=== PATIENT | female | born 1990 | race Caucasian/White ===

== ENCOUNTER 2021-06-30 11:00 | Inpatient (IN) | payer MEDICAID, SELFPAY ==
[2021-06-30 11:03] VITALS: BP 137/80; PULSE 107; RESP 17; TEMP 36.6; O2SAT 99; BMI 17.0
--- NOTE | 2021-06-30 11:25 | EX.ED.SAOD ---
HPI History of Present Illness Chief Complaint: Substance Abuse Narrative Narrative: Patient presenting for detox. She states she is already spoken with social work outpatient and she is also talked to 180 about getting residential housing after she detoxes. Patient states that she uses Suboxone, fentanyl, cocaine, Xanax. Her last use was about 3 days ago. Her major symptoms are fatigue. She is not vomiting. She does not admit to any cramping. She states he has no significant medical problems other than drug use. She denies EtOH abuse. [facility] Medical History (Updated 06/30/21 @ 11:39 by Suni King) Anxiety Asthma Depression Home Medications bupropion HCl [Wellbutrin SR] 150 mg PO DAILY 06/30/21 [History Last Taken Unknown] hydroxyzine HCl 50 mg PO QHS 06/30/21 [History Last Taken Unknown] mirtazapine [Remeron] 15 mg PO DAILY 06/30/21 [History Last Taken Unknown] quetiapine [Seroquel] 100 mg PO QHS 06/30/21 [History Last Taken Unknown] ropinirole [Requip] 0.5 mg PO QHS 06/30/21 [History Last Taken Unknown] Allergy/AdvReac Type Severity Reaction Status Date / Time No Known Allergies Allergy Verified 06/30/21 11:01 Surgical History (Updated 06/30/21 @ 11:39 by Suni King) [place] teeth extracted Social History Smoking Status: Current every day smoker tobacco type: cigarettes ROS ROS ED Constitutional Constitutional ED: Denies chills or fever(s) Eyes Eyes: Denies blurry vision or diplopia ENT ENT ED: Denies rhinorrhea or sore throat Cardiovascular Cardiovascular: Denies chest pain or palpitations Respiratory/Chest Respiratory/Chest: Denies cough, dyspnea or sputum Gastrointestinal Gastrointestinal: Denies abdominal pain, nausea or vomiting Genitourinary Genitourinary ED: Denies dysuria or urinary frequency Musculoskeletal Musculoskeletal: Denies arthralgias or myalgias Integumentary Denies abscess or rash Neurologic Neurologic: Denies headache(s), paresthesias or weakness EXAM Physical Exam Const Vital Signs: 06/30/21 11:03 Temperature 97.8 F Temperature Source Temporal Pulse Rate 107 H Respiratory Rate 17 Blood Pressure 137/80 H Blood Pressure Mean 99 Pulse Ox 99 Oxygen Delivery Method Room Air General Appearance ED: Negative for pallor HEENT Reports normocephalic, head/scalp atraumatic and moist mucous membranes Eyes PERRL and EOMs intact bilaterally Neck no lymphadenopathy and supple Chest Wall inspection of chest normal and palpation of chest normal Resp normal respiratory effort and clear to auscultation bilaterally Auscultation: Negative for rales, rhonchi or wheezes Cardio regular rate and regular rhythm GI normal to inspection, nondistended, normoactive bowel sounds and non-distended Auscultation: normoactive bowel sounds Palpation: soft Narrative: Deferred Extremity normal to inspection General Extremety ED: Yes edema and tenderness General Extremity: edema Neuro oriented x3 and CN's II-XII intact bilaterally Sensorium / Orientation: alert Motor Exam: strength 5/5 throughout Psych mental status grossly normal Attitude: No agitated Skin no rashes or lesions noted and no wounds General Skin Exam: Negative for jaundice or pallor MDM MDM MDM Narrative Medical decision making narrative: 31-year-old female presenting for detox from Suboxone, fentanyl, Xanax, cocaine. She states she last used 3 days ago. She is not have any significant symptoms currently. She is already been able to set up outpatient care following hospitalization. She is spoken to 180. Patient's blood work today is normal. EtOH negative. Drug screen positive for cocaine but negative for visit as a pains, and fentanyl. EtOH negative. Serum test is negative. protective services case worker did come and speak with her in the emergency room. She was discussed with the hospitalist for admission. Impression: 1 opioid detox 2. Benzodiazepine detox Lab Data Attestation: I reviewed the patient's lab results. Labs: Laboratory Results - last 24 hr 06/30/21 06/30/21 06/30/21 11:42 11:42 11:42 WBC 4.4 RBC 4.72 Hgb 14.0 Hct 41.3 MCV 87.5 MCH 29.7 MCHC 33.9 RDW Std Deviation 41.4 RDW Coeff of Jose 13.0 Plt Count 307 MPV 9.4 Immature Gran % (Auto) 0.200 Neut % (Auto) 64.4 Lymph % (Auto) 27.8 Ford % (Auto) 6.2 Eos % (Auto) 0.9 Baso % (Auto) 0.5 Absolute Neuts (auto) 2.8 Absolute Lymphs (auto) 1.22 Nucleated RBC % 0 Sodium Potassium Chloride Carbon Dioxide Anion Gap BUN Creatinine Estim Creat Clear Calc Est GFR (MDRD) Af Amer Est GFR (MDRD) Non-Af BUN/Creatinine Ratio Glucose Calcium Total Bilirubin AST ALT Alkaline Phosphatase Total Protein Albumin Globulin Albumin/Globulin Ratio Serum , Qual NEGATIVE Urine Opiates Screen Urine Methadone Screen Ur Barbiturates Screen Ur Phencyclidine Scrn Ur Amphetamines Screen U Methamphetamin-MDMA U Benzodiazepines Scrn Urine Cocaine Screen U Cannabinoids Screen Ur Drug Screen Comment Ethyl Alcohol 3.0 06/30/21 06/30/21 11:42 11:54 WBC RBC Hgb Hct MCV MCH MCHC RDW Std Deviation RDW Coeff of Jose Plt Count MPV Immature Gran % (Auto) Neut % (Auto) Lymph % (Auto) Ford % (Auto) Eos % (Auto) Baso % (Auto) Absolute Neuts (auto) Absolute Lymphs (auto) Nucleated RBC % Sodium 141 Potassium 4.0 Chloride 111 H Carbon Dioxide 25.0 Anion Gap 5 BUN 9 Creatinine 0.72 Estim Creat Clear Calc 96.15 Est GFR (MDRD) Af Amer 121 Est GFR (MDRD) Non-Af 100 BUN/Creatinine Ratio 12.5 Glucose 99 Calcium 9.2 Total Bilirubin 0.50 AST 6 L ALT 15 Alkaline Phosphatase 85 Total Protein 8.3 H Albumin 3.8 Globulin 4.5 H Albumin/Globulin Ratio 0.8 L Serum , Qual Urine Opiates Screen NEGATIVE Urine Methadone Screen NEGATIVE Ur Barbiturates Screen NEGATIVE Ur Phencyclidine Scrn NEGATIVE Ur Amphetamines Screen NEGATIVE U Methamphetamin-MDMA NEGATIVE U Benzodiazepines Scrn NEGATIVE Urine Cocaine Screen POSITIVE H U Cannabinoids Screen NEGATIVE Ur Drug Screen Comment Ethyl Alcohol Discharge Plan Triage Chief Complaint: Substance Abuse ED Provider: Shaw Moore Dx/Rx/DC Orders Prescriptions: No Action bupropion HCl [Wellbutrin SR] 150 mg Tablet Sustained-Release 12 Hr 150 mg PO DAILY RF: 0 hydroxyzine HCl 50 mg Tablet 50 mg PO QHS RF: 0 quetiapine [Seroquel] 100 mg Tablet 100 mg PO QHS RF: 0 ropinirole [Requip] 0.5 mg Tablet 0.5 mg PO QHS RF: 0 mirtazapine [Remeron] 15 mg Tablet 15 mg PO DAILY RF: 0
[2021-06-30 11:58] LABS: Absolute Lymphocyte Count 1.22 X10^3/uL (0.83-4.51); Absolute Neutrophil Count 2.8 X10^3/uL (2.0-7.7); Basophil# 0.02 X10^3/uL; Basophil% 0.5 % (0-1); Eosinophil# 0.04 X10^3/uL; Eosinophils% 0.9 % (0-5); Hematocrit 41.3 % (37-47); Lymphocyte # 1.22 X10^3/ul (0.83-4.51); Lymphocyte % 27.8 % (19-41); Mean Corp Hgb Conc 33.9 g/dL (32-36); Mean Corpuscular Hgb 29.7 pg (27.0-32.0); Mean Corpuscular Volume 87.5 fL (81-99); Mean Platelet Vol. 9.4 fl (6.2-12.0); Monocyte# 0.27 X10^3/uL; Monocyte% 6.2 % (0-10); NRBC Flagged by Analyzer 0 % (0-5); Neutrophil # 2.83 X10^3/uL (2.7-7.7); Neutrophil % 64.4 % (47-70); Platelet Count 307 K/mm3 (150-450); RBC Distribution Width SD 41.4 fl (35.1-43.9); Red Blood Count 4.72 M/mm3 (4.2-5.4); White Blood Count 4.4 K/mm3 (4.4-11.0)
[2021-06-30 12:10] LABS: ALB/GLOB Ratio 0.8 RATIO (0.9-2.4); AST(SGOT) 6 U/L (15-37); Alanine Aminotransfer ALT/SGPT 15 U/L (13-56); Albumin, Serum 3.8 g/dL (3.2-5.0); Alkaline Phosphatase 85 U/L (45-117); Anion Gap 5 (5-15); BUN 9 mg/dL (7-18); BUN/Creat Ratio 12.5 RATIO (10-20); Calcium,Total 9.2 mg/dL (8.5-10.1); Chloride 111 mmol/L (98-107); Creatinine, Serum 0.72 mg/dL (0.55-1.02); EST Glomerular Filtration Rate 100 mL/min (>60); Est Glom Filt Rate - Afr Amer 121 mL/min (>60); Estimated Creatinine Clearance 96.15 ml/min; Globulin 4.5 g/dL (2.2-4.2); Glucose 99 mg/dL (74-106); Protein, Total 8.3 g/dL (6.4-8.2); Sodium Level 141 mmol/L (136-145)
[2021-06-30 12:26] LABS: Internal QC Validated? YES +Cl - CLEAR BKGD; Pregnancy, Serum, hCG Quali. NEGATIVE Negative
[2021-06-30 12:30] LABS: Amphetamine Urine VISTA NEGATIVE (<1000 ng/mL); Barbiturate Urine VISTA NEGATIVE (< 200 ng/mL); Benzodiazepine Urine VISTA NEGATIVE (< 200 ng/mL); Cocaine Urine VISTA POSITIVE (< 300 ng/mL); Ecstacy Urine VISTA NEGATIVE (< 500 ng/mL); Methadone Urine VISTA NEGATIVE (< 300 ng/mL); PCP Urine VISTA NEGATIVE (< 25 ng/mL); THC Urine VISTA NEGATIVE (< 50 ng/mL); Vista UDS pH Range 6
--- NOTE | 2021-06-30 12:42 | HP.PCM.HOS_ITS ---
[facility] - General General Date of Admission: 06/30/21 HPI Narrative HECTOR ARREGUIN, is a 31 F with a PMH as outlined who presents for acute opioid detox. She had reached out to [facility] for residential treatment. She uses suboxone, fentanyl, cocaine and xanax, with her last use about 3 days prior to admission. She complained of weakness and anxiety but denied any tremors, dizziness, nausea, vomiting or chest pain. REview of systems was otherwise negative. Patient admitted to using cocaine and benzodiazepines as well and states that the last time she used cocaine or Xanax was about 3 days prior to admission. She denied any alcohol use but did admit to smoking. Urine tox was positive for cocaine but negative for benzodiazepines and opiates Vitals on admission were blood pressure 113/68 with pulse rate of 87, respiratory rate of 18 and temperature of 97.8 Fahrenheit. She was saturating at 100% on room air. CBC and BMP were unremarkable. She has been admitted to manage for acute opioid withdrawal as well as benzodiazepine withdrawal [facility] Medical History (Updated 06/30/21 @ 16:[address] Noris Thompson MD) Anxiety Asthma Depression Irregular heart beat PTSD (post-traumatic stress disorder) Smoker Substance abuse Home Medications bupropion HCl [Wellbutrin SR] 150 mg PO DAILY 06/30/21 [History Last Taken Unknown] hydroxyzine HCl 50 mg PO QHS 06/30/21 [History Last Taken Unknown] mirtazapine [Remeron] 15 mg PO DAILY 06/30/21 [History Last Taken Unknown] quetiapine [Seroquel] 100 mg PO QHS 06/30/21 [History Last Taken Unknown] ropinirole [Requip] 0.5 mg PO QHS 06/30/21 [History Last Taken Unknown] Allergy/AdvReac Type Severity Reaction Status Date / Time No Known Allergies Allergy Verified 06/30/21 11:01 Surgical History (Updated 06/30/21 @ 13:50 by Bev Joshua) History of removal of cyst [place] teeth extracted Social History Smoking Status: Current every day smoker tobacco type: cigarettes ROS Constitutional Constitutional: Denies fatigue, fever(s), malaise or weakness ENT HEENT: Denies dysphagia or headache(s) Cardiovascular Cardiovascular: Denies chest pain, dyspnea on exertion, lightheadedness, orthopnea, palpitations or rapid heart rate Respiratory/Chest Respiratory/Chest: Denies cough, dyspnea, shortness of breath at rest, shortness of breath with exertion or wheezing Gastrointestinal Gastrointestinal: Reports constipation; Denies abdominal pain, nausea or vomiting Genitourinary Genitourinary: Denies burning urination or dysuria Musculoskeletal Musculoskeletal: Denies arthralgias, joint pain, joint stiffness or joint swelling Neurologic Neurologic: Denies confusion, dizziness, focal weakness, headache(s), numbness, seizures or syncope Psychiatric Psychiatric: Denies anxiety Allergic/Immunologic Allergic/Immunologic: Denies asthma Vital Signs Vital Signs Vital Signs: 06/30/21 11:03 Temperature 97.8 F Temperature Source Temporal Pulse Rate 107 H Respiratory Rate 17 Blood Pressure 137/80 H Blood Pressure Mean 99 Pulse Ox 99 Oxygen Delivery Method Room Air Weight Weight: 118 lb 9.739 oz Body Mass Index (BMI) 17.0 Physical Exam Const alert and oriented x3 General Appearance: cooperative HEENT normocephalic, head/scalp atraumatic, hearing grossly normal bilaterally and moist oral mucous membranes Eyes PERRL, EOMs intact bilaterally and conjunctivae normal Neck no lymphadenopathy, supple and no JVD Resp normal respiratory effort, no retractions, no use of accessory muscles and clear to auscultation bilaterally Cardio regular rate, regular rhythm, S1 normal heart sound, S2 normal heart sound and no murmurs GI normal to inspection, nondistended, normoactive bowel sounds, soft to palpation, non-tender and non-distended Extremity normal to inspection, full ROM and no clubbing, cyanosis or edema Peripheral Pulses: Yes pulses 2+ throughout Skin no rashes or lesions noted Neuro oriented x3 and CN's II-XII intact bilaterally Sensorium / Orientation: awake and alert Psych Mood & Affect: anxious Results Lab / Micro Data Result Diagrams: 06/30/21 11:42 06/30/21 11:42 Labs: Laboratory Results - last 24 hr 06/30/21 11:42: WBC 4.4, RBC 4.72, Hgb 14.0, Hct 41.3, MCV 87.5, MCH 29.7, MCHC 33.9, RDW Std Deviation 41.4, RDW Coeff of Jose 13.0, Plt Count 307, MPV 9.4, Immature Gran % (Auto) 0.200, Neut % (Auto) 64.4, Lymph % (Auto) 27.8, [place] % (Auto) 6.2, Eos % (Auto) 0.9, Baso % (Auto) 0.5, Absolute Neuts (auto) 2.8, Absolute Lymphs (auto) 1.22, Nucleated RBC % 0 06/30/21 11:42: Ethyl Alcohol 3.0 06/30/21 11:42: Serum , Qual NEGATIVE 06/30/21 11:42: Sodium 141, Potassium 4.0, Chloride 111 H, Carbon Dioxide 25.0, Anion Gap 5, BUN 9, Creatinine 0.72, Estim Creat Clear Calc 96.15, Est GFR (MDRD) Af Amer 121, Est GFR (MDRD) Non-Af 100, BUN/Creatinine Ratio 12.5, Glucose 99, Calcium 9.2, Total Bilirubin 0.50, AST 6 L, ALT 15, Alkaline Phosphatase 85, Total Protein 8.3 H, Albumin 3.8, Globulin 4.5 H, [place] min/Globulin Ratio 0.8 L 06/30/21 11:54: Urine Opiates Screen NEGATIVE, Urine Methadone Screen NEGATIVE, Ur Barbiturates Screen NEGATIVE, Ur Phencyclidine Scrn NEGATIVE, Ur Amphetamines Screen NEGATIVE, U Methamphetamin-MDMA NEGATIVE, U Benzodiazepines Scrn NEGATIVE , Urine Cocaine Screen POSITIVE H, U Cannabinoids Screen NEGATIVE, Ur Drug Sc reen Comment Assessment & Plan Assessment/Plan (1) Acute opioid withdrawal: (2) Benzodiazepine abuse: PLAN: #Acute opioid withdrawal * Patient very anxious. Urine tox negative for opiates. * Started on opiate withdrawal protocol with buprenorphine. Monitor COWS score. * Adjunctive meds for symptomatic relief. * #Polysubstance abuse * In addition to opiates, patient also uses benzodiazepines and cocaine. Her last use of benzodiazepines was about 3 days ago. * Since patient is at risk of withdrawal, will start on benzodiazepine withdrawal protocol with Ativan. * Adjunctive meds for symptomatic relief. * #Depression: On mirtazapine and bupropion #PTSD: On Seroquel bupropion as well as mirtazapine DVT prophylaxis: Low risk. Encourage ambulation. Charges/Coding Visit Charges Inpatient E&M: 21649 Init Hosp L3
[2021-06-30 12:46] VITALS: BP 111/72; PULSE 87; RESP 14; TEMP 36.4; O2SAT 100
--- NOTE | 2021-06-30 12:52 | CM.ED ---
Social Work Consult: Substance Abuse Referral source: Dr. Moore Met with patient in room. Introduced self and social worker school role. Patient agreeable to speak with this social worker school. Patient reports to abuse/use multiple substances including cocaine, Suboxone (from the streets), and others. Patient here seeking medical management of withdrawal symptoms. Patient reports to have been speaking with a social worker school at [facility]. Patient reports to have also been talking with a Sarah at [facility] for residential after completed with program at [facility]. Sarah's contact number is [phone]. Per patient, Sarah is holding a bed. Patient verbally agreeing to [facility] contract. Patient request for this social worker school to contact patient mother, Jeanne about patient being admitted to the [facility] program. Active support provided. [facility] updated on patient admission to [facility] and intent to follow up with [facility] for residential. Idalia provided with contact number for Sarah. Shira Rincon MSW, JOSE-S
[2021-06-30 13:38] VITALS: BMI 16.5
[2021-06-30 13:43] VITALS: BP 113/68; PULSE 87; RESP 18; TEMP 36.6; O2SAT 100
[2021-06-30] MEDS: LORazepam 1 MG Tablet PO ×3 (14:25→22:54)
[2021-06-30] MEDS: Methocarbamol 750 MG Tablet 1500 MG PO ×2 (14:26→23:30)
[2021-06-30] MEDS: Buprenorphine HCl 2 MG TAB.SUBL SL ×2 (14:26→22:53)
[2021-06-30] MEDS: cloNIDine HCl 0.1 MG Tablet PO (14:26)
[2021-06-30 18:22] VITALS: BP 109/64; PULSE 95; RESP 18; TEMP 36.7; O2SAT 98
[2021-06-30 22:40] VITALS: BP 114/68; PULSE 105; RESP 18; TEMP 36.8; O2SAT 98
[2021-06-30] MEDS: hydrOXYzine PAM 25 MG Capsule 50 MG PO (22:57)
[2021-06-30] MEDS: Pramipexole Di-HCl 0.25 MG Tablet PO (22:57)
[2021-06-30] MEDS: QUEtiapine 100 MG Tablet PO (22:58)
[2021-07-01 02:45] VITALS: BP 105/63; PULSE 95; RESP 16; TEMP 36.5; O2SAT 100
[2021-07-01] MEDS: LORazepam 1 MG Tablet PO ×6 (02:48→22:28)
[2021-07-01] MEDS: Buprenorphine HCl 2 MG TAB.SUBL SL ×3 (06:47→22:26)
[2021-07-01 06:58] VITALS: BP 104/79; PULSE 118; RESP 16; TEMP 37; O2SAT 100
--- NOTE | 2021-07-01 08:02 | PN.HOSP_ITS ---
Subjective Subjective Patient seen and examined. She has no active complaints and feels well. She had an uneventful night and review of systems is otherwise negative. Objective Data Objective Data Vital Signs: Vital Signs Temp Pulse Resp BP Pulse Ox 98.6 F 118 H 16 104/79 100 07/01/21 06:58 07/01/21 06:58 07/01/21 06:58 07/01/21 06:58 07/01/21 06:58 Oxygen Delivery Method Room Air Weight: 114 lb 15.996 oz Body Mass Index (BMI) 16.5 Intake & Output: Intake and Output for Last 24 Hours 06/29/21 06/30/21 07/01/21 23:59 23:59 23:59 Intake Total 360 / 560 200 / 200 Balance 360 / 560 200 / 200 Medical Nutrition Assessment Dietitian: Malnutrition Criteria Met Start: 06/30/21 15:44 Freq: Status: Active Protocol: Document 06/30/21 15:44 AG (Rec: 06/30/21 15:44 AG [id number]) Nutrition Malnutrition Evidence of Malnutrition Exists Yes Malnutrition (severe): Acute Illness/Injury Evidenced By Suboptimal Energy Intake ( Severe),Weight Loss (Severe), Physical Changes (Severe) Clinical Problem Acute Disease or Injury Related Malnutrition Etiology severe, acute malnutrition r/t inadequate energy intake d/t nausea, substance abuse Signs/Symptoms as evidenced by unintentional wt loss of 20#/15% x 1 month, estimated PO intake meeting < 50% of estimated energy needs, severe muscle wasting/fat loss in acromion, orbital, and clavicle areas per physical exam Status Active Problem Recommendation Dietitian Recommendations/Changes Continue regular diet; will add 4oz ensure enlive w/meals and medpass per pt request. Will adjust supplements as appropriate. Lab / Micro Data Result Diagrams: 06/30/21 11:42 06/30/21 11:42 Labs: Laboratory Results - last 24 hr 06/30/21 11:42: WBC 4.4, RBC 4.72, Hgb 14.0, Hct 41.3, MCV 87.5, MCH 29.7, MCHC 33.9, RDW Std Deviation 41.4, RDW Coeff of Jose 13.0, Plt Count 307, MPV 9.4, Immature Gran % (Auto) 0.200, Neut % (Auto) 64.4, Lymph % (Auto) 27.8, Mccreary % (Auto) 6.2, Eos % (Auto) 0.9, Baso % (Auto) 0.5, Absolute Neuts (auto) 2.8, Absolute Lymphs (auto) 1.22, Nucleated RBC % 0 06/30/21 11:42: Ethyl Alcohol 3.0 06/30/21 11:42: Serum , Qual NEGATIVE 06/30/21 11:42: Sodium 141, Potassium 4.0, Chloride 111 H, Carbon Dioxide 25.0, Anion Gap 5, BUN 9, Creatinine 0.72, Estim Creat Clear Calc 96.15, Est GFR (MDRD) Af Amer 121, Est GFR (MDRD) Non-Af 100, BUN/Creatinine Ratio 12.5, Glucose 99, Calcium 9.2, Total Bilirubin 0.50, AST 6 L, ALT 15, Alkaline Phosphatase 85, Total Protein 8.3 H, Albumin 3.8, Globulin 4.5 H, Albumin/Globulin Ratio 0.8 L 06/30/21 11:54: Urine Opiates Screen NEGATIVE, Urine Methadone Screen NEGATIVE, Ur Barbiturates Screen NEGATIVE, Ur Phencyclidine Scrn NEGATIVE, Ur Amphetamines Screen NEGATIVE, U Methamphetamin-MDMA NEGATIVE, U Benzodiazepines Scrn NEGATIVE, Urine Cocaine Screen POSITIVE H, U Cannabinoids Screen NEGATIVE, Ur Drug Screen Comment Physical Exam Const alert and oriented x3 General Appearance: cooperative Exam Limitations: no limitations HEENT normocephalic, head/scalp atraumatic, hearing grossly normal bilaterally and moist oral mucous membranes Head and Scalp: normocephalic Eyes PERRL, EOMs intact bilaterally and conjunctivae normal Neck no lymphadenopathy, supple and no JVD Resp normal respiratory effort, no retractions, no use of accessory muscles and clear to auscultation bilaterally Cardio regular rate, regular rhythm, S1 normal heart sound, S2 normal heart sound and no murmurs GI normal to inspection, nondistended, normoactive bowel sounds, soft to palpation, non-tender and non-distended Extremity normal to inspection, full ROM and no clubbing, cyanosis or edema Peripheral Pulses: Yes pulses 2+ throughout Skin no rashes or lesions noted Neuro oriented x3 and CN's II-XII intact bilaterally Sensorium / Orientation: awake and alert Psych affect normal Assessment & Plan Assessment/Plan (1) Acute opioid withdrawal: (2) Benzodiazepine abuse: PLAN: #Acute opioid withdrawal * On opiate withdrawal protocol with buprenorphine. Monitor COWS score. * Adjunctive meds for symptomatic relief. * #Polysubstance abuse * In addition to opiates, patient also uses benzodiazepines and cocaine. Her las t use of benzodiazepines was about 3 days ago. * Since patient is at risk of withdrawal, on benzodiazepine withdrawal protocol with Ativan. * Adjunctive meds for symptomatic relief. * #Depression: On mirtazapine and bupropion #PTSD: On Seroquel bupropion as well as mirtazapine #Severe malnutrition * Has a BMI of only 16.5. * Nutrition on board: recommendation is to add 4oz Ensure Enlive with meals and medpass per patient request. * DVT prophylaxis: Low risk. Encourage ambulation. Charges/Coding Visit Charges Inpatient E&M: 32604 Subs Hosp L2
[2021-07-01] MEDS: Folic Acid 1 MG Tablet PO (09:33)
[2021-07-01] MEDS: Thiamine Hydrochloride 100 MG Tablet PO (09:33)
[2021-07-01] MEDS: hydrOXYzine PAM 25 MG Capsule 50 MG PO ×2 (09:35→22:26)
[2021-07-01] MEDS: Gabapentin 300 MG Capsule PO ×2 (09:39→18:11)
[2021-07-01] MEDS: buPROPion (XL) 150 MG TABLET.XL PO (09:40)
[2021-07-01 11:00] VITALS: BP 115/64; PULSE 98; RESP 18; TEMP 37; O2SAT 100
[2021-07-01 14:32] VITALS: BP 116/76; PULSE 100; RESP 18; TEMP 36.8; O2SAT 100
[2021-07-01 17:00] VITALS: RESP 18
--- NOTE | 2021-07-01 18:53 | ADDICTION ---
Addendum entered by Idalia Soliz 07/01/21 18:55: [facility] will transport oncedischarged. Original Note: This administrative underwriter met with PT to conduct ASAM, MSE, DUDIT assessments and to plan for d/c. PT A+Ox4 and participated actively. All assessments completed and placed in PT's chart. PT plans to f/u with individual counselor at [facility] for follow-up counseling services. PT did not indicate a need for transportation post d/c from [facility].
--- NOTE | 2021-07-01 19:19 | CM.ED ---
BUBBA received voice mail from Sarah Brewer at [facility] requesting call back. Call back number is [phone]. BUBBA called Sarah Brewer at [facility]. Asrah said that patient's mother said that patient is in detox currently. Sarah said that she completed the preadmission screen for patient and patient has been accepted at [facility]. Sarah stated that she can coordinate pick up and delivery driver for patient at discharge however, they do not do weekend admission. Sarah's call back number is listed above. Marilia MALCOLM
[2021-07-01 22:07] VITALS: BP 115/65; PULSE 109; RESP 18; TEMP 36.6; O2SAT 99
[2021-07-01] MEDS: cloNIDine HCl 0.1 MG Tablet PO (22:27)
[2021-07-01] MEDS: Methocarbamol 750 MG Tablet 1500 MG PO (22:27)
[2021-07-01] MEDS: QUEtiapine 100 MG Tablet PO (22:27)
[2021-07-01] MEDS: Pramipexole Di-HCl 0.25 MG Tablet PO (22:27)
[2021-07-01] MEDS: Mirtazapine 15 MG Tablet PO (22:28)
[2021-07-02 02:03] VITALS: BP 107/62; PULSE 104; RESP 18; TEMP 36.7; O2SAT 98
[2021-07-02] MEDS: LORazepam 1 MG Tablet PO ×6 (02:04→21:51)
[2021-07-02] MEDS: Gabapentin 300 MG Capsule PO (03:38)
[2021-07-02] MEDS: hydrOXYzine PAM 25 MG Capsule 50 MG PO ×2 (05:46→22:02)
[2021-07-02] MEDS: Buprenorphine HCl 2 MG TAB.SUBL SL ×2 (05:46→14:54)
[2021-07-02] MEDS: Methocarbamol 750 MG Tablet 1500 MG PO (05:47)
[2021-07-02 05:51] VITALS: BP 122/60; PULSE 111; RESP 16; TEMP 36.5; O2SAT 97
[2021-07-02 08:20] LABS: Thyroid Stim Hormone (TSH) 0.67 uIU/mL (0.358-3.74)
[2021-07-02] MEDS: Thiamine Hydrochloride 100 MG Tablet PO (08:23)
[2021-07-02] MEDS: Folic Acid 1 MG Tablet PO (08:23)
[2021-07-02 08:28] VITALS: BP 116/68; PULSE 100; RESP 16; TEMP 36.4; O2SAT 98
[2021-07-02] MEDS: buPROPion (XL) 150 MG TABLET.XL PO (10:55)
--- NOTE | 2021-07-02 11:23 | PN.HOSP_ITS ---
Subjective Subjective Patient seen and examined. She had no active complaints today. Patient did seem a bit drowsy today night speech was mildly slurred. I think this is because of the medication she has been receiving. Review of systems otherwise negative. Objective Data Objective Data Vital Signs: Vital Signs Temp Pulse Resp BP Pulse Ox 97.6 F L 100 16 116/68 98 07/02/21 08:28 07/02/21 08:28 07/02/21 08:28 07/02/21 08:28 07/02/21 08:28 Oxygen Delivery Method Room Air Weight: 114 lb 15.996 oz Body Mass Index (BMI) 16.5 Intake & Output: Intake and Output for Last 24 Hours 06/30/21 07/01/21 07/02/21 23:59 23:59 23:59 Intake Total 360 / 560 1950 / 2450 500 / 500 Balance 360 / 560 1950 / 2450 500 / 500 Medical Nutrition Assessment Dietitian: Malnutrition Criteria Met Start: 06/30/21 15:44 Freq: Status: Active Protocol: Document 06/30/21 15:44 AG (Rec: 06/30/21 15:44 [id number]) Nutrition Malnutrition Evidence of Malnutrition Exists Yes Malnutrition (severe): Acute Illness/Injury Evidenced By Suboptimal Energy Intake ( Severe),Weight Loss (Severe), Physical Changes (Severe) Clinical Problem Acute Disease or Injury Related Malnutrition Etiology severe, acute malnutrition r/t inadequate energy intake d/t nausea, substance abuse Signs/Symptoms as evidenced by unintentional wt loss of 20#/15% x 1 month, estimated PO intake meeting < 50% of estimated energy needs, severe muscle wasting/fat loss in acromion, orbital, and clavicle areas per physical exam Status Active Problem Recommendation Dietitian Recommendations/Changes Continue regular diet; will add 4oz ensure enlive w/meals and medpass per pt request. Will adjust supplements as appropriate. Lab / Micro Data Result Diagrams: 06/30/21 11:42 06/30/21 11:42 Labs: Laboratory Results - last 24 hr 07/02/21 07:50: TSH 0.67 Physical Exam Const alert and oriented x3 General Appearance: cooperative Orientation / Consciousness: lethargic Exam Limitations: no limitations HEENT normocephalic, head/scalp atraumatic, hearing grossly normal bilaterally and moist oral mucous membranes Head and Scalp: normocephalic Eyes PERRL, EOMs intact bilaterally and conjunctivae normal Neck no lymphadenopathy, supple and no JVD Resp normal respiratory effort, no retractions, no use of accessory muscles and clear to auscultation bilaterally Cardio regular rate, regular rhythm, S1 normal heart sound, S2 normal heart sound and no murmurs GI normal to inspection, nondistended, normoactive bowel sounds, soft to palpation, non-tender and non-distended Extremity normal to inspection, full ROM and no clubbing, cyanosis or edema Peripheral Pulses: Yes pulses 2+ throughout Skin no rashes or lesions noted Neuro oriented x3 and CN's II-XII intact bilaterally Sensorium / Orientation: awake and alert Psych Psych Narrative: flat affect, lethargic Assessment & Plan Assessment/Plan (1) Acute opioid withdrawal: (2) Benzodiazepine abuse: PLAN: #Acute opioid withdrawal * On opiate withdrawal protocol with buprenorphine. Monitor COWS score. * Adjunctive meds for symptomatic relief. * #Polysubstance abuse * In addition to opiates, patient also uses benzodiazepines and cocaine. * On benzodiazepine withdrawal protocol with Ativan. * Adjunctive meds for symptomatic relief. * #Depression: On mirtazapine and bupropion #PTSD: On Seroquel bupropion as well as mirtazapine #Severe malnutrition * Has a BMI of only 16.5. * Nutrition on board: recommendation is to add 4oz Ensure Enlive with meals and medpass per patient request. * DVT prophylaxis: Low risk. Encourage ambulation. Disposition: * Wants to go to an inpatient facility for further rehab. * Case management on board. * Patient accepted at [facility] for admission once medically stable. Charges/Coding Visit Charges Inpatient E&M: 55868 Subs Hosp L2
[2021-07-02 16:00] VITALS: BP 112/64; PULSE 88; RESP 18; TEMP 36.8; O2SAT 98
[2021-07-02 16:22] VITALS: PULSE 90
[2021-07-02] MEDS: Mirtazapine 15 MG Tablet PO (21:51)
[2021-07-02] MEDS: QUEtiapine 100 MG Tablet PO (21:51)
[2021-07-02] MEDS: Pramipexole Di-HCl 0.25 MG Tablet PO (21:52)
[2021-07-02 22:00] VITALS: BP 109/60; PULSE 97; RESP 16; TEMP 36.7; O2SAT 99
[2021-07-03] MEDS: Buprenorphine HCl 2 MG TAB.SUBL SL (02:50)
[2021-07-03 02:57] VITALS: BP 100/49; PULSE 100; RESP 18; TEMP 36.7; O2SAT 98
[2021-07-03] MEDS: LORazepam 1 MG Tablet PO ×2 (05:27→10:57)
[2021-07-03] MEDS: Methocarbamol 750 MG Tablet 1500 MG PO ×2 (05:32→21:15)
[2021-07-03] MEDS: Dicyclomine 10 MG Capsule 20 MG PO (05:32)
[2021-07-03] MEDS: Loperamide 2 MG Capsule PO ×2 (05:32→21:15)
[2021-07-03 10:00] VITALS: BP 100/68; PULSE 58; RESP 14; TEMP 36.6; O2SAT 100
[2021-07-03] MEDS: buPROPion (XL) 150 MG TABLET.XL PO (10:57)
[2021-07-03] MEDS: Folic Acid 1 MG Tablet PO (10:57)
[2021-07-03] MEDS: Thiamine Hydrochloride 100 MG Tablet PO (10:58)
--- NOTE | 2021-07-03 15:41 | PCM.PN.HOSP ---
Subjective Subjective Groggy today. Seen by addiction medicine who did not feel the patient was ready for discharge today. Objective Data Objective Data Vital Signs: Vital Signs Temp Pulse Resp BP Pulse Ox 36.6 C 58 L 14 100/68 100 07/03/21 10:00 07/03/21 10:00 07/03/21 10:00 07/03/21 10:00 07/03/21 10:00 Oxygen Delivery Method Room Air Weight: 52.163 kg Body Mass Index (BMI) 16.5 Intake & Output: Intake and Output for Last 24 Hours 07/01/21 07/02/21 07/03/21 23:59 23:59 23:59 Intake Total 19490 2650 / 2650 Balance 19490 2650 / 2650 Medical Nutrition Assessment Dietitian: Malnutrition Criteria Met Start: 06/30/21 15:44 Freq: Status: Active Protocol: Document 06/30/21 15:44 AG (Rec: 06/30/21 15:44 AG [id number]) Nutrition Malnutrition Evidence of Malnutrition Exists Yes Malnutrition (severe): Acute Illness/Injury Evidenced By Suboptimal Energy Intake ( Severe),Weight Loss (Severe), Physical Changes (Severe) Clinical Problem Acute Disease or Injury Related Malnutrition Etiology severe, acute malnutrition r/t inadequate energy intake d/t nausea, substance abuse Signs/Symptoms as evidenced by unintentional wt loss of 20#/15% x 1 month, estimated PO intake meeting < 50% of estimated energy needs, severe muscle wasting/fat loss in acromion, orbital, and clavicle areas per physical exam Status Active Problem Recommendation Dietitian Recommendations/Changes Continue regular diet; will add 4oz ensure enlive w/meals and medpass per pt request. Will adjust supplements as appropriate. Lab / Micro Data Result Diagrams: 06/30/21 11:42 06/30/21 11:42 Physical Exam Const Constitutional Narrative: Groggy. Afebrile. HEENT Head and Scalp: normocephalic Assessment & Plan Assessment/Plan (1) Acute opioid withdrawal: (2) Benzodiazepine abuse: PLAN: 1. Acute opiate withdrawal Patient is very somnolent and difficult to arouse today. Will discontinue the buprenorphine taper 2. Acute benzodiazepine withdrawal As above, will discontinue the Ativan. Plan is for the patient to go to residential treatment on the Charges/Coding Visit Charges Inpatient E&M: 74975 Subs Hosp L1
[2021-07-03 18:01] VITALS: BP 114/70; PULSE 97; RESP 14; TEMP 36.9; O2SAT 100
[2021-07-03 21:07] VITALS: BP 108/78; PULSE 106; RESP 18; TEMP 36.4; O2SAT 100
[2021-07-03] MEDS: QUEtiapine 100 MG Tablet PO (21:15)
[2021-07-03] MEDS: Mirtazapine 15 MG Tablet PO (21:15)
[2021-07-03] MEDS: hydrOXYzine PAM 25 MG Capsule 50 MG PO (21:15)
[2021-07-03] MEDS: Pramipexole Di-HCl 0.25 MG Tablet PO (21:15)
[2021-07-04 03:10] VITALS: BP 96/61; PULSE 101; RESP 18; TEMP 36.8; O2SAT 98
[2021-07-04 07:34] VITALS: BP 113/84; PULSE 105; RESP 16; TEMP 37; O2SAT 100
[2021-07-04] MEDS: Thiamine Hydrochloride 100 MG Tablet PO (07:41)
[2021-07-04] MEDS: Folic Acid 1 MG Tablet PO (07:42)
[2021-07-04] MEDS: buPROPion (XL) 150 MG TABLET.XL PO (07:42)
[2021-07-04] MEDS: Loperamide 2 MG Capsule PO (07:48)
[2021-07-04] MEDS: Methocarbamol 750 MG Tablet 1500 MG PO (07:48)
[2021-07-04] MEDS: Gabapentin 300 MG Capsule PO (07:48)
[2021-07-04] MEDS: Dicyclomine 10 MG Capsule 20 MG PO (07:48)
--- NOTE | 2021-07-04 08:39 | PCM.DC ---
Discharge Instructions Diet Discharge Diet: No restrictions Activity Discharge Activity: Return to Normal Activity Follow Up Care Test Results: Test results from this visit will be discussed in further detail at your follow-up appointment, if applicable. Discharge Plan Admission Admit Date/Time: 06/30/21 12:51 Primary Reason for Your Visit: opiate and benzodiazepine withdrawal. Attending Provider: Frederic García Discharge Orders/Prescriptions Prescriptions: New loperamide 2 mg Capsule 2 mg PO Q4H PRN PRN (Reason: LOOSE STOOLS) Qty: 0 RF: 0 Continued bupropion HCl [Wellbutrin SR] 150 mg Tablet Sustained-Release 12 Hr 150 mg PO DAILY RF: 0 hydroxyzine HCl 50 mg Tablet 50 mg PO QHS RF: 0 quetiapine [Seroquel] 100 mg Tablet 100 mg PO QHS RF: 0 ropinirole 0.5 mg Tablet 0.5 mg PO QHS RF: 0 mirtazapine [Remeron] 15 mg Tablet 15 mg PO DAILY RF: 0 Referrals / Follow Up: JOHN SYED [Other] Disposition Disposition (needs filled in before D/C Order can be placed): Home, Self Care
--- NOTE | 2021-07-04 08:41 | PCM.DC.SUM ---
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 Patient uses Suboxone, fentanyl, cocaine and alprazolam. Patient was started on buprenorphine as well as lorazepam taper. Patient was seen by addiction medicine on the and the plan is for patient to go to [facility] but that was simply changed over to a facility in [facility], near where she lives. I saw the patient on the and patient was very somnolent but would open her eyes. Initial plan was for patient to be discharged on the but given her condition, that decision was changed. But because of her somnolence, her lorazepam and buprenorphine were discontinued. Patient is more alert today but is complaining of diarrhea. Explained to her that that is likely related with the opiate withdrawal and she can take loperamide which she did actually take earlier this morning. Patient expressed being very anxious about being discharged today and stating that she was never told any of this. There is a note from addiction medicine on the that they did talk to her at that time. With plan at that time was for her to go to [facility]. Patient will be discharged today to go to facility out by [place] in stable condition. Physical Exam Const alert and no apparent distress Constitutional Narrative: appears older than stated age. Psych Mood & Affect: anxious Medical Records Data Medical Nutrition Assessment Dietitian: Malnutrition Criteria Met Start: 06/30/21 15:44 Freq: Status: Active Protocol: Document 06/30/21 15:44 AG (Rec: 06/30/21 15:44 AG [id number]) Nutrition Malnutrition Evidence of Malnutrition Exists Yes Malnutrition (severe): Acute Illness/Injury Evidenced By Suboptimal Energy Intake ( Severe),Weight Loss (Severe), Physical Changes (Severe) Clinical Problem Acute Disease or Injury Related Malnutrition Etiology severe, acute malnutrition r/t inadequate energy intake d/t nausea, substance abuse Signs/Symptoms as evidenced by unintentional wt loss of 20#/15% x 1 month, estimated PO intake meeting < 50% of estimated energy needs, severe muscle wasting/fat loss in acromion, orbital, and clavicle areas per physical exam Status Active Problem Recommendation Dietitian Recommendations/Changes Continue regular diet; will add 4oz ensure enlive w/meals and medpass per pt request. Will adjust supplements as appropriate. Weight / BMI Weight Weight: 52.163 kg Body Mass Index (BMI) 16.5 ABG / Lab / Microbiology Data Result Diagrams: 06/30/21 11:42 06/30/21 11:42 D/C Instructions Discharge Diet: No restrictions Meaningful Use Info Meaningful Use Diagnoses (Choose all that apply): None applicable Discharge Plan Admission Admit Date/Time: 06/30/21 12:51 Primary Reason for Your Visit: opiate and benzodiazepine withdrawal. Attending Provider: Frederic García Discharge Orders/Prescriptions Prescriptions: New loperamide 2 mg Capsule 2 mg PO Q4H PRN PRN (Reason: LOOSE STOOLS) Qty: 0 RF: 0 Continued bupropion HCl [Wellbutrin SR] 150 mg Tablet Sustained-Release 12 Hr 150 mg PO DAILY RF: 0 hydroxyzine HCl 50 mg Tablet 50 mg PO QHS RF: 0 quetiapine [Seroquel] 100 mg Tablet 100 mg PO QHS RF: 0 ropinirole 0.5 mg Tablet 0.5 mg PO QHS RF: 0 mirtazapine [Remeron] 15 mg Tablet 15 mg PO DAILY RF: 0 Referrals / Follow Up: JOHN SYED [Other] Disposition Disposition (needs filled in before D/C Order can be placed): Home, Self Care Charges/Coding Visit Charges Inpatient E&M: 83548 Disch Hosp
--- NOTE | 2021-07-04 09:52 | CASEMGMT ---
Social Work Note BUBBA updated that pt is stating she doesn't know where she is being discharged today. BUBBA placed a call to [facility] with [facility] who states pt is going to [facility] and transportation is arranged for 10:00am. BUBBA updated RN. Yuli Duarte [employer], WILDLIFE REHABILITATOR
== END 2021-07-04 10:49 | DRG 773 ==
LOC: ED 11:56 → MS3 12:56
PROVIDERS: Admitting Provider Student in an Organized Health Care Education/Training Program; Emergency Provider Student in an Organized Health Care Education/Training Program
DX: F11.23 Opioid dependence with withdrawal (principal); E43 Unspecified severe protein-calorie malnutrition; F13.10 Sedative, hypnotic or anxiolytic abuse, uncomplicated; F17.210 Nicotine dependence, cigarettes, uncomplicated; F41.9 Anxiety disorder, unspecified; F14.90 Cocaine use, unspecified, uncomplicated; R19.7 Diarrhea, unspecified; F32.A Depression, unspecified; F43.10 Post-traumatic stress disorder, unspecified; Z68.1 Body mass index [BMI] 19.9 or less, adult
CPT/HCPCS: 80053; 80307; 82077; 84443; 84703; 85025; 97802; 99283; 99406

== ENCOUNTER → 2022-08-09 | Outpatient (CLI) | payer MEDICAID, SELFPAY ==
[2022-08-09 16:43] LABS: Absolute Lymphocyte Count 1.27 X10^3/uL (0.83-4.51); Basophil# 0.03 X10^3/uL; Basophil% 0.5 % (0-1); Eosinophil# 0.05 X10^3/uL; Eosinophils% 0.8 % (0-5); Hematocrit 40.9 % (37-47); Hemoglobin 13.7 g/dL (12.0-15.0); Lymphocyte # 1.27 X10^3/ul (0.83-4.51); Lymphocyte % 19.1 % (19-41); Mean Corp Hgb Conc 33.5 g/dL (32-36); Mean Corpuscular Hgb 30.7 pg (27.0-32.0); Mean Corpuscular Volume 91.7 fL (81-99); Mean Platelet Vol. 9.4 fl (6.2-12.0); Monocyte# 0.31 X10^3/uL; Monocyte% 4.7 % (0-10); NRBC Flagged by Analyzer 0 % (0-5); Neutrophil # 4.98 X10^3/uL (2.7-7.7); Neutrophil % 74.7 % (47-70); Platelet Count 255 K/mm3 (150-450); RBC Distribution Width CV 12.6 % (11.6-14.6); RBC Distribution Width SD 41.6 fl (35.1-43.9); Red Blood Count 4.46 M/mm3 (4.2-5.4); White Blood Count 6.7 K/mm3 (4.4-11.0)
[2022-08-09 17:05] LABS: Hemoglobin A1c 4.5 % (3.8-5.6)
[2022-08-09 17:28] LABS: ALB/GLOB Ratio 1.2 RATIO (0.9-2.4); AST(SGOT) 9 U/L (15-37); Alanine Aminotransfer ALT/SGPT 17 U/L (13-56); Albumin, Serum 4.4 g/dL (3.2-5.0); Alkaline Phosphatase 45 U/L (45-117); Anion Gap 7 (5-15); BUN 10 mg/dL (7-18); BUN/Creat Ratio 11.6 RATIO (10-20); Calcium,Total 9.3 mg/dL (8.5-10.1); Chloride 107 mmol/L (98-107); Cholesterol 164 mg/dL (200); Creatinine, Serum 0.86 mg/dL (0.55-1.02); EST Glomerular Filtration Rate 81 mL/min (>60); Est Glom Filt Rate - Afr Amer 98 mL/min (>60); Globulin 3.6 g/dL (2.2-4.2); Glucose 95 mg/dL (74-106); High Density Lipoprotein 62 mg/dL; Potassium 3.6 mmol/L (3.5-5.1); Sodium Level 141 mmol/L (136-145); Thyroid Stim Hormone (TSH) 1.22 uIU/mL (0.358-3.74); Triglycerides 136 mg/dL; Very Low Density Lipoprotein 27 mg/dL (5-40)
[2022-08-09 17:39] LABS: HIV - WCH Non-Reactive (Nonreactive)
[2022-08-11 08:10] LABS: HEPATITIS B SURFACE AG Negative (Negative); Hep C Antibodies Non Reactive (Non Reactive); Hepatitis A IgM Antibody Negative (Negative); Hepatitis B Core AB IgM Negative (Negative)
== END | disposition home or self-care (01) ==
LOC: BIMLAB 15:56
PROVIDERS: PCP Internal Medicine; Referring Provider Internal Medicine; Visit Provider Internal Medicine
DX: F41.9 Anxiety disorder, unspecified (principal); F19.11 Other psychoactive substance abuse, in remission; F32.A Depression, unspecified; Z79.899 Other long term (current) drug therapy
CPT/HCPCS: 36415; 80053; 80061; 80074; 83036; 84443; 85025; 86703

== ENCOUNTER → 2023-02-26 | Outpatient (CLI) | payer MEDICAID, SELFPAY | END | disposition home or self-care (01) | LOC: BIMLAB 14:20 | PROVIDERS: PCP Internal Medicine; Visit Provider Internal Medicine | DX: R68.83 Chills (without fever) (principal) | CPT/HCPCS: 87635; 87804 ==

== ENCOUNTER → 2023-09-27 | Outpatient (CLI) | payer MEDICAID, SELFPAY ==
[2023-09-27 11:23] LABS: Absolute Lymphocyte Count 2.06 X10^3/uL (0.83-4.51); Absolute Neutrophil Count 3.6 X10^3/uL (2.0-7.7); Basophil# 0.03 X10^3/uL; Basophil% 0.5 % (0-1); Eosinophil# 0.13 X10^3/uL; Eosinophils% 2.1 % (0-5); Hematocrit 42.2 % (37-47); Hemoglobin 13.9 g/dL (12.0-15.0); Lymphocyte # 2.06 X10^3/ul (0.83-4.51); Mean Corp Hgb Conc 32.9 g/dL (32-36); Mean Corpuscular Hgb 30.5 pg (27.0-32.0); Mean Corpuscular Volume 92.5 fL (81-99); Mean Platelet Vol. 9.9 fl (6.2-12.0); Monocyte# 0.46 X10^3/uL; Monocyte% 7.4 % (0-10); NRBC Flagged by Analyzer 0 % (0-5); Neutrophil # 3.56 X10^3/uL (2.7-7.7); Neutrophil % 56.8 % (47-70); Platelet Count 262 K/mm3 (150-450); RBC Distribution Width CV 12.4 % (11.6-14.6); RBC Distribution Width SD 42.5 fl (35.1-43.9); Red Blood Count 4.56 M/mm3 (4.2-5.4); White Blood Count 6.3 K/mm3 (4.4-11.0)
[2023-09-27 12:21] LABS: ALB/GLOB Ratio 1.1 RATIO (0.9-2.4); AST(SGOT) 22 U/L (15-37); Alanine Aminotransfer ALT/SGPT 25 U/L (13-56); Alkaline Phosphatase 43 U/L (45-117); Anion Gap 5 (5-15); BUN 10 mg/dL (7-18); BUN/Creat Ratio 11.8 RATIO (10-20); Calcium,Total 9.1 mg/dL (8.5-10.1); Chloride 107 mmol/L (98-107); Cholesterol 132 mg/dL (200); Creatinine, Serum 0.85 mg/dL (0.55-1.02); EST Glomerular Filtration Rate 82 mL/min (>60); Est Glom Filt Rate - Afr Amer 99 mL/min (>60); Globulin 3.5 g/dL (2.2-4.2); Glucose 91 mg/dL (74-106); High Density Lipoprotein 50 mg/dL; Potassium 4.1 mmol/L (3.5-5.1); Protein, Total 7.5 g/dL (6.4-8.2); Sodium Level 139 mmol/L (136-145); Thyroid Stim Hormone (TSH) 1.83 uIU/mL (0.358-3.74); Triglycerides 125 mg/dL; Very Low Density Lipoprotein 25 mg/dL (5-40)
[2023-09-27 12:28] LABS: Hemoglobin A1c 4.4 % (3.8-5.6)
== END | disposition home or self-care (01) ==
LOC: BIMLAB 09:24
PROVIDERS: PCP Internal Medicine; Visit Provider Internal Medicine
DX: F41.9 Anxiety disorder, unspecified (principal); F32.A Depression, unspecified; Z79.899 Other long term (current) drug therapy
CPT/HCPCS: 36415; 80053; 80061; 83036; 84443; 85025

== ENCOUNTER 2024-12-07 19:27 | Inpatient (IN) | payer MEDICAID, SELFPAY ==
[2024-12-07 19:27] VITALS: BP 151/104; PULSE 106; RESP 16; TEMP 36.8; O2SAT 100; BMI 21.4
--- NOTE | 2024-12-07 19:32 | ED.RN ---
pt removed syringe with clear liquid substance in it from her purse. she said can you please get rid of this for me. i don't want it. its fentanyl this rn placed syringe in sharps container upon pts request.
[2024-12-07 20:04] LABS: Hematocrit 34.9 % (37-47); Hemoglobin 12.0 g/dL (12.0-15.0); Immature Granulocytes Count 0.010 X10^3/uL (0.0-0.0); Mean Corp Hgb Conc 34.4 g/dL (32-36); Mean Corpuscular Volume 87.5 fL (81-99); Mean Platelet Vol. 9.4 fl (6.2-12.0); NRBC Flagged by Analyzer 0 % (0-5); POSITIVE MORPHOLOGY YES; Platelet Count 216 K/mm3 (150-450); RBC Distribution Width CV 13.1 % (11.6-14.6); RBC Distribution Width SD 41.5 fl (35.1-43.9); Red Blood Count 3.99 M/mm3 (4.2-5.4); White Blood Count 4.5 K/mm3 (4.4-11.0)
[2024-12-07 20:07] LABS: Differential Indicated SCAN CRITERIA MET
[2024-12-07 20:54] LABS: Alcohol, Blood (Medical)-Serum < 10.1 mg/dL (<=10.0); Anion Gap 12 (5-15); BUN 12 mg/dL (4-19); BUN/Creat Ratio 17.0 RATIO (10-20); Calcium,Total 9.1 mg/dL (7.6-11.0); Carbon Dioxide 23.1 mmol/L (21.0-32.0); Chloride 104 mmol/L (98-108); Estimated Creatinine Clearance 117.70 ml/min (50-250); Glucose 112 mg/dL (70-99); Potassium 3.9 mmol/L (3.3-5.1)
[2024-12-07 21:13] LABS: Internal QC Validated? YES +Cl - CLEAR BKGD; Pregnancy, Serum, hCG Quali. NEGATIVE Negative; Record Kit Lot#, Serum Preg. 962302
[2024-12-07 21:27] VITALS: BP 112/60; PULSE 88; RESP 20; TEMP 36.6; O2SAT 100
--- OUTSIDE RECORDS SUMMARY | 2024-12-07 21:43 | XMS RPT_ITS | CCD ---
Author Organization [facility] Care Team Providers Care Debeader Name Role Phone Pcp, None Primary Care Provider UnavailRoxie Hurley Primary Care Provider Roxie Howell PA-C Primary Care Provider Dr. Odin Abraham Primary Care Provider Dr. Odin Abraham Attending Provider [phone] Dr. Odin Abraham Referring Provider [phone] Unavailable Primary Care Provider Unavailabl e Unavailable Primary Care Provider Unavailabl e Leigh Odin Primary Care Unavailable Odin Abraham Attending Unavailable Odin Abraham Referring Unavailable Odin Abraham Attending Unavailable Odin Abraham Referring Unavailable Leigh Odin Primary Care Unavailable Leigh Odin Primary Care Unavailable Leigh Odin Attending Unavailable Odin Abraham MD Primary Care Provider ROXIE HOWELL Primary Care Unavailable NICOLE TRINIDAD Attending Unavailable ROXIE HOWELL Primary Care Unavailable NIR NAVARRO Attending Unavailable ODIN ABRAHAM Primary Care Unavailable CATIE FLORES Attending Unavailable Medications Current Medications Medication Drug Class(es) Dates Sig (Normalized) Sig (Original) [id number] 200 actuat albuterol 0.09 mg/actuat metered dose inhaler (3 sources) beta2-Adrenergic Agonist Start: 07-04-2017 take 2 puff(s) by inhalation every six hours as needed for wheezing albuterol 108 (90 Base) MCG/ACT inhaler Indications: Mild intermittent asthma without complication Inhale 2 puffs into the lungs every 6 hours as needed for Wheezing and/or Shortness of breath. 1 Inhaler 4 07/04/2017 Active Start: 07-04-2017 take 2 puff(s) by in halation every six hours as needed for wheezing albuterol 108 (90 Base) MCG/ACT inhaler Indications: Mild intermittent asthma without complication Inhale 2 puffs into the lungs every 6 hours as needed for Wheezing and/or Shortness of breath. 1 Inhaler 4 07/04/2017 Active aluminum chloride 200 mg/ml topical solution (4 sources) Start: 05-28-2022 Aluminum Chlor oliver (Drysol) 20 % solution Active 1 APPLIC TOPICAL TWICE A WEEK 37.5 May 28, 2022 1:00am Start: 08-24-2020 aluminum chlor oliver (DRYSOL) 20 % external solution Indications: Excessive sweating Use daily at night 35 mL 5 08/24/2020 Active Start: 07-04-2017 aluminum chlor oliver (DRYSOL) 20 % external solution Indications: Excessive sweating Use daily at night 35 mL 5 07/04/2017 Active amoxicillin 875 mg / clavulanate 125 mg oral tablet (1 source) Penicillin-class Antibacterial Start: 05-05-2023 End: 05-10-2023 take 1 tablet by mouth twice daily amoxicillin-clavulanate potassium (AUGMENTIN) 875-125 mg per tablet Take 1 tablet by mouth two times a day for 5 days. 10 tablet 0 05/05/2023 05/10/2023 Active Comment on above: Take 1 tablet by blanquita two times a day for 5 days. 12 hr buPROPion hydrochloride 150 mg extended release oral tablet (12 sources) Aminoketone Start: 06-30-2021 End: 05-28-2022 take 1 tablet by mouth once daily Bupropion Hcl (Wellbutrin Sr) 150 mg tablet sustained-release 12 hr Active 150 MG PO DAILY May 28, 2022 9:54am buPROPion (WELLB UTRIN) 100 mg tablet Take 100 mg by mouth. Active take 1 tablet by mouth twice peter ly buPROPion (WELLBUTRIN XL) 150 MG 24 hr tablet Take 150 mg by mouth two times daily. 0 Active Comment on above: Take 100 mg by mouth . cephalexin 500 mg oral capsule (1 source) Cephalosporin Antibacterial Start: 10-27-19 End: 11-03-19 take 1 capsule by mouth four times daily cephALEXin (KEFLEX) 500 mg capsule Indications: Redness of skin Take 1 capsule by mouth four times daily for 7 days. 28 capsule 10/26/2024 11/02/2024 Active DULoxetine 30 mg delayed release oral capsule (1 source) Serotonin and Norepinephrine Reuptake Inhibitor take 1 capsule by mouth once daily in the morning DULoxetine (CYMBALTA) 30 MG capsule Take 30 mg by mouth daily. Take 1 capsule by mouth once daily in the morning. 0 Active fluticasone propionate 0.05 mg/actuat metered dose nasal spray (3 sources) Corticosteroid Start: 04-14-20 take 2 spray(s) by mouth once daily fluticasone (FLONASE) 50 mcg/actuation nasal spray Indications: Sore throat Use 2 Sprays in each nostril once daily. Rinse mouth after use. 1 Each 04/14/2024 Active Start: 09-12-2020 Fluticasone pr opionate (FLONASE) 50 MCG/ACT nasal spray Indications: Subacute frontal sinusitis 2 sprays by Each Nare route daily. 16 g 1 09/12/2020 Active levonorgestrel 0.823596 mg/hr intrauterine system (9 sources) Progestin, Progestin-containing Intrauterine Device Start: 01-08-2023 End: 01-06-2031 levonorgestrel (MIRENA) 21 mcg/24 hours (8 yrs) 52 mg IUD Indications: Encounter for IUD insertion 1 Each by INTRAUTERINE route as directed. 1 Each 01/08/2023 01/06/2031 Active Comment on above: 1 Each by INTRAUTERI NE route as directed. 12 hr loratadine 5 mg / pseudoephedrine sulfate 120 mg extended release oral tablet (1 source) alpha-Adrenergic Agonist Start: 09-12-2020 take 5-120 mg by mouth once loratadine-pseudoephe drine (CLARITIN-D 12-HOUR) 5-120 MG per tablet Indications: Subacute frontal sinusitis Take 1 tablet by mouth two times a day. 60 tablet 0 09/12/2020 Active 1 ml medroxyPROGESTERone acetate 150 mg/ml injection (3 sources) Progestin Start: 08-29-2020 medroxyPROGESTERone (DEPO-PROVERA) 150 MG/ML injection Indications: Encounter for Depo-Provera contraception , Encounter for initial prescription of contraceptives Inject 1 mL into the muscle every 3 months. 1 mL 0 08/29/2020 Active Start: 07-04-2017 medroxyPROGEST ERone (DEPO-PROVERA) 150 MG/ML injection Indications: Encounter for female control Inject 1 mL into the muscle every 3 months. 1 mL 0 07/04/2017 Active methylPREDNISolone (1 source) Corticosteroid Start: 01-11-2021 methylPREDNISolone (MEDROL DOSEPAK) 4 MG tablet Indications: Subacute frontal sinusitis follow package directions 21 tablet 0 01/11/2021 Active Metoprolol-hydroCHLOROt hiazide (METOPROLOL-HCTZ ER PO) (1 source) take 1 tablet by mouth once daily Metoprolol-hydroCHLORO thiazide (METOPROLOL-HCTZ ER PO) Take 25 mg by mouth. Take 1 tablet by mouth daily 0 Active mirtazapine 15 mg oral tablet (13 sources) Start: 06-30-2021 End: 05-28-2022 take 1 tablet by mouth once daily Mirtazapine (Remeron) 15 mg tablet Active 15 MG PO DAILY May 28, 2022 9:54am Start: 01-11-2021 take 1 tablet by blanquita th once daily mirtazapine (REMERON) 45 MG tablet Indications: Prolonged posttraumatic stress disorder , Anxiety and depression Take 1 tablet by mouth nightly. 30 tablet 1 01/11/2021 Active take 1 tablet by blanquita th once daily mirtazapine (REMERON) 30 MG tablet Take 30 mg by mouth nightly. 0 Active Comment on above: Take 15 mg by mouth. naltrexone 380 mg injection (10 sources) Opioid Antagonist Start: 05-28-2022 naltrexone ER (VIVITROL) 380 mg injection Inject intramuscularly. 05/28/2022 Active Start: 05-28-2022 inject 380 mg by int ramuscular injection every month Naltrexone Microspheres (Vivitrol) 380 mg suspension,extended rel recon Active 380 MG IM EVERY MONTH May 28, 2022 1:00am Comment on above: Inject intramuscular ly. predniSONE 20 mg oral tablet (2 sources) Start: 4 End: 4 take 2 tablets by mouth once daily predniSONE (DELTASONE) 20 mg tablet Indications: Sore throat Take 2 tablets by mouth once daily for 5 days. 10 tablet 04/14/2024 04/19/2024 Active Start: 10-07-2023 End: 10-12-2023 take 2 tablets by mouth once daily predniSONE (DELTASONE) 20 mg tablet Indications: Sore throat Take 2 tablets by mouth once daily for 5 days. 10 tablet 0 10/07/2023 10/12/2023 Active QUEtiapine 100 mg oral tablet (13 sources) Atypical Antipsychotic Start: 06-30-2021 End: 05-28-2022 take 1 tablet by mouth at bedtime Quetiapine (Seroquel) 100 mg tablet Active 100 MG PO AT BEDTIME May 28, 2022 9:54am Start: 01-11-2021 take 150 mg by mouth once daily in the evening QUEtiapine Fumarate 150 MG TB24 Indications: Prolonged posttraumatic stress disorder , Anxiety and depression Take 150 mg by mouth every evening. 30 each 1 01/11/2021 Active Comment on above: Take 100 mg by mouth . sertraline 25 mg oral tablet (1 source) Serotonin Reuptake Inhibitor Start: 07-04-19 18 take 1 tablet by mouth once daily sertraline (ZOLOFT) 25 MG tablet Indications: Anxiety and depression Take 1 tablet by mouth daily. 30 tablet 0 07/04/2017 Active 24 hr venlafaxine 37.5 mg extended release oral capsule (1 source) Serotonin and Norepinephrine Reuptake Inhibitor Start: 01-12-20 21 take 1 capsule by mouth once daily venlafaxine (EFFEXOR-XR) 37.5 MG 24 hr capsule Indications: Prolonged posttraumatic stress disorder , Anxiety and depression Take 1 capsule by mouth daily. 30 capsule 1 01/11/2021 Active Completed/Discontinued Medications Medication Drug Class(es) Dates Sig (Normalized) Sig (Original) Desogestrel / Ethinyl Estradiol (2 sources) Progestin, Estrogen Start: 09-28-2022 End: 01-08-2023 take 1 tablet by mouth once daily, then take 0.15 tablet by mouth once Desogestrel-Ethinyl Estradiol (APRI) 0.15-0.03 mg per tablet Take 1 tablet by mouth once daily for 28 days. 28 tablet 3 09/28/2022 01/08/2023 Discontinued Start: 09-28-2022 take 1 tablet by blanquita once daily, then take 0.15 tablet by mouth once Desogestrel-Ethinyl Estradiol (APRI) 0.15-0.03 mg per tablet Take 1 tablet by mouth once daily for 28 days. 28 tablet 3 09/28/2022 Active Comment on above: Take 1 tablet by blanquita once daily for 28 days. hydrOXYzine hydrochloride 50 mg oral tablet (4 sources) Antihistamine Start: 06-30-19 End: 05-28-19 take 50 mg by mouth at bedtime Hydroxyzine Hcl Discontinued 50 MG PO AT BEDTIME June 30, 2021 1:00am May 28, 2022 9:25am Start: 01-11-2021 take 1 tablet by blanquita twice daily as needed for pain hydrOXYzine (ATARAX) 50 MG tablet Indications: Prolonged posttraumatic stress disorder , Anxiety and depression Take 1 tablet by mouth 2 times daily as needed for Anxiety (or sinus pain). 60 tablet 1 01/11/2021 Active Start: 07-04-2017 take 1 capsule by mo [facility] three times daily as needed for anxiety hydrOXYzine (VISTARIL) 25 MG capsule Indications: Anxiety and depression Take 1 capsule by mouth 3 times daily as needed for Anxiety. 30 capsule 0 07/04/2017 Active loperamide hydrochloride 2 mg oral capsule (1 source) Opioid Agonist Start: 07-04-2021 End: 05-28-2022 take 2 mg by mouth every four hours as needed Loperamide Discontinued 2 MG PO EVERY 4 HOURS NEEDED 0 July 04, 2021 1:00am May 28, 2022 9:54am rOPINIRole 0.5 mg oral tablet (3 sources) Nonergot Dopamine Agonist Start: 06-30-2021 End: 05-28-2022 take 0.5 mg by mouth at bedtime Ropinirole Discontinued 0.5 MG PO AT BEDTIME June 30, 2021 1:00am May 28, 2022 9:25am Start: 01-11-2021 take 1 tablet by blanquita once daily rOPINIRole (REQUIP) 0.5 MG tablet Indications: Restless leg syndrome Take 1 tablet by mouth nightly. 30 tablet 5 01/11/2021 Active take 1 tablet by blanquita three times daily at bedtime ROPINIRole (REQUIP) 0.25 MG tablet Take 0.25 mg by mouth 3 times daily. Take 2 tablets by mouth at bedtime. 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] 05-28-2022 Chronic Contraceptive and procreative management (6 sources) Contraception status; Translations: [Encounter for initial prescription of contraceptives, unspecified] Onset: 07-04-2017 07-04-2017 Episodic Headache; including migraine (1 source) Headache Onset: 04-18-2024 Episodic Immunizations and screening for infectious disease (2 sources) Patient encounter status; Translations: [Encounter for screening for infections with a predominantly sexual mode of transmission] Episodic Mood disorders (1 source) Depressive disorder; Translations: [Depression] 05-24-2022 Chronic Mood disorders (1 source) Mood disorders; Translations: [Depression, unspecified] Onset: 09-05-2023 Other inflammatory condition of skin (1 source) Erythema; Translations: [Erythematous condition, unspecified] 10-26-2024 Episodic Other inflammatory condition of skin (1 source) Erythematous condition, unspecified; Translations: [Redness of skin] Onset: 10-26-2024 Episodic Other lower respiratory disease (1 source) Cough Onset: 04-18-2024 Episodic Other screening for suspected conditions (not mental disorders or infectious disease) (1 source) Encounter for screening for malignant neoplasm of cervix; Translations: [Screening for malignant neoplasms of cervix] 05-28-2022 Episodic Other skin disorders (1 source) Generalized hyperhidrosis; Translations: [Generalized hyperhidrosis] 05-28-2022 Episodic Other upper respiratory disease (1 source) Seasonal allergy; Translations: [Other seasonal allergic rhinitis] 05-28-2022 Chronic Other upper respiratory disease (1 source) Deviated nasal septum; Translations: [Deviated nasal septum] 05-28-2022 Episodic Other upper respiratory disease (1 source) Nasal congestion Onset: 04-18-2024 Episodic Other upper respiratory infections (1 source) Bacterial sinusitis; Translations: [Chronic sinusitis, unspecified] 05-05-2023 Chronic Other upper respiratory infections (7 sources) Acute upper respiratory infection; Translations: [Acute upper respiratory infection, unspecified] Onset: 08-12-2023 05-05-2023 Episodic Residual codes; unclassified (1 source) High risk heterosexual behavior; Translations: [High risk heterosexual behavior] Episodic Substance-related disorders (5 sources) Benzodiazepine misuse; Translations: [Sedative, hypnotic or anxiolytic abuse, uncomplicated] 07-12-2021 Chronic Substance-related disorders (1 source) Opioid withdrawal; Translations: [Opioid use, unspecified with withdrawal] 07-12-2021 Episodic Viral infection (1 source) Viral disease; Translations: [Viral infection, unspecified] 03-26-2023 Episodic Past or Other Problems Problem Classification Problem Date Documented Date Episodic/Chronic Other aftercare (2 sources) Other shelter (current) drug therapy; Translations: [Long-term (current) use of other medications] Onset: 09-05-2023 05-28-2022 Episodic Other aftercare (9 sources) Long-term current use of antipsychotic medication; Translations: [Other joint terminal attack controller (current) drug therapy] Onset: 09-28-2022 09-28-2022 Episodic Other skin disorders (3 sources) Excessive sweating; Translations: [Generalized hyperhidrosis] Onset: 07-04-2017 07-04-2017 Episodic Results Test Name Value Interpretation Reference Range Facility [facility] 10-26-2024 OV Office Visit ([facility]WSTR ) CHRISTA ARREGUIN ([id number]) 1990 F Date Time Provider Department 10/26/24 6:45 PM CATIE FLORES [facility] During your visit today, we recorded the following information about you: Temperature Pulse Respiration Blood pressure 97.6 degrees 101/minute 18/minute 132/82 Weight 70.6 kg Catie Flores APRN.DIE CAST ENGINEER 10/26/2024 7:31 PM Signed Subjective The history is provided by the patient. No english as a second language instructor was used. HPI Christa Arreguin is a 34 year old female who presents today for CC of left forearm swelling and redness. Patient admits to being an IV drug user and thinks she has an infection. She has redness and swelling in lower forearm, tender to touch. She denies any fever or purulent drainage. She has not used any medication or treatment. BP 132/82 Pulse 101 Temp 36.4 ?C (97.6 ?F) (Tympanic) Resp 18 Wt 70.6 kg (155 lb 10.3 oz) LMP 12/23/2022 SpO2 99% BMI 23.15 kg/m? Social History Tobacco Use Smoking status: Never Passive exposure: Never Smokeless tobacco: Never Tobacco comments: Pt vapes Vaping Use Vaping status: current everyday user Substances: Nicotine Substance Use Topics Alcohol use: Not Currently Comment: sober 15 mos Drug use: Not Currently Types: Heroin Comment: pt has been in recovery for 15 mos PAST MEDICAL HISTORY Diagnosis Date Alcohol dependence (HCC) has been sober for 15 mos Anxiety and depression Drug dependency (HCC) has been clean for 15 mos I have confirmed and edited as necessary, the [facility] Review of Systems Constitutional: Negative for chills and fever. Musculoskeletal: Negative for joint pain and myalgias. Skin: Negative for itching and rash. Redness and tenderness of skin, left forearm All other systems reviewed and are negative. Objective Physical Exam Vitals and nursing note reviewed. Pulmonary: Effort: Pulmonary effort is normal. Skin: General: Skin is warm and dry. Findings: Erythema present. Comments: Tender to touch Neurological: Mental Status: She is alert and oriented to person, place, and time. Psychiatric: Mood and Affect: Affect normal. History and Record Review External record(s) reviewed: prior labs/imaging, prior outpatient record and prior inpatient record. Findings from review of inpatient records: none available Findings from review of prior labs/imaging: Previous Renal Function Panel Reviewed No results within last 365 days. ASSESSMENT/PLAN: 1. Redness of skin - ICD9: 695.9, ICD10: L53.9 Appears to be an infection Keflex as ordered Monitor for worsening symptoms, when to see a higher level of care discussed. - CEPHALEXIN 500 MG CAPSULE Diagnosis and treatment plan were discussed and questions were answered to the patient's satisfaction. Pt acknowledged understanding of concepts and follow up plan. Specific signs and symptoms that would indicate the need for higher level of care were discussed in detail warranting prompt ER evaluation. Catie Flores APRN.Catie Ramirez APRN.CNP 10/26/2024 7:31 PM Signed -Clean with soap and water -Tylenol or Ibuprofen for discomfort -Observe for worsening - redness, warmth, foul odor, drainage or increase in discomfort or fever - to ER if occurs Allergies As of Date: 10/26/2024 (No Known Allergies) Date Reviewed: 10/26/2024 Reviewed by: Catie Flores APRN.CNP - Fully Assessed Reason for Visit: lleft arm pain and swelling [Other] Cmt: X 2 days Primary Visit Diagnosis:Redness of skin [L53.9] Order(s):cephALEXin (KEFLEX) 500 mg capsuleTake 1 capsule by mouth four times daily for 7 days.Disp: 28 capsuleRfl: 0 Prescriptions as of 10/26/2024 - cephALEXin (KEFLEX) 500 mg capsule Take 1 capsule by mouth four times daily for 7 days. - fluticasone (FLONASE) 50 mcg/actuation nasal spray Use 2 Sprays in each nostril once daily. Rinse mouth after use. - levonorgestrel (MIRENA) 21 mcg/24 hours (8 yrs) 52 mg IUD 1 Each by INTRAUTERINE route as directed. - buPROPion (WELLBUTRIN) 100 mg tablet Take 100 mg by mouth. - mirtazapine (REMERON) 15 mg tablet Take 15 mg by mouth. - naltrexone ER (VIVITROL) 380 mg injection Inject intramuscularly. - QUEtiapine (SEROQUEL) 100 mg tablet Take 100 mg by mouth. 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 Encounter Status:Closed by CATIE FLORES (more content not included)... Normal [facility]OVon 04-14-2024 CNOV Office Visit ([facility]WSTR ) KALLIENEVAEHCHRISTA ([id number]) 1990 F Date Time Provider Department 04/14/24 5:00 PM TUCKER DEVLIN [facility] During your visit today, we recorded the following information about you: Temperature Pulse Respiration Blood pressure 98.1 degrees 96/minute 18/minute 129/84 Weight 83.8 kg Tucker Devlin APRN.DIE CAST ENGINEER 04/14/2024 5:21 PM Signed Subjective HPI HPI Christa Arreguin is a 34 year old female who presents today for CC of st, fatigue, ear muffled. This started 4 days ago. Has tried otc medication for relief. Symptoms are worsened by nothing. Risk factors smoker. Denies possibility of being . .Patient presents with: Sore Throat: Fatigue, bilateral ear pressure and muffled hearing x4 days, strep exposure PAST MEDICAL HISTORY Diagnosis Date Alcohol dependence (HCC) has been sober for 15 mos Anxiety and depression Drug dependency (HCC) has been clean for 15 mos PAST SURGICAL HISTORY Procedure Laterality Date PAST SURGICAL HISTORY OF extraction of wisdom teeth PAST SURGICAL HISTORY OF Right removal of cyst on right wrist ALLERGIES Patient has no known allergies. MEDICATIONS levonorgestrel (MIRENA) 21 mcg/24 hours (8 yrs) 52 mg IUD 1 Each by INTRAUTERINE route as directed. buPROPion (WELLBUTRIN) 100 mg tablet Take 100 mg by mouth. mirtazapine (REMERON) 15 mg tablet Take 15 mg by mouth. QUEtiapine (SEROQUEL) 100 mg tablet Take 100 mg by mouth. naltrexone ER (VIVITROL) 380 mg injection Inject intramuscularly. (Patient not taking: Reported on 08/07/2023) FAMILY HISTORY Problem Relation Age of Onset No Known Problems Mother Heart Attack Father x2 had stent placement Hypertension Father No Known Problems Brother No Known Problems Brother Social History Tobacco Use Smoking status: Never Passive exposure: Never Smokeless tobacco: Never Tobacco comments: Pt vapes Vaping Use Vaping status: current everyday user Substances: Nicotine Substance Use Topics Alcohol use: Not Currently Comment: sober 15 mos Drug use: Not Currently Types: Heroin Comment: pt has been in recovery for 15 mos Review of Systems Constitutional: Positive for malaise/fatigue. Negative for fever. HENT: Positive for congestion, ear pain and sore throat. Negative for ear discharge and nosebleeds. Respiratory: Negative for cough, shortness of breath and wheezing. Musculoskeletal: Negative for neck pain. Skin: Negative for itching and rash. Objective Blood pressure 129/84, pulse 96, temperature 36.7 ?C (98.1 ?F), resp. rate 18, weight 83.8 kg (184 lb 11.9 oz), last menstrual period 12/23/2022, SpO2 100%. Physical Exam Constitutional: General: She is not in acute distress. Appearance: She is not toxic-appearing or diaphoretic. HENT: Head: Normocephalic and atraumatic. Right Ear: Hearing, tympanic membrane, ear canal and external ear normal. A PE tube is present. Left Ear: Hearing, tympanic membrane, ear canal and external ear normal. Nose: Nose normal. Mouth/Throat: Pharynx: Uvula midline. No pharyngeal swelling, oropharyngeal exudate, posterior oropharyngeal erythema or uvula swelling. Eyes: General: Lids are normal. No scleral icterus. Right eye: No discharge. Left eye: No discharge. Conjunctiva/sclera: Conjunctivae normal. Pupils: Pupils are equal, round, and reactive to light. Neck: Trachea: Trachea normal. Cardiovascular: Rate and Rhythm: Normal rate and regular rhythm. Heart sounds: Normal heart sounds. Pulmonary: Effort: Pulmonary effort is normal. Breath sounds: Normal breath sounds. Musculoskeletal: Cervical back: Normal range of motion and neck supple. Lymphadenopathy: Cervical: No cervical adenopathy. Right cervical: No superficial cervical adenopathy. Left cervical: No superficial cervical adenopathy. Skin: Findings: No rash. Neurological: Mental Status: She is alert and oriented to person, place, and time. ASSESSMENT/PLAN: 1. Sore throat - ICD9: 462, ICD10: J02.9 - suspect viral - Group A strep molecular testing negative - Discussed supportive care treatment with fluids, rest and analgesia. - Contagious dz precautions discussed- including considered contagious until on antibiotics for 24 hours - STREP A MOLECULAR (POC) - PREDNISONE 20 MG TABLET - FLUTICASONE PROPIONATE 50 MCG/ACTUATION NASAL SPRAY,SUSPENSION Tucker Devlin APRN.DIE CAST ENGINEER Allergies As of Date: 04/14/2024 (No Known Allergies) Date Reviewed: 04/14/2024 Reviewed by: Aylin Escalante MA - Fully Assessed Reason for Visit: Sore Throat [200] Cmt: Fatigue, bilateral ear pressure and muffled hearing x4 days, strep exposure Primary Visit Diagnosis:Sore throat [J02.9] Order(s):STREP A MOLECULAR (POC) [8536760] Order #: [id number]. #:[id number] predniSONE (DELTASONE) 20 mg tabletTake 2 tablets by mouth once da (more content not included)... Normal [facility] STREP A MOLECULAR (POC)on Procedural Control Valid [facility] Strep A (POCT) Negative Negative [facility] Internal Medicine Office Vis iton 03-16-2024 Internal Medicine Office Visit [facility] [address] [place] [address] [place] [address] OFFICE VISIT Date of Service: 03/17/24 MR#: [id number] Acct: [id number] Name: CHRISTA ARREGUIN Rep #: [id number] : 1990 Provider: Dr. Odin salinas MD Age/Sex: 34/F Location: [facility] Status: Signed Intake Vital Signs 09/05/23 15:05 03/17/24 13:36 Height 5 ft 10 in 5 ft 10 in Weight: 185 lb BMI 26.5 BP 122/80 H Blood Pressure Location Lt brachial Position Sitting Respiration 16 Pulse 96 Pulse Source Monitor Temp 98.7 F Temp Source Temporal Pulse Oximetry (%) 96 Oxygen Delivery Method room air Intake Visit Reasons: 6 M FU Chief Complaint: 6 M FU Healthcare Sales Representative Required: No Is patient in pain?: No Allergies No Known Allergies Allergy (Verified 03/17/24 13:31) Medications ???Medication ???Instructions ???Recorded ???Confirmed ???Type levonorgestrel 21 mcg/24 hr (up to 1 device intrauterine ONCE 02/26/23 03/17/24 History 8 years) 52 mg intrauterine device (Mirena) fexofenadine 180 mg tablet 180 mg PO DAILY PRN 09/05/23 03/17/24 History (Carol Allergy) fluticasone propionate 50 1 spray intranasal DAILY PRN 09/05/23 03/17/24 History mcg/actuation nasal spray,suspension (Flonase Allergy Relief) mirtazapine 15 mg tablet (Remeron) 15 mg PO DAILY #90 tabs 11/18/23 03/17/24 Rx quetiapine 100 mg tablet (Seroquel) 100 mg PO QHS #90 tabs 11/18/23 03/17/24 Rx aluminum chloride 20 % topical 1 applic topical 2XW #60 mL 03/17/24 03/17/24 Rx solution (Drysol Dab-O-Matic) bupropion HCl 200 mg tablet,12 hr 200 mg PO BID #60 ea 03/17/24 03/17/24 Rx sustained-release Nurse's Note: Needs refill on drysol, states she would like wellbutrin upped, isn't feeling as effective. States she may want to wean off remeron. Declines flu vaccine. 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 She is up to date on her routine blood work and screening. She doesn't want her flu shot. She continues to vape daily and uses about 1 cartridge per month. She states she is getting closer to wanting to quit, but isn't there yet. She does need refills. She reports she just recently monitoring her diet and eating healthy. She hasn't been going to the gym recently although she has a membership. The patient has a history of drug abuse. She reports that she did 90 days in a treatment program, transitional housing and is now at the sober living facilities. She is doing well and has been sober since June of 2021. The patient reports she has good support including family and friends. She reports she is still very involved in the program. The patient has had problems with depression and anxiety since she was around [age]. The patient reports she still feels like she has a loss of interest and motivation to do things. She states she feels like she is able to get herself out of any depression episodes, but does continue to struggle with anxiety. In the past, she was on clonidine. She also thinks she did lexapro and prozac, but states that was a long time ago and doesn't recall why it was stopped. While she feels that her medications do help, she doesn't know if she needs adjustments. She is also wondering if she may be able to get off the remeron altogether. The patient continues to do well with the drysol for her sweating. Patient has an IUD in place and follows with OBGYN. ROS Const Constitutional: Positive for weight change (6 pound weight gain); No body ache, chills, excessive sweating, fatigue, fever(s), frequent falls, headache(s), snoring, weakness, sleep problems or change in appetite Eyes Eyes: No blurry vision, change in vision, eye pain or Light sensitivity ENT ENT: No abnormal hearing, ear or mastoid pain, tinnitus, nasal conges (more content not included)... Normal [facility] STREP A MOLECULAR (POC)on Procedural Control Valid [facility] Strep A (POCT) Negative Negative [facility] CBC W/Diff, Automatedon 09-17 Absolute Lymph 2.06 X10 3/uL Normal 0.83-4.51 [facility] Comment on above: Performed By: #### L 501.9985, L500.4050, L500.4100, L100.0100, L501.9520 #### [facility] [address] [place], [address] Absolute Neut 3.6 X10 3/uL Normal 2.0-7.7 [facility] Comment on above: Performed By: #### L 501.9985, L500.4050, L500.4100, L100.0100, L501.9520 #### [facility] [address] [place], [address] Basophils/100 WBC (Bld) 0.5 % Normal 0-1 [facility] Comment on above: Performed By: #### L 501.9985, L500.4050, L500.4100, L100.0100, L501.9520 #### [facility] [address] [place], [address] Eosinophils/100 WBC (Bld) 2.1 % Normal 0-5 [facility] Comment on above: Performed By: #### L 501.9985, L500.4050, L500.4100, L100.0100, L501.9520 #### [facility] [address] [place], [address] Erythrocyte distribution width (RBC) [Ratio] 12.4 % Normal 11.6-14.6 [facility] Comment on above: Performed By: #### L 501.9985, L500.4050, L500.4100, L100.0100, L501.9520 #### [facility] [address] [place], [address] Hematocrit (Bld) [Volume fraction] 42.2 % Normal 37-47 [facility] Comment on above: Performed By: #### L 501.9985, L500.4050, L500.4100, L100.0100, L501.9520 #### [facility] [address] [place], [address] Hemoglobin (Bld) [Mass/Vol] 13.9 g/dL Normal 12.0-15.0 [facility] Comment on above: Performed By: #### L 501.9985, L500.4050, L500.4100, L100.0100, L501.9520 #### [facility] [address] [place], [address] IG% 0.200 Normal 0.0-0.9 [facility] Comment on above: Result Comment: IG% - Immature Granulocytes (promyelocytes, myelocytes and metamyelocytes) > 1% indicates that a LEFT SHIFT is Present. Performed By: #### L 501.9985, L500.4050, L500.4100, L100.0100, L501.9520 #### [facility] [address] [place], [address] Lymphocytes/100 WBC (Bld) 33.0 % Normal 19-41 [facility] Comment on above: Performed By: #### L 501.9985, L500.4050, L500.4100, L100.0100, L501.9520 #### [facility] [address] [place], [address] MCH (RBC) [Entitic mass] 30.5 pg Normal 27.0-32.0 [facility] Comment on above: Performed By: #### L 501.9985, L500.4050, L500.4100, L100.0100, L501.9520 #### [facility] [address] [place], [address] MCHC (RBC) [Mass/Vol] 32.9 g/dL Normal 32-36 [facility] Comment on above: Performed By: #### L 501.9985, L500.4050, L500.4100, L100.0100, L501.9520 #### [facility] [address] [place], [address] MCV (RBC) [Entitic vol] 92.5 fL Normal 81-99 [facility] Comment on above: Performed By: #### L 501.9985, L500.4050, L500.4100, L100.0100, L501.9520 #### [facility] [address] [place], [address] Monocytes/100 WBC (Bld) 7.4 % Normal 0-10 [facility] Comment on above: Performed By: #### L 501.9985, L500.4050, L500.4100, L100.0100, L501.9520 #### [facility] [address] [place], [address] Neutrophils/100 WBC (Bld) 56.8 % Normal 47-70 [facility] Comment on above: Performed By: #### L 501.9985, L500.4050, L500.4100, L100.0100, L501.9520 #### [facility] [address] [place], [address] Nucleated RBC (Bld) [#/Vol] 0 10*3/uL Normal 0-5 [facility] Comment on above: Performed By: #### L 501.9985, L500.4050, L500.4100, L100.0100, L501.9520 #### [facility] [address] [place], [address] Platelet mean volume (Bld) [Entitic vol] 9.9 fL Normal 6.2-12.0 [facility] Comment on above: Performed By: #### L 501.9985, L500.4050, L500.4100, L100.0100, L501.9520 #### [facility] [address] [place], [address] Platelets (Bld) [#/Vol] 262 10*3/uL Normal 150-450 [facility] Comment on above: Performed By: #### L 501.9985, L500.4050, L500.4100, L100.0100, L501.9520 #### [facility] [address] [place], [address] RBC (Bld) [#/Vol] 4.56 10*6/uL Normal 4.2-5.4 [facility] Comment on above: Performed By: #### L 501.9985, L500.4050, L500.4100, L100.0100, L501.9520 #### [facility] [address] [place], [address] RDW SD 42.5 fl Normal 35.1-43.9 [facility] Comment on above: Performed By: #### L 501.9985, L500.4050, L500.4100, L100.0100, L501.9520 #### [facility] [address] [place], [address] WBC (Bld) [#/Vol] 6.3 10*3/uL Normal 4.4-11.0 [facility] Comment on above: Performed By: #### L 501.9985, L500.4050, L500.4100, L100.0100, L501.9520 #### [facility] [address] [place], [address] Comprehensive Metabolic Prof [facility] 09-27-2023 Albumin [Mass/Vol] 4.0 g/dL Normal 3.2-5.0 [facility] Comment on above: Performed By: #### L 501.9985, L500.4050, L500.4100, L100.0100, L501.9520 #### [facility] [address] [place], [address] Albumin/Globulin [Mass ratio] 1.1 {ratio} Normal 0.9-2.4 [facility] Comment on above: Performed By: #### L 501.9985, L500.4050, L500.4100, L100.0100, L501.9520 #### [facility] [address] [place], [address] ALK P 43 U/L Low 45-117 [facility] Comment on above: Performed By: #### L 501.9985, L500.4050, L500.4100, L100.0100, L501.9520 #### [facility] [address] [place], [address] ALT [Catalytic activity/Vol] 25 U/L Normal 13-56 [facility] Comment on above: Performed By: #### L 501.9985, L500.4050, L500.4100, L100.0100, L501.9520 #### [facility] [address] [place], [address] AST [Catalytic activity/Vol] 22 U/L Normal 15-37 [facility] Comment on above: Performed By: #### L 501.9985, L500.4050, L500.4100, L100.0100, L501.9520 #### [facility] [address] [place], [address] Bilirubin [Mass/Vol] 0.70 mg/dL Normal 0.20-1.00 [facility] Comment on above: Result Comment: For patients on eltrombopag therapy, use of Dimension Fannin TBIL is not recommended. Performed By: #### L 501.9985, L500.4050, L500.4100, L100.0100, L501.9520 #### [facility] [address] [place], [address] BUN/CRE 11.8 RATIO Normal 10-20 [facility] Comment on above: Performed By: #### L 501.9985, L500.4050, L500.4100, L100.0100, L501.9520 #### [facility] [address] [place], [address] CA,Total 9.1 mg/dL Normal 8.5-10.1 [facility] Comment on above: Performed By: #### L 501.9985, L500.4050, L500.4100, L100.0100, L501.9520 #### [facility] [address] [place], [address] Chloride [Moles/Vol] 107 mmol/L Normal 98-107 [facility] Comment on above: Performed By: #### L 501.9985, L500.4050, L500.4100, L100.0100, L501.9520 #### [facility] [address] [place], [address] CO2 [Moles/Vol] 27.0 mmol/L Normal 21.0-32.0 [facility] Comment on above: Performed By: #### L 501.9985, L500.4050, L500.4100, L100.0100, L501.9520 #### [facility] [address] [place], [address] Creatinine [Mass/Vol] 0.85 mg/dL Normal 0.55-1.02 [facility] Comment on above: Result Comment: The validity of the calculated GFR GFRAA in patients over 70 years has not been determined. Clinical correlation is essential. Performed By: #### L 501.9985, L500.4050, L500.4100, L100.0100, L501.9520 #### [facility] [address] [place], [address] EST GFR - AA 99 mL/min Normal >60 [facility] Comment on above: Result Comment: Afri can Bermudian GFR Calc Performed By: #### L 501.9985, L500.4050, L500.4100, L100.0100, L501.9520 #### [facility] [address] [place], [address] GAP 5 Normal 5-15 [facility] Comment on above: Performed By: #### L 501.9985, L500.4050, L500.4100, L100.0100, L501.9520 #### [facility] [address] [place], [address] GFR/1.73 sq M.predicted among non-blacks MDRD (S/P/Bld) [Vol rate/Area] 82 mL/min/{1.73_m2} Normal >60 [facility] Comment on above: Result Comment: Non- GFR Calc Performed By: #### L 501.9985, L500.4050, L500.4100, L100.0100, L501.9520 #### [facility] [address] [place], [address] Globulin (S) [Mass/Vol] 3.5 g/dL Normal 2.2-4.2 [facility] Comment on above: Performed By: #### L 501.9985, L500.4050, L500.4100, L100.0100, L501.9520 #### [facility] [address] [place], [address] Glucose [Mass/Vol] 91 mg/dL Normal 74-106 [facility] Comment on above: Performed By: #### L 501.9985, L500.4050, L500.4100, L100.0100, L501.9520 #### [facility] [address] [place], [address] Potassium [Moles/Vol] 4.1 mmol/L Normal 3.5-5.1 [facility] Comment on above: Performed By: #### L 501.9985, L500.4050, L500.4100, L100.0100, L501.9520 #### [facility] [address] [place], [address] Sodium [Moles/Vol] 139 mmol/L Normal 136-145 [facility] Comment on above: Performed By: #### L 501.9985, L500.4050, L500.4100, L100.0100, L501.9520 #### [facility] [address] [place], [address] T PROT 7.5 g/dL Normal 6.4-8.2 [facility] Comment on above: Performed By: #### L 501.9985, L500.4050, L500.4100, L100.0100, L501.9520 #### [facility] [address] [place], [address] Urea nitrogen [Mass/Vol] 10 mg/dL Normal 7-18 [facility] Comment on above: Performed By: #### L 501.9985, L500.4050, L500.4100, L100.0100, L501.9520 #### [facility] [address] [place], [address] Hemoglobin A1con 09-27-2023 HbA1c (Bld) [Mass fraction] 4.4 % Normal 3.8-5.6 [facility] Comment on above: Result Comment: Norm al < 5.7 % Prediabetic 5.7 - 6.4 % Diabetic >or= 6.5 % Please note range changes. Performed By: #### L 501.9985, L500.4050, L500.4100, L100.0100, L501.9520 #### [facility] [address] [place], [address] Lipid Profileon 09-27-2023 Cholesterol [Mass/Vol] 132 mg/dL Normal 200 [facility] Comment on above: Result Comment: <200 mg/dL Desirable 200-240 mg/dL Borderline >240 mg/dL High Risk Performed By: #### L 501.9985, L500.4050, L500.4100, L100.0100, L501.9520 #### [facility] [address] [place], [address] Cholesterol in HDL [Mass/Vol] 50 mg/dL Normal [facility] Comment on above: Result Comment: The drugs N-Acetylcysteine and Metamizole may falsely depress this assay. Reference Range HDL <40 mg/dL Low HDL Cholesterol HDL >or= 60 mg/dL High HDL Cholesterol Performed By: #### L 501.9985, L500.4050, L500.4100, L100.0100, L501.9520 #### [facility] [address] [place], [address] Cholesterol in LDL [Mass/Vol] 57 mg/dL Normal 0-130 [facility] Comment on above: Performed By: #### L 501.9985, L500.4050, L500.4100, L100.0100, L501.9520 #### [facility] [address] [place], [address] Cholesterol in VLDL [Mass/Vol] 25 mg/dL Normal 5-40 [facility] Comment on above: Performed By: #### L 501.9985, L500.4050, L500.4100, L100.0100, L501.9520 #### [facility] [address] [place], [address] Triglyceride [Mass/Vol] 125 mg/dL Normal [facility] Comment on above: Result Comment: The drugs N-Acetylcysteine and Metamizole may falsely depress this assay. Serum Triglycerides Reference Interval Normal <150 mg/dL Borderline high 150 - 199 mg/dL High 200 - 499 mg/dL Very High > or = 500 mg/dL Performed By: #### L 501.9985, L500.4050, L500.4100, L100.0100, L501.9520 #### [facility] [address] [place], [address] Thyroid Stim Hormone (TSH)on 09-27-2023 TSH 1.83 uIU/mL Normal 0.358-3.74 [facility] Comment on above: Performed By: #### L 501.9985, L500.4050, L500.4100, L100.0100, L501.9520 #### [facility] [address] [place], [place], [address] Internal Medicine Office Vis iton 09-04-2023 Internal Medicine Office Visit [facility] [address] [place], [place] [address] OFFICE VISIT Date of Service: 09/05/23 MR#: [id number] Acct: [id number] Name: CHRISTA ARREGUIN Rep #: [id number] : 1990 Provider: Dr. Odin salinas MD Age/Sex: 33/F Location: [facility] Status: Signed Intake Vital Signs 02/26/23 13:27 09/05/23 15:05 Height 5 ft 10 in 5 ft 10 in Weight: 172 lb 179 lb BMI 24.7 25.7 BP 114/88 H 112/70 Blood Pressure Location Lt brachial Lt brachial Position Sitting Sitting Respiration 16 14 Pulse 98 108 H Pulse Source Monitor Monitor Temp 98.9 F 98.3 F Temp Source Temporal Temporal Pulse Oximetry (%) 97 99 Oxygen Delivery Method room air room air Intake Visit Reasons: 6 M FU Chief Complaint: 6 M FU Healthcare Sales Representative Required: No Is patient in pain?: No Allergies No Known Allergies Allergy (Verified 09/05/23 15:01) Medications levonorgestrel 21 mcg/24 hours (8 yrs) 52 mg intrauterine device (Mirena) 1 device intrauterine ONCE 02/26/23 [History Confirmed 09/05/23] aluminum chloride 20 % topical solution (Drysol Dab-O-Matic) 1 applic topical 2XW #60 mL 07/29/23 [Rx Confirmed 09/05/23] bupropion HCl 150 mg tablet,12 hr sustained-release (Wellbutrin SR) 150 mg PO BID #180 ea 08/21/23 [Rx Confirmed 09/05/23] mirtazapine 15 mg tablet (Remeron) 15 mg PO DAILY #90 tabs 08/21/23 [Rx Confirmed 09/05/23] quetiapine 100 mg tablet (Seroquel) 100 mg PO QHS #90 tabs 08/21/23 [Rx Confirmed 09/05/23] fexofenadine 180 mg tablet (Carol Allergy) 180 mg PO DAILY PRN 09/05/23 [History] fluticasone propionate 50 mcg/actuation nasal spray,suspension (Flonase Allergy Relief) 1 spray intranasal DAILY PRN 09/05/23 [History] Nurse's Note: Has been having heartburn, states she hasn't tried anything but tums PFSH Medical History Anxiety Asthma Back problem Depression HPV in female Irregular heart beat PTSD (post-traumatic stress disorder) Smoker Substance abuse Surgical History History of removal of cyst Taylor teeth extracted Family History Father Myocardial infarction 70s Hypertension Social History (Updated 09/05/23 @ 15:[address] Odin Abraham MD) household members: other details: sober living current occupational status: employed current occupation: [employer] Smoking Status: Current every day smoker tobacco type: e-cigarettes Electronic Cigarette Use: not used alcohol intake: former details: 2021 substance use type: former substance user Date of last use: 06/28/2021, heroin and opiates do you feel safe at home: Yes HPI HPI Chief Complaint: 6 M FU Details: CHRISTA ARREGUIN, is a 33 F who presents to the office today for a follow up. She is due for some routine blood work and is up to date on her screening. She doesn't want her COVID vaccines. She believes she is up to date on her tetanus booster. She is no longer smoking cigarettes, but has been vaping. She reports she does vape daily and uses about 1 cartridge per month. She does not need refills. She reports she isn't eating as healthy lately, but is trying to stay active at work. She does have a membership with [employer] and plans on getting started there. The patient has a history of drug abuse and was hospitalized last June for withdrawal symptoms. She had been using suboxone, fentanyl, cocaine and xanax. She was treated for her withdrawal symptoms and [facility]. She reports that she did 90 days in the program, transitional housing and is now at the sober living facilities. She is doing well and has been sober since June of 2021. The patient reports she has good support including family and friends. She reports she is still very involved in the program. She completed the vivitrol back in February. She has been doing well without it The patient has had problems with depression and anxiety since she was around [age]. The patient has been on her medications for years. At her last office visit, her wellbutrin was changed to twice daily. She does think that has helped. She denies any thoughts of suicide. Patient has an IUD in place and follows with OBGYN. ROS Const Constitutional: Positive for weight change (weight gain); No body ache, chills, excessive sweating, fatigue, fever(s), frequent falls, headache(s), snoring, weakness, sleep problems or change in appetite Eyes Eyes: No blurry vision, change in vision, eye pain or Light sensitivity ENT ENT: No abnormal hearing, ear or mastoid pain, tinnitus, nasal congestion, headache(s), neck pain or sore throat (resolved) Resp Respiratory: Positive for shortness of breath; No cough, snoring or wheezing Cardio (more content not included)... Normal [facility] STREP A MOLECULAR (POC)on Procedural Control Valid [facility] Strep A (POCT) Negative Negative [facility] COVID NAAT, UPPER RESPIRATOR Y, ROUTINEon 03-27-2023 SARS-CoV-2 (COVID-19) RNA KATELYNN+probe Ql (Resp) Not detected See comment [facility] ROUTINE FLU A/B + RSVon FLUAV RNA KATELYNN+probe Ql (Unsp spec) Not detected Not Detected [facility] FLUBV RNA KATELYNN+probe Ql (Unsp spec) Not detected Not Detected [facility] RSV A RNA KATELYNN+probe Ql (Unsp spec) Not detected Not Detected [facility] HCG QUAL UR B/Oon 01-08-2023 status Negative neg - pos [facility] Quality Check Yes [facility] Absolute lymphocyte countOrd ered By: Dr. Abraham on 08-09-2022 Lymphocytes Auto (Unsp spec) [#/Vol] 1.27 10*3/uL 0.83-4.51 [facility] Basophil percentageOrdered B y: Dr. Abraham on 08-09-2022 Basophils/100 WBC (Bld) 0.5 % 0-1 [facility] Bilirubin [Mass/Vol] 0.70 mg/dL 0.20-1.00 [facility] Comment on above: For patients on eltr ombopag therapy, use of Dimension Fannin TBIL is not recommended. Chloride [Moles/Vol] 107 mmol/L 98-107 [facility] Cholesterol [Mass/Vol] 164 mg/dL <200 [facility] Comment on above: <200 mg/dL Desirable 200-240 mg/dL Borderline >240 mg/dL High Risk Eosinophils/100 WBC (Bld) 0.8 % 0-5 [facility] Glucose [Mass/Vol] 95 mg/dL 74-106 [facility] Neutrophils (Bld) [#/Vol] 5.0 10*3/uL 2.0-7.7 [facility] Neutrophils/100 WBC (Bld) 74.7 % 47-70 [facility] Potassium [Moles/Vol] 3.6 mmol/L 3.5-5.1 [facility] Protein [Mass/Vol] 8.0 g/dL 6.4-8.2 [facility] Sodium [Moles/Vol] 141 mmol/L 136-145 [facility] Triglyceride [Mass/Vol] 136 mg/dL <199 [facility] Comment on above: The drugs N-Acetylcy steine and Metamizole may falsely depress this assay.Serum Triglycerides Reference Interval Normal <150 mg/dL Borderline high 150 - 199 mg/dL High 200 - 499 mg/dL Very High > or = 500 mg/dL WBC (Bld) [#/Vol] 6.7 10*3/uL 4.4-11.0 [facility] Blood erythrocytes count (nu mber/volume)Ordered By: Dr. Abraham on 08-09-2022 RBC (Bld) [#/Vol] 4.46 10*6/uL 4.2-5.4 [facility] Blood hemoglobin measurement (mass/volume)Ordered By: Dr. Abraham on 08-09-2022 Hemoglobin (Bld) [Mass/Vol] 13.7 g/dL 12.0-15.0 [facility] Blood lymphocytes/100 leukoc ytesOrdered By: Dr. Abraham on 08-09-2022 Lymphocytes/100 WBC (Bld) 19.1 % 19-41 [facility] Blood monocytes/100 leukocyt esOrdered By: Dr. Abraham on 08-09-2022 Monocytes/100 WBC (Bld) 4.7 % 0-10 [facility] Blood platelet mean volumeOr dered By: Dr. Abraham on 08-09-2022 Platelet mean volume (Bld) [Entitic vol] 9.4 fL 6.2-12.0 [facility] Determination of erythrocyte mean corpuscular volume (MCV)Ordered By: Dr. Abraham on 08-09-2022 MCV (RBC) [Entitic vol] 91.7 fL 81-99 [facility] HIV 1 and HIV-2 antibody ass ay with HIV-1 p24 antigen detectionOrdered By: Dr. Abraham on 08-09-2022 HIV 1+2 Ab+HIV1 p24 Ag IA Ql Non-Reactive Nonreactive [facility] Hematocrit Auto (Bld) [Volum e fraction]Ordered By: Dr. Abraham on 08-09-2022 Hematocrit (Bld) [Volume fraction] 40.9 % 37-47 [facility] Laboratory - Chemistry and C hemistry - challengeOrdered By: Dr. Abraham on 08-09-2022 ALP [Catalytic activity/Vol] 45 U/L 45-117 [facility] ALT [Catalytic activity/Vol] 17 U/L 13-56 [facility] CO2 [Moles/Vol] 27.0 mmol/L 21.0-32.0 [facility] Globulin (S) [Mass/Vol] 3.6 g/dL 2.2-4.2 [facility] Urea nitrogen/Creatinine [Mass ratio] 11.6 mg/mg 10-20 [facility] Laboratory - Hematology and Cell countsOrdered By: Dr. Abraham on 08-09-2022 Erythrocyte distribution width (RBC) [Entitic vol] 41.6 fL 35.1-43.9 [facility] Erythrocyte distribution width (RBC) [Ratio] 12.6 % 11.6-14.6 [facility] Immature granulocytes/100 WBC (Bld) 0.200 % 0.0-0.9 [facility] Comment on above: IG% - Immature Granu locytes (promyelocytes, myelocytes and metamyelocytes) > 1% indicates that a LEFT SHIFT is Present. MCH (RBC) [Entitic mass] 30.7 pg 27.0-32.0 [facility] Nucleated RBC/100 WBC (Bld) [Ratio] 0 % 0-5 [facility] MCHC Auto (RBC) [Mass/Vol]Or dered By: Dr. Abraham on 08-09-2022 MCHC (RBC) [Mass/Vol] 33.5 g/dL 32-36 [facility] No Panel InformationOrdered By: Dr. Abraham on 08-09-2022 Estimated GFR (MDRD) Amer 98 mL/min >60 [facility] Comment on above: GFR Calc Estimated GFR (MDRD) Non-Af Amer 81 mL/min >60 [facility] Comment on above: Non- GFR Calc Hepatitis A IgM Antibody Negative Negative [facility] Hepatitis B Core IgM Antibody Negative Negative [facility] Hepatitis C Antibody (EIA) Non-Reactive Non Reactive [facility] Hepatitis C Antibody Comment Comment . [facility] Comment on above: Not infected with HC V unless early or acute infection issuspected (which may be delayed in an immunocompromisedindividual), or other evidence exists to indicate HCVinfection.Performed at: - [facility] [id number] [place], [place] [id number] Director: Steve Salas PhD, Phone: [phone] Thyroid Stimulating Hormone (TSH) 1.22 uIU/mL 0.358-3.74 [facility] Platelets bldOrdered By: Dr. Abraham on 08-09-2022 Platelets (Bld) [#/Vol] 255 10*3/uL 150-450 [facility] Serum or plasma albumin bebeto urement (mass/volume)Ordered By: Dr. Abraham on 08-09-2022 Albumin [Mass/Vol] 4.4 g/dL 3.2-5.0 [facility] Serum or plasma albumin/glob ulin mass ratioOrdered By: Dr. Abraham on 08-09-2022 Albumin/Globulin [Mass ratio] 1.2 {ratio} 0.9-2.4 [facility] Serum or plasma calcium bebeto urement (mass/volume)Ordered By: Dr. Abraham on 08-09-2022 Calcium [Mass/Vol] 9.3 mg/dL 8.5-10.1 [facility] Serum or plasma cholesterol in HDL measurement (mass/volume)Ordered By: Dr. Abraham on 08-09-2022 Cholesterol in HDL [Mass/Vol] 62 mg/dL >40 [facility] Comment on above: The drugs N-Acetylcy steine and Metamizole may falsely depress this assay. Reference Range HDL <40 mg/dL Low HDL Cholesterol HDL >or= 60 mg/dL High HDL Cholesterol Serum or plasma cholesterol in VLDL measurement (mass/volume)Ordered By: Dr. Abraham on 08-09-2022 Cholesterol in VLDL [Mass/Vol] 27 mg/dL 5-40 [facility] Serum or plasma creatinine m easurement (mass/volume)Ordered By: Dr. Abraham on 08-09-2022 Creatinine [Mass/Vol] 0.86 mg/dL 0.55-1.02 [facility] Comment on above: The validity of the calculated GFR & GFRAA in patients over 70 years has not been determined. Clinical correlation is essential. Serum or plasma hepatitis B virus surface antigen detection by immunoassayOrdered By: Dr. Abraham on 08-09-2022 HBV surface Ag IA Ql Negative Negative [facility] Serum or plasma low density lipoprotein (LDL) cholesterol measurement (mass/volume)Ordered By: Dr. Abraham on 08-09-2022 Cholesterol in LDL [Mass/Vol] 75 mg/dL 0-130 [facility] Serum or plasma urea nitroge n measurement (mass/volume)Ordered By: Dr. Abraham on 08-09-2022 Urea nitrogen [Mass/Vol] 10 mg/dL 7-18 [facility] Thin prep Papanicolaou smear with manual screeningOrdered By: Dr. Abraham on 08-09-2022 Thin prep Papanicolaou smear with manual screening 9 U/L 15-37 [facility] Thin prep Papanicolaou smear with manual screening 7 5-15 [facility] Whole blood hemoglobin A1c/t otal hemoglobin ratio (mass fraction)Ordered By: Dr. Abraham on 08-09-2022 HbA1c (Bld) [Mass fraction] 4.5 % 3.8-5.6 [facility] Comment on above: Normal < 5.7 % Predi abetic 5.7 - 6.4 % Diabetic >or= 6.5 % Please note range changes. 2019 Novel Coronavirus (CoVI D-19), NAAon 02-29-2020 SARS-CoV-2, KATELYNN Not Detected Normal Not Detected [facility] Comment on above: Result Comment: This nucleic acid amplification test was developed and its performance characteristics determined by [employer]. Nucleic acid amplification tests include PCR and TMA. This test has not been FDA cleared or approved. This test has been authorized by FDA under an Emergency Use Authorization (EUA). This test is only authorized for the duration of time the declaration that circumstances exist justifying the authorization of the emergency use of in vitro diagnostic tests for detection of SARS-CoV-2 virus and/or diagnosis of COVID-19 infection under section 564(b)(1) of the Act, 21 U.S.C. 360bbb-3(b) (1), unless the authorization is terminated or revoked sooner. When diagnostic testing is negative, the possibility of a false negative result should be considered in the context of a patient's recent exposures and the presence of clinical signs and symptoms consistent with COVID-19. An individual without symptoms of COVID-19 and who is not shedding SARS-CoV-2 virus would expect to have a negative (not detected) result in this assay. Performed at: [facility] [address]] [address] [facility] [place] [id number] Acetylene Torch Burner: Hermilo Campos MD, Phone: [phone] Performed By: #### C BC #### [address] [address] CXTHNon 02-18-2020 CXTHN Patient: NEVAEH ARREGUIN [id number] Location: [facility] Aount: [id number] : 1990 Age: 30 Sex F Lab NumbEr [id number] Requested by: PHUONG CROWDER Admitdate: 02/18/20 Source: THR Collected: 02/18/20 18:49 Site: Received : 02/18/20 19:17 Culture, Throat-Strep FINAL 02/20/20 10:32 02/20/[address] GR A: NEGATIVE FOR GROUP A BETA-HEMOLYTIC STREPTOCOCCUS Normal [facility] Comment on above: Performed By: #### C BC #### [address] [address] EMERGENCY DEPARTMENTon 11-24 EMERGENCY DEPARTMENT [address] [id number] HEALTH INFORMATION MANAGEMENT EMERGENCY DEPARTMENT : Signed Patient: NEVAEH ARREGUIN Acct:[id number] MRU N: [id number] : 1990 Sex: F Loc: ED ADM Date: Room/Bed: DISC Date: 11/18/19 History of Present Illness - General Chief complaint: Withdraw Stated complaint: WITHDRAWAL Symptom onset: TODAY HPI: PATIENT STATES SHE USED [facility] THIS MORNING THEN WENT AND GOT A VIVITROL SHOT AND IS NOW EXPERIENCING WITHDRAWAL. No vag bleed/discharge. Denies any travelling history/sick contacts/recent use of antibiotics. No cough/congestion/feve r/chills/rash. No blood in stool/vomit us or urine. NO LOC/Dizziness/Syncope . No headache/neck pain/dyspnea/chest pain or abdominal pain. No speech or vision problems. No numbness/tingling or paresthesia. No unilateral weakness in face or extremities Time Seen by Provider: 11/18/19 14:23 Mode of Transport: Ambulatory - Related Data Home Medications Medication Instructions Recorded Confirmed Medroxyprogesterone Acetate 08/27/18 08/27/18 Naltrexone Microspheres [Vivitrol] 08/27/18 Allergies Allergy/AdvReac Type Severity Reaction Status Date / Time No Known Allergies Allergy Verified 08/27/18 19:50 Review of System - Constitutional Constitutional: Present: Well developed, Well nourished, Non-toxic. Absent: chills, diaphoresis, fever, malaise, weakness, Lethargic - Nose,Throat,Mouth Nose (ROS): Present: no symptoms reported. Absent: pain Throat: Present: no symptoms reported. Absent: pain, swelling, discharge Mouth: Present: no symptoms reported. Absent: pain, swelling - Respiratory Respiratory: Present: no symptoms reported. Absent: cough, short of breath, stridor, wheezing - CV Cardiology: Present: see HPI, palpitations. Absent: chest pain, edema - GI Gastrointestinal/Abdo atif: Present: no symptoms reported. Absent: abdominal pain, diarrhea, nausea, vomiting - Genitourinary Symptoms: Present: no symptoms reported. Absent: dysuria - Neuro Neurological: Present: emotional problems. Absent: headache, numbness, paresthesia, pre-existing deficit, seizure, tingling, weakness, saddle anesthesia - Muskuloskeletal Musculoskeletal: Present: no symptoms reported. Absent: back pain, joint pain, joint swelling, neck pain - Integumentary Skin: Absent: lesions, rash - Allergic/Immunologic Immunological/Allergi c: Present: no symptoms reported - Hematologic Hematologic/Lymphatic : Absent: easy bleeding, easy bruising, swollen glands - Endocrine Endocrine: Present: no symptoms reported - Psychiatric Psychiatric: Present: Normal Affect, Normal Mood. Absent: Depressed, Homicidal Thoughts, Suicidal Plan, Suicidal Thoughts - All Others/Exceptions All Other Systems: Reviewed and Negative Except Where Noted in Documentation ED PMH/Social HX/Family HX - Respiratory Hx Respiratory Disorders: Yes PMH--Respiratory: Asthma - Cardiovascular Hx Cardiac Disorders: No - Neurological Hx Neurological Disorder: No - Endocrine Hx Endocrine Disorders: No - Gastrointestinal Hx Gastrointestinal Disorders: No - Genitourinary Hx Genitourinary Disorders: No - Musculoskeletal Hx Musculoskeletal Disorders: No - Reproductive ?: No - Psychological Hx Psychosocial Problems: Yes PMH--Psychological Treatments: Anxiety, Depression, Panic Disorder - HEENT Hx Ear, Nose Throat Disorders: No - Cancer Hx Cancer: No - Social History Able to Read: Yes Able to Write: Yes Smoking Status: Never Smoked Hx Chewing Tobacco Use: No Alcohol Use: Never Any recreational drug use reported?: Yes ([facility]) Feels Threatened In Home Environment: No Feels Threatened In a Relationship: No Hx Physical Abuse: No Hx Emotional Abuse: No Hx Suspected Abuse: No - [place]/Gender ID What is your current Gender Identity? Choose all that Apply: Female - [place]-Suicide Severity Rating Scale 1) Wish to be :: No 2) Suicidal Thoughts:: No 3) Suicidal Thoughts with Method:: No 4) Suicidal Intent (WITHOUT Specific Plan):: No 5) Suicidal Intent (WITH Specific Plan):: No 6) Suicidal Behavior Question (A): LIFETIME: No 6) Suicidal Behavior Question (B): PAST 3 MONTHS: No Patient Safety Strategies Initiated?: No General Exam - General Limitations: Complains of: no limitations Constitutional: Present: Well developed, Well nourished, well hydrated, Non-toxic. Absent: chills, diaphoresis, fever, malaise, weakness, Lethargic - Head Head exam: Present: atraumatic, normocephalic, normal inspection - Eye Eye exam: Present: normal apperance, normal accomodation, EOMI Pupils: Present: PERRL - ENT ENT exam: Present: normal orophraynx, mucous membranes moist, TMs clear w/ good light reflex, normal external ear exam, No Nasal Discharge, Posterior Pharynx Non-erethemetous - Expanded ENT Exam Ear exam: Present: normal external inspection Mouth exam: Present: normal external inspection Teeth exam: Present: normal inspection Throat exam: normal inspection - Neck Neck exam: Present: full ROM, Supple. Absent: tenderness, meningismus, Posterior Lymphadenopathy, Anterior Lymphadenopathy - Respiratory Respiratory exam: Present: lungs clear and equal bilaterally. Absent: respiratory distress, wheeze s, rales, rhonchi, accessory muscle use - Cardiovascular Cardiovascular Exam: Present: normal rhythm, tachycardia, normal heart sounds. Absent: murmur, rubs, gallop, clicks - GI/Abdominal GI/Abdominal exam: Present: soft, non tender, normal bowel sounds. Absent: guarding, rebound, rigid, mass, bruit - Extremities Exam Extremities exam: Present: normal inspection, neurovascularly intact, full ROM, normal muscle strength, normal/equal pulses, pedal edema. Absent: calf tenderness, tenderness - Back Exam Back exam: Present: normal inspection, full ROM. Absent: tenderness, vertebral tenderness - Neurological Exam Neurological exam: Present: alert, oriented X3, CN II-XII intact, normal gait, other (Speech and grasp are intact. No unilateral weakness in face or extremities noted). Absent: motor sensory deficit - Expanded Neurological Exam Patient oriented to: Present: person, place, time Speech: Present: fluid speech - Psychiatric Psychiatric exam: Present: normal affect, normal mood. Absent: homicidal ideation, suicidal ideation - Skin Skin Color: Present: Normal, [place] Skin exam: Present: warm, dry - Expanded Skin Exam Type of lesion: Absent: rash - Vital Signs Vital Signs 11/18/19 11/18/19 11/18/19 14:20 15:07 16:00 Temperature 97.3 F Pulse Rate [ 119 H 121 H 108 H Pulse Ox] Respiratory 20 17 17 Rate Blood Pressure 128/87 121/86 114/75 [Left Arm Sitting] O2 Sat by Pulse 100 98 100 Oximetry(%) 11/18/19 11/18/19 11/18/19 17:00 18:08 19:02 Temperature Pulse Rate [ 117 H 111 H 114 H Pulse Ox] Respiratory 20 20 20 Rate Blood Pressure 120/71 123/67 123/67 [Left Arm Sitting] O2 Sat by Pulse 98 100 100 Oximetry(%) 11/18/19 11/18/19 20:28 22:05 Temperature Pulse Rate [ 103 H 98 Pulse Ox] Respiratory 20 16 Rate Blood Pressure 124/65 117/30 L [Left Arm Sitting] O2 Sat by Pulse 97 97 Oximetry(%) [facility]icion Making - Lab Data Result diagrams: 11/18/19 14:40 11/18/19 14:40 Lab Results 11/18/19 11/18/19 11/18/19 Range/Units 14:40 14:40 14:40 WBC 6.1 (3.6-10.8) K/uL RBC 3.63 L (3.83-5.19) M/uL Hgb 11.3 (11.1-13.7) g/dL Hct 32.8 L (33.4-46.0) % MCV 90.2 (81.0-99.0) fL MCH 31.1 H (27.0-31.0) pg MCHC 34.5 (33.0-37.0) g/dL RDW 14.3 (11.5-14.5) % Plt Count 217 (148-402) K/uL MPV 7.6 (7.4-10.4) fL Neut % (Auto) 69.3 H (43.0-65.0) % Lymph % (Auto) 21.8 (17.0-45.5) % [place] % (Auto) 7.3 (5.5-11.7) % Eos % (Auto) 1.3 (0.9-2.9) % Baso % (Auto) 0.3 (0.2-1.0) % Absolute Neuts (auto) 4.2 (2.2-4.8) K/uL Absolute Lymphs (auto) 1.3 (1.3-2.9) K/uL Absolute Monos (auto) 0.4 (0.3-0.8) K/uL Absolute Eos (auto) 0.1 (0.0-0.2) K/uL Absolute Basos (auto) 0 (0.0-0.1) K/uL Nucleated RBC % 0 % Nucleated RBCs # 0 K/uL Sodium 142 (132-145) mmol/L Potassium 3.9 (3.3-5.1) mmol/L Chloride 106 (94-110) mmol/L Total Carbon Dioxide 30 (21-34) mmol/L Anion Gap 9.9 (8.0-16.0) mmol/L BUN 8.9 (3.2-26.9) mg/dL Creatinine 0.62 (0.51-0.95) mg/dL Est GFR (MDRD) Af Amer > 60 (>60) Est GFR (MDRD) Non-Af > 60 (>60) BUN/Creatinine Ratio 14 (6-20) Glucose 90 (65-100) mg/dL Specific [place] (1.015-1.025) Calcium 8.6 (8.2-10.0) mg/dL Phosphorus (2.5-4.9) mg/dL Magnesium 1.7 (1.3-2.3) mg/dL Total Bilirubin 0.69 (0.00-0.99) mg/dL AST 24 (3-39) U/L ALT 32 (13-66) U/L Alkaline Phosphatase 44 L (54-112) U/L Troponin I, Quant < 0.017 (0.000-0.056) ng/mL Total Protein 6.8 (6.1-8.2) g/dL Albumin 3.3 L (3.4-5.0) g/dL Globulin 3.5 (1.5-4.5) g/dL Albumin/Globulin Ratio 0.9 L (1.1-2.5) Beta HCG, Quant < 1 mIU/mL Urine Color (Yellow) Urine Appearance (Clear) Urine pH Ur Specific Mclean (1.015-1.025) Urine Protein (Negative) Urine Ketones (Negative) Urine Blood (Negative) Urine Nitrite (Negative) Urine Bilirubin (Negative) Urine Urobilinogen (Normal-1.0) mg/dL Ur Leukocyte Esterase (Negative) Urine Crystals (Auto) Urine RBC (0 - 2) /hpf Urine WBC (0 - 6) /hpf Ur Epithelial Cells (0 - 6) /lpf Urine Glucose (Negative) Salicylates < 2.8 (2.8-20.0) mg/dL Opiates Screen ng/mL Acetaminophen < 2.0 L (10.0-30.0) ug/mL Ur Barbiturates Screen ng/mL Phencyclidine Screen ng/mL Amphetamines Screen ng/mL Benzodiazepines Screen ng/mL Cocaine Screen ng/mL Marijuana (THC) Screen ng/mL Ur Drug Screen Comment Ethyl Alcohol < 3.0 (0.0-0.0) mg/dL 11/18/19 11/18/19 11/18/19 Range/Units 14:40 15:08 15:08 WBC (3.6-10.8) K/uL RBC (3.83-5.19) M/uL Hgb (11.1-13.7) g/dL Hct (33.4-46.0) % MCV (81.0-99.0) fL MCH (27.0-31.0) pg MCHC (33.0-37.0) g/dL RDW (11.5-14.5) % Plt Count (148-402) K/uL MPV (7.4-10.4) fL Neut % (Auto) (43.0-65.0) % Lymph % (Auto) (17.0-45.5) % [place] % (Auto) (5.5-11.7) % Eos % (Auto) (0.9-2.9) % Baso % (Auto) (0.2-1.0) % Absolute Neuts (auto) (2.2-4.8) K/uL Absolute Lymphs (auto) (1.3-2.9) K/uL Absolute Monos (auto) (0.3-0.8) K/uL Absolute Eos (auto) (0.0-0.2) K/uL Absolute Basos (auto) (0.0-0.1) K/uL Nucleated RBC % % Nucleated RBCs # K/uL Sodium (132-145) mmol/L Potassium (3.3-5.1) mmol/L Chloride (94-110) mmol/L Total Carbon Dioxide (21-34) mmol/L Anion Gap (8.0-16.0) mmol/L BUN (3.2-26.9) mg/dL Creatinine (0.51-0.95) mg/dL Est GFR (MDRD) Af Amer (>60) Est GFR (MDRD) Non-Af (>60) BUN/Creatinine Ratio (6-20) Glucose (65-100) mg/dL Specific Mclean 1.010 L (1.015-1.025) Calcium (8.2-10.0) mg/dL Phosphorus 3.4 (2.5-4.9) mg/dL Magnesium (1.3-2.3) mg/dL Total Bilirubin (0.00-0.99) mg/dL AST (3-39) U/L ALT (13-66) U/L Alkaline Phosphatase (54-112) U/L Troponin I, Quant (0.000-0.056) ng/mL Total Protein (6.1-8.2) g/dL Albumin (3.4-5.0) g/dL Globulin (1.5-4.5) g/dL Albumin/Globulin Ratio (1.1-2.5) Beta HCG, Quant mIU/mL Urine Color P. yellow (Yellow) Urine Appearance Clear (Clear) Urine pH 8 8.0 Ur Specific Mclean 1.010 L (1.015-1.025) Urine Protein Negative (Negative) Urine Ketones Negative (Negative) Urine Blood Negative (Negative) Urine Nitrite Negative (Negative) Urine Bilirubin Negative (Negative) Urine Urobilinogen Normal (Normal-1.0) mg/dL Ur Leukocyte Esterase Trace A (Negative) Urine Crystals (Auto) Urine RBC (0 - 2) /hpf Urine WBC (0 - 6) /hpf Ur Epithelial Cells (0 - 6) /lpf Urine Glucose Normal (Negative) Salicylates (2.8-20.0) mg/dL Opiates Screen Negative ng/mL Acetaminophen (10.0-30.0) ug/mL Ur Barbiturates Screen Negative ng/mL Phencyclidine Screen Negative ng/mL Amphetamines Screen Negative ng/mL Benzodiazepines Screen Negative ng/mL Cocaine Screen Negative ng/mL Marijuana (THC) Screen Negative ng/mL Ur Drug Screen Comment - Ethyl Alcohol (0.0-0.0) mg/dL 11/18/19 Range/Units 15:08 WBC (3.6-10.8) K/uL RBC (3.83-5.19) M/uL Hgb (11.1-13.7) g/dL Hct (33.4-46.0) % MCV (81.0-99.0) fL MCH (27.0-31.0) pg MCHC (33.0-37.0) g/dL RDW (11.5-14.5) % Plt Count (148-402) K/uL MPV (7.4-10.4) fL Neut % (Auto) (43.0-65.0) % Lymph % (Auto) (17.0-45.5) % [place] % (Auto) (5.5-11.7) % Eos % (Auto) (0.9-2.9) % Baso % (Auto) (0.2-1.0) % Absolute Neuts (auto) (2.2-4.8) K/uL Absolute Lymphs (auto) (1.3-2.9) K/uL Absolute Monos (auto) (0.3-0.8) K/uL Absolute Eos (auto) (0.0-0.2) K/uL Absolute Basos (auto) (0.0-0.1) K/uL Nucleated RBC % % Nucleated RBCs # K/uL Sodium (132-145) mmol/L Potassium (3.3-5.1) mmol/L Chloride (94-110) mmol/L Total Carbon Dioxide (21-34) mmol/L Anion Gap (8.0-16.0) mmol/L BUN (3.2-26.9) mg/dL Creatinine (0.51-0.95) mg/dL Est GFR (MDRD) Af Amer (>60) Est GFR (MDRD) Non-Af (>60) BUN/Creatinine Ratio (6-20) Glucose (65-100) mg/dL Specific Mclean (1.015-1.025) Calcium (8.2-10.0) mg/dL Phosphorus (2.5-4.9) mg/dL Magnesium (1.3-2.3) mg/dL Total Bilirubin (0.00-0.99) mg/dL AST (3-39) U/L ALT (13-66) U/L Alkaline Phosphatase (54-112) U/L Troponin I, Quant (0.000-0.056) ng/mL Total Protein (6.1-8.2) g/dL Albumin (3.4-5.0) g/dL Globulin (1.5-4.5) g/dL Albumin/Globulin Ratio (1.1-2.5) Beta HCG, Quant mIU/mL Urine Color (Yellow) Urine Appearance (Clear) Urine pH Ur Specific Mclean (1.015-1.025) Urine Protein (Negative) Urine Ketones (Negative) Urine Blood (Negative) Urine Nitrite (Negative) Urine Bilirubin (Negative) Urine Urobilinogen (Normal-1.0) mg/dL Ur Leukocyte Esterase (Negative) Urine Crystals (Auto) Rare amorphous Urine RBC None seen (0 - 2) /hpf Urine WBC 0-2 (0 - 6) /hpf Ur Epithelial Cells 0-2 (0 - 6) /lpf Urine Glucose (Negative) Salicylates (2.8-20.0) mg/dL Opiates Screen ng/mL Acetaminophen (10.0-30.0) ug/mL Ur Barbiturates Screen ng/mL Phencyclidine Screen ng/mL Amphetamines Screen ng/mL Benzodiazepines Screen ng/mL Cocaine Screen ng/mL Marijuana (THC) Screen ng/mL Ur Drug Screen Comment Ethyl Alcohol (0.0-0.0) mg/dL Orders: Medications Discontinued Medications Sodium Chloride (Sodium Chloride 0.9 % 1000 Ml) 1,000 mls @ 999 mls/hr IV .Q1H1M ONE Stop: 11/18/19 15:39 Last Infusion: 11/18/19 16:19 Dose: 0 mls/hr Documented by: [email or web address] Sodium Chloride (Sodium Chloride 0.9 % 1000 Ml) 1,000 mls @ 999 mls/hr IV .Q1H1M ONE Stop: 11/18/19 17:06 Last Infusion: 11/18/19 16:58 Dose: 0 mls/hr Documented by: [email or web address] Lorazepam (Ativan 2 Mg/Ml Injection) 1 mg IVP STAT STA Stop: 11/18/19 15:09 Last Admin: 11/18/19 15:18 Dose: 1 mg Documented by: [email or web address] Lorazepam (Ativan 2 Mg/Ml Injection) 1 mg IVP STAT STA Stop: 11/18/19 16:20 Last Admin: 11/18/19 16:35 Dose: 1 mg Documented by: [email or web address] - Radiology Data Radiology Report: Radiology report reviewed,see report for findings IMPRESSIONS Electrocardiogram 11/18/19 14:38 [facility] ED Test Date: 2019-11-18 Test Time: 17:12:16 Pat Name: NEVAEH ARREGUIN Department: Room: Gender: F [employer]: DWAINE : 1990 Requested By: BRIDGETT JOE Order Number: [id number] Reading MD: BRIDGETT JOE Measurements Intervals [place] Rate: 110 P: 72 TN: 133 QRS: 81 QRSD: 80 T: -1 QT: 343 QTc: 465 Interpretive Statements Sinus tachycardia Probable left atrial enlargement Borderline T abnormalities, inferior leads No previous ECG available for comparison Electronically Signed On 11-18-2019 19:07:58 EDT by BRIDGETT JOE Chest X-Ray 11/18/19 16:17 IMPRESSION: No acute process. Electrocardiogram 11/18/19 17:09 [facility] ED Test Date: 2019-11-18 Test Time: 14:27:48 Pat Name: NEVAEH ARREGUIN Department: Room: Gender: F [employer]: DWAINE : 1990 Requested By: BRIDGETT JOE Order Number: [id number] Jeanne MD: Measurements Intervals [place] Rate: 105 P: 71 TN: 137 QRS: 78 QRSD: 88 T: 1 QT: 347 QTc: 459 Interpretive Statements Sinus tachycardia Probable left atrial enlargement No previous ECG available for comparison - Medical Decision Making Patient was tachycardic upon arrival to the emergency room. She denied any suicidal or homicidal ideation EKG showed sinus tachycardia, normal TN, QTc was 452 Consulted poison control who recommended monitoring the QTc interval for prolongation and to check electrolytes and treat the patient supportively with IV fluids and IV Ativan as needed Patient was given couple of liters of normal sent IV fluids and couple of liters of Ativan 1 mg IV in the emergency room Repeat EKG showed sinus tachycardia, QTc interval was prolonged to 465. Patient's electrolytes are grossly unremarkable Again patient denies any suicidal or homicidal ideations. But she needs to be admitted and monitored for her sinus tachycardia and QTc interval. We do not have admission beds available at [facility] hence patient be transferred to [facility] for admission, supportive treatment and for cardiology consult Patient accepted at [facility]. Please see transfer record for further details Patient speech and grasp are intact. No acute neurovascular deficits noted. Patient states understanding of transfer to [facility] and agrees with management and plan - Differential Diagnosis Differential Diagnosis: Drug withdrawal/medication side effect/anxiety/arrhyt hmia/panic disorder/electrolyte abnormalities Critical Care Time - Critical Care Time Critical Care Provided: Yes CC time not at bedside: Discussion with consults, Obtaining information from family/friends/EMS, Review nursing notes and old records, Determining code status, Reviewing diagnostic tests Total Critical Care Time: 45 Critical Care Note: (Management of tachycardia, IV fluids management, discussion with poison control, discussion with hand binder stripper, arranging transfer of patient to tertiary care facility) 45 minutes total critical care time ED Discharge Summary - Discharge Data Clinical Impression: Abnormal EKG, Drug side effects, Tachycardia Condition: Fair Disposition: 02 XFER SHT-TRM HOSP Referrals: GEORGI GILLETTE [Primary Care Provider] - Home Medications: Ambulatory Orders Medication Instructions Recorded Medroxyprogesterone Acetate 08/27/18 Naltrexone Microspheres [Vivitrol] 08/27/18 Home medications and allergies reviewed: Yes Time Seen by Provider: 11/18/19 14:23 - Consultation Nurses Notes Reviewed and Agreed With?: Yes - Dictation Amendments/Documentat ion: [employer] Document Only Electronically Generated By: BRIDGETT JOE MD Generated Date/Time: 11/18/19 1557 Electronically Signed By: BRIDGETT JEO MD Signed Date/Time 11/25/19 1827 Co Signed Electronically By: Co Signed Date/Time: CC: GEORGI GILLETTE Normal [facility] .GFRon 11-21-2019 GFR Non- >60 Normal [facility] ([place]) Comment on above: Result Comment: GFR Population mean for , Non- Americans Ages 20-29 = 116 mL/min/1.73 sq.m. Ages 30-39 = 107 mL/min/1.73 sq.m. Ages 40-49 = 99 mL/min/1.73 sq.m. Ages 50-59 = 93 mL/min/1.73 sq.m. Ages 60-69 = 85 mL/min/1.73 sq.m. Ages 70+ = 75 mL/min/1.73 sq.m. Chronic Kidney Disease: Less than 60 mL/min/1.73 square meters End Stage Renal Disease: Less than 15 mL/min/1.73 square meters Performed By: #### T KHAI #### [place] [address] GFR >60 Normal [facility] ([place]) Comment on above: Result Comment: GFR Population mean for , Non- Americans Ages 20-29 = 116 mL/min/1.73 sq.m. Ages 30-39 = 107 mL/min/1.73 sq.m. Ages 40-49 = 99 mL/min/1.73 sq.m. Ages 50-59 = 93 mL/min/1.73 sq.m. Ages 60-69 = 85 mL/min/1.73 sq.m. Ages 70+ = 75 mL/min/1.73 sq.m. Chronic Kidney Disease: Less than 60 mL/min/1.73 square meters End Stage Renal Disease: Less than 15 mL/min/1.73 square meters Performed By: #### T KHAI #### [address] [address] [facility] 11-21-2019 Creatinine [Mass/Vol] 0.68 mg/dL Normal 0.50-1.20 [facility] ([place]) Comment on above: Performed By: #### T KHAI #### [address] [address] Urea nitrogen/Creatinine [Mass ratio] 13.2 ratio Normal 10.0-22.0 [facility] ([place]) Comment on above: Performed By: #### T KHAI #### [address] [address] Calcium [Mass/Vol] 9.3 mg/dL Normal 8.4-10.1 [facility] ([place]) Comment on above: Performed By: #### T KHAI #### [address] [address] Chloride [Moles/Vol] 114 mmol/L High 98-110 [facility] ([place]) Comment on above: Performed By: #### T ORTIZI #### [address] [address] CO2 [Moles/Vol] 23 mmol/L Normal 22-32 [facility] ([place]) Comment on above: Performed By: #### T ORTIZI #### [address] [address] Electrolyte Balance 8.0 mEq/L Normal 4.0-15.0 [facility] ([place]) Comment on above: Performed By: #### T KHAI #### [address] [address] Glucose [Mass/Vol] 95 mg/dL Normal 70-110 [facility] ([place]) Comment on above: Performed By: #### T ROPI #### [place] [id number] Potassium [Moles/Vol] 3.2 mmol/L Low 3.5-5.0 [facility] ([place]) Comment on above: Performed By: #### T ROPI #### [place] [id number] Sodium [Moles/Vol] 145 mmol/L Normal 136-145 [facility] ([place]) Comment on above: Performed By: #### T ORTIZI #### [place] [id number] Urea nitrogen [Mass/Vol] 9.0 mg/dL Normal 8.0-22.0 [facility] ([place]) Comment on above: Performed By: #### T ORTIZI #### [place] [address] .Auto Diffon 11-20-2019 Ammonia (P) [Mass/Vol] 0.40 10 3/mcL Normal 0.09-1.40 [facility] ([place]) Comment on above: Performed By: #### T ROPI #### [address] [address] Basophils (Bld) [#/Vol] 0.00 10 3/mcL Normal 0.00-0.27 [facility] ([place]) Comment on above: Performed By: #### T ROPI #### [address] [address] Basophils/100 WBC (Bld) 0.2 % Normal 0.0-2.5 [facility] ([place]) Comment on above: Performed By: #### T ROPI #### [address] [address] Eosinophils (Bld) [#/Vol] 0.00 10 3/mcL Normal 0.00-0.65 [facility] ([place]) Comment on above: Performed By: #### T ROPI #### [address] [address] Eosinophils/100 WBC (Bld) 0.4 % Normal 0.0-6.0 [facility] ([place]) Comment on above: Performed By: #### T ROPI #### [address] [address] Lymphocytes (Bld) [#/Vol] 1.20 10 3/mcL Normal 0.90-4.32 [facility] ([place]) Comment on above: Performed By: #### T ROPI #### [address] [address] Lymphocytes/100 WBC (Bld) 21.0 % Normal 20.0-40.0 [facility] ([place]) Comment on above: Performed By: #### T ROPI #### [address] [address] Monocytes/100 WBC (Bld) 6.7 % Normal 2.0-13.0 [facility] ([place]) Comment on above: Performed By: #### T ROPI #### [address] [address] Neutrophils/100 WBC (Bld) 71.7 % Normal 50.0-75.0 [facility] ([place]) Comment on above: Performed By: #### T ROPI #### [address] [address] .GFRon 11-20-2019 GFR >60 Normal [facility] ([place]) Comment on above: Result Comment: GFR Population mean for , Non- Americans Ages 20-29 = 116 mL/min/1.73 sq.m. Ages 30-39 = 107 mL/min/1.73 sq.m. Ages 40-49 = 99 mL/min/1.73 sq.m. Ages 50-59 = 93 mL/min/1.73 sq.m. Ages 60-69 = 85 mL/min/1.73 sq.m. Ages 70+ = 75 mL/min/1.73 sq.m. Chronic Kidney Disease: Less than 60 mL/min/1.73 square meters End Stage Renal Disease: Less than 15 mL/min/1.73 square meters Performed By: #### T ORTIZI #### [place] [id number] GFR Non- >60 Normal [facility] ([place]) Comment on above: Result Comment: GFR Population mean for , Non- Americans Ages 20-29 = 116 mL/min/1.73 sq.m. Ages 30-39 = 107 mL/min/1.73 sq.m. Ages 40-49 = 99 mL/min/1.73 sq.m. Ages 50-59 = 93 mL/min/1.73 sq.m. Ages 60-69 = 85 mL/min/1.73 sq.m. Ages 70+ = 75 mL/min/1.73 sq.m. Chronic Kidney Disease: Less than 60 mL/min/1.73 square meters End Stage Renal Disease: Less than 15 mL/min/1.73 square meters Performed By: #### T KHAI #### [place] [address] .NEUABSon 11-20-2019 Neutrophils (Bld) [#/Vol] 3.90 10 3/mcL Normal 2.25-8.10 [facility] ([place]) Comment on above: Performed By: #### T KHAI #### [place] [id number] CBCon 11-20-2019 Erythrocyte distribution width (RBC) [Ratio] 13.7 % Normal 11.5-15.5 [facility] ([place]) Comment on above: Performed By: #### T ORTIZI #### [place] [id number] Hematocrit (Bld) [Volume fraction] 34.4 % Normal 34.0-46.0 [facility] ([place]) Comment on above: Performed By: #### T ORTIZI #### [place] [id number] Hemoglobin (Bld) [Mass/Vol] 12.1 G/dL Normal 12.0-16.0 [facility] ([place]) Comment on above: Performed By: #### T KHAI #### [place] [id number] MCH (RBC) [Entitic mass] 31.1 pg Normal 27.0-33.0 [facility] ([place]) Comment on above: Performed By: #### T KHAI #### [address] [address] MCHC (RBC) [Mass/Vol] 35.1 G/dL Normal 32.0-36.0 [facility] ([place]) Comment on above: Performed By: #### T KHAI #### [place] [id number] MCV (RBC) [Entitic vol] 88.5 fL Normal 80.0-99.0 [facility] ([place]) Comment on above: Performed By: #### T KHAI #### [place] [id number] Platelet mean volume (Bld) [Entitic vol] 7.3 fL Normal 6.6-10.5 [facility] ([place]) Comment on above: Performed By: #### Ilda RIDLEY #### [place] [id number] Platelets (Bld) [#/Vol] 252 10 3/mcL Normal 150-450 [facility] ([place]) Comment on above: Performed By: #### T KHAI #### [place] [id number] RBC (Bld) [#/Vol] 3.89 10 6/mcL Low 4.10-5.30 [facility] ([place]) Comment on above: Performed By: #### Ilda RIDLEY #### [place] [id number] WBC (Bld) [#/Vol] 5.50 10 3/mcL Normal 4.50-10.80 [facility] ([place]) Comment on above: Performed By: #### T KHAI #### [address] [address] CMPon 11-20-2019 Albumin/Globulin [Mass ratio] 1.1 {ratio} Normal 0.9-1.6 [facility] ([place]) Comment on above: Performed By: #### T ROPI #### [address] [address] ALP [Catalytic activity/Vol] 42 U/L Normal 38-126 [facility] ([place]) Comment on above: Performed By: #### T ROPI #### [address] [address] ALT [Catalytic activity/Vol] 23 U/L Normal 10-49 [facility] ([place]) Comment on above: Performed By: #### T ROPI #### [address] [address] Bili Total 1.0 mg/dL Normal 0.2-1.2 [facility] ([place]) Comment on above: Result Comment: Use of this assay is not recommended for patients undergoing treatment with eltrombopag due to the potential for falsely elevated results. Performed By: #### T ORTIZI #### [place] [id number] Creatinine [Mass/Vol] 0.58 mg/dL Normal 0.50-1.20 [facility] ([place]) Comment on above: Performed By: #### T ROPI #### [address] [address] Globulin (S) [Mass/Vol] 3.2 G/dL Normal 1.5-3.8 [facility] ([place]) Comment on above: Performed By: #### T ROPI #### [address] [address] Protein [Mass/Vol] 6.6 G/dL Normal 6.0-8.5 [facility] ([place]) Comment on above: Performed By: #### T ROPI #### [address] [address] Urea nitrogen/Creatinine [Mass ratio] 15.5 ratio Normal 10.0-22.0 [facility] ([place]) Comment on above: Performed By: #### T ROPI #### [address] [address] Albumin [Mass/Vol] 3.4 G/dL Normal 3.2-4.8 [facility] ([place]) Comment on above: Performed By: #### T ROPI #### [address] [address] AST [Catalytic activity/Vol] 15 U/L Normal 8-34 [facility] ([place]) Comment on above: Performed By: #### T ROPI #### [address] [address] Calcium [Mass/Vol] 8.8 mg/dL Normal 8.4-10.1 [facility] ([place]) Comment on above: Performed By: #### T ROPI #### [address] [address] Chloride [Moles/Vol] 113 mmol/L High 98-110 [facility] ([place]) Comment on above: Performed By: #### T ROPI #### [address] [address] CO2 [Moles/Vol] 20 mmol/L Low 22-32 [facility] ([place]) Comment on above: Performed By: #### T ROPI #### [address] [address] Electrolyte Balance 8.0 mEq/L Normal 4.0-15.0 [facility] ([place]) Comment on above: Performed By: #### T ROPI #### [address] [address] Glucose [Mass/Vol] 89 mg/dL Normal 70-110 [facility] ([place]) Comment on above: Performed By: #### T ROPI #### [address] [address] Potassium [Moles/Vol] 3.6 mmol/L Normal 3.5-5.0 [facility] ([place]) Comment on above: Performed By: #### T ROPI #### [address] [address] Sodium [Moles/Vol] 141 mmol/L Normal 136-145 [facility] ([place]) Comment on above: Performed By: #### T ROPI #### [address] [address] Urea nitrogen [Mass/Vol] 9.0 mg/dL Normal 8.0-22.0 [facility] ([place]) Comment on above: Performed By: #### T ORTIZI #### [place] [id number] DRUGUon 11-20-2019 Drug Screen Urine Negative Normal [facility] ([place]) Comment on above: Performed By: #### T ORTIZI #### [place] [address] Drug Screen Urine Interp Urine shows no evidence of drugs routinely screened. [facility] ([place]) Comment on above: Performed By: #### T ORTIZI #### [place] [id number] U pH Drug Scrn 7.0 Normal 5.0-8.0 [facility] ([place]) Comment on above: Performed By: #### T ORTIZI #### [place] [address] U Specific Mclean Drg Scrn 1.012 Normal 1.005-1.030 [facility] ([place]) Comment on above: Performed By: #### T KHAI #### [place] [address] Urine Drugs screened: See Below Normal [facility] ([place]) Comment on above: Result Comment: This drug screen is a presumptive screening only. No confirmation will be performed unless requested. Drugs screened include: Threshold Amphetamines/Methamphetamines 1,000 ng/mL Barbiturates 200 ng/mL Benzodiazepine metabolites 200 ng/mL Cannabinoids (THC metabolites) 50 ng/mL Benzoylecognine (Cocaine metab) 300 ng/mL Opiates 300 ng/mL Phencyclidine (PCP) 25 ng/mL Methadone 300 ng/mL Propoxyphene 300 ng/mL Testing has been performed FOR MEDICAL PURPOSES ONLY. Performed By: #### T KHAI #### [address] [address] MGon 11-20-2019 Magnesium [Mass/Vol] 2.0 mg/dL Normal 1.6-2.4 [facility] ([place]) Comment on above: Performed By: #### T ORTIZI #### [place] [address] .Auto Diffon 11-19-2019 Ammonia (P) [Mass/Vol] 0.20 10 3/mcL Normal 0.09-1.40 [facility] ([place]) Comment on above: Performed By: #### C BC, ADIFF, ANEU, DRUGS #### [address] [address] Basophils (Bld) [#/Vol] 0.00 10 3/mcL Normal 0.00-0.27 [facility] ([place]) Comment on above: Performed By: #### C BC, ADIFF, ANEU, DRUGS #### [address] [address] Basophils/100 WBC (Bld) 0.1 % Normal 0.0-2.5 [facility] ([place]) Comment on above: Performed By: #### C BC, ADIFF, ANEU, DRUGS #### [address] [address] Eosinophils (Bld) [#/Vol] 0.00 10 3/mcL Normal 0.00-0.65 [facility] ([place]) Comment on above: Performed By: #### C BC, ADIFF, ANEU, DRUGS #### [address] [address] Eosinophils/100 WBC (Bld) 0.1 % Normal 0.0-6.0 [facility] ([place]) Comment on above: Performed By: #### C BC, ADIFF, ANEU, DRUGS #### [address] [address] Lymphocytes (Bld) [#/Vol] 0.80 10 3/mcL Low 0.90-4.32 [facility] ([place]) Comment on above: Performed By: #### C BC, ADIFF, ANEU, DRUGS #### [address] [address] Lymphocytes/100 WBC (Bld) 16.0 % Low 20.0-40.0 [facility] ([place]) Comment on above: Performed By: #### C BC, ADIFF, ANEU, DRUGS #### [address] [address] Monocytes/100 WBC (Bld) 4.5 % Normal 2.0-13.0 [facility] ([place]) Comment on above: Performed By: #### C BCMARICRUZ, ANEU, DRUGS #### [address] [address] Neutrophils/100 WBC (Bld) 79.3 % High 50.0-75.0 [facility] ([place]) Comment on above: Performed By: #### C BCMARICRUZ, ANEU, DRUGS #### [address] [address] .GFRon 11-19-2019 GFR >60 Normal [facility] ([place]) Comment on above: Result Comment: GFR Population mean for , Non- Americans Ages 20-29 = 116 mL/min/1.73 sq.m. Ages 30-39 = 107 mL/min/1.73 sq.m. Ages 40-49 = 99 mL/min/1.73 sq.m. Ages 50-59 = 93 mL/min/1.73 sq.m. Ages 60-69 = 85 mL/min/1.73 sq.m. Ages 70+ = 75 mL/min/1.73 sq.m. Chronic Kidney Disease: Less than 60 mL/min/1.73 square meters End Stage Renal Disease: Less than 15 mL/min/1.73 square meters Performed By: #### T KHAI #### [address] [address] GFR Non- >60 Normal [facility] ([place]) Comment on above: Result Comment: GFR Population mean for , Non- Americans Ages 20-29 = 116 mL/min/1.73 sq.m. Ages 30-39 = 107 mL/min/1.73 sq.m. Ages 40-49 = 99 mL/min/1.73 sq.m. Ages 50-59 = 93 mL/min/1.73 sq.m. Ages 60-69 = 85 mL/min/1.73 sq.m. Ages 70+ = 75 mL/min/1.73 sq.m. Chronic Kidney Disease: Less than 60 mL/min/1.73 square meters End Stage Renal Disease: Less than 15 mL/min/1.73 square meters Performed By: #### T ROPI #### [address] [address] .NEUABSon 11-19-2019 Neutrophils (Bld) [#/Vol] 4.20 10 3/mcL Normal 2.25-8.10 [facility] ([place]) Comment on above: Performed By: #### C BC, ADIFF, ANEU, DRUGS #### [address] [address] BMPon 11-19-2019 Creatinine [Mass/Vol] 0.55 mg/dL Normal 0.50-1.20 [facility] ([place]) Comment on above: Performed By: #### B MP, TSH, GFR #### [place] [address] Urea nitrogen/Creatinine [Mass ratio] 14.5 ratio Normal 10.0-22.0 [facility] ([place]) Comment on above: Performed By: #### B MP, TSH, GFR #### [place] [id number] Calcium [Mass/Vol] 8.7 mg/dL Normal 8.4-10.1 [facility] ([place]) Comment on above: Performed By: #### B MP, TSH, GFR #### [place] [id number] Chloride [Moles/Vol] 112 mmol/L High 98-110 [facility] ([place]) Comment on above: Performed By: #### B MP, TSH, GFR #### [place] [id number] CO2 [Moles/Vol] 22 mmol/L Normal 22-32 [facility] ([place]) Comment on above: Performed By: #### B MP, TSH, GFR #### [place] [id number] Electrolyte Balance 8.0 mEq/L Normal 4.0-15.0 [facility] ([place]) Comment on above: Performed By: #### B MP, TSH, GFR #### [place] [id number] Glucose [Mass/Vol] 94 mg/dL Normal 70-110 [facility] ([place]) Comment on above: Performed By: #### B MP, TSH, GFR #### [address] [address] Potassium [Moles/Vol] 3.4 mmol/L Low 3.5-5.0 [facility] ([place]) Comment on above: Performed By: #### B MP, TSH, GFR #### [address] [address] Sodium [Moles/Vol] 142 mmol/L Normal 136-145 [facility] ([place]) Comment on above: Performed By: #### B MP, TSH, GFR #### [address] [address] Urea nitrogen [Mass/Vol] 8.0 mg/dL Normal 8.0-22.0 [facility] ([place]) Comment on above: Performed By: #### B MP, TSH, GFR #### [address] [address] CBCon 11-19-2019 Erythrocyte distribution width (RBC) [Ratio] 14.0 % Normal 11.5-15.5 [facility] ([place]) Comment on above: Performed By: #### C MARICRUZ SUAREZ ANEU, DRUGS #### [address] [address] Hematocrit (Bld) [Volume fraction] 34.9 % Normal 34.0-46.0 [facility] ([place]) Comment on above: Performed By: #### C BC, MARICRUZ ANEU, DRUGS #### [address] [address] Hemoglobin (Bld) [Mass/Vol] 12.1 G/dL Normal 12.0-16.0 [facility] ([place]) Comment on above: Performed By: #### C BC, MARICRUZ ANEU, DRUGS #### [address] [address] MCH (RBC) [Entitic mass] 31.1 pg Normal 27.0-33.0 [facility] ([place]) Comment on above: Performed By: #### C BC, ADIFF, ANEU, DRUGS #### [address] [address] MCHC (RBC) [Mass/Vol] 34.6 G/dL Normal 32.0-36.0 [facility] ([place]) Comment on above: Performed By: #### C BC, ADIFF, ANEU, DRUGS #### [place] [id number] MCV (RBC) [Entitic vol] 89.7 fL Normal 80.0-99.0 [facility] ([place]) Comment on above: Performed By: #### C BC, ADIFF, ANEU, DRUGS #### [address] [address] Platelet mean volume (Bld) [Entitic vol] 7.2 fL Normal 6.6-10.5 [facility] ([place]) Comment on above: Performed By: #### C BC, ADIFF, ANEU, DRUGS #### [place] [id number] Platelets (Bld) [#/Vol] 249 10 3/mcL Normal 150-450 [facility] ([place]) Comment on above: Performed By: #### C BC, ADIFF, ANEU, DRUGS #### [address] [address] RBC (Bld) [#/Vol] 3.89 10 6/mcL Low 4.10-5.30 [facility] ([place]) Comment on above: Performed By: #### C BC, ADIFF, ANEU, DRUGS #### [place] [id number] WBC (Bld) [#/Vol] 5.30 10 3/mcL Normal 4.50-10.80 [facility] ([place]) Comment on above: Performed By: #### C BC, ADIFF, ANEU, DRUGS #### [place] [address] DIMERon 11-19-2019 Fibrin D-dimer FEU IA (Bld) [Mass/Vol] 208 ng/mL D-DU Normal 0-230 [facility] ([place]) Comment on above: Result Comment: Resu lts reported in D-DU ng/ml. Negative for D-dimer. DVT/PE is highly unlikely. Note: False negative results may be seen in patients on anticoagulant therapy. The result of the D-Dimer test should be evaluated in the context of all the clinical and laboratory data available. In those instances where the laboratory result does not agree with the clinical evaluation, additional tests should be performed accordingly. Performed By: #### D STEPHANIE #### [place] [address] DRUGSon 11-19-2019 Acetaminophen [Mass/Vol] <2.0 Low 10.0-30.0 [facility] ([place]) Comment on above: Performed By: #### C BC, ADIFF, ANEU, DRUGS #### [place] [address] Drug Screen (s) Negative Normal Negative [facility] ([place]) Comment on above: Performed By: #### C BC, ADIFF, ANEU, DRUGS #### [place] [address] Drug Screen Interp Serum shows no evidence of drugs routinely screened [facility] ([place]) Comment on above: Performed By: #### C BC, ADIFF, ANEU, DRUGS #### [place] [address] Ethanol Level <10.0 Normal [facility] ([place]) Comment on above: Performed By: #### C BC, ADIFF, ANEU, DRUGS #### [place] [address] Salicylate Lvl (ds) <2.0 Low 10.0-25.0 [facility] ([place]) Comment on above: Performed By: #### C BC, ADIFF, ANEU, DRUGS #### [place] [address] Serum Drugs screened: See Below Normal [facility] ([place]) Comment on above: Result Comment: This drug screen is a presumptive screening only. No confirmation will be performed unless requested. Drugs included in the ER serum drug screen are: Threshold Ethanol 10.0 mg/dL Salicylate 2.0 mg/dl Acetaminophen 2.0 mcg/mL Tricyclic Antidepressants 300 ng/mL Testing has been performed FOR MEDICAL PURPOSES ONLY. Performed By: #### C BC, ADSHAJI, ANEU, DRUGS #### [address] [address] TCA (s) Negative Normal [facility] ([place]) Comment on above: Performed By: #### C BC, ADIFF, ANEU, DRUGS #### [address] [address] FT4on 11-19-2019 Free T4 [Mass/Vol] 1.03 ng/dL Normal 0.60-1.70 [facility] ([place]) Comment on above: Performed By: #### T ORTIZI #### [address] [address] TROPIon 11-19-2019 Troponin I.cardiac [Mass/Vol] ng/mL Normal 0.000-0.040 [facility] ([place]) Comment on above: Result Comment: Trop onin I reference ranges (01/25/14): 0.00-0.040 ng/mL Negative and non-diagnostic. >0.040 ng/mL Consistent with cardiac damage, increased clinical risk and possibility of myocardial infarction. Serial measurements, a rise & fall in test results, clinical history, appropriate symptoms and/or ECG changes may help assess possibility of NE. *Other non-acute coronary syndrome conditions such as CHF, myocarditis, pulmonary emboli, sepsis and cardiac surgery could result in myocardial damage and increased troponin levels. Performed By: #### T ROPI #### [address] [address] Troponin I.cardiac [Mass/Vol] ng/mL Normal 0.000-0.040 [facility] ([place]) Comment on above: Result Comment: Trop onin I reference ranges (01/25/14): 0.00-0.040 ng/mL Negative and non-diagnostic. >0.040 ng/mL Consistent with cardiac damage, increased clinical risk and possibility of myocardial infarction. Serial measurements, a rise & fall in test results, clinical history, appropriate symptoms and/or ECG changes may help assess possibility of NE. *Other non-acute coronary syndrome conditions such as CHF, myocarditis, pulmonary emboli, sepsis and cardiac surgery could result in myocardial damage and increased troponin levels. Performed By: #### T ROPI #### [address] [address] Troponin I.cardiac [Mass/Vol] ng/mL Normal 0.000-0.040 [facility] ([place]) Comment on above: Result Comment: Trop onin I reference ranges (01/25/14): 0.00-0.040 ng/mL Negative and non-diagnostic. >0.040 ng/mL Consistent with cardiac damage, increased clinical risk and possibility of myocardial infarction. Serial measurements, a rise & fall in test results, clinical history, appropriate symptoms and/or ECG changes may help assess possibility of NE. *Other non-acute coronary syndrome conditions such as CHF, myocarditis, pulmonary emboli, sepsis and cardiac surgery could result in myocardial damage and increased troponin levels. Performed By: #### T KHAI #### [address] [address] TSHon 11-19-2019 TSH Qn 0.150 mcIU/mL Low 0.360-3.740 [facility] ([place]) Comment on above: Performed By: #### T KHAI #### [address] [address] XR CHEST 1 VIEWon 11-19-2019 XR CHEST 1 VIEW ORIGINAL History: shortness of breath Technique: Portable AP chest radiograph Comparison: None available Findings/Impression: No focal lung consolidation. No pneumothorax or pleural effusion. Cardiomediastinal silhouette is normal. Interpreted By: Saad Schofield Preliminary Report By: Saad Schofield Electronically Signed By: Saad Schofield Dictated Date: 11/19/2019 3:24:34 PM Prelim Date: 11/19/2019 3:24:34 PM Sign Date: 11/19/2019 3:25:16 PM Ordering Provider:Jonnathan Johnson [facility] ([place]) Acetm Level W/ doseon 2019 Acetaminophen [Mass/Vol] <2.0 Low 10.0-30.0 [facility] Comment on above: Performed By: #### A CETM #### [facility] [address] [place] [address] CBC w/Auto Differentialon Anemia BILLING REPRESENTATIVE Normal [facility] Comment on above: Performed By: #### C BC #### [facility] [employer] [facility] [address] [place] [address] Anisocytosis Ql (Bld) BILLING REPRESENTATIVE Normal [facility] Comment on above: Performed By: #### C BC #### [facility] [address] [place] [address] Basophils Abs. # 0.0 K/uL Normal 0.0-0.1 [facility] Comment on above: Performed By: #### C BC #### [facility] [address] [place] [address] Basophils/100 WBC (Bld) 0.3 % Normal 0.2-1.0 [facility] Comment on above: Performed By: #### C BC #### [facility] [address] [place] [address] Basophils/100 WBC (Bld) BILLING REPRESENTATIVE Normal [facility] Comment on above: Performed By: #### C BC #### [facility] [employer] [facility] [address] [place] [address] Bosophillia # BILLING REPRESENTATIVE Normal [facility] Comment on above: Performed By: #### C BC #### [facility] [employer] [facility] [address] [place] [address] Eosinophils (Bld) [#/Vol] BILLING REPRESENTATIVE Normal [facility] Comment on above: Performed By: #### C BC #### [facility] [employer] [facility] [address] [facility] [place] [address] Eosinophils (Bld) [#/Vol] 0.1 10*3/uL Normal 0.0-0.2 [facility] Comment on above: Performed By: #### C BC #### [facility] [address] [facility] [place] [address] Eosinophils/100 WBC (Bld) BILLING REPRESENTATIVE Normal [facility] Comment on above: Performed By: #### C BC #### [facility] [address] [facility] [place] [address] Eosinophils/100 WBC (Bld) 1.3 % Normal 0.9-2.9 [facility] Comment on above: Performed By: #### C BC #### [facility] [address] [facility] [place] [address] Erythocytosis BILLING REPRESENTATIVE Normal [facility] Comment on above: Performed By: #### C BC #### [facility] [address] [place] [address] Erythrocyte distribution width (RBC) [Ratio] 14.3 % Normal 11.5-14.5 [facility] Comment on above: Performed By: #### C BC #### [facility] [address] [place] [address] Hematocrit (Bld) [Volume fraction] 32.8 % Low 33.4-46.0 [facility] Comment on above: Performed By: #### C BC #### [facility] [address] [place] [address] Hemoglobin (Bld) [Mass/Vol] 11.3 g/dL Normal 11.1-13.7 [facility] Comment on above: Performed By: #### C BC #### [facility] [address] [facility] [place] [address] Hypochromia BILLING REPRESENTATIVE Normal [facility] Comment on above: Performed By: #### C BC #### [facility] [address] [facility] [place] [address] Large Platelets BILLING REPRESENTATIVE Normal [facility] Comment on above: Performed By: #### C BC #### [facility] [address] [place] [address] Leukocytosis BILLING REPRESENTATIVE Normal [facility] Comment on above: Performed By: #### C BC #### [facility] [address] [place] [address] Leukopenia BILLING REPRESENTATIVE Normal [facility] Comment on above: Performed By: #### C BC #### [facility] [address] [place] [address] Lymphocytes (Bld) [#/Vol] 1.3 10*3/uL Normal 1.3-2.9 [facility] Comment on above: Performed By: #### C BC #### [facility] [address] [place] [address] Lymphocytes (Bld) [#/Vol] BILLING REPRESENTATIVE Normal [facility] Comment on above: Performed By: #### C BC #### [facility] [address] [place] [address] Lymphocytes/100 WBC (Bld) 21.8 % Normal 17.0-45.5 [facility] Comment on above: Performed By: #### C BC #### [facility] [address] [place] [address] Lymphocytes/100 WBC (Bld) BILLING REPRESENTATIVE Normal [facility] Comment on above: Performed By: #### C BC #### [facility] [address] [place] [address] Lymphocytosis # BILLING REPRESENTATIVE Normal [facility] Comment on above: Performed By: #### C BC #### [facility] [address] [place] [address] Lymphocytosis % BILLING REPRESENTATIVE Normal [facility] Comment on above: Performed By: #### C BC #### [facility] [address] [place] [address] Macrocytosis BILLING REPRESENTATIVE Normal [facility] Comment on above: Performed By: #### C BC #### [facility] [address] [place] [address] MCH (RBC) [Entitic mass] 31.1 pg High 27.0-31.0 [facility] Comment on above: Performed By: #### C BC #### [facility] [address] [place] [address] MCHC (RBC) [Mass/Vol] 34.5 g/dL Normal 33.0-37.0 [facility] Comment on above: Performed By: #### C BC #### [facility] [address] [place] [address] MCV (RBC) [Entitic vol] 90.2 fL Normal 81.0-99.0 [facility] Comment on above: Performed By: #### C BC #### [facility] [address] [place] [address] Microcytosis BILLING REPRESENTATIVE Normal [facility] Comment on above: Performed By: #### C BC #### [facility] [address] [place] [address] Monocytes (Bld) [#/Vol] 0.4 10*3/uL Normal 0.3-0.8 [facility] Comment on above: Performed By: #### C BC #### [facility] [address] [place] [address] Monocytes/100 WBC (Bld) 7.3 % Normal 5.5-11.7 [facility] Comment on above: Performed By: #### C BC #### [facility] [address] [place] [address] Monocytosis % BILLING REPRESENTATIVE Normal [facility] Comment on above: Performed By: #### C BC #### [facility] [address] [place] [address] Neutropenia # BILLING REPRESENTATIVE Normal [facility] Comment on above: Performed By: #### C BC #### [facility] [address] [place] [address] Neutropenia % BILLING REPRESENTATIVE Normal [facility] Comment on above: Performed By: #### C BC #### [facility] [address] [place] [address] Neutrophils (Bld) [#/Vol] BILLING REPRESENTATIVE Normal [facility] Comment on above: Performed By: #### C BC #### [facility] [address] [place] [address] Neutrophils Abs. # 4.2 K/uL Normal 2.2-4.8 [facility] Comment on above: Performed By: #### C BC #### [facility] [address] [place] [address] Neutrophils/100 WBC (Bld) 69.3 % High 43.0-65.0 [facility] Comment on above: Performed By: #### C BC #### [facility] [address] [place] [address] Neutrophils/100 WBC (Bld) BILLING REPRESENTATIVE Normal [facility] Comment on above: Performed By: #### C BC #### [facility] [address] [place] [address] Nucleated RBC (Bld) [#/Vol] 0.0 10*3/uL Normal [facility] Comment on above: Performed By: #### C BC #### [facility] [address] [facility] [place] [address] Nucleated RBC/100 WBC (Bld) [Ratio] 0.0 % Normal [facility] Comment on above: Performed By: #### C BC #### [facility] [employer] [facility] [address] [place] [address] Pancytopenia BILLING REPRESENTATIVE Normal [facility] Comment on above: Performed By: #### C BC #### [facility] [address] [place] [address] Platelet mean volume (Bld) [Entitic vol] 7.6 fL Normal 7.4-10.4 [facility] Comment on above: Performed By: #### C BC #### [facility] [address] [place] [address] Platelets (Bld) [#/Vol] 217 10*3/uL Normal 148-402 [facility] Comment on above: Performed By: #### C BC #### [facility] [address] [place] [address] Poikilocytosis BILLING REPRESENTATIVE Normal [facility] Comment on above: Performed By: #### C BC #### [facility] [employer] [facility] [address] [place] [address] RBC (Bld) [#/Vol] 3.63 10*6/uL Low 3.83-5.19 [facility] Comment on above: Performed By: #### C BC #### [facility] [employer] [facility] [address] [place] [address] Small Platelets BILLING REPRESENTATIVE Normal [facility] Comment on above: Performed By: #### C BC #### [facility] [employer] [facility] [address] [place] [address] Thrombocytopenia BILLING REPRESENTATIVE Normal [facility] Comment on above: Performed By: #### C BC #### [facility] [address] [place] [address] Thrombocytopenia. BILLING REPRESENTATIVE Normal [facility] Comment on above: Performed By: #### C BC #### [facility] [address] [place] [address] Thrombocytosis BILLING REPRESENTATIVE Normal [facility] Comment on above: Performed By: #### C BC #### [facility] [address] [place] [address] WBC (Bld) [#/Vol] 6.1 10*3/uL Normal 3.6-10.8 [facility] Comment on above: Performed By: #### C BC #### [facility] [address] [place] [address] CHEST APon 11-18-2019 CHEST AP EXAMINATION: ONE XRAY VIEW OF THE CHEST 11/18/2019 4:31 pm COMPARISON: None. HISTORY: ORDERING SYSTEM PROVIDED HISTORY: palpitations FINDINGS: The lungs are without acute focal process. There is no effusion or pneumothorax. The cardiomediastinal silhouette is without acute process. The osseous structures are without acute process. IMPRESSION: No acute process. Normal [facility] Comprehensive Metabolic Pane roseanne 11-18-2019 Albumin [Mass/Vol] 3.3 g/dL Low 3.4-5.0 [facility] Comment on above: Performed By: #### C MP #### [facility] [address] [place] [address] Albumin/Globulin [Mass ratio] 0.9 {ratio} Low 1.1-2.5 [facility] Comment on above: Performed By: #### C MP #### [facility] [address] [place] [address] ALP [Catalytic activity/Vol] 44 U/L Low 54-112 [facility] Comment on above: Performed By: #### C MP #### [facility] [address] [place] [address] ALT [Catalytic activity/Vol] 32 U/L Normal 13-66 [facility] Comment on above: Performed By: #### C MP #### [facility] [address] [place] [address] Anion gap [Moles/Vol] 9.9 mmol/L Normal 8.0-16.0 [facility] Comment on above: Performed By: #### C MP #### [facility] [address] [place] [address] AST [Catalytic activity/Vol] 24 U/L Normal 3-39 [facility] Comment on above: Performed By: #### C MP #### [facility] [address] [place] [address] Bilirubin Ql (U) 0.69 mg/dL Normal 0.00-0.99 [facility] Comment on above: Performed By: #### C MP #### [facility] [address] [place] [address] Calcium [Mass/Vol] 8.6 mg/dL Normal 8.2-10.0 [facility] Comment on above: Performed By: #### C MP #### [facility] [address] [place] [address] Chloride [Moles/Vol] 106 mmol/L Normal 94-110 [facility] Comment on above: Performed By: #### C MP #### [facility] [address] [place] [address] CO2 [Moles/Vol] 30 mmol/L Normal 21-34 [facility] Comment on above: Performed By: #### C MP #### [facility] [address] [place] [address] Creatinine [Mass/Vol] 0.62 mg/dL Normal 0.51-0.95 [facility] Comment on above: Performed By: #### C MP #### [facility] [address] [place] [address] GFR/1.73 sq M predicted among blacks MDRD (S/P/Bld) [Vol rate/Area] mL/min/{1.73_m2} Normal >60 [facility] Comment on above: Result Comment: Able Bodied [place] be[place] Kidney Disease less than 60 mL/min/1.73 m2 Kidney Failure less than 15 mL/min/1.73 m2 Average estimated GFR by age: 20-29 years 116 mL/min/1.73 m2 Performed By: #### C MP #### [facility] [address] [place] [address] GFR/1.73 sq M predicted among non-blacks MDRD (S/P/Bld) [Vol rate/Area] mL/min/{1.73_m2} Normal >60 [facility] Comment on above: Performed By: #### C MP #### [facility] [address] [place] [address] Globulin (S) [Mass/Vol] 3.5 g/dL Normal 1.5-4.5 [facility] Comment on above: Performed By: #### C MP #### [facility] [facility] [address] [place] [address] Glucose [Mass/Vol] 90 mg/dL Normal 65-100 [facility] Comment on above: Performed By: #### C MP #### [facility] [facility] [address] [place] [address] Potassium [Moles/Vol] 3.9 mmol/L Normal 3.3-5.1 [facility] Comment on above: Performed By: #### C MP #### [facility] [address] [place] [address] Protein [Mass/Vol] 6.8 g/dL Normal 6.1-8.2 [facility] Comment on above: Performed By: #### C MP #### [facility] [address] [place] [address] Sodium [Moles/Vol] 142 mmol/L Normal 132-145 [facility] Comment on above: Performed By: #### C MP #### [facility] [address] [place] [address] Urea nitrogen [Mass/Vol] 8.9 mg/dL Normal 3.2-26.9 [facility] Comment on above: Performed By: #### C MP #### [facility] [address] [place] [address] Urea nitrogen/Creatinine [Mass ratio] 14 mg/mg Normal 6-20 [facility] Comment on above: Performed By: #### C MP #### [facility] [address] [place] [address] Ethanol (Medical)on 11-18-19 20 Ethanol [Mass/Vol] mg/dL Normal 0.0-0.0 [facility] Comment on above: Performed By: #### A LC #### [facility] [address] [place] [address] HCG Quanton 11-18-2019 HCG Quant <1 Normal [facility] Comment on above: Result Comment: Expe cted values for Quantitative HCG Assay: Years Range Male 19-83 0-2 mIU/mL Non- female 22-87 0-6 mIU/mL Maxium level of 5,000 to 200,000 mIU/mL is reached at 10-12wks. Levels decline slowly to 1,000-50,000 during 3rd trimester.wks. Please note reference range change Effective: 06-04-03 Performed By: #### H CGQ #### [facility] [address] [place] [address] Magnesiumon 11-18-2019 Magnesium [Mass/Vol] 1.7 mg/dL Normal 1.3-2.3 [facility] Comment on above: Performed By: #### C BC #### [facility] [address] [place] [address] Phosphoruson 11-18-2019 Phosphate [Mass/Vol] 3.4 mg/dL Normal 2.5-4.9 [facility] Comment on above: Performed By: #### C BC #### [facility] [address] [place] [address] Salic Level W/ doseon 2019 Salicylate <2.8 Normal 2.8-20.0 [facility] Comment on above: Performed By: #### S ALIC #### [facility] [address] [place] [address] Troponin ion 11-18-2019 Troponin I.cardiac [Mass/Vol] ng/mL Normal 0.000-0.056 [facility] Comment on above: Result Comment: myocardial injury. Clinical correlation required. >0.056 Troponin I interpretation: Troponin I present. Diagnostic possibilities include, but are not limited to, unstable angina, micro myocardial injury, early myocardial injury, cardiomyopathy or myocardial infarct. Clinical correlation required. NOTE-Troponin I testing performed on a Siemens Dimension analyzer which has a coefficient varient of <10 percent at the 99th percentile as recommended by 2014 AHA NSTE-ACS guidelines and the third universal definition of NE. The 2012 Third [place] Definition of NE defines a positive troponin as an elevation of the troponin I value above the 99th percentile of normal. Troponin I is the preferred biomarker overall and the only biomarker assessed for Chest Pain Accreditation purposes. Troponin I testing should be measured at presentation, and 3-6 hours after symptom onset in all patients presenting with ACS symptoms to identify a rising and/or falling pattern. NOTE-Dietary supplements containing high biotin levels may cause significant interference with affected lab tests, including cardiovascular diagnostic tests and hormone tests that use biotin technology. Incorrect test results may be generated if there is biotin in the patients specimen. Performed By: #### L TROP #### [facility] [address] [place] [address] UA w/reflex cultureon 2019 Appearance (U) CLEAR Normal Clear [facility] Comment on above: Performed By: #### C BC #### [facility] [address] [place] [address] Bilirubin Ql (U) Negative Normal Negative [facility] Comment on above: Performed By: #### C BC #### [facility] [address] [place] [address] Blood Negative Normal Negative [facility] Comment on above: Performed By: #### C BC #### [facility] [address] [place] [address] Color (U) P. YELLOW Normal Yellow [facility] Comment on above: Performed By: #### C BC #### [facility] [address] [place] [address] Glucose [Mass/Vol] NORMAL Normal Negative [facility] Comment on above: Performed By: #### C BC #### [facility] [employer] [facility] [place] [address] [place] [address] Ketones Ql (U) Negative Normal Negative [facility] Comment on above: Performed By: #### C BC #### [facility] [address] [place] [address] Leukocytes Esterase TRACE Abnormal Negative [facility] Comment on above: Performed By: #### C BC #### [facility] [address] [place] [address] Nitrite Ql (U) Negative Normal Negative [facility] Comment on above: Performed By: #### C BC #### [facility] [address] [place] [address] pH (U) 8 [pH] Normal [facility] Comment on above: Performed By: #### C BC #### [facility] [address] [place] [address] Protein [Mass/Vol] Negative Normal Negative [facility] Comment on above: Performed By: #### C BC #### [facility] [address] [place] [address] Specific gravity (U) [Rel density] 1.010 Low 1.015-1.025 [facility] Comment on above: Performed By: #### C BC #### [facility] [address] [place] [address] Order Comment: Drug Screen Comment No Performed By: #### D RUGR #### [facility] [address] [place] [address] Urobilinogen Qn (U) NORMAL Normal Normal-1.0 [facility] Comment on above: Performed By: #### C BC #### [facility] [address] [place] [address] Urine Drug Screeningon 11-17 Amphetamines Ql (U) Negative Normal [facility] Comment on above: Order Comment: Drug Screen Comment No Result Comment: cuto ff 1000 ng/mL Performed By: #### D RUGR #### [facility] [place] [address] [place] [address] Barbiturates Negative Normal [facility] Comment on above: Order Comment: Drug Screen Comment No Result Comment: cuto ff 200 ng/mL Performed By: #### D RUGR #### [facility] [place] [address] [place] [address] Benzodiazepines Ql (U) Negative Normal [facility] Comment on above: Order Comment: Drug Screen Comment No Result Comment: cuto ff 200 ng/mL Performed By: #### D RUGR #### [facility] [address] [place] [address] Cocaine Ql (U) Negative [facility] Comment on above: Order Comment: Drug Screen Comment No Result Comment: cuto ff 300 ng/mL Performed By: #### D RUGR #### [facility] [address] [place] [address] Opiates Ql (U) Negative [facility] Comment on above: Order Comment: Drug Screen Comment No Result Comment: cuto ff 300 ng/mL Performed By: #### D RUGR #### [facility] [address] [place] [address] pH (Bld) 8.0 Normal 5.0-8.0 [facility] Comment on above: Order Comment: Drug Screen Comment No Performed By: #### D RUGR #### [facility] [address] [place] [address] Phencyclidine Ql (U) Negative Normal [facility] Comment on above: Order Comment: Drug Screen Comment No Result Comment: cuto ff 25 ng/mL Performed By: #### D RUGR #### [facility] [address] [place] [address] [facility] Comment on above: Order Comment: Drug Screen Comment No Result Comment: cuto ff 50 ng/mL Performed By: #### D RUGR #### [facility] [address] [place] [address] - - Normal [facility] Comment on above: Order Comment: Drug Screen Comment No Result Comment: . Drug Screen Comment: This assay provides a preliminary unconfirmed analytical test result that may be suitable for the clinical management of patients in certain situations. Some soid-kii-ystuail medications, as well as adulterants, may cause inaccurate results. Screen only testing does not meet the [facility] Forensic Urine Drug Testing Program requirements as a forensic urine drug test for workplace testing. . Performed By: #### D RUGR #### [facility] [address] [place] [address] Urine Microscopicon 11-18-19 20 Bacteria LM.HPF (Urine sed) [#/Area] BILLING REPRESENTATIVE Normal 0 - 1+ [facility] Comment on above: Performed By: #### C BC #### [facility] [address] [place] [address] Casts LM.LPF (Urine sed) [#/Area] BILLING REPRESENTATIVE Normal [facility] Comment on above: Performed By: #### C BC #### [facility] [address] [place] [address] Crystals LM Nom (Urine sed) BILLING REPRESENTATIVE Normal [facility] Comment on above: Performed By: #### C BC #### [facility] [place] [address] [place] [address] Crystals LM Nom (Urine sed) Rare Amorphous Normal [facility] Comment on above: Performed By: #### C BC #### [facility] [address] [place] [address] Epithelial cells LM.HPF (Urine sed) [#/Area] 0-2 Normal 0 - 6 [facility] Comment on above: Performed By: #### C BC #### [facility] [place] [address] [place] [address] Mucus Ql (Urine sed) BILLING REPRESENTATIVE Normal [facility] Comment on above: Performed By: #### C BC #### [facility] [place] [address] [place] [address] RBC (U) [#/Vol] None Seen Normal 0 - 2 [facility] Comment on above: Performed By: #### C BC #### [facility] [place] [address] [place] [address] Trichomonas BILLING REPRESENTATIVE Normal [facility] Comment on above: Performed By: #### C BC #### [facility] [place] [address] [place] [address] WBC (Bld) [#/Vol] 0-2 Normal 0 - 6 [facility] Comment on above: Performed By: #### C BC #### [facility] [place] [address] [place] [address] Yeast LM Ql (Urine sed) BILLING REPRESENTATIVE Normal [facility] Comment on above: Performed By: #### C BC #### [facility] [place] [address] [place] [address] Other BILLING REPRESENTATIVE Normal [facility] Comment on above: Performed By: #### C BC #### [facility] [place] [address] [place] [address] CBC w/Auto Differentialon Anemia BILLING REPRESENTATIVE [facility] Comment on above: Performed By: #### C BC #### [facility] [place] [address] [place] [address] Anisocytosis Ql (Bld) BILLING REPRESENTATIVE Normal [facility] Comment on above: Performed By: #### C BC #### [facility] [place] [address] [facility] [address] Basophils Abs. # 0.0 K/uL Normal 0.0-0.1 [facility] Comment on above: Performed By: #### C BC #### [facility] [place] [address] [facility] [place] [address] Basophils/100 WBC (Bld) 0.5 % Normal 0.2-1.0 [facility] Comment on above: Performed By: #### C BC #### [facility] [address] [facility] [place] [address] Basophils/100 WBC (Bld) BILLING REPRESENTATIVE Normal [facility] Comment on above: Performed By: #### C BC #### [facility] [place] [address] [facility] [place] [address] Bosophillia # BILLING REPRESENTATIVE [facility] Comment on above: Performed By: #### C BC #### [facility] [place] [address] [facility] [place] [address] Eosinophils (Bld) [#/Vol] BILLING REPRESENTATIVE Normal [facility] Comment on above: Performed By: #### C BC #### [facility] [place] [address] [facility] [place] [address] Eosinophils (Bld) [#/Vol] 0.0 10*3/uL Normal 0.0-0.2 [facility] Comment on above: Performed By: #### C BC #### [facility] [place] [address] [facility] [place] [address] Eosinophils/100 WBC (Bld) BILLING REPRESENTATIVE Normal [facility] Comment on above: Performed By: #### C BC #### [facility] [place] [address] [facility] [place] [address] Eosinophils/100 WBC (Bld) 0.3 % Low 0.9-2.9 [facility] Comment on above: Performed By: #### C BC #### [facility] [place] [address] [place] [address] Erythocytosis BILLING REPRESENTATIVE Normal [facility] Comment on above: Performed By: #### C BC #### [facility] [place] [address] [facility] [place] [address] Erythrocyte distribution width (RBC) [Ratio] 14.7 % High 11.5-14.5 [facility] Comment on above: Performed By: #### C BC #### [facility] [place] [address] [facility] [place] [address] Hematocrit (Bld) [Volume fraction] 37.5 % Normal 33.4-46.0 [facility] Comment on above: Performed By: #### C BC #### [facility] [place] [address] [facility] [place] [address] Hemoglobin (Bld) [Mass/Vol] 12.9 g/dL Normal 11.1-13.7 [facility] Comment on above: Performed By: #### C BC #### [facility] [place] [address] [facility] [place] [address] Hypochromia BILLING REPRESENTATIVE Normal [facility] Comment on above: Performed By: #### C BC #### [facility] [place] [address] [place] [address] Large Platelets BILLING REPRESENTATIVE Normal [facility] Comment on above: Performed By: #### C BC #### [facility] [place] [address] [place] [address] Leukocytosis BILLING REPRESENTATIVE Normal [facility] Comment on above: Performed By: #### C BC #### [facility] [place] [address] [place] [address] Leukopenia BILLING REPRESENTATIVE Normal [facility] Comment on above: Performed By: #### C BC #### [facility] [place] [address] [place] [address] Lymphocytes (Bld) [#/Vol] 1.4 10*3/uL Normal 1.3-2.9 [facility] Comment on above: Performed By: #### C BC #### [facility] [place] [address] [place] [address] Lymphocytes (Bld) [#/Vol] BILLING REPRESENTATIVE Normal [facility] Comment on above: Performed By: #### C BC #### [facility] [place] [address] [place] [address] Lymphocytes/100 WBC (Bld) BILLING REPRESENTATIVE Normal [facility] Comment on above: Performed By: #### C BC #### [facility] [place] [address] [place] [address] Lymphocytes/100 WBC (Bld) 27.6 % Normal 17.0-45.5 [facility] Comment on above: Performed By: #### C BC #### [facility] [place] [address] [place] [address] Lymphocytosis # BILLING REPRESENTATIVE Normal [facility] Comment on above: Performed By: #### C BC #### [facility] [place] [address] [place] [address] Lymphocytosis % BILLING REPRESENTATIVE Normal [facility] Comment on above: Performed By: #### C BC #### [facility] [place] [address] [place] [address] Macrocytosis BILLING REPRESENTATIVE Normal [facility] Comment on above: Performed By: #### C BC #### [facility] [address] [place] [address] MCH (RBC) [Entitic mass] 30.8 pg Normal 27.0-31.0 [facility] Comment on above: Performed By: #### C BC #### [facility] [address] [place] [address] MCHC (RBC) [Mass/Vol] 34.3 g/dL Normal 33.0-37.0 [facility] Comment on above: Performed By: #### C BC #### [facility] [address] [place] [address] MCV (RBC) [Entitic vol] 89.8 fL Normal 81.0-99.0 [facility] Comment on above: Performed By: #### C BC #### [facility] [address] [place] [address] Microcytosis BILLING REPRESENTATIVE Normal [facility] Comment on above: Performed By: #### C BC #### [facility] [address] [place] [address] Monocytes (Bld) [#/Vol] 0.4 10*3/uL Normal 0.3-0.8 [facility] Comment on above: Performed By: #### C BC #### [facility] [address] [place] [address] Monocytes/100 WBC (Bld) 7.4 % Normal 5.5-11.7 [facility] Comment on above: Performed By: #### C BC #### [facility] [address] [place] [address] Monocytosis % BILLING REPRESENTATIVE Normal [facility] Comment on above: Performed By: #### C BC #### [facility] [address] [place] [address] Neutropenia # BILLING REPRESENTATIVE Normal [facility] Comment on above: Performed By: #### C BC #### [facility] [place] [address] [place] [address] Neutropenia % BILLING REPRESENTATIVE Normal [facility] Comment on above: Performed By: #### C BC #### [facility] [place] [address] [place] [address] Neutrophils (Bld) [#/Vol] BILLING REPRESENTATIVE Normal [facility] Comment on above: Performed By: #### C BC #### [facility] [place] [address] [place] [address] Neutrophils Abs. # 3.3 K/uL Normal 2.2-4.8 [facility] Comment on above: Performed By: #### C BC #### [facility] [place] [address] [place] [address] Neutrophils/100 WBC (Bld) BILLING REPRESENTATIVE Normal [facility] Comment on above: Performed By: #### C BC #### [facility] [place] [address] [place] [address] Neutrophils/100 WBC (Bld) 64.2 % Normal 43.0-65.0 [facility] Comment on above: Performed By: #### C BC #### [facility] [place] [address] [place] [address] Nucleated RBC (Bld) [#/Vol] 0.0 10*3/uL Normal [facility] Comment on above: Performed By: #### C BC #### [facility] [place] [address] [place] [address] Nucleated RBC/100 WBC (Bld) [Ratio] 0.0 % Normal [facility] Comment on above: Performed By: #### C BC #### [facility] [place] [address] [place] [address] Pancytopenia BILLING REPRESENTATIVE Normal [facility] Comment on above: Performed By: #### C BC #### [facility] [place] [address] [place] [address] Platelet mean volume (Bld) [Entitic vol] 7.6 fL Normal 7.4-10.4 [facility] Comment on above: Performed By: #### C BC #### [facility] [place] [address] [place] [address] Platelets (Bld) [#/Vol] 230 10*3/uL Normal 148-402 [facility] Comment on above: Performed By: #### C BC #### [facility] [place] [address] [place] [address] Poikilocytosis BILLING REPRESENTATIVE Normal [facility] Comment on above: Performed By: #### C BC #### [facility] [place] [address] [place] [address] RBC (Bld) [#/Vol] 4.18 10*6/uL Normal 3.83-5.19 [facility] Comment on above: Performed By: #### C BC #### [facility] [place] [address] [place] [address] Small Platelets BILLING REPRESENTATIVE Normal [facility] Comment on above: Performed By: #### C BC #### [facility] [place] [address] [place] [address] Thrombocytopenia BILLING REPRESENTATIVE Normal [facility] Comment on above: Performed By: #### C BC #### [facility] [place] [address] [place] [address] Thrombocytopenia. BILLING REPRESENTATIVE Normal [facility] Comment on above: Performed By: #### C BC #### [facility] [place] [address] [facility] [place] [address] Thrombocytosis BILLING REPRESENTATIVE Normal [facility] Comment on above: Performed By: #### C BC #### [facility] [place] [address] [facility] [place] [address] WBC (Bld) [#/Vol] 5.1 10*3/uL Normal 3.6-10.8 [facility] Comment on above: Performed By: #### C BC #### [facility] [place] [address] [facility] [place] [address] Comprehensive Metabolic Pane roseanne 11-09-2019 Albumin [Mass/Vol] 4.1 g/dL Normal 3.4-5.0 [facility] Comment on above: Performed By: #### C MP #### [facility] [place] [address] [place] [address] Albumin/Globulin [Mass ratio] 1.1 {ratio} Normal 1.1-2.5 [facility] Comment on above: Performed By: #### C MP #### [facility] [place] [address] [place] [address] ALP [Catalytic activity/Vol] 52 U/L Low 54-112 [facility] Comment on above: Performed By: #### C MP #### [facility] [place] [address] [facility] [place] [address] ALT [Catalytic activity/Vol] 17 U/L Normal 13-66 [facility] Comment on above: Performed By: #### C MP #### [facility] [place] [address] [facility] [place] [address] Anion gap [Moles/Vol] 11.8 mmol/L Normal 8.0-16.0 [facility] Comment on above: Performed By: #### C MP #### [facility] [address] [place] [address] AST [Catalytic activity/Vol] 15 U/L Normal 3-39 [facility] Comment on above: Performed By: #### C MP #### [facility] [address] [place] [address] Bilirubin Ql (U) 0.83 mg/dL Normal 0.00-0.99 [facility] Comment on above: Performed By: #### C MP #### [facility] [address] [place] [address] Calcium [Mass/Vol] 8.7 mg/dL Normal 8.2-10.0 [facility] Comment on above: Performed By: #### C MP #### [facility] [address] [place] [address] Chloride [Moles/Vol] 107 mmol/L Normal 94-110 [facility] Comment on above: Performed By: #### C MP #### [facility] [address] [place] [address] CO2 [Moles/Vol] 28 mmol/L Normal 21-34 [facility] Comment on above: Performed By: #### C MP #### [facility] [address] [place] [address] Creatinine [Mass/Vol] 0.80 mg/dL Normal 0.51-0.95 [facility] Comment on above: Performed By: #### C MP #### [facility] [address] [place] [address] GFR/1.73 sq M predicted among blacks MDRD (S/P/Bld) [Vol rate/Area] mL/min/{1.73_m2} Normal >60 [facility] Comment on above: Result Comment: Able Bodied [place] be[place] Kidney Disease less than 60 mL/min/1.73 m2 Kidney Failure less than 15 mL/min/1.73 m2 Average estimated GFR by age: 20-29 years 116 mL/min/1.73 m2 Performed By: #### C MP #### [facility] [address] [place] [address] GFR/1.73 sq M predicted among non-blacks MDRD (S/P/Bld) [Vol rate/Area] mL/min/{1.73_m2} Normal >60 [facility] Comment on above: Performed By: #### C MP #### [facility] [address] [place] [address] Globulin (S) [Mass/Vol] 3.6 g/dL Normal 1.5-4.5 [facility] Comment on above: Performed By: #### C MP #### [facility] [address] [place] [address] Glucose [Mass/Vol] 91 mg/dL Normal 65-100 [facility] Comment on above: Performed By: #### C MP #### [facility] [address] [place] [address] Potassium [Moles/Vol] 3.8 mmol/L Normal 3.3-5.1 [facility] Comment on above: Performed By: #### C MP #### [facility] [address] [place] [address] Protein [Mass/Vol] 7.7 g/dL Normal 6.1-8.2 [facility] Comment on above: Performed By: #### C MP #### [facility] [address] [place] [address] Sodium [Moles/Vol] 143 mmol/L Normal 132-145 [facility] Comment on above: Performed By: #### C MP #### [facility] [address] [place], [place] [id number] Urea nitrogen [Mass/Vol] 11.8 mg/dL Normal 3.2-26.9 [facility] Comment on above: Performed By: #### C MP #### [facility] [address] [place], [place] [address] Urea nitrogen/Creatinine [Mass ratio] 15 mg/mg Normal 6-20 [facility] Comment on above: Performed By: #### C MP #### [facility] [address] [place], [place] [id number] LCHGCon 10-05-2019 L[facility] Chlamy trachomatis, KATELYNN = Negative Neiss gonorrhoeae, KATELYNN = Negative Performed at: =[address] [id number] Acetylene Torch Burner: Luz Marina Sherman MD, Phone: [phone] Source Chlamy/GC Amp = urine Normal [facility] Comment on above: Performed By: #### M IC2 #### [facility] [address] [place], [place] [id number] CBCon 09-14-2019 Erythrocyte distribution width (RBC) [Ratio] 12.8 % 11.5 - 14.5 % [facility] Hematocrit (Bld) [Volume fraction] 41.8 % 33.6 - 46.8 % [facility] Hemoglobin (Bld) [Mass/Vol] 13.7 g/dL 11.7 - 15.8 g/dL [facility] MCH (RBC) [Entitic mass] 29.7 pg 27.5 - 32.3 pg [facility] MCHC (RBC) [Mass/Vol] 32.8 g/dL 30.7 - 35.5 g/dl [facility] MCV (RBC) [Entitic vol] 90.7 fL 80.2 - 99 fL [facility] Platelets (Bld) [#/Vol] 245.0 10*3/uL [facility] RBC (Bld) [#/Vol] 4.61 10*6/uL [facility] WBC LM Ql (Sput) 5.2 [facility] Comprehensive metabolic pane l aka Metaboon 09-14-2019 Albumin [Mass/Vol] 4.5 g/dL 3.5 - 5 g/dL [facility] Alk Phos 40 U/L 24 - 126 U/L [facility] ALT [Catalytic activity/Vol] 15 U/L 9 - 52 U/L [facility] AST [Catalytic activity/Vol] 17 U/L 3 - 47 U/L [facility] Bilirubin [Mass/Vol] 0.6 mg/dL 0.2 - 1 .6 mg/dL [facility] Calcium [Mass/Vol] 10.0 mg/dL 8.4 - 10. 4 mg/dL [facility] Chloride [Moles/Vol] 107 mmol/L 96 - 10 9 mmol/L [facility] CO2 [Moles/Vol] 22 mmol/L 22 - 30 mmol/L [facility] Comprehensive metabolic 2000 panel 0.86 mg/dL 0.52 - 1.04 mg/dL [facility] Glucose [Mass/Vol] 121 mg/dL High 65 - 100 mg/dL [facility] Interpretation and review of laboratory results Abnormal [facility] Potassium [Moles/Vol] 3.8 mmol/L 3.6 - 5.1 mmol/L [facility] Protein [Mass/Vol] 7.8 g/dL 6.3 - 8.2 g/dL [facility] Sodium [Moles/Vol] 142 mmol/L 135 - 147 mmol/L [facility] Urea nitrogen [Mass/Vol] 11 mg/dL 8 - 20 mg/dL [facility] GLOMERULAR FILTRATION RATEon 09-14-2019 GFR/1.73 sq M.predicted MDRD (S/P/Bld) [Vol rate/Area] mL/min/{1.73_m2} [facility] Comment on above: To estimate the GFR for Americans, multiply the result provided by 1.21. Population mean GFR = 116 ml/min/1.73 sq.m. for ages 18-29 yrs. The MDRD is validated in individuals 18-70 years of age. It is less accurate in patients with extremes of muscle mass, restriction of dietary protein, ingestion of creatine, extra-renal metabolism of creatinine, or treatment with medications that affect renal tubular creatinine secretion. GFR Categories in Chronic Kidney Disease (CKD) Category: GFR(mL/min/1.73m^2) Interpretation: G1* 90 or greater Normal or high G2* 60-89 Mild decrease G3a 45-59 Mild to moderate decrease G3b 30-44 Moderate to severe decrease G4 15-29 Severe decrease G5 14 or less Kidney failure *G1&G2: In the absence of evidence of kidney damage, neither GFR category G1 nor G2 fulfill the criteria for CKD Kidney Int Suppl.2013;3:1-150 HEPATITIS VIRAL PANELon 08-19 HAV IgM Qn (S) Nonreactive Nonreactive [facility] HCV Ab Qn (S) Nonreactive Nonreactive [facility] Hep B Core-M AB Nonreactive Nonreactive [facility] Hep B Surf AG Nonreactive Nonreactive [facility] HIV-1 and HIV-2 antibodieson 09-14-2019 HIV 1+2 Ab Ql (S) Nonreactive Nonreactive [facility] Comment on above: Nonreactive No detectable HIV-1p24 Antigen or HIV-1/HIV2 antibodies Syphilis Treponema Antibodyo n 09-14-2019 Syphilis Treponema Antibody Nonreactive Nonreactive [facility] Vital Signs Date Time Vital Sign Value Performing Clinician Facility 10-26-2024 18:48-0400 Body mass index (BMI) [Ratio] 23.15 kg/m2 Catie Flores APRN.CNP Work Phone: [facility] 10-26-2024 18:48-0400 Body temperature 97.59 [degF] Catie Flores APRN.CNP Work Phone: [facility] 10-26-2024 18:48-0400 Body weight 70.6 kg Catie Flores APRN.CNP Work Phone: [facility] 10-26-2024 18:48-0400 Diastolic blood pressure 82 mm[Hg] Catie Flores APRN.CNP Work Phone: [facility] 10-26-2024 18:48-0400 Heart rate 101 /min Catie Sandra RECORDS MANAGEMENT COORDINATOR.DIE CAST ENGINEER Work Phone: [facility] 10-26-2024 18:48-0400 Respiratory rate 18 /min Catie Sandra RECORDS MANAGEMENT COORDINATOR.DIE CAST ENGINEER Work Phone: [facility] 10-26-2024 18:48-0400 SaO2% (BldA) [Mass fraction] 99 % Catie Sandra RECORDS MANAGEMENT COORDINATOR.DIE CAST ENGINEER Work Phone: [facility] 10-26-2024 18:48-0400 Systolic blood pressure 132 mm[Hg] Catie Sandra RECORDS MANAGEMENT COORDINATOR.DIE CAST ENGINEER Work Phone: [facility] 04-14-2024 17:00-0500 Body mass index (BMI) [Ratio] 27.48 kg/m2 Tucker Claus RECORDS MANAGEMENT COORDINATOR.DIE CAST ENGINEER Work Phone: [facility] 04-14-2024 17:00-0500 Body temperature 98.1 [degF] Tucker Claus RECORDS MANAGEMENT COORDINATOR.DIE CAST ENGINEER Work Phone: [facility] 04-14-2024 17:00-0500 Body weight 83.8 kg Tucker Devlin RECORDS MANAGEMENT COORDINATOR.DIE CAST ENGINEER Work Phone: [facility] 04-14-2024 17:00-0500 Diastolic blood pressure 84 mm[Hg] Tucker Claus RECORDS MANAGEMENT COORDINATOR.DIE CAST ENGINEER Work Phone: [facility] 04-14-2024 17:00-0500 Heart rate 96 /min Tucker Claus RECORDS MANAGEMENT COORDINATOR.DIE CAST ENGINEER Work Phone: [facility] 04-14-2024 17:00-0500 Respiratory rate 18 /min Tucker Claus RECORDS MANAGEMENT COORDINATOR.DIE CAST ENGINEER Work Phone: [facility] 04-14-2024 17:00-0500 SaO2% (BldA) [Mass fraction] 100 % Tucker Claus RECORDS MANAGEMENT COORDINATOR.DIE CAST ENGINEER Work Phone: [facility] 04-14-2024 17:00-0500 Systolic blood pressure 129 mm[Hg] Tucker Claus RECORDS MANAGEMENT COORDINATOR.DIE CAST ENGINEER Work Phone: [facility] 10-07-2023 16:31-0400 Body mass index (BMI) [Ratio] 26.79 kg/m2 Tucker Claus RECORDS MANAGEMENT COORDINATOR.DIE CAST ENGINEER Work Phone: [facility] 10-07-2023 16:31-0400 Body temperature 99 [degF] Tucker Claus RECORDS MANAGEMENT COORDINATOR.DIE CAST ENGINEER Work Phone: [facility] 10-07-2023 16:31-0400 Body weight 81.7 kg Tuckerazul Devlin RECORDS MANAGEMENT COORDINATOR.DIE CAST ENGINEER Work Phone: [facility] 10-07-2023 16:31-0400 Diastolic blood pressure 80 mm[Hg] Tucker Claus RECORDS MANAGEMENT COORDINATOR.DIE CAST ENGINEER Work Phone: [facility] 10-07-2023 16:31-0400 Heart rate 98 /min Tucker Devlin RECORDS MANAGEMENT COORDINATOR.DIE CAST ENGINEER Work Phone: [facility] 10-07-2023 16:31-0400 Respiratory rate 18 /min Tuckerazul Devlin RECORDS MANAGEMENT COORDINATOR.DIE CAST ENGINEER Work Phone: [facility] 10-07-2023 16:31-0400 SaO2% (BldA) [Mass fraction] 99 % Tucker Claus RECORDS MANAGEMENT COORDINATOR.DIE CAST ENGINEER Work Phone: [facility] 10-07-2023 16:31-0400 Systolic blood pressure 122 mm[Hg] Tucker Claus RECORDS MANAGEMENT COORDINATOR.DIE CAST ENGINEER Work Phone: [facility] 08-07-2023 17:29-0400 Body temperature 98.2 [degF] Vicki Praisler-Wood RECORDS MANAGEMENT COORDINATOR.DIE CAST ENGINEER Work Phone: [facility] 08-07-2023 17:29-0400 Body weight 82.8 kg Vicki Praisler-Wood RECORDS MANAGEMENT COORDINATOR.DIE CAST ENGINEER Work Phone: [facility] 08-07-2023 17:29-0400 Diastolic blood pressure 82 mm[Hg] Vicki Praisler-Wood RECORDS MANAGEMENT COORDINATOR.DIE CAST ENGINEER Work Phone: [facility] 08-07-2023 17:29-0400 Heart rate 105 /min Vicki Praisler-Wood RECORDS MANAGEMENT COORDINATOR.DIE CAST ENGINEER Work Phone: [facility] 08-07-2023 17:29-0400 Respiratory rate 20 /min Vicki Praisler-Wood RECORDS MANAGEMENT COORDINATOR.DIE CAST ENGINEER Work Phone: [facility] 08-07-2023 17:29-0400 SaO2% (BldA) [Mass fraction] 98 % Vicki Praisler-Wood RECORDS MANAGEMENT COORDINATOR.DIE CAST ENGINEER Work Phone: [facility] 08-07-2023 17:29-0400 Systolic blood pressure 134 mm[Hg] Vicki Praisler-Wood RECORDS MANAGEMENT COORDINATOR.DIE CAST ENGINEER Work Phone: [facility] 05-05-2023 15:21-0500 Body temperature 99.19 [degF] Krislyn Aberegg PA Work Phone: [facility] 05-05-2023 15:21-0500 Body weight 78.47 kg Krislyn Aberegg PA Work Phone: [facility] 05-05-2023 15:21-0500 Diastolic blood pressure 81 mm[Hg] Krislyn Aberegg PA Work Phone: [facility] 05-05-2023 15:21-0500 Heart rate 107 /min Krislyn Aberegg PA Work Phone: [facility] 05-05-2023 15:21-0500 Respiratory rate 20 /min Krislyn Aberegg PA Work Phone: [facility] 05-05-2023 15:21-0500 SaO2% (BldA) [Mass fraction] 100 % Krislyn Aberegg PA Work Phone: [facility] 05-05-2023 15:21-0500 Systolic blood pressure 134 mm[Hg] Krislyn Aberegg PA Work Phone: [facility] 03-26-2023 17:45-0500 Body temperature 98.8 [degF] Barrie Martinez RECORDS MANAGEMENT COORDINATOR.DIE CAST ENGINEER Work Phone: [facility] 03-26-2023 17:45-0500 Body weight 77.47 kg [facility] RECORDS MANAGEMENT COORDINATOR.DIE CAST ENGINEER Work Phone: [facility] 03-26-2023 17:45-0500 Diastolic blood pressure 84 mm[Hg] Barrie Pendlebury RECORDS MANAGEMENT COORDINATOR.DIE CAST ENGINEER Work Phone: [facility] 03-26-2023 17:45-0500 Heart rate 108 /min Barrie Pendlebury RECORDS MANAGEMENT COORDINATOR.DIE CAST ENGINEER Work Phone: [facility] 03-26-2023 17:45-0500 Respiratory rate 18 /min [facility] RECORDS MANAGEMENT COORDINATOR.DIE CAST ENGINEER Work Phone: [facility] 03-26-2023 17:45-0500 SaO2% (BldA) [Mass fraction] 96 % Barrieramos [facility] RECORDS MANAGEMENT COORDINATOR.DIE CAST ENGINEER Work Phone: [facility] 03-26-2023 17:45-0500 Systolic blood pressure 138 mm[Hg] [facility]rie [facility] RECORDS MANAGEMENT COORDINATOR.DIE CAST ENGINEER Work Phone: [facility] 01-08-2023 10:26-0400 Body weight 76.57 kg Chrissie De Jesus MD Work Phone: [facility] 01-08-2023 10:26-0400 Diastolic blood pressure 76 mm[Hg] Chrissie De Jesus MD Work Phone: [facility] 01-08-2023 10:26-0400 Systolic blood pressure 120 mm[Hg] Chrissie De Jesus MD Work Phone: [facility] 12-31-2022 13:52-0400 Body weight 78.2 kg Terri Savanna RECORDS MANAGEMENT COORDINATOR.DIE CAST ENGINEER Work Phone: [facility] 12-31-2022 13:52-0400 Diastolic blood pressure 76 mm[Hg] Terri Savanna RECORDS MANAGEMENT COORDINATOR.DIE CAST ENGINEER Work Phone: [facility] 12-31-2022 13:52-0400 Systolic blood pressure 136 mm[Hg] Terri Kasie RECORDS MANAGEMENT COORDINATOR.DIE CAST ENGINEER Work Phone: [facility] 05-28-2022 08:35-0500 Body mass index (BMI) [Ratio] 25.2 kg/m2 Dr. Odin Abraham Work Phone: [facility] 05-28-2022 08:35-0500 Body temperature 98 [degF] Dr. Odin Abraham Work Phone: [facility] 05-28-2022 08:35-0500 Body weight 79.[address] Odin Abraham Work Phone: [facility] 05-28-2022 08:35-0500 Diastolic blood pressure 76 mm[Hg] Dr. Odin Abraham Work Phone: [facility] 05-28-2022 08:35-0500 Heart rate 76 /min Dr. Odin Abraham Work Phone: [facility] 05-28-2022 08:35-0500 Respiratory rate 18 /min Dr. Odin Abraham Work Phone: [facility] 05-28-2022 08:35-0500 SaO2% (BldA) [Mass fraction] 96 % Dr. Odin Abraham Work Phone: [facility] 05-28-2022 08:35-0500 Systolic blood pressure 122 mm[Hg] Dr. Odin Abraham Work Phone: [facility] Encounters Encounter Date Encounter Type Care Provider Facility Start: 10-26-2024 End: 10-26-2024 Patient encounter procedure Catie Flores RUBEN.DIE CAST ENGINEER Work Phone: [facility] Comment on above: Redness of skin (E[place] reese Dx) Start: 10-26-2024 End: 10-26-2024 ambulatory ODIN ABRAHAM Facility:[facility] Start: 04-18-2024 End: 04-18-2024 ambulatory [facility] Start: 04-14-2024 End: 04-14-2024 ambulatory ODIN ABRAHAM Facility:[facility] Start: 04-14-2024 End: 04-14-2024 Patient encounter procedure Tucker Devlin APRN.DIE CAST ENGINEER Work Phone: [facility] Comment on above: Sore throat (Primary Dx) Start: 03-17-2024 End: 03-17-2024 ambulatory [place]in [place] Facility:[facility] Start: 10-07-2023 End: 10-07-2023 Patient encounter procedure Tucker Devlin APRN.DIE CAST ENGINEER Work Phone: [facility] Comment on above: Sore throat (Primary Dx) Start: 09-27-2023 End: 09-27-2023 ambulatory [place]in [place] Facility:[facility] Start: 09-05-2023 End: 09-05-2023 ambulatory Odin [place] Facility:[facility] Start: 08-12-2023 End: 08-12-2023 ambulatory [facility] Start: 08-07-2023 End: 08-07-2023 Patient encounter procedure Vicki Michael APRN.DIE CAST ENGINEER Work Phone: [facility] Comment on above: Sore throat (Primary Dx) Start: 05-05-2023 End: 05-05-2023 Patient encounter procedure Antonette MATUTE Work Phone: [facility] Comment on above: URI, acute (Primary Dx); Bacterial sinusitis Start: 03-27-2023 Telephone encounter Delmis solis PA-C Work Phone: [facility] Comment on above: Results Start: 03-26-2023 End: 03-26-2023 Office outpatient visit 15 minutes Barrie Martinez APRN.DIE CAST ENGINEER Work Phone: [facility] Comment on above: Viral illness (Prima ry Dx) Start: 01-08-2023 End: 01-08-2023 Patient encounter procedure Chrissie De Jesus MD Work Phone: OB/Gynecology Comment on above: Encounter for IUD in sertion (Primary Dx); Screen for STD (sexually transmitted disease) Start: 12-31-2022 End: 12-31-2022 Patient encounter procedure Terri Ferro APRN.DIE CAST ENGINEER Work Phone: OB/Gynecology Comment on above: Encounter for survei llance of contraceptive pills (Primary Dx); Encounter for IUD insertion Start: 08-09-2022 End: 08-09-[address] Odin Abraham Work Phone: [facility] Work Phone: Start: 08-09-2022 End: 08-09-[address] Odin Abraham Work Phone: [facility] Start: 05-28-2022 End: 05-28-[address] Odin Abraham Work Phone: [facility] Start: 01-16-2021 End: 01-16-2021 Patient encounter status Cheyenne Bautista APRN DIE CAST ENGINEER Work Phone: [facility] Start: 01-16-2021 End: 01-16-2021 Subsequent hospital visit by physician Cheyenne Bautista APRN DIE CAST ENGINEER Work Phone: [facility] Comment on above: Encounter for gyneco logical examination without abnormal finding; Screen for STD (sexually transmitted disease); High risk heterosexual behavior Start: 01-04-2020 End: 01-04-2020 Subsequent hospital visit by physician Virginia Vidal Work Phone: [facility] Start: 09-14-2019 End: 09-14-2019 Subsequent hospital visit by physician Estuardo Anna Work Phone: [facility] Comment on above: Arrived Procedures Date Procedure Procedure Detail Performing Clinician Start: 04-14-2024 STREP A MOLECULAR (POC) Delmis Sparks PA-C Work Phone: Start: 10-07-2023 STREP A MOLECULAR (POC) Tucker Devlin APRN.DIE CAST ENGINEER Work Phone: Start: 08-07-2023 STREP A MOLECULAR (POC) [facility] Provider Start: 03-26-2023 COVID & INFLUENZA A/ B & RSV NAAT, ROUTINE Barrie Martinez APRN.DIE CAST ENGINEER Work Phone: Start: 03-26-2023 Iadna respiratry pro be & rev trnscr 3-5 targets Barrie Martinez RECORDS MANAGEMENT COORDINATOR.DIE CAST ENGINEER Work Phone: Start: 03-26-2023 Sars-cov-2 detection by dna/rna Barrie Martinez RECORDS MANAGEMENT COORDINATOR.DIE CAST ENGINEER Work Phone: Start: 01-08-2023 Urine test visual color cmprsn davids Chrissie De Jesus MD Work Phone: Start: 01-16-2021 Adult depression scr eening assessment Cheyennemaritza Bautista RECORDS MANAGEMENT COORDINATOR DIE CAST ENGINEER Work Phone: Start: 01-04-2020 Adult depression scr eening assessment Virginia Vidal Start: 01-04-2020 Microscopic observat ion [Identifier] in Cervix by Cyto stain Virginia Vidal Start: 09-14-2019 Acute hepatitis panel S bert Anna Work Phone: Start: 09-14-2019 Antibody treponema pallidum Estuardo Wilfrido Work Phone: Start: 09-14-2019 Blood count complete automated Estuardo Wilfrido Work Phone: Start: 09-14-2019 Chlamydia trachomatis+Neisseria gonorrhoeae rRNA [Presence] in Cervix by Probe Estuardo Anna Work Phone: Start: 09-14-2019 Comprehensive metabo lic panel Estuardorajendra Anna Work Phone: Start: 09-14-2019 GLOMERULAR FILTRATION RATE Estuardorajendra Anna Work Phone: Start: 09-14-2019 Iaad ia hiv-1 ag w/h iv-1 & hiv-2 antbdy single Estuardorajendra Anna Work Phone: Plan of Treatment Date Care Activity Detail Author Start: 09-29-2027 HPV TESTING HPV TESTING [facility] Start: 09-29-2027 PAP TESTING PAP TESTING [facility] Start: 09-29-2027 Screening for malign ant neoplasm of cervix [facility] Start: 01-18-2025 Influenza vaccination Influenz a Vaccine (Season Ended) [facility] Start: 01-03-2025 Screening for malign ant neoplasm of cervix PAP SMEAR [facility] Start: 01-19-2024 Covid-19 Vaccine () Covid-19 Vaccine () [facility] Start: 01-19-2024 Influenza vaccination C [facility] Start: 09-29-2023 Screening for malign ant neoplasm of cervix Cervical Cancer Screening [facility] Start: 05-20-2023 Behavioral Health Screening Behavioral Health Screening [facility] Start: 05-20-2023 [facility] Start: 01-18-2023 Covid-19 Vaccine () Covid-19 Vaccine () [facility] Start: 01-18-2023 Influenza vaccination C [facility] Start: 01-03-2023 Human papilloma viru s screening PAP SMEAR [facility] Start: 05-28-2022 Patient referral [facility] Work Phone: Start: 05-20-2022 DEPRESSION ASSESSMENT DEPRESSION ASS ESSMENT [facility] Start: 01-29-2022 End: 01-29-2022 Patient encounter procedure 01/29/2022 Office Visit Obstetrics and Gynecology Cheyenne Bautista APRN [facility] [place], [place] [id number] [facility] Start: 01-17-2022 ANNUAL WELLNESS VISIT [facility] Start: 01-16-2022 Depression screening using PHQ-9 (Patient Health Questionnaire 9) score DEPRESSION SCREENING [facility] Start: 04-19-2021 End: 04-19-2021 Patient encounter procedure 04/19/2021 Office Visit Family Medicine Roxie Howell PA-C [address] [place] [address] [facility] [address] [facility] Start: 02-08-2021 End: 02-08-2021 Telemedicine consultation with patient 02/08/2021 Telemedicine Behavioral Health Richie Monk PA [address] [place] [address] [facility] Start: 01-30-2021 End: 01-30-2021 Clinical Support 01/30/2021 Clinical Support Obstetrics and Gynecology Cheyenne Bautista APRN DIE CAST ENGINEER [address] [place] [address] [facility] Start: 01-18-2021 Influenza vaccinatio n given INFLUENZA VACCINE (#1) [facility] Start: 01-09-2021 End: 01-09-2021 Office Visit 01/09/2021 Office Visit Obstetrics and Gynecology Virginia Vidal APRN DIE CAST ENGINEER [address] [place] [address] [phone] [facility] Start: 01-03-2021 Adult depression screening assessment DEPRESSION SCREENING [facility] Start: 11-25-2020 ANNUAL WELLNESS VISIT ANNUAL WELLNES S VISIT [facility] Start: 01-26-2020 End: 01-26-2020 Office Visit 01/26/2020 Office Visit Family Medicine Roxie Howell PA-C [address] [place] [address] [phone] [facility] [address] [facility] Start: 01-19-2020 Influenza vaccinatio n given INFLUENZA VACCINE (#1) [facility] Start: 01-18-2019 Influenza vaccinatio n given INFLUENZA VACCINE (#1) [facility] Start: 2011 Human papilloma viru s screening PAP SMEAR [facility] Start: 2011 Tetanus, diphtheria and acellular pertussis vaccination TDAP/TD ADULT [facility] Start: 2009 Hepatitis B Vaccine (1 of 3 - 19+ 3-dose series) Hepatitis B Vaccine (1 of 3 - 19+ 3-dose series) [facility] Start: 2009 Urine microalbumin profile [facility] Start: 02-16-2008 ANNUAL WELLNESS VISIT ANNUAL WELLNES S VISIT [facility] Start: 02-16-2008 Depression Screening Depression Scre ening [facility] Start: 02-16-2008 HEPATITIS C SCREENING HEPATITIS C [facility] Start: 02-16-2008 Hepatitis C screening Hepatitis C [facility] Start: 02-16-2008 HIV SCREENING HIV SCREENING [facility] Start: 02-16-2008 HIV screening HIV Screening [facility] Start: 2002 Adult depression screening assessment DEPRESSION SCREENING [facility] Start: 2001 Diphtheria + pertuss is + tetanus vaccine (product) DTAP/TDAP/TD VACCINE (1 - Tdap) [facility] Start: 1990 COVID-19 VACCINE (#1) COVID-19 VACCI NE (#1) [facility] Start: 1990 HEPATITIS B (1 of 3 - 3-dose series) HEPATITIS B (1 of 3 - 3-dose series) [facility] Start: 1990 Hepatitis B Vaccine (1 of 3 - 3-dose series) Hepatitis B Vaccine (1 of 3 - 3-dose series) [facility] Chlamydia trachomatis+Neisseria gonorrhoeae DNA [Presence] in Unspecified specimen by KATELYNN with probe detection GONORRHEA/CHLAMYDIA NAAT Lab Routine Screen for STD (sexually transmitted disease) 01/08/2023 10:58 AM T [facility] Work Phone: Chlamydia trachomatis+Neisseria gonorrhoeae rRNA [Presence] in Cervix by Probe GC & CHLAMYDIA AMPLIFIED PROBE Microbiology Routine 09/14/2019 10:44 AM EDT [facility] End: 01-17-2021 Chlamydia trachomatis+Neisseria gonorrhoeae rRNA [Presence] in Cervix by Probe [facility] Comment on above: 1 Occurrences starti ng 01/17/2021 until 01/17/2021 COVID & INFLUENZA A/ B & RSV NAAT, ROUTINE COVID & INFLUENZA A/B & RSV NAAT, ROUTINE Microbiology Routine URI, acute 05/05/2023 3:31 PM EST [facility] Work Phone: End: 01-17-2021 Human papilloma virus DNA [Presence] in Unspecified specimen by Probe with amplification [facility] Work Phone: Comment on above: 1 Occurrences starti ng 01/17/2021 until 01/17/2021 Insertion intrauteri ne device iud INSERT INTRAUTERINE DEVICE Procedures Routine Encounter for IUD insertion Ordered: 12/31/2022 [facility] Work Phone: Comment on above: Ordered: 12/31/2022 Insertion intrauteri ne device iud INSERT INTRAUTERINE DEVICE Procedures Routine Encounter for IUD insertion Ordered: 01/08/2023 [facility] Work Phone: Comment on above: Ordered: 01/08/2023 End: 01-17-2021 Microscopic observation [Identifier] in Cervix by Cyto stain [facility] Comment on above: 1 Occurrences starti ng 01/17/2021 until 01/17/2021 Patient referral [facility] Work Phone: Tobacco use cessatio n education [facility] End: 01-17-2021 Trichomonas Amplified Probe [facility] Comment on above: 1 Occurrences starti ng 01/17/2021 until 01/17/2021 TRICHOMONAS VAGINALI S NAAT TRICHOMONAS VAGINALIS NAAT Lab Routine Screen for STD (sexually transmitted disease) 01/08/2023 10:58 AM EDT [facility] Work Phone: [facility] Payers Date Payer Category Payer Self-pay [id number] 2023 Unknown [id number] 2022 Medicaid [id number] 1990 Unknown [id number] 1990 Unknown [id number] Medicaid [facility] xxxxxxxxxxxx Effective for all dates [phone] [address] [place] [address] Medicaid xxxxxxxxxxxx [id number] Medicaid [id number] Unknown [id number] Unknown [id number] Unknown [id number] Social History Date Type Detail Facility Start: 07-04-2017 End: 09-28-2022 Tobacco smoking status NHIS Never smoker [facility] Work Phone: Start: 07-04-2017 Alcohol intake Current drinke r of alcohol (finding) [facility] Start: 1990 Sex Assigned At Not on file G [facility] Start: 01-04-2020 End: 11-18-2019 Tobacco smoking status NHIS Current every day smoker [facility] End: 11-18-2019 History of tobacco use [facility] Start: 01-04-2020 End: 09-28-2022 Tobacco use and exposure Never used [facility] Start: 01-04-2020 End: 10-26-2024 Alcohol intake Ex-drinker (finding) [facility] Exposure to SARS-CoV -2 (event) Not sure [facility] Start: 01-11-2021 History SDOH Social Connections Membership 2 [facility] Start: 01-11-2021 History SDOH Financial 5 [facility] Start: 01-11-2021 History SDOH Food Worry 1 [facility] Start: 06-18-2022 Tobacco smoking stat us AZIS Unknown if ever smoked [facility] Start: 1990 Sex Assigned At Female W [facility] Start: 09-28-2022 End: 12-31-2022 History of Social function [facility] Start: 09-28-2022 End: 12-31-2022 Tobacco use panel [facility] National Score (1-100), lower number is lower risk 50 [facility] Start: 09-28-2022 Education 13 [facility] Start: 09-28-2022 Tobacco Comment Pt vapes [facility] Start: 09-28-2022 Alcohol Comment sober 15 mos [facility] Start: 05-05-2023 Gender identity Identifies as female gender (finding) [facility] NEGATED: Highlighted rowStart: BARRETTF History of tobacco use Passive smoker [facility] Work Phone: Clinical Notes 12-31-2022 to 10-26-2024 Patient InstructionsCatie Flores APRN.CNP - 10/26/2024 7:11 PM EDTTucker Devlin APRN.CNP - 04/14/2024 5:05 PM ESTTucker Devlin APRN.CNP - 10/07/2023 4:40 PM EDTPatient Instructions Note Date & Type Note Facility 10-26-2024 Instructions Catie Flores APRN.CNP - 10/26/2024 7:31 PM EDT -Clean with soap and water -Tylenol or Ibuprofen for discomfort -Observe for worsening - redness, warmth, foul odor, drainage or increase in discomfort or fever - to ER if occurs documented in this encounter [facility] 10-26-2024 Note HNO ID: [id number] Author: CATIE FLORES APRN.CNP Service: ? Author Type: Nurse Practitioner Type: Progress Notes Filed: 10/26/2024 19:31 Note Text: Subjective The history is provided by the patient. No english as a second language instructor was used. MARY LOU Arreguin is a 34 year old female who presents today for CC of left forearm swelling and redness. Patient admits to being an IV drug user and thinks she has an infection. She has redness and swelling in lower forearm, tender to touch. She denies any fever or purulent drainage. She has not used any medication or treatment. BP 132/82 Pulse 101 Temp 36.4 ?C (97.6 ?F) (Tympanic) Resp 18 Wt 70.6 kg (155 lb 10.3 oz) LMP 12/23/2022 SpO2 99% BMI 23.15 kg/m? Social History Tobacco Use Smoking status: Never Passive exposure: Never Smokeless tobacco: Never Tobacco comments: Pt vapes Vaping Use Vaping status: current everyday user Substances: Nicotine Substance Use Topics Alcohol use: Not Currently Comment: sober 15 mos Drug use: Not Currently Types: Heroin Comment: pt has been in recovery for 15 mos PAST MEDICAL HISTORY Diagnosis Date Alcohol dependence (HCC) has been sober for 15 mos Anxiety and depression Drug dependency (HCC) has been clean for 15 mos I have confirmed and edited as necessary, the [facility] Review of Systems Constitutional: Negative for chills and fever. Musculoskeletal: Negative for joint pain and myalgias. Skin: Negative for itching and rash. Redness and tenderness of skin, left forearm All other systems reviewed and are negative. Objective Physical Exam Vitals and nursing note reviewed. Pulmonary: Effort: Pulmonary effort is normal. Skin: General: Skin is warm and dry. Findings: Erythema present. Comments: Tender to touch Neurological: Mental Status: She is alert and oriented to person, place, and time. Psychiatric: Mood and Affect: Affect normal. History and Record Review External record(s) reviewed: prior labs/imaging, prior outpatient record and prior inpatient record. Findings from review of inpatient records: none available Findings from review of prior labs/imaging: Previous Renal Function Panel Reviewed No results within last 365 days. ASSESSMENT/PLAN: 1. Redness of skin - ICD9: 695.9, ICD10: L53.9 Appears to be an infection Keflex as ordered Monitor for worsening symptoms, when to see a higher level of care discussed. - CEPHALEXIN 500 MG CAPSULE Diagnosis and treatment plan were discussed and questions were answered to the patient's satisfaction. Pt acknowledged understanding of concepts and follow up plan. Specific signs and symptoms that would indicate the need for higher level of care were discussed in detail warranting prompt ER evaluation. Catie Flores APRN.[facility] 10-26-2024 History of Presen t illness Narrative Images from the original note were not included. Subjective The history is provided by the patient. No english as a second language instructor was used. HPI Christa Arreguin is a 34 year old female who presents today for CC of left forearm swelling and redness. Patient admits to being an IV drug user and thinks she has an infection. She has redness and swelling in lower forearm, tender to touch. She denies any fever or purulent drainage. She has not used any medication or treatment. BP 132/82 Pulse 101 Temp 36.4 C (97.6 F) (Tympanic) Resp 18 Wt 70.6 kg (155 lb 10.3 oz) LMP 12/23/2022 SpO2 99% BMI 23.15 kg/m Social History Tobacco Use Smoking status: Never Passive exposure: Never Smokeless tobacco: Never Tobacco comments: Pt vapes Vaping Use Vaping status: current everyday user Substances: Nicotine Substance Use Topics Alcohol use: Not Currently Comment: sober 15 mos Drug use: Not Currently Types: Heroin Comment: pt has been in recovery for 15 mos PAST MEDICAL HISTORY Diagnosis Date Alcohol dependence (HCC) has been sober for 15 mos Anxiety and depression Drug dependency (HCC) has been clean for 15 mos I have confirmed and edited as necessary, the [facility] Review of Systems Constitutional: Negative for chills and fever. Musculoskeletal: Negative for joint pain and myalgias. Skin: Negative for itching and rash. Redness and tenderness of skin, left forearm All other systems reviewed and are negative. Objective Physical Exam Vitals and nursing note reviewed. Pulmonary: Effort: Pulmonary effort is normal. Skin: General: Skin is warm and dry. Findings: Erythema present. Comments: Tender to touch Neurological: Mental Status: She is alert and oriented to person, place, and time. Psychiatric: Mood and Affect: Affect normal. History and Record Review External record(s) reviewed: prior labs/imaging, prior outpatient record and prior inpatient record. Findings from review of inpatient records: none available Findings from review of prior labs/imaging: Previous Renal Function Panel Reviewed No results within last 365 days. ASSESSMENT/PLAN: 1. Redness of skin - ICD9: 695.9, ICD10: L53.9 Appears to be an infection Keflex as ordered Monitor for worsening symptoms, when to see a higher level of care discussed. - CEPHALEXIN 500 MG CAPSULE Diagnosis and treatment plan were discussed and questions were answered to the patient's satisfaction. Pt acknowledged understanding of concepts and follow up plan. Specific signs and symptoms that would indicate the need for higher level of care were discussed in detail warranting prompt ER evaluation. Catie Flores APRN.LON documented in this encounter [facility] 04-14-2024 Note HNO ID: [id number] Author: TUCKER DEVLIN APRN.DIE CAST ENGINEER Service: ? Author Type: Nurse Practitioner Type: Progress Notes Filed: 04/14/2024 17:21 Note Text: Subjective HPI HPI Christa Arreguin is a 34 year old female who presents today for CC of st, fatigue, ear muffled. This started 4 days ago. Has tried otc medication for relief. Symptoms are worsened by nothing. Risk factors smoker. Denies possibility of being . .Patient presents with: Sore Throat: Fatigue, bilateral ear pressure and muffled hearing x4 days, strep exposure PAST MEDICAL HISTORY Diagnosis Date Alcohol dependence (HCC) has been sober for 15 mos Anxiety and depression Drug dependency (HCC) has been clean for 15 mos PAST SURGICAL HISTORY Procedure Laterality Date PAST SURGICAL HISTORY OF extraction of wisdom teeth PAST SURGICAL HISTORY OF Right removal of cyst on right wrist ALLERGIES Patient has no known allergies. MEDICATIONS levonorgestrel (MIRENA) 21 mcg/24 hours (8 yrs) 52 mg IUD 1 Each by INTRAUTERINE route as directed. buPROPion (WELLBUTRIN) 100 mg tablet Take 100 mg by mouth. mirtazapine (REMERON) 15 mg tablet Take 15 mg by mouth. QUEtiapine (SEROQUEL) 100 mg tablet Take 100 mg by mouth. naltrexone ER (VIVITROL) 380 mg injection Inject intramuscularly. (Patient not taking: Reported on 08/07/2023) FAMILY HISTORY Problem Relation Age of Onset No Known Problems Mother Heart Attack Father x2 had stent placement Hypertension Father No Known Problems Brother No Known Problems Brother Social History Tobacco Use Smoking status: Never Passive exposure: Never Smokeless tobacco: Never Tobacco comments: Pt vapes Vaping Use Vaping status: current everyday user Substances: Nicotine Substance Use Topics Alcohol use: Not Currently Comment: sober 15 mos Drug use: Not Currently Types: Heroin Comment: pt has been in recovery for 15 mos Review of Systems Constitutional: Positive for malaise/fatigue. Negative for fever. HENT: Positive for congestion, ear pain and sore throat. Negative for ear discharge and nosebleeds. Respiratory: Negative for cough, shortness of breath and wheezing. Musculoskeletal: Negative for neck pain. Skin: Negative for itching and rash. Objective Blood pressure 129/84, pulse 96, temperature 36.7 ?C (98.1 ?F), resp. rate 18, weight 83.8 kg (184 lb 11.9 oz), last menstrual period 12/23/2022, SpO2 100%. Physical Exam Constitutional: General: She is not in acute distress. Appearance: She is not toxic-appearing or diaphoretic. HENT: Head: Normocephalic and atraumatic. Right Ear: Hearing, tympanic membrane, ear canal and external ear normal. A PE tube is present. Left Ear: Hearing, tympanic membrane, ear canal and external ear normal. Nose: Nose normal. Mouth/Throat: Pharynx: Uvula midline. No pharyngeal swelling, oropharyngeal exudate, posterior oropharyngeal erythema or uvula swelling. Eyes: General: Lids are normal. No scleral icterus. Right eye: No discharge. Left eye: No discharge. Conjunctiva/sclera: Conjunctivae normal. Pupils: Pupils are equal, round, and reactive to light. Neck: Trachea: Trachea normal. Cardiovascular: Rate and Rhythm: Normal rate and regular rhythm. Heart sounds: Normal heart sounds. Pulmonary: Effort: Pulmonary effort is normal. Breath sounds: Normal breath sounds. Musculoskeletal: Cervical back: Normal range of motion and neck supple. Lymphadenopathy: Cervical: No cervical adenopathy. Right cervical: No superficial cervical adenopathy. Left cervical: No superficial cervical adenopathy. Skin: Findings: No rash. Neurological: Mental Status: She is alert and oriented to person, place, and time. ASSESSMENT/PLAN: 1. Sore throat - ICD9: 462, ICD10: J02.9 - suspect viral - Group A strep molecular testing negative - Discussed supportive care treatment with fluids, rest and analgesia. - Contagious dz precautions discussed- including considered contagious until on antibiotics for 24 hours - STREP A MOLECULAR (POC) - PREDNISONE 20 MG TABLET - FLUTICASONE PROPIONATE 50 MCG/ACTUATION NASAL SPRAY,SUSPENSION Tucker Devlin APRN.[facility] 04-14-2024 History of Presen t illness Narrative Subjective HPI HPI Christa Arreguin is a 34 year old female who presents today for CC of st, fatigue, ear muffled. This started 4 days ago. Has tried otc medication for relief. Symptoms are worsened by nothing. Risk factors smoker. Denies possibility of being . .Patient presents with: Sore Throat: Fatigue, bilateral ear pressure and muffled hearing x4 days, strep exposure PAST MEDICAL HISTORY Diagnosis Date Alcohol dependence (HCC) has been sober for 15 mos Anxiety and depression Drug dependency (HCC) has been clean for 15 mos PAST SURGICAL HISTORY Procedure Laterality Date PAST SURGICAL HISTORY OF extraction of wisdom teeth PAST SURGICAL HISTORY OF Right removal of cyst on right wrist ALLERGIES Patient has no known allergies. MEDICATIONS levonorgestrel (MIRENA) 21 mcg/24 hours (8 yrs) 52 mg IUD 1 Each by INTRAUTERINE route as directed. buPROPion (WELLBUTRIN) 100 mg tablet Take 100 mg by mouth. mirtazapine (REMERON) 15 mg tablet Take 15 mg by mouth. QUEtiapine (SEROQUEL) 100 mg tablet Take 100 mg by mouth. naltrexone ER (VIVITROL) 380 mg injection Inject intramuscularly. (Patient not taking: Reported on 08/07/2023) FAMILY HISTORY Problem Relation Age of Onset No Known Problems Mother Heart Attack Father x2 had stent placement Hypertension Father No Known Problems Brother No Known Problems Brother Social History Tobacco Use Smoking status: Never Passive exposure: Never Smokeless tobacco: Never Tobacco comments: Pt vapes Vaping Use Vaping status: current everyday user Substances: Nicotine Substance Use Topics Alcohol use: Not Currently Comment: sober 15 mos Drug use: Not Currently Types: Heroin Comment: pt has been in recovery for 15 mos Review of Systems Constitutional: Positive for malaise/fatigue. Negative for fever. HENT: Positive for congestion, ear pain and sore throat. Negative for ear discharge and nosebleeds. Respiratory: Negative for cough, shortness of breath and wheezing. Musculoskeletal: Negative for neck pain. Skin: Negative for itching and rash. Objective Blood pressure 129/84, pulse 96, temperature 36.7 C (98.1 F), resp. rate 18, weight 83.8 kg (184 lb 11.9 oz), last menstrual period 12/23/2022, SpO2 100%. Physical Exam Constitutional: General: She is not in acute distress. Appearance: She is not toxic-appearing or diaphoretic. HENT: Head: Normocephalic and atraumatic. Right Ear: Hearing, tympanic membrane, ear canal and external ear normal. A PE tube is present. Left Ear: Hearing, tympanic membrane, ear canal and external ear normal. Nose: Nose normal. Mouth/Throat: Pharynx: Uvula midline. No pharyngeal swelling, oropharyngeal exudate, posterior oropharyngeal erythema or uvula swelling. Eyes: General: Lids are normal. No scleral icterus. Right eye: No discharge. Left eye: No discharge. Conjunctiva/sclera: Conjunctivae normal. Pupils: Pupils are equal, round, and reactive to light. Neck: Trachea: Trachea normal. Cardiovascular: Rate and Rhythm: Normal rate and regular rhythm. Heart sounds: Normal heart sounds. Pulmonary: Effort: Pulmonary effort is normal. Breath sounds: Normal breath sounds. Musculoskeletal: Cervical back: Normal range of motion and neck supple. Lymphadenopathy: Cervical: No cervical adenopathy. Right cervical: No superficial cervical adenopathy. Left cervical: No superficial cervical adenopathy. Skin: Findings: No rash. Neurological: Mental Status: She is alert and oriented to person, place, and time. ASSESSMENT/PLAN: 1. Sore throat - ICD9: 462, ICD10: J02.9 - suspect viral - Group A strep molecular testing negative - Discussed supportive care treatment with fluids, rest and analgesia. - Contagious dz precautions discussed- including considered contagious until on antibiotics for 24 hours - STREP A MOLECULAR (POC) - PREDNISONE 20 MG TABLET - FLUTICASONE PROPIONATE 50 MCG/ACTUATION NASAL SPRAY,SUSPENSION Tucker Devlin APRN.DIE CAST ENGINEER documented in this encounter [facility] 10-07-2023 History of Presen t illness Narrative Subjective HPI HPI Christa Arreguin is a 33 year old female who presents today for CC of cough, st, fatigue. This started 4-5 days ago. Has tried otc medication for relief. Symptoms are worsened by nothing. Risk factors sick exposures at work. Denies possibility of being . smoker. .Patient presents with: Sore Throat: ST, drainage and fatigue x 4-5 days PAST MEDICAL HISTORY Diagnosis Date Alcohol dependence (HCC) has been sober for 15 mos Anxiety and depression Drug dependency (HCC) has been clean for 15 mos PAST SURGICAL HISTORY Procedure Laterality Date PAST SURGICAL HISTORY OF extraction of wisdom teeth PAST SURGICAL HISTORY OF Right removal of cyst on right wrist ALLERGIES Patient has no known allergies. MEDICATIONS levonorgestrel (MIRENA) 21 mcg/24 hours (8 yrs) 52 mg IUD 1 Each by INTRAUTERINE route as directed. buPROPion (WELLBUTRIN) 100 mg tablet Take 100 mg by mouth. mirtazapine (REMERON) 15 mg tablet Take 15 mg by mouth. QUEtiapine (SEROQUEL) 100 mg tablet Take 100 mg by mouth. naltrexone ER (VIVITROL) 380 mg injection Inject intramuscularly. (Patient not taking: Reported on 08/07/2023) FAMILY HISTORY Problem Relation Age of Onset No Known Problems Mother Heart Attack Father x2 had stent placement Hypertension Father No Known Problems Brother No Known Problems Brother Social History Tobacco Use Smoking status: Never Passive exposure: Never Smokeless tobacco: Never Tobacco comments: Pt vapes Vaping Use Vaping Use: current everyday user Substances: Nicotine Substance Use Topics Alcohol use: Not Currently Comment: sober 15 mos Drug use: Not Currently Types: Heroin Comment: pt has been in recovery for 15 mos Review of Systems Constitutional: Positive for malaise/fatigue. Negative for fever. HENT: Positive for congestion and sore throat. Negative for ear pain and nosebleeds. Respiratory: Positive for cough. Negative for shortness of breath and wheezing. Musculoskeletal: Negative for neck pain. Skin: Negative for itching and rash. Objective Blood pressure 122/80, pulse 98, temperature 37.2 C (99 F), temperature source Tympanic, resp. rate 18, weight 81.7 kg (180 lb 1.9 oz), last menstrual period 12/23/2022, SpO2 99%. Physical Exam Constitutional: General: She is not in acute distress. Appearance: She is not toxic-appearing or diaphoretic. HENT: Head: Normocephalic and atraumatic. Right Ear: Hearing, tympanic membrane, ear canal and external ear normal. Left Ear: Hearing, tympanic membrane, ear canal and external ear normal. Nose: Nose normal. Mouth/Throat: Pharynx: Uvula midline. No pharyngeal swelling, oropharyngeal exudate, posterior oropharyngeal erythema or uvula swelling. Eyes: General: Lids are normal. No scleral icterus. Right eye: No discharge. Left eye: No discharge. Conjunctiva/sclera: Conjunctivae normal. Pupils: Pupils are equal, round, and reactive to light. Neck: Trachea: Trachea normal. Cardiovascular: Rate and Rhythm: Normal rate and regular rhythm. Heart sounds: Normal heart sounds. Pulmonary: Effort: Pulmonary effort is normal. Breath sounds: Normal breath sounds. Musculoskeletal: Cervical back: Normal range of motion and neck supple. Lymphadenopathy: Cervical: Cervical adenopathy present. Right cervical: Superficial cervical adenopathy present. Left cervical: Superficial cervical adenopathy present. Skin: Findings: No rash. Neurological: Mental Status: She is alert and oriented to person, place, and time. ASSESSMENT/PLAN: 1. Sore throat - ICD9: 462, ICD10: J02.9 - suspect viral - Group A strep molecular testing negative - Discussed supportive care treatment with fluids, rest and analgesia. - The patient should follow up in 3-5 days if symptoms persist or worsen - STREP A MOLECULAR (POC) - PREDNISONE 20 MG TABLET Tucker Devlin APRN.CNP documented in this encounter [facility] 08-07-2023 Instructions Vicki Michael APRN.CNP - 08/07/2023 5:49 PM EDT ASSESSMENT/PLAN: 1. Sore throat - ICD9: 462, ICD10: J02.9 - suspect viral - Group A strep molecular testing negative - Discussed supportive care treatment with fluids, rest and analgesia. - Follow-up with your PCP in 3-5 days if symptoms have not improved or sooner if symptoms worsen - Discussed red flags and need for immediate medical evaluation if any occur. - Discussed supportive care treatment with fluids, rest and analgesia. - Discussed expected course of illness Vicki Michael APRN.CNP SORE THROAT INSTRUCTIONS SORE THROAT OVERVIEW - Sore throat is a common problem during childhood, and is usually the result of a bacterial or viral infection. Although sore throat usually resolves without complications, it sometimes requires treatment with an antibiotic. There are some less common causes of sore throat that are serious or even life-threatening. This topic will discuss the most common causes and treatments of sore throat in children, as well as the warning signs of more serious conditions. SORE THROAT CAUSES - The most likely cause of a child's sore throat depends upon the child's age, the season, and the geographic area. While viruses are the most common cause of sore throat, bacteria are another common cause. Bacteria and viruses are spread from one person to another through hand contact. Hands get contaminated when the sick individual touches their nose or mouth and then touches another person directly (hadm-[id number] contact) or indirectly (cyzz-uk-avdhlo, such as doorknob, telephone, toys). It is difficult to determine the cause of sore throat based upon symptoms alone; an examination and laboratory test are recommended in most cases Viruses - There are many viruses that can cause pain and swelling of the throat. The most common include viruses that cause sore throat as part of an upper respiratory infection, such as the common cold. Other viruses that cause sore throat include influenza, adenovirus, and Rickey-Blount virus (the cause of mononucleosis). Symptoms - Symptoms that may occur with a viral infection can include a runny nose and congestion, irritation or redness of the eyes, cough, hoarseness, soreness in the roof of the mouth, a skin rash, or diarrhea. In addition, children with viral infections may have a fever and may feel miserable. A high fever does not necessarily mean that the child has a bacterial infection. Group A streptococcus - Group A streptococcus (GAS) is the name of the bacterium that causes strep throat. Although other bacteria can cause a sore throat, GAS is the most common bacterial cause; up to 30 percent of children with a sore throat will have GAS. Strep throat usually occurs during the winter and early spring, and is most common in school-age children and their younger siblings. Symptoms - Symptoms of strep throat in children older than 3 years often develop suddenly and include fever (temperature ?100.4 F or 38 C), headache, abdominal pain, nausea, and vomiting. Other symptoms can include swollen glands in the neck, white patches of pus in the back or sides of the throat, small red spots on the roof of the mouth, and swelling of the uvula. A cough and cold are not commonly seen in children with strep throat. Strep throat is uncommon in children younger than age 2 to 3 years. However, GAS infection can occur in younger children, and may cause a runny nose and congestion that is prolonged, low-grade fever (?101 F or 38.3 C), and tender glands in the neck. Infants younger than 1 year may be fussy and have a decreased appetite and low-grade fever. SORE THROAT TREATMENT - The treatment of sore throat depends upon the cause; strep throat is treated with an antibiotic while viral pharyngitis is treated with rest, pain relievers, and other measures to reduce symptoms. Strep throat - Strep throat is usually treated with an antibiotic, such as penicillin, or an antibiotic similar to penicillin (eg, amoxicillin). Children who are allergic to penicillin will be given an alternate antibiotic. The antibiotic is usually given in pill or liquid form two or three times per day. A one-time injection is also available, and may be recommended if a child is unwilling to take an oral medication. After completing 24 hours of antibiotics, the child is no longer contagious and may return to school. Symptoms usually improve within 1 to 2 days. However, it is important for the child to finish the entire course of treatment (usually 10 days). If a child does not begin to improve or worsens within 3 days, the child should be reevaluated. Throat pain can be treated with a non-prescription pain medication, if needed. (See 'Pain medications' below.) In addition, parents should monitor their child for dehydration, which can develop if the child is not willing to drink or eat due to a sore throat. (See 'Monitor for dehydration' below.) Viral throat pain - Sore throat caused by viral infections usually last 4 to 5 days. During this time, treatments to reduce pain may be helpful but will not help to eliminate the virus. Antibiotics do not improve throat pain caused by a virus and are not recommended. A child with a viral infection is usually allowed to return to school when there has been no fever for 24 hours and the child feels well enough to pay attention. Pain medications - Throat pain can be treated with a mild pain reliever such as acetaminophen (Tylenol ) or a non-steroidal anti-inflammatory agent such as ibuprofen (Motrin ). These medications should be dosed according to weight, not age. Aspirin is not recommended for children <18 years due to the risk of a potentially serious condition known as Ignacio syndrome. Monitor for dehydration - Some children with a sore throat are reluctant to drink or eat due to pain. Drinking less fluid can lead to dehydration. To reduce the risk of dehydration, parents can offer warm or cold liquids. (See 'Other interventions' below.) Signs and symptoms of mild dehydration include a slightly dry mouth, increased thirst, and decreased urine output (one wet diaper or void in six hours). Signs of moderate or severe dehydration include decreased urine output (less than one wet diaper or void in six hours), lack of tears when crying, dry mouth, and sunken eyes. A child who is moderately or severely dehydrated should be evaluated by a healthcare provider as soon as possible to determine if treatment is needed. Oral rinses- Salt-water gargles are an old stand-by for relief of throat pain. It is not clear if this treatment is effective, but it is unlikely to be harmful. Most recipes suggest 1/4 to 1/2 teaspoon of salt per cup (8 ounces) of warm water. The water should be gargled and then spit out (not swallowed). Children younger than six to eight years are not able to gargle properly. An oral rinse composed of equal parts of diphenhydramine (Benadryl liquid) and Maalox (magnesium hydroxide, aluminum hydroxide, and simethicone) may be helpful for pain caused by a sore mouth or ulcers in the mouth. Children older than six to eight years may swish and spit (not swallow) the mixture. Sprays - Sprays containing topical anesthetics are available to treat sore throat. However, such sprays are no more effective than sucking on hard candy. In addition, a common anesthetic ingredient, benzocaine, can cause allergic reactions. We do not recommend throat sprays for children. Lozenges - A variety of medicated throat lozenges are available to relieve dryness or pain. However, it is not clear that lozenges work any better than hard candy. We do not recommend throat lozenges for children, especially children younger than 3 to 4 years, who can choke. Sucking on hard candy may provide some relief for children older than 3 to 4 years, who are not at risk for choking. Other interventions - Other interventions include sipping warm beverages (eg, honey or lemon tea, chicken soup), cold beverages, or eating cold or frozen desserts (eg, ice cream, popsicles). These treatments are safe for children. Honey should not be given to children younger than 12 months due to the potential risk of botulism poisoning. Alternative therapies - Health food stores, vitamin outlets, and Internet Web sites offer alternative treatments for relief of sore throat pain. We do not recommend these treatments due to the risks of contamination with pesticides/herbicides, inaccurate labeling and dosing information, and a lack of studies showing that these treatments are safe and effective. SORE THROAT PREVENTION - Hand washing is an essential and highly effective way to prevent the spread of infection. Hands should be wet with water and plain soap, and rubbed together for 15 to 30 seconds. Special attention should be paid to the fingernails, between the fingers, and the wrists. Hands should be rinsed thoroughly, and dried with a single use towel. Alcohol-based hand rubs are a good alternative for disinfecting hands if a sink is not available. Hand rubs should be spread over the entire surface of hands, fingers, and wrists until dry, and may be used several times. These rubs can be used repeatedly without skin irritation or loss of effectiveness. Hand rubs are available as a liquid or wipe in small, portable sizes that are easy to carry in a pocket or handbag. When a sink is available, visibly soiled hands should be washed with soap and water. Hands should be washed after coughing, blowing the nose or sneezing. While it is not always possible to limit contact with a person who is sick, avoiding touching the eyes, nose, or mouth after direct contact can help to prevent the spread of infection. In addition, tissues should be used to cover the mouth when sneezing or coughing. These used tissues should be disposed of promptly. Sneezing/coughing into the sleeve of one's clothing (at the inner elbow) is another means of containing sprays of saliva and secretions and has the advantage of not contaminating the hands. WHEN TO SEEK HELP - Parents of a child with throat pain and one or more of the following should contact their healthcare provider immediately: Difficulty swallowing or breathing Excessive drooling in an infant or young child Temperature ?101 F or 38.3 C Swelling of the neck Child is unable or unwilling to drink or eat Voice sounds muffled Child has a stiff neck or difficulty opening the mouth WHERE TO GET MORE INFORMATION - Your child's healthcare provider is the best source of information for questions and concerns related to your child's medical problem. This article will be updated as needed every four months on our web site ([email or web address]). Information below was obtained from Up to date Last literature review version 19.2: September 2010 This topic last updated: January 04, 2010 documented in this encounter [facility] 08-07-2023 History of Presen t illness Narrative Subjective Sore Throat Pertinent negatives include no congestion, coughing, ear pain or vomiting. Christa Arreguin is a 33 year old female who presents with sore throat. Her daughter was diagnosed with strep today. She has not had a fever or any associated URI symptoms. Review of Systems Constitutional: Negative for chills and fever. HENT: Positive for sore throat. Negative for congestion and ear pain. Respiratory: Negative for cough. Cardiovascular: Negative. Gastrointestinal: Negative for nausea and vomiting. Neurological: Negative for tingling. BP 134/82 Pulse 105 Temp 36.8 C (98.2 F) Resp 20 Wt 82.8 kg (182 lb 8.7 oz) LMP 12/23/2022 SpO2 98% BMI 27.15 kg/m PAST MEDICAL HISTORY Diagnosis Date Alcohol dependence (HCC) has been sober for 15 mos Anxiety and depression Drug dependency (HCC) has been clean for 15 mos PAST SURGICAL HISTORY Procedure Laterality Date PAST SURGICAL HISTORY OF extraction of wisdom teeth PAST SURGICAL HISTORY OF Right removal of cyst on right wrist ALLERGIES Patient has no known allergies. MEDICATIONS levonorgestrel (MIRENA) 21 mcg/24 hours (8 yrs) 52 mg IUD 1 Each by INTRAUTERINE route as directed. buPROPion (WELLBUTRIN) 100 mg tablet Take 100 mg by mouth. mirtazapine (REMERON) 15 mg tablet Take 15 mg by mouth. QUEtiapine (SEROQUEL) 100 mg tablet Take 100 mg by mouth. naltrexone ER (VIVITROL) 380 mg injection Inject intramuscularly. (Patient not taking: Reported on 08/07/2023) FAMILY HISTORY Problem Relation Age of Onset No Known Problems Mother Heart Attack Father x2 had stent placement Hypertension Father No Known Problems Brother No Known Problems Brother Social History Tobacco Use Smoking status: Never Passive exposure: Never Smokeless tobacco: Never Tobacco comments: Pt vapes Vaping Use Vaping Use: current everyday user Substances: Nicotine Substance Use Topics Alcohol use: Not Currently Comment: sober 15 mos Drug use: Not Currently Types: Heroin Comment: pt has been in recovery for 15 mos Objective Physical Exam Vitals and nursing note reviewed. Constitutional: General: She is not in acute distress. Appearance: Normal appearance. She is not ill-appearing. HENT: Right Ear: Tympanic membrane, ear canal and external ear normal. Left Ear: Tympanic membrane, ear canal and external ear normal. Nose: Nose normal. Mouth/Throat: Mouth: Mucous membranes are moist. Pharynx: Uvula midline. Posterior oropharyngeal erythema present. No oropharyngeal exudate. Cardiovascular: Rate and Rhythm: Normal rate and regular rhythm. Heart sounds: Normal heart sounds. Pulmonary: Effort: Pulmonary effort is normal. No respiratory distress. Breath sounds: Normal breath sounds. No wheezing or rales. Musculoskeletal: Cervical back: Neck supple. Lymphadenopathy: Cervical: Cervical adenopathy present. Skin: General: Skin is warm and dry. Findings: No erythema or rash. Neurological: Mental Status: She is alert. ASSESSMENT/PLAN: 1. Sore throat - ICD9: 462, ICD10: J02.9 - suspect viral - Group A strep molecular testing negative - Discussed supportive care treatment with fluids, rest and analgesia. - Follow-up with your PCP in 3-5 days if symptoms have not improved or sooner if symptoms worsen - Discussed red flags and need for immediate medical evaluation if any occur. - Discussed supportive care treatment with fluids, rest and analgesia. - Discussed expected course of illness Vicki Michael APRN.DIE CAST ENGINEER documented in this encounter [facility] 05-05-2023 History of Presen t illness Narrative This note was created using [employer]. Subjective Christa Arreguin is a 33 year old female. HPI 83-year-old female presents for congestion, fatigue, body aches, cough. Patient states she started getting nasal congestion a little over a week ago. States that she has facial pain and pressure behind her eyes. She has been fatigued and has bodyaches, mainly in her upper body. No sore throat. States she has had low-grade fevers at home. She has a dry cough. No history of asthma or COPD. She states that multiple people at her work have tested positive for COVID, RSV. He has been taking Sudafed, Tylenol, Motrin. No other complaint. PAST MEDICAL HISTORY Diagnosis Date Alcohol dependence (HCC) has been sober for 15 mos Anxiety and depression Drug dependency (HCC) has been clean for 15 mos PAST SURGICAL HISTORY Procedure Laterality Date PAST SURGICAL HISTORY OF extraction of wisdom teeth PAST SURGICAL HISTORY OF Right removal of cyst on right wrist ALLERGIES Patient has no known allergies. MEDICATIONS levonorgestrel (MIRENA) 21 mcg/24 hours (8 yrs) 52 mg IUD 1 Each by INTRAUTERINE route as directed. buPROPion (WELLBUTRIN) 100 mg tablet Take 100 mg by mouth. mirtazapine (REMERON) 15 mg tablet Take 15 mg by mouth. naltrexone ER (VIVITROL) 380 mg injection Inject intramuscularly. QUEtiapine (SEROQUEL) 100 mg tablet Take 100 mg by mouth. amoxicillin-clavulanate potassium (AUGMENTIN) 875-125 mg per tablet Take 1 tablet by mouth two times a day for 5 days. FAMILY HISTORY Problem Relation Age of Onset No Known Problems Mother Heart Attack Father x2 had stent placement Hypertension Father No Known Problems Brother No Known Problems Brother Social History Tobacco Use Smoking status: Never Passive exposure: Never Smokeless tobacco: Never Tobacco comments: Pt vapes Vaping Use Vaping Use: current everyday user Substances: Nicotine Substance Use Topics Alcohol use: Not Currently Comment: sober 15 mos Drug use: Not Currently Types: Heroin Comment: pt has been in recovery for 15 mos Review of Systems Constitutional: Positive for chills. Negative for fever. HENT: Positive for congestion, sinus pressure and sinus pain. Negative for ear pain and sore throat. Respiratory: Positive for cough. Negative for shortness of breath. Cardiovascular: Negative for chest pain. Gastrointestinal: Negative for diarrhea and vomiting. Musculoskeletal: Positive for myalgias. Objective BP 134/81 Pulse 107 Temp 37.3 C (99.2 F) Resp 20 Wt 78.5 kg (173 lb) LMP 12/23/2022 SpO2 100% BMI 25.73 kg/m Physical Exam Vitals and nursing note reviewed. Constitutional: General: She is not in acute distress. Appearance: Normal appearance. She is not toxic-appearing. HENT: Right Ear: Tympanic membrane and ear canal normal. Left Ear: Tympanic membrane and ear canal normal. Nose: Mucosal edema and congestion present. Right Sinus: Frontal sinus tenderness present. Left Sinus: Frontal sinus tenderness present. Mouth/Throat: Mouth: Mucous membranes are moist. Pharynx: No oropharyngeal exudate or posterior oropharyngeal erythema. Eyes: Conjunctiva/sclera: Conjunctivae normal. Cardiovascular: Rate and Rhythm: Normal rate and regular rhythm. Pulmonary: Effort: Pulmonary effort is normal. Breath sounds: Normal breath sounds. Neurological: Mental Status: She is alert. Assessment and Plan ASSESSMENT/PLAN: 1. URI, acute - ICD9: 465.9, ICD10: J06.9 (primary diagnosis) - Discussed viral etiology and rationale for treatment. - Symptomatic treatment with prn analgesia - Supportive care with fluids and rest - COVID & INFLUENZA A/B & RSV NAAT, ROUTINE -Out of window for Tamiflu and antiviral 2. Bacterial sinusitis - ICD9: 473.9, 041.9, ICD10: J32.9, B96.89 - Will begin treatment with Augmentin 875 mg PO BID for 5 days - Supportive care with plenty of fluids, rest, and analgesia prn. Diagnosis and treatment plan were discussed and questions were answered to the patient's satisfaction. Pt acknowledged understanding of concepts and follow up plan. Specific signs and symptoms that would indicate the need for higher level of care were discussed in detail warranting prompt ER evaluation. JUJU Jaeger documented in this encounter [facility] 03-27-2023 Miscellaneous Notes Patient notified.Laura Floyd LPN Please let patient know that their COVID-19, influenza, and RSV testing is negative. documented in this encounter [facility] 03-26-2023 Instructions Barrie Martinez APRN.DIE CAST ENGINEER - 03/26/2023 6:00 PM EST How to Manage Common Symptoms Associated with COVID for Adults Fever- Fever is a temperature over 100.4 F and can occur when the body is fighting an infection. To help treat a fever: Drink plenty of fluids and stay well hydrated. Eat small amounts of easy to digest food. Rest. Your body needs rest to recover, but getting up and moving around the house frequently is a good idea. You should try to continue doing your normal daily activities (bathing, toileting, grooming, cooking), though you will probably feel tired, and need to rest often. Avoid any heavy activity or exercise, as this will increase your body temperature. Dress in light clothing and stay covered in a light sheet. Keep the room temperature cool. Take a slightly warm (not cold or cool) bath, or apply damp washcloths to the forehead and wrists. Cough- Cough is a common symptom associated with COVID and can be bothersome. To help treat a cough: Stay well hydrated. Try warm water or tea with lemon and/or honey to help soothe the cough. Use a humidifier to add moisture to the air. Try a product with menthol, like a cough drop or a rub for your chest such as Vicks, which can help reduce cough. Try cough drops. Avoid smoking and other strong odors or perfumes. Try breathing exercises to keep your lungs open and clear. Take a big deep breath through your nose and hold for 5 seconds before slowly releasing. Repeat frequently, while you are awake. Congestion- Runny nose or nasal congestion can occur with COVID. Treatment can help relieve symptoms: Try OTC nasal saline spray, or nasal saline rinse to relieve mucus congestion. Nasal strips can help keep nasal passages open, to increase airflow. Elevating your head with an extra pillow in bed can help reduce congestion. Using a humidifier can increase moisture in the air, and make breathing easier. Sore Throat- Another common symptom with COVID, can be managed at home by: Stay well hydrated. Gargle with salt water - mix teaspoon salt with 1 cup of warm water and gargle. This helps to loosen mucus in the back of the throat and may reduce discomfort. Try ice chips, popsicles or lozenges to soothe the throat. Nausea/Vomiting/Diarrhea- These are common symptoms, and staying hydrated is most important. If you are nauseous or vomiting, start with small sips of water every 10-15 minutes and increase as tolerated. You can try sucking an ice cube too. If tolerating, you can try pedialyte or Gatorade, or flat sprite or jewel-daija. Start slowly and increase as you are able to. Instead of meals, try smaller, more frequent snacks. Try eating bland foods like crackers, toast, rice, and applesauce. Avoid spicy, greasy or fried foods and dairy containing foods. Even if you aren't feeling hungry due to lack of smell or taste, it is important to try to take in some food when you are able. After drinking and eating, rest in an upright position for up to two hours as needed to help decrease nauseous feelings. Try closing your eyes, avoid moving and watching TV. Avoid strong odors that can make you feel more nauseated. When to seek emergency medical attention Look for emergency warning signs for COVID-19. If having any of these symptoms, seek emergency medical care immediately: Trouble breathing Persistent pain or pressure in the chest New confusion Inability to wake or stay awake Bluish lips or face *This list is not all possible symptoms. Please call your medical provider for any other symptoms that are severe or concerning to you. documented in this encounter [facility] 03-26-2023 History of Presen t illness Narrative Subjective HPI Nontoxic-appearing female presents urgent care chief complaint sore throat fever body aches chills cough loss of taste. Duration of symptoms 5 days. Associated symptoms listed above. No OTC medication use today. Daughter sick similar signs and symptoms. Most prominent symptom today is fatigue. Denies any significant pain. Denies any high fevers productive cough chest pain shortness of breath pleuritic pain hemoptysis nausea vomiting abdominal pain or change in bowel or bladder habit. Past medical history prescription medication use allergies reviewed. .Patient presents with: Sore Throat: ST, fever and bodyaches x 5 days PAST MEDICAL HISTORY Diagnosis Date Alcohol dependence (HCC) has been sober for 15 mos Anxiety and depression Drug dependency (HCC) has been clean for 15 mos PAST SURGICAL HISTORY Procedure Laterality Date PAST SURGICAL HISTORY OF extraction of wisdom teeth PAST SURGICAL HISTORY OF Right removal of cyst on right wrist ALLERGIES Patient has no known allergies. MEDICATIONS levonorgestrel (MIRENA) 21 mcg/24 hours (8 yrs) 52 mg IUD 1 Each by INTRAUTERINE route as directed. buPROPion (WELLBUTRIN) 100 mg tablet Take 100 mg by mouth. mirtazapine (REMERON) 15 mg tablet Take 15 mg by mouth. naltrexone ER (VIVITROL) 380 mg injection Inject intramuscularly. QUEtiapine (SEROQUEL) 100 mg tablet Take 100 mg by mouth. FAMILY HISTORY Problem Relation Age of Onset No Known Problems Mother Heart Attack Father x2 had stent placement Hypertension Father No Known Problems Brother No Known Problems Brother Social History Tobacco Use Smoking status: Never Passive exposure: Never Smokeless tobacco: Never Tobacco comments: Pt vapes Vaping Use Vaping Use: current everyday user Substances: Nicotine Substance Use Topics Alcohol use: Not Currently Comment: sober 15 mos Drug use: Not Currently Types: Heroin Comment: pt has been in recovery for 15 mos BP 138/84 Pulse 108 Temp 37.1 C (98.8 F) (Tympanic) Resp 18 Wt 77.5 kg (170 lb 12.8 oz) LMP 12/23/2022 SpO2 96% BMI 25.41 kg/m Hr 90 Review of Systems Constitutional: Positive for chills and malaise/fatigue. Negative for fever. HENT: Positive for congestion and sore throat. Negative for ear discharge, ear pain and sinus pain. Eyes: Negative for blurred vision, pain, discharge and redness. Respiratory: Positive for cough. Negative for hemoptysis, sputum production, shortness of breath, wheezing and stridor. Cardiovascular: Negative for chest pain. Gastrointestinal: Negative for abdominal pain, diarrhea, nausea and vomiting. Musculoskeletal: Positive for myalgias. Skin: Negative for itching and rash. Neurological: Positive for headaches. Negative for dizziness. Objective Physical Exam Constitutional: General: She is not in acute distress. Appearance: She is not diaphoretic. HENT: Head: Normocephalic. Jaw: No trismus, tenderness, swelling or pain on movement. Nose: Congestion present. Mouth/Throat: Mouth: Mucous membranes are moist. Pharynx: Oropharynx is clear. Uvula midline. No pharyngeal swelling, oropharyngeal exudate, posterior oropharyngeal erythema or uvula swelling. Eyes: Conjunctiva/sclera: Conjunctivae normal. Pupils: Pupils are equal, round, and reactive to light. Cardiovascular: Rate and Rhythm: Normal rate and regular rhythm. Heart sounds: Normal heart sounds. Pulmonary: Effort: Pulmonary effort is normal. No tachypnea, accessory muscle usage or respiratory distress. Breath sounds: Normal breath sounds. No stridor. No wheezing, rhonchi or rales. Abdominal: General: There is no distension. Palpations: Abdomen is soft. Tenderness: There is no abdominal tenderness. There is no guarding or rebound. Musculoskeletal: Cervical back: Normal range of motion and neck supple. No edema, erythema, rigidity or tenderness. No pain with movement. Normal range of motion. Lymphadenopathy: Cervical: No cervical adenopathy. Skin: General: Skin is warm and dry. Neurological: Mental Status: She is alert and oriented to person, place, and time. ASSESSMENT/PLAN: 1. Viral illness - ICD9: 079.99, ICD10: B34.9 - Discussed viral etiology and rationale for treatment. - Symptomatic treatment with prn analgesia - Supportive care with fluids and rest - COVID & INFLUENZA A/B & RSV NAAT, ROUTINE Patient nontoxic-appearing. No evidence of bacterial infection on exam. If negative for COVID-19 symptoms are still persistent next 48 hours follow-up with PCP. Patient was educated on supportive therapies. Patient was instructed to immediately proceed to emergency room for any new, worsening, or symptoms lasting longer than anticipated. The patient's clinical presentation is otherwise unremarkable at this time. Based on exam and clinical finding, the patient is stable for discharge. Plan of care was discussed with patient. Patient verbalizes understanding and agrees to plan of care. This note was generated using [employer] software. It may contain errors in wording, punctuation, or spelling. Barrie Martinez APRN.LON documented in this encounter [facility] 01-08-2023 History of Presen t illness Narrative N/a Canopy Inspector offered: Patient declines. Christa presents today for IUD insertion for contraception. Patient's last menstrual period was 12/23/2022. GC/chlamydia: Collected today test: negative Side effects including irregular bleeding were discussed with the patient. The patient understands that it should be removed in 8 years or sooner if the patient desires a . IUD source: office provided IUD lot #: [id number] Exp date: 03/2025 UNIVERSAL PROTOCOL / SAFETY CHECKLIST Procedure to be Performed: Mirena IUD Insertion Sign In: A Moment of CARE was completed. Personnel directly involved with the procedure wore the appropriate PPE (Personal Protective Equipment). Patient/Surrogate Stated/Verified: PATIENT VERIFIED(optional for EMERGENT procedures): Patient name, Date of , Relevant allergies, and The intended procedure Time Out Communication: Intended patient and procedure match the source documents. Consent documented and matches the intended procedure. Implant(s) inserted: Correct implant(s) confirmed including size and side. and Expiration date(s) reviewed. Sign Out: SIGN OUT (optional for EMERGENT procedures): All specimen containers correctly labeled. All instruments, equipment, possible retained foreign bodies accounted for. Post-procedure follow-up management communicated and Plan of Care Visit completed when applicable. The cervix was prepped with betadine. The uterus sounded to 7 cm and the uterus is slightly Retroverted.. Using sterile technique, the Mirena IUD was inserted after the cervix was dilated and the string was cut to 4-5cm from the external os of the cervix. Patient tolerated procedure well. PLAN: Patient was advised to observe for signs and symptoms of infection including but not limited to fever, malodorous vaginal discharge and/or pain. The patient was told to check the string monthly for accurate placement. Bleeding expectations were reviewed. Follow up for next annual exam or sooner as needed. Chrissie De Jesus MD documented in this encounter [facility] 01-08-2023 Instructions Jackie Mahmood MA - 01/08/2023 10:19 AM EDT POST IUD INSTRUCTIONS You may have irregular bleeding during the first 3 months of use. You may have mild-severe cramping for the next 48 hours. You may use over the counter medication (Motrin, Tylenol) as needed. Your IUD must be removed or replaced based on the following table: IUD Type Removed or replaced within: Sandra 3 years Kyleena 5 years Mirena 8 years Paragard 10 years Call my office for signs/symptoms of infection such as severe cramping, fever, or unusual bleeding. Check for string placement as instructed by your doctor. If you have any additional questions, please contact the office. documented in this encounter [facility] 12-31-2022 History of Presen t illness Narrative Christa Arreguin is a 32 year old female who presents for OPC follow up HPI: Patient states that she has been doing well on the pill. The only thing that she has noticed is may be the week before menses that she is a little more short tempered and easy to anger. Denies any breakthrough bleeding or spotting menses is going on placebo week. She is interested in doing a long-term option and has questions regarding Nexplanon or an IUD. OB History T1 L1 SAB0 IAB0 Ectopic0 Multiple0 Live Births0 Price Changer History LMP: 12/23/2022, Having periods Age at Menarche: Age at First : Age at Menopause: Price Changer History Comments: Sexual Activity: Yes; Male Contraception: Pill PAST MEDICAL HISTORY Diagnosis Date Alcohol dependence (HCC) has been sober for 15 mos Anxiety and depression Drug dependency (HCC) has been clean for 15 mos PAST SURGICAL HISTORY Procedure Laterality Date PAST SURGICAL HISTORY OF extraction of wisdom teeth PAST SURGICAL HISTORY OF Right removal of cyst on right wrist FAMILY HISTORY Problem Relation Age of Onset No Known Problems Mother Heart Attack Father x2 had stent placement Hypertension Father No Known Problems Brother No Known Problems Brother Social History Tobacco Use Smoking status: Never Passive exposure: Never Smokeless tobacco: Never Tobacco comments: Pt vapes Vaping Use Vaping Use: current everyday user Substances: Nicotine Substance Use Topics Alcohol use: Not Currently Comment: sober 15 mos Drug use: Not Currently Types: Heroin Comment: pt has been in recovery for 15 mos Current Outpatient Medications Medication Sig buPROPion (WELLBUTRIN) 100 mg tablet Take 100 mg by mouth. mirtazapine (REMERON) 15 mg tablet Take 15 mg by mouth. naltrexone ER (VIVITROL) 380 mg injection Inject intramuscularly. QUEtiapine (SEROQUEL) 100 mg tablet Take 100 mg by mouth. Desogestrel-Ethinyl Estradiol (APRI) 0.15-0.03 mg per tablet Take 1 tablet by mouth once daily for 28 days. No current facility-administered medications for this visit. Allergies As of Date: 12/31/2022 (No Known Allergies) Fully Assessed 12/31/2022 REVIEW OF SYSTEMS Expanded ROS: N/A Allergies and current medication updated:Yes EXAM: BP 136/76 Wt 172 lb 6.4 oz (78.2kg) LMP 12/23/2022 GENERAL: pleasant, female in no apparent distress HEENT: Normocephalic, atraumatic, mucus membranes moist, and no lesions CHEST: Normal inspiratory effort NEURO: alert and oriented x3,exam grossly non-focal ASSESSMENT/PLAN: 1. Encounter for surveillance of contraceptive pills - ICD9: V25.41, ICD10: Z30.41 (primary diagnosis) 2. Encounter for IUD insertion - ICD9: V25.11, ICD10: Z30.430 Mirena ordered - INSERT INTRAUTERINE DEVICE Terri Ferro APRN.CNP Medical Decision Making: Problems: Low: Acute, uncomplicated illness or injury Risk: Low: Low risk from testing/treatment Moderate: Drug management Medical Decision Making Level: 3 - Low documented in this encounter [facility] Evaluation note Diagnosis Encounter for gynecological examination without abnormal finding Routine gynecological examination Screen for STD (sexually transmitted disease) Screening examination for venereal disease High risk heterosexual behavior Problems related to high-risk sexual behavior [facility] Diagnosis Onset Date Resolution Status Intravenous drug abuse in remission acute Smoker 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 noneactive Establishing care with new doctor, encounter for noneactive Screening for cervical cancer noneactive Anxiety and depression nonea ctive Excessive sweating noneactiv e Deviated septum noneactive [facility] Work Phone: Evaluation note* Diagnosis Encounter for surveillance of contraceptive pills- Primary Surveillance of previously prescribed contraceptive pill Encounter for IUD insertion Encounter for insertion of intrauterine contraceptive device documented in this encounter [facility] note* Diagnosis Encounter for IUD insertion- Primary Encounter for insertion of intrauterine contraceptive device Screen for STD (sexually transmitted disease) Screening examination for venereal disease documented in this encounter [facility] note* Diagnosis Viral illness- Primary Unspecified viral infection, in conditions classified elsewhere and of unspecified site documented in this encounter [facility] note* Diagnosis URI, acute- Primary Acute upper respiratory infections of unspecified site Bacterial sinusitis Unspecified sinusitis (chronic) documented in this encounter [facility] note* Diagnosis Sore throat- Primary Acute pharyngitis documented in this encounter [facility] note* Diagnosis Sore throat- Primary Acute pharyngitis documented in this encounter [facility] note* Diagnosis Sore throat- Primary Acute pharyngitis documented in this encounter [facility] note* Diagnosis Redness of skin- Primary Unspecified erythematous condition documented in this encounter [facility] for referral (narrative)* Outpatient Procedure (Routine) - Pending Review Specialty Diagnoses / Procedures Referred By Alex torrez Referred To Contact [facility] Diagnoses Encounter for IUD insertion Procedures INSERT INTRAUTERINE DEVICE LEVONORGESTREL IU 52MG 5 YR INSERT INTRAUTERINE DEVICE Terri Ferro APRN.CNP [address] [place] [address] [facility] [address] [place] [address] Referral ID Status Reason Start Date Expiration Date Visits Requested Visits Authorized [id number] Pending Review Auto-Generat ed Referral 12/31/2022 12/31/2023 [facility] Outpatient Procedure (Routine) - Pending Review Specialty Diagnoses / Procedures Referred By Alex torrez Referred To Contact [facility] Diagnoses Encounter for IUD insertion Procedures INSERT INTRAUTERINE DEVICE LEVONORGESTREL IU 52MG 5 YR INSERT INTRAUTERINE DEVICE Chrissie De Jesus MD [address] [place] [address] [facility] [address] [place] [address] Referral ID Status Reason Start Date Expiration Date Visits Requested Visits Authorized [id number] Pending Review Auto-Generat ed Referral 01/08/2023 01/08/2024 1 1 [facility] Advance Directives No Advanced Directives Records FoundDocuments on File Type Date Recorded 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 Given 01/08/2023 10:50 AM EDT 1 Each Health Concerns Infection Onset Date Last Indicated Resolved Time COVID-19 Rule-Out 03/26/2023 03/26/2023 03/27/2023 8:01 AM EST Additional Source Comments INFORMATION SOURCE (unrecogn ized section and content) DATE CREATED AUTHOR 12/10/2019 [facility] ([place]) DATE CREATED AUTHOR AUTHOR'S ORGANIZ ATION 03/10/2020 [facility] DATE CREATED AUTHOR AUTHOR'S ORGANIZ ATION 03/19/2024 [facility] DATE CREATED AUTHOR AUTHOR'S ORGANIZ ATION 04/19/2024 [email or web address] DATE CREATED AUTHOR AUTHOR'S ORGANIZ ATION 10/27/2024 [facility] Care Teams (unrecognized sec tion and content) Debeader Relationship Specialty Start Date End Date Kanski, Roxie, PA-C [address] [place] [address] PCP - General Family Medicine 11/25/19 Team Status: Active Member Role Status Dates Dr. Odin Abraham MD Primary Care Provider Active Team Status: Inactive Member Role Status Dates Dr. Odin Abraham MD Primary Care Pro vider, Attending Provider, Referring Provider Active Debeader Relationship Specialty Start Date End Date Odin Abraham MD [address] [place], [place] [id number] PCP - General Internal Medicine 04/14/24 Debeader Relationship Specialty Start Date End Date Odin Abraham MD [address] [place] [id number] PCP - General Internal Medicine 04/14/24 Goals (unrecognized section and content) Goals may be documented in a n alternate section Source Comments (unrecognize d section and content) In the event this informatio n is protected by the Federal Confidentiality of Alcohol and Drug Abuse Patient Records regulations: The Federal rules restrict any use of the information to criminally investigate or prosecute any alcohol or drug abuse patient.[facility] Health AdministrationIn the event this information is protected by the Federal Confidentiality of Alcohol and Drug Abuse Patient Records regulations: The Federal rules restrict any use of the information to criminally investigate or prosecute any alcohol or drug abuse patient.[facility] Health AdministrationIn the event this information is protected by the Federal Confidentiality of Alcohol and Drug Abuse Patient Records regulations: The Federal rules restrict any use of the information to criminally investigate or prosecute any alcohol or drug abuse patient.[facility] AdministrationIn the event this information is protected by the Federal Confidentiality of Alcohol and Drug Abuse Patient Records regulations: The Federal rules restrict any use of the information to criminally investigate or prosecute any alcohol or drug abuse patient.[facility] AdministrationIn the event this information is protected by the Federal Confidentiality of Alcohol and Drug Abuse Patient Records regulations: The Federal rules restrict any use of the information to criminally investigate or prosecute any alcohol or drug abuse patient.[facility] AdministrationIn the event this information is protected by the Federal Confidentiality of Alcohol and Drug Abuse Patient Records regulations: The Federal rules restrict any use of the information to criminally investigate or prosecute any alcohol or drug abuse patient.[facility] Health AdministrationIn the event this information is protected by the Federal Confidentiality of Alcohol and Drug Abuse Patient Records regulations: The Federal rules restrict any use of the information to criminally investigate or prosecute any alcohol or drug abuse patient.[facility] AdministrationIn the event this information is protected by the Federal Confidentiality of Alcohol and Drug Abuse Patient Records regulations: The Federal rules restrict any use of the information to criminally investigate or prosecute any alcohol or drug abuse patient.[facility] Health AdministrationIn the event this information is protected by the Federal Confidentiality of Alcohol and Drug Abuse Patient Records regulations: The Federal rules restrict any use of the information to criminally investigate or prosecute any alcohol or drug abuse patient.[facility] Reason for Visit (unrecogniz ed section and content) Reason Comments Follow Up Oral Contraceptive P ill Reason Onset Date Comments Insertion Of IUD 01/08/2023 Specialty Diagnoses / Procedures Referred By Alex torrez Referred To Contact [facility] Diagnoses Encounter for IUD insertion Encounter for removal of intrauterine contraceptive device Procedures INSERT INTRAUTERINE DEVICE LEVONORGESTREL IU 52MG 5 YR INSERT INTRAUTERINE DEVICE REMOVE INTRAUTERINE DEVICE Terri Ferro APRN.DIE CAST ENGINEER [address] [place] [address] [facility] [address] [place] [address] Referral ID Status Reason Start Date Expiration Date Visits Requested Visits Authorized [id number] Authorized Auto-Generat ed Referral 01/01/2023 05/19/2023 2 2 Reason Comments Sore Throat ST, fever and bodyac hes x 5 days Reason Comments Results Reason Comments Cough Congestion, bodyache s, headache, pressure in eyes pain, shoulders/back upper painful x 1 week Reason Comments Sore Throat X 1 day Reason Comments Sore Throat ST, drainage and fat igue x 4-5 days Reason Comments Sore Throat Fatigue, bilateral e ar pressure and muffled hearing x4 days, strep exposure Reason Comments lleft arm pain and swelling X 2 days FOR RECORDS PERTAINING TO PATIENTS WHO ARE OR HAVE BEEN ENROLLED IN A CHEMICAL DEPENDENCY/SUBSTANCEABUSE PROGRAM, SOME INFORMATION MAY BE OMITTED. This clinical summary was aggregated from multiple sources. Caution should be exercised in using it in the provision of clinical care. This summary normalizes information from multiple sources, and as a consequence, information in this document may materially change the coding, format and clinical context of patient data. In addition, data may be omitted in some cases. CLINICAL DECISIONS SHOULD BE BASED ON THE PRIMARY CLINICAL RECORDS. [facility]. provides no warranty or guarantee of the accuracy or completeness of information in this document.
[2024-12-07 21:50] LABS: Differential Comment SCANNED
[2024-12-07 22:00] VITALS: BP 122/77; RESP 18; O2SAT 100
[2024-12-07 22:48] LABS: Barbiturate Urine NEGATIVE (< 200 ng/mL); Benzodiazepine Urine NEGATIVE (< 200 ng/mL); PCP Urine NEGATIVE (< 25 ng/mL); THC Urine NEGATIVE (< 50 ng/mL)
[2024-12-07 23:00] VITALS: RESP 20; O2SAT 100
--- NOTE | 2024-12-07 23:06 | EDS_ITS ---
HPI History of Present Illness Chief Complaint: Substance Abuse Narrative Narrative: Chief complaint and HPI: Requesting polysubstance detox. 34-year-old female with past medical history of fentanyl and methamphetamine abuse presents requesting polysubstance detox. Last used this morning. Currently denies any withdrawal symptoms. Denies any nausea or vomiting. Review of systems: See HPI Medications: As listed on the chart Allergies: As listed on the chart PFSH: Per chart Vital signs: As listed on the chart. Reviewed. Physical exam: Gen: A&O x3, NAD Head: Normocephalic, atraumatic Eyes: No sclera icterus, conjunctiva clear ENT: Moist mucous membranes Neck: Trachea midline, No JVD CV: RRR, no murmurs, no peripheral edema Resp: Lungs CTA BL, no w/r/c GI: Abd soft, non-distended, non-tender, no r/r/g Musc: Full ROM, no deformity Skin: Warm, dry Neuro: Alert, oriented, grossly intact, sensation intact Psych: Cooperative, appropriate mood and affect [facility] Medical History HPV in female Back problem Substance abuse Smoker Irregular heart beat PTSD (post-traumatic stress disorder) Depression Anxiety Asthma Home Medications ?Medication ?Instructions ?Recorded ?Last Taken ?Type levonorgestrel (Mirena) 1 device intrauterine ONCE 1 Unknown History fexofenadine 180 mg tablet 180 mg PO DAILY PRN 4 Unknown History (Carol Allergy) fluticasone propionate 50 1 spray intranasal DAILY PRN 09/05/23 Unknown History mcg/actuation nasal spray,suspension (Flonase Allergy Relief) aluminum chloride 20 % topical 1 applic topical 2XW #6 0 mL 03/17/24 Unknown Rx solution (Drysol Dab-O-Matic) quetiapine 100 mg tablet 100 mg PO QHS #30 tabs 05/18 Unknown Rx mirtazapine 15 mg tablet (Remeron) 15 mg PO DAILY #90 tabs 05/26/24 Unknown Rx bupropion HCl 200 mg tablet,12 hr 200 mg PO BID #60 ea 06/02/24 Unknown Rx sustained-release Allergy/AdvReac Type Severity Reaction Status Date / Time No Known Allergies Allergy Verified 12/07/24 19:29 Family History Father Myocardial infarction 70s Hypertension Surgical History History of removal of cyst [place] teeth extracted Social History household members: other details: sober living current occupational status: employed current occupation: [employer] Smoking Status: Current every day smoker tobacco type: e-cigarettes Electronic Cigarette Use: not used alcohol intake: former details: 2021 substance use type: former substance user Date of last use: 06/28/2021, heroin and opiates do you feel safe at home: Yes EXAM Physical Exam Const Vital Signs: 12/07/24 19:27 12/07/24 21:27 12/07/24 22:00 Temperature 98.3 F 97.9 F Temperature Source Oral Pulse Rate 106 H 88 Respiratory Rate 16 20 H 18 Blood Pressure 151/104 H 112/60 122/77 H Blood Pressure Mean 119 77 92 Pulse Ox 100 100 100 Oxygen Delivery Method Room Air Room Air MDM MDM MDM Narrative Medical decision making narrative: 34-year-old female with past medical history of fentanyl and methamphetamine abuse presents requesting polysubstance detox. Last used this morning. Currently denies any withdrawal symptoms. Placement labs were ordered in triage per protocol. I agree with the labs that was ordered. CBC without leukocytosis or anemia. BMP unremarkable. Serum negative. Urine drug screen positive for fentanyl and amphetamines. Alcohol level unremarkable. Patient will warrant admission for her polysubstance drug abuse and requesting detox. Patient discussed with the hospitalist who accepted admission. Impression: 1. Polysubstance abuse including fentanyl and methamphetamine 2. Requesting detox Lab Data Labs: Laboratory Results - last 24 hr 12/07/24 12/07/24 19:50 21:30 WBC 4.5 RBC 3.99 L Hgb 12.0 Hct 34.9 L MCV 87.5 MCH 30.1 MCHC 34.4 RDW Std Deviation 41.5 RDW Coeff of Jose 13.1 Plt Count 216 MPV 9.4 Immature Gran % (Auto) 0.200 Neut % (Auto) 54.5 Lymph % (Auto) 38.0 Glynn % (Auto) 6.9 Eos % (Auto) 0.0 Baso % (Auto) 0.4 Absolute Neuts (auto) 2.4 Absolute Lymphs (auto) 1.70 Nucleated RBC % 0 Differential Comment SCANNED Platelet Estimate ADEQUATE Sodium 139 Potassium 3.9 Chloride 104 Carbon Dioxide 23.1 Anion Gap 12 BUN 12 Creatinine 0.72 Estim Creat Clear Calc 117.70 Est GFR (MDRD) Non-Af 112 BUN/Creatinine Ratio 17.0 Glucose 112 H Calcium 9.1 Serum , Qual NEGATIVE Urine Opiates Screen NEGATIVE U Buprenorphine Qual NEGATIVE Ur Oxycodone Screen NEGATIVE Urine Methadone Screen NEGATIVE Urine Fentanyl Screen PRESUMPTIVE POSITIVE Ur Barbiturates Screen NEGATIVE Ur Phencyclidine Scrn NEGATIVE Ur Amphetamines Screen PRESUMPTIVE POSITIVE U Benzodiazepines Scrn NEGATIVE Urine Cocaine Screen NEGATIVE U Cannabinoids Screen NEGATIVE Ethyl Alcohol < 10.1 Discharge Plan Triage Chief Complaint: Substance Abuse ED Provider: Jaden Yepez Dx/Rx/DC Orders Prescriptions: No Action Mirena 21 mcg/24 hours (8 yrs) 52 mg intrauterine device 1 device intrauterine ONCE Rx Instructions: as a single dose fexofenadine [Carol Allergy] 180 mg tablet 180 mg PO DAILY PRN fluticasone propionate [Flonase Allergy Relief] 50 mcg/actuation spray,suspension 1 spray intranasal DAILY PRN Rx Instructions: administer into each nostril Drysol Dab-O-Matic 20 % solution 1 applic topical 2XW Qty: 60 1RF quetiapine 100 mg tablet 100 mg PO QHS Qty: 30 0RF Patient Comments: has not been taking recently mirtazapine [Remeron] 15 mg tablet 15 mg PO DAILY Qty: 90 0RF Patient Comments: has not been taking recently bupropion HCl 200 mg tablet sustained-release 12 hr 200 mg PO BID Qty: 60 1RF Patient Comments: has not been taking recently Primary Care Provider: Hoda Abraham Referrals: Hoda Abraham MD [Primary Care Provider] - Print Language: Estonian
--- NOTE | 2024-12-07 23:17 | PCM.HP.STD ---
HPI - General General Date of Admission: 12/07/24 Date of Service: 12/07/24 Chief Complaint: Opiate withdrawal and methamphetamine abuse HPI Narrative HECTOR ARREGUIN, is a 34 F who presents to the emergency room with chief complaint of requesting withdrawal support from opiates and methamphetamine. Patient has a long-term drug addiction history but states after 22 she had been sober for nearly 3 years but had lost her sober housing situation and relapsed. Patient admits to some nausea and vomiting and irritability. Patient states she last used meth and fentanyl earlier today around noon. She is requesting support for withdrawal and detoxification. Patient denies any other chronic medical history and denies chest pain or shortness of breath or fevers or chills at present time [facility] Medical History HPV in female Back problem Substance abuse Smoker Irregular heart beat PTSD (post-traumatic stress disorder) Depression Anxiety Asthma Home Medications ?Medication ?Instructions ?Recorded ?Last Taken ?Type levonorgestrel (Mirena) 1 device intrauterine ONCE 02/26/23 Unknown History fexofenadine 180 mg tablet 180 mg PO DAILY PRN 09/05/23 Unknown History (Carol Allergy) fluticasone propionate 50 1 spray intranasal DAILY PRN 09/05/23 Unknown History mcg/actuation nasal spray,suspension (Flonase Allergy Relief) aluminum chloride 20 % topical 1 applic topical 2XW #60 mL 03/17/24 Unknown Rx solution (Drysol Dab-O-Matic) quetiapine 100 mg tablet 100 mg PO QHS #30 tabs 05/18/24 Unknown Rx mirtazapine 15 mg tablet (Remeron) 15 mg PO DAILY #90 tabs 05/26/24 Unknown Rx bupropion HCl 200 mg tablet,12 hr 200 mg PO BID #60 ea 06/02/24 Unknown Rx sustained-release Allergy/AdvReac Type Severity Reaction Status Date / Time No Known Allergies Allergy Verified 12/07/24 19:29 Family History Father Myocardial infarction 70s Hypertension Surgical History History of removal of cyst [place] teeth extracted Social History household members: other details: sober living current occupational status: employed current occupation: [employer] Smoking Status: Current every day smoker tobacco type: e-cigarettes Electronic Cigarette Use: not used alcohol intake: former details: 2021 substance use type: former substance user Date of last use: 06/28/2021, heroin and opiates do you feel safe at home: Yes ROS Constitutional Constitutional: Denies chills or fever(s) Eyes Eyes: Denies blurry vision ENT HEENT: Denies abnormal hearing Cardiovascular Cardiovascular: Denies chest pain Respiratory/Chest Respiratory/Chest: Denies shortness of breath at rest Gastrointestinal Gastrointestinal: Reports nausea and vomiting; Denies abdominal pain Genitourinary Genitourinary: Denies dysuria Musculoskeletal Musculoskeletal: Denies back pain Integumentary Integumentary: Reports dry skin Neurologic Neurologic: Denies abnormal speech Psychiatric Psychiatric: Reports anxiety Vital Signs Vital Signs Vital Signs: 12/07/24 19:27 12/07/24 21:27 12/07/24 22:00 Temperature 98.3 F 97.9 F Temperature Source Oral Pulse Rate 106 H 88 Respiratory Rate 16 20 H 18 Blood Pressure 151/104 H 112/60 122/77 H Blood Pressure Mean 119 77 92 Pulse Ox 100 100 100 Oxygen Delivery Method Room Air Room Air 12/07/24 23:00 Temperature Temperature Source Pulse Rate Respiratory Rate 20 H Blood Pressure Blood Pressure Mean Pulse Ox 100 Oxygen Delivery Method Weight Weight: 149 lb 4.8 oz Body Mass Index (BMI) 21.4 Physical Exam Const oriented x3 General Appearance: cooperative and well developed HEENT normocephalic and head/scalp atraumatic Eyes PERRL Neck no lymphadenopathy Lymph Lymphatic: no lymphadenopathy noted Resp normal respiratory effort, normal air movement and clear to auscultation bilaterally Cardio regular rate, regular rhythm, S1 normal heart sound and S2 normal heart sound GI normal to inspection, nondistended, normoactive bowel sounds Extremity normal capillary refill Skin General Skin Exam: no breakdown Neuro no focal motor deficits and no sensory deficits noted Psych Mood & Affect: anxious Results Lab / Micro Data 12/07/24 19:50 12/07/24 19:50 Labs: Laboratory Results - last 24 hr 12/07/24 19:50: WBC 4.5, RBC 3.99 L, Hgb 12.0, Hct 34.9 L, MCV 87.5, MCH 30.1, MCHC 34.4, RDW Std Deviation 41.5, RDW Coeff of Jose 13.1, Plt Count 216, MPV 9.4, Immature Gran % (Auto) 0.200, Neut % (Auto) 54.5, Lymph % (Auto) 38.0, Victoria % (Auto) 6.9, Eos % (Auto) 0.0, Baso % (Auto) 0.4, Absolute Neuts (auto) 2.4, Absolute Lymphs (auto) 1.70, Nucleated RBC % 0, Differential Comment SCANNED, Platelet Estimate ADEQUATE, Sodium 139, Potassium 3.9, Chloride 104, Carbon Dioxide 23.1, Anion Gap 12, BUN 12, Creatinine 0.72, Estim Creat Clear Calc 117.70, Est GFR (MDRD) Non-Af 112, BUN/Creatinine Ratio 17.0, Glucose 112 H, Calcium 9.1, Serum , Qual NEGATIVE, Ethyl Alcohol < 10.1 12/07/24 21:30: Urine Opiates Screen NEGATIVE, U Buprenorphine Qual NEGATIVE, Ur Oxycodone Screen NEGATIVE, Urine Methadone Screen NEGATIVE, Urine Fentanyl Screen PRESUMPTIVE POSITIVE, Ur Barbiturates Screen NEGATIVE, Ur Phencyclidine Scrn NEGATIVE, Ur Amphetamines Screen PRESUMPTIVE POSITIVE, U Benzodiazepines Scrn NEGATIVE, Urine Cocaine Screen NEGATIVE, U Cannabinoids Screen NEGATIVE Assessment & Plan Assessment/Plan (1) Depression: (2) Anxiety: (3) Methamphetamine abuse: (4) Opiate abuse, continuous: PLAN: Plan 1 withdrawal and detoxification from opiates and methamphetamine?admit patient to general medical floor Place patient on opiate withdrawal protocol and consult case management for discharge planning and long-term treatment options 2. History of depression and anxiety?not currently taking any medications stable at present time will recommend reevaluation at discharge with provider who can manage long-term care 3. DVT prophylaxis test patient is ambulatory and low risk for DVT at present time Charges/Coding Visit Charges Inpatient E&M: 46741 Init Hosp L2
--- OUTSIDE RECORDS SUMMARY | 2024-12-07 23:25 | XMS RPT_ITS | CCD ---
Author Organization [facility] Care Team Providers Care Hand Profiler Name Role Phone Pcp, None Primary Care Provider UnavailRoxie Hurley Primary Care Provider Roxie Howell PA-C Primary Care Provider Dr. Odin Abraham Primary Care Provider Dr. Odin Abraham Attending Provider [phone] Dr. Odin Abraham Referring Provider [phone] Unavailable Primary Care Provider Unavailabl e Unavailable [...] Drug Class(es) Dates Sig (Normalized) Sig (Original) [id number] 200 actuat albuterol 0.09 mg/actuat metered dose [...] daily. 16 g 1 09/12/2020 Active levonorgestrel 0.384424 mg/hr intrauterine system (9 sources) Progestin, Progestin-containing [...] Start: 07-04-2017 take 1 capsule by mo [facility] three times daily as needed for [...] Date Episodic/Chronic Other aftercare (2 sources) Other mcfp (current) drug therapy; Translations: [Long-term (current) use of other medications] Onset: 09-05-2023 05-28-2022 Episodic Other aftercare (9 sources) Long-term current use of antipsychotic medication; Translations: [Other buttermaker continuous churn (current) drug therapy] Onset: 09-28-2022 09-28-2022 Episodic Other skin disorders (3 sources) Excessive sweating; Translations: [Generalized hyperhidrosis] Onset: 07-04-2017 07-04-2017 Episodic Results Test Name Value Interpretation Reference Range Facility [facility] 10-26-2024 OV Office Visit (UCWSTR ) CHRISTA ARREGUIN ([id number]) 1990 F Date Time Provider Department 10/26/24 6:45 PM CATIE FLORES [facility] During your visit today, we recorded the following information about you: Temperature Pulse Respiration Blood pressure 97.6 degrees 101/minute 18/minute 132/82 Weight 70.6 kg Catie Flores APRN.SENIOR WEB ANALYST 10/26/2024 7:31 PM Signed Subjective The history is provided by the patient. No speech language pathology assistant was used. 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 Normal [facility] CNOVon 04-14-2024 CNOV Office Visit (UCWSTR ) KALLIENEVAEHCHRISTA ([id number]) 1990 F Date Time Provider Department 04/14/24 5:00 PM TUCKER DEVLIN [facility] During your visit today, we recorded the following information about you: Temperature Pulse Respiration Blood pressure 98.1 degrees 96/minute 18/minute 129/84 Weight 83.8 kg Tucker Devlin APRN.SENIOR WEB ANALYST 04/14/2024 5:21 PM Signed Subjective HPI HPI [...] PROPIONATE 50 MCG/ACTUATION NASAL SPRAY,SUSPENSION Tucker Devlin APRN.SENIOR WEB ANALYST Allergies As of Date: 04/14/2024 (No Known Allergies) Date Reviewed: 04/14/2024 Reviewed by: Aylin Escalante MA - Fully Assessed Reason for Visit: Sore Throat [200] Cmt: Fatigue, bilateral ear pressure and muffled hearing x4 days, strep exposure Primary Visit Diagnosis:Sore throat [J02.9] Order(s):STREP A MOLECULAR (POC) [0556773] Order #: [id number]. #:[id number] predniSONE (DELTASONE) 20 mg tabletTake 2 tablets by mouth once da (more content not included)... Normal [facility] STREP A MOLECULAR (POC)on Procedural Control Valid [facility] Strep A (POCT) Negative Negative [facility] Internal Medicine Office Vis iton 03-16-2024 Internal Medicine Office Visit [facility] [address] [place] [address] [place] [address] OFFICE VISIT Date of Service: 03/17/24 MR#: [id number] Acct: [id number] Name: CHRISTA ARREGUIN Rep #: [id number] : 1990 Provider: Dr. Odin salinas MD Age/Sex: 34/F Location: [facility] Status: Signed Intake Vital Signs 09/05/23 15:05 [...] M FU Chief Complaint: 6 M FU Network Relations Consultant Required: No Is patient in pain?: No [...] to wean off remeron. Declines flu vaccine. 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 Normal [facility] STREP A MOLECULAR (POC)on Procedural Control Valid [facility] Strep A (POCT) Negative Negative [facility] CBC W/Diff, Automatedon 09-17 Absolute Lymph 2.06 X10 3/uL Normal 0.83-4.51 [facility] Comment on above: Performed By: #### L 501.9985, L500.4050, L500.4100, L100.0100, L501.9520 #### [facility] [address] [place], [address] Absolute Neut 3.6 X10 3/uL Normal 2.0-7.7 [facility] Comment on above: Performed By: #### L 501.9985, L500.4050, L500.4100, L100.0100, L501.9520 #### [facility] [address] [place], [address] Basophils/100 WBC (Bld) 0.5 % Normal 0-1 [facility] Comment on above: Performed By: #### L 501.9985, L500.4050, L500.4100, L100.0100, L501.9520 #### [facility] [address] [place], [address] Eosinophils/100 WBC (Bld) 2.1 % Normal 0-5 [facility] Comment on above: Performed By: #### L 501.9985, L500.4050, L500.4100, L100.0100, L501.9520 #### [facility] [address] [place], [address] Erythrocyte distribution width (RBC) [Ratio] 12.4 % Normal 11.6-14.6 [facility] Comment on above: Performed By: #### L 501.9985, L500.4050, L500.4100, L100.0100, L501.9520 #### [facility] [address] [place], [address] Hematocrit (Bld) [Volume fraction] 42.2 % Normal 37-47 [facility] Comment on above: Performed By: #### L 501.9985, L500.4050, L500.4100, L100.0100, L501.9520 #### [facility] [address] [place], [address] Hemoglobin (Bld) [Mass/Vol] 13.9 g/dL Normal 12.0-15.0 [facility] Comment on above: Performed By: #### L 501.9985, L500.4050, L500.4100, L100.0100, L501.9520 #### [facility] [address] [place], [address] IG% 0.200 Normal 0.0-0.9 [facility] Comment on above: Result Comment: IG% - Immature Granulocytes (promyelocytes, myelocytes and metamyelocytes) > 1% indicates that a LEFT SHIFT is Present. Performed By: #### L 501.9985, L500.4050, L500.4100, L100.0100, L501.9520 #### [facility] [address] [place], [address] Lymphocytes/100 WBC (Bld) 33.0 % Normal 19-41 [facility] Comment on above: Performed By: #### L 501.9985, L500.4050, L500.4100, L100.0100, L501.9520 #### [facility] [address] [place], [address] MCH (RBC) [Entitic mass] 30.5 pg Normal 27.0-32.0 [facility] Comment on above: Performed By: #### L 501.9985, L500.4050, L500.4100, L100.0100, L501.9520 #### [facility] [address] [place], [address] MCHC (RBC) [Mass/Vol] 32.9 g/dL Normal 32-36 [facility] Comment on above: Performed By: #### L 501.9985, L500.4050, L500.4100, L100.0100, L501.9520 #### [facility] [address] [place], [address] MCV (RBC) [Entitic vol] 92.5 fL Normal 81-99 [facility] Comment on above: Performed By: #### L 501.9985, L500.4050, L500.4100, L100.0100, L501.9520 #### [facility] [address] [place], [address] Monocytes/100 WBC (Bld) 7.4 % Normal 0-10 [facility] Comment on above: Performed By: #### L 501.9985, L500.4050, L500.4100, L100.0100, L501.9520 #### [facility] [address] [place], [address] Neutrophils/100 WBC (Bld) 56.8 % Normal 47-70 [facility] Comment on above: Performed By: #### L 501.9985, L500.4050, L500.4100, L100.0100, L501.9520 #### [facility] [address] [place], [address] Nucleated RBC (Bld) [#/Vol] 0 10*3/uL Normal 0-5 [facility] Comment on above: Performed By: #### L 501.9985, L500.4050, L500.4100, L100.0100, L501.9520 #### [facility] [address] [place], [address] Platelet mean volume (Bld) [Entitic vol] 9.9 fL Normal 6.2-12.0 [facility] Comment on above: Performed By: #### L 501.9985, L500.4050, L500.4100, L100.0100, L501.9520 #### [facility] [address] [place], [address] Platelets (Bld) [#/Vol] 262 10*3/uL Normal 150-450 [facility] Comment on above: Performed By: #### L 501.9985, L500.4050, L500.4100, L100.0100, L501.9520 #### [facility] [address] [place], [address] RBC (Bld) [#/Vol] 4.56 10*6/uL Normal 4.2-5.4 [facility] Comment on above: Performed By: #### L 501.9985, L500.4050, L500.4100, L100.0100, L501.9520 #### [facility] [address] [place], [address] RDW SD 42.5 fl Normal 35.1-43.9 [facility] Comment on above: Performed By: #### L 501.9985, L500.4050, L500.4100, L100.0100, L501.9520 #### [facility] [address] [place], [address] WBC (Bld) [#/Vol] 6.3 10*3/uL Normal 4.4-11.0 [facility] Comment on above: Performed By: #### L 501.9985, L500.4050, L500.4100, L100.0100, L501.9520 #### [facility] [address] [place], [address] Comprehensive Metabolic Prof [facility] 09-27-2023 Albumin [Mass/Vol] 4.0 g/dL Normal 3.2-5.0 [facility] Comment on above: Performed By: #### L 501.9985, L500.4050, L500.4100, L100.0100, L501.9520 #### [facility] [address] [place], [address] Albumin/Globulin [Mass ratio] 1.1 {ratio} Normal 0.9-2.4 [facility] Comment on above: Performed By: #### L 501.9985, L500.4050, L500.4100, L100.0100, L501.9520 #### [facility] [address] [place], [address] ALK P 43 U/L Low 45-117 [facility] Comment on above: Performed By: #### L 501.9985, L500.4050, L500.4100, L100.0100, L501.9520 #### [facility] [address] [place], [address] ALT [Catalytic activity/Vol] 25 U/L Normal 13-56 [facility] Comment on above: Performed By: #### L 501.9985, L500.4050, L500.4100, L100.0100, L501.9520 #### [facility] [address] [place], [address] AST [Catalytic activity/Vol] 22 U/L Normal 15-37 [facility] Comment on above: Performed By: #### L 501.9985, L500.4050, L500.4100, L100.0100, L501.9520 #### [facility] [address] [place], [address] Bilirubin [Mass/Vol] 0.70 mg/dL Normal 0.20-1.00 [facility] Comment on above: Result Comment: For patients on eltrombopag therapy, use of Dimension Bovill TBIL is not recommended. Performed By: #### L 501.9985, L500.4050, L500.4100, L100.0100, L501.9520 #### [facility] [address] [place], [address] BUN/CRE 11.8 RATIO Normal 10-20 [facility] Comment on above: Performed By: #### L 501.9985, L500.4050, L500.4100, L100.0100, L501.9520 #### [facility] [address] [place], [address] CA,Total 9.1 mg/dL Normal 8.5-10.1 [facility] Comment on above: Performed By: #### L 501.9985, L500.4050, L500.4100, L100.0100, L501.9520 #### [facility] [address] [place], [address] Chloride [Moles/Vol] 107 mmol/L Normal 98-107 [facility] Comment on above: Performed By: #### L 501.9985, L500.4050, L500.4100, L100.0100, L501.9520 #### [facility] [address] [place], [address] CO2 [Moles/Vol] 27.0 mmol/L Normal 21.0-32.0 [facility] Comment on above: Performed By: #### L 501.9985, L500.4050, L500.4100, L100.0100, L501.9520 #### [facility] [address] [place], [address] Creatinine [Mass/Vol] 0.85 mg/dL Normal 0.55-1.02 [facility] Comment on above: Result Comment: The validity of the calculated GFR GFRAA in patients over 70 years has not been determined. Clinical correlation is essential. Performed By: #### L 501.9985, L500.4050, L500.4100, L100.0100, L501.9520 #### [facility] [address] [place], [address] EST GFR - AA 99 mL/min Normal >60 [facility] Comment on above: Result Comment: Afri can Ugand[place] GFR Calc Performed By: #### L 501.9985, L500.4050, L500.4100, L100.0100, L501.9520 #### [facility] [address] [place], [address] GAP 5 Normal 5-15 [facility] Comment on above: Performed By: #### L 501.9985, L500.4050, L500.4100, L100.0100, L501.9520 #### [facility] [address] [place], [address] GFR/1.73 sq M.predicted among non-blacks MDRD (S/P/Bld) [Vol rate/Area] 82 mL/min/{1.73_m2} Normal >60 [facility] Comment on above: Result Comment: Non- GFR Calc Performed By: #### L 501.9985, L500.4050, L500.4100, L100.0100, L501.9520 #### [facility] [address] [place], [address] Globulin (S) [Mass/Vol] 3.5 g/dL Normal 2.2-4.2 [facility] Comment on above: Performed By: #### L 501.9985, L500.4050, L500.4100, L100.0100, L501.9520 #### [facility] [address] [place], [address] Glucose [Mass/Vol] 91 mg/dL Normal 74-106 [facility] Comment on above: Performed By: #### L 501.9985, L500.4050, L500.4100, L100.0100, L501.9520 #### [facility] [address] [place], [address] Potassium [Moles/Vol] 4.1 mmol/L Normal 3.5-5.1 [facility] Comment on above: Performed By: #### L 501.9985, L500.4050, L500.4100, L100.0100, L501.9520 #### [facility] [address] [place], [address] Sodium [Moles/Vol] 139 mmol/L Normal 136-145 [facility] Comment on above: Performed By: #### L 501.9985, L500.4050, L500.4100, L100.0100, L501.9520 #### [facility] [address] [place], [address] T PROT 7.5 g/dL Normal 6.4-8.2 [facility] Comment on above: Performed By: #### L 501.9985, L500.4050, L500.4100, L100.0100, L501.9520 #### [facility] [address] [place], [address] Urea nitrogen [Mass/Vol] 10 mg/dL Normal 7-18 [facility] Comment on above: Performed By: #### L 501.9985, L500.4050, L500.4100, L100.0100, L501.9520 #### [facility] [address] [place], [address] Hemoglobin A1con 09-27-2023 HbA1c (Bld) [Mass fraction] 4.4 % Normal 3.8-5.6 [facility] Comment on above: Result Comment: Norm al < 5.7 % Prediabetic 5.7 - 6.4 % Diabetic >or= 6.5 % Please note range changes. Performed By: #### L 501.9985, L500.4050, L500.4100, L100.0100, L501.9520 #### [facility] [address] [place], [address] Lipid Profileon 09-27-2023 Cholesterol [Mass/Vol] 132 mg/dL Normal 200 [facility] Comment on above: Result Comment: <200 mg/dL Desirable 200-240 mg/dL Borderline >240 mg/dL High Risk Performed By: #### L 501.9985, L500.4050, L500.4100, L100.0100, L501.9520 #### [facility] [address] [place], [address] Cholesterol in HDL [Mass/Vol] 50 mg/dL Normal [facility] Comment on above: Result Comment: The drugs N-Acetylcysteine and Metamizole may falsely depress this assay. Reference Range HDL <40 mg/dL Low HDL Cholesterol HDL >or= 60 mg/dL High HDL Cholesterol Performed By: #### L 501.9985, L500.4050, L500.4100, L100.0100, L501.9520 #### [facility] [address] [place], [address] Cholesterol in LDL [Mass/Vol] 57 mg/dL Normal 0-130 [facility] Comment on above: Performed By: #### L 501.9985, L500.4050, L500.4100, L100.0100, L501.9520 #### [facility] [address] [place], [address] Cholesterol in VLDL [Mass/Vol] 25 mg/dL Normal 5-40 [facility] Comment on above: Performed By: #### L 501.9985, L500.4050, L500.4100, L100.0100, L501.9520 #### [facility] [address] [place], [address] Triglyceride [Mass/Vol] 125 mg/dL Normal [facility] Comment on above: Result Comment: The drugs N-Acetylcysteine and Metamizole may falsely depress this assay. Serum Triglycerides Reference Interval Normal <150 mg/dL Borderline high 150 - 199 mg/dL High 200 - 499 mg/dL Very High > or = 500 mg/dL Performed By: #### L 501.9985, L500.4050, L500.4100, L100.0100, L501.9520 #### [facility] [address] [place], [address] Thyroid Stim Hormone (TSH)on 09-27-2023 TSH 1.83 uIU/mL Normal 0.358-3.74 [facility] Comment on above: Performed By: #### L 501.9985, L500.4050, L500.4100, L100.0100, L501.9520 #### [facility] [address] [place], [place], [address] Internal Medicine Office Vis iton 09-04-2023 Internal Medicine Office Visit [facility] [address] [place], [place] [address] OFFICE VISIT Date of Service: 09/05/23 MR#: [id number] Acct: [id number] Name: CHRISTA ARREGUIN Rep #: [id number] : 1990 Provider: Dr. Odin salinas MD Age/Sex: 33/F Location: [facility] Status: Signed Intake Vital Signs 02/26/23 13:27 [...] M FU Chief Complaint: 6 M FU Network Relations Consultant Required: No Is patient in pain?: No [...] Surgical History History of removal of cyst [place] teeth extracted Family History Father Myocardial infarction 70s Hypertension Social History (Updated 09/05/23 @ 15:[address] Odin Abraham MD) household members: other details: sober living current occupational status: employed current occupation: [employer] Smoking Status: Current every day smoker tobacco [...] work. She does have a membership with [employer] and plans on getting started there. The [...] wheezing Cardio (more content not included)... Normal [facility] STREP A MOLECULAR (POC)on Procedural Control Valid [facility] Strep A (POCT) Negative Negative [facility] COVID NAAT, UPPER RESPIRATOR Y, ROUTINEon 03-27-2023 SARS-CoV-2 (COVID-19) RNA KATELYNN+probe Ql (Resp) Not detected See comment [facility] ROUTINE FLU A/B + RSVon FLUAV RNA KATELYNN+probe Ql (Unsp spec) Not detected Not Detected [facility] FLUBV RNA KATELYNN+probe Ql (Unsp spec) Not detected Not Detected [facility] RSV A RNA KATELYNN+probe Ql (Unsp spec) Not detected Not Detected [facility] HCG QUAL UR B/Oon 01-08-2023 status Negative neg - pos [facility] Quality Check Yes [facility] Absolute lymphocyte countOrd ered By: Dr. Abraham on 08-09-2022 Lymphocytes Auto (Unsp spec) [#/Vol] 1.27 10*3/uL 0.83-4.51 [facility] Basophil percentageOrdered B y: Dr. Abraham on 08-09-2022 Basophils/100 WBC (Bld) 0.5 % 0-1 [facility] Bilirubin [Mass/Vol] 0.70 mg/dL 0.20-1.00 [facility] Comment on above: For patients on eltr ombopag therapy, use of Dimension Bovill TBIL is not recommended. Chloride [Moles/Vol] 107 mmol/L 98-107 [facility] Cholesterol [Mass/Vol] 164 mg/dL <200 [facility] Comment on above: <200 mg/dL Desirable 200-240 mg/dL Borderline >240 mg/dL High Risk Eosinophils/100 WBC (Bld) 0.8 % 0-5 [facility] Glucose [Mass/Vol] 95 mg/dL 74-106 [facility] Neutrophils (Bld) [#/Vol] 5.0 10*3/uL 2.0-7.7 [facility] Neutrophils/100 WBC (Bld) 74.7 % 47-70 [facility] Potassium [Moles/Vol] 3.6 mmol/L 3.5-5.1 [facility] Protein [Mass/Vol] 8.0 g/dL 6.4-8.2 [facility] Sodium [Moles/Vol] 141 mmol/L 136-145 [facility] Triglyceride [Mass/Vol] 136 mg/dL <199 [facility] Comment on above: The drugs N-Acetylcy steine and Metamizole may falsely depress this assay.Serum Triglycerides Reference Interval Normal <150 mg/dL Borderline high 150 - 199 mg/dL High 200 - 499 mg/dL Very High > or = 500 mg/dL WBC (Bld) [#/Vol] 6.7 10*3/uL 4.4-11.0 [facility] Blood erythrocytes count (nu mber/volume)Ordered By: Dr. Abraham on 08-09-2022 RBC (Bld) [#/Vol] 4.46 10*6/uL 4.2-5.4 [facility] Blood hemoglobin measurement (mass/volume)Ordered By: Dr. Abraham on 08-09-2022 Hemoglobin (Bld) [Mass/Vol] 13.7 g/dL 12.0-15.0 [facility] Blood lymphocytes/100 leukoc ytesOrdered By: Dr. Abraham on 08-09-2022 Lymphocytes/100 WBC (Bld) 19.1 % 19-41 [facility] Blood monocytes/100 leukocyt esOrdered By: Dr. Abraham on 08-09-2022 Monocytes/100 WBC (Bld) 4.7 % 0-10 [facility] Blood platelet mean volumeOr dered By: Dr. Abraham on 08-09-2022 Platelet mean volume (Bld) [Entitic vol] 9.4 fL 6.2-12.0 [facility] Determination of erythrocyte mean corpuscular volume (MCV)Ordered By: Dr. Abraham on 08-09-2022 MCV (RBC) [Entitic vol] 91.7 fL 81-99 [facility] HIV 1 and HIV-2 antibody ass ay with HIV-1 p24 antigen detectionOrdered By: Dr. Abraham on 08-09-2022 HIV 1+2 Ab+HIV1 p24 Ag IA Ql Non-Reactive Nonreactive [facility] Hematocrit Auto (Bld) [Volum e fraction]Ordered By: Dr. Abraham on 08-09-2022 Hematocrit (Bld) [Volume fraction] 40.9 % 37-47 [facility] - Chemistry and C hemistry - challengeOrdered By: Dr. Abraham on 08-09-2022 ALP [Catalytic activity/Vol] 45 U/L 45-117 [facility] ALT [Catalytic activity/Vol] 17 U/L 13-56 [facility] CO2 [Moles/Vol] 27.0 mmol/L 21.0-32.0 [facility] Globulin (S) [Mass/Vol] 3.6 g/dL 2.2-4.2 [facility] Urea nitrogen/Creatinine [Mass ratio] 11.6 mg/mg 10-20 [facility] - Hematology and Cell countsOrdered By: Dr. Abraham on 08-09-2022 Erythrocyte distribution width (RBC) [Entitic vol] 41.6 fL 35.1-43.9 [facility] Erythrocyte distribution width (RBC) [Ratio] 12.6 % 11.6-14.6 [facility] Immature granulocytes/100 WBC (Bld) 0.200 % 0.0-0.9 [facility] Comment on above: IG% - Immature Granu locytes (promyelocytes, myelocytes and metamyelocytes) > 1% indicates that a LEFT SHIFT is Present. MCH (RBC) [Entitic mass] 30.7 pg 27.0-32.0 [facility] Nucleated RBC/100 WBC (Bld) [Ratio] 0 % 0-5 [facility] MCHC Auto (RBC) [Mass/Vol]Or dered By: Dr. Abraham on 08-09-2022 MCHC (RBC) [Mass/Vol] 33.5 g/dL 32-36 [facility] No Panel InformationOrdered By: Dr. Abraham on 08-09-2022 Estimated GFR (MDRD) Amer 98 mL/min >60 [facility] Comment on above: GFR Calc Estimated GFR (MDRD) Non-Af Amer 81 mL/min >60 [facility] Comment on above: Non- GFR Calc Hepatitis A IgM Antibody Negative Negative [facility] Hepatitis B Core IgM Antibody Negative Negative [facility] Hepatitis C Antibody (EIA) Non-Reactive Non Reactive [facility] Hepatitis C Antibody Comment Comment . [facility] [facility] Comment on above: Not infected with HC V unless early or acute infection issuspected (which may be delayed in an immunocompromisedindividual), or other evidence exists to indicate HCVinfection.Performed at: - [facility] [id number] [place], [place] [id number] Director: Steve Salas PhD, Phone: [phone] Thyroid Stimulating Hormone (TSH) 1.22 uIU/mL 0.358-3.74 [facility] Platelets bldOrdered By: Dr. Abraham on 08-09-2022 Platelets (Bld) [#/Vol] 255 10*3/uL 150-450 [facility] Serum or plasma albumin bebeto urement (mass/volume)Ordered By: Dr. Abraham on 08-09-2022 Albumin [Mass/Vol] 4.4 g/dL 3.2-5.0 [facility] Serum or plasma albumin/glob ulin mass ratioOrdered By: Dr. Abraham on 08-09-2022 Albumin/Globulin [Mass ratio] 1.2 {ratio} 0.9-2.4 [facility] Serum or plasma calcium bebeto urement (mass/volume)Ordered By: Dr. Abraham on 08-09-2022 Calcium [Mass/Vol] 9.3 mg/dL 8.5-10.1 [facility] Serum or plasma cholesterol in HDL measurement (mass/volume)Ordered By: Dr. Abraham on 08-09-2022 Cholesterol in HDL [Mass/Vol] 62 mg/dL >40 [facility] Comment on above: The drugs N-Acetylcy steine and Metamizole may falsely depress this assay. Reference Range HDL <40 mg/dL Low HDL Cholesterol HDL >or= 60 mg/dL High HDL Cholesterol Serum or plasma cholesterol in VLDL measurement (mass/volume)Ordered By: Dr. Abraham on 08-09-2022 Cholesterol in VLDL [Mass/Vol] 27 mg/dL 5-40 [facility] Serum or plasma creatinine m easurement (mass/volume)Ordered By: Dr. Abraham on 08-09-2022 Creatinine [Mass/Vol] 0.86 mg/dL 0.55-1.02 [facility] Comment on above: The validity of the calculated GFR & GFRAA in patients over 70 years has not been determined. Clinical correlation is essential. Serum or plasma hepatitis B virus surface antigen detection by immunoassayOrdered By: Dr. Abraham on 08-09-2022 HBV surface Ag IA Ql Negative Negative [facility] Serum or plasma low density lipoprotein (LDL) cholesterol measurement (mass/volume)Ordered By: Dr. Abraham on 08-09-2022 Cholesterol in LDL [Mass/Vol] 75 mg/dL 0-130 [facility] Serum or plasma urea nitroge n measurement (mass/volume)Ordered By: Dr. Abraham on 08-09-2022 Urea nitrogen [Mass/Vol] 10 mg/dL 7-18 [facility] Thin prep Papanicolaou smear with manual screeningOrdered By: Dr. Abraham on 08-09-2022 Thin prep Papanicolaou smear with manual screening 9 U/L 15-37 [facility] Thin prep Papanicolaou smear with manual screening 7 5-15 [facility] Whole blood hemoglobin A1c/t otal hemoglobin ratio (mass fraction)Ordered By: Dr. Abraham on 08-09-2022 HbA1c (Bld) [Mass fraction] 4.5 % 3.8-5.6 [facility] Comment on above: Normal < 5.7 % Predi abetic 5.7 - 6.4 % Diabetic >or= 6.5 % Please note range changes. 2019 Novel Coronavirus (CoVI D-19), NAAon 02-29-2020 SARS-CoV-2, KATELYNN Not Detected Normal Not Detected [facility] Comment on above: Result Comment: This nucleic acid amplification test was developed and its performance characteristics determined by [employer]. Nucleic acid amplification tests include PCR and [...] detected) result in this assay. Performed at: [facility] [address] [facility] [place] [id number] Board Stacker: Hermilo Campos MD, Phone: [phone] Performed By: #### C BC #### [address] [address] CXTHNon 02-18-2020 CXTHN Patient: NEVAEH ARRGEUIN [id number] Location: [facility] Aount: [id number] : 1990 Age: 30 Sex F Lab NumbEr [id number] Requested by: PHUONG CROWDER Admitdate: 02/18/20 Source: THR Collected: 02/18/20 18:49 Site: Received : 02/18/20 19:17 Culture, Throat-Strep FINAL 02/20/20 10:32 02/20/[address] GR A: NEGATIVE FOR GROUP A BETA-HEMOLYTIC STREPTOCOCCUS Normal [facility] Comment on above: Performed By: #### C BC #### [address] [address] EMERGENCY DEPARTMENTon 11-24 EMERGENCY DEPARTMENT [address] [id number] HEALTH INFORMATION MANAGEMENT EMERGENCY DEPARTMENT : Signed Patient: NEVAEH ARREGUIN Acct:[id number] MRU N: [id number] : 1990 Sex: F Loc: ED ADM [...] Abuse: No Hx Suspected Abuse: No - [place]/Gender ID What is your current Gender Identity? Choose all that Apply: Female - [place]-Suicide Severity Rating Scale 1) Wish to be [...] ideation - Skin Skin Color: Present: Normal, [place] Skin exam: Present: warm, dry - Expanded [...] % Lymph % (Auto) 21.8 (17.0-45.5) % [place] % (Auto) 7.3 (5.5-11.7) % Eos % [...] 14 (6-20) Glucose 90 (65-100) mg/dL Specific [place] (1.015-1.025) Calcium 8.6 (8.2-10.0) mg/dL Phosphorus (2.5-4.9) [...] Urine Appearance (Clear) Urine pH Ur Specific [place] (1.015-1.025) Urine Protein (Negative) Urine Ketones (Negative) [...] (43.0-65.0) % Lymph % (Auto) (17.0-45.5) % [place] % (Auto) (5.5-11.7) % Eos % (Auto) [...] BUN/Creatinine Ratio (6-20) Glucose (65-100) mg/dL Specific [place] 1.010 L (1.015-1.025) Calcium (8.2-10.0) mg/dL Phosphorus [...] (Clear) Urine pH 8 8.0 Ur Specific [place] 1.010 L (1.015-1.025) Urine Protein Negative (Negative) [...] (43.0-65.0) % Lymph % (Auto) (17.0-45.5) % [place] % (Auto) (5.5-11.7) % Eos % (Auto) [...] BUN/Creatinine Ratio (6-20) Glucose (65-100) mg/dL Specific [place] (1.015-1.025) Calcium (8.2-10.0) mg/dL Phosphorus (2.5-4.9) mg/dL Magnesium (1.3-2.3) mg/dL Total Bilirubin (0.00-0.99) mg/dL AST (3-39) U/L ALT (13-66) U/L Alkaline Phosphatase (54-112) U/L Troponin I, Quant (0.000-0.056) ng/mL Total Protein (6.1-8.2) g/dL Albumin (3.4-5.0) g/dL Globulin (1.5-4.5) g/dL Albumin/Globulin Ratio (1.1-2.5) Beta HCG, Quant mIU/mL Urine Color (Yellow) Urine Appearance (Clear) Urine pH Ur Specific [place] (1.015-1.025) Urine Protein (Negative) Urine Ketones (Negative) [...] report for findings IMPRESSIONS Electrocardiogram 11/18/19 14:38 [facility] ED Test Date: 2019-11-18 Test Time: 17:12:16 Pat Name: NEVAEH ARREGUIN Department: Room: Gender: F Code Inspector: DWAINE : 1990 Requested By: BRIDGETT JOE Order Number: [id number] Reading MD: BRIDGETT JOE Measurements Intervals [place] Rate: 110 P: 72 MN: 133 QRS: 81 QRSD: 80 T: -1 QT: 343 QTc: 465 Interpretive Statements Sinus tachycardia Probable left atrial enlargement Borderline T abnormalities, inferior leads No previous ECG available for comparison Electronically Signed On 11-18-2019 19:07:58 EDT by BRIDGETT JOE Chest X-Ray 11/18/19 16:17 IMPRESSION: No acute process. Electrocardiogram 11/18/19 17:09 [facility] ED Test Date: 2019-11-18 Test Time: 14:27:48 Pat Name: NEVAEH ARREGUIN Department: Room: Gender: F Code Inspector: DWAINE : 1990 Requested By: BRIDGETT JOE Order Number: [id number] Jeanne MD: Measurements Intervals [place] Rate: 105 P: 71 MN: 137 QRS: 78 QRSD: 88 T: 1 QT: 347 QTc: 459 Interpretive Statements Sinus tachycardia Probable left atrial enlargement No previous ECG available for comparison - Medical Decision Making Patient was tachycardic upon arrival to the emergency room. She denied any suicidal or homicidal ideation EKG showed sinus tachycardia, normal [place], QTc was 452 Consulted poison control who [...] do not have admission beds available at [facility] hence patient be transferred to [facility] for admission, supportive treatment and for cardiology consult Patient accepted at [facility]. Please see transfer record for further details Patient speech and grasp are intact. No acute neurovascular deficits noted. Patient states understanding of transfer to [facility] and agrees with management and plan - [...] management, discussion with poison control, discussion with employee relation manager, arranging transfer of patient to tertiary care [...] Agreed With?: Yes - Dictation Amendments/Documentat ion: [email or web address] Document Only Electronically Generated By: BRIDGETT JOE MD Generated Date/Time: 11/18/19 1557 Electronically Signed By: BRIDGETT JOE MD Signed Date/Time 11/25/19 1827 Co Signed Electronically By: Co Signed Date/Time: CC: GEORGI GILLETTE Normal [facility] .GFRon 11-21-2019 GFR Non- >60 Normal [facility] ([place]) Comment on above: Result Comment: GFR Population [...] meters Performed By: #### T KHAI #### [place] [address] GFR >60 Normal [facility] ([place]) Comment on above: Result Comment: GFR Population [...] meters Performed By: #### T KHAI #### [address] [address] [facility] 11-21-2019 Creatinine [Mass/Vol] 0.68 mg/dL Normal 0.50-1.20 [facility] ([place]) Comment on above: Performed By: #### T KHAI #### [address] [address] Urea nitrogen/Creatinine [Mass ratio] 13.2 ratio Normal 10.0-22.0 [facility] ([place]) Comment on above: Performed By: #### T KHAI #### [address] [address] Calcium [Mass/Vol] 9.3 mg/dL Normal 8.4-10.1 [facility] ([place]) Comment on above: Performed By: #### T KHAI #### [address] [address] Chloride [Moles/Vol] 114 mmol/L High 98-110 [facility] ([place]) Comment on above: Performed By: #### T ORTIZI #### [address] [address] CO2 [Moles/Vol] 23 mmol/L Normal 22-32 [facility] ([place]) Comment on above: Performed By: #### T ORTIZI #### [address] [address] Electrolyte Balance 8.0 mEq/L Normal 4.0-15.0 [facility] ([place]) Comment on above: Performed By: #### T KHAI #### [address] [address] Glucose [Mass/Vol] 95 mg/dL Normal 70-110 [facility] ([place] Comment on above: Performed By: #### T ROPI #### [place] [id number] Potassium [Moles/Vol] 3.2 mmol/L Low 3.5-5.0 [facility] ([place] Comment on above: Performed By: #### T ROPI #### [place] [id number] Sodium [Moles/Vol] 145 mmol/L Normal 136-145 [facility] ([place] Comment on above: Performed By: #### T ORTIZI #### [place] [id number] Urea nitrogen [Mass/Vol] 9.0 mg/dL Normal 8.0-22.0 [facility] ([place]) Comment on above: Performed By: #### T ORTIZI #### [place] [address] .Auto Diffon 11-20-2019 Ammonia (P) [Mass/Vol] 0.40 10 3/mcL Normal 0.09-1.40 [facility] ([place]) Comment on above: Performed By: #### T ROPI #### [address] [address] Basophils (Bld) [#/Vol] 0.00 10 3/mcL Normal 0.00-0.27 [facility] ([place]) Comment on above: Performed By: #### T ROPI #### [address] [address] Basophils/100 WBC (Bld) 0.2 % Normal 0.0-2.5 [facility] ([place]) Comment on above: Performed By: #### T ROPI #### [address] [address] Eosinophils (Bld) [#/Vol] 0.00 10 3/mcL Normal 0.00-0.65 [facility] ([place]) Comment on above: Performed By: #### T ROPI #### [address] [address] Eosinophils/100 WBC (Bld) 0.4 % Normal 0.0-6.0 [facility] ([place]) Comment on above: Performed By: #### T ROPI #### [address] [address] Lymphocytes (Bld) [#/Vol] 1.20 10 3/mcL Normal 0.90-4.32 [facility] ([place]) Comment on above: Performed By: #### T ROPI #### [address] [address] Lymphocytes/100 WBC (Bld) 21.0 % Normal 20.0-40.0 [facility] ([place]) Comment on above: Performed By: #### T ROPI #### [address] [address] Monocytes/100 WBC (Bld) 6.7 % Normal 2.0-13.0 [facility] ([place]) Comment on above: Performed By: #### T ROPI #### [address] [address] Neutrophils/100 WBC (Bld) 71.7 % Normal 50.0-75.0 [facility] ([place]) Comment on above: Performed By: #### T ROPI #### [address] [address] .GFRon 11-20-2019 GFR >60 Normal [facility] ([place]) Comment on above: Result Comment: GFR Population [...] meters Performed By: #### T ORTIZI #### [place] [id number] GFR Non- >60 Normal [facility] ([place]) Comment on above: Result Comment: GFR Population [...] meters Performed By: #### T KHAI #### [place] [address] .NEUABSon 11-20-2019 Neutrophils (Bld) [#/Vol] 3.90 10 3/mcL Normal 2.25-8.10 [facility] ([place]) Comment on above: Performed By: #### T KHAI #### [place] [id number] CBCon 11-20-2019 Erythrocyte distribution width (RBC) [Ratio] 13.7 % Normal 11.5-15.5 [facility] ([place]) Comment on above: Performed By: #### T ORTIZI #### [place] [id number] Hematocrit (Bld) [Volume fraction] 34.4 % Normal 34.0-46.0 [facility] ([place]) Comment on above: Performed By: #### T ORTIZI #### [place] [id number] Hemoglobin (Bld) [Mass/Vol] 12.1 G/dL Normal 12.0-16.0 [facility] ([place]) Comment on above: Performed By: #### T KHAI #### [place] [id number] MCH (RBC) [Entitic mass] 31.1 pg Normal 27.0-33.0 [facility] ([place]) Comment on above: Performed By: #### T KHAI #### [address] [address] MCHC (RBC) [Mass/Vol] 35.1 G/dL Normal 32.0-36.0 [facility] ([place] Comment on above: Performed By: #### T KHAI #### [place] [id number] MCV (RBC) [Entitic vol] 88.5 fL Normal 80.0-99.0 [facility] ([place]) Comment on above: Performed By: #### T KHAI #### [place] [id number] Platelet mean volume (Bld) [Entitic vol] 7.3 fL Normal 6.6-10.5 [facility] ([place]) Comment on above: Performed By: #### Ilda RIDLEY #### [place] [id number] Platelets (Bld) [#/Vol] 252 10 3/mcL Normal 150-450 [facility] ([place] Comment on above: Performed By: #### T KHAI #### [place] [id number] RBC (Bld) [#/Vol] 3.89 10 6/mcL Low 4.10-5.30 [facility] ([place]) Comment on above: Performed By: #### Ilda RIDLEY #### [place] [id number] WBC (Bld) [#/Vol] 5.50 10 3/mcL Normal 4.50-10.80 [facility] ([place]) Comment on above: Performed By: #### T KHAI #### [address] [address] CMPon 11-20-2019 Albumin/Globulin [Mass ratio] 1.1 {ratio} Normal 0.9-1.6 [facility] ([place]) Comment on above: Performed By: #### T ROPI #### [address] [address] ALP [Catalytic activity/Vol] 42 U/L Normal 38-126 [facility] ([place] Comment on above: Performed By: #### T ROPI #### [address] [address] ALT [Catalytic activity/Vol] 23 U/L Normal 10-49 [facility] ([place] Comment on above: Performed By: #### T ROPI #### [address] [address] Bili Total 1.0 mg/dL Normal 0.2-1.2 [facility] ([place]) Comment on above: Result Comment: Use of this assay is not recommended for patients undergoing treatment with eltrombopag due to the potential for falsely elevated results. Performed By: #### T ORTIZI #### [place] [id number] Creatinine [Mass/Vol] 0.58 mg/dL Normal 0.50-1.20 [facility] ([place] Comment on above: Performed By: #### T ROPI #### [address] [address] Globulin (S) [Mass/Vol] 3.2 G/dL Normal 1.5-3.8 [facility] ([place]) Comment on above: Performed By: #### T ROPI #### [address] [address] Protein [Mass/Vol] 6.6 G/dL Normal 6.0-8.5 [facility] ([place] Comment on above: Performed By: #### T ROPI #### [address] [address] Urea nitrogen/Creatinine [Mass ratio] 15.5 ratio Normal 10.0-22.0 [facility] ([place] Comment on above: Performed By: #### T ROPI #### [address] [address] Albumin [Mass/Vol] 3.4 G/dL Normal 3.2-4.8 [facility] ([place] Comment on above: Performed By: #### T ROPI #### [address] [address] AST [Catalytic activity/Vol] 15 U/L Normal 8-34 [facility] ([place] Comment on above: Performed By: #### T ROPI #### [address] [address] Calcium [Mass/Vol] 8.8 mg/dL Normal 8.4-10.1 [facility] ([place] Comment on above: Performed By: #### T ROPI #### [address] [address] Chloride [Moles/Vol] 113 mmol/L High 98-110 [facility] ([place] Comment on above: Performed By: #### T ROPI #### [address] [address] CO2 [Moles/Vol] 20 mmol/L Low 22-32 [facility] ([place] Comment on above: Performed By: #### T ROPI #### [address] [address] Electrolyte Balance 8.0 mEq/L Normal 4.0-15.0 [facility] ([place] Comment on above: Performed By: #### T ROPI #### [address] [address] Glucose [Mass/Vol] 89 mg/dL Normal 70-110 [facility] ([place] Comment on above: Performed By: #### T ROPI #### [address] [address] Potassium [Moles/Vol] 3.6 mmol/L Normal 3.5-5.0 [facility] ([place] Comment on above: Performed By: #### T ROPI #### [address] [address] Sodium [Moles/Vol] 141 mmol/L Normal 136-145 [facility] ([place] Comment on above: Performed By: #### T ROPI #### [address] [address] Urea nitrogen [Mass/Vol] 9.0 mg/dL Normal 8.0-22.0 [facility] ([place] Comment on above: Performed By: #### T ORTIZI #### [place] [id number] DRUGUon 11-20-2019 Drug Screen Urine Negative Normal [facility] ([place] Comment on above: Performed By: #### T ORTIZI #### [place] [address] Drug Screen Urine Interp Urine shows no evidence of drugs routinely screened. [facility] ([place] Comment on above: Performed By: #### T ORTIZI #### [place] [id number] U pH Drug Scrn 7.0 Normal 5.0-8.0 [facility] ([place] Comment on above: Performed By: #### T ORTIZI #### [place] [address] U Specific [place] Drg Scrn 1.012 Normal 1.005-1.030 [facility] ([place] Comment on above: Performed By: #### T KHAI #### [place] [address] Urine Drugs screened: See Below Normal [facility] ([place] Comment on above: Result Comment: This drug [...] ONLY. Performed By: #### T KHAI #### [address] [address] MGon 11-20-2019 Magnesium [Mass/Vol] 2.0 mg/dL Normal 1.6-2.4 [facility] ([place]) Comment on above: Performed By: #### T ORTIZI #### [place] [address] .Auto Diffon 11-19-2019 Ammonia (P) [Mass/Vol] 0.20 10 3/mcL Normal 0.09-1.40 [facility] ([place]) Comment on above: Performed By: #### C BC, ADIFF, ANEU, DRUGS #### [address] [address] Basophils (Bld) [#/Vol] 0.00 10 3/mcL Normal 0.00-0.27 [facility] ([place]) Comment on above: Performed By: #### C BC, ADIFF, ANEU, DRUGS #### [address] [address] Basophils/100 WBC (Bld) 0.1 % Normal 0.0-2.5 [facility] ([place]) Comment on above: Performed By: #### C BC, ADIFF, ANEU, DRUGS #### [address] [address] Eosinophils (Bld) [#/Vol] 0.00 10 3/mcL Normal 0.00-0.65 [facility] ([place]) Comment on above: Performed By: #### C BC, ADIFF, ANEU, DRUGS #### [address] [address] Eosinophils/100 WBC (Bld) 0.1 % Normal 0.0-6.0 [facility] ([place]) Comment on above: Performed By: #### C BC, ADIFF, ANEU, DRUGS #### [address] [address] Lymphocytes (Bld) [#/Vol] 0.80 10 3/mcL Low 0.90-4.32 [facility] ([place]) Comment on above: Performed By: #### C BC, ADIFF, ANEU, DRUGS #### [address] [address] Lymphocytes/100 WBC (Bld) 16.0 % Low 20.0-40.0 [facility] ([place]) Comment on above: Performed By: #### C BC, ADIFF, ANEU, DRUGS #### [address] [address] Monocytes/100 WBC (Bld) 4.5 % Normal 2.0-13.0 [facility] ([place]) Comment on above: Performed By: #### C BCMARICRUZ, ANEU, DRUGS #### [address] [address] Neutrophils/100 WBC (Bld) 79.3 % High 50.0-75.0 [facility] ([place]) Comment on above: Performed By: #### C BCMARICRUZ, ANEU, DRUGS #### [address] [address] .GFRon 11-19-2019 GFR >60 Normal [facility] ([place]) Comment on above: Result Comment: GFR Population [...] meters Performed By: #### T KHAI #### [address] [address] GFR Non- >60 Normal [facility] ([place]) Comment on above: Result Comment: GFR Population [...] meters Performed By: #### T ROPI #### [address] [address] .NEUABSon 11-19-2019 Neutrophils (Bld) [#/Vol] 4.20 10 3/mcL Normal 2.25-8.10 [facility] ([place] Comment on above: Performed By: #### C BC, ADIFF, ANEU, DRUGS #### [address] [address] BMPon 11-19-2019 Creatinine [Mass/Vol] 0.55 mg/dL Normal 0.50-1.20 [facility] ([place] Comment on above: Performed By: #### B MP, TSH, GFR #### [place] [address] Urea nitrogen/Creatinine [Mass ratio] 14.5 ratio Normal 10.0-22.0 [facility] ([place] Comment on above: Performed By: #### B MP, TSH, GFR #### [place] [id number] Calcium [Mass/Vol] 8.7 mg/dL Normal 8.4-10.1 [facility] ([place] Comment on above: Performed By: #### B MP, TSH, GFR #### [place] [id number] Chloride [Moles/Vol] 112 mmol/L High 98-110 [facility] ([place] Comment on above: Performed By: #### B MP, TSH, GFR #### [place] [id number] CO2 [Moles/Vol] 22 mmol/L Normal 22-32 [facility] ([place] Comment on above: Performed By: #### B MP, TSH, GFR #### [place] [id number] Electrolyte Balance 8.0 mEq/L Normal 4.0-15.0 [facility] ([place] Comment on above: Performed By: #### B MP, TSH, GFR #### [place] [id number] Glucose [Mass/Vol] 94 mg/dL Normal 70-110 [facility] ([place] Comment on above: Performed By: #### B MP, TSH, GFR #### [address] [address] Potassium [Moles/Vol] 3.4 mmol/L Low 3.5-5.0 [facility] ([place] Comment on above: Performed By: #### B MP, TSH, GFR #### [address] [address] Sodium [Moles/Vol] 142 mmol/L Normal 136-145 [facility] ([place] Comment on above: Performed By: #### B MP, TSH, GFR #### [address] [address] Urea nitrogen [Mass/Vol] 8.0 mg/dL Normal 8.0-22.0 [facility] ([place] Comment on above: Performed By: #### B MP, TSH, GFR #### [address] [address] CBCon 11-19-2019 Erythrocyte distribution width (RBC) [Ratio] 14.0 % Normal 11.5-15.5 [facility] ([place] Comment on above: Performed By: #### C MARICRUZ SUAREZ ANEU, DRUGS #### [address] [address] Hematocrit (Bld) [Volume fraction] 34.9 % Normal 34.0-46.0 [facility] ([place]) Comment on above: Performed By: #### C BC, MARICRUZ ANEU, DRUGS #### [address] [address] Hemoglobin (Bld) [Mass/Vol] 12.1 G/dL Normal 12.0-16.0 [facility] ([place]) Comment on above: Performed By: #### C BC, MARICRUZ ANEU, DRUGS #### [address] [address] MCH (RBC) [Entitic mass] 31.1 pg Normal 27.0-33.0 [facility] ([place] Comment on above: Performed By: #### C BC, ADIFF, ANEU, DRUGS #### [address] [address] MCHC (RBC) [Mass/Vol] 34.6 G/dL Normal 32.0-36.0 [facility] ([place] Comment on above: Performed By: #### C BC, ADIFF, ANEU, DRUGS #### [place] [id number] MCV (RBC) [Entitic vol] 89.7 fL Normal 80.0-99.0 [facility] ([place] Comment on above: Performed By: #### C BC, ADIFF, ANEU, DRUGS #### [address] [address] Platelet mean volume (Bld) [Entitic vol] 7.2 fL Normal 6.6-10.5 [facility] ([place] Comment on above: Performed By: #### C BC, ADIFF, ANEU, DRUGS #### [place] [id number] Platelets (Bld) [#/Vol] 249 10 3/mcL Normal 150-450 [facility] ([place] Comment on above: Performed By: #### C BC, ADIFF, ANEU, DRUGS #### [address] [address] RBC (Bld) [#/Vol] 3.89 10 6/mcL Low 4.10-5.30 [facility] ([place]) Comment on above: Performed By: #### C BC, ADIFF, ANEU, DRUGS #### [place] [id number] WBC (Bld) [#/Vol] 5.30 10 3/mcL Normal 4.50-10.80 [facility] ([place]) Comment on above: Performed By: #### C BC, ADIFF, ANEU, DRUGS #### [place] [address] DIMERon 11-19-2019 Fibrin D-dimer FEU IA (Bld) [Mass/Vol] 208 ng/mL D-DU Normal 0-230 [facility] ([place] Comment on above: Result Comment: Resu lts [...] accordingly. Performed By: #### D STEPHANIE #### [place] [address] DRUGSon 11-19-2019 Acetaminophen [Mass/Vol] <2.0 Low 10.0-30.0 [facility] ([place] Comment on above: Performed By: #### C BC, ADIFF, ANEU, DRUGS #### [place] [address] Drug Screen (s) Negative Normal Negative [facility] ([place] Comment on above: Performed By: #### C BC, ADIFF, ANEU, DRUGS #### [place] [address] Drug Screen Interp Serum shows no evidence of drugs routinely screened [facility] ([place] Comment on above: Performed By: #### C BC, ADIFF, ANEU, DRUGS #### [place] [address] Ethanol Level <10.0 Normal [facility] ([place] Comment on above: Performed By: #### C BC, ADIFF, ANEU, DRUGS #### [place] [address] Salicylate Lvl (ds) <2.0 Low 10.0-25.0 [facility] ([place] Comment on above: Performed By: #### C BC, ADIFF, ANEU, DRUGS #### [place] [address] Serum Drugs screened: See Below Normal [facility] ([place] Comment on above: Result Comment: This drug screen is a presumptive screening only. No confirmation will be performed unless requested. Drugs included in the ER serum drug screen are: Threshold Ethanol 10.0 mg/dL Salicylate 2.0 mg/dl Acetaminophen 2.0 mcg/mL Tricyclic Antidepressants 300 ng/mL Testing has been performed FOR MEDICAL PURPOSES ONLY. Performed By: #### C BC, ADSHAJI, ANEU, DRUGS #### [address] [address] TCA (s) Negative Normal [facility] ([place]) Comment on above: Performed By: #### C BC, ADIFF, ANEU, DRUGS #### [address] [address] FT4on 11-19-2019 Free T4 [Mass/Vol] 1.03 ng/dL Normal 0.60-1.70 [facility] ([place]) Comment on above: Performed By: #### T ORTIZI #### [address] [address] TROPIon 11-19-2019 Troponin I.cardiac [Mass/Vol] ng/mL Normal 0.000-0.040 [facility] ([place]) Comment on above: Result Comment: Trop onin I reference ranges (01/25/14): 0.00-0.040 ng/mL Negative and non-diagnostic. >0.040 ng/mL Consistent with cardiac damage, increased clinical risk and possibility of myocardial infarction. Serial measurements, a rise & fall in test results, clinical history, appropriate symptoms and/or ECG changes may help assess possibility of MN. *Other non-acute coronary syndrome conditions such as CHF, myocarditis, pulmonary emboli, sepsis and cardiac surgery could result in myocardial damage and increased troponin levels. Performed By: #### T ROPI #### [address] [address] Troponin I.cardiac [Mass/Vol] ng/mL Normal 0.000-0.040 [facility] ([place]) Comment on above: Result Comment: Trop onin I reference ranges (01/25/14): 0.00-0.040 ng/mL Negative and non-diagnostic. >0.040 ng/mL Consistent with cardiac damage, increased clinical risk and possibility of myocardial infarction. Serial measurements, a rise & fall in test results, clinical history, appropriate symptoms and/or ECG changes may help assess possibility of MN. *Other non-acute coronary syndrome conditions such as CHF, myocarditis, pulmonary emboli, sepsis and cardiac surgery could result in myocardial damage and increased troponin levels. Performed By: #### T ROPI #### [address] [address] Troponin I.cardiac [Mass/Vol] ng/mL Normal 0.000-0.040 [facility] ([place]) Comment on above: Result Comment: Trop onin I reference ranges (01/25/14): 0.00-0.040 ng/mL Negative and non-diagnostic. >0.040 ng/mL Consistent with cardiac damage, increased clinical risk and possibility of myocardial infarction. Serial measurements, a rise & fall in test results, clinical history, appropriate symptoms and/or ECG changes may help assess possibility of MN. *Other non-acute coronary syndrome conditions such as CHF, myocarditis, pulmonary emboli, sepsis and cardiac surgery could result in myocardial damage and increased troponin levels. Performed By: #### T KHAI #### [address] [address] TSHon 11-19-2019 TSH Qn 0.150 mcIU/mL Low 0.360-3.740 [facility] ([place]) Comment on above: Performed By: #### T KHAI #### [address] [address] XR CHEST 1 VIEWon 11-19-2019 XR CHEST [...] Date: 11/19/2019 3:25:16 PM Ordering Provider:Jonnathan Johnson [facility] ([place]) Acetm Level W/ doseon 2019 Acetaminophen [Mass/Vol] <2.0 Low 10.0-30.0 [facility] Comment on above: Performed By: #### A CETM #### [facility] [place] [address] [place] [address] CBC w/Auto Differentialon Anemia [employer]ER [employer] MACHINE OPERATOR Normal [facility] Comment on above: Performed By: #### C BC #### [facility] [place] [address] [place] [address] Anisocytosis Ql (Bld) [employer]ER [employer] MACHINE OPERATOR Normal [facility] Comment on above: Performed By: #### C BC #### [facility] [place] [address] [place] [address] Basophils Abs. # 0.0 K/uL Normal 0.0-0.1 [facility] Comment on above: Performed By: #### C BC #### [facility] [place] [address] [place] [address] Basophils/100 WBC (Bld) 0.3 % Normal 0.2-1.0 [facility] Comment on above: Performed By: #### C BC #### [facility] [place] [address] [place] [address] Basophils/100 WBC (Bld) [employer] MACHINE OPERATOR Normal [facility] Comment on above: Performed By: #### C BC #### [facility] [place] [address] [place] [address] Bosophillia # [employer]ER [employer] MACHINE OPERATOR Normal [facility] Comment on above: Performed By: #### C BC #### [facility] [place] [address] [place] [address] Eosinophils (Bld) [#/Vol] [employer]ER [employer] MACHINE OPERATOR Normal [facility] Comment on above: Performed By: #### C BC #### [facility] [place] [address] [place] [address] Eosinophils (Bld) [#/Vol] 0.1 10*3/uL Normal 0.0-0.2 [facility] Comment on above: Performed By: #### C BC #### [facility] [place] [address] [place] [address] Eosinophils/100 WBC (Bld) [employer] MACHINE OPERATOR Normal [facility] Comment on above: Performed By: #### C BC #### [facility] [place] [address] [place] [address] Eosinophils/100 WBC (Bld) 1.3 % Normal 0.9-2.9 [facility] Comment on above: Performed By: #### C BC #### [facility] [place] [address] [place] [address] Erythocytosis [employer] MACHINE OPERATOR Normal [facility] Comment on above: Performed By: #### C BC #### [facility] [address] [place] [address] Erythrocyte distribution width (RBC) [Ratio] 14.3 % Normal 11.5-14.5 [facility] Comment on above: Performed By: #### C BC #### [facility] [place] [address] [place] [address] Hematocrit (Bld) [Volume fraction] 32.8 % Low 33.4-46.0 [facility] Comment on above: Performed By: #### C BC #### [facility] [place] [address] [place] [address] Hemoglobin (Bld) [Mass/Vol] 11.3 g/dL Normal 11.1-13.7 [facility] Comment on above: Performed By: #### C BC #### [facility] [place] [address] [place] [address] Hypochromia [employer] MACHINE OPERATOR Normal [facility] Comment on above: Performed By: #### C BC #### [facility] [place] [address] [place] [address] Large Platelets [employer] MACHINE OPERATOR Normal [facility] Comment on above: Performed By: #### C BC #### [facility] [place] [address] [place] [address] Leukocytosis [employer] MACHINE OPERATOR Normal [facility] Comment on above: Performed By: #### C BC #### [facility] [place] [address] [place] [address] Leukopenia [employer] MACHINE OPERATOR Normal [facility] Comment on above: Performed By: #### C BC #### [facility] [place] [address] [place] [address] Lymphocytes (Bld) [#/Vol] 1.3 10*3/uL Normal 1.3-2.9 [facility] Comment on above: Performed By: #### C BC #### [facility] [place] [address] [place] [address] Lymphocytes (Bld) [#/Vol] [employer] MACHINE OPERATOR Normal [facility] Comment on above: Performed By: #### C BC #### [facility] [place] [address] [place] [address] Lymphocytes/100 WBC (Bld) 21.8 % Normal 17.0-45.5 [facility] Comment on above: Performed By: #### C BC #### [facility] [place] [address] [place] [address] Lymphocytes/100 WBC (Bld) [employer] MACHINE OPERATOR Normal [facility] Comment on above: Performed By: #### C BC #### [facility] [place] [address] [place] [address] Lymphocytosis # [employer] MACHINE OPERATOR Normal [facility] Comment on above: Performed By: #### C BC #### [facility] [place] [address] [place] [address] Lymphocytosis % [employer]ER [employer] MACHINE OPERATOR Normal [facility] Comment on above: Performed By: #### C BC #### [facility] [address] [place] [address] Macrocytosis [employer]ER [employer] MACHINE OPERATOR Normal [facility] Comment on above: Performed By: #### C BC #### [facility] [address] [place] [address] MCH (RBC) [Entitic mass] 31.1 pg High 27.0-31.0 [facility] Comment on above: Performed By: #### C BC #### [facility] [address] [place] [address] MCHC (RBC) [Mass/Vol] 34.5 g/dL Normal 33.0-37.0 [facility] Comment on above: Performed By: #### C BC #### [facility] [address] [place] [address] MCV (RBC) [Entitic vol] 90.2 fL Normal 81.0-99.0 [facility] Comment on above: Performed By: #### C BC #### [facility] [address] [place] [address] Microcytosis [employer]ER [employer] MACHINE OPERATOR Normal [facility] Comment on above: Performed By: #### C BC #### [facility] [address] [place] [address] Monocytes (Bld) [#/Vol] 0.4 10*3/uL Normal 0.3-0.8 [facility] Comment on above: Performed By: #### C BC #### [facility] [address] [place] [address] Monocytes/100 WBC (Bld) 7.3 % Normal 5.5-11.7 [facility] Comment on above: Performed By: #### C BC #### [facility] [place] [address] [place] [address] Monocytosis % [employer]ER [employer] MACHINE OPERATOR Normal [facility] Comment on above: Performed By: #### C BC #### [facility] [place] [address] [place] [address] Neutropenia # [employer] MACHINE OPERATOR Normal [facility] Comment on above: Performed By: #### C BC #### [facility] [place] [address] [place] [address] Neutropenia % P[employer]ER [employer] MACHINE OPERATOR Normal [facility] Comment on above: Performed By: #### C BC #### [facility] [place] [address] [place] [address] Neutrophils (Bld) [#/Vol] P[employer]ER [employer] MACHINE OPERATOR Normal [facility] Comment on above: Performed By: #### C BC #### [facility] [place] [address] [place] [address] Neutrophils Abs. # 4.2 K/uL Normal 2.2-4.8 [facility] Comment on above: Performed By: #### C BC #### [facility] [place] [address] [place] [address] Neutrophils/100 WBC (Bld) 69.3 % High 43.0-65.0 [facility] Comment on above: Performed By: #### C BC #### [facility] [place] [address] [place] [address] Neutrophils/100 WBC (Bld) [employer]ER [employer] MACHINE OPERATOR Normal [facility] Comment on above: Performed By: #### C BC #### [facility] [place] [address] [place] [address] Nucleated RBC (Bld) [#/Vol] 0.0 10*3/uL Normal [facility] Comment on above: Performed By: #### C BC #### [facility] [place] [address] [facility] [place] [address] Nucleated RBC/100 WBC (Bld) [Ratio] 0.0 % Normal [facility] Comment on above: Performed By: #### C BC #### [facility] [place] [address] [place] [address] Pancytopenia [employer]ER [employer] MACHINE OPERATOR Normal [facility] Comment on above: Performed By: #### C BC #### [facility] [place] [address] [place] [address] Platelet mean volume (Bld) [Entitic vol] 7.6 fL Normal 7.4-10.4 [facility] Comment on above: Performed By: #### C BC #### [facility] [place] [address] [facility] [place] [address] Platelets (Bld) [#/Vol] 217 10*3/uL Normal 148-402 [facility] Comment on above: Performed By: #### C BC #### [facility] [place] [address] [place] [address] Poikilocytosis P[employer]ER [employer] MACHINE OPERATOR Normal [facility] Comment on above: Performed By: #### C BC #### [facility] [place] [address] [place] [address] RBC (Bld) [#/Vol] 3.63 10*6/uL Low 3.83-5.19 [facility] Comment on above: Performed By: #### C BC #### [facility] [place] [address] [place] [address] Small Platelets P[employer]ER [employer] MACHINE OPERATOR Normal [facility] Comment on above: Performed By: #### C BC #### [facility] [place] [address] [place] [address] Thrombocytopenia P[employer]ER [employer] MACHINE OPERATOR Normal [facility] Comment on above: Performed By: #### C BC #### [facility] [address] [place] [address] Thrombocytopenia. P[employer]ER GOODS MACHINE OPERATOR Normal [facility] Comment on above: Performed By: #### C BC #### [facility] [address] [place] [address] Thrombocytosis P[employer]ER [employer] MACHINE OPERATOR Normal [facility] Comment on above: Performed By: #### C BC #### [facility] [address] [place] [address] WBC (Bld) [#/Vol] 6.1 10*3/uL Normal 3.6-10.8 [facility] Comment on above: Performed By: #### C BC #### [facility] [address] [place] [address] CHEST APon 11-18-2019 CHEST AP EXAMINATION: ONE XRAY VIEW OF THE CHEST 11/18/2019 4:31 pm COMPARISON: None. HISTORY: ORDERING SYSTEM PROVIDED HISTORY: palpitations FINDINGS: The lungs are without acute focal process. There is no effusion or pneumothorax. The cardiomediastinal silhouette is without acute process. The osseous structures are without acute process. IMPRESSION: No acute process. Normal [facility] Comprehensive Metabolic Pane roseanne 11-18-2019 Albumin [Mass/Vol] 3.3 g/dL Low 3.4-5.0 [facility] Comment on above: Performed By: #### C MP #### [facility] [address] [place] [address] Albumin/Globulin [Mass ratio] 0.9 {ratio} Low 1.1-2.5 [facility] Comment on above: Performed By: #### C MP #### [facility] [address] [place] [address] ALP [Catalytic activity/Vol] 44 U/L Low 54-112 [facility] Comment on above: Performed By: #### C MP #### [facility] [address] [facility] [place] [address] ALT [Catalytic activity/Vol] 32 U/L Normal 13-66 [facility] Comment on above: Performed By: #### C MP #### [facility] [address] [place] [address] Anion gap [Moles/Vol] 9.9 mmol/L Normal 8.0-16.0 [facility] Comment on above: Performed By: #### C MP #### [facility] [address] [place] [address] AST [Catalytic activity/Vol] 24 U/L Normal 3-39 [facility] Comment on above: Performed By: #### C MP #### [facility] [address] [place] [address] Bilirubin Ql (U) 0.69 mg/dL Normal 0.00-0.99 [facility] Comment on above: Performed By: #### C MP #### [facility] [address] [place] [address] Calcium [Mass/Vol] 8.6 mg/dL Normal 8.2-10.0 [facility] Comment on above: Performed By: #### C MP #### [facility] [address] [place] [address] Chloride [Moles/Vol] 106 mmol/L Normal 94-110 [facility] Comment on above: Performed By: #### C MP #### [facility] [address] [place] [address] CO2 [Moles/Vol] 30 mmol/L Normal 21-34 [facility] Comment on above: Performed By: #### C MP #### [facility] [address] [place] [address] Creatinine [Mass/Vol] 0.62 mg/dL Normal 0.51-0.95 [facility] Comment on above: Performed By: #### C MP #### [facility] [address] [place] [address] GFR/1.73 sq M predicted among blacks MDRD (S/P/Bld) [Vol rate/Area] mL/min/{1.73_m2} Normal >60 [facility] Comment on above: Result Comment: [employer]ingo [employer]ier belem Kidney Disease less than 60 mL/min/1.73 m2 Kidney Failure less than 15 mL/min/1.73 m2 Average estimated GFR by age: 20-29 years 116 mL/min/1.73 m2 Performed By: #### C MP #### [facility] [address] [place] [address] GFR/1.73 sq M predicted among non-blacks MDRD (S/P/Bld) [Vol rate/Area] mL/min/{1.73_m2} Normal >60 [facility] Comment on above: Performed By: #### C MP #### [facility] [address] [place] [address] Globulin (S) [Mass/Vol] 3.5 g/dL Normal 1.5-4.5 [facility] Comment on above: Performed By: #### C MP #### [facility] [address] [place] [address] Glucose [Mass/Vol] 90 mg/dL Normal 65-100 [facility] Comment on above: Performed By: #### C MP #### [facility] [address] [place] [address] Potassium [Moles/Vol] 3.9 mmol/L Normal 3.3-5.1 [facility] Comment on above: Performed By: #### C MP #### [facility] [place] [address] [place] [address] Protein [Mass/Vol] 6.8 g/dL Normal 6.1-8.2 [facility] Comment on above: Performed By: #### C MP #### [facility] [address] [place] [address] Sodium [Moles/Vol] 142 mmol/L Normal 132-145 [facility] Comment on above: Performed By: #### C MP #### [facility] [address] [place] [address] Urea nitrogen [Mass/Vol] 8.9 mg/dL Normal 3.2-26.9 [facility] Comment on above: Performed By: #### C MP #### [facility] [address] [place] [address] Urea nitrogen/Creatinine [Mass ratio] 14 mg/mg Normal 6-20 [facility] Comment on above: Performed By: #### C MP #### [facility] [address] [place] [address] Ethanol (Medical)on 11-18-19 20 Ethanol [Mass/Vol] mg/dL Normal 0.0-0.0 [facility] Comment on above: Performed By: #### A LC #### [facility] [address] [place] [address] HCG Quanton 11-18-2019 HCG Quant <1 Normal [facility] Comment on above: Result Comment: Expe cted values for Quantitative HCG Assay: Years Range Male 19-83 0-2 mIU/mL Non- female 22-87 0-6 mIU/mL Maxium level of 5,000 to 200,000 mIU/mL is reached at 10-12wks. Levels decline slowly to 1,000-50,000 during 3rd trimester.wks. Please note reference range change Effective: 06-04-03 Performed By: #### H CGQ #### [facility] [place] [address] [place] [address] Magnesiumon 11-18-2019 Magnesium [Mass/Vol] 1.7 mg/dL Normal 1.3-2.3 [facility] Comment on above: Performed By: #### C BC #### [facility] [address] [place] [address] Phosphoruson 11-18-2019 Phosphate [Mass/Vol] 3.4 mg/dL Normal 2.5-4.9 [facility] Comment on above: Performed By: #### C BC #### [facility] [address] [place] [address] Salic Level W/ doseon 2019 Salicylate <2.8 Normal 2.8-20.0 [facility] Comment on above: Performed By: #### S ALIC #### [facility] [address] [place] [address] Troponin ion 11-18-2019 Troponin I.cardiac [Mass/Vol] ng/mL Normal 0.000-0.056 [facility] Comment on above: Result Comment: myocardial injury. [...] guidelines and the third universal definition of MN. The 2012 Third [place] Definition of MN defines a positive troponin as an elevation [...] specimen. Performed By: #### L TROP #### [facility] [place] [address] [place] [address] UA w/reflex cultureon 2019 Appearance (U) CLEAR Normal Clear [facility] Comment on above: Performed By: #### C BC #### [facility] [place] [address] [place] [address] Bilirubin Ql (U) Negative Normal Negative [facility] Comment on above: Performed By: #### C BC #### [facility] [place] [address] [place] [address] Blood Negative Normal Negative [facility] Comment on above: Performed By: #### C BC #### [facility] [place] [address] [place] [address] Color (U) P. YELLOW Normal Yellow [facility] Comment on above: Performed By: #### C BC #### [facility] [place] [address] [place] [address] Glucose [Mass/Vol] NORMAL Normal Negative [facility] Comment on above: Performed By: #### C BC #### [facility] [place] [address] [place] [address] Ketones Ql (U) Negative Normal Negative [facility] Comment on above: Performed By: #### C BC #### [facility] [place] [address] [place] [address] Leukocytes Esterase TRACE Abnormal Negative [facility] Comment on above: Performed By: #### C BC #### [facility] [place] [address] [facility] [place] [address] Nitrite Ql (U) Negative Normal Negative [facility] Comment on above: Performed By: #### C BC #### [facility] [address] [place] [address] pH (U) 8 [pH] Normal [facility] Comment on above: Performed By: #### C BC #### [facility] [address] [place] [address] Protein [Mass/Vol] Negative Normal Negative [facility] Comment on above: Performed By: #### C BC #### [facility] [address] [place] [address] Specific gravity (U) [Rel density] 1.010 Low 1.015-1.025 [facility] Comment on above: Performed By: #### C BC #### [facility] [address] [place] [address] Order Comment: Drug Screen Comment No Performed By: #### D RUGR #### [facility] [address] [place] [address] Urobilinogen Qn (U) NORMAL Normal Normal-1.0 [facility] Comment on above: Performed By: #### C BC #### [facility] [address] [place] [address] Urine Drug Screeningon 11-17 Amphetamines Ql (U) Negative Normal [facility] Comment on above: Order Comment: Drug Screen Comment No Result Comment: cuto ff 1000 ng/mL Performed By: #### D RUGR #### [facility] [place] [address] [place] [address] Barbiturates Negative Normal [facility] Comment on above: Order Comment: Drug Screen Comment No Result Comment: cuto ff 200 ng/mL Performed By: #### D RUGR #### [facility] [place] [address] [place] [address] Benzodiazepines Ql (U) Negative Normal [facility] Comment on above: Order Comment: Drug Screen Comment No Result Comment: cuto ff 200 ng/mL Performed By: #### D RUGR #### [facility] [place] [address] [place] [address] Cocaine Ql (U) Negative [place] Comment on above: Order Comment: Drug Screen Comment No Result Comment: cuto ff 300 ng/mL Performed By: #### D RUGR #### [facility] [place] [address] [place] [address] Opiates Ql (U) Negative [place] Comment on above: Order Comment: Drug Screen Comment No Result Comment: cuto ff 300 ng/mL Performed By: #### D RUGR #### [facility] [place] [address] [place] [address] pH (Bld) 8.0 Normal 5.0-8.0 [facility] Comment on above: Order Comment: Drug Screen Comment No Performed By: #### D RUGR #### [facility] [place] [address] [place] [address] Phencyclidine Ql (U) Negative Normal [facility] Comment on above: Order Comment: Drug Screen Comment No Result Comment: cuto ff 25 ng/mL Performed By: #### D RUGR #### [facility] [place] [address] [place] [address] THC Negative [place] Comment on above: Order Comment: Drug Screen Comment No Result Comment: cuto ff 50 ng/mL Performed By: #### D RUGR #### [facility] [address] [place] [address] - - Normal [facility] Comment on above: Order Comment: Drug Screen Comment No Result Comment: . Drug Screen Comment: This assay provides a preliminary unconfirmed analytical test result that may be suitable for the clinical management of patients in certain situations. Some [id number] medications, as well as adulterants, may cause inaccurate results. Screen only testing does not meet the [facility] Forensic Urine Drug Testing Program requirements as a forensic urine drug test for workplace testing. . Performed By: #### D RUGR #### [facility] [address] [place] [address] Urine Microscopicon 11-18-19 20 Bacteria LM.HPF (Urine sed) [#/Area] PAPER GOODS MACHINE OPERATOR Normal 0 - 1+ [facility] Comment on above: Performed By: #### C BC #### [facility] [address] [place] [address] Casts LM.LPF (Urine sed) [#/Area] PAPER GOODS MACHINE OPERATOR Normal [facility] Comment on above: Performed By: #### C BC #### [facility] [address] [place] [address] Crystals LM Nom (Urine sed) PAPER GOODS MACHINE OPERATOR Normal [facility] Comment on above: Performed By: #### C BC #### [facility] [place] [address] [place] [address] Crystals LM Nom (Urine sed) Rare Amorphous Normal [facility] Comment on above: Performed By: #### C BC #### [facility] [address] [place] [address] Epithelial cells LM.HPF (Urine sed) [#/Area] 0-2 Normal 0 - 6 [facility] Comment on above: Performed By: #### C BC #### [facility] [place] [address] [place] [address] Mucus Ql (Urine sed) PAPER GOODS MACHINE OPERATOR Normal [facility] Comment on above: Performed By: #### C BC #### [facility] [place] [address] [place] [address] RBC (U) [#/Vol] None Seen Normal 0 - 2 [facility] Comment on above: Performed By: #### C BC #### [facility] [place] [address] [place] [address] Trichomonas PAPER GOODS MACHINE OPERATOR Normal [facility] Comment on above: Performed By: #### C BC #### [facility] [place] [address] [place] [address] WBC (Bld) [#/Vol] 0-2 Normal 0 - 6 [facility] Comment on above: Performed By: #### C BC #### [facility] [place] [address] [place] [address] Yeast LM Ql (Urine sed) PAPER GOODS MACHINE OPERATOR Normal [facility] Comment on above: Performed By: #### C BC #### [facility] [place] [address] [place] [address] Other PAPER GOODS MACHINE OPERATOR Normal [facility] Comment on above: Performed By: #### C BC #### [facility] [place] [address] [place] [address] CBC w/Auto Differentialon Anemia PAPER GOODS MACHINE OPERATOR [place] Comment on above: Performed By: #### C BC #### [facility] [place] [address] [place] [address] Anisocytosis Ql (Bld) PAPER GOODS MACHINE OPERATOR Normal [facility] Comment on above: Performed By: #### C BC #### [facility] [place] [address] [place] [address] Basophils Abs. # 0.0 K/uL Normal 0.0-0.1 [facility] Comment on above: Performed By: #### C BC #### [facility] [place] [address] [place] [address] Basophils/100 WBC (Bld) 0.5 % Normal 0.2-1.0 [facility] Comment on above: Performed By: #### C BC #### [facility] [place] [address] [place] [address] Basophils/100 WBC (Bld) PAPER GOODS MACHINE OPERATOR Normal [facility] Comment on above: Performed By: #### C BC #### [facility] [place] [address] [place] [address] Bosophillia # PAPER GOODS MACHINE OPERATOR [place] Comment on above: Performed By: #### C BC #### [facility] [place] [address] [place] [address] Eosinophils (Bld) [#/Vol] PAPER GOODS MACHINE OPERATOR Normal [facility] Comment on above: Performed By: #### C BC #### [facility] [place] [address] [place] [address] Eosinophils (Bld) [#/Vol] 0.0 10*3/uL Normal 0.0-0.2 [facility] Comment on above: Performed By: #### C BC #### [facility] [place] [address] [place] [address] Eosinophils/100 WBC (Bld) PAPER GOODS MACHINE OPERATOR Normal [facility] Comment on above: Performed By: #### C BC #### [facility] [place] [address] [place] [address] Eosinophils/100 WBC (Bld) 0.3 % Low 0.9-2.9 [facility] Comment on above: Performed By: #### C BC #### [facility] [place] [address] [place] [address] Erythocytosis PAPER GOODS MACHINE OPERATOR Normal [facility] Comment on above: Performed By: #### C BC #### [facility] [place] [address] [place] [address] Erythrocyte distribution width (RBC) [Ratio] 14.7 % High 11.5-14.5 [facility] Comment on above: Performed By: #### C BC #### [facility] [place] [address] [place] [address] Hematocrit (Bld) [Volume fraction] 37.5 % Normal 33.4-46.0 [facility] Comment on above: Performed By: #### C BC #### [facility] [place] [address] [place] [address] Hemoglobin (Bld) [Mass/Vol] 12.9 g/dL Normal 11.1-13.7 [facility] Comment on above: Performed By: #### C BC #### [facility] [place] [address] [place] [address] Hypochromia PAPER GOODS MACHINE OPERATOR Normal [facility] Comment on above: Performed By: #### C BC #### [facility] [place] [address] [place] [address] Large Platelets PAPER GOODS MACHINE OPERATOR Normal [facility] Comment on above: Performed By: #### C BC #### [facility] [place] [address] [place] [address] Leukocytosis PAPER GOODS MACHINE OPERATOR Normal [facility] Comment on above: Performed By: #### C BC #### [facility] [place] [address] [place] [address] Leukopenia PAPER GOODS MACHINE OPERATOR Normal [facility] Comment on above: Performed By: #### C BC #### [facility] [place] [address] [place] [address] Lymphocytes (Bld) [#/Vol] 1.4 10*3/uL Normal 1.3-2.9 [facility] Comment on above: Performed By: #### C BC #### [facility] [place] [address] [place] [address] Lymphocytes (Bld) [#/Vol] PAPER GOODS MACHINE OPERATOR Normal [facility] Comment on above: Performed By: #### C BC #### [facility] [place] [address] [place] [address] Lymphocytes/100 WBC (Bld) PAPER GOODS MACHINE OPERATOR Normal [facility] Comment on above: Performed By: #### C BC #### [facility] [place] [address] [place] [address] Lymphocytes/100 WBC (Bld) 27.6 % Normal 17.0-45.5 [facility] Comment on above: Performed By: #### C BC #### [facility] [place] [address] [place] [address] Lymphocytosis # PAPER GOODS MACHINE OPERATOR Normal [facility] Comment on above: Performed By: #### C BC #### [facility] [place] [address] [place] [address] Lymphocytosis % PAPER GOODS MACHINE OPERATOR Normal [facility] Comment on above: Performed By: #### C BC #### [facility] [place] [address] [place] [address] Macrocytosis PAPER GOODS MACHINE OPERATOR Normal [facility] Comment on above: Performed By: #### C BC #### [facility] [address] [place] [address] MCH (RBC) [Entitic mass] 30.8 pg Normal 27.0-31.0 [facility] Comment on above: Performed By: #### C BC #### [facility] [address] [place] [address] MCHC (RBC) [Mass/Vol] 34.3 g/dL Normal 33.0-37.0 [facility] Comment on above: Performed By: #### C BC #### [facility] [address] [place] [address] MCV (RBC) [Entitic vol] 89.8 fL Normal 81.0-99.0 [facility] Comment on above: Performed By: #### C BC #### [facility] [address] [place] [address] Microcytosis PAPER GOODS MACHINE OPERATOR Normal [facility] Comment on above: Performed By: #### C BC #### [facility] [address] [place] [address] Monocytes (Bld) [#/Vol] 0.4 10*3/uL Normal 0.3-0.8 [facility] Comment on above: Performed By: #### C BC #### [facility] [address] [place] [address] Monocytes/100 WBC (Bld) 7.4 % Normal 5.5-11.7 [facility] Comment on above: Performed By: #### C BC #### [facility] [address] [place] [address] Monocytosis % PAPER GOODS MACHINE OPERATOR Normal [facility] Comment on above: Performed By: #### C BC #### [facility] [address] [place] [address] Neutropenia # PAPER GOODS MACHINE OPERATOR Normal [facility] Comment on above: Performed By: #### C BC #### [facility] [place] [address] [place] [address] Neutropenia % PAPER GOODS MACHINE OPERATOR Normal [facility] Comment on above: Performed By: #### C BC #### [facility] [place] [address] [place] [address] Neutrophils (Bld) [#/Vol] PAPER GOODS MACHINE OPERATOR Normal [facility] Comment on above: Performed By: #### C BC #### [facility] [place] [address] [place] [address] Neutrophils Abs. # 3.3 K/uL Normal 2.2-4.8 [facility] Comment on above: Performed By: #### C BC #### [facility] [place] [address] [place] [address] Neutrophils/100 WBC (Bld) PAPER GOODS MACHINE OPERATOR Normal [facility] Comment on above: Performed By: #### C BC #### [facility] [place] [address] [place] [address] Neutrophils/100 WBC (Bld) 64.2 % Normal 43.0-65.0 [facility] Comment on above: Performed By: #### C BC #### [facility] [place] [address] [place] [address] Nucleated RBC (Bld) [#/Vol] 0.0 10*3/uL Normal [facility] Comment on above: Performed By: #### C BC #### [facility] [place] [address] [place] [address] Nucleated RBC/100 WBC (Bld) [Ratio] 0.0 % Normal [facility] Comment on above: Performed By: #### C BC #### [facility] [place] [address] [place] [address] Pancytopenia PAPER GOODS MACHINE OPERATOR Normal [facility] Comment on above: Performed By: #### C BC #### [facility] [place] [address] [place] [address] Platelet mean volume (Bld) [Entitic vol] 7.6 fL Normal 7.4-10.4 [facility] Comment on above: Performed By: #### C BC #### [facility] [place] [address] [place] [address] Platelets (Bld) [#/Vol] 230 10*3/uL Normal 148-402 [facility] Comment on above: Performed By: #### C BC #### [facility] [place] [address] [place] [address] Poikilocytosis PAPER GOODS MACHINE OPERATOR Normal [facility] Comment on above: Performed By: #### C BC #### [facility] [place] [address] [place] [address] RBC (Bld) [#/Vol] 4.18 10*6/uL Normal 3.83-5.19 [facility] Comment on above: Performed By: #### C BC #### [facility] [place] [address] [place] [address] Small Platelets PAPER GOODS MACHINE OPERATOR Normal [facility] Comment on above: Performed By: #### C BC #### [facility] [place] [address] [place] [address] Thrombocytopenia PAPER GOODS MACHINE OPERATOR Normal [facility] Comment on above: Performed By: #### C BC #### [facility] [place] [address] [place] [address] Thrombocytopenia. PAPER GOODS MACHINE OPERATOR Normal [facility] Comment on above: Performed By: #### C BC #### [facility] [place] [address] [facility] [place] [address] Thrombocytosis PAPER GOODS MACHINE OPERATOR Normal [facility] Comment on above: Performed By: #### C BC #### [facility] [place] [address] [place] [address] WBC (Bld) [#/Vol] 5.1 10*3/uL Normal 3.6-10.8 [facility] Comment on above: Performed By: #### C BC #### [facility] [place] [address] [place] [address] Comprehensive Metabolic Pane roseanne 11-09-2019 Albumin [Mass/Vol] 4.1 g/dL Normal 3.4-5.0 [facility] Comment on above: Performed By: #### C MP #### [facility] [place] [address] [place] [address] Albumin/Globulin [Mass ratio] 1.1 {ratio} Normal 1.1-2.5 [facility] Comment on above: Performed By: #### C MP #### [facility] [place] [address] [place] [address] ALP [Catalytic activity/Vol] 52 U/L Low 54-112 [facility] Comment on above: Performed By: #### C MP #### [facility] [place] [address] [place] [address] ALT [Catalytic activity/Vol] 17 U/L Normal 13-66 [facility] Comment on above: Performed By: #### C MP #### [facility] [place] [address] [facility] [place] [address] Anion gap [Moles/Vol] 11.8 mmol/L Normal 8.0-16.0 [facility] Comment on above: Performed By: #### C MP #### [facility] [address] [place] [address] AST [Catalytic activity/Vol] 15 U/L Normal 3-39 [facility] Comment on above: Performed By: #### C MP #### [facility] [address] [place] [address] Bilirubin Ql (U) 0.83 mg/dL Normal 0.00-0.99 [facility] Comment on above: Performed By: #### C MP #### [facility] [address] [place] [address] Calcium [Mass/Vol] 8.7 mg/dL Normal 8.2-10.0 [facility] Comment on above: Performed By: #### C MP #### [facility] [address] [place] [address] Chloride [Moles/Vol] 107 mmol/L Normal 94-110 [facility] Comment on above: Performed By: #### C MP #### [facility] [address] [place] [address] CO2 [Moles/Vol] 28 mmol/L Normal 21-34 [facility] Comment on above: Performed By: #### C MP #### [facility] [address] [place] [address] Creatinine [Mass/Vol] 0.80 mg/dL Normal 0.51-0.95 [facility] Comment on above: Performed By: #### C MP #### [facility] [address] [place] [address] GFR/1.73 sq M predicted among blacks MDRD (S/P/Bld) [Vol rate/Area] mL/min/{1.73_m2} Normal >60 [facility] Comment on above: Result Comment: Bingo Cashier belem Kidney Disease less than 60 mL/min/1.73 m2 Kidney Failure less than 15 mL/min/1.73 m2 Average estimated GFR by age: 20-29 years 116 mL/min/1.73 m2 Performed By: #### C MP #### [facility] [address] [place] [address] GFR/1.73 sq M predicted among non-blacks MDRD (S/P/Bld) [Vol rate/Area] mL/min/{1.73_m2} Normal >60 [facility] Comment on above: Performed By: #### C MP #### [facility] [address] [place] [address] Globulin (S) [Mass/Vol] 3.6 g/dL Normal 1.5-4.5 [facility] Comment on above: Performed By: #### C MP #### [facility] [address] [place] [address] Glucose [Mass/Vol] 91 mg/dL Normal 65-100 [facility] Comment on above: Performed By: #### C MP #### [facility] [address] [place] [address] Potassium [Moles/Vol] 3.8 mmol/L Normal 3.3-5.1 [facility] Comment on above: Performed By: #### C MP #### [facility] [address] [place] [address] Protein [Mass/Vol] 7.7 g/dL Normal 6.1-8.2 [facility] Comment on above: Performed By: #### C MP #### [facility] [address] [place] [address] Sodium [Moles/Vol] 143 mmol/L Normal 132-145 [facility] Comment on above: Performed By: #### C MP #### [facility] [address] [place], [place] [id number] Urea nitrogen [Mass/Vol] 11.8 mg/dL Normal 3.2-26.9 [facility] Comment on above: Performed By: #### C MP #### [facility] [address] [place], [place] [address] Urea nitrogen/Creatinine [Mass ratio] 15 mg/mg Normal 6-20 [facility] Comment on above: Performed By: #### C MP #### [facility] [address] [place], [place] [id number] LCHGCon 10-05-2019 [facility] Chlamy trachomatis, KATELYNN = Negative Neiss gonorrhoeae, KATELYNN = Negative Performed at: =[address] [id number] Board Stacker: Luz Marina Sherman MD, Phone: [phone] Source Chlamy/GC Amp = urine Normal [facility] Comment on above: Performed By: #### M IC2 #### [facility] [address] [place], [place] [id number] CBCon 09-14-2019 Erythrocyte distribution width (RBC) [Ratio] 12.8 % 11.5 - 14.5 % [facility] Hematocrit (Bld) [Volume fraction] 41.8 % 33.6 - 46.8 % [facility] Hemoglobin (Bld) [Mass/Vol] 13.7 g/dL 11.7 - 15.8 g/dL [facility] MCH (RBC) [Entitic mass] 29.7 pg 27.5 - 32.3 pg [facility] MCHC (RBC) [Mass/Vol] 32.8 g/dL 30.7 - 35.5 g/dl [facility] MCV (RBC) [Entitic vol] 90.7 fL 80.2 - 99 fL [facility] Platelets (Bld) [#/Vol] 245.0 10*3/uL [facility] RBC (Bld) [#/Vol] 4.61 10*6/uL [facility] WBC LM Ql (Sput) 5.2 [facility] Comprehensive metabolic pane l aka Metaboon 09-14-2019 Albumin [Mass/Vol] 4.5 g/dL 3.5 - 5 g/dL [facility] Alk Phos 40 U/L 24 - 126 U/L [facility] ALT [Catalytic activity/Vol] 15 U/L 9 - 52 U/L [facility] AST [Catalytic activity/Vol] 17 U/L 3 - 47 U/L [facility] Bilirubin [Mass/Vol] 0.6 mg/dL 0.2 - 1 .6 mg/dL [facility] Calcium [Mass/Vol] 10.0 mg/dL 8.4 - 10. 4 mg/dL [facility] Chloride [Moles/Vol] 107 mmol/L 96 - 10 9 mmol/L [facility] CO2 [Moles/Vol] 22 mmol/L 22 - 30 mmol/L [facility] Comprehensive metabolic 2000 panel 0.86 mg/dL 0.52 - 1.04 mg/dL [facility] Glucose [Mass/Vol] 121 mg/dL High 65 - 100 mg/dL [facility] Interpretation and review of laboratory results Abnormal [facility] Potassium [Moles/Vol] 3.8 mmol/L 3.6 - 5.1 mmol/L [facility] Protein [Mass/Vol] 7.8 g/dL 6.3 - 8.2 g/dL [facility] Sodium [Moles/Vol] 142 mmol/L 135 - 147 mmol/L [facility] Urea nitrogen [Mass/Vol] 11 mg/dL 8 - 20 mg/dL [facility] GLOMERULAR FILTRATION RATEon 09-14-2019 GFR/1.73 sq M.predicted MDRD (S/P/Bld) [Vol rate/Area] mL/min/{1.73_m2} [facility] Comment on above: To estimate the GFR [...] 08-19 HAV IgM Qn (S) Nonreactive Nonreactive [facility] HCV Ab Qn (S) Nonreactive Nonreactive [facility] Hep B Core-M AB Nonreactive Nonreactive [facility] Hep B Surf AG Nonreactive Nonreactive [facility] HIV-1 and HIV-2 antibodieson 09-14-2019 HIV 1+2 Ab Ql (S) Nonreactive Nonreactive [facility] Comment on above: Nonreactive No detectable HIV-1p24 Antigen or HIV-1/HIV2 antibodies Syphilis Treponema Antibodyo n 09-14-2019 Syphilis Treponema Antibody Nonreactive Nonreactive [facility] Vital Signs Date Time Vital Sign Value Performing Clinician Facility 10-26-2024 18:48-0400 Body mass index (BMI) [Ratio] 23.15 kg/m2 Catie Flores APRN.CNP Work Phone: [facility] 10-26-2024 18:48-0400 Body temperature 97.59 [degF] Catie Flores APRN.CNP Work Phone: [facility] 10-26-2024 18:48-0400 Body weight 70.6 kg Catie Flores APRN.CNP Work Phone: [facility] 10-26-2024 18:48-0400 Diastolic blood pressure 82 mm[Hg] Catie Flores APRN.CNP Work Phone: [facility] 10-26-2024 18:48-0400 Heart rate 101 /min Catie Sandra GUIDE DOG INSTRUCTOR.SENIOR WEB ANALYST Work Phone: [facility] 10-26-2024 18:48-0400 Respiratory rate 18 /min Catie Sandra GUIDE DOG INSTRUCTOR.SENIOR WEB ANALYST Work Phone: [facility] 10-26-2024 18:48-0400 SaO2% (BldA) [Mass fraction] 99 % Catie Sandra GUIDE DOG INSTRUCTOR.SENIOR WEB ANALYST Work Phone: [facility] 10-26-2024 18:48-0400 Systolic blood pressure 132 mm[Hg] Catie Sandra GUIDE DOG INSTRUCTOR.SENIOR WEB ANALYST Work Phone: [facility] 04-14-2024 17:00-0500 Body mass index (BMI) [Ratio] 27.48 kg/m2 Tucker Claus GUIDE DOG INSTRUCTOR.SENIOR WEB ANALYST Work Phone: [facility] 04-14-2024 17:00-0500 Body temperature 98.1 [degF] Tucker Claus GUIDE DOG INSTRUCTOR.SENIOR WEB ANALYST Work Phone: [facility] 04-14-2024 17:00-0500 Body weight 83.8 kg Tucker Devlin GUIDE DOG INSTRUCTOR.SENIOR WEB ANALYST Work Phone: [facility] 04-14-2024 17:00-0500 Diastolic blood pressure 84 mm[Hg] Tucker Claus GUIDE DOG INSTRUCTOR.SENIOR WEB ANALYST Work Phone: [facility] 04-14-2024 17:00-0500 Heart rate 96 /min Tucker Claus GUIDE DOG INSTRUCTOR.SENIOR WEB ANALYST Work Phone: [facility] 04-14-2024 17:00-0500 Respiratory rate 18 /min Tucker Claus GUIDE DOG INSTRUCTOR.SENIOR WEB ANALYST Work Phone: [facility] 04-14-2024 17:00-0500 SaO2% (BldA) [Mass fraction] 100 % Tucker Claus GUIDE DOG INSTRUCTOR.SENIOR WEB ANALYST Work Phone: [facility] 04-14-2024 17:00-0500 Systolic blood pressure 129 mm[Hg] Tucker Claus GUIDE DOG INSTRUCTOR.SENIOR WEB ANALYST Work Phone: [facility] 10-07-2023 16:31-0400 Body mass index (BMI) [Ratio] 26.79 kg/m2 Tucker Claus GUIDE DOG INSTRUCTOR.SENIOR WEB ANALYST Work Phone: [facility] 10-07-2023 16:31-0400 Body temperature 99 [degF] Tucker Claus GUIDE DOG INSTRUCTOR.SENIOR WEB ANALYST Work Phone: [facility] 10-07-2023 16:31-0400 Body weight 81.7 kg Tuckerazul Devlin GUIDE DOG INSTRUCTOR.SENIOR WEB ANALYST Work Phone: [facility] 10-07-2023 16:31-0400 Diastolic blood pressure 80 mm[Hg] Tucker Claus GUIDE DOG INSTRUCTOR.SENIOR WEB ANALYST Work Phone: [facility] 10-07-2023 16:31-0400 Heart rate 98 /min Tucker Devlin GUIDE DOG INSTRUCTOR.SENIOR WEB ANALYST Work Phone: [facility] 10-07-2023 16:31-0400 Respiratory rate 18 /min Tuckerazul Devlin GUIDE DOG INSTRUCTOR.SENIOR WEB ANALYST Work Phone: [facility] 10-07-2023 16:31-0400 SaO2% (BldA) [Mass fraction] 99 % Tucker Claus GUIDE DOG INSTRUCTOR.SENIOR WEB ANALYST Work Phone: [facility] 10-07-2023 16:31-0400 Systolic blood pressure 122 mm[Hg] Tuckre Claus GUIDE DOG INSTRUCTOR.SENIOR WEB ANALYST Work Phone: [facility] 08-07-2023 17:29-0400 Body temperature 98.2 [degF] Vicki Praisler-Wood GUIDE DOG INSTRUCTOR.SENIOR WEB ANALYST Work Phone: [facility] 08-07-2023 17:29-0400 Body weight 82.8 kg Vicki Praisler-Wood GUIDE DOG INSTRUCTOR.SENIOR WEB ANALYST Work Phone: [facility] 08-07-2023 17:29-0400 Diastolic blood pressure 82 mm[Hg] Vicki Praisler-Wood GUIDE DOG INSTRUCTOR.SENIOR WEB ANALYST Work Phone: [facility] 08-07-2023 17:29-0400 Heart rate 105 /min Vicki Praisler-Wood GUIDE DOG INSTRUCTOR.SENIOR WEB ANALYST Work Phone: [facility] 08-07-2023 17:29-0400 Respiratory rate 20 /min Vicki Praisler-Wood GUIDE DOG INSTRUCTOR.SENIOR WEB ANALYST Work Phone: [facility] 08-07-2023 17:29-0400 SaO2% (BldA) [Mass fraction] 98 % Vicki Praisler-Wood GUIDE DOG INSTRUCTOR.SENIOR WEB ANALYST Work Phone: [facility] 08-07-2023 17:29-0400 Systolic blood pressure 134 mm[Hg] Vicki Praisler-Wood GUIDE DOG INSTRUCTOR.SENIOR WEB ANALYST Work Phone: [facility] 05-05-2023 15:21-0500 Body temperature 99.19 [degF] Krislyn Aberegg PA Work Phone: [facility] 05-05-2023 15:21-0500 Body weight 78.47 kg Krislyn Aberegg PA Work Phone: [facility] 05-05-2023 15:21-0500 Diastolic blood pressure 81 mm[Hg] Krislyn Aberegg PA Work Phone: [facility] 05-05-2023 15:21-0500 Heart rate 107 /min Krislyn Aberegg PA Work Phone: [facility] 05-05-2023 15:21-0500 Respiratory rate 20 /min Krislyn Aberegg PA Work Phone: [facility] 05-05-2023 15:21-0500 SaO2% (BldA) [Mass fraction] 100 % Krislyn Aberegg PA Work Phone: [facility] 05-05-2023 15:21-0500 Systolic blood pressure 134 mm[Hg] Krislyn Aberegg PA Work Phone: [facility] 03-26-2023 17:45-0500 Body temperature 98.8 [degF] Barrie Martinez GUIDE DOG INSTRUCTOR.SENIOR WEB ANALYST Work Phone: [facility] 03-26-2023 17:45-0500 Body weight 77.47 kg [facility] GUIDE DOG INSTRUCTOR.SENIOR WEB ANALYST Work Phone: [facility] 03-26-2023 17:45-0500 Diastolic blood pressure 84 mm[Hg] Barrie Pendlebury GUIDE DOG INSTRUCTOR.SENIOR WEB ANALYST Work Phone: [facility] 03-26-2023 17:45-0500 Heart rate 108 /min Barrie Pendlebury GUIDE DOG INSTRUCTOR.SENIOR WEB ANALYST Work Phone: [facility] 03-26-2023 17:45-0500 Respiratory rate 18 /min [facility] GUIDE DOG INSTRUCTOR.SENIOR WEB ANALYST Work Phone: [facility] 03-26-2023 17:45-0500 SaO2% (BldA) [Mass fraction] 96 % [facility] GUIDE DOG INSTRUCTOR.SENIOR WEB ANALYST Work Phone: [facility] 03-26-2023 17:45-0500 Systolic blood pressure 138 mm[Hg] [facility] GUIDE DOG INSTRUCTOR.SENIOR WEB ANALYST Work Phone: [facility] 01-08-2023 10:26-0400 Body weight 76.57 kg Chrissie De Jesus MD Work Phone: [facility] 01-08-2023 10:26-0400 Diastolic blood pressure 76 mm[Hg] Chrissie De Jesus MD Work Phone: [facility] 01-08-2023 10:26-0400 Systolic blood pressure 120 mm[Hg] Chrissie De Jesus MD Work Phone: [facility] 12-31-2022 13:52-0400 Body weight 78.2 kg Terri Breezewood GUIDE DOG INSTRUCTOR.SENIOR WEB ANALYST Work Phone: [facility] 12-31-2022 13:52-0400 Diastolic blood pressure 76 mm[Hg] Terri Breezewood GUIDE DOG INSTRUCTOR.SENIOR WEB ANALYST Work Phone: [facility] 12-31-2022 13:52-0400 Systolic blood pressure 136 mm[Hg] Terri Kasie GUIDE DOG INSTRUCTOR.SENIOR WEB ANALYST Work Phone: [facility] 05-28-2022 08:35-0500 Body mass index (BMI) [Ratio] 25.2 kg/m2 Dr. Odin Abraham Work Phone: [facility] 05-28-2022 08:35-0500 Body temperature 98 [degF] Dr. Odin Abraham Work Phone: [facility] 05-28-2022 08:35-0500 Body weight 79.[address] Odin Abraham Work Phone: [facility] 05-28-2022 08:35-0500 Diastolic blood pressure 76 mm[Hg] Dr. Odin Abraham Work Phone: [facility] 05-28-2022 08:35-0500 Heart rate 76 /min Dr. Odin Abraham Work Phone: [facility] 05-28-2022 08:35-0500 Respiratory rate 18 /min Dr. Odin Abraham Work Phone: [facility] 05-28-2022 08:35-0500 SaO2% (BldA) [Mass fraction] 96 % Dr. Odin Abraham Work Phone: [facility] 05-28-2022 08:35-0500 Systolic blood pressure 122 mm[Hg] Dr. Odin Abraham Work Phone: [facility] Encounters Encounter Date Encounter Type Care Provider Facility Start: 10-26-2024 End: 10-26-2024 Patient encounter procedure Catie Flores RUBEN.SENIOR WEB ANALYST Work Phone: [facility] Comment on above: Redness of skin (Eden reese Dx) Start: 10-26-2024 End: 10-26-2024 ambulatory ODIN ABRAHAM Facility:[facility] Start: 04-18-2024 End: 04-18-2024 ambulatory [facility] Start: 04-14-2024 End: 04-14-2024 ambulatory ODIN ABRAHAM Facility:[facility] Start: 04-14-2024 End: 04-14-2024 Patient encounter procedure Tucker Devlin APRN.SENIOR WEB ANALYST Work Phone: [facility] Comment on above: Sore throat (Primary Dx) Start: 03-17-2024 End: 03-17-2024 ambulatory Odin Montezuma Facility:[facility] Start: 10-07-2023 End: 10-07-2023 Patient encounter procedure Tucker Devlin APRN.SENIOR WEB ANALYST Work Phone: [facility] Comment on above: Sore throat (Primary Dx) Start: 09-27-2023 End: 09-27-2023 ambulatory Odin Montezuma Facility:[facility] Start: 09-05-2023 End: 09-05-2023 ambulatory Odin Montezuma Facility:[facility] Start: 08-12-2023 End: 08-12-2023 ambulatory [facility] Start: 08-07-2023 End: 08-07-2023 Patient encounter procedure Vicki Michael APRN.SENIOR WEB ANALYST Work Phone: [facility] Comment on above: Sore throat (Primary Dx) Start: 05-05-2023 End: 05-05-2023 Patient encounter procedure Antonette MATUTE Work Phone: [facility] Comment on above: URI, acute (Primary Dx); Bacterial sinusitis Start: 03-27-2023 Telephone encounter Delmis solis PA-C Work Phone: [facility] Comment on above: Results Start: 03-26-2023 End: 03-26-2023 Office outpatient visit 15 minutes Barrie Martinez APRN.SENIOR WEB ANALYST Work Phone: [facility] Comment on above: Viral illness (Prima ry Dx) Start: 01-08-2023 End: 01-08-2023 Patient encounter procedure Chrissie De Jesus MD Work Phone: OB/Gynecology Comment on above: Encounter for IUD in sertion (Primary Dx); Screen for STD (sexually transmitted disease) Start: 12-31-2022 End: 12-31-2022 Patient encounter procedure Terri Ferro APRN.SENIOR WEB ANALYST Work Phone: OB/Gynecology Comment on above: Encounter for survei llance of contraceptive pills (Primary Dx); Encounter for IUD insertion Start: 08-09-2022 End: 08-09-[address] Odin Abraham Work Phone: [facility] Work Phone: Start: 08-09-2022 End: 08-09-[address] Odin Abraham Work Phone: [facility] Start: 05-28-2022 End: 05-28-[address] Odin Abraham Work Phone: [facility] Internal Medicine Start: 01-16-2021 End: 01-16-2021 Patient encounter status Cheyenne Bautista APRN SENIOR WEB ANALYST Work Phone: [facility] Start: 01-16-2021 End: 01-16-2021 Subsequent hospital visit by physician Cheyenne Bautista APRN SENIOR WEB ANALYST Work Phone: [facility] Comment on above: Encounter for gyneco logical examination without abnormal finding; Screen for STD (sexually transmitted disease); High risk heterosexual behavior Start: 01-04-2020 End: 01-04-2020 Subsequent hospital visit by physician Virginia Vidal Work Phone: [facility] Start: 09-14-2019 End: 09-14-2019 Subsequent hospital visit by physician Estuardo Anna Work Phone: [facility] Comment on above: Arrived Procedures Date Procedure Procedure Detail Performing Clinician Start: 04-14-2024 STREP A MOLECULAR (POC) Delmis Sparks PA-C Work Phone: Start: 10-07-2023 STREP A MOLECULAR (POC) Tucker Devlin APRN.SENIOR WEB ANALYST Work Phone: Start: 08-07-2023 STREP A MOLECULAR (POC) [facility] Provider Start: 03-26-2023 COVID & INFLUENZA A/ B & RSV NAAT, ROUTINE Barrie Martinez APRN.SENIOR WEB ANALYST Work Phone: Start: 03-26-2023 Iadna respiratry pro be & rev trnscr 3-5 targets Barrie Martinez GUIDE DOG INSTRUCTOR.SENIOR WEB ANALYST Work Phone: Start: 03-26-2023 Sars-cov-2 detection by dna/rna Barrie Martinez GUIDE DOG INSTRUCTOR.SENIOR WEB ANALYST Work Phone: Start: 01-08-2023 Urine test visual color cmprsn davids Chrissie De Jesus MD Work Phone: Start: 01-16-2021 Adult depression scr eening assessment Cheyennemaritza Bautista GUIDE DOG INSTRUCTOR SENIOR WEB ANALYST Work Phone: Start: 01-04-2020 Adult depression scr [...] Author Start: 09-29-[address] [facility] Start: 09-29-2027 PAP TEST[address] PAP TESTING [facility] Start: 09-29-2027 Screening for malign ant neoplasm of cervix [facility] Start: 01-18-2025 Influenza vaccination Influenz a Vaccine (Season Ended) [facility] Start: 01-03-2025 Screening for malign ant neoplasm of cervix PAP SMEAR [facility] Start: 01-19-2024 Covid-19 Vaccine () Covid-19 Vaccine () [facility] Start: 01-19-2024 Influenza vaccination C [facility] Start: 09-29-2023 Screening for malign ant neoplasm of cervix Cervical Cancer Screening [facility] Start: 05-20-2023 Behavioral Health Screening Behavioral Health Screening [facility] Start: 05-20-2023 [facility] Start: 01-18-2023 Covid-19 Vaccine () Covid-19 Vaccine () [facility] Start: 01-18-2023 Influenza vaccination C [facility] Start: 01-03-2023 Human papilloma viru s screening PAP SMEAR [facility] Start: 05-28-2022 Patient referral [facility] Work Phone: Start: 05-20-2022 DEPRESSION ASSESSMENT DEPRESSION ASS ESSMENT [facility] Start: 01-29-2022 End: 01-29-2022 Patient encounter procedure 01/29/2022 Office Visit Obstetrics and Gynecology Cheyenne Bautista APRN [facility] [place], [place] [id number] [facility] Start: 01-17-2022 ANNUAL WELLNESS VISIT [facility] Start: 01-16-2022 Depression screening using PHQ-9 (Patient Health Questionnaire 9) score DEPRESSION SCREENING [facility] Start: 04-19-2021 End: 04-19-2021 Patient encounter procedure 04/19/2021 Office Visit Family Medicine Roxie Howell PA-C [address] [place] [address] [facility] [address] ADULT Start: 02-08-2021 End: 02-08-2021 Telemedicine consultation with patient 02/08/2021 Telemedicine Behavioral Health Richie Monk PA [address] [place] [address] [facility] Start: 01-30-2021 End: 01-30-2021 Clinical Support 01/30/2021 Clinical Support Obstetrics and Gynecology Cheyenne Bautista APRN SENIOR WEB ANALYST [address] [place] [address] [facility] Start: 01-18-2021 Influenza vaccinatio n given INFLUENZA VACCINE (#1) [facility] Start: 01-09-2021 End: 01-09-2021 Office Visit 01/09/2021 Office Visit Obstetrics and Gynecology Virginia Vidal APRN SENIOR WEB ANALYST [address] [place] [address] [phone] [facility] Start: 01-03-2021 Adult depression screening assessment DEPRESSION SCREENING [facility] Start: 11-25-2020 ANNUAL WELLNESS VISIT ANNUAL WELLNES S VISIT [facility] Start: 01-26-2020 End: 01-26-2020 Office Visit 01/26/2020 Office Visit Family Medicine Roxie Howell PA-C [address] [place] [address] [phone] [facility] [address] ADULT Start: 01-19-2020 Influenza vaccinatio n given INFLUENZA VACCINE (#1) [facility] Start: 01-18-2019 Influenza vaccinatio n given INFLUENZA VACCINE (#1) [facility] Start: 2011 Human papilloma viru s screening PAP SMEAR [facility] Start: 2011 Tetanus, diphtheria and acellular pertussis vaccination TDAP/TD ADULT [facility] Start: 2009 Hepatitis B Vaccine (1 of 3 - 19+ 3-dose series) Hepatitis B Vaccine (1 of 3 - 19+ 3-dose series) [facility] Start: [address] [facility] Start: 02-16-2008 ANNUAL WELLNESS VISIT ANNUAL WELLNES S VISIT [facility] Start: 02-16-2008 Depression Screening Depression Scre ening [facility] Start: 02-16-2008 HEPATITIS C SCREENING HEPATITIS C [facility] Start: 02-16-2008 Hepatitis C screening Hepatitis C [facility] Start: 02-16-2008 HIV SCREENING HIV SCREENING [facility] Start: 02-16-2008 HIV screening HIV Screening [facility] Start: 2002 Adult depression screening assessment DEPRESSION SCREENING [facility] Start: 2001 Diphtheria + pertuss is + tetanus vaccine (product) DTAP/TDAP/TD VACCINE (1 - Tdap) [facility] Start: 1990 COVID-19 VACCINE (#1) COVID-19 VACCI NE (#1) [facility] Start: 1990 HEPATITIS B (1 of 3 - 3-dose series) HEPATITIS B (1 of 3 - 3-dose series) [facility] Start: 1990 Hepatitis B Vaccine (1 of 3 - 3-dose series) Hepatitis B Vaccine (1 of 3 - 3-dose series) [facility] Chlamydia trachomatis+Neisseria gonorrhoeae DNA [Presence] in Unspecified specimen by KATELYNN with probe detection GONORRHEA/CHLAMYDIA NAAT Lab Routine Screen for STD (sexually transmitted disease) 01/08/2023 10:58 AM T [facility] Work Phone: Chlamydia trachomatis+Neisseria gonorrhoeae rRNA [Presence] in Cervix by Probe GC & CHLAMYDIA AMPLIFIED PROBE Microbiology Routine 09/14/2019 10:44 AM EDT [facility] End: 01-17-2021 Chlamydia trachomatis+Neisseria gonorrhoeae rRNA [Presence] in Cervix by Probe [facility] Comment on above: 1 Occurrences starti ng 01/17/2021 until 01/17/2021 COVID & INFLUENZA A/ B & RSV NAAT, ROUTINE COVID & INFLUENZA A/B & RSV NAAT, ROUTINE Microbiology Routine URI, acute 05/05/2023 3:31 PM EST [facility] Work Phone: End: 01-17-2021 Human papilloma virus DNA [Presence] in Unspecified specimen by Probe with amplification [facility] Work Phone: Comment on above: 1 Occurrences starti ng 01/17/2021 until 01/17/2021 Insertion intrauteri ne device iud INSERT INTRAUTERINE DEVICE Procedures Routine Encounter for IUD insertion Ordered: 12/31/[address] [facility] Work Phone: Comment on above: Ordered: 12/31/2022 Insertion intrauteri ne device iud INSERT INTRAUTERINE DEVICE Procedures Routine Encounter for IUD insertion Ordered: 01/08/[address] [facility] Work Phone: Comment on above: Ordered: 01/08/2023 End: 01-17-2021 Microscopic observation [Identifier] in Cervix by Cyto stain [facility] Comment on above: 1 Occurrences starti ng 01/17/2021 until 01/17/2021 Patient referral [facility] Work Phone: Tobacco use cessatio n education [facility] End: 01-17-2021 Trichomonas Amplified Probe [facility] Comment on above: 1 Occurrences starti ng 01/17/2021 until 01/17/2021 TRICHOMONAS VAGINALI S NAAT TRICHOMONAS VAGINALIS NAAT Lab Routine Screen for STD (sexually transmitted disease) 01/08/2023 10:58 AM EDT [facility] Work Phone: [facility] Payers Date Payer Category Payer Self-pay [id number] 2023 Unknown [id number] 2022 Medicaid [id number] 1990 Unknown [id number] 1990 Unknown [id number] Medicaid [facility] xxxxxxxxxxxx Effective for all dates [phone] [address] [place] [address] Medicaid xxxxxxxxxxxx [id number] Medicaid [id number] Unknown [id number] Unknown [id number] Unknown [id number] Social History Date Type Detail Facility Start: 07-04-2017 End: 09-28-2022 Tobacco smoking status NHIS Never smoker [facility] Work Phone: Start: 07-04-2017 Alcohol intake Current drinke r of alcohol (finding) Formerly named [facility] Start: 1990 Sex Assigned At Not on file G [facility] Start: 01-04-2020 End: 11-18-2019 Tobacco smoking status NHIS Current every day smoker [facility] End: 11-18-2019 History of tobacco use [facility]igarette Sm[facility] Start: 01-04-2020 End: 09-28-2022 Tobacco use and exposure Never used [facility] named [facility] Start: 01-04-2020 End: 10-26-2024 Alcohol intake Ex-drinker (finding) [facility] named [facility] Exposure to SARS-CoV -2 (event) Not sure [facility] named [facility] Start: 01-11-2021 History SDOH Social Connections Membership 2 [facility] Start: 01-11-2021 History SDOH Financial 5 [facility]ly named [facility] Start: 01-11-2021 History SDOH Food Worry 1 [facility] named [facility] Start: 06-18-2022 Tobacco smoking stat us SCIS Unknown if ever smoked [facility] Start: 1990 Sex Assigned At Female [facility] Start: 09-28-2022 End: 12-31-20[address] History of [address] [facility] Start: 09-28-2022 End: 12-31-[address] [facility] National Score (1-100), lower number is lower risk 50 [facility] Start: 09-28-[address] [facility] Start: 09-28-2022 Tobacco Comment Pt vapes [facility] Start: 09-28-2022 Alcohol Comment sober 15 mos [facility] Start: 05-05-2023 Gender identity Identifies as female gender (finding) [facility] NEGATED: Highlighted rowStart: BARRETTF History of tobacco use Passive smoker [facility] Work Phone: Clinical Notes 12-31-2022 to 10-26-2024 [...] ER if occurs documented in this encounter [facility] 10-26-2024 Note HNO ID: [id number] Author: CATIE FLORES APRN.CNP Service: ? Author Type: Nurse Practitioner Type: Progress Notes Filed: 10/26/2024 19:31 Note Text: Subjective The history is provided by the patient. No speech language pathology assistant was used. MARY LOU Arreguin is a [...] have confirmed and edited as necessary, the [facility] Review of Systems Constitutional: Negative for chills [...] detail warranting prompt ER evaluation. Catie Flores APRN.[facility] 10-26-2024 History of Presen t illness Narrative Images from the original note were not included. Subjective The history is provided by the patient. No speech language pathology assistant was used. HPI Christa Arreguin is a [...] have confirmed and edited as necessary, the [facility] Review of Systems Constitutional: Negative for chills [...] Catie Flores APRN.LON documented in this encounter [facility] 04-14-2024 Note HNO ID: [id number] Author: TUCKER DEVLIN APRN.SENIOR WEB ANALYST Service: ? Author Type: Nurse Practitioner Type: [...] FLUTICASONE PROPIONATE 50 MCG/ACTUATION NASAL SPRAY,SUSPENSION Tucker eDvlin APRN.[facility] 04-14-2024 History of Presen t illness Narrative [...] PROPIONATE 50 MCG/ACTUATION NASAL SPRAY,SUSPENSION Tucker Devlin APRN.SENIOR WEB ANALYST documented in this encounter [facility] 10-07-2023 History of Presen t illness Narrative [...] Tucker Devlin APRN.CNP documented in this encounter [facility] 08-07-2023 Instructions Vicki Michael APRN.CNP - 08/07/2023 [...] mouth and then touches another person directly (xewm-so-xmph contact) or indirectly (xzye-uo-xynnnc, such as doorknob, telephone, toys). It is [...] every four months on our web site ([email or web address]). Information below was obtained from Up to date Last literature review version 19.2: September 2010 This topic last updated: January 04, 2010 documented in this encounter [facility] 08-07-2023 History of Presen t illness Narrative [...] Discussed expected course of illness Vicki Michael APRN.SENIOR WEB ANALYST documented in this encounter [facility] 05-05-2023 History of Presen t illness Narrative This note was created using kalideater. Subjective Christa Arreguin is a 33 year [...] evaluation. JUJU Jaeger documented in this encounter [facility] 03-27-2023 Miscellaneous Notes Patient notified.Laura Floyd LPN Please let patient know that their COVID-19, influenza, and RSV testing is negative. documented in this encounter [facility] 03-26-2023 Instructions Barrie Martinez APRN.SENIOR WEB ANALYST - 03/26/2023 6:00 PM EST How to [...] concerning to you. documented in this encounter [facility] 03-26-2023 History of Presen t illness Narrative [...] of care. This note was generated using Vertigo software. It may contain errors in wording, punctuation, or spelling. Barrie Martinez APRN.LON documented in this encounter [facility] 01-08-2023 History of Presen t illness Narrative N/a Public Welfare Director offered: Patient declines. Christa presents today for IUD insertion for contraception. Patient's last menstrual period was 12/23/2022. GC/chlamydia: Collected today test: negative Side effects including irregular bleeding were discussed with the patient. The patient understands that it should be removed in 8 years or sooner if the patient desires a . IUD source: office provided IUD lot #: [id number] Exp date: 03/2025 UNIVERSAL PROTOCOL / SAFETY [...] De Jesus MD documented in this encounter [facility] 01-08-2023 Instructions Jackie Mahmood MA - 01/08/2023 [...] contact the office. documented in this encounter 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 noneactive Establishing care with new doctor, encounter for noneactive Screening for cervical cancer noneactive Anxiety and depression nonea ctive Excessive sweating noneactiv e Deviated septum noneactive [facility] Work Phone: Evaluation note* Diagnosis Encounter for surveillance of contraceptive pills- Primary Surveillance of previously prescribed contraceptive pill Encounter for IUD insertion Encounter for insertion of intrauterine contraceptive device documented in this encounter [facility] note* Diagnosis Encounter for IUD insertion- Primary Encounter for insertion of intrauterine contraceptive device Screen for STD (sexually transmitted disease) Screening examination for venereal disease documented in this encounter [facility] note* Diagnosis Viral illness- Primary Unspecified viral infection, in conditions classified elsewhere and of unspecified site documented in this encounter [facility] note* Diagnosis URI, acute- Primary Acute upper respiratory infections of unspecified site Bacterial sinusitis Unspecified sinusitis (chronic) documented in this encounter [facility] note* Diagnosis Sore throat- Primary Acute pharyngitis documented in this encounter [facility] note* Diagnosis Sore throat- Primary Acute pharyngitis documented in this encounter [facility] note* Diagnosis Sore throat- Primary Acute pharyngitis documented in this encounter [facility] note* Diagnosis Redness of skin- Primary Unspecified erythematous condition documented in this encounter [facility] for referral (narrative)* Outpatient Procedure (Routine) - Pending Review Specialty Diagnoses / Procedures Referred By Alex torrez Referred To Contact [facility] Diagnoses Encounter for IUD insertion Procedures INSERT INTRAUTERINE DEVICE LEVONORGESTREL IU 52MG 5 YR INSERT INTRAUTERINE DEVICE Terri Ferro APRN.CNP [address] [place] [address] [facility] [address] [place] [address] Referral ID Status Reason Start Date Expiration Date Visits Requested Visits Authorized [id number] Pending Review Auto-Generat ed Referral 12/31/2022 12/31/2023 [address] [facility] Outpatient Procedure (Routine) - Pending Review Specialty Diagnoses / Procedures Referred By Alex torrez Referred To Contact [facility] Diagnoses Encounter for IUD insertion Procedures INSERT INTRAUTERINE DEVICE LEVONORGESTREL IU 52MG 5 YR INSERT INTRAUTERINE DEVICE Chrissie De Jesus MD [address] [place] [address] [facility] [address] [place] [address] Referral ID Status Reason Start Date Expiration Date Visits Requested Visits Authorized [id number] Pending Review Auto-Generat ed Referral 01/08/2023 01/08/[address] 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 Establishing care [...] section and content) DATE CREATED AUTHOR 12/10/2019 [employer] ([place]) DATE CREATED AUTHOR AUTHOR'S ORGANIZ ATION 03/10/2020 [facility] DATE CREATED AUTHOR AUTHOR'S ORGANIZ ATION 03/19/2024 [facility] DATE CREATED AUTHOR AUTHOR'S ORGANIZ ATION 04/19/2024 [employer] DATE CREATED AUTHOR AUTHOR'S ORGANIZ ATION 10/27/2024 [facility] Care Teams (unrecognized sec tion and content) Hand Profiler Relationship Specialty Start Date End Date Kanski, Roxie, PA-C [address] [place] [address] PCP - General Family Medicine 11/25/19 Team Status: Active Member Role Status Dates Dr. Odin Abraham MD Primary Care Provider Active Team Status: Inactive Member Role Status Dates Dr. Odin Abraham MD Primary Care Pro vider, Attending Provider, Referring Provider Active Hand Profiler Relationship Specialty Start Date End Date Odin Abraham MD [address] [place], [place] [id number] PCP - General Internal Medicine 04/14/24 Hand Profiler Relationship Specialty Start Date End Date Odin Abraham MD [address] [place] [address] PCP - General Internal Medicine 04/14/24 [...] or prosecute any alcohol or drug abuse patient.[facility] the event this information is protected by the Federal Confidentiality of Alcohol and Drug Abuse Patient Records regulations: The Federal rules restrict any use of the information to criminally investigate or prosecute any alcohol or drug abuse patient.[facility] the event this information is protected by the Federal Confidentiality of Alcohol and Drug Abuse Patient Records regulations: The Federal rules restrict any use of the information to criminally investigate or prosecute any alcohol or drug abuse patient.[facility] the event this information is protected by the Federal Confidentiality of Alcohol and Drug Abuse Patient Records regulations: The Federal rules restrict any use of the information to criminally investigate or prosecute any alcohol or drug abuse patient.[facility] the event this information is protected by the Federal Confidentiality of Alcohol and Drug Abuse Patient Records regulations: The Federal rules restrict any use of the information to criminally investigate or prosecute any alcohol or drug abuse patient.[facility] the event this information is protected by the Federal Confidentiality of Alcohol and Drug Abuse Patient Records regulations: The Federal rules restrict any use of the information to criminally investigate or prosecute any alcohol or drug abuse patient.[facility] the event this information is protected by the Federal Confidentiality of Alcohol and Drug Abuse Patient Records regulations: The Federal rules restrict any use of the information to criminally investigate or prosecute any alcohol or drug abuse patient.[facility] the event this information is protected by the Federal Confidentiality of Alcohol and Drug Abuse Patient Records regulations: The Federal rules restrict any use of the information to criminally investigate or prosecute any alcohol or drug abuse patient.[facility] the event this information is protected by the Federal Confidentiality of Alcohol and Drug Abuse Patient Records regulations: The Federal rules restrict any use of the information to criminally investigate or prosecute any alcohol or drug abuse patient.[facility] Reason for Visit (unrecogniz ed section and [...] INTRAUTERINE DEVICE REMOVE INTRAUTERINE DEVICE Terri Ferro APRN.SENIOR WEB ANALYST [address] [place] [address] [facility] [address] [place] [address] Referral ID Status Reason Start Date Expiration Date Visits Requested Visits Authorized [id number] Authorized Auto-Generat ed Referral 01/01/2023 05/19/2023 2 [...] BE BASED ON THE PRIMARY CLINICAL RECORDS. [facility] [employer] [facility]. provides no warranty or guarantee of the accuracy or completeness of information in this document.
--- OUTSIDE RECORDS SUMMARY | 2024-12-07 23:36 | XMS RPT_ITS | CCD ---
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 Odin Abraham Primary Care Provider Dr. Odin Abraahm Attending Provider [phone] Dr. Odin Abraham Referring Provider Unavailable Primary Care Provider Unavailabl e Unavailable Primary Care Provider Unavailabl e Leigh Odin Primary Care Unavailable Odin Abraham Attending Unavailable Odin Abraham Referring Unavailable Odin Abraham Attending Unavailable Odin Abraham Referring Unavailable Leigh Odin Primary Care Unavailable Leigh Odin Primary Care Unavailable Leigh Odin Attending Unavailable Odin Abraham MD Primary Care Provider [phone] ROXIE HOWELL Primary Care Unavailable NICOLE TRIN[place]AD Attending Unavailable ROXIE HOWELL Primary Care Unavailable NIR NAVARRO Attending Unavailable ODIN ABRAHAM Primary Care Unavailable CATIE FLORES Attending Unavailable Medications Current Medications Medication Drug Class(es) Dates Sig (Normalized) Sig (Original) [id number] 200 actuat albuterol 0.09 mg/actuat metered dose [...] daily. 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] Onset: 09-28-2022 09-28-2022 Episodic Other skin disorders (3 sources) Excessive sweating; Translations: [Generalized hyperhidrosis] Onset: 07-04-2017 07-04-2017 Episodic Results Test Name Value Interpretation Reference Range Facility [facility] 10-26-2024 OV Office Visit (UCWSTR ) CHRISTA ARREGUIN ([id number]) 1990 F Date Time Provider Department 10/26/24 6:45 PM CATIE FLORES [facility] During your visit today, we recorded the following information about you: Temperature Pulse Respiration Blood pressure 97.6 degrees 101/minute 18/minute 132/82 Weight 70.6 kg Catie Flores APRN.PROMOTION WRITER 10/26/2024 7:31 PM Signed Subjective The history is provided by the patient. No academic advisement director was used. HPI Christa Arreguin is a [...] have confirmed and edited as necessary, the [facility] Review of Systems Constitutional: Negative for [...] warranting prompt ER evaluation. 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 Normal [facility] CNOVon 04-14-2024 CNOV Office Visit (UCWSTR ) KALLIENEVAEHCHRISTA ([id number]) 1990 F Date Time Provider Department 04/14/24 5:00 PM TUCKER DEVLIN [facility] During your visit today, we recorded the following information about you: Temperature Pulse Respiration Blood pressure 98.1 degrees 96/minute 18/minute 129/84 Weight 83.8 kg Tucker Devlin APRN.PROMOTION WRITER 04/14/2024 5:21 PM Signed Subjective HPI HPI [...] PROPIONATE 50 MCG/ACTUATION NASAL SPRAY,SUSPENSION Tucker Devlin APRN.PROMOTION WRITER Allergies As of Date: 04/14/2024 (No Known Allergies) Date Reviewed: 04/14/2024 Reviewed by: Aylin Escalante MA - Fully Assessed Reason for Visit: Sore Throat [200] Cmt: Fatigue, bilateral ear pressure and muffled hearing x4 days, strep exposure Primary Visit Diagnosis:Sore throat [J02.9] Order(s):STREP A MOLECULAR (POC) [5233354] Order #: [id number]. #:[id number] predniSONE (DELTASONE) 20 mg tabletTake 2 tablets by mouth once da (more content not included)... Normal [facility] STREP A MOLECULAR (POC)on Procedural Control Valid [facility] Strep A (POCT) Negative Negative [facility] Internal Medicine Office Vis iton 03-16-2024 Internal Medicine Office Visit [facility] [address] [place] [address] [place] [address] OFFICE VISIT Date of Service: 03/17/24 MR#: [id number] Acct: [id number] Name: CHRISTA ARREGUIN Rep #: [id number] : 1990 Provider: Dr. Odin salinas MD Age/Sex: 34/F Location: [facility] Status: Signed Intake Vital Signs 09/05/23 15:05 [...] M FU Chief Complaint: 6 M FU Database Security Administrator Required: No Is patient in pain?: No [...] to wean off remeron. Declines flu vaccine. 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 Normal [facility] STREP A MOLECULAR (POC)on Procedural Control Valid [facility] Strep A (POCT) Negative Negative [facility] CBC W/Diff, Automatedon 09-17 Absolute Lymph 2.06 X10 3/uL Normal 0.83-4.51 [facility] Comment on above: Performed By: #### L 501.9985, L500.4050, L500.4100, L100.0100, L501.9520 #### [facility] [address] [place], [address] Absolute Neut 3.6 X10 3/uL Normal 2.0-7.7 [facility] Comment on above: Performed By: #### L 501.9985, L500.4050, L500.4100, L100.0100, L501.9520 #### [facility] [address] [place], [address] Basophils/100 WBC (Bld) 0.5 % Normal 0-1 [facility] Comment on above: Performed By: #### L 501.9985, L500.4050, L500.4100, L100.0100, L501.9520 #### [facility] [address] [place], [address] Eosinophils/100 WBC (Bld) 2.1 % Normal 0-5 [facility] Comment on above: Performed By: #### L 501.9985, L500.4050, L500.4100, L100.0100, L501.9520 #### [facility] [address] [place], [address] Erythrocyte distribution width (RBC) [Ratio] 12.4 % Normal 11.6-14.6 [facility] Comment on above: Performed By: #### L 501.9985, L500.4050, L500.4100, L100.0100, L501.9520 #### [facility] [address] [place], [address] Hematocrit (Bld) [Volume fraction] 42.2 % Normal 37-47 [facility] Comment on above: Performed By: #### L 501.9985, L500.4050, L500.4100, L100.0100, L501.9520 #### [facility] [address] [place], [address] Hemoglobin (Bld) [Mass/Vol] 13.9 g/dL Normal 12.0-15.0 [facility] Comment on above: Performed By: #### L 501.9985, L500.4050, L500.4100, L100.0100, L501.9520 #### [facility] [address] [place], [address] IG% 0.200 Normal 0.0-0.9 [facility] Comment on above: Result Comment: IG% - Immature Granulocytes (promyelocytes, myelocytes and metamyelocytes) > 1% indicates that a LEFT SHIFT is Present. Performed By: #### L 501.9985, L500.4050, L500.4100, L100.0100, L501.9520 #### [facility] [address] [place], [address] Lymphocytes/100 WBC (Bld) 33.0 % Normal 19-41 [facility] Comment on above: Performed By: #### L 501.9985, L500.4050, L500.4100, L100.0100, L501.9520 #### [facility] [address] [place], [address] MCH (RBC) [Entitic mass] 30.5 pg Normal 27.0-32.0 [facility] Comment on above: Performed By: #### L 501.9985, L500.4050, L500.4100, L100.0100, L501.9520 #### [facility] [address] [place], [address] MCHC (RBC) [Mass/Vol] 32.9 g/dL Normal 32-36 [facility] Comment on above: Performed By: #### L 501.9985, L500.4050, L500.4100, L100.0100, L501.9520 #### [facility] [address] [place], [address] MCV (RBC) [Entitic vol] 92.5 fL Normal 81-99 [facility] Comment on above: Performed By: #### L 501.9985, L500.4050, L500.4100, L100.0100, L501.9520 #### [facility] [address] [place], [address] Monocytes/100 WBC (Bld) 7.4 % Normal 0-10 [facility] Comment on above: Performed By: #### L 501.9985, L500.4050, L500.4100, L100.0100, L501.9520 #### [facility] [address] [place], [address] Neutrophils/100 WBC (Bld) 56.8 % Normal 47-70 [facility] Comment on above: Performed By: #### L 501.9985, L500.4050, L500.4100, L100.0100, L501.9520 #### [facility] [address] [place], [address] Nucleated RBC (Bld) [#/Vol] 0 10*3/uL Normal 0-5 [facility] Comment on above: Performed By: #### L 501.9985, L500.4050, L500.4100, L100.0100, L501.9520 #### [facility] [address] [place], [address] Platelet mean volume (Bld) [Entitic vol] 9.9 fL Normal 6.2-12.0 [facility] Comment on above: Performed By: #### L 501.9985, L500.4050, L500.4100, L100.0100, L501.9520 #### [facility] [address] [place], [address] Platelets (Bld) [#/Vol] 262 10*3/uL Normal 150-450 [facility] Comment on above: Performed By: #### L 501.9985, L500.4050, L500.4100, L100.0100, L501.9520 #### [facility] [address] [place], [address] RBC (Bld) [#/Vol] 4.56 10*6/uL Normal 4.2-5.4 [facility] Comment on above: Performed By: #### L 501.9985, L500.4050, L500.4100, L100.0100, L501.9520 #### [facility] [address] [place], [address] RDW SD 42.5 fl Normal 35.1-43.9 [facility] Comment on above: Performed By: #### L 501.9985, L500.4050, L500.4100, L100.0100, L501.9520 #### [facility] [address] [place], [address] WBC (Bld) [#/Vol] 6.3 10*3/uL Normal 4.4-11.0 [facility] Comment on above: Performed By: #### L 501.9985, L500.4050, L500.4100, L100.0100, L501.9520 #### [facility] [address] [place], [address] Comprehensive Metabolic Prof [facility] 09-27-2023 Albumin [Mass/Vol] 4.0 g/dL Normal 3.2-5.0 [facility] Comment on above: Performed By: #### L 501.9985, L500.4050, L500.4100, L100.0100, L501.9520 #### [facility] [address] [place], [address] Albumin/Globulin [Mass ratio] 1.1 {ratio} Normal 0.9-2.4 [facility] Comment on above: Performed By: #### L 501.9985, L500.4050, L500.4100, L100.0100, L501.9520 #### [facility] [address] [place], [address] ALK P 43 U/L Low 45-117 [facility] Comment on above: Performed By: #### L 501.9985, L500.4050, L500.4100, L100.0100, L501.9520 #### [facility] [address] [place], [address] ALT [Catalytic activity/Vol] 25 U/L Normal 13-56 [facility] Comment on above: Performed By: #### L 501.9985, L500.4050, L500.4100, L100.0100, L501.9520 #### [facility] [address] [place], [address] AST [Catalytic activity/Vol] 22 U/L Normal 15-37 [facility] Comment on above: Performed By: #### L 501.9985, L500.4050, L500.4100, L100.0100, L501.9520 #### [facility] [address] [place], [address] Bilirubin [Mass/Vol] 0.70 mg/dL Normal 0.20-1.00 [facility] Comment on above: Result Comment: For patients on eltrombopag therapy, use of Dimension [place] TBIL is not recommended. Performed By: #### L 501.9985, L500.4050, L500.4100, L100.0100, L501.9520 #### [facility] [address] [place], [address] BUN/CRE 11.8 RATIO Normal 10-20 [facility] Comment on above: Performed By: #### L 501.9985, L500.4050, L500.4100, L100.0100, L501.9520 #### [facility] [address] [place], [address] CA,Total 9.1 mg/dL Normal 8.5-10.1 [facility] Comment on above: Performed By: #### L 501.9985, L500.4050, L500.4100, L100.0100, L501.9520 #### [facility] [address] [place], [address] Chloride [Moles/Vol] 107 mmol/L Normal 98-107 [facility] Comment on above: Performed By: #### L 501.9985, L500.4050, L500.4100, L100.0100, L501.9520 #### [facility] [address] [place], [address] CO2 [Moles/Vol] 27.0 mmol/L Normal 21.0-32.0 [facility] Comment on above: Performed By: #### L 501.9985, L500.4050, L500.4100, L100.0100, L501.9520 #### [facility] [address] [place], [address] Creatinine [Mass/Vol] 0.85 mg/dL Normal 0.55-1.02 [facility] Comment on above: Result Comment: The validity of the calculated GFR GFRAA in patients over 70 years has not been determined. Clinical correlation is essential. Performed By: #### L 501.9985, L500.4050, L500.4100, L100.0100, L501.9520 #### [facility] [address] [place], [address] EST GFR - AA 99 mL/min Normal >60 [facility] Comment on above: Result Comment: Afri can [place] GFR Calc Performed By: #### L 501.9985, L500.4050, L500.4100, L100.0100, L501.9520 #### [facility] [address] [place], [address] GAP 5 Normal 5-15 [facility] Comment on above: Performed By: #### L 501.9985, L500.4050, L500.4100, L100.0100, L501.9520 #### [facility] [address] [place], [address] GFR/1.73 sq M.predicted among non-blacks MDRD (S/P/Bld) [Vol rate/Area] 82 mL/min/{1.73_m2} Normal >60 [facility] Comment on above: Result Comment: Non- GFR Calc Performed By: #### L 501.9985, L500.4050, L500.4100, L100.0100, L501.9520 #### [facility] [address] [place], [address] Globulin (S) [Mass/Vol] 3.5 g/dL Normal 2.2-4.2 [facility] Comment on above: Performed By: #### L 501.9985, L500.4050, L500.4100, L100.0100, L501.9520 #### [facility] [address] [place], [address] Glucose [Mass/Vol] 91 mg/dL Normal 74-106 [facility] Comment on above: Performed By: #### L 501.9985, L500.4050, L500.4100, L100.0100, L501.9520 #### [facility] [address] [place], [address] Potassium [Moles/Vol] 4.1 mmol/L Normal 3.5-5.1 [facility] Comment on above: Performed By: #### L 501.9985, L500.4050, L500.4100, L100.0100, L501.9520 #### [facility] [address] [place], [address] Sodium [Moles/Vol] 139 mmol/L Normal 136-145 [facility] Comment on above: Performed By: #### L 501.9985, L500.4050, L500.4100, L100.0100, L501.9520 #### [facility] [address] [place], [address] T PROT 7.5 g/dL Normal 6.4-8.2 [facility] Comment on above: Performed By: #### L 501.9985, L500.4050, L500.4100, L100.0100, L501.9520 #### [facility] [address] [place], [address] Urea nitrogen [Mass/Vol] 10 mg/dL Normal 7-18 [facility] Comment on above: Performed By: #### L 501.9985, L500.4050, L500.4100, L100.0100, L501.9520 #### [facility] [address] [place], [address] Hemoglobin A1con 09-27-2023 HbA1c (Bld) [Mass fraction] 4.4 % Normal 3.8-5.6 [facility] Comment on above: Result Comment: Norm al < 5.7 % Prediabetic 5.7 - 6.4 % Diabetic >or= 6.5 % Please note range changes. Performed By: #### L 501.9985, L500.4050, L500.4100, L100.0100, L501.9520 #### [facility] [address] [place], [address] Lipid Profileon 09-27-2023 Cholesterol [Mass/Vol] 132 mg/dL Normal 200 [facility] Comment on above: Result Comment: <200 mg/dL Desirable 200-240 mg/dL Borderline >240 mg/dL High Risk Performed By: #### L 501.9985, L500.4050, L500.4100, L100.0100, L501.9520 #### [facility] [address] [place], [address] Cholesterol in HDL [Mass/Vol] 50 mg/dL Normal [facility] Comment on above: Result Comment: The drugs N-Acetylcysteine and Metamizole may falsely depress this assay. Reference Range HDL <40 mg/dL Low HDL Cholesterol HDL >or= 60 mg/dL High HDL Cholesterol Performed By: #### L 501.9985, L500.4050, L500.4100, L100.0100, L501.9520 #### [facility] [address] [place], [address] Cholesterol in LDL [Mass/Vol] 57 mg/dL Normal 0-130 [facility] Comment on above: Performed By: #### L 501.9985, L500.4050, L500.4100, L100.0100, L501.9520 #### [facility] [address] [place], [address] Cholesterol in VLDL [Mass/Vol] 25 mg/dL Normal 5-40 [facility] Comment on above: Performed By: #### L 501.9985, L500.4050, L500.4100, L100.0100, L501.9520 #### [facility] [address] [place], [address] Triglyceride [Mass/Vol] 125 mg/dL Normal [facility] Comment on above: Result Comment: The drugs N-Acetylcysteine and Metamizole may falsely depress this assay. Serum Triglycerides Reference Interval Normal <150 mg/dL Borderline high 150 - 199 mg/dL High 200 - 499 mg/dL Very High > or = 500 mg/dL Performed By: #### L 501.9985, L500.4050, L500.4100, L100.0100, L501.9520 #### [facility] [address] [place], [address] Thyroid Stim Hormone (TSH)on 09-27-2023 TSH 1.83 uIU/mL Normal 0.358-3.74 [facility] Comment on above: Performed By: #### L 501.9985, L500.4050, L500.4100, L100.0100, L501.9520 #### [facility] [address] [place], [place], [address] Internal Medicine Office Vis iton 09-04-2023 Internal Medicine Office Visit [facility] [address] [place], [place] [address] OFFICE VISIT Date of Service: 09/05/23 MR#: [id number] Acct: [id number] Name: CHRISTA ARREGUIN Rep #: [id number] : 1990 Provider: Dr. Odin salinas MD Age/Sex: 33/F Location: [facility] Status: Signed Intake Vital Signs 02/26/23 13:27 [...] M FU Chief Complaint: 6 M FU Database Security Administrator Required: No Is patient in pain?: No [...] Surgical History History of removal of cyst [place] teeth extracted Family History Father Myocardial infarction 70s Hypertension Social History (Updated 09/05/23 @ 15:[address] Odin Abraham MD) household members: other details: sober living current occupational status: employed current occupation: [employer] Smoking Status: Current every day smoker tobacco [...] work. She does have a membership with [employer] and plans on getting started there. The [...] wheezing Cardio (more content not included)... Normal [facility] STREP A MOLECULAR (POC)on Procedural Control Valid [facility] Strep A (POCT) Negative Negative [facility] COVID NAAT, UPPER RESPIRATOR Y, ROUTINEon 03-27-2023 SARS-CoV-2 (COVID-19) RNA KATELYNN+probe Ql (Resp) Not detected See comment [facility] ROUTINE FLU A/B + RSVon FLUAV RNA KATELYNN+probe Ql (Unsp spec) Not detected Not Detected [facility] FLUBV RNA KATELYNN+probe Ql (Unsp spec) Not detected Not Detected [facility] RSV A RNA KATELYNN+probe Ql (Unsp spec) Not detected Not Detected [facility] HCG QUAL UR B/Oon 01-08-2023 status Negative neg - pos [facility] Quality Check Yes [facility] Absolute lymphocyte countOrd ered By: Dr. Abraham on 08-09-2022 Lymphocytes Auto (Unsp spec) [#/Vol] 1.27 10*3/uL 0.83-4.51 [facility] Basophil percentageOrdered B y: Dr. Abraham on 08-09-2022 Basophils/100 WBC (Bld) 0.5 % 0-1 [facility] Bilirubin [Mass/Vol] 0.70 mg/dL 0.20-1.00 [facility] Comment on above: For patients on eltr ombopag therapy, use of Dimension [place] TBIL is not recommended. Chloride [Moles/Vol] 107 mmol/L 98-107 [facility] Cholesterol [Mass/Vol] 164 mg/dL <200 [facility] Comment on above: <200 mg/dL Desirable 200-240 mg/dL Borderline >240 mg/dL High Risk Eosinophils/100 WBC (Bld) 0.8 % 0-5 [facility] Glucose [Mass/Vol] 95 mg/dL 74-106 [facility] Neutrophils (Bld) [#/Vol] 5.0 10*3/uL 2.0-7.7 [facility] Neutrophils/100 WBC (Bld) 74.7 % 47-70 [facility] Potassium [Moles/Vol] 3.6 mmol/L 3.5-5.1 [facility] Protein [Mass/Vol] 8.0 g/dL 6.4-8.2 [facility] Sodium [Moles/Vol] 141 mmol/L 136-145 [facility] Triglyceride [Mass/Vol] 136 mg/dL <199 [facility] Comment on above: The drugs N-Acetylcy steine and Metamizole may falsely depress this assay.Serum Triglycerides Reference Interval Normal <150 mg/dL Borderline high 150 - 199 mg/dL High 200 - 499 mg/dL Very High > or = 500 mg/dL WBC (Bld) [#/Vol] 6.7 10*3/uL 4.4-11.0 [facility] Blood erythrocytes count (nu mber/volume)Ordered By: Dr. Abraham on 08-09-2022 RBC (Bld) [#/Vol] 4.46 10*6/uL 4.2-5.4 [facility] Blood hemoglobin measurement (mass/volume)Ordered By: Dr. Abraham on 08-09-2022 Hemoglobin (Bld) [Mass/Vol] 13.7 g/dL 12.0-15.0 [facility] Blood lymphocytes/100 leukoc ytesOrdered By: Dr. Abraham on 08-09-2022 Lymphocytes/100 WBC (Bld) 19.1 % 19-41 [facility] Blood monocytes/100 leukocyt esOrdered By: Dr. Abraham on 08-09-2022 Monocytes/100 WBC (Bld) 4.7 % 0-10 [facility] Blood platelet mean volumeOr dered By: Dr. Abraham on 08-09-2022 Platelet mean volume (Bld) [Entitic vol] 9.4 fL 6.2-12.0 [facility] Determination of erythrocyte mean corpuscular volume (MCV)Ordered By: Dr. Abraham on 08-09-2022 MCV (RBC) [Entitic vol] 91.7 fL 81-99 [facility] HIV 1 and HIV-2 antibody ass ay with HIV-1 p24 antigen detectionOrdered By: Dr. Abraham on 08-09-2022 HIV 1+2 Ab+HIV1 p24 Ag IA Ql Non-Reactive Nonreactive [facility] Hematocrit Auto (Bld) [Volum e fraction]Ordered By: Dr. Abraham on 08-09-2022 Hematocrit (Bld) [Volume fraction] 40.9 % 37-47 [facility] - Chemistry and C hemistry - challengeOrdered By: Dr. Abraham on 08-09-2022 ALP [Catalytic activity/Vol] 45 U/L 45-117 [facility] ALT [Catalytic activity/Vol] 17 U/L 13-56 [facility] CO2 [Moles/Vol] 27.0 mmol/L 21.0-32.0 [facility] Globulin (S) [Mass/Vol] 3.6 g/dL 2.2-4.2 [facility] Urea nitrogen/Creatinine [Mass ratio] 11.6 mg/mg 10-20 [facility] - Hematology and Cell countsOrdered By: Dr. Abraham on 08-09-2022 Erythrocyte distribution width (RBC) [Entitic vol] 41.6 fL 35.1-43.9 [facility] Erythrocyte distribution width (RBC) [Ratio] 12.6 % 11.6-14.6 [facility] Immature granulocytes/100 WBC (Bld) 0.200 % 0.0-0.9 [facility] Comment on above: IG% - Immature Granu locytes (promyelocytes, myelocytes and metamyelocytes) > 1% indicates that a LEFT SHIFT is Present. MCH (RBC) [Entitic mass] 30.7 pg 27.0-32.0 [facility] Nucleated RBC/100 WBC (Bld) [Ratio] 0 % 0-5 [facility] MCHC Auto (RBC) [Mass/Vol]Or dered By: Dr. Abraham on 08-09-2022 MCHC (RBC) [Mass/Vol] 33.5 g/dL 32-36 [facility] No Panel InformationOrdered By: Dr. Abraham on 08-09-2022 Estimated GFR (MDRD) Amer 98 mL/min >60 [facility] Comment on above: GFR Calc Estimated GFR (MDRD) Non-Af Amer 81 mL/min >60 [facility] Comment on above: Non- GFR Calc Hepatitis A IgM Antibody Negative Negative [facility] Hepatitis B Core IgM Antibody Negative Negative [facility] Hepatitis C Antibody (EIA) Non-Reactive Non Reactive [facility] Hepatitis C Antibody Comment Comment . [facility] Comment on above: Not infected with HC V unless early or acute infection issuspected (which may be delayed in an immunocompromisedindividual), or other evidence exists to indicate HCVinfection.Performed at: - [facility] [id number] [place], [place] [id number] Director: Steve Salas PhD, Phone: [phone] Thyroid Stimulating Hormone (TSH) 1.22 uIU/mL 0.358-3.74 [facility] Platelets bldOrdered By: Dr. Abraham on 08-09-2022 Platelets (Bld) [#/Vol] 255 10*3/uL 150-450 [facility] Serum or plasma albumin bebeto urement (mass/volume)Ordered By: Dr. Abraham on 08-09-2022 Albumin [Mass/Vol] 4.4 g/dL 3.2-5.0 [facility] [place] Serum or plasma albumin/glob ulin mass ratioOrdered By: Dr. Abraham on 08-09-2022 Albumin/Globulin [Mass ratio] 1.2 {ratio} 0.9-2.4 [facility] Serum or plasma calcium bebeto urement (mass/volume)Ordered By: Dr. Abraham on 08-09-2022 Calcium [Mass/Vol] 9.3 mg/dL 8.5-10.1 [facility] [place] Serum or plasma cholesterol in HDL measurement (mass/volume)Ordered By: Dr. Abraham on 08-09-2022 Cholesterol in HDL [Mass/Vol] 62 mg/dL >40 [facility] Comment on above: The drugs N-Acetylcy steine and Metamizole may falsely depress this assay. Reference Range HDL <40 mg/dL Low HDL Cholesterol HDL >or= 60 mg/dL High HDL Cholesterol Serum or plasma cholesterol in VLDL measurement (mass/volume)Ordered By: Dr. Abraham on 08-09-2022 Cholesterol in VLDL [Mass/Vol] 27 mg/dL 5-40 [facility] Serum or plasma creatinine m easurement (mass/volume)Ordered By: Dr. Abraham on 08-09-2022 Creatinine [Mass/Vol] 0.86 mg/dL 0.55-1.02 [facility] Comment on above: The validity of the calculated GFR & GFRAA in patients over 70 years has not been determined. Clinical correlation is essential. Serum or plasma hepatitis B virus surface antigen detection by immunoassayOrdered By: Dr. Abraham on 08-09-2022 HBV surface Ag IA Ql Negative Negative [facility] Serum or plasma low density lipoprotein (LDL) cholesterol measurement (mass/volume)Ordered By: Dr. Abraham on 08-09-2022 Cholesterol in LDL [Mass/Vol] 75 mg/dL 0-130 [facility] Serum or plasma urea nitroge n measurement (mass/volume)Ordered By: Dr. Abraham on 08-09-2022 Urea nitrogen [Mass/Vol] 10 mg/dL 7-18 [facility] Thin prep Papanicolaou smear with manual screeningOrdered By: Dr. Abraham on 08-09-2022 Thin prep Papanicolaou smear with manual screening 9 U/L 15-37 [facility] Thin prep Papanicolaou smear with manual screening 7 5-15 [facility] Whole blood hemoglobin A1c/t otal hemoglobin ratio (mass fraction)Ordered By: Dr. Abraham on 08-09-2022 HbA1c (Bld) [Mass fraction] 4.5 % 3.8-5.6 [facility] Comment on above: Normal < 5.7 % Predi abetic 5.7 - 6.4 % Diabetic >or= 6.5 % Please note range changes. 2019 Novel Coronavirus (CoVI D-19), NAAon 02-29-2020 SARS-CoV-2, KATELYNN Not Detected Normal Not Detected [facility] Comment on above: Result Comment: This nucleic acid amplification test was developed and its performance characteristics determined by [employer]. Nucleic acid amplification tests include PCR and [...] detected) result in this assay. Performed at: [facility] [address] [facility] [place] [id number] [place] Director: Hermilo Campos MD, Phone: [phone] Performed By: #### C BC #### [address] [address] CXTHNon 02-18-2020 CXTHN Patient: NEVAEH ARREGUIN [id number] Location: [facility] Aount: [id number] : 1990 Age: 30 Sex F Lab NumbEr [id number] Requested by: PHUONG CROWDER Admitdate: 02/18/20 Source: THR Collected: 02/18/20 18:49 Site: Received : 02/18/20 19:17 Culture, Throat-Strep FINAL 02/20/20 10:32 02/20/[address] GR A: NEGATIVE FOR GROUP A BETA-HEMOLYTIC STREPTOCOCCUS Normal [facility] Comment on above: Performed By: #### C BC #### [address] [address] EMERGENCY DEPARTMENTon 11-24 [address] [id number] HEALTH INFORMATION MANAGEMENT EMERGENCY DEPARTMENT : Signed Patient: NEVAEH ARREGUIN Acct:[id number] MRU N: [id number] : 1990 Sex: F Loc: ED ADM [...] Abuse: No Hx Suspected Abuse: No - [place]/Gender ID What is your current Gender Identity? Choose all that Apply: Female - [place]-Suicide Severity Rating Scale 1) Wish to be [...] ideation - Skin Skin Color: Present: Normal, [place] Skin exam: Present: warm, dry - Expanded [...] % Lymph % (Auto) 21.8 (17.0-45.5) % [place] % (Auto) 7.3 (5.5-11.7) % Eos % [...] 14 (6-20) Glucose 90 (65-100) mg/dL Specific [place] (1.015-1.025) Calcium 8.6 (8.2-10.0) mg/dL Phosphorus (2.5-4.9) [...] Urine Appearance (Clear) Urine pH Ur Specific [place] (1.015-1.025) Urine Protein (Negative) Urine Ketones (Negative) [...] (43.0-65.0) % Lymph % (Auto) (17.0-45.5) % [place] % (Auto) (5.5-11.7) % Eos % (Auto) [...] BUN/Creatinine Ratio (6-20) Glucose (65-100) mg/dL Specific [place] 1.010 L (1.015-1.025) Calcium (8.2-10.0) mg/dL Phosphorus [...] (Clear) Urine pH 8 8.0 Ur Specific [place] 1.010 L (1.015-1.025) Urine Protein Negative (Negative) [...] (43.0-65.0) % Lymph % (Auto) (17.0-45.5) % [place] % (Auto) (5.5-11.7) % Eos % (Auto) [...] BUN/Creatinine Ratio (6-20) Glucose (65-100) mg/dL Specific [place] (1.015-1.025) Calcium (8.2-10.0) mg/dL Phosphorus (2.5-4.9) mg/dL Magnesium (1.3-2.3) mg/dL Total Bilirubin (0.00-0.99) mg/dL AST (3-39) U/L ALT (13-66) U/L Alkaline Phosphatase (54-112) U/L Troponin I, Quant (0.000-0.056) ng/mL Total Protein (6.1-8.2) g/dL Albumin (3.4-5.0) g/dL Globulin (1.5-4.5) g/dL Albumin/Globulin Ratio (1.1-2.5) Beta HCG, Quant mIU/mL Urine Color (Yellow) Urine Appearance (Clear) Urine pH Ur Specific [place] (1.015-1.025) Urine Protein (Negative) Urine Ketones (Negative) [...] report for findings IMPRESSIONS Electrocardiogram 11/18/19 14:38 [facility] ED Test Date: 2019-11-18 Test Time: 17:12:16 Pat Name: NEVAEH ARREGUIN Department: Room: Gender: F [employer]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 She denied any suicidal or homicidal ideation EKG showed sinus tachycardia, normal NC, QTc was 452 Consulted poison control who [...] do not have admission beds available at [facility] hence patient be transferred to [facility] for admission, supportive treatment and for cardiology consult Patient accepted at [facility]. Please see transfer record for further details Patient speech and grasp are intact. No acute neurovascular deficits noted. Patient states understanding of transfer to [facility] and agrees with management and plan - [...] management, discussion with poison control, discussion with data abstractor, arranging transfer of patient to tertiary care [...] Agreed With?: Yes - Dictation Amendments/Documentat ion: [employer] Document Only Electronically Generated By: BRIDGETT JOE MD Generated Date/Time: 11/18/19 1557 Electronically Signed By: BRIDGETT JOE MD Signed Date/Time 11/25/19 1827 Co Signed Electronically By: Co Signed Date/Time: CC: GEORGI GILLETTE Normal [facility] .GFRon 11-21-2019 GFR Non- >60 Normal [facility] ([place] Comment on above: Result Comment: GFR Population [...] meters Performed By: #### T KHAI #### [place] [address] GFR >60 Normal [facility] ([place] Comment on above: Result Comment: GFR Population [...] meters Performed By: #### T KHAI #### [address] [address] [facility] 11-21-2019 Creatinine [Mass/Vol] 0.68 mg/dL Normal 0.50-1.20 [facility] ([place] Comment on above: Performed By: #### T KHAI #### [address] [address] Urea nitrogen/Creatinine [Mass ratio] 13.2 ratio Normal 10.0-22.0 [facility] ([place] Comment on above: Performed By: #### T KHAI #### [address] [address] Calcium [Mass/Vol] 9.3 mg/dL Normal 8.4-10.1 [facility] ([place] Comment on above: Performed By: #### T KHAI #### [address] [address] Chloride [Moles/Vol] 114 mmol/L High 98-110 [facility] ([place] Comment on above: Performed By: #### T ORTIZI #### [address] [address] CO2 [Moles/Vol] 23 mmol/L Normal 22-32 [facility] ([place] Comment on above: Performed By: #### T ORTIZI #### [address] [address] Electrolyte Balance 8.0 mEq/L Normal 4.0-15.0 [facility] [place] Comment on above: Performed By: #### T KHAI #### [address] [address] Glucose [Mass/Vol] 95 mg/dL Normal 70-110 [facility] ([place] Comment on above: Performed By: #### T ROPI #### [place] [id number] Potassium [Moles/Vol] 3.2 mmol/L Low 3.5-5.0 [facility] ([place] Comment on above: Performed By: #### T ROPI #### [place] [id number] Sodium [Moles/Vol] 145 mmol/L Normal 136-145 [facility] ([place] Comment on above: Performed By: #### T ORTIZI #### [place] [id number] Urea nitrogen [Mass/Vol] 9.0 mg/dL Normal 8.0-22.0 [facility] ([place] Comment on above: Performed By: #### T ORTIZI #### [place] [address] .Auto Diffon 11-20-2019 Ammonia (P) [Mass/Vol] 0.40 10 3/mcL Normal 0.09-1.40 [facility] ([place] Comment on above: Performed By: #### T ROPI #### [address] [address] Basophils (Bld) [#/Vol] 0.00 10 3/mcL Normal 0.00-0.27 [facility] ([place] Comment on above: Performed By: #### T ROPI #### [address] [address] Basophils/100 WBC (Bld) 0.2 % Normal 0.0-2.5 [facility] ([place] Comment on above: Performed By: #### T ROPI #### [address] [address] Eosinophils (Bld) [#/Vol] 0.00 10 3/mcL Normal 0.00-0.65 [facility] ([place] Comment on above: Performed By: #### T ROPI #### [address] [address] Eosinophils/100 WBC (Bld) 0.4 % Normal 0.0-6.0 [facility] ([place] Comment on above: Performed By: #### T ROPI #### [address] [address] Lymphocytes (Bld) [#/Vol] 1.20 10 3/mcL Normal 0.90-4.32 [facility] ([place] Comment on above: Performed By: #### T ROPI #### [address] [address] Lymphocytes/100 WBC (Bld) 21.0 % Normal 20.0-40.0 [facility] ([place] Comment on above: Performed By: #### T ROPI #### [address] [address] Monocytes/100 WBC (Bld) 6.7 % Normal 2.0-13.0 [facility] ([place] Comment on above: Performed By: #### T ROPI #### [address] [address] Neutrophils/100 WBC (Bld) 71.7 % Normal 50.0-75.0 [facility] ([place] Comment on above: Performed By: #### T ROPI #### [address] [address] .GFRon 11-20-2019 GFR >60 Normal [facility] ([place] Comment on above: Result Comment: GFR Population [...] meters Performed By: #### T ORTIZI #### [place] [id number] GFR Non- >60 Normal [facility] ([place] Comment on above: Result Comment: GFR Population [...] meters Performed By: #### T KHAI #### [place] [address] .NEUABSon 11-20-2019 Neutrophils (Bld) [#/Vol] 3.90 10 3/mcL Normal 2.25-8.10 [facility] ([place] Comment on above: Performed By: #### T KHAI #### [place] [id number] CBCon 11-20-2019 Erythrocyte distribution width (RBC) [Ratio] 13.7 % Normal 11.5-15.5 [facility] ([place] Comment on above: Performed By: #### T ORTIZI #### [place] [id number] Hematocrit (Bld) [Volume fraction] 34.4 % Normal 34.0-46.0 [facility] ([place] Comment on above: Performed By: #### T ORTIZI #### [place] [id number] Hemoglobin (Bld) [Mass/Vol] 12.1 G/dL Normal 12.0-16.0 [facility] ([place] Comment on above: Performed By: #### T KHAI #### [place] [id number] MCH (RBC) [Entitic mass] 31.1 pg Normal 27.0-33.0 [facility] ([place] Comment on above: Performed By: #### T KHAI #### [address] [address] MCHC (RBC) [Mass/Vol] 35.1 G/dL Normal 32.0-36.0 [facility] ([place] Comment on above: Performed By: #### T KHAI #### [place] [id number] MCV (RBC) [Entitic vol] 88.5 fL Normal 80.0-99.0 [facility] ([place] Comment on above: Performed By: #### T KHAI #### [place] [id number] Platelet mean volume (Bld) [Entitic vol] 7.3 fL Normal 6.6-10.5 [facility] ([place] Comment on above: Performed By: #### Ilda RIDLEY #### [place] [id number] Platelets (Bld) [#/Vol] 252 10 3/mcL Normal 150-450 [facility] ([place] Comment on above: Performed By: #### T KHAI #### [place] [id number] RBC (Bld) [#/Vol] 3.89 10 6/mcL Low 4.10-5.30 [facility] ([place] Comment on above: Performed By: #### Ilda RIDLEY #### [place] [id number] WBC (Bld) [#/Vol] 5.50 10 3/mcL Normal 4.50-10.80 [facility] ([place] Comment on above: Performed By: #### T KHAI #### [address] [address] CMPon 11-20-2019 Albumin/Globulin [Mass ratio] 1.1 {ratio} Normal 0.9-1.6 [facility] ([place] Comment on above: Performed By: #### T ROPI #### [address] [address] ALP [Catalytic activity/Vol] 42 U/L Normal 38-126 [facility] ([place] Comment on above: Performed By: #### T ROPI #### [address] [address] ALT [Catalytic activity/Vol] 23 U/L Normal 10-49 [facility] ([place] Comment on above: Performed By: #### T ROPI #### [address] [address] Bili Total 1.0 mg/dL Normal 0.2-1.2 [facility] ([place] Comment on above: Result Comment: Use of this assay is not recommended for patients undergoing treatment with eltrombopag due to the potential for falsely elevated results. Performed By: #### T ORTIZI #### [place] [id number] Creatinine [Mass/Vol] 0.58 mg/dL Normal 0.50-1.20 [facility] ([place] Comment on above: Performed By: #### T ROPI #### [address] [address] Globulin (S) [Mass/Vol] 3.2 G/dL Normal 1.5-3.8 [facility] ([place] Comment on above: Performed By: #### T ROPI #### [address] [address] Protein [Mass/Vol] 6.6 G/dL Normal 6.0-8.5 [facility] ([place] Comment on above: Performed By: #### T ROPI #### [address] [address] Urea nitrogen/Creatinine [Mass ratio] 15.5 ratio Normal 10.0-22.0 [facility] ([place] Comment on above: Performed By: #### T ROPI #### [address] [address] Albumin [Mass/Vol] 3.4 G/dL Normal 3.2-4.8 [facility] ([place] Comment on above: Performed By: #### T ROPI #### [address] [address] AST [Catalytic activity/Vol] 15 U/L Normal 8-34 [facility] ([place] Comment on above: Performed By: #### T ROPI #### [address] [address] Calcium [Mass/Vol] 8.8 mg/dL Normal 8.4-10.1 [facility] [place] Comment on above: Performed By: #### T ROPI #### [address] [address] Chloride [Moles/Vol] 113 mmol/L High 98-110 [facility] ([place] Comment on above: Performed By: #### T ROPI #### [address] [address] CO2 [Moles/Vol] 20 mmol/L Low 22-32 [facility] ([place] Comment on above: Performed By: #### T ROPI #### [address] [address] Electrolyte Balance 8.0 mEq/L Normal 4.0-15.0 [facility] [place] Comment on above: Performed By: #### T ROPI #### [address] [address] Glucose [Mass/Vol] 89 mg/dL Normal 70-110 [facility] [place] Comment on above: Performed By: #### T ROPI #### [address] [address] Potassium [Moles/Vol] 3.6 mmol/L Normal 3.5-5.0 [facility] ([place] Comment on above: Performed By: #### T ROPI #### [address] [address] Sodium [Moles/Vol] 141 mmol/L Normal 136-145 [facility] ([place] Comment on above: Performed By: #### T ROPI #### [address] [address] Urea nitrogen [Mass/Vol] 9.0 mg/dL Normal 8.0-22.0 [facility] ([place] Comment on above: Performed By: #### T ORTIZI #### [place] [id number] DRUGUon 11-20-2019 Drug Screen Urine Negative Normal [facility] ([place] Comment on above: Performed By: #### T ORTIZI #### [place] [address] Drug Screen Urine Interp Urine shows no evidence of drugs routinely screened. [facility] ([place] Comment on above: Performed By: #### T ORTIZI #### [place] [id number] U pH Drug Scrn 7.0 Normal 5.0-8.0 [facility] ([place] Comment on above: Performed By: #### T ORTIZI #### [place] [address] U Specific [place] Drg Scrn 1.012 Normal 1.005-1.030 [facility] ([place] Comment on above: Performed By: #### T KHAI #### [place] [address] Urine Drugs screened: See Below Normal [facility] ([place] Comment on above: Result Comment: This drug [...] ONLY. Performed By: #### T KHAI #### [address] [address] MGon 11-20-2019 Magnesium [Mass/Vol] 2.0 mg/dL Normal 1.6-2.4 [facility] ([place] Comment on above: Performed By: #### T ORTIZI #### [place] [address] .Auto Diffon 11-19-2019 Ammonia (P) [Mass/Vol] 0.20 10 3/mcL Normal 0.09-1.40 [facility] ([place]) Comment on above: Performed By: #### C BC, ADIFF, ANEU, DRUGS #### [address] [address] Basophils (Bld) [#/Vol] 0.00 10 3/mcL Normal 0.00-0.27 [facility] ([place]) Comment on above: Performed By: #### C BC, ADIFF, ANEU, DRUGS #### [address] [address] Basophils/100 WBC (Bld) 0.1 % Normal 0.0-2.5 [facility] ([place]) Comment on above: Performed By: #### C BC, ADIFF, ANEU, DRUGS #### [address] [address] Eosinophils (Bld) [#/Vol] 0.00 10 3/mcL Normal 0.00-0.65 [facility] ([place]) Comment on above: Performed By: #### C BC, ADIFF, ANEU, DRUGS #### [address] [address] Eosinophils/100 WBC (Bld) 0.1 % Normal 0.0-6.0 [facility] ([place]) Comment on above: Performed By: #### C BC, ADIFF, ANEU, DRUGS #### [address] [address] Lymphocytes (Bld) [#/Vol] 0.80 10 3/mcL Low 0.90-4.32 [facility] ([place]) Comment on above: Performed By: #### C BC, ADIFF, ANEU, DRUGS #### [address] [address] Lymphocytes/100 WBC (Bld) 16.0 % Low 20.0-40.0 [facility] ([place]) Comment on above: Performed By: #### C BC, ADIFF, ANEU, DRUGS #### [address] [address] Monocytes/100 WBC (Bld) 4.5 % Normal 2.0-13.0 [facility] ([place] Comment on above: Performed By: #### C BCMARICRUZ, ANEU, DRUGS #### [address] [address] Neutrophils/100 WBC (Bld) 79.3 % High 50.0-75.0 [facility] ([place] Comment on above: Performed By: #### C BCMARICRUZ, ANEU, DRUGS #### [address] [address] .GFRon 11-19-2019 GFR >60 Normal [facility] ([place] Comment on above: Result Comment: GFR Population [...] meters Performed By: #### T KHAI #### [address] [address] GFR Non- >60 Normal [facility] ([place] Comment on above: Result Comment: GFR Population [...] meters Performed By: #### T ROPI #### [address] [address] .NEUABSon 11-19-2019 Neutrophils (Bld) [#/Vol] 4.20 10 3/mcL Normal 2.25-8.10 [facility] ([place] Comment on above: Performed By: #### C BC, ADIFF, ANEU, DRUGS #### [address] [address] BMPon 11-19-2019 Creatinine [Mass/Vol] 0.55 mg/dL Normal 0.50-1.20 [facility] ([place] Comment on above: Performed By: #### B MP, TSH, GFR #### [place] [address] Urea nitrogen/Creatinine [Mass ratio] 14.5 ratio Normal 10.0-22.0 [facility] ([place] Comment on above: Performed By: #### B MP, TSH, GFR #### [place] [id number] Calcium [Mass/Vol] 8.7 mg/dL Normal 8.4-10.1 [facility] ([place] Comment on above: Performed By: #### B MP, TSH, GFR #### [place] [id number] Chloride [Moles/Vol] 112 mmol/L High 98-110 [facility] ([place] Comment on above: Performed By: #### B MP, TSH, GFR #### [place] [id number] CO2 [Moles/Vol] 22 mmol/L Normal 22-32 [facility] ([place] Comment on above: Performed By: #### B MP, TSH, GFR #### [place] [id number] Electrolyte Balance 8.0 mEq/L Normal 4.0-15.0 [facility] [place] Comment on above: Performed By: #### B MP, TSH, GFR #### [place] [id number] Glucose [Mass/Vol] 94 mg/dL Normal 70-110 [facility] [place] Comment on above: Performed By: #### B MP, TSH, GFR #### [address] [address] Potassium [Moles/Vol] 3.4 mmol/L Low 3.5-5.0 [facility] ([place] Comment on above: Performed By: #### B MP, TSH, GFR #### [address] [address] Sodium [Moles/Vol] 142 mmol/L Normal 136-145 [facility] [place] Comment on above: Performed By: #### B MP, TSH, GFR #### [address] [address] Urea nitrogen [Mass/Vol] 8.0 mg/dL Normal 8.0-22.0 [facility] ([place] Comment on above: Performed By: #### B MP, TSH, GFR #### [address] [address] CBCon 11-19-2019 Erythrocyte distribution width (RBC) [Ratio] 14.0 % Normal 11.5-15.5 [facility] ([place] Comment on above: Performed By: #### C MARICRUZ SUAREZ ANEU, DRUGS #### [address] [address] Hematocrit (Bld) [Volume fraction] 34.9 % Normal 34.0-46.0 [facility] ([place] Comment on above: Performed By: #### C BC, MARICRUZ ANEU, DRUGS #### [address] [address] Hemoglobin (Bld) [Mass/Vol] 12.1 G/dL Normal 12.0-16.0 [facility] ([place] Comment on above: Performed By: #### C BC, MARICRUZ ANEU, DRUGS #### [address] [address] MCH (RBC) [Entitic mass] 31.1 pg Normal 27.0-33.0 [facility] ([place] Comment on above: Performed By: #### C BC, ADIFF, ANEU, DRUGS #### [address] [address] MCHC (RBC) [Mass/Vol] 34.6 G/dL Normal 32.0-36.0 [facility] ([place] Comment on above: Performed By: #### C BC, ADIFF, ANEU, DRUGS #### [place] [id number] MCV (RBC) [Entitic vol] 89.7 fL Normal 80.0-99.0 [facility] ([place] Comment on above: Performed By: #### C BC, ADIFF, ANEU, DRUGS #### [address] [address] Platelet mean volume (Bld) [Entitic vol] 7.2 fL Normal 6.6-10.5 [facility] ([place] Comment on above: Performed By: #### C BC, ADIFF, ANEU, DRUGS #### [place] [id number] Platelets (Bld) [#/Vol] 249 10 3/mcL Normal 150-450 [facility] ([place] Comment on above: Performed By: #### C BC, ADIFF, ANEU, DRUGS #### [address] [address] RBC (Bld) [#/Vol] 3.89 10 6/mcL Low 4.10-5.30 [facility] ([place] Comment on above: Performed By: #### C BC, ADIFF, ANEU, DRUGS #### [place] [id number] WBC (Bld) [#/Vol] 5.30 10 3/mcL Normal 4.50-10.80 [facility] ([place] Comment on above: Performed By: #### C BC, ADIFF, ANEU, DRUGS #### [place] [address] DIMERon 11-19-2019 Fibrin D-dimer FEU IA (Bld) [Mass/Vol] 208 ng/mL D-DU Normal 0-230 [facility] ([place] Comment on above: Result Comment: Resu lts [...] accordingly. Performed By: #### D STEPHANIE #### [place] [address] DRUGSon 11-19-2019 Acetaminophen [Mass/Vol] <2.0 Low 10.0-30.0 [facility] ([place] Comment on above: Performed By: #### C BC, ADIFF, ANEU, DRUGS #### [place] [address] Drug Screen (s) Negative Normal Negative [facility] ([place] Comment on above: Performed By: #### C BC, ADIFF, ANEU, DRUGS #### [place] [address] Drug Screen Interp Serum shows no evidence of drugs routinely screened [facility] ([place] Comment on above: Performed By: #### C BC, ADIFF, ANEU, DRUGS #### [place] [address] Ethanol Level <10.0 Normal [facility] ([place] Comment on above: Performed By: #### C BC, ADIFF, ANEU, DRUGS #### [place] [address] Salicylate Lvl (ds) <2.0 Low 10.0-25.0 [facility] [place] Comment on above: Performed By: #### C BC, ADIFF, ANEU, DRUGS #### [place] [address] Serum Drugs screened: See Below Normal [facility] ([place] Comment on above: Result Comment: This drug screen is a presumptive screening only. No confirmation will be performed unless requested. Drugs included in the ER serum drug screen are: Threshold Ethanol 10.0 mg/dL Salicylate 2.0 mg/dl Acetaminophen 2.0 mcg/mL Tricyclic Antidepressants 300 ng/mL Testing has been performed FOR MEDICAL PURPOSES ONLY. Performed By: #### C BC, ADSHAJI, ANEU, DRUGS #### [address] [address] TCA (s) Negative Normal [facility] ([place]) Comment on above: Performed By: #### C BC, ADIFF, ANEU, DRUGS #### [address] [address] FT4on 11-19-2019 Free T4 [Mass/Vol] 1.03 ng/dL Normal 0.60-1.70 [facility] ([place] Comment on above: Performed By: #### T ORTIZI #### [address] [address] TROPIon 11-19-2019 Troponin I.cardiac [Mass/Vol] ng/mL Normal 0.000-0.040 [facility] ([place]) Comment on above: Result Comment: Trop onin I reference ranges (01/25/14): 0.00-0.040 ng/mL Negative and non-diagnostic. >0.040 ng/mL Consistent with cardiac damage, increased clinical risk and possibility of myocardial infarction. Serial measurements, a rise & fall in test results, clinical history, appropriate symptoms and/or ECG changes may help assess possibility of MO. *Other non-acute coronary syndrome conditions such as CHF, myocarditis, pulmonary emboli, sepsis and cardiac surgery could result in myocardial damage and increased troponin levels. Performed By: #### T ROPI #### [address] [address] Troponin I.cardiac [Mass/Vol] ng/mL Normal 0.000-0.040 [facility] ([place]) Comment on above: Result Comment: Trop onin I reference ranges (01/25/14): 0.00-0.040 ng/mL Negative and non-diagnostic. >0.040 ng/mL Consistent with cardiac damage, increased clinical risk and possibility of myocardial infarction. Serial measurements, a rise & fall in test results, clinical history, appropriate symptoms and/or ECG changes may help assess possibility of MO. *Other non-acute coronary syndrome conditions such as CHF, myocarditis, pulmonary emboli, sepsis and cardiac surgery could result in myocardial damage and increased troponin levels. Performed By: #### T ROPI #### [address] [address] Troponin I.cardiac [Mass/Vol] ng/mL Normal 0.000-0.040 [facility] ([place]) Comment on above: Result Comment: Trop onin I reference ranges (01/25/14): 0.00-0.040 ng/mL Negative and non-diagnostic. >0.040 ng/mL Consistent with cardiac damage, increased clinical risk and possibility of myocardial infarction. Serial measurements, a rise & fall in test results, clinical history, appropriate symptoms and/or ECG changes may help assess possibility of MO. *Other non-acute coronary syndrome conditions such as CHF, myocarditis, pulmonary emboli, sepsis and cardiac surgery could result in myocardial damage and increased troponin levels. Performed By: #### T KHAI #### [address] [address] TSHon 11-19-2019 TSH Qn 0.150 mcIU/mL Low 0.360-3.740 [facility] ([place]) Comment on above: Performed By: #### T KHAI #### [address] [address] XR CHEST 1 VIEWon 11-19-2019 XR CHEST [...] 3:25:16 PM Ordering Provider:Jonnathan Johnson [facility] ([place]) Acetm Level W/ doseon 2019 Acetaminophen [Mass/Vol] <2.0 Low 10.0-30.0 [facility] Comment on above: Performed By: #### A CETM #### [facility] [place] [address] [place] [address] CBC w/Auto Differentialon Anemia 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 [facility] Comment on above: Performed By: #### C BC #### [facility] [place] [address] [place] [address] Anisocytosis Ql (Bld) 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 [facility] Comment on above: Performed By: #### C BC #### [facility] [place] [address] [place] [address] Basophils Abs. # 0.0 K/uL Normal 0.0-0.1 [facility] Comment on above: Performed By: #### C BC #### [facility] [place] [address] [place] [address] Basophils/100 WBC (Bld) 0.3 % Normal 0.2-1.0 [facility] Comment on above: Performed By: #### C BC #### [facility] [place] [address] [place] [address] Basophils/100 WBC (Bld) 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 [facility] Comment on above: Performed By: #### C BC #### [facility] [place] [address] [place] [address] Bosophillia # 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 [facility] Comment on above: Performed By: #### C BC #### [facility] [place] [address] [place] [address] Eosinophils (Bld) [#/Vol] 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 [facility] Comment on above: Performed By: #### C BC #### [facility] [place] [address] [place] [address] Eosinophils (Bld) [#/Vol] 0.1 10*3/uL Normal 0.0-0.2 [facility] Comment on above: Performed By: #### C BC #### [facility] [place] [address] [place] [address] Eosinophils/100 WBC (Bld) 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 [facility] Comment on above: Performed By: #### C BC #### [facility] [place] [address] [place] [address] Eosinophils/100 WBC (Bld) 1.3 % Normal 0.9-2.9 [facility] Comment on above: Performed By: #### C BC #### [facility] [place] [address] [place] [address] Erythocytosis 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 [facility] Comment on above: Performed By: #### C BC #### [facility] [address] [place] [address] Erythrocyte distribution width (RBC) [Ratio] 14.3 % Normal 11.5-14.5 [facility] Comment on above: Performed By: #### C BC #### [facility] [place] [address] [place] [address] Hematocrit (Bld) [Volume fraction] 32.8 % Low 33.4-46.0 [facility] Comment on above: Performed By: #### C BC #### [facility] [place] [address] [place] [address] Hemoglobin (Bld) [Mass/Vol] 11.3 g/dL Normal 11.1-13.7 [facility] Comment on above: Performed By: #### C BC #### [facility] [place] [address] [place] [address] Hypochromia 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 [facility] Comment on above: Performed By: #### C BC #### [facility] [place] [address] [place] [address] Large Platelets 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 [facility] Comment on above: Performed By: #### C BC #### [facility] [place] [address] [place] [address] Leukocytosis 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 [facility] Comment on above: Performed By: #### C BC #### [facility] [place] [address] [place] [address] Leukopenia 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 [facility] Comment on above: Performed By: #### C BC #### [facility] [place] [address] [place] [address] Lymphocytes (Bld) [#/Vol] 1.3 10*3/uL Normal 1.3-2.9 [facility] Comment on above: Performed By: #### C BC #### [facility] [place] [address] [place] [address] Lymphocytes (Bld) [#/Vol] 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 [facility] Comment on above: Performed By: #### C BC #### [facility] [place] [address] [place] [address] Lymphocytes/100 WBC (Bld) 21.8 % Normal 17.0-45.5 [facility] Comment on above: Performed By: #### C BC #### [facility] [place] [address] [place] [address] Lymphocytes/100 WBC (Bld) 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 [facility] Comment on above: Performed By: #### C BC #### [facility] [place] [address] [place] [address] Lymphocytosis # 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 [facility] Comment on above: Performed By: #### C BC #### [facility] [place] [address] [place] [address] Lymphocytosis % 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 [facility] Comment on above: Performed By: #### C BC #### [facility] [address] [place] [address] Macrocytosis 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 [facility] Comment on above: Performed By: #### C BC #### [facility] [address] [place] [address] MCH (RBC) [Entitic mass] 31.1 pg High 27.0-31.0 [facility] Comment on above: Performed By: #### C BC #### [facility] [address] [place] [address] MCHC (RBC) [Mass/Vol] 34.5 g/dL Normal 33.0-37.0 [facility] Comment on above: Performed By: #### C BC #### [facility] [address] [place] [address] MCV (RBC) [Entitic vol] 90.2 fL Normal 81.0-99.0 [facility] Comment on above: Performed By: #### C BC #### [facility] [address] [place] [address] Microcytosis 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 [facility] Comment on above: Performed By: #### C BC #### [facility] [address] [place] [address] Monocytes (Bld) [#/Vol] 0.4 10*3/uL Normal 0.3-0.8 [facility] Comment on above: Performed By: #### C BC #### [facility] [address] [place] [address] Monocytes/100 WBC (Bld) 7.3 % Normal 5.5-11.7 [facility] Comment on above: Performed By: #### C BC #### [facility] [place] [address] [place] [address] Monocytosis % 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 [facility] Comment on above: Performed By: #### C BC #### [facility] [place] [address] [place] [address] Neutropenia # 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 [facility] Comment on above: Performed By: #### C BC #### [facility] [place] [address] [place] [address] Neutropenia % 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 [facility] Comment on above: Performed By: #### C BC #### [facility] [place] [address] [place] [address] Neutrophils (Bld) [#/Vol] 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 [facility] Comment on above: Performed By: #### C BC #### [facility] [place] [address] [place] [address] Neutrophils Abs. # 4.2 K/uL Normal 2.2-4.8 [facility] Comment on above: Performed By: #### C BC #### [facility] [place] [address] [place] [address] Neutrophils/100 WBC (Bld) 69.3 % High 43.0-65.0 [facility] Comment on above: Performed By: #### C BC #### [facility] [place] [address] [place] [address] Neutrophils/100 WBC (Bld) 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 [facility] Comment on above: Performed By: #### C BC #### [facility] [place] [address] [place] [address] Nucleated RBC (Bld) [#/Vol] 0.0 10*3/uL Normal [facility] Comment on above: Performed By: #### C BC #### [facility] [place] [address] [place] [address] Nucleated RBC/100 WBC (Bld) [Ratio] 0.0 % Normal [facility] Comment on above: Performed By: #### C BC #### [facility] [place] [address] [place] [address] Pancytopenia 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 [facility] Comment on above: Performed By: #### C BC #### [facility] [place] [address] [place] [address] Platelet mean volume (Bld) [Entitic vol] 7.6 fL Normal 7.4-10.4 [facility] Comment on above: Performed By: #### C BC #### [facility] [place] [address] [place] [address] Platelets (Bld) [#/Vol] 217 10*3/uL Normal 148-402 [facility] Comment on above: Performed By: #### C BC #### [facility] [place] [address] [place] [address] Poikilocytosis 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 [facility] Comment on above: Performed By: #### C BC #### [facility] [place] [address] [place] [address] RBC (Bld) [#/Vol] 3.63 10*6/uL Low 3.83-5.19 [facility] Comment on above: Performed By: #### C BC #### [facility] [place] [address] [place] [address] Small Platelets 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 [facility] Comment on above: Performed By: #### C BC #### [facility] [place] [address] [place] [address] Thrombocytopenia 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 [facility] Comment on above: Performed By: #### C BC #### [facility] [address] [place] [address] Thrombocytopenia. 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 [facility] Comment on above: Performed By: #### C BC #### [facility] [address] [place] [address] Thrombocytosis 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 [facility] Comment on above: Performed By: #### C BC #### [facility] [address] [place] [address] WBC (Bld) [#/Vol] 6.1 10*3/uL Normal 3.6-10.8 [facility] Comment on above: Performed By: #### C BC #### [facility] [address] [place] [address] CHEST APon 11-18-2019 CHEST AP EXAMINATION: ONE XRAY VIEW OF THE CHEST 11/18/2019 4:31 pm COMPARISON: None. HISTORY: ORDERING SYSTEM PROVIDED HISTORY: palpitations FINDINGS: The lungs are without acute focal process. There is no effusion or pneumothorax. The cardiomediastinal silhouette is without acute process. The osseous structures are without acute process. IMPRESSION: No acute process. Normal [facility] Comprehensive Metabolic Pane roseanne 11-18-2019 Albumin [Mass/Vol] 3.3 g/dL Low 3.4-5.0 [facility] Comment on above: Performed By: #### C MP #### [facility] [address] [place] [address] Albumin/Globulin [Mass ratio] 0.9 {ratio} Low 1.1-2.5 [facility] Comment on above: Performed By: #### C MP #### [facility] [address] [place] [address] ALP [Catalytic activity/Vol] 44 U/L Low 54-112 [facility] Comment on above: Performed By: #### C MP #### [facility] [address] [facility] [place] [address] ALT [Catalytic activity/Vol] 32 U/L Normal 13-66 [facility] Comment on above: Performed By: #### C MP #### [facility] [address] [place] [address] Anion gap [Moles/Vol] 9.9 mmol/L Normal 8.0-16.0 [facility] Comment on above: Performed By: #### C MP #### [facility] [address] [place] [address] AST [Catalytic activity/Vol] 24 U/L Normal 3-39 [facility] Comment on above: Performed By: #### C MP #### [facility] [address] [place] [address] Bilirubin Ql (U) 0.69 mg/dL Normal 0.00-0.99 [facility] Comment on above: Performed By: #### C MP #### [facility] [address] [place] [address] Calcium [Mass/Vol] 8.6 mg/dL Normal 8.2-10.0 [facility] Comment on above: Performed By: #### C MP #### [facility] [address] [place] [address] Chloride [Moles/Vol] 106 mmol/L Normal 94-110 [facility] Comment on above: Performed By: #### C MP #### [facility] [address] [place] [address] CO2 [Moles/Vol] 30 mmol/L Normal 21-34 [facility] Comment on above: Performed By: #### C MP #### [facility] [address] [place] [address] Creatinine [Mass/Vol] 0.62 mg/dL Normal 0.51-0.95 [facility] Comment on above: Performed By: #### C MP #### [facility] [address] [place] [address] GFR/1.73 sq M predicted among blacks MDRD (S/P/Bld) [Vol rate/Area] mL/min/{1.73_m2} Normal >60 [facility] Comment on above: Result Comment: Retina Subspecialist belem Kidney Disease less than 60 mL/min/1.73 m2 Kidney Failure less than 15 mL/min/1.73 m2 Average estimated GFR by age: 20-29 years 116 mL/min/1.73 m2 Performed By: #### C MP #### [facility] [address] [place] [address] GFR/1.73 sq M predicted among non-blacks MDRD (S/P/Bld) [Vol rate/Area] mL/min/{1.73_m2} Normal >60 [facility] Comment on above: Performed By: #### C MP #### [facility] [address] [place] [address] Globulin (S) [Mass/Vol] 3.5 g/dL Normal 1.5-4.5 [facility] Comment on above: Performed By: #### C MP #### [facility] [address] [place] [address] Glucose [Mass/Vol] 90 mg/dL Normal 65-100 [facility] Comment on above: Performed By: #### C MP #### [facility] [address] [place] [address] Potassium [Moles/Vol] 3.9 mmol/L Normal 3.3-5.1 [facility] Comment on above: Performed By: #### C MP #### [facility] [place] [address] [place] [address] Protein [Mass/Vol] 6.8 g/dL Normal 6.1-8.2 [facility] Comment on above: Performed By: #### C MP #### [facility] [address] [place] [address] Sodium [Moles/Vol] 142 mmol/L Normal 132-145 [facility] Comment on above: Performed By: #### C MP #### [facility] [address] [place] [address] Urea nitrogen [Mass/Vol] 8.9 mg/dL Normal 3.2-26.9 [facility] Comment on above: Performed By: #### C MP #### [facility] [address] [place] [address] Urea nitrogen/Creatinine [Mass ratio] 14 mg/mg Normal 6-20 [facility] Comment on above: Performed By: #### C MP #### [facility] [address] [place] [address] Ethanol (Medical)on 11-18-19 20 Ethanol [Mass/Vol] mg/dL Normal 0.0-0.0 [facility] Comment on above: Performed By: #### A LC #### [facility] [address] [place] [address] HCG Quanton 11-18-2019 HCG Quant <1 Normal [facility] Comment on above: Result Comment: Expe cted values for Quantitative HCG Assay: Years Range Male 19-83 0-2 mIU/mL Non- female 22-87 0-6 mIU/mL Maxium level of 5,000 to 200,000 mIU/mL is reached at 10-12wks. Levels decline slowly to 1,000-50,000 during 3rd trimester.wks. Please note reference range change Effective: 06-04-03 Performed By: #### H CGQ #### [facility] [place] [address] [place] [address] Magnesiumon 11-18-2019 Magnesium [Mass/Vol] 1.7 mg/dL Normal 1.3-2.3 [facility] Comment on above: Performed By: #### C BC #### [facility] [address] [place] [address] Phosphoruson 11-18-2019 Phosphate [Mass/Vol] 3.4 mg/dL Normal 2.5-4.9 [facility] Comment on above: Performed By: #### C BC #### [facility] [address] [place] [address] Salic Level W/ doseon 2019 Salicylate <2.8 Normal 2.8-20.0 [facility] Comment on above: Performed By: #### S ALIC #### [facility] [address] [place] [address] Troponin ion 11-18-2019 Troponin I.cardiac [Mass/Vol] ng/mL Normal 0.000-0.056 [facility] Comment on above: Result Comment: myocardial injury. [...] guidelines and the third universal definition of MO. The 2012 Third [place] Definition of MO defines a positive troponin as an elevation [...] specimen. Performed By: #### L TROP #### [facility] [place] [address] [place] [address] UA w/reflex cultureon 2019 Appearance (U) CLEAR Normal Clear [facility] Comment on above: Performed By: #### C BC #### [facility] [place] [address] [place] [address] Bilirubin Ql (U) Negative Normal Negative [facility] Comment on above: Performed By: #### C BC #### [facility] [place] [address] [place] [address] Blood Negative Normal Negative [facility] Comment on above: Performed By: #### C BC #### [facility] [place] [address] [place] [address] Color (U) P. YELLOW Normal Yellow [facility] Comment on above: Performed By: #### C BC #### [facility] [place] [address] [place] [address] Glucose [Mass/Vol] NORMAL Normal Negative [facility] Comment on above: Performed By: #### C BC #### [facility] [place] [address] [place] [address] Ketones Ql (U) Negative Normal Negative [facility] Comment on above: Performed By: #### C BC #### [facility] [place] [address] [place] [address] Leukocytes Esterase TRACE Abnormal Negative [facility] Comment on above: Performed By: #### C BC #### [facility] [place] [address] [place] [address] Nitrite Ql (U) Negative Normal Negative [facility] Comment on above: Performed By: #### C BC #### [facility] [address] [place] [address] pH (U) 8 [pH] Normal [facility] Comment on above: Performed By: #### C BC #### [facility] [address] [place] [address] Protein [Mass/Vol] Negative Normal Negative [facility] Comment on above: Performed By: #### C BC #### [facility] [address] [place] [address] Specific gravity (U) [Rel density] 1.010 Low 1.015-1.025 [facility] Comment on above: Performed By: #### C BC #### [facility] [address] [place] [address] Order Comment: Drug Screen Comment No Performed By: #### D RUGR #### [facility] [address] [place] [address] Urobilinogen Qn (U) NORMAL Normal Normal-1.0 [facility] Comment on above: Performed By: #### C BC #### [facility] [address] [place] [address] Urine Drug Screeningon 11-17 Amphetamines Ql (U) Negative Normal [facility] Comment on above: Order Comment: Drug Screen Comment No Result Comment: cuto ff 1000 ng/mL Performed By: #### D RUGR #### [facility] [place] [address] [place] [address] Barbiturates Negative Normal [facility] Comment on above: Order Comment: Drug Screen Comment No Result Comment: cuto ff 200 ng/mL Performed By: #### D RUGR #### [facility] [place] [address] [place] [address] Benzodiazepines Ql (U) Negative Normal [facility] Comment on above: Order Comment: Drug Screen Comment No Result Comment: cuto ff 200 ng/mL Performed By: #### D RUGR #### [facility] [place] [address] [place] [address] Cocaine Ql (U) Negative [facility] Comment on above: Order Comment: Drug Screen Comment No Result Comment: cuto ff 300 ng/mL Performed By: #### D RUGR #### [facility] [place] [address] [place] [address] Opiates Ql (U) Negative [facility] Comment on above: Order Comment: Drug Screen Comment No Result Comment: cuto ff 300 ng/mL Performed By: #### D RUGR #### [facility] [place] [address] [place] [address] pH (Bld) 8.0 Normal 5.0-8.0 [facility] Comment on above: Order Comment: Drug Screen Comment No Performed By: #### D RUGR #### [facility] [place] [address] [place] [address] Phencyclidine Ql (U) Negative Normal [facility] Comment on above: Order Comment: Drug Screen Comment No Result Comment: cuto ff 25 ng/mL Performed By: #### D RUGR #### [facility] [place] [address] [place] [address] THC Negative [facility] Comment on above: Order Comment: Drug Screen Comment No Result Comment: cuto ff 50 ng/mL Performed By: #### D RUGR #### [facility] [address] [place] [address] - - Normal [facility] Comment on above: Order Comment: Drug Screen Comment No Result Comment: . Drug Screen Comment: This assay provides a preliminary unconfirmed analytical test result that may be suitable for the clinical management of patients in certain situations. Some [id number] medications, as well as adulterants, may cause inaccurate results. Screen only testing does not meet the [facility] Forensic Urine Drug Testing Program requirements as a forensic urine drug test for workplace testing. . Performed By: #### D RUGR #### [facility] [address] [place] [address] Urine Microscopicon 11-18-19 20 Bacteria LM.HPF (Urine sed) [#/Area] 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 0 - 1+ [facility] Comment on above: Performed By: #### C BC #### [facility] [address] [place] [address] Casts LM.LPF (Urine sed) [#/Area] 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 [facility] Comment on above: Performed By: #### C BC #### [facility] [address] [place] [address] Crystals LM Nom (Urine sed) 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 [facility] Comment on above: Performed By: #### C BC #### [facility] [place] [address] [place] [address] Crystals LM Nom (Urine sed) Rare Amorphous Normal [facility] Comment on above: Performed By: #### C BC #### [facility] [address] [place] [address] Epithelial cells LM.HPF (Urine sed) [#/Area] 0-2 Normal 0 - 6 [facility] Comment on above: Performed By: #### C BC #### [facility] [place] [address] [place] [address] Mucus Ql (Urine sed) 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 [facility] Comment on above: Performed By: #### C BC #### [facility] [place] [address] [place] [address] RBC (U) [#/Vol] None Seen Normal 0 - 2 [facility] Comment on above: Performed By: #### C BC #### [facility] [place] [address] [place] [address] Trichomonas 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 [facility] Comment on above: Performed By: #### C BC #### [facility] [place] [address] [place] [address] WBC (Bld) [#/Vol] 0-2 Normal 0 - 6 [facility] Comment on above: Performed By: #### C BC #### [facility] [place] [address] [place] [address] Yeast LM Ql (Urine sed) 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 [facility] Comment on above: Performed By: #### C BC #### [facility] [place] [address] [place] [address] Other 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 [facility] Comment on above: Performed By: #### C BC #### [facility] [place] [address] [place] [address] CBC w/Auto Differentialon Anemia SENIOR ORACLE DEVELOPER [facility] Comment on above: Performed By: #### C BC #### [facility] [place] [address] [place] [address] Anisocytosis Ql (Bld) 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 [facility] Comment on above: Performed By: #### C BC #### [facility] [place] [address] [facility] [place] [address] Basophils Abs. # 0.0 K/uL Normal 0.0-0.1 [facility] Comment on above: Performed By: #### C BC #### [facility] [place] [address] [facility] [place] [address] Basophils/100 WBC (Bld) 0.5 % Normal 0.2-1.0 [facility] Comment on above: Performed By: #### C BC #### [facility] [place] [address] [facility] [place] [address] Basophils/100 WBC (Bld) 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 [facility] Comment on above: Performed By: #### C BC #### [facility] [place] [address] [place] [address] Bosophillia # SENIOR ORACLE DEVELOPER [facility] Comment on above: Performed By: #### C BC #### [facility] [place] [address] [place] [address] Eosinophils (Bld) [#/Vol] 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 [facility] Comment on above: Performed By: #### C BC #### [facility] [place] [address] [place] [address] Eosinophils (Bld) [#/Vol] 0.0 10*3/uL Normal 0.0-0.2 [facility] Comment on above: Performed By: #### C BC #### [facility] [place] [address] [facility] [place] [address] Eosinophils/100 WBC (Bld) 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 [facility] Comment on above: Performed By: #### C BC #### [facility] [place] [address] [facility] [place] [address] Eosinophils/100 WBC (Bld) 0.3 % Low 0.9-2.9 [facility] Comment on above: Performed By: #### C BC #### [facility] [place] [address] [place] [address] Erythocytosis 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 [facility] Comment on above: Performed By: #### C BC #### [facility] [place] [address] [facility] [place] [address] Erythrocyte distribution width (RBC) [Ratio] 14.7 % High 11.5-14.5 [facility] Comment on above: Performed By: #### C BC #### [facility] [place] [address] [place] [address] Hematocrit (Bld) [Volume fraction] 37.5 % Normal 33.4-46.0 [facility] Comment on above: Performed By: #### C BC #### [facility] [place] [address] [place] [address] Hemoglobin (Bld) [Mass/Vol] 12.9 g/dL Normal 11.1-13.7 [facility] Comment on above: Performed By: #### C BC #### [facility] [place] [address] [place] [address] Hypochromia 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 [facility] Comment on above: Performed By: #### C BC #### [facility] [place] [address] [place] [address] Large Platelets 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 [facility] Comment on above: Performed By: #### C BC #### [facility] [place] [address] [place] [address] Leukocytosis 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 [facility] Comment on above: Performed By: #### C BC #### [facility] [place] [address] [place] [address] Leukopenia 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 [facility] Comment on above: Performed By: #### C BC #### [facility] [place] [address] [place] [address] Lymphocytes (Bld) [#/Vol] 1.4 10*3/uL Normal 1.3-2.9 [facility] Comment on above: Performed By: #### C BC #### [facility] [place] [address] [place] [address] Lymphocytes (Bld) [#/Vol] 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 [facility] Comment on above: Performed By: #### C BC #### [facility] [place] [address] [place] [address] Lymphocytes/100 WBC (Bld) 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 [facility] Comment on above: Performed By: #### C BC #### [facility] [place] [address] [place] [address] Lymphocytes/100 WBC (Bld) 27.6 % Normal 17.0-45.5 [facility] Comment on above: Performed By: #### C BC #### [facility] [place] [address] [place] [address] Lymphocytosis # 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 [facility] Comment on above: Performed By: #### C BC #### [facility] [place] [address] [place] [address] Lymphocytosis % 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 [facility] Comment on above: Performed By: #### C BC #### [facility] [place] [address] [place] [address] Macrocytosis 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 [facility] Comment on above: Performed By: #### C BC #### [facility] [address] [place] [address] MCH (RBC) [Entitic mass] 30.8 pg Normal 27.0-31.0 [facility] Comment on above: Performed By: #### C BC #### [facility] [address] [place] [address] MCHC (RBC) [Mass/Vol] 34.3 g/dL Normal 33.0-37.0 [facility] Comment on above: Performed By: #### C BC #### [facility] [address] [place] [address] MCV (RBC) [Entitic vol] 89.8 fL Normal 81.0-99.0 [facility] Comment on above: Performed By: #### C BC #### [facility] [address] [place] [address] Microcytosis 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 [facility] Comment on above: Performed By: #### C BC #### [facility] [address] [place] [address] Monocytes (Bld) [#/Vol] 0.4 10*3/uL Normal 0.3-0.8 [facility] Comment on above: Performed By: #### C BC #### [facility] [address] [place] [address] Monocytes/100 WBC (Bld) 7.4 % Normal 5.5-11.7 [facility] Comment on above: Performed By: #### C BC #### [facility] [address] [place] [address] Monocytosis % 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 [facility] Comment on above: Performed By: #### C BC #### [facility] [address] [place] [address] Neutropenia # 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 [facility] Comment on above: Performed By: #### C BC #### [facility] [place] [address] [place] [address] Neutropenia % 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 [facility] Comment on above: Performed By: #### C BC #### [facility] [place] [address] [place] [address] Neutrophils (Bld) [#/Vol] 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 [facility] Comment on above: Performed By: #### C BC #### [facility] [place] [address] [place] [address] Neutrophils Abs. # 3.3 K/uL Normal 2.2-4.8 [facility] Comment on above: Performed By: #### C BC #### [facility] [place] [address] [place] [address] Neutrophils/100 WBC (Bld) 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 [facility] Comment on above: Performed By: #### C BC #### [facility] [place] [address] [place] [address] Neutrophils/100 WBC (Bld) 64.2 % Normal 43.0-65.0 [facility] Comment on above: Performed By: #### C BC #### [facility] [place] [address] [place] [address] Nucleated RBC (Bld) [#/Vol] 0.0 10*3/uL Normal [facility] Comment on above: Performed By: #### C BC #### [facility] [place] [address] [place] [address] Nucleated RBC/100 WBC (Bld) [Ratio] 0.0 % Normal [facility] Comment on above: Performed By: #### C BC #### [facility] [place] [address] [place] [address] Pancytopenia 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 [facility] Comment on above: Performed By: #### C BC #### [facility] [place] [address] [place] [address] Platelet mean volume (Bld) [Entitic vol] 7.6 fL Normal 7.4-10.4 [facility] Comment on above: Performed By: #### C BC #### [facility] [place] [address] [place] [address] Platelets (Bld) [#/Vol] 230 10*3/uL Normal 148-402 [facility] Comment on above: Performed By: #### C BC #### [facility] [place] [address] [place] [address] Poikilocytosis 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 [facility] Comment on above: Performed By: #### C BC #### [facility] [place] [address] [place] [address] RBC (Bld) [#/Vol] 4.18 10*6/uL Normal 3.83-5.19 [facility] Comment on above: Performed By: #### C BC #### [facility] [place] [address] [place] [address] Small Platelets 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 [facility] Comment on above: Performed By: #### C BC #### [facility] [place] [address] [place] [address] Thrombocytopenia 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 [facility] Comment on above: Performed By: #### C BC #### [facility] [place] [address] [place] [address] Thrombocytopenia. 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 [facility] Comment on above: Performed By: #### C BC #### [facility] [place] [address] [place] [address] Thrombocytosis 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 [facility] Comment on above: Performed By: #### C BC #### [facility] [place] [address] [place] [address] WBC (Bld) [#/Vol] 5.1 10*3/uL Normal 3.6-10.8 [facility] Comment on above: Performed By: #### C BC #### [facility] [place] [address] [place] [address] Comprehensive Metabolic Pane roseanne 11-09-2019 Albumin [Mass/Vol] 4.1 g/dL Normal 3.4-5.0 [facility] Comment on above: Performed By: #### C MP #### [facility] [place] [address] [place] [address] Albumin/Globulin [Mass ratio] 1.1 {ratio} Normal 1.1-2.5 [facility] Comment on above: Performed By: #### C MP #### [facility] [place] [address] [place] [address] ALP [Catalytic activity/Vol] 52 U/L Low 54-112 [facility] Comment on above: Performed By: #### C MP #### [facility] [place] [address] [place] [address] ALT [Catalytic activity/Vol] 17 U/L Normal 13-66 [facility] Comment on above: Performed By: #### C MP #### [facility] [place] [address] [place] [address] Anion gap [Moles/Vol] 11.8 mmol/L Normal 8.0-16.0 [facility] Comment on above: Performed By: #### C MP #### [facility] [address] [place] [address] AST [Catalytic activity/Vol] 15 U/L Normal 3-39 [facility] Comment on above: Performed By: #### C MP #### [facility] [address] [place] [address] Bilirubin Ql (U) 0.83 mg/dL Normal 0.00-0.99 [facility] Comment on above: Performed By: #### C MP #### [facility] [address] [place] [address] Calcium [Mass/Vol] 8.7 mg/dL Normal 8.2-10.0 [facility] Comment on above: Performed By: #### C MP #### [facility] [address] [place] [address] Chloride [Moles/Vol] 107 mmol/L Normal 94-110 [facility] Comment on above: Performed By: #### C MP #### [facility] [address] [place] [address] CO2 [Moles/Vol] 28 mmol/L Normal 21-34 [facility] Comment on above: Performed By: #### C MP #### [facility] [address] [place] [address] Creatinine [Mass/Vol] 0.80 mg/dL Normal 0.51-0.95 [facility] Comment on above: Performed By: #### C MP #### [facility] [address] [place] [address] GFR/1.73 sq M predicted among blacks MDRD (S/P/Bld) [Vol rate/Area] mL/min/{1.73_m2} Normal >60 [facility] Comment on above: Result Comment: Retina Subspecialist belem Kidney Disease less than 60 mL/min/1.73 m2 Kidney Failure less than 15 mL/min/1.73 m2 Average estimated GFR by age: 20-29 years 116 mL/min/1.73 m2 Performed By: #### C MP #### [facility] [address] [place] [address] GFR/1.73 sq M predicted among non-blacks MDRD (S/P/Bld) [Vol rate/Area] mL/min/{1.73_m2} Normal >60 [facility] Comment on above: Performed By: #### C MP #### [facility] [address] [place] [address] Globulin (S) [Mass/Vol] 3.6 g/dL Normal 1.5-4.5 [facility] Comment on above: Performed By: #### C MP #### [facility] [address] [place] [address] Glucose [Mass/Vol] 91 mg/dL Normal 65-100 [facility] Comment on above: Performed By: #### C MP #### [facility] [address] [place] [address] Potassium [Moles/Vol] 3.8 mmol/L Normal 3.3-5.1 [facility] Comment on above: Performed By: #### C MP #### [facility] [address] [place] [address] Protein [Mass/Vol] 7.7 g/dL Normal 6.1-8.2 [facility] Comment on above: Performed By: #### C MP #### [facility] [address] [place] [address] Sodium [Moles/Vol] 143 mmol/L Normal 132-145 [facility] Comment on above: Performed By: #### C MP #### [facility] [address] [place], [place] [id number] Urea nitrogen [Mass/Vol] 11.8 mg/dL Normal 3.2-26.9 [facility] Comment on above: Performed By: #### C MP #### [facility] [address] [place], [place] [id number] Urea nitrogen/Creatinine [Mass ratio] 15 mg/mg Normal 6-20 [facility] Comment on above: Performed By: #### C MP #### [facility] [address] [place], [place] [id number] LCHGCon 10-05-2019 [facility] Chlamy trachomatis, KATELYNN = Negative Neiss gonorrhoeae, KATELYNN = Negative Performed at: =[address] [id number] Camp Director: Luz Marina Sherman MD, Phone: [phone] Source Chlamy/GC Amp = urine Normal [facility] Comment on above: Performed By: #### M IC2 #### [facility] [address] [place], [place] [id number] CBCon 09-14-2019 Erythrocyte distribution width (RBC) [Ratio] 12.8 % 11.5 - 14.5 % [facility] Hematocrit (Bld) [Volume fraction] 41.8 % 33.6 - 46.8 % [facility] Hemoglobin (Bld) [Mass/Vol] 13.7 g/dL 11.7 - 15.8 g/dL [facility] MCH (RBC) [Entitic mass] 29.7 pg 27.5 - 32.3 pg [facility] MCHC (RBC) [Mass/Vol] 32.8 g/dL 30.7 - 35.5 g/dl [facility] MCV (RBC) [Entitic vol] 90.7 fL 80.2 - 99 fL [facility] Platelets (Bld) [#/Vol] 245.0 10*3/uL [facility] RBC (Bld) [#/Vol] 4.61 10*6/uL [facility] WBC LM Ql (Sput) 5.2 [facility] Comprehensive metabolic pane l aka [employer] 09-14-2019 Albumin [Mass/Vol] 4.5 g/dL 3.5 - 5 g/dL [facility] Alk Phos 40 U/L 24 - 126 U/L [facility] ALT [Catalytic activity/Vol] 15 U/L 9 - 52 U/L [facility] AST [Catalytic activity/Vol] 17 U/L 3 - 47 U/L [facility] Bilirubin [Mass/Vol] 0.6 mg/dL 0.2 - 1 .6 mg/dL [facility] Calcium [Mass/Vol] 10.0 mg/dL 8.4 - 10. 4 mg/dL [facility] Chloride [Moles/Vol] 107 mmol/L 96 - 10 9 mmol/L [facility] CO2 [Moles/Vol] 22 mmol/L 22 - 30 mmol/L [facility] Comprehensive metabolic 2000 panel 0.86 mg/dL 0.52 - 1.04 mg/dL [facility] Glucose [Mass/Vol] 121 mg/dL High 65 - 100 mg/dL [facility] Interpretation and review of laboratory results Abnormal [facility] Potassium [Moles/Vol] 3.8 mmol/L 3.6 - 5.1 mmol/L [facility] Protein [Mass/Vol] 7.8 g/dL 6.3 - 8.2 g/dL [facility] Sodium [Moles/Vol] 142 mmol/L 135 - 147 mmol/L [facility] Urea nitrogen [Mass/Vol] 11 mg/dL 8 - 20 mg/dL [facility] GLOMERULAR FILTRATION RATEon 09-14-2019 GFR/1.73 sq M.predicted MDRD (S/P/Bld) [Vol rate/Area] mL/min/{1.73_m2} [facility] Comment on above: To estimate the GFR [...] 08-19 HAV IgM Qn (S) Nonreactive Nonreactive [facility] HCV Ab Qn (S) Nonreactive Nonreactive [facility] Hep B Core-M AB Nonreactive Nonreactive [facility] Hep B Surf AG Nonreactive Nonreactive [facility] HIV-1 and HIV-2 antibodieson 09-14-2019 HIV 1+2 Ab Ql (S) Nonreactive Nonreactive [facility] Comment on above: Nonreactive No detectable HIV-1p24 Antigen or HIV-1/HIV2 antibodies Syphilis Treponema Antibodyo n 09-14-2019 Syphilis Treponema Antibody Nonreactive Nonreactive [facility] Vital Signs Date Time Vital Sign Value Performing Clinician Facility 10-26-2024 18:48-0400 Body mass index (BMI) [Ratio] 23.15 kg/m2 Catie Flores APRN.CNP Work Phone: [facility] 10-26-2024 18:48-0400 Body temperature 97.59 [degF] Catie Flores APRN.CNP Work Phone: [facility] 10-26-2024 18:48-0400 Body weight 70.6 kg Catie Flores APRN.CNP Work Phone: [facility] 10-26-2024 18:48-0400 Diastolic blood pressure 82 mm[Hg] Catie Flores APRN.CNP Work Phone: [facility] 10-26-2024 18:48-0400 Heart rate 101 /min Catie Sandra PT SKILLED.PROMOTION WRITER Work Phone: [facility] 10-26-2024 18:48-0400 Respiratory rate 18 /min Catie Sandra PT SKILLED.PROMOTION WRITER Work Phone: [facility] 10-26-2024 18:48-0400 SaO2% (BldA) [Mass fraction] 99 % Catie Sandra PT SKILLED.PROMOTION WRITER Work Phone: [facility] 10-26-2024 18:48-0400 Systolic blood pressure 132 mm[Hg] Catie Sandra PT SKILLED.PROMOTION WRITER Work Phone: [facility] 04-14-2024 17:00-0500 Body mass index (BMI) [Ratio] 27.48 kg/m2 Tucker Claus PT SKILLED.PROMOTION WRITER Work Phone: [facility] 04-14-2024 17:00-0500 Body temperature 98.1 [degF] Tucker Claus PT SKILLED.PROMOTION WRITER Work Phone: [facility] 04-14-2024 17:00-0500 Body weight 83.8 kg Tucker Devlin PT SKILLED.PROMOTION WRITER Work Phone: [facility] 04-14-2024 17:00-0500 Diastolic blood pressure 84 mm[Hg] Tucker Claus PT SKILLED.PROMOTION WRITER Work Phone: [facility] 04-14-2024 17:00-0500 Heart rate 96 /min Tucker Claus PT SKILLED.PROMOTION WRITER Work Phone: [facility] 04-14-2024 17:00-0500 Respiratory rate 18 /min Tucker Claus PT SKILLED.PROMOTION WRITER Work Phone: [facility] 04-14-2024 17:00-0500 SaO2% (BldA) [Mass fraction] 100 % Tucker Claus PT SKILLED.PROMOTION WRITER Work Phone: [facility] 04-14-2024 17:00-0500 Systolic blood pressure 129 mm[Hg] Tucker Claus PT SKILLED.PROMOTION WRITER Work Phone: [facility] 10-07-2023 16:31-0400 Body mass index (BMI) [Ratio] 26.79 kg/m2 Tucker Claus PT SKILLED.PROMOTION WRITER Work Phone: [facility] 10-07-2023 16:31-0400 Body temperature 99 [degF] Tucker Claus PT SKILLED.PROMOTION WRITER Work Phone: [facility] 10-07-2023 16:31-0400 Body weight 81.7 kg Tuckerazul Devlin PT SKILLED.PROMOTION WRITER Work Phone: [facility] 10-07-2023 16:31-0400 Diastolic blood pressure 80 mm[Hg] Tucker Claus PT SKILLED.PROMOTION WRITER Work Phone: [facility] 10-07-2023 16:31-0400 Heart rate 98 /min Tucker Devlin PT SKILLED.PROMOTION WRITER Work Phone: [facility] 10-07-2023 16:31-0400 Respiratory rate 18 /min Tuckerazul Devlin PT SKILLED.PROMOTION WRITER Work Phone: [facility] 10-07-2023 16:31-0400 SaO2% (BldA) [Mass fraction] 99 % Tucker Claus PT SKILLED.PROMOTION WRITER Work Phone: [facility] 10-07-2023 16:31-0400 Systolic blood pressure 122 mm[Hg] Tucker Claus PT SKILLED.PROMOTION WRITER Work Phone: [facility] 08-07-2023 17:29-0400 Body temperature 98.2 [degF] Vicki Praisler-Wood PT SKILLED.PROMOTION WRITER Work Phone: [facility] 08-07-2023 17:29-0400 Body weight 82.8 kg Vicki Praisler-Wood PT SKILLED.PROMOTION WRITER Work Phone: [facility] 08-07-2023 17:29-0400 Diastolic blood pressure 82 mm[Hg] Vicki Praisler-Wood PT SKILLED.PROMOTION WRITER Work Phone: [facility] 08-07-2023 17:29-0400 Heart rate 105 /min Vicki Praisler-Wood PT SKILLED.PROMOTION WRITER Work Phone: [facility] 08-07-2023 17:29-0400 Respiratory rate 20 /min Vicki Praisler-Wood PT SKILLED.PROMOTION WRITER Work Phone: [facility] 08-07-2023 17:29-0400 SaO2% (BldA) [Mass fraction] 98 % Vicki Praisler-Wood PT SKILLED.PROMOTION WRITER Work Phone: [facility] 08-07-2023 17:29-0400 Systolic blood pressure 134 mm[Hg] Vicki Praisler-Wood PT SKILLED.PROMOTION WRITER Work Phone: [facility] 05-05-2023 15:21-0500 Body temperature 99.19 [degF] Krislyn Aberegg PA Work Phone: [facility] 05-05-2023 15:21-0500 Body weight 78.47 kg Krislyn Aberegg PA Work Phone: [facility] 05-05-2023 15:21-0500 Diastolic blood pressure 81 mm[Hg] Krislyn Aberegg PA Work Phone: [facility] 05-05-2023 15:21-0500 Heart rate 107 /min Krislyn Aberegg PA Work Phone: [facility] 05-05-2023 15:21-0500 Respiratory rate 20 /min Krislyn Aberegg PA Work Phone: [facility] [facility] 15:21-0500 SaO2% (BldA) [Mass fraction] 100 % Krislyn Aberegg PA Work Phone: [facility] 05-05-2023 15:21-0500 Systolic blood pressure 134 mm[Hg] Krislyn Aberegg PA Work Phone: [facility] 03-26-2023 17:45-0500 Body temperature 98.8 [degF] Barrie Martinez PT SKILLED.PROMOTION WRITER Work Phone: [facility] 03-26-2023 17:45-0500 Body weight 77.47 kg [facility] SKILLED.PROMOTION WRITER Work Phone: [facility] 03-26-2023 17:45-0500 Diastolic blood pressure 84 mm[Hg] Barrie Pendlebury PT SKILLED.PROMOTION WRITER Work Phone: [facility] 03-26-2023 17:45-0500 Heart rate 108 /min Barrie Pendlebury PT SKILLED.PROMOTION WRITER Work Phone: [facility] 03-26-2023 17:45-0500 Respiratory rate 18 /min [facility] PT SKILLED.PROMOTION WRITER Work Phone: [facility] 03-26-2023 17:45-0500 SaO2% (BldA) [Mass fraction] 96 % [facility] PT SKILLED.PROMOTION WRITER Work Phone: [facility] 03-26-2023 17:45-0500 Systolic blood pressure 138 mm[Hg] [facility] PT SKILLED.PROMOTION WRITER Work Phone: [facility] 01-08-2023 10:26-0400 Body weight 76.57 kg Chrissie De Jesus MD Work Phone: [facility] 01-08-2023 10:26-0400 Diastolic blood pressure 76 mm[Hg] Chrissie De Jesus MD Work Phone: [facility] 01-08-2023 10:26-0400 Systolic blood pressure 120 mm[Hg] Chrissie De Jesus MD Work Phone: [facility] 12-31-2022 13:52-0400 Body weight 78.2 kg Terri [place] PT SKILLED.PROMOTION WRITER Work Phone: [facility] 12-31-2022 13:52-0400 Diastolic blood pressure 76 mm[Hg] Terri [place] PT SKILLED.PROMOTION WRITER Work Phone: [facility] 12-31-2022 13:52-0400 Systolic blood pressure 136 mm[Hg] Terri Kasie PT SKILLED.PROMOTION WRITER Work Phone: [facility] 05-28-2022 08:35-0500 Body mass index (BMI) [Ratio] 25.2 kg/m2 Dr. Odin Abraham Work Phone: [facility] 05-28-2022 08:35-0500 Body temperature 98 [degF] Dr. Odin Abraham Work Phone: [facility] 05-28-2022 08:35-0500 Body weight 79.[address] Odin Abraham Work Phone: [facility] 05-28-2022 08:35-0500 Diastolic blood pressure 76 mm[Hg] Dr. Odin Abraham Work Phone: [facility] 05-28-2022 08:35-0500 Heart rate 76 /min Dr. Odin Abraham Work Phone: [facility] 05-28-2022 08:35-0500 Respiratory rate 18 /min Dr. Odin Abraham Work Phone: [facility] 05-28-2022 08:35-0500 SaO2% (BldA) [Mass fraction] 96 % Dr. Odin Abraham Work Phone: [facility] 05-28-2022 08:35-0500 Systolic blood pressure 122 mm[Hg] Dr. Odin Abraham Work Phone: [facility] Encounters Encounter Date Encounter Type Care Provider Facility Start: 10-26-2024 End: 10-26-2024 Patient encounter procedure Catie Flores RUBEN.PROMOTION WRITER Work Phone: [facility] Comment on above: Redness of skin (Eden reese Dx) Start: 10-26-2024 End: 10-26-2024 ambulatory ODIN ABRAHAM Facility:[facility] Start: 04-18-2024 End: 04-18-2024 ambulatory [facility] Start: 04-14-2024 End: 04-14-2024 ambulatory ODIN ABRAHAM Facility:[facility] Start: 04-14-2024 End: 04-14-2024 Patient encounter procedure Tucekr Devlin APRN.PROMOTION WRITER Work Phone: [facility] Comment on above: Sore throat (Primary Dx) Start: 03-17-2024 End: 03-17-2024 ambulatory Odin Dixon Facility:[facility] Start: 10-07-2023 End: 10-07-2023 Patient encounter procedure Tucker Devlin APRN.PROMOTION WRITER Work Phone: [facility] Comment on above: Sore throat (Primary Dx) Start: 09-27-2023 End: 09-27-2023 ambulatory Odin Dixon Facility:[facility] Start: 09-05-2023 End: 09-05-2023 ambulatory Odin Dixon Facility:[facility] Start: 08-12-2023 End: 08-12-2023 ambulatory [facility] Start: 08-07-2023 End: 08-07-2023 Patient encounter procedure Vicki Michael APRN.PROMOTION WRITER Work Phone: [facility] Comment on above: Sore throat (Primary Dx) Start: 05-05-2023 End: 05-05-2023 Patient encounter procedure Antonette MATUTE Work Phone: [facility] Comment on above: URI, acute (Primary Dx); Bacterial sinusitis Start: 03-27-2023 Telephone encounter Delmis solis PA-C Work Phone: [facility] Comment on above: Results Start: 03-26-2023 End: 03-26-2023 Office outpatient visit 15 minutes Barrie Martinez APRN.PROMOTION WRITER Work Phone: [facility] Comment on above: Viral illness (Prima ry Dx) Start: 01-08-2023 End: 01-08-2023 Patient encounter procedure Chrissie De Jesus MD Work Phone: OB/Gynecology Comment on above: Encounter for IUD in sertion (Primary Dx); Screen for STD (sexually transmitted disease) Start: 12-31-2022 End: 12-31-2022 Patient encounter procedure Terri Ferro APRN.PROMOTION WRITER Work Phone: OB/Gynecology Comment on above: Encounter for survei llance of contraceptive pills (Primary Dx); Encounter for IUD insertion Start: 08-09-2022 End: 08-09-[address] Odin Abraham Work Phone: [facility] Work Phone: Start: 08-09-2022 End: 08-09-[address] Odin Abraham Work Phone: [facility] Start: 05-28-2022 End: 05-28-[address] Odin Abraham Work Phone: [facility] Start: 01-16-2021 End: 01-16-2021 Patient encounter status Cheyenne Bautista APRN PROMOTION WRITER Work Phone: [facility] Start: 01-16-2021 End: 01-16-2021 Subsequent hospital visit by physician Cheyenne Bautista APRN PROMOTION WRITER Work Phone: [facility] Comment on above: Encounter for gyneco logical examination without abnormal finding; Screen for STD (sexually transmitted disease); High risk heterosexual behavior Start: 01-04-2020 End: 01-04-2020 Subsequent hospital visit by physician Virginia Vidal Work Phone: [facility] Start: 09-14-2019 End: 09-14-2019 Subsequent hospital visit by physician Estuardo Anna Work Phone: [facility] Comment on above: Arrived Procedures Date Procedure Procedure Detail Performing Clinician Start: 04-14-2024 STREP A MOLECULAR (POC) Delmis Sparks PA-C Work Phone: Start: 10-07-2023 STREP A MOLECULAR (POC) Tucker Devlin APRN.PROMOTION WRITER Work Phone: Start: 08-07-2023 STREP A MOLECULAR (POC) [facility] Provider Start: 03-26-2023 COVID & INFLUENZA A/ B & RSV NAAT, ROUTINE Barrie Martinez APRN.PROMOTION WRITER Work Phone: Start: 03-26-2023 Iadna respiratry pro be & rev trnscr 3-5 targets Barrie Martinez PT SKILLED.PROMOTION WRITER Work Phone: Start: 03-26-2023 Sars-cov-2 detection by dna/rna Barrie Martinez PT SKILLED.PROMOTION WRITER Work Phone: Start: 01-08-2023 Urine test visual color cmprsn davids Chrissie De Jesus MD Work Phone: Start: 01-16-2021 Adult depression scr eening assessment Cheyennemaritza Bautista PT SKILLED PROMOTION WRITER Work Phone: Start: 01-04-2020 Adult depression scr [...] Author Start: 09-29-2027 HPV TESTING HPV TESTING [facility] Start: 09-29-2027 PAP TESTING PAP TESTING [facility] Start: 09-29-2027 Screening for malign ant neoplasm of cervix [facility] Start: 01-18-2025 Influenza vaccination Influenz a Vaccine (Season Ended) [facility] Start: 01-03-2025 Screening for malign ant neoplasm of cervix PAP SMEAR [facility] Start: 01-19-2024 Covid-19 Vaccine () Covid-19 Vaccine () [facility] Start: 01-19-2024 Influenza vaccination [facility] Start: 09-29-2023 Screening for malign ant neoplasm of cervix Cervical Cancer Screening [facility] Start: 05-20-2023 Behavioral Health Screening Behavioral Health Screening [facility] Start: 05-20-2023 Depression Assessment [facility] Start: 01-18-2023 Covid-19 Vaccine () Covid-19 Vaccine () [facility] Start: 01-18-2023 Influenza vaccination C [facility] Start: 01-03-2023 Human papilloma viru s screening PAP SMEAR [facility] Start: 05-28-2022 Patient referral [facility] Work Phone: Start: 05-20-2022 DEPRESSION ASSESSMENT DEPRESSION ASS ESSMENT [facility] Start: 01-29-2022 End: 01-29-2022 Patient encounter procedure 01/29/2022 Office Visit Obstetrics and Gynecology Cheyenne Bautista APRN [facility] [place], [place] [id number] [employer] Start: 01-17-2022 [address] VISIT [facility] Start: 01-16-2022 Depression screening using PHQ-9 (Patient Health Questionnaire 9) score DEPRESSION SCREENING [facility] Start: 04-19-2021 End: 04-19-2021 Patient encounter procedure 04/19/2021 Office Visit Family Medicine Roxie Howell PA-C [address] [place] [address] [facility] [address] [facility] Start: 02-08-2021 End: 02-08-2021 Telemedicine consultation with patient 02/08/2021 Telemedicine Behavioral Health Richie Monk [place] [address] [place] [address] [employer] Start: 01-30-2021 End: 01-30-2021 Clinical Support 01/30/2021 Clinical Support Obstetrics and Gynecology Cheyenne Bautista APRN PROMOTION WRITER [address] [place] [address] [employer] Start: 01-18-2021 Influenza vaccinatio n given INFLUENZA VACCINE (#1) [facility] Start: 01-09-2021 End: 01-09-2021 Office Visit 01/09/2021 Office Visit Obstetrics and Gynecology Virginia Vidal APRN PROMOTION WRITER [address] [place] [address] [phone] [employer] Start: 01-03-2021 Adult depression screening assessment DEPRESSION SCREENING [facility] Start: 11-25-2020 ANNUAL WELLNESS VISIT ANNUAL WELLNES S VISIT [facility] Start: 01-26-2020 End: 01-26-2020 Office Visit 01/26/2020 Office Visit Family Medicine Roxie Howell PA-C [address] [place] [address] [phone] [facility] [address] [facility] Start: 01-19-2020 Influenza vaccinatio n given INFLUENZA VACCINE (#1) [facility] Start: 01-18-2019 Influenza vaccinatio n given INFLUENZA VACCINE (#1) [facility] Start: 2011 Human papilloma viru s screening PAP SMEAR [facility] Start: 2011 Tetanus, diphtheria and acellular pertussis vaccination TDAP/TD ADULT [facility] Start: 2009 Hepatitis B Vaccine (1 of 3 - 19+ 3-dose series) Hepatitis B Vaccine (1 of 3 - 19+ 3-dose series) [facility] Start: 2009 Urine microalbumin profile [facility] Start: 02-16-2008 ANNUAL WELLNESS VISIT ANNUAL WELLNES S VISIT [facility] Start: 02-16-2008 Depression Screening Depression Scre ening [facility] Start: 02-16-2008 HEPATITIS C SCREENING HEPATITIS C [facility] Start: 02-16-2008 Hepatitis C screening Hepatitis C [facility] Start: 02-16-2008 HIV SCREENING HIV SCREENING [facility] Start: 02-16-2008 HIV screening HIV Screening [facility] Start: 2002 Adult depression screening assessment DEPRESSION SCREENING [facility] Start: 2001 Diphtheria + pertuss is + tetanus vaccine (product) DTAP/TDAP/TD VACCINE (1 - Tdap) [facility] Start: 1990 COVID-19 VACCINE (#1) COVID-19 VACCI NE (#1) [facility] Start: 1990 HEPATITIS B (1 of 3 - 3-dose series) HEPATITIS B (1 of 3 - 3-dose series) [facility] Start: 1990 Hepatitis B Vaccine (1 of 3 - 3-dose series) Hepatitis B Vaccine (1 of 3 - 3-dose series) [facility] Chlamydia trachomatis+Neisseria gonorrhoeae DNA [Presence] in Unspecified specimen by KATELYNN with probe detection GONORRHEA/CHLAMYDIA NAAT Lab Routine Screen for STD (sexually transmitted disease) 01/08/2023 10:58 AM T [facility] Work Phone: Chlamydia trachomatis+Neisseria gonorrhoeae rRNA [Presence] in Cervix by Probe GC & CHLAMYDIA AMPLIFIED PROBE Microbiology Routine 09/14/2019 10:44 AM EDT [facility] End: 01-17-2021 Chlamydia trachomatis+Neisseria gonorrhoeae rRNA [Presence] in Cervix by Probe [facility] Comment on above: 1 Occurrences starti ng 01/17/2021 until 01/17/2021 COVID & INFLUENZA A/ B & RSV NAAT, ROUTINE COVID & INFLUENZA A/B & RSV NAAT, ROUTINE Microbiology Routine URI, acute 05/05/2023 3:31 PM EST [facility] Work Phone: End: 01-17-2021 Human papilloma virus DNA [Presence] in Unspecified specimen by Probe with amplification [facility] Work Phone: Comment on above: 1 Occurrences starti ng 01/17/2021 until 01/17/2021 Insertion intrauteri ne device iud INSERT INTRAUTERINE DEVICE Procedures Routine Encounter for IUD insertion Ordered: 12/31/2022 [facility] Work Phone: Comment on above: Ordered: 12/31/2022 Insertion intrauteri ne device iud INSERT INTRAUTERINE DEVICE Procedures Routine Encounter for IUD insertion Ordered: 01/08/2023 [facility] Work Phone: Comment on above: Ordered: 01/08/2023 End: 01-17-2021 Microscopic observation [Identifier] in Cervix by Cyto stain [facility] Comment on above: 1 Occurrences starti ng 01/17/2021 until 01/17/2021 Patient referral [facility] Work Phone: Tobacco use cessatio n education [facility] End: 01-17-2021 Trichomonas Amplified Probe [facility] Comment on above: 1 Occurrences starti ng 01/17/2021 until 01/17/2021 TRICHOMONAS VAGINALI S NAAT TRICHOMONAS VAGINALIS NAAT Lab Routine Screen for STD (sexually transmitted disease) 01/08/2023 10:58 AM EDT [facility] Work Phone: [facility] Payers Date Payer Category Payer Self-pay [id number] 2023 Unknown [id number] 2022 Medicaid [id number] 1990 Unknown [id number] 1990 Unknown [id number] Medicaid [facility] xxxxxxxxxxxx Effective for all dates [phone] [address] [place] [address] Medicaid xxxxxxxxxxxx [id number] Medicaid [id number] Unknown [id number] Unknown [id number] Unknown [id number] Social History Date Type Detail Facility Start: 07-04-2017 End: 09-28-2022 Tobacco smoking status NHIS Never smoker [facility] Work Phone: Start: 07-04-2017 Alcohol intake Current drinke r of alcohol (finding) [facility] Start: 1990 Sex Assigned At Not on file [facility] Start: 01-04-2020 End: 11-18-2019 Tobacco smoking status NHIS Current every day smoker [facility] End: 11-18-2019 History of tobacco use Cigarette Smoker [facility] Start: 01-04-2020 End: 09-28-2022 Tobacco use and exposure Never used [facility] Start: 01-04-2020 End: 10-26-2024 Alcohol intake Ex-drinker (finding) [facility] Exposure to SARS-CoV -2 (event) Not sure [facility] Start: 01-11-2021 History SDOH Social Connections Membership 2 [facility] Start: 01-11-2021 History SDOH Financial 5 [facility] Start: 01-11-2021 History SDOH Food Worry 1 [facility] Start: 06-18-2022 Tobacco smoking stat us MAIS Unknown if ever smoked [facility] Start: 1990 Sex Assigned At Female [facility] Start: 09-28-2022 End: 12-31-2022 History of Social function [facility] Start: 09-28-2022 End: 12-31-2022 Tobacco use panel [facility] National Score (1-100), lower number is lower risk 50 [facility] Start: 09-28-2022 Education 13 [facility] Start: 09-28-2022 Tobacco Comment Pt vapes [facility] Start: 09-28-2022 Alcohol Comment sober 15 mos [facility] Start: 05-05-2023 Gender identity Identifies as female gender (finding) [facility] NEGATED: Highlighted rowStart: BARRETTF History of tobacco use Passive smoker [facility] Work Phone: Clinical Notes 12-31-2022 to 10-26-2024 [...] ER if occurs documented in this encounter [facility] 10-26-2024 Note HNO ID: [id number] Author: CATIE FLORES APRN.CNP Service: ? Author Type: Nurse Practitioner Type: Progress Notes Filed: 10/26/2024 19:31 Note Text: Subjective The history is provided by the patient. No academic advisement director was used. MARY LOU Arreguin is a [...] have confirmed and edited as necessary, the [facility] Review of Systems Constitutional: Negative for [...] detail warranting prompt ER evaluation. Catie Flores APRN.[facility] 10-26-2024 History of Presen t illness Narrative Images from the original note were not included. Subjective The history is provided by the patient. No academic advisement director was used. HPI Christa Arreguin is a [...] have confirmed and edited as necessary, the [facility] Review of Systems Constitutional: Negative for [...] Catie Flores APRN.LON documented in this encounter [facility] 04-14-2024 Note HNO ID: [id number] Author: TUCKER DEVLIN APRN.PROMOTION WRITER Service: ? Author Type: Nurse Practitioner Type: [...] PROPIONATE 50 MCG/ACTUATION NASAL SPRAY,SUSPENSION Tucker Devlin APRN.[facility] 04-14-2024 History of Presen t illness Narrative [...] PROPIONATE 50 MCG/ACTUATION NASAL SPRAY,SUSPENSION Tucker Devlin APRN.PROMOTION WRITER documented in this encounter [facility] 10-07-2023 History of Presen t illness Narrative [...] Tucker Devlin APRN.CNP documented in this encounter [facility] 08-07-2023 Instructions Vicki Michael APRN.CNP - 08/07/2023 [...] mouth and then touches another person directly (lvps-vy-rmbt contact) or indirectly (aaee-ot-awzxfg, such as doorknob, telephone, toys). It is [...] every four months on our web site ([email or web address]). Information below was obtained from Up to date Last literature review version 19.2: September 2010 This topic last updated: January 04, 2010 documented in this encounter [facility] 08-07-2023 History of Presen t illness Narrative [...] Discussed expected course of illness Vicki Michael APRN.PROMOTION WRITER documented in this encounter [facility] 05-05-2023 History of Presen t illness Narrative This note was created using InviBox[employer]. Subjective Christa Arreguin is a 33 year [...] evaluation. JUJU Jaeger documented in this encounter [facility] 03-27-2023 Miscellaneous Notes Patient notified.Laura Floyd LPN Please let patient know that their COVID-19, influenza, and RSV testing is negative. documented in this encounter [facility] 03-26-2023 Instructions Barrie Martinez APRN.PROMOTION WRITER - 03/26/2023 6:00 PM EST How to [...] concerning to you. documented in this encounter [facility] 03-26-2023 History of Presen t illness Narrative [...] of care. This note was generated using The FeedRoom software. It may contain errors in wording, punctuation, or spelling. 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 Christa presents today for IUD insertion for contraception. Patient's last menstrual period was 12/23/2022. GC/chlamydia: Collected today test: negative Side effects including irregular bleeding were discussed with the patient. The patient understands that it should be removed in 8 years or sooner if the patient desires a . IUD source: office provided IUD lot #: [id number] Exp date: 03/2025 UNIVERSAL PROTOCOL / SAFETY [...] De Jesus MD documented in this encounter [facility] 01-08-2023 Instructions Jackie Mahmood MA - 01/08/2023 [...] contact the office. 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 History Comments: Sexual Activity: Yes; Male Contraception: [...] 3 - Low documented in this encounter [facility] Evaluation note Diagnosis Encounter for gynecological examination without abnormal finding Routine gynecological examination Screen for STD (sexually transmitted disease) Screening examination for venereal disease High risk heterosexual behavior Problems related to high-risk sexual behavior [facility] Diagnosis Onset Date Resolution Status Intravenous drug abuse in remission acute 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 noneactive Establishing care with new doctor, encounter for noneactive Screening for cervical cancer noneactive Anxiety and depression nonea ctive Excessive sweating noneactiv e Deviated septum noneactive [facility] Work Phone: Evaluation note* Diagnosis Encounter for surveillance of contraceptive pills- Primary Surveillance of previously prescribed contraceptive pill Encounter for IUD insertion Encounter for insertion of intrauterine contraceptive device documented in this encounter [facility] note* Diagnosis Encounter for IUD insertion- Primary Encounter for insertion of intrauterine contraceptive device Screen for STD (sexually transmitted disease) Screening examination for venereal disease documented in this encounter [facility] note* Diagnosis Viral illness- Primary Unspecified viral infection, in conditions classified elsewhere and of unspecified site documented in this encounter [facility] note* Diagnosis URI, acute- Primary Acute upper respiratory infections of unspecified site Bacterial sinusitis Unspecified sinusitis (chronic) documented in this encounter [facility] note* Diagnosis Sore throat- Primary Acute pharyngitis documented in this encounter [facility] note* Diagnosis Sore throat- Primary Acute pharyngitis documented in this encounter [facility] note* Diagnosis Sore throat- Primary Acute pharyngitis documented in this encounter [facility] note* Diagnosis Redness of skin- Primary Unspecified erythematous condition documented in this encounter [facility] for referral (narrative)* Outpatient Procedure (Routine) - Pending Review Specialty Diagnoses / Procedures Referred By Alex torrez Referred To Contact [facility] Diagnoses Encounter for IUD insertion Procedures INSERT INTRAUTERINE DEVICE LEVONORGESTREL IU 52MG 5 YR INSERT INTRAUTERINE DEVICE Terri Ferro APRN.CNP [address] [place] [address] [facility] [address] [place] [address] Referral ID Status Reason Start Date Expiration Date Visits Requested Visits Authorized [id number] Pending Review Auto-Generat ed Referral 12/31/2022 12/31/2023 [facility] Outpatient Procedure (Routine) - Pending Review Specialty Diagnoses / Procedures Referred By Alex torrez Referred To Contact [facility] Diagnoses Encounter for IUD insertion Procedures INSERT INTRAUTERINE DEVICE LEVONORGESTREL IU 52MG 5 YR INSERT INTRAUTERINE DEVICE Chrissie De Jesus MD [address] [place] [address] [facility] [address] [place] [address] Referral ID Status Reason Start Date Expiration Date Visits Requested Visits Authorized [id number] Pending Review Auto-Generat ed Referral 01/08/2023 01/08/2024 1 1 [facility] Advance Directives No Advanced Directives Records FoundDocuments on File Type Date Recorded 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 Establishing care [...] section and content) DATE CREATED AUTHOR 12/10/2019 [facility] ([place]) DATE CREATED AUTHOR AUTHOR'S ORGANIZ ATION 03/10/2020 [facility] DATE CREATED AUTHOR AUTHOR'S ORGANIZ ATION 03/19/2024 [facility] DATE CREATED AUTHOR AUTHOR'S ORGANIZ ATION 04/19/2024 [facility] [facility] DATE CREATED AUTHOR AUTHOR'S ORGANIZ ATION 10/27/2024 [facility] Care Teams (unrecognized sec tion and content) Sausage Cooker Relationship Specialty Start Date End Date Kanski, Roxie, PA-C [address] [place] [address] PCP - General Family Medicine 11/25/19 Team Status: Active Member Role Status Dates Dr. Odin Abraham MD Primary Care Provider Active Team Status: Inactive Member Role Status Dates Dr. Odin Abraham MD Primary Care Pro vider, Attending Provider, Referring Provider Active Sausage Cooker Relationship Specialty Start Date End Date Odin Abraham MD [address] [place], [place] [id number] PCP - General Internal Medicine 04/14/24 Sausage Cooker Relationship Specialty Start Date End Date Odin Abraham MD [address] [place] [address] PCP - General Internal Medicine 04/14/24 [...] or prosecute any alcohol or drug abuse patient.[facility] Hospital[facility] the event this information is protected by the Federal Confidentiality of Alcohol and Drug Abuse Patient Records regulations: The Federal rules restrict any use of the information to criminally investigate or prosecute any alcohol or drug abuse patient.[facility] Hospital[facility] the event this information is protected by the Federal Confidentiality of Alcohol and Drug Abuse Patient Records regulations: The Federal rules restrict any use of the information to criminally investigate or prosecute any alcohol or drug abuse patient.[facility] the event this information is protected by the Federal Confidentiality of Alcohol and Drug Abuse Patient Records regulations: The Federal rules restrict any use of the information to criminally investigate or prosecute any alcohol or drug abuse patient.[facility] HospitalIn the event this information is protected by the Federal Confidentiality of Alcohol and Drug Abuse Patient Records regulations: The Federal rules restrict any use of the information to criminally investigate or prosecute any alcohol or drug abuse patient.[facility] HospitalIn the event this information is protected by the Federal Confidentiality of Alcohol and Drug Abuse Patient Records regulations: The Federal rules restrict any use of the information to criminally investigate or prosecute any alcohol or drug abuse patient.[facility] HospitalIn the event this information is protected by the Federal Confidentiality of Alcohol and Drug Abuse Patient Records regulations: The Federal rules restrict any use of the information to criminally investigate or prosecute any alcohol or drug abuse patient.[facility] HospitalIn the event this information is protected by the Federal Confidentiality of Alcohol and Drug Abuse Patient Records regulations: The Federal rules restrict any use of the information to criminally investigate or prosecute any alcohol or drug abuse patient.[facility] Hospital[facility] the event this information is protected by the Federal Confidentiality of Alcohol and Drug Abuse Patient Records regulations: The Federal rules restrict any use of the information to criminally investigate or prosecute any alcohol or drug abuse patient.[facility] Reason for Visit (unrecogniz ed section and [...] INTRAUTERINE DEVICE REMOVE INTRAUTERINE DEVICE Terri Ferro APRN.PROMOTION WRITER [address] [place] [address] [facility] [address] [place] [address] Referral ID Status Reason Start Date Expiration Date Visits Requested Visits Authorized [id number] Authorized Auto-Generat ed Referral 01/01/2023 05/19/2023 2 [...] BE BASED ON THE PRIMARY CLINICAL RECORDS. [facility] [employer] [facility]. provides no warranty or guarantee of the accuracy or completeness of information in this document.
[2024-12-08 00:24] VITALS: BP 122/76; PULSE 80; RESP 18; TEMP 36.6; O2SAT 100
[2024-12-08 00:30] VITALS: BMI 21.2
[2024-12-08 04:43] VITALS: BP 115/67; PULSE 83; RESP 16; TEMP 36.4; O2SAT 99
[2024-12-08 08:07] VITALS: BP 114/71; PULSE 80; RESP 18; TEMP 36.9; O2SAT 99
[2024-12-08] MEDS: buPROPion (SR) 100 MG TABLET.SA 200 MG PO ×2 (10:03→19:51)
--- NOTE | 2024-12-08 13:01 | ADDICTION ---
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 PT A+Ox4 and participated actively. All assessments completed and placed in PT's chart. PT plans to f/u with [facility] for inpatient treatment services once discharged. [facility] will transport to treatment.
--- NOTE | 2024-12-08 13:09 | PCM.PN.HOSP ---
Subjective Subjective Resting comfortably, no issues overnight. COWS score of 4, she has not triggered the need for medications at the moment Objective Data Objective Data Vital Signs: Vital Signs Temp Pulse Resp BP Pulse Ox O2 Del Method 98.4 F 80 18 114/71 99 Room Air 12/08/24 08:07 12/08/24 08:07 12/08/24 08:07 12/08/24 08:07 12/08/24 08:07 12/08/24 08:08 Oxygen Delivery Method Room Air Weight: 148 lb 2.41 oz Body Mass Index (BMI) 21.2 Lab / Micro Data 12/07/24 19:50 12/07/24 19:50 Labs: Laboratory Results - last 24 hr 12/07/24 19:50: WBC 4.5, RBC 3.99 L, Hgb 12.0, Hct 34.9 L, MCV 87.5, MCH 30.1, MCHC 34.4, RDW Std Deviation 41.5, RDW Coeff of Jose 13.1, Plt Count 216, MPV 9.4, Immature Gran % (Auto) 0.200, Neut % (Auto) 54.5, Lymph % (Auto) 38.0, [place] % (Auto) 6.9, Eos % (Auto) 0.0, Baso % (Auto) 0.4, Absolute Neuts (auto) 2.4, Absolute Lymphs (auto) 1.70, Nucleated RBC % 0, Differential Comment SCANNED, Platelet Estimate ADEQUATE, Sodium 139, Potassium 3.9, Chloride 104, Carbon Dioxide 23.1, Anion Gap 12, BUN 12, Creatinine 0.72, Estim Creat Clear Calc 117.70, Est GFR (MDRD) Non-Af 112, BUN/Creatinine Ratio 17.0, Glucose 112 H, Calcium 9.1, Serum , Qual NEGATIVE, Ethyl Alcohol < 10.1 12/07/24 21:30: Urine Opiates Screen NEGATIVE, U Buprenorphine Qual NEGATIVE, Ur Oxycodone Screen NEGATIVE, Urine Methadone Screen NEGATIVE, Urine Fentanyl Screen PRESUMPTIVE POSITIVE, Ur Barbiturates Screen NEGATIVE, Ur Phencyclidine Scrn NEGATIVE, Ur Amphetamines Screen PRESUMPTIVE POSITIVE, U Benzodiazepines Scrn NEGATIVE, Urine Cocaine Screen NEGATIVE, U Cannabinoids Screen NEGATIVE Physical Exam Narrative General: Alert, Oriented x3, Cooperative, No apparent distress HEENT: Atraumatic, PERRLA, EOMI, Normocephalic Oral: Moist Mucosa Neck: Supple, No JVD Lungs: Clear to auscultation, Normal air movement, No rhonchi, No wheeze, No rales Cardiovascular: Regular rate, Regular Rhythm, Normal S1, Normal S2, No murmurs Abdomen: Soft, Non Tender, Non-Distended, No Hepato-splenomegaly Extremities: No edema, Capillary Refill Less than 3 Seconds Skin: No rashes, No breakdown Musculoskeletal: No Tenderness to Palpation of Joints or Extremities Neurological: No focal neurological deficits, Motor Exam 5/5 strength throughout, Sensory exam intact to light touch and pain Psych/Mental Status: Normal Affect, Appropriate Assessment & Plan Assessment/Plan (1) Depression: (2) Anxiety: (3) Methamphetamine abuse: (4) Opiate abuse, continuous: PLAN: Plan 1. Requesting detox from opiates and methamphetamines/anxiety/depression ? Continue with the opiate withdrawal protocol, currently she is not requiring any medications for stabilization ? She has discontinued all of her home medications including Wellbutrin, Remeron, Seroquel ? Would recommend follow-up with psych on discharge ? 180 met with her and is requesting inpatient placement on discharge DVT: Ambulation Charges/Coding Visit Charges Inpatient E&M: 80075 Subs Hosp L2
[2024-12-08 14:12] VITALS: BP 116/69; PULSE 92; RESP 18; TEMP 37.1; O2SAT 100
[2024-12-08] MEDS: Glycerin/Hypromellose/PEG400 15 ml Bottle 2 DRP EACH EYE ×2 (15:36→19:51)
[2024-12-08] MEDS: hydrOXYzine PAM 25 MG Capsule 50 MG PO (19:51)
[2024-12-08 20:00] VITALS: BP 116/70; PULSE 92; RESP 18; TEMP 37; O2SAT 100
[2024-12-08 22:05] VITALS: BP 96/48; PULSE 95; RESP 16; TEMP 36.6; O2SAT 98
[2024-12-09 04:50] VITALS: BP 104/52; PULSE 85; RESP 16; TEMP 36.8; O2SAT 95
[2024-12-09] MEDS: hydrOXYzine PAM 25 MG Capsule 50 MG PO ×3 (04:56→19:33)
[2024-12-09 08:01] VITALS: BP 91/44; PULSE 93; RESP 16; TEMP 36.7; O2SAT 99
[2024-12-09] MEDS: buPROPion (SR) 100 MG TABLET.SA 200 MG PO ×2 (08:07→19:33)
--- NOTE | 2024-12-09 09:00 | PCM.PN.HOSP ---
Subjective Subjective Diaphoretic and shaky today CIWA scores of 9 so she started her Subutex taper Objective Data Objective Data Vital Signs: Vital Signs Temp Pulse Resp BP Pulse Ox O2 Del Method 98.1 F 93 16 91/44 L 99 Room Air 12/09/24 08:01 12/09/24 08:01 12/09/24 08:01 12/09/24 08:01 12/09/24 08:01 12/09/24 08:01 Oxygen Delivery Method Room Air Weight: 148 lb 2.41 oz Body Mass Index (BMI) 21.2 Intake & Output: Intake and Output for Last 24 Hours 12/08/24 12/09/24 12/10/24 03:59 03:59 03:59 Intake Total 200 / 200 200 / 200 Balance 200 / 200 200 / 200 Lab / Micro Data 12/07/24 19:50 12/07/24 19:50 Physical Exam Narrative General: Alert, Oriented x3, Cooperative, No apparent distress, diaphoretic HEENT: Atraumatic, PERRLA, EOMI, Normocephalic Oral: Moist Mucosa Neck: Supple, No JVD Lungs: Clear to auscultation, Normal air movement, No rhonchi, No wheeze, No rales Cardiovascular: Regular rate, Regular Rhythm, Normal S1, Normal S2, No murmurs Abdomen: Soft, Non Tender, Non-Distended, No Hepato-splenomegaly Extremities: No edema, Capillary Refill Less than 3 Seconds Skin: No rashes, No breakdown Musculoskeletal: No Tenderness to Palpation of Joints or Extremities Neurological: No focal neurological deficits, Motor Exam 5/5 strength throughout, Sensory exam intact to light touch and pain Psych/Mental Status: Anxious and restless Assessment & Plan Assessment/Plan (1) Depression: (2) Anxiety: (3) Methamphetamine abuse: (4) Opiate abuse, continuous: PLAN: Plan 1. Requesting detox from opiates and methamphetamines/anxiety/depression ? Continue with the opiate withdrawal protocol, started her buprenorphine this morning ? She has discontinued all of her home medications including Wellbutrin, Remeron, Seroquel ? Would recommend follow-up with psych on discharge ? 180 met with her and is requesting inpatient placement on discharge DVT: Ambulation Charges/Coding Visit Charges Inpatient E&M: 54878 Subs Hosp L2
[2024-12-09 11:23] VITALS: BP 102/52; PULSE 109; RESP 16; TEMP 36.9; O2SAT 100
[2024-12-09 15:34] VITALS: BP 104/63; PULSE 102; RESP 16; TEMP 36.8; O2SAT 100
[2024-12-09 19:33] VITALS: BP 114/71; PULSE 91; RESP 16; TEMP 36.7; O2SAT 100
[2024-12-10 02:00] VITALS: BP 102/53; PULSE 91; RESP 16; TEMP 36.6; O2SAT 99
[2024-12-10] MEDS: buPROPion (SR) 100 MG TABLET.SA 200 MG PO ×2 (07:41→20:21)
[2024-12-10 08:21] VITALS: BP 91/48; PULSE 92; RESP 16; TEMP 36.4; O2SAT 100
--- NOTE | 2024-12-10 08:36 | PCM.PN.HOSP ---
Subjective Subjective Cina score of 10, will continue with the buprenorphine taper Objective Data Objective Data Vital Signs: Vital Signs Temp Pulse Resp BP Pulse Ox O2 Del Method 97.5 F L 92 16 91/48 L 100 Room Air 12/10/24 08:21 12/10/24 08:21 12/10/24 08:21 12/10/24 08:21 12/10/24 08:21 12/10/24 08:21 Oxygen Delivery Method Room Air Weight: 148 lb 2.41 oz Body Mass Index (BMI) 21.2 Intake & Output: Intake and Output for Last 24 Hours 12/09/24 12/10/24 12/11/24 03:59 03:59 03:59 Intake Total 200 / 200 1140 / 1140 120 / 120 Balance 200 / 200 1140 / 1140 120 / 120 Lab / Micro Data 12/07/24 19:50 12/07/24 19:50 Physical Exam Narrative General: Alert, Oriented x3, Cooperative, No apparent distress, diaphoretic HEENT: Atraumatic, PERRLA, EOMI, Normocephalic Oral: Moist Mucosa Neck: Supple, No JVD Lungs: Clear to auscultation, Normal air movement, No rhonchi, No wheeze, No rales Cardiovascular: Regular rate, Regular Rhythm, Normal S1, Normal S2, No murmurs Abdomen: Soft, Non Tender, Non-Distended, No Hepato-splenomegaly Extremities: No edema, Capillary Refill Less than 3 Seconds Skin: No rashes, No breakdown Musculoskeletal: No Tenderness to Palpation of Joints or Extremities Neurological: No focal neurological deficits, Motor Exam 5/5 strength throughout, Sensory exam intact to light touch and pain Psych/Mental Status: Anxious and restless Assessment & Plan Assessment/Plan (1) Depression: (2) Anxiety: (3) Methamphetamine abuse: (4) Opiate abuse, continuous: PLAN: Plan 1. Requesting detox from opiates and methamphetamines/anxiety/depression ? Continue with the opiate withdrawal protocol, started her buprenorphine this morning ? She has discontinued all of her home medications including Wellbutrin, Remeron, Seroquel ? Would recommend follow-up with psych on discharge ? 180 met with her and is requesting inpatient placement on discharge DVT: Ambulation Charges/Coding Visit Charges Inpatient E&M: 79954 Subs Hosp L2
[2024-12-10] MEDS: hydrOXYzine PAM 25 MG Capsule 50 MG PO (11:21)
[2024-12-10 11:27] VITALS: BP 94/55; PULSE 93; RESP 16; TEMP 36.6; O2SAT 100
[2024-12-10 15:40] VITALS: BP 103/60; PULSE 94; RESP 16; TEMP 36.6; O2SAT 100
[2024-12-10 20:07] VITALS: BP 99/66; PULSE 95; RESP 18; TEMP 36.6; O2SAT 100
[2024-12-10 20:10] VITALS: O2SAT 100
[2024-12-11 00:06] VITALS: BP 102/62; PULSE 91; RESP 16; TEMP 36.6; O2SAT 99
[2024-12-11] MEDS: hydrOXYzine PAM 25 MG Capsule 50 MG PO (00:16)
[2024-12-11 05:04] VITALS: BP 98/64; PULSE 84; RESP 17; TEMP 36.6; O2SAT 100
[2024-12-11 05:21] VITALS: BP 105/72; PULSE 84; RESP 17; TEMP 36.6; O2SAT 100
--- NOTE | 2024-12-11 08:21 | DCINST_ITS ---
Discharge Instructions DC O2, CPAP, BIPAP needs Home O2 Discharge instructions: No Dressing / Incision Discharge Activity: Return to Normal Activity Dressing / Incision Call your doctor if you observe: Fever of 101 or Higher, Shortness of breath, Dizziness, Fainting spells, Swelling in the ankles, Chest pain and Increased palpitations (irregular heartbeat) Follow Up Care Test Results: Test results from this visit will be discussed in further detail at your follow- up appointment, if applicable. Discharge Plan Admission Admit Date/Time: 12/07/24 23:23 Attending Provider: Ezio Mclean Primary Care Provider: Hoda Abraham Consulting Providers: Yrn Yepez Discharge Orders/Prescriptions Prescriptions: Continued Mirena 21 mcg/24 hours (8 yrs) 52 mg intrauterine device 1 device intrauterine ONCE Rx Instructions: as a single dose fexofenadine [Carol Allergy] 180 mg tablet 180 mg PO DAILY PRN fluticasone propionate [Flonase Allergy Relief] 50 mcg/actuation spray,suspension 1 spray intranasal DAILY PRN Rx Instructions: administer into each nostril Drysol Dab-O-Matic 20 % solution 1 applic topical 2XW Qty: 60 1RF quetiapine 100 mg tablet 100 mg PO QHS Qty: 30 0RF Patient Comments: has not been taking recently mirtazapine [Remeron] 15 mg tablet 15 mg PO DAILY Qty: 90 0RF Patient Comments: has not been taking recently bupropion HCl 200 mg tablet sustained-release 12 hr 200 mg PO BID Qty: 60 1RF Patient Comments: has not been taking recently Referrals / Follow Up: Hoda Abraham MD [Primary Care Provider] - Within 1 Month Disposition Disposition (needs filled in before D/C Order can be placed): Inpatient Rehab Unit/Facility
[2024-12-11 09:30] VITALS: BP 117/69; PULSE 94; RESP 16; TEMP 36.8; O2SAT 96
[2024-12-11] MEDS: buPROPion (SR) 100 MG TABLET.SA 200 MG PO (09:40)
--- NOTE | 2024-12-11 09:49 | PHA.DC.MR.R ---
Pharmacy [place] Med Reconciliation Pharmacy Service has performed discharge medication reconciliation for this patient. The patient's discharge medication list was reviewed for discrepancies and discrepancies were resolved. Medications at Discharge Home Medications levonorgestrel (Mirena) 1 device intrauterine ONCE 02/26/23 fexofenadine 180 mg tablet (Carol Allergy) 180 mg PO DAILY PRN 09/05/23 fluticasone propionate 50 mcg/actuation nasal spray,suspension (Flonase Allergy Relief) 1 spray intranasal DAILY PRN 09/05/23 aluminum chloride 20 % topical solution (Drysol Dab-O-Matic) 1 applic topical 2XW #60 mL 03/17/24 quetiapine 100 mg tablet 100 mg PO QHS #30 tabs 05/18/24 mirtazapine 15 mg tablet (Remeron) 15 mg PO DAILY #90 tabs 05/26/24 bupropion HCl 200 mg tablet,12 hr sustained-release 200 mg PO BID #60 ea 06/02/24
--- NOTE | 2024-12-11 09:57 | PCM.DC.SUM ---
Providers Date of Admission: 12/07/24 Primary Care Physician: Dr. Hoda Abraham MD Reason For Visit: OPIATE WITHDRAWAL, METHAMPHETAMINE ABUSE Diagnosis Discharge Diagnosis (1) Depression: Status: Acute Code(s): F32.A - Depression, unspecified (2) Anxiety: Status: Acute Code(s): F41.9 - Anxiety disorder, unspecified (3) Methamphetamine abuse: Status: Acute Code(s): F15.10 - Other stimulant abuse, uncomplicated (4) Opiate abuse, continuous: Status: Acute Code(s): F11.10 - Opioid abuse, uncomplicated Medications at Discharge Home Medications levonorgestrel (Mirena) 1 device intrauterine ONCE 02/26/23 fexofenadine 180 mg tablet (Carol Allergy) 180 mg PO DAILY PRN 09/05/23 fluticasone propionate 50 mcg/actuation nasal spray,suspension (Flonase Allergy Relief) 1 spray intranasal DAILY PRN 09/05/23 aluminum chloride 20 % topical solution (Drysol Dab-O-Matic) 1 applic topical 2XW #60 mL 03/17/24 quetiapine 100 mg tablet 100 mg PO QHS #30 tabs 05/18/24 mirtazapine 15 mg tablet (Remeron) 15 mg PO DAILY #90 tabs 05/26/24 bupropion HCl 200 mg tablet,12 hr sustained-release 200 mg PO BID #60 ea 06/02/24 Hospital Course Operations None Procedures None Summary of Care Provided Minutes Spent on Discharge: 31 Hospital Course: Per HPI: HECTOR ARREGUIN, is a 34 F who presents to the emergency room with chief complaint of requesting withdrawal support from opiates and methamphetamine. Patient has a long-term drug addiction history but states after 22 she had been sober for nearly 3 years but had lost her sober housing situation and relapsed. Patient admits to some nausea and vomiting and irritability. Patient states she last used meth and fentanyl earlier today around noon. She is requesting support for withdrawal and detoxification. Patient denies any other chronic medical history and denies chest pain or shortness of breath or fevers or chills at present time Hospital Course: 1. Opiate withdrawal and methamphetamine use/anxiety/depression?34-year-old female presented to the hospital requesting detox from opiates. She did have a delay withdrawal but did ultimately need to start buprenorphine. She is feeling much better today and 180 was able to get her into inpatient rehab which she would like to go. I discussed with her the possibility of discharge today and she expressed understanding of the risks and benefits of going to inpatient rehab and would like to go today. She is supposed to be on Wellbutrin, Remeron, and Seroquel however she has not been taking her Remeron or Seroquel recently. Would benefit from mental health evaluation and reinitiation of medications. Physical Exam Narrative General: Alert, Oriented x3, Cooperative, No apparent distress, diaphoretic HEENT: Atraumatic, PERRLA, EOMI, Normocephalic Oral: Moist Mucosa Neck: Supple, No JVD Lungs: Clear to auscultation, Normal air movement, No rhonchi, No wheeze, No rales Cardiovascular: Regular rate, Regular Rhythm, Normal S1, Normal S2, No murmurs Abdomen: Soft, Non Tender, Non-Distended, No Hepato-splenomegaly Extremities: No edema, Capillary Refill Less than 3 Seconds Skin: No rashes, No breakdown Musculoskeletal: No Tenderness to Palpation of Joints or Extremities Neurological: No focal neurological deficits, Motor Exam 5/5 strength throughout, Sensory exam intact to light touch and pain Psych/Mental Status: Normal affect, appropriate Weight / BMI Weight Weight: 148 lb 2.41 oz Body Mass Index (BMI) 21.2 ABG / Lab / Microbiology Data 12/07/24 19:50 12/07/24 19:50 D/C Instructions Call your doctor if you observe: Fever of 101 or Higher, Shortness of breath, Dizziness, Fainting spells, Swelling in the ankles, Chest pain and Increased palpitations (irregular heartbeat) DC O2, CPAP, BIPAP Needs Home O2 Discharge instructions: No Meaningful Use Info Meaningful Use Meaningful Use Diagnoses (Choose all that apply): None applicable Discharge Plan Admission Admit Date/Time: 12/07/24 23:23 Attending Provider: Ezio Mclean Primary Care Provider: Hoda Abraham Consulting Providers: Yrn Yepez Discharge Orders/Prescriptions Prescriptions: Continued Mirena 21 mcg/24 hours (8 yrs) 52 mg intrauterine device 1 device intrauterine ONCE Rx Instructions: as a single dose fexofenadine [Carol Allergy] 180 mg tablet 180 mg PO DAILY PRN fluticasone propionate [Flonase Allergy Relief] 50 mcg/actuation spray,suspension 1 spray intranasal DAILY PRN Rx Instructions: administer into each nostril Drysol Dab-O-Matic 20 % solution 1 applic topical 2XW Qty: 60 1RF quetiapine 100 mg tablet 100 mg PO QHS Qty: 30 0RF Patient Comments: has not been taking recently mirtazapine [Remeron] 15 mg tablet 15 mg PO DAILY Qty: 90 0RF Patient Comments: has not been taking recently bupropion HCl 200 mg tablet sustained-release 12 hr 200 mg PO BID Qty: 60 1RF Patient Comments: has not been taking recently Referrals / Follow Up: Hoda Abraham MD [Primary Care Provider] - Within 1 Month Disposition Disposition (needs filled in before D/C Order can be placed): Inpatient Rehab Unit/Facility Charges/Coding Visit Charges Inpatient E&M: 37202 Disch Hosp >30min
== END 2024-12-11 12:34 | disposition home or self-care (01) | DRG 897 ==
LOC: ED 21:39 → MS3 23:33
PROVIDERS: Admitting Provider Family Medicine; Emergency Provider Surgery; PCP Internal Medicine; Visit Provider Family Medicine
DX: F11.23 Opioid dependence with withdrawal (principal); F15.10 Other stimulant abuse, uncomplicated; F32.A Depression, unspecified; F41.9 Anxiety disorder, unspecified; F17.290 Nicotine dependence, other tobacco product, uncomplicated
CPT/HCPCS: 36415; 80048; 80307; 82077; 84703; 85025; 99283; 99406

== ENCOUNTER → 2024-12-31 | Outpatient (CLI) | payer MEDICAID, SELFPAY ==
[2024-12-31 17:29] LABS: HIV Nonreactive (Nonreactive); Syphilis Antibodies Nonreactive (Nonreactive)
[2025-01-02 06:08] LABS: HEPATITIS B SURFACE AG Negative (Negative); Hep C Antibodies Non Reactive (Non Reactive)
[2025-01-05 11:08] LABS: HPV APTIMA, High Risk Negative (Negative)
== END | disposition home or self-care (01) ==
PROVIDERS: PCP Internal Medicine; Visit Provider Nurse Practitioner Family
DX: Z11.3 Encounter for screening for infections with a predominantly sexual mode of transmission (principal); Z01.419 Encounter for gynecological examination (general) (routine) without abnormal findings
CPT/HCPCS: 36415; 80074; 86695; 86696; 86703; 86780; 87624; 88175; G0145

== ENCOUNTER 2025-02-04 18:36 | Inpatient (IN) | payer MEDICAID, SELFPAY ==
[2025-02-04 18:38] VITALS: BP 142/90; PULSE 104; RESP 19; TEMP 36.7; O2SAT 100; BMI 20.6
--- NOTE | 2025-02-04 18:53 | ED.RN ---
Per Dr Truong no sitter needed.
--- OUTSIDE RECORDS SUMMARY | 2025-02-04 19:07 | XMS RPT_ITS | CCD ---
Author Organization [facility] Care Team Providers Care Geriatric Assistant Name Role Phone Pcp, None Primary Care Provider UnavailRoxie Hurley Primary Care Provider [phone] Roxie Byrne PA-C Primary Care Provider Dr. Odin Abraham Primary Care Provider Dr. Odin Abraham Attending Provider [phone] Dr. Odin Abraham Referring Provider Unavailable Primary Care Provider Unavailabl e Unavailable Primary Care Provider UnavailOdin Wilder MD Primary Care Provider [phone] ROXIE BYRNE Primary Care Unavailable NICOLE TRINIDAD Attending Unavailable ROXIE BYRNE Primary Care Unavailable NIR NAVARRO Attending Unavailable ODIN ABRAHAM Primary Care Unavailable CATIE FLORES Attending Unavailable Dr. Odin Abraham MD Primary Care Provider [phone] Dr. Jaden Yepez DO Emergency Provider Marleni CHAUHAN, Dr. Pool Admit Provider Dr. Yrn Yepez MD Attending Provider Dr. Yrn Yepez MD Other Provider Dr. Odin Abraham MD Primary Care Provider Dr. Jaden Yepez DO Emergency Provider Marleni CHAUHAN, Dr. Pool Admit Provider Dr. Yrn Yepez MD Attending Provider Caridad CHAUHAN, Dr. Ezio Farah Attending Provider Caridad CHAUHAN, Dr. Ezio Farah Other Provider Christiano BALANCE RECESSER-CNicole Attending Provider Marleni, Yrn Admitting Unavailable Ezio Mclean Attending Unavailable Marleni, Yrn Consulting Unavailable [place], Odin Primary Care Unavailable Nicole Alvarado Attending Unavailable Leigh, Odin Primary Care Unavailable Ezio Mclean Attending Unavailable Marleni, Yrn Consulting Unavailable Marleni, Yrn Admitting Unavailable Leigh, Odin Primary Care Unavailable Ezio Mclean Consulting Unavailable Marleni, Yrn Admitting Unavailable Marleni, Yrn Consulting Unavailable Marleni, Yrn Attending Unavailable Leigh, Odin Primary Care Unavailable Leigh, Odin Primary Care Unavailable [place], Odin Attending Unavailable Leigh, Odin Referring Unavailable Medications Current Medications Medication Drug Class(es) Dates Sig (Normalized) Sig (Original) [id number] 200 actuat albuterol 0.09 mg/actuat metered dose [...] of breath. 1 Inhaler 4 07/04/2017 Active amoxicillin 875 mg / clavulanate [...] for 5 days. 12 hr buPROPion hydrochloride 200 mg extended release oral tablet (20 sources) Aminoketone Start: 03-17-2024 End: 06-02-2024 take 1 tablet by mouth twice daily Bupropion Hcl 200 mg tablet sustained-release 12 hr Active 200 mg PO TWICE A DAY 60 June 02, 2024 4:52pm Start: 02-26-2023 End: 03-17-2024 take 1 tablet by mouth twice daily Bupropion Hcl (Wellbutrin Sr) 150 mg tablet sustained-release 12 hr Discontinued 150 mg PO TWICE A DAY 180 November 06, 2023 3:50pm March 17, 2024 2:02pm Start: 06-30-2021 End: 02-26-2023 take 1 tablet by mouth once daily Bupropion Hcl (Wellbutrin Sr) 150 mg tablet sustained-release 12 hr Discontinued 150 mg PO DAILY 90 November 12, 2022 12:26pm February 26, 2023 2:03pm buPROPion (WELLB UTRIN) 100 mg tablet Take 100 mg by mouth. Active take 1 tablet by [facility] twice daily buPROPion (WELLBUTRIN XL) 150 MG 24 hr tablet Take 150 mg by mouth two times daily. 0 Active Comment on above: Take 100 mg by mouth . cephalexin 500 mg oral capsule (1 source) Cephalosporin Antibacterial Start: 10-27-19 End: 11-03-19 25 take 1 capsule by mouth four times [...] once daily in the morning. 0 Active fexofenadine hydrochloride 180 mg oral tablet (6 sources) Histamine-1 Receptor Antagonist Start: 02-28-20 End: 09-05-19 24 take 1 tablet by mouth once daily as needed Fexofenadine (Carol Allergy) 180 mg tablet Active 180 mg PO DAILY as needed September 05, 2023 3:04pm fluticasone propionate 0.05 mg/actuat metered dose nasal spray (9 sources) Corticosteroid Start: 04-14-20 take 2 spray(s) by mouth once daily fluticasone (FLONASE) 50 mcg/actuation nasal spray Indications: Sore throat Use 2 Sprays in each nostril once daily. Rinse mouth after use. 1 Each 04/14/2024 Active Start: 08-29-2022 End: 09-05-2023 take 50 ug nasal route once daily as needed Fluticasone Propionate (Flonase Allergy Relief) 50 mcg/actuation spray,suspension Active 1 NMA INTRANASAL DAILY as needed September 05, 2023 3:04pm administer into each nostril Start: 09-12-2020 Fluticasone pr opionate (FLONASE) 50 MCG/ACT nasal spray Indications: Subacute frontal sinusitis 2 sprays by Each Nare route daily. 16 g 1 09/12/2020 Active levonorgestrel 0.216234 mg/hr intrauterine system (12 sources) Progestin, Progestin-containing Intrauterine Device Start: 01-08-2023 End: 01-06-2031 Levonorgestrel (Mirena) 21 mcg/24 hours (8 yrs) 52 mg intrauterine device Active 1 NMA INTRA-UTER ONCE February 26, 2023 12:00am as a single dose Comment on above: 1 Each by INTRAUTERI [...] 1 tablet by mouth daily 0 Active predniSONE 20 mg oral tablet (5 sources) Start: 04-14-2024 End: 04-19-2024 take 2 tablets by mouth once daily [...] days. 10 tablet 0 10/07/2023 10/12/2023 Active Start: 08-29-2022 End: 02-26-2023 take 2 tablets by mouth once daily Prednisone 20 mg tablet Discontinued 40 mg PO DAILY 10 0 August 29, 2022 12:00am February 26, 2023 1:25pm sertraline 25 mg oral tablet (1 source) Serotonin Reuptake Inhibitor Start: 07-04-2017 take 1 tablet by mouth once daily sertraline (ZOLOFT) 25 MG tablet Indications: Anxiety and depression Take 1 tablet by mouth daily. 30 tablet 0 07/04/2017 Active 24 hr venlafaxine 37.5 mg extended release oral capsule (1 source) Serotonin and Norepinephrine Reuptake Inhibitor Start: 01-11-2021 take 1 capsule by mouth once daily venlafaxine (EFFEXOR-XR) 37.5 MG 24 hr capsule Indications: Prolonged posttraumatic stress disorder , Anxiety and depression Take 1 capsule by mouth daily. 30 capsule 1 01/11/2021 Active Completed/Discontinued Medications Medication Drug Class(es) Dates Sig (Normalized) Sig (Original) aluminum chloride 200 mg/ml topical solution (16 sources) Start: 05-28-2022 End: 03-17-2024 Aluminum Chloride (Drysol Dab-O-Matic) 20 % solution Discontinued 1 NMA TOPICAL TWICE A WEEK 60 1 July 29, 2023 5:19pm March 17, 2024 2:02pm Start: 08-24-2020 aluminum chlor oliver (DRYSOL) 20 % external solution Indications: Excessive sweating Use daily at night 35 mL 5 08/24/2020 Active Start: 07-04-2017 aluminum chlor oliver (DRYSOL) 20 % external solution Indications: Excessive sweating Use daily at night 35 mL 5 07/04/2017 Active Desogestrel / Ethinyl Estradiol (2 sources) Progestin, Estrogen Start: 09-28-2022 End: 01-08-2023 take 1 tablet by mouth once daily, then take 0.15 tablet by mouth once Desogestrel-Ethinyl Estradiol (APRI) 0.15-0.03 mg per tablet Take 1 tablet by mouth once daily for 28 days. 28 tablet 3 09/28/2022 01/08/2023 Discontinued Start: 09-28-2022 take 1 tablet by blanquita th once daily, then take 0.15 tablet by mouth once Desogestrel-Ethinyl Estradiol (APRI) 0.15-0.03 mg per tablet Take 1 tablet by mouth once daily for 28 days. 28 tablet 3 09/28/2022 Active Comment on above: Take 1 tablet by blanquita th once daily for 28 days. hydrOXYzine hydrochloride 50 mg oral tablet (7 sources) Antihistamine Start: 06-30-19 End: 05-28-19 take 1 tablet by mouth at bedtime Hydroxyzine Hcl 50 mg Tablet Discontinued 50 mg PO AT BEDTIME June 30, 2021 1:00am May 28, 2022 9:25am Start: 01-11-2021 take 1 tablet by blanquita th twice daily as needed for pain hydrOXYzine (ATARAX) 50 MG tablet Indications: Prolonged posttraumatic stress disorder , Anxiety and depression Take 1 tablet by mouth 2 times daily as needed for Anxiety (or sinus pain). 60 tablet 1 01/11/2021 Active Start: 07-04-2017 take 1 capsule by mo ut three times daily as needed for anxiety hydrOXYzine (VISTARIL) 25 MG capsule Indications: Anxiety and depression Take 1 capsule by mouth 3 times daily as needed for Anxiety. 30 capsule 0 07/04/2017 Active loperamide hydrochloride 2 mg oral capsule (4 sources) Opioid Agonist Start: 07-04-2021 End: 05-28-2022 take 1 capsule by mouth every four hours as needed Loperamide 2 mg Capsule Discontinued 2 mg PO EVERY 4 HOURS NEEDED as needed for LOOSE STOOLS 0 0 July 04, 2021 1:00am May 28, 2022 9:54am mirtazapine 15 mg oral tablet (20 sources) Start: 06-30-2021 End: 05-26-2024 take 1 tablet by mouth once daily Mirtazapine (Remeron) 15 mg tablet Discontinued 15 mg PO DAILY November 18, 2023 4:41pm May 26, 2024 11:00am Start: 01-11-2021 take 1 tablet by blanquita once daily mirtazapine (REMERON) 45 MG tablet Indications: Prolonged posttraumatic stress disorder , Anxiety and depression Take 1 tablet by mouth nightly. 30 tablet 1 01/11/2021 Active take 1 tablet by blanquita th once daily mirtazapine (REMERON) 30 MG tablet Take 30 mg by mouth nightly. 0 Active Comment on above: Take 15 mg by mouth. naltrexone 380 mg injection (13 sources) Opioid Antagonist Start: End: inject 380 mg by intramuscular injection every month Naltrexone Microspheres (Vivitrol) 380 mg suspension,extended rel recon Discontinued 380 mg IM EVERY MONTH May 28, 2022 1:00am September 05, 2023 3:05pm Comment on above: Inject intramuscular ly. QUEtiapine 100 mg oral tablet (20 sources) Atypical Antipsychotic Start: End: take 1 tablet by mouth at bedtime Quetiapine (Seroquel) 100 mg tablet Discontinued 100 mg PO AT BEDTIME 90 November 18, 2023 4:41pm May 18, 2024 1:19pm Start: 01-11-2021 take 150 mg by mouth once daily in the evening QUEtiapine Fumarate 150 MG TB24 Indications: Prolonged posttraumatic stress disorder , Anxiety and depression Take 150 mg by mouth every evening. 30 each 1 01/11/2021 Active Comment on above: Take 100 mg by mouth . rOPINIRole 0.5 mg oral tablet (6 sources) Nonergot Dopamine Agonist Start: 06-30-2021 End: 05-28-2022 take 1 tablet by mouth at bedtime Ropinirole 0.5 mg Tablet Discontinued 0.5 mg PO AT BEDTIME June 30, 2021 1:00am May 28, 2022 9:25am Start: 01-11-2021 take 1 tablet by blanquita th once daily rOPINIRole (REQUIP) 0.5 MG tablet Indications: Restless leg syndrome Take 1 tablet by mouth nightly. 30 tablet 5 01/11/2021 Active take 1 tablet by blanquita th three times daily at bedtime ROPINIRole (REQUIP) 0.25 MG tablet Take 0.25 mg by mouth 3 times daily. Take 2 tablets by mouth at bedtime. 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] 05-28-2022 Chronic Contraceptive and procreative management (6 sources) Contraception status; Translations: [Encounter for initial prescription of contraceptives, unspecified] Onset: 07-04-2017 07-04-2017 Episodic Headache; including migraine (1 source) Headache Onset: 04-18-2024 Episodic Immunizations and screening for infectious disease (3 sources) Patient encounter status; Translations: [Encounter for screening for infections with a predominantly sexual mode of transmission] Onset: 01-06-2025 Episodic Mood disorders (7 sources) Depressive disorder; Translations: [Depression] 05-24-2022 Chronic Mood disorders (1 source) Mood disorders; Translations: [Depression, unspecified] Onset: 12-11-2024 Other aftercare (1 source) Other group home (current) drug therapy; Translations: [Long-term (current) use of other medications] 05-28-2022 Episodic Other inflammatory condition of skin (1 [...] hyperhidrosis] 05-28-2022 Episodic Other upper respiratory disease (4 sources) Seasonal allergy; Translations: [Other seasonal allergic rhinitis] [...] behavior; Translations: [High risk heterosexual behavior] Episodic Residual codes; unclassified (3 sources) Chill; Translations: [Chills (without fever)] 02-26-2023 Episodic Substance-related disorders (20 sources) Benzodiazepine misuse; Translations: [Sedative, hypnotic or anxiolytic abuse, uncomplicated] Onset: 12-11-2024 07-12-2021 Chronic Substance-related disorders (4 sources) Opioid withdrawal; Translations: [Opioid use, unspecified with withdrawal] 07-12-2021 Episodic Viral infection (1 source) Viral disease; Translations: [Viral infection, unspecified] 03-26-2023 Episodic Past or Other Problems Problem Classification Problem Date Documented Date Episodic/Chronic Other aftercare (9 sources) Long-term current use of antipsychotic medication; Translations: [Other group home (current) drug therapy] Onset: 09-28-2022 09-28-2022 Episodic Other skin disorders (3 sources) Excessive sweating; Translations: [Generalized hyperhidrosis] Onset: 07-04-2017 07-04-2017 Episodic Results Test Name Value Interpretation Reference Range Facility PAP IG HPV APTIMA 16/18,45on 01-05-2025 ADEQ Comment Normal . [facility] Comment on above: Order Comment: Speci men Comment: [id number] Specimen Comment: Source.............Cervix Specimen Comment: LMP / Prev Treat...[id number] Specimen Comment: No. of containers..01 ThinPrep Vial Result Comment: Sati sfactory for evaluation. Endocervical and/or squamous metaplastic cells (endocervical component) are present. Performed By: #### L 7400.0280, L3410.9992 #### [facility] [address] [place], [place], [id number] COMM . Normal . [facility] Comment on above: Order Comment: Speci men Comment: [id number] Specimen Comment: Source.............Cervix Specimen Comment: LMP / Prev Treat...[id number] Specimen Comment: No. of containers..01 ThinPrep Vial Performed By: #### L 7400.0280, L3410.9992 #### [facility] [address] [place], [place], [address] COMMENT Comment Normal . [facility] Comment on above: Order Comment: Speci men Comment: [id number] Specimen Comment: Source.............Cervix Specimen Comment: LMP / Prev Treat...[id number] Specimen Comment: No. of containers..01 ThinPrep Vial Result Comment: This liquid based ThinPrep(R) pap test was screened with the use of an image guided system. Performed By: #### L 7400.0280, L3410.9992 #### [facility] [address] [place], [address] DIAG Comment Normal . [facility] Comment on above: Order Comment: Speci men Comment: [id number] Specimen Comment: Source.............Cervix Specimen Comment: LMP / Prev Treat...[id number] Specimen Comment: No. of containers..01 ThinPrep Vial Result Comment: NEGA TIVE FOR INTRAEPITHELIAL LESION OR MALIGNANCY. TRICHOMONAS VAGINALIS IS PRESENT. Performed By: #### L 7400.0280, L3410.9992 #### [facility] [address] [place], [place], [address] HPV APTIMA, HR Negative Normal Negative [facility] Comment on above: Order Comment: Speci men Comment: [id number] Specimen Comment: Source.............Cervix Specimen Comment: LMP / Prev Treat...[id number] Specimen Comment: No. of containers..01 ThinPrep Vial Result Comment: This nucleic acid amplification test detects fourteen high- risk HPV types (16,18,31,33,35,39,45,51,52,56,58,59,66,68) without differentiation. Performed By: #### L 7400.0280, L3410.9992 #### [facility] [address] [place], [place], [address] HPV Millicent Rfx Comment Normal . [facility] Comment on above: Order Comment: Speci men Comment: [id number] Specimen Comment: Source.............Cervix Specimen Comment: LMP / Prev Treat...[id number] Specimen Comment: No. of containers..01 ThinPrep Vial Result Comment: Crit eria not met, HPV Genotype not performed. Performed at: [address] [id number] Union Representative: Luz Marina Sherman MD, Phone: [phone] Performed at: =G - [facility] [address] [id number] Union Representative: Luz Marina Sherman MD, Phone: [phone] Performed By: #### L 7400.0280, L3410.9992 #### [facility] [address] [place], [place], [address] PAPSMR Comment Normal . [facility] Comment on above: Order Comment: Speci men Comment: [id number] Specimen Comment: Source.............Cervix Specimen Comment: LMP / Prev Treat...[id number] Specimen Comment: No. of containers..01 ThinPrep Vial Result Comment: The Pap smear is a screening test designed to aid in the detection of premalignant and malignant conditions of the uterine cervix. It is not a diagnostic procedure and should not be used as the sole means of detecting cervical cancer. Both false-positive and false-negative reports do occur. Performed By: #### L 7400.0280, L3410.9992 #### [facility] [address] [place], [place], [address] PERFORM Comment Normal . [facility] Comment on above: Order Comment: Speci men Comment: [id number] Specimen Comment: Source.............Cervix Specimen Comment: LMP / Prev Treat...[id number] Specimen Comment: No. of containers..01 ThinPrep Vial Result Comment: Hailey Saxena, Tariff Supervisor (ASCP) Performed By: #### L 7400.0280, L3410.9992 #### [facility] [address] [place], [place], [address] L3410.9992on 01-04-2025 [facility]. COMMENT Normal . [facility] Comment on above: Order Comment: EDUARDOCARMELA DAVIS RMT [id number] NUSWAB VG+ Result Comment: Test Ordered: [id number] NuSwab Vaginitis Plus (VG+) Test(s) 17991018- Atopobium vaginae; 17991019- BVAB 2; 094206- Megasphaera 1 was developed and its performance characteristics determined by [facility]. It has not been cleared or approved by the Food and Drug Administration. Test(s) 655524-Wnaooap albicans, KATELYNN; 148645- Na glabrata, KATELYNN was developed and its performance characteristics determined by [facility]. It has not been cleared or approved by the Food and Drug Administration. Atopobium vaginae High - 2 [A ] Score =G Reference Range: . BVAB 2 Low - 0 Score =G Reference Range: . Megasphaera 1 Low - 0 Score =G Reference Range: . Calculate total score by adding the 3 individual bacterial vaginosis (BV) marker scores together. Total score is interpreted as follows: Total score 0-1: Indicates the absence of BV. Total score 2: Indeterminate for BV. Additional clinical data should be evaluated to establish a diagnosis. Total score 3-6: Indicates the presence of BV. Na albicans, KATELYNN Negative =G Reference Range: Negative Na glabrata, KATELYNN Negative =G Reference Range: Negative Trich vag by KATELYNN Positive [A ] =G Reference Range: Negative Chlamydia trachomatis, KATELYNN Negative =G Reference Range: Negative Neisseria gonorrhoeae, KATELYNN Negative =G Reference Range: Negative Performed at: =[address] [id number] Union Representative: Luz Marina Sherman MD, Phone: [phone] Performed at: [address] [id number] Union Representative: Steve Salas PhD, Phone: [phone] Performed By: #### L 7400.0280, L3416.9992 #### [facility] [address] [place], [place], [address] HSV 1 AND 2 IgGon 01-02-2025 HSV 1 IgG Reactive Abnormal Non Reactive [facility] Comment on above: Result Comment: Pl ease note reference interval change HSV-1 IgG testing performed using the [employer] HSV-1 IgG assay. Performed By: #### L 3400.1610, L509.8002, L3890.6006, L3000.5600 ####[facility] [address] [place], [place], [address] HSV 2 IgG Non-Reactive Normal Non Reactive [facility] Comment on above: Result Comment: Pl ease note reference interval change Current guidelines and recommendations do not recommend routine screening for HSV-2 in asymptomatic individuals, including those that are . The detection of HSV-2 IgG antibodies in a single sample indicates previous exposure to HSV-2 but does not give information as to the site of HSV infection or the timing of exposure. The predictive value of positive and negative results depends on the population's prevalence and the pretest likelihood of HSV-2. HSV-2 IgG testing performed using the [employer] HSV-2 IgG assay. Performed at: [address] [id number] Union Representative: Steve Salas PhD, Phone: [phone] Performed By: #### L 3400.1610, L509.8002, L3890.6006, L3000.0375 ####[facility] [address] [place], [place], [address] Hepatitis Panel Acuteon 08-1 COMMENT Comment Normal . [facility] Comment on above: Result Comment: Not infected with HCV unless early or acute infection is suspected (which may be delayed in an immunocompromised individual), or other evidence exists to indicate HCV infection. Performed By: #### L 3400.1610, L509.8002, L3890.6006, L3000.0375 ####[facility] [address] [place], [place], [address] HEP B CORE,IgM Negative Normal Negative [facility] Comment on above: Performed By: #### L 3400.1610, L509.8002, L3890.6006, L3000.0375 ####[facility] [address] [place], [place], [address] HEP B SURF AG Negative Normal Negative [facility] Comment on above: Performed By: #### L 3400.1610, L509.8002, L3890.6006, L3000.0375 ####[facility] [address] [place], [address] HEP C VIRUS AB Non-Reactive Normal Non Reactive [facility] Comment on above: Performed By: #### L 3400.1610, L509.8002, L3890.6006, L3000.0375 ####[facility] [address] [place], [place], [address] HEPATITIS A-IgM Negative Normal Negative [facility] Comment on above: Result Comment: A ne gative anti-HAV IgM result suggests no recent or current HAV infection. Performed By: #### L 3400.1610, L509.8002, L3890.6006, L3000.0375 ####[facility] [address] [place], [place], [address] Cervical or vaginal specimen microscopic examination by liquid based cytology (reportOrdered By: Nicole Alvarado on 12-31-2024 Cytology report Cyto stain.thin prep Doc (Cvx/Vag) Comment . [facility] Comment on above: Criteria not met, HP V Genotype not performed.Performed at: - [address] [id number] Director: Luz Marina Sherman MD, Phone: [phone] at: =[facility] [id number] Director: Luz Marina Sherman MD, Phone: [phone] Cervical or vagninal specime n microscopic examination by cytology stain (reported asOrdered By: Nicole Alvarado on 12-31-2024 Cytology report Cyto stain Doc (Cvx/Vag) Comment . [facility] Comment on above: The Pap smear is a s creening test designed to aid in thedetection of premalignant and malignant conditions of theuterine cervix. It is not a diagnostic procedure andshould not be used as the sole means of detecting cervicalcancer. Both false-positive and false-negative reports dooccur. Detection in cervical specim en of any of human papilloma virus (HPV) 16, 18, 31, 33,Ordered By: Nicole Alvarado on 12-31-2024 HPV 16+18+31+33+35+39+45+51 +52+56+58+59+66+68 DNA Probe+sig amp Ql (Cvx) Negative Negative [facility] Comment on above: This nucleic acid am plification test detects fourteen high-risk HPV types (16,18,31,33,35,39,45,51,52,56,58,59,66,68)without differentiation. HIVon 12-31-2024 HIV Non-Reactive Normal Nonreactive [facility] Comment on above: Result Comment: Non- Reactive Reactive Repeatedly reactive samples must be confirmed according to CDC recommended confirmatory algorithms. The subresults for either HIVAG or AHIV can be used as an aid in the selection of the confirmation algorithm for reactive samples. Send out specimens with Reactive results to [facility] for confirmation. Order the HIV antibody detection and differentiation: lc#[id number] Performed By: #### L 3400.1610, L509.8002, L3890.6006, L3000.0375 ####[facility] [id number] [place], [address] Laboratory - CytologyOrdered By: Nicole Alvarado on 12-31-2024 Tariff Supervisor Cyto stain Nom (Cvx/Vag) [ID] Comment . [facility] Comment on above: Marcy Saxena Cytol ogist (ASCP) Laboratory - Miscellaneous t estsOrdered By: Nicole Alvarado on 12-31-2024 Service comment (Unsp spec) [Interp] . . [facility] No Panel InformationOrdered By: Nicole Alvarado on 12-31-2024 Hepatitis C Antibody Comment Comment . [facility] Comment on above: Not infected with HC V unless early or acute infection issuspected (which may be delayed in an immunocompromisedindividual), or other evidence exists to indicate HCVinfection. HIV (1&2) Antibody Non-Reactive Nonreactive [facility] Comment on above: Non-ReactiveReactive Repeatedly reactive samples must be confirmed according to CDC recommended confirmatory algorithms. The subresults for either HIVAG or AHIV can be used as an aid in the selection of the confirmation algorithm for reactive samples.Send out specimens with Reactive results to [facility] for confirmation.Order the HIV antibody detection and differentiation: #[id number] Pap Smear Specimen Adequacy Comment . [facility] Comment on above: Satisfactory for brandon luation. Endocervical and/or squamous metaplasticcells (endocervical component) are present. Serum herpes simplex virus 2 antibody assay by immunoassay (units/volume)Ordered By: Nicole Alvarado on 12-31-2024 HSV 2 Ab IA Qn (S) Non-Reactive Non Reactive [facility] Comment on above: Please note refere nce interval changeCurrent guidelines and recommendations do not recommendroutine screening for HSV-2 in asymptomatic individuals,including those that are . The detection of HSV-2IgG antibodies in a single sample indicates previousexposure to HSV-2 but does not give information as to thesite of HSV infection or the timing of exposure. Thepredictive value of positive and negative results dependson the population's prevalence and the pretest likelihoodof HSV-2. HSV-2 IgG testing performed using the RocheEpitirosys HSV-2 IgG assay.Performed at: [place] [id number] Director: Steve Salas PhD, Phone: [phone] Serum or plasma hepatitis B virus surface antigen detection by immunoassayOrdered By: Nicole Alvarado on 12-31-2024 HBV surface Ag IA Ql Negative Negative [facility] Syphilis Antibodieson 2024 Syphilis Abs Non-Reactive Normal Nonreactive [facility] Comment on above: Performed By: #### L 3400.1610, L509.8002, L3890.6006, L3000.0375 ####[facility] [id number] [place], [address] Discharge Instructionon 11-18 Discharge Instruction [facility] Medical Records Department [address] [place] [address] Instructions for Home/Discharge Instructions 12/11/24 0821 MR#: [id number] Acct: [id number] Name: CHRISTA COLBERT Rep #: [id number] : 1990 34 From: Ezio Mclean MD PCP: Dr. Odin Abraham MD Status:ADM IN Discharge Instructions DC O2, CPAP, BIPAP needs Home O2 Discharge instructions: No Dressing / Incision Discharge Activity: Return to Normal Activity Dressing / Incision Call your doctor if you observe: Fever of 101 or Higher, Shortness of breath, Dizziness, Fainting spells, Swelling in the ankles, Chest pain and Increased palpitations (irregular heartbeat) Follow Up Care Test Results: Test results from this visit will be discussed in further detail at your follow-up appointment, if applicable. Discharge Plan Admission Admit Date/Time: 12/07/24 23:23 Attending Provider: Ezio Mclean Primary Care Provider: Odin Abraham Consulting Providers: Yrn Yepez Discharge Orders/Prescriptions Prescriptions: Continued Mirena 21 mcg/24 hours (8 yrs) 52 mg intrauterine device 1 device intrauterine ONCE Rx Instructions: as a single dose fexofenadine [Carol Allergy] 180 mg tablet 180 mg PO DAILY PRN fluticasone propionate [Flonase Allergy Relief] 50 mcg/actuation spray,suspension 1 spray intranasal DAILY PRN Rx Instructions: administer into each nostril Drysol Dab-O-Matic 20 % solution 1 applic topical 2XW Qty: 60 1RF quetiapine 100 mg tablet 100 mg PO QHS Qty: 30 0RF Patient Comments: has not been taking recently mirtazapine [Remeron] 15 mg tablet 15 mg PO DAILY Qty: 90 0RF Patient Comments: has not been taking recently bupropion HCl 200 mg tablet sustained-release 12 hr 200 mg PO BID Qty: 60 1RF Patient Comments: has not been taking recently Referrals / Follow Up: Odin Abraham MD [Primary Care Provider] - Within 1 Month Disposition Disposition (needs filled in before D/C Order can be placed): Inpatient Rehab Unit/Facility 12/11/24 0824 Ezio Mclean MD CC: Dr. Odin Abraham MD; Dr. Yrn Yepez MD Signed Normal [facility] Absolute lymphocyte countOrd ered By: ED PROVIDER on 12-07-2024 Lymphocytes Auto (Unsp spec) [#/Vol] 1.70 10*3/uL 0.83-4.51 [facility] Absolute neutrophil countOrd ered By: ED PROVIDER on 12-07-2024 Neutrophils (Bld) [#/Vol] 2.4 10*3/uL 2.0-7.7 [facility] Alcohol, Blood (Medical)-Ser umon 12-07-2024 SERUM ETOH < 10.1 Normal <=10.0 [facility] Comment on above: Result Comment: This test is for medical purposes only. The legal definition of intoxication varies according to local law. Performed By: #### L 501.9100, L700.6800, L500.2500, L100.0100, L505.5000 #### [facility] Laboratory [address] [place], [place], [id number] Amphetamine detection with 1 000 ng/mL as cutoffOrdered By: Jaden Yepez on 12-07-2024 Amphetamines Screen method >1000 ng/mL Ql (U) Positive <1000 ng/mL [facility] Comment on above: If confirmation test ing is needed, a separate order will be required to send out testing to the reference laboratory. Amphetamines Screen method >1000 ng/mL Ql (U) Negative < 200 ng/mL [facility] Anion gap in Serum or Plasma Ordered By: ED PROVIDER on 12-07-2024 Anion gap [Moles/Vol] 12 mmol/L 5-15 [facility] Automated lymphocyte count a s percentage of total leukocytesOrdered By: ED PROVIDER on 12-07-2024 Lymphocytes/100 WBC Auto (Unsp spec) 38.0 % -41 [facility] BUN/creatinine ratioOrdered By: ED PROVIDER on 12-07-2024 Urea nitrogen/Creatinine [Mass ratio] 17.0 mg/mg 10- [facility] Basic Metabolic Profile (BMP )on 12-07-2024 BUN/CRE 17.0 RATIO Normal - [facility] Comment on above: Performed By: #### L 501.9100, L700.6800, L500.2500, L100.0100, L505.5000 #### [facility] Laboratory [address] [place], [place], [id number] Calcium [Mass/Vol] 9.1 mg/dL Normal 7.6-11.0 [facility] Comment on above: Performed By: #### L 501.9100, L700.6800, L500.2500, L100.0100, L505.5000 #### [facility] [address] [place], [address] Chloride [Moles/Vol] 104 mmol/L Normal 98-108 [facility] Comment on above: Performed By: #### L 501.9100, L700.6800, L500.2500, L100.0100, L505.5000 #### [facility] [address] [place], [address] CO2 [Moles/Vol] 23.1 mmol/L Normal 21.0-32.0 [facility] Comment on above: Performed By: #### L 501.9100, L700.6800, L500.2500, L100.0100, L505.5000 #### [facility] [address] [place], [address] Creatinine [Mass/Vol] 0.72 mg/dL Normal 0.70-1.20 [facility] Comment on above: Performed By: #### L 501.9100, L700.6800, L500.2500, L100.0100, L505.5000 #### [facility] [address] [place], [address] ECRCL 117.70 ml/min Normal 50-250 [facility] Comment on above: Performed By: #### L 501.9100, L700.6800, L500.2500, L100.0100, L505.5000 #### [facility] [address] [place], [address] GAP 12 Normal 5-15 [facility] Comment on above: Performed By: #### L 501.9100, L700.6800, L500.2500, L100.0100, L505.5000 #### [facility] [address] [place], [address] GFR/1.73 sq M.predicted among non-blacks MDRD (S/P/Bld) [Vol rate/Area] 112 mL/min/{1.73_m2} Normal >60 [facility] Comment on above: Result Comment: mL/m in/1.73m2 CKD-EPI Creatinine Equation (2020) Performed By: #### L 501.9100, L700.6800, L500.2500, L100.0100, L505.5000 #### [facility] [address] [place], [address] Glucose [Mass/Vol] 112 mg/dL High 70-99 [facility] Comment on above: Performed By: #### L 501.9100, L700.6800, L500.2500, L100.0100, L505.5000 #### [facility] [address] [place], [address] Potassium [Moles/Vol] 3.9 mmol/L Normal 3.3-5.1 [facility] Comment on above: Performed By: #### L 501.9100, L700.6800, L500.2500, L100.0100, L505.5000 #### [facility] [address] [place], [address] Sodium [Moles/Vol] 139 mmol/L Normal 133-145 [facility] Comment on above: Performed By: #### L 501.9100, L700.6800, L500.2500, L100.0100, L505.5000 #### [facility] [address] [place], [address] Urea nitrogen [Mass/Vol] 12 mg/dL Normal 4-19 [facility] Comment on above: Performed By: #### L 501.9100, L700.6800, L500.2500, L100.0100, L505.5000 #### [facility] [address] [place], [address] Basophil percentageOrdered B y: ED PROVIDER on 12-07-2024 Basophils/100 WBC (Bld) 0.4 % 0-1 [facility] Blood manual differential co mment interpretation (narrative result)Ordered By: Jaden Yepez on 12-07-2024 Manual differential comment Abdifatah (Bld) [Interp] SCANNED [facility] CBC W/Diff, Automatedon 11-18 PLT EST ADEQUATE Normal ADEQ [facility] Comment on above: Performed By: #### L 501.9100, L700.6800, L500.2500, L100.0100, L505.5000 #### [facility] [address] [place], [address] SMEAR COMMENT SCANNED Normal [facility] Comment on above: Performed By: #### L 501.9100, L700.6800, L500.2500, L100.0100, L505.5000 #### [facility] [address] [place], [address] Carbon dioxide, total [Moles /volume] in Central venous bloodOrdered By: ED PROVIDER on 12-07-2024 CO2 [Moles/Vol] 23.1 mmol/L 21.0-32.0 [facility] Chloride assayOrdered By: ED PROVIDER on 12-07-2024 Chloride [Moles/Vol] 104 mmol/L 98-108 [facility] Emergency Department Summary on 12-07-2024 Emergency Department Summary [facility] Medical Records Department [address] [place] [address] Emergency Department Summary 12/07/24 MR#: [id number] Acct: [id number] Name: CHRISTA COLBERT Rep #: [id number] : 1990 34 From: Jaden Yepez DO PCP: Dr. Odin Abraham MD Status:REG ER Location: ED HPI History of Present Illness Chief Complaint: Substance Abuse Narrative Narrative: Chief complaint and HPI: Requesting polysubstance detox. 34-year-old female with past medical history of fentanyl and methamphetamine abuse presents requesting polysubstance detox. Last used this morning. Currently denies any withdrawal symptoms. Denies any nausea or vomiting. Review of systems: See HPI Medications: As listed on the chart Allergies: As listed on the chart PFSH: Per chart Vital signs: As listed on the chart. Reviewed. Physical exam: Gen: A O x3, NAD Head: Normocephalic, atraumatic Eyes: No sclera icterus, conjunctiva clear ENT: Moist mucous membranes Neck: Trachea midline, No JVD CV: RRR, no murmurs, no peripheral edema Resp: Lungs CTA BL, no w/r/c GI: Abd soft, non-distended, non-tender, no r/r/g Musc: Full ROM, no deformity Skin: Warm, dry Neuro: Alert, oriented, grossly intact, sensation intact Psych: Cooperative, appropriate mood and affect PFSH PFSH Medical History HPV in female Back problem Substance abuse Smoker Irregular heart beat PTSD (post-traumatic stress disorder) Depression Anxiety Asthma Home Medications ???Medication ???Instructions ???Recorded ???Last Taken ???Type levonorgestrel (Mirena) 1 device intrauterine ONCE 3 Unknown History fexofenadine 180 mg tablet 180 mg PO DAILY PRN 09/05/23 Unkno wn History (Carol Allergy) fluticasone propionate 50 1 spray intranasal DAILY PRN 09/04 Unknown History mcg/actuation nasal spray,suspension (Flonase Allergy Relief) aluminum chloride 20 % topical 1 applic topical 2XW #60 mL Unknown Rx solution (Drysol Dab-O-Matic) quetiapine 100 mg tablet 100 mg PO QHS #30 tabs 05/18/24 Un known Rx mirtazapine 15 mg tablet (Remeron) 15 mg PO DAILY #90 tabs 05/26/24 Unknown Rx bupropion HCl 200 mg tablet,12 hr 200 mg PO BID #60 ea 06/02/24 Unk nown Rx sustained-release Allergy/AdvReac Type Severity Reaction Status Date / Time No Known Allergies Allergy Verified 12/07/24 19:29 Family History Father Myocardial infarction 70s Hypertension Surgical History History of removal of cyst [place] teeth extracted Social History household members: other details: sober living current occupational status: employed current occupation: [employer]) Smoking Status: Current every day smoker tobacco type: e-cigarettes Electronic Cigarette Use: not used alcohol intake: former details: 2021 substance use type: former substance user Date of last use: 06/28/2021, heroin and opiates do you feel safe at home: Yes EXAM Physical Exam Const Vital Signs: 12/07/24 19:27 12/07/24 21:27 12/07/24 22:00 Temperature 98.3 F 97.9 F Temperature Source Oral Pulse Rate 106 H 88 Respiratory Rate 16 20 H 18 Blood Pressure 151/104 H 112/60 122/77 H Blood Pressure Mean 119 77 92 Pulse Ox 100 100 100 Oxygen Delivery Method Room Air Room Air MDM MDM MDM Narrative Medical decision making narrative: 34-year-old female with past medical history of fentanyl and methamphetamine abuse presents requesting polysubstance detox. Last used this morning. Currently denies any withdrawal symptoms. Placement labs were ordered in triage per protocol. I agree with the labs that was ordered. CBC without leukocytosis or anemia. BMP unremarkable. Serum negative. Urine drug screen positive for fentanyl and amphetamines. Alcohol level unremarkable. Patient will warrant admission for her polysubstance drug abuse and requesting detox. Patient discussed with the hospitalist who accepted admission. Impression: 1. Polysubstance abuse including fentanyl and methamphetamine 2. Requesting detox Lab Data Labs: Laboratory Results - last 24 hr 12/07/24 12/07/24 19:50 21:30 WBC 4.5 RBC 3.99 L Hgb 12.0 Hct 34.9 L MCV 87.5 MCH 30.1 MCHC 34.4 RDW Std Deviation 41.5 RDW Coeff of Jose 13.1 Plt Count 216 MPV 9.4 Immature Gran % (Auto) 0.200 Neut % (Auto) 54.5 Lymph % (Auto) 38.0 Luna % (Auto) 6.9 Eos % (Auto) 0.0 Baso % (Auto) 0.4 Absolute Neuts (auto) 2.4 Absolute Lymphs (auto) 1.70 Nucleated RBC % 0 (more content not included)... Normal [facility] Eosinophil percentageOrdered By: ED PROVIDER on 12-07-2024 Eosinophils/100 WBC (Bld) 0.0 % 0-5 [facility] Erythrocyte distribution wid th ratioOrdered By: ED PROVIDER on 12-07-2024 Erythrocyte distribution width (RBC) [Ratio] 13.1 % 11.6-14.6 [facility] Erythrocyte distribution wid th standard deviationOrdered By: ED PROVIDER on 12-07-2024 Erythrocyte distribution width (RBC) [Ratio] 41.5 fl 35.1-43.9 [facility] Glomerular filtration rate ( GFR) estimation/1.73 sq m using serum, plasma, or whole bOrdered By: ED PROVIDER on 12-07-2024 GFR/1.73 sq M.predicted among non-blacks MDRD (S/P/Bld) [Vol rate/Area] 112 mL/min/{1.73_m2} >60 [facility] Comment on above: mL/min/1.73m2 CKD-EP I Creatinine Equation (2020) Hematocrit Auto (Bld) [Volum e fraction]Ordered By: ED PROVIDER on 12-07-2024 Hematocrit (Bld) [Volume fraction] 34.9 % Low 37-47 [facility] Hemoglobin measurementOrdere d By: ED PROVIDER on 12-07-2024 Hemoglobin (Bld) [Mass/Vol] 12.0 g/dL 12.0-15.0 [facility] Immature granulocytes/100 WB C Auto (Bld)Ordered By: ED PROVIDER on 12-07-2024 Immature granulocytes/100 WBC (Bld) 0.200 % 0.0-0.9 [facility] Comment on above: IG% - Immature Granu locytes (promyelocytes, myelocytes and metamyelocytes) > 1% indicates that a LEFT SHIFT is Present. MCV (mean corpuscular volume ) determinationOrdered By: ED PROVIDER on 12-07-2024 MCV (RBC) [Entitic vol] 87.5 fL 81-99 [facility] Mean corpuscular hemoglobin (MCH) determinationOrdered By: ED PROVIDER on 12-07-2024 MCH (RBC) [Entitic mass] 30.1 pg 27.0-32.0 [facility] Mean corpuscular hemoglobin concentration (MCHC) determinationOrdered By: ED PROVIDER on 12-07-2024 MCHC (RBC) [Mass/Vol] 34.4 g/dL 32-36 [facility] Mean platelet volume determi nationOrdered By: ED PROVIDER on 12-07-2024 Platelet mean volume (Bld) [Entitic vol] 9.4 fL 6.2-12.0 [facility] Monocyte percentageOrdered B y: ED PROVIDER on 12-07-2024 Monocytes/100 WBC (Bld) 6.9 % 0-10 [facility] Neutrophil percentageOrdered By: ED PROVIDER on 12-07-2024 Neutrophils/100 WBC (Bld) 54.5 % 47-70 [facility] No Panel InformationOrdered By: Jaden Yepez on 12-07-2024 Urine Buprenorphine Qualitative Negative < 200 ng/mL [facility] Urine Oxycodone Screen Negative < 100 ng/mL [facility] Nucleated red blood cell per centageOrdered By: ED PROVIDER on 12-07-2024 Nucleated RBC/100 WBC (Bld) [Ratio] 0 % 0-5 [facility] Platelet countOrdered By: ED PROVIDER on 12-07-2024 Platelets (Bld) [#/Vol] 216 10*3/uL 150-450 [facility] Platelet estimateOrdered By: Jaden Yepez on 12-07-2024 Platelets LM Ql (Bld) ADEQUATE ADEQ [facility] Potassium measurement (mass/ volume)Ordered By: ED PROVIDER on 12-07-2024 Potassium (Unsp spec) [Mass/Vol] 3.9 mmol/L 3.3-5.1 [facility] ,Serum,hCG Quali.on 12-07-2024 HCG, SERUM QUAL Negative Normal [facility] Comment on above: Order Comment: if fe male and of childbearing age (8-55 years old) Performed By: #### L 501.9100, L700.6800, L500.2500, L100.0100, L505.5000 #### [facility] [address] [place], [address] Quantitative urine opiates m easurementOrdered By: Jaden Yepez on 12-07-2024 Opiates Ql (U) Negative < 300 ng/mL [facility] RBC Auto (Bld) [#/Vol]Ordere d By: ED PROVIDER on 12-07-2024 RBC (Bld) [#/Vol] 3.99 10*6/uL Low 4.2-5.4 [facility] Screening urine fentanyl traci surementOrdered By: Jaden Yepez on 12-07-2024 fentaNYL Screen Ql (U) Positive [facility] Comment on above: If confirmation test ing is needed, a separate order will be required to send out testing to the reference laboratory. Serum beta-hCG test, qualita tiveOrdered By: Jaden Yepez on 12-07-2024 Beta HCG ( test) Ql Negative [facility] Serum creatinine measurement (mass/volume)Ordered By: ED PROVIDER on 12-07-2024 Creatinine [Mass/Vol] 0.72 mg/dL 0.70-1.20 [facility] Serum glucose measurement (m ass/volume)Ordered By: ED PROVIDER on 12-07-2024 Glucose [Mass/Vol] 112 mg/dL High 70-99 [facility] Serum or plasma calcium bebeto urement (mass/volume)Ordered By: ED PROVIDER on 12-07-2024 Calcium [Mass/Vol] 9.1 mg/dL 7.6-11.0 [facility] Serum or plasma ethanol bebeto urement (mass/volume)Ordered By: ED PROVIDER on 12-07-2024 Ethanol [Mass/Vol] mg/dL <10.1 [facility] Comment on above: This test is for med ical purposes only. The legal definition of intoxication varies according to local law. Serum or plasma urea nitroge n measurement (mass/volume)Ordered By: ED PROVIDER on 12-07-2024 Urea nitrogen [Mass/Vol] 12 mg/dL 4-19 [facility] Sodium levelOrdered By: PEPE ORELLANA on 12-07-2024 Sodium [Moles/Vol] 139 mmol/L 133-145 [facility] Urine Drug Screen (VISTA)on 12-07-2024 AMPHETAMINES Positive Normal <1000 ng/mL [facility] Comment on above: Result Comment: If c onfirmation testing is needed, a separate order will be required to send out testing to the reference laboratory. Performed By: #### L 501.9100, L700.6800, L500.2500, L100.0100, L505.5000 #### [facility] [address] [place] [address] BARBITIURATES Negative Normal < 200 ng/mL [facility] Comment on above: Performed By: #### L 501.9100, L700.6800, L500.2500, L100.0100, L505.5000 #### [facility] [address] [place] [address] BENZODIAZIPINE Negative Normal < 200 ng/mL [facility] Comment on above: Performed By: #### L 501.9100, L700.6800, L500.2500, L100.0100, L505.5000 #### [facility] [address] [place], [place], [facility] BUP Ur Drug Scr Negative Normal < 200 ng/mL [facility] Comment on above: Performed By: #### L 501.9100, L700.6800, L500.2500, L100.0100, L505.5000 #### [facility] [address] [place] [address] COCAINE Negative Normal < 300 ng/mL [facility] Comment on above: Performed By: #### L 501.9100, L700.6800, L500.2500, L100.0100, L505.5000 #### [facility] [address] [place], [address] Fentanyl Positive Normal [facility] Comment on above: Result Comment: If c onfirmation testing is needed, a separate order will be required to send out testing to the reference laboratory. Performed By: #### L 501.9100, L700.6800, L500.2500, L100.0100, L505.5000 #### [facility] [address] [place], [address] METHADONE Negative Normal < 300 ng/mL [facility] Comment on above: Performed By: #### L 501.9100, L700.6800, L500.2500, L100.0100, L505.5000 #### [facility] [address] [place], [address] OPIATES Negative Normal < 300 ng/mL [facility] Comment on above: Performed By: #### L 501.9100, L700.6800, L500.2500, L100.0100, L505.5000 #### [facility] [address] [place], [address] OXYCODONE Negative Normal < 100 ng/mL [facility] [facility] Comment on above: Performed By: #### L 501.9100, L700.6800, L500.2500, L100.0100, L505.5000 #### [facility] [address] [place], [address] PCP Negative Normal < 25 ng/mL [facility] Comment on above: Performed By: #### L 501.9100, L700.6800, L500.2500, L100.0100, L505.5000 #### [facility] [address] [place], [address] THC Negative Normal < 50 ng/mL [facility] Comment on above: Performed By: #### L 501.9100, L700.6800, L500.2500, L100.0100, L505.5000 #### [facility] [address] [place], [address] Urine benzodiazepine levelOr dered By: Jaden Yepez on 12-07-2024 Benzodiazepines Ql (U) Negative < 200 ng/mL [facility] Urine cocaine levelOrdered B y: Jaden Yepez on 12-07-2024 Cocaine Ql (U) Negative < 300 ng/mL [facility] Urine qkczq-2-rcjwvcxquplmmm abinol (THC) measurementOrdered By: Jaden Camargo on 12-07-2024 Cannabinoids Screen Ql (U) Negative < 50 ng/mL [facility] Urine phencyclidine (PCP) de tectionOrdered By: Jaden Yepez on 12-07-2024 Phencyclidine Ql (U) Negative < 25 ng/mL [facility] White blood cell (WBC) count Ordered By: ED PROVIDER on 12-07-2024 WBC (Bld) [#/Vol] 4.5 10*3/uL 4.4-11.0 [facility] CNOVon 10-26-2024 [facility] Office Visit (UCWSTR) CHRISTA COLBERT ([id number]) 1990 F Date Time Provider Department 10/26/24 6:45 PM CATIE FLORES [facility] During your visit today, we recorded the following information about you: Temperature Pulse Respiration Blood pressure 97.6 degrees 101/minute 18/minute 132/82 Weight 70.6 kg Catie Flores APRN.[facility] 10/26/2024 7:31 PM Signed Subjective The history is provided by the patient. No supervisor modern languages was used. MARY LOU Colbert is a 34 year old female who [...] have confirmed and edited as necessary, the [facility] Review of Systems Constitutional: Negative [...] 10/26/2024 Noted Resolved Anxiety disorder [F41.9] 08/14/2022 [facility] current use of antipsychotic medicati*09/28/2022 Other instructions [...] 7 days. Encounter Status:Closed by CATIE FLORES on (more content not included)... Normal [facility] CNOVon 04-14-2024 CNOV Office Visit (UCWSTR) CHRISTA COLBERT ([id number]) 1990 F Date Time Provider Department 04/14/24 5:00 PM CLAUSTUCKER [facility] During your visit today, we recorded the following information about you: Temperature Pulse Respiration Blood pressure 98.1 degrees 96/minute 18/minute 129/84 Weight 83.8 kg Tucker Devlin APRN.[facility] 04/14/2024 5:21 PM Signed Subjective HPI HPI Christa Colbert is a 34 year old female who [...] PROPIONATE 50 MCG/ACTUATION NASAL SPRAY,SUSPENSION Tucker Devlin APRN.[facility] Allergies As of Date: 04/14/2024 (No Known Allergies) Date Reviewed: 04/14/2024 Reviewed by: Aylin Escalante MA - Fully Assessed Reason for Visit: Sore Throat [200] Cmt: Fatigue, bilateral ear pressure and muffled hearing x4 days, strep exposure Primary Visit Diagnosis:Sore throat [J02.9] Order(s):STREP A MOLECULAR (POC) [4860146] Order #: [id number]. #:[id number] predniSONE (DELTASONE) 20 mg tabletTake 2 tablets by mouth once da (more content not included)... Normal [facility] STREP A MOLECULAR (POC)on Procedural Control Valid [facility] Strep A (POCT) Negative Negative [facility] Internal Medicine Office Vis iton 03-16-2024 Internal Medicine Office Visit [facility] [address] [place] [address] OFFICE VISIT Date of Service: 03/17/24 MR#: [id number] Acct: [id number] Name: CHRISTA COLBERT Rep #: [id number] : 1990 Provider: Dr. 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 Declines flu vaccine. [facility] Medical History HPV in female Back problem Substance abuse Smoker Irregular heart beat PTSD (post-traumatic stress disorder) Depression Anxiety Asthma Surgical History History of removal of cyst [place] teeth extracted Family History Father Myocardial infarction 70s Hypertension Social History household members: other details: sober living current occupational status: employed current occupation: [employer] ([place]) Smoking Status: Current every day smoker tobacco type: e-cigarettes Electronic Cigarette Use: not used alcohol intake: former details: 2021 substance use type: former substance user Date of last use: 06/28/2021, heroin and opiates do you feel safe at home: Yes HPI HPI Chief Complaint: 6 M FU Details: CHRISTA COLBERT, is a 34 F who presents to [...] nasal conges (more content not included)... Normal [facility] STREP A MOLECULAR (POC)on Procedural Control Valid [facility] Strep A (POCT) Negative Negative [facility] STREP A MOLECULAR (POC)on Procedural Control Valid [facility] Strep A (POCT) Negative Negative [facility] COVID NAAT, UPPER RESPIRATOR Y, ROUTINEon 03-27-2023 SARS-CoV-2 (COVID-19) RNA KATELYNN+probe Ql (Resp) Not detected See comment [facility] ROUTINE FLU A/B + RSVon FLUAV RNA KATELYNN+probe Ql (Unsp spec) Not detected Not Detected [facility] FLUBV RNA KATELYNN+probe Ql (Unsp spec) Not detected Not Detected [facility] RSV A RNA KATELYNN+probe Ql (Unsp spec) Not detected Not Detected [facility] HCG QUAL UR B/Oon 01-08-2023 status Negative neg - pos [facility] Quality Check Yes [facility] Absolute lymphocyte countOrd ered By: Dr. Abraham on 08-09-2022 Lymphocytes Auto (Unsp spec) [#/Vol] 1.27 10*3/uL 0.83-4.51 [facility] Basophil percentageOrdered B y: Dr. Abraham on 08-09-2022 Basophils/100 WBC (Bld) 0.5 % 0-1 [facility] Bilirubin [Mass/Vol] 0.70 mg/dL 0.20-1.00 [facility] Comment on above: For patients on eltr ombopag therapy, use of Dimension [place] TBIL is not recommended. Chloride [Moles/Vol] 107 mmol/L 98-107 [facility] Cholesterol [Mass/Vol] 164 mg/dL <200 [facility] Comment on above: <200 mg/dL Desirable 200-240 mg/dL Borderline >240 mg/dL High Risk Eosinophils/100 WBC (Bld) 0.8 % 0-5 [facility] Glucose [Mass/Vol] 95 mg/dL 74-106 [facility] Neutrophils (Bld) [#/Vol] 5.0 10*3/uL 2.0-7.7 [facility] Neutrophils/100 WBC (Bld) 74.7 % 47-70 [facility] Potassium [Moles/Vol] 3.6 mmol/L 3.5-5.1 [facility] Protein [Mass/Vol] 8.0 g/dL 6.4-8.2 [facility] Sodium [Moles/Vol] 141 mmol/L 136-145 [facility] Triglyceride [Mass/Vol] 136 mg/dL <199 [facility] Comment on above: The drugs N-Acetylcy steine and Metamizole may falsely depress this assay.Serum Triglycerides Reference Interval Normal <150 mg/dL Borderline high 150 - 199 mg/dL High 200 - 499 mg/dL Very High > or = 500 mg/dL WBC (Bld) [#/Vol] 6.7 10*3/uL 4.4-11.0 [facility] Blood erythrocytes count (nu mber/volume)Ordered By: Dr. Abraham on 08-09-2022 RBC (Bld) [#/Vol] 4.46 10*6/uL 4.2-5.4 [facility] Blood hemoglobin measurement (mass/volume)Ordered By: Dr. Abraham on 08-09-2022 Hemoglobin (Bld) [Mass/Vol] 13.7 g/dL 12.0-15.0 [facility] Blood lymphocytes/100 leukoc ytesOrdered By: Dr. Abraham on 08-09-2022 Lymphocytes/100 WBC (Bld) 19.1 % 19-41 [facility] Blood monocytes/100 leukocyt esOrdered By: Dr. Abraham on 08-09-2022 Monocytes/100 WBC (Bld) 4.7 % 0-10 [facility] Blood platelet mean volumeOr dered By: Dr. Abraham on 08-09-2022 Platelet mean volume (Bld) [Entitic vol] 9.4 fL 6.2-12.0 [facility] Determination of erythrocyte mean corpuscular volume (MCV)Ordered By: Dr. Abraham on 08-09-2022 MCV (RBC) [Entitic vol] 91.7 fL 81-99 [facility] HIV 1 and HIV-2 antibody ass ay with HIV-1 p24 antigen detectionOrdered By: Dr. Abraham on 08-09-2022 HIV 1+2 Ab+HIV1 p24 Ag IA Ql Non-Reactive Nonreactive [facility] Hematocrit Auto (Bld) [Volum e fraction]Ordered By: Dr. Abraham on 08-09-2022 Hematocrit (Bld) [Volume fraction] 40.9 % 37-47 [facility] - Chemistry and C hemistry - challengeOrdered By: Dr. Abraham on 08-09-2022 ALP [Catalytic activity/Vol] 45 U/L 45-117 [facility] ALT [Catalytic activity/Vol] 17 U/L 13-56 [facility] CO2 [Moles/Vol] 27.0 mmol/L 21.0-32.0 [facility] Globulin (S) [Mass/Vol] 3.6 g/dL 2.2-4.2 [facility] Urea nitrogen/Creatinine [Mass ratio] 11.6 mg/mg 10-20 [facility] - Hematology and Cell countsOrdered By: Dr. Abraham on 08-09-2022 Erythrocyte distribution width (RBC) [Entitic vol] 41.6 fL 35.1-43.9 [facility] Erythrocyte distribution width (RBC) [Ratio] 12.6 % 11.6-14.6 [facility] Immature granulocytes/100 WBC (Bld) 0.200 % 0.0-0.9 [facility] Comment on above: IG% - Immature Granu locytes (promyelocytes, myelocytes and metamyelocytes) > 1% indicates that a LEFT SHIFT is Present. MCH (RBC) [Entitic mass] 30.7 pg 27.0-32.0 [facility] Nucleated RBC/100 WBC (Bld) [Ratio] 0 % 0-5 [facility] MCHC Auto (RBC) [Mass/Vol]Or dered By: Dr. Abraham on 08-09-2022 MCHC (RBC) [Mass/Vol] 33.5 g/dL 32-36 [facility] No Panel InformationOrdered By: Dr. Abraham on 08-09-2022 Estimated GFR (MDRD) Amer 98 mL/min >60 [facility] Comment on above: GFR Calc Estimated GFR (MDRD) Non-Af Amer 81 mL/min >60 [facility] Comment on above: Non- GFR Calc Hepatitis A IgM Antibody Negative Negative [facility] Hepatitis B Core IgM Antibody Negative Negative [facility] Hepatitis C Antibody (EIA) Non-Reactive Non Reactive [facility] Hepatitis C Antibody Comment Comment . [facility] Comment on above: Not infected with HC V unless early or acute infection issuspected (which may be delayed in an immunocompromisedindividual), or other evidence exists to indicate HCVinfection.Performed at: - [facility] [address] [id number] Director: Steve Salas PhD, Phone: [phone] Thyroid Stimulating Hormone (TSH) 1.22 uIU/mL 0.358-3.74 [facility] Platelets bldOrdered By: Dr. Abraham on 08-09-2022 Platelets (Bld) [#/Vol] 255 10*3/uL 150-450 [facility] Serum or plasma albumin bebeto urement (mass/volume)Ordered By: Dr. Abraham on 08-09-2022 Albumin [Mass/Vol] 4.4 g/dL 3.2-5.0 [facility] Serum or plasma albumin/glob ulin mass ratioOrdered By: Dr. Abraham on 08-09-2022 Albumin/Globulin [Mass ratio] 1.2 {ratio} 0.9-2.4 [facility] Serum or plasma calcium bebeto urement (mass/volume)Ordered By: Dr. Abraham on 08-09-2022 Calcium [Mass/Vol] 9.3 mg/dL 8.5-10.1 [facility] Serum or plasma cholesterol in HDL measurement (mass/volume)Ordered By: Dr. Abraham on 08-09-2022 Cholesterol in HDL [Mass/Vol] 62 mg/dL >40 [facility] Comment on above: The drugs N-Acetylcy steine and Metamizole may falsely depress this assay. Reference Range HDL <40 mg/dL Low HDL Cholesterol HDL >or= 60 mg/dL High HDL Cholesterol Serum or plasma cholesterol in VLDL measurement (mass/volume)Ordered By: Dr. Abraham on 08-09-2022 Cholesterol in VLDL [Mass/Vol] 27 mg/dL 5-40 [facility] Serum or plasma creatinine m easurement (mass/volume)Ordered By: Dr. Abraham on 08-09-2022 Creatinine [Mass/Vol] 0.86 mg/dL 0.55-1.02 [facility] Comment on above: The validity of the calculated GFR & GFRAA in patients over 70 years has not been determined. Clinical correlation is essential. Serum or plasma hepatitis B virus surface antigen detection by immunoassayOrdered By: Dr. Abraham on 08-09-2022 HBV surface Ag IA Ql Negative Negative [facility] Serum or plasma low density lipoprotein (LDL) cholesterol measurement (mass/volume)Ordered By: Dr. Abraham on 08-09-2022 Cholesterol in LDL [Mass/Vol] 75 mg/dL 0-130 [facility] Serum or plasma urea nitroge n measurement (mass/volume)Ordered By: Dr. Abraham on 08-09-2022 Urea nitrogen [Mass/Vol] 10 mg/dL 7-18 [facility] Thin prep Papanicolaou smear with manual screeningOrdered By: Dr. Abraham on 08-09-2022 Thin prep Papanicolaou smear with manual screening 9 U/L 15-37 [facility] Thin prep Papanicolaou smear with manual screening 7 5-15 [facility] Whole blood hemoglobin A1c/t otal hemoglobin ratio (mass fraction)Ordered By: Dr. Abraham on 08-09-2022 HbA1c (Bld) [Mass fraction] 4.5 % 3.8-5.6 [facility] Comment on above: Normal < 5.7 % Predi abetic 5.7 - 6.4 % Diabetic >or= 6.5 % Please note range changes. 2019 Novel Coronavirus (CoVI D-19), NAAon 02-29-2020 SARS-CoV-2, KATELYNN Not Detected Normal Not Detected [facility] Comment on above: Result Comment: This nucleic acid amplification test was developed and its performance characteristics determined by [employer] Nucleic acid amplification tests include PCR and [...] detected) result in this assay. Performed at: [facility] [address] [facility] [place] [id number] [place] Representative: Hermilo Campos MD, Phone: [phone] Performed By: #### C BC #### [place] [address] [address] [facility] Patient: NEVAEH COLBERT MRNIMCO [id number] Location: [facility] Aount: [id number] : 1990 Age: 30 Sex F Lab NumbEr [id number] Requested by: PHUONG CROWDER Admitdate: 02/18/20 Source: THR Collected: 02/18/20 18:49 Site: Received : 02/18/20 19:17 Culture, Throat-Strep FINAL 02/20/20 10:32 02/20/[address] GR A: NEGATIVE FOR GROUP A BETA-HEMOLYTIC STREPTOCOCCUS Normal [facility] Comment on above: Performed By: #### C BC #### [address] [address] EMERGENCY DEPARTMENTon 11-24 EMERGENCY DEPARTMENT [place] [id number] HEALTH INFORMATION MANAGEMENT EMERGENCY DEPARTMENT : Signed Patient: NEVAEH COLBERT Acct:[id number] MR N: [id number] : 1990 Sex: F Loc: ED ADM Date: Room/Bed: DISC Date: 11/18/19 History of Present Illness - General Chief complaint: Withdraw Stated complaint: WITHDRAWAL Symptom onset: TODAY HPI: PATIENT STATES SHE USED [facility] THIS MORNING THEN WENT AND GOT A VIVITROL SHOT AND IS NOW EXPERIENCING WITHDRAWAL. No vag bleed/discharge. Denies any travelling history/sick contacts/recent use of antibiotics. No cough/congestion/fev er/chills/rash. No blood in stool/vomit us or urine. NO LOC/Dizziness/Syncop e. No headache/neck pain/dyspnea/chest pain or abdominal pain. [...] palpitations. Absent: chest pain, edema - GI Gastrointestinal/Abd ominal: Present: no symptoms reported. Absent: abdominal pain, diarrhea, nausea, vomiting - Genitourinary Symptoms: Present: no symptoms reported. Absent: dysuria - Neuro Neurological: Present: emotional problems. Absent: headache, numbness, paresthesia, pre-existing deficit, seizure, tingling, weakness, saddle anesthesia - Muskuloskeletal Musculoskeletal: Present: no symptoms reported. Absent: back pain, joint pain, joint swelling, neck pain - Integumentary Skin: Absent: lesions, rash - Allergic/Immunologic Immunological/Allerg ic: Present: no symptoms reported - Hematologic Hematologic/Lymphati c: Absent: easy bleeding, easy bruising, swollen glands [...] Abuse: No Hx Suspected Abuse: No - [place]/Gender ID What is your current Gender Identity? Choose all that Apply: Female - [place]-Suicide Severity Rating Scale 1) Wish to be [...] ideation - Skin Skin Color: Present: Normal, Louann Skin exam: Present: warm, dry - Expanded [...] % Lymph % (Auto) 21.8 (17.0-45.5) % Luna % (Auto) 7.3 (5.5-11.7) % Eos % [...] 14 (6-20) Glucose 90 (65-100) mg/dL Specific [place] (1.015-1.025) Calcium 8.6 (8.2-10.0) mg/dL Phosphorus (2.5-4.9) [...] Urine Appearance (Clear) Urine pH Ur Specific [place] (1.015-1.025) Urine Protein (Negative) Urine Ketones (Negative) [...] (43.0-65.0) % Lymph % (Auto) (17.0-45.5) % Luna % (Auto) (5.5-11.7) % Eos % (Auto) [...] BUN/Creatinine Ratio (6-20) Glucose (65-100) mg/dL Specific [place] 1.010 L (1.015-1.025) Calcium (8.2-10.0) mg/dL Phosphorus [...] (Clear) Urine pH 8 8.0 Ur Specific [place] 1.010 L (1.015-1.025) Urine Protein Negative (Negative) [...] (43.0-65.0) % Lymph % (Auto) (17.0-45.5) % Luna % (Auto) (5.5-11.7) % Eos % (Auto) [...] BUN/Creatinine Ratio (6-20) Glucose (65-100) mg/dL Specific [place] (1.015-1.025) Calcium (8.2-10.0) mg/dL Phosphorus (2.5-4.9) mg/dL Magnesium (1.3-2.3) mg/dL Total Bilirubin (0.00-0.99) mg/dL AST (3-39) U/L ALT (13-66) U/L Alkaline Phosphatase (54-112) U/L Troponin I, Quant (0.000-0.056) ng/mL Total Protein (6.1-8.2) g/dL Albumin (3.4-5.0) g/dL Globulin (1.5-4.5) g/dL Albumin/Globulin Ratio (1.1-2.5) Beta HCG, Quant mIU/mL Urine Color (Yellow) Urine Appearance (Clear) Urine pH Ur Specific [place] (1.015-1.025) Urine Protein (Negative) Urine Ketones (Negative) [...] report for findings IMPRESSIONS Electrocardiogram 11/18/19 14:38 [facility] ED Test Date: 2019-11-18 Test Time: 17:12:16 Pat Name: NEVAEH COLBERT Department: Room: Gender: F Painter Mirror: DWANIE : 1990 Requested By: BRIDGETT JOE Order Number: [id number] Jeanne MD: BRIDGETT JOE Measurements Intervals [place] Rate: 110 P: 72 MS: 133 QRS: 81 QRSD: 80 T: -1 QT: 343 QTc: 465 Interpretive Statements Sinus tachycardia Probable left atrial enlargement Borderline T abnormalities, inferior leads No previous ECG available for comparison Electronically Signed On 11-18-2019 19:07:58 EDT by BRIDGETT JOE Chest X-Ray 11/18/19 16:17 IMPRESSION: No acute process. Electrocardiogram 11/18/19 17:09 [facility] ED Test Date: 2019-11-18 Test Time: 14:27:48 Pat Name: NEVAEH COLBERT Department: Room: Gender: F Painter Mirror: DWAINE : 1990 Requested By: BRIDGETT JOE Order Number: [id number] Reading MD: Measurements Intervals [place] Rate: 105 P: 71 MS: 137 QRS: 78 QRSD: 88 T: 1 QT: 347 QTc: 459 Interpretive Statements Sinus tachycardia Probable left atrial enlargement No previous ECG available for comparison - Medical Decision Making Patient was tachycardic upon arrival to the emergency room. She denied any suicidal or homicidal ideation EKG showed sinus tachycardia, normal MS, QTc was 452 Consulted poison control who [...] do not have admission beds available at [facility] hence patient be transferred to [facility] for admission, supportive treatment and for cardiology consult Patient accepted at [facility]. Please see transfer record for further details Patient speech and grasp are intact. No acute neurovascular deficits noted. Patient states understanding of transfer to [facility] and agrees with management and plan - Differential Diagnosis Differential Diagnosis: Drug withdrawal/medicatio n side effect/anxiety/arrhy thmia/panic disorder/electrolyte abnormalities Critical Care Time - Critical Care Time Critical Care Provided: Yes CC time not at bedside: Discussion with consults, Obtaining information from family/friends/EMS, Review nursing notes and old records, Determining code status, Reviewing diagnostic tests Total Critical Care Time: 45 Critical Care Note: (Management of tachycardia, IV fluids management, discussion with poison control, discussion with special events assistant, arranging transfer of patient to tertiary care facility) 45 minutes total critical care time ED Discharge Summary - Discharge Data Clinical Impression: Abnormal EKG, Drug side effects, Tachycardia Condition: Fair Disposition: XFER SHT-TRM HOSP Referrals: GEORGI GILLETTE [Primary Care Provider] - Home Medications: Ambulatory Orders Medication Instructions Recorded Medroxyprogesterone Acetate 08/27/18 Naltrexone Microspheres [Vivitrol] 08/27/18 Home medications and allergies reviewed: Yes Time Seen by Provider: 11/18/19 14:23 - Consultation Nurses Notes Reviewed and Agreed With?: Yes - Dictation Amendments/Documenta tion: [employer] Document Only Electronically Generated By: BRIDGETT JOE MD Generated Date/Time: 11/18/19 1557 Electronically Signed By: BRIDGETT JOE MD Signed Date/Time 11/25/19 1827 Co Signed Electronically By: Co Signed Date/Time: CC: GEORGI GILLETTE [facility] .GFRon 11-21-2019 GFR Non- >60 Normal [facility] ([place]) Comment on above: Result Comment: GFR Population [...] meters Performed By: #### T KHAI #### [place] [address] GFR >60 Normal [facility] ([place]) Comment on above: Result Comment: GFR Population [...] meters Performed By: #### T KHAI #### [address] [address] [facility] 11-21-2019 Creatinine [Mass/Vol] 0.68 mg/dL Normal 0.50-1.20 [facility] ([place]) Comment on above: Performed By: #### T KHAI #### [address] [address] Urea nitrogen/Creatinine [Mass ratio] 13.2 ratio Normal 10.0-22.0 [facility] ([place]) Comment on above: Performed By: #### T KHAI #### [address] [address] Calcium [Mass/Vol] 9.3 mg/dL Normal 8.4-10.1 [facility] ([place]) Comment on above: Performed By: #### T KHAI #### [address] [address] Chloride [Moles/Vol] 114 mmol/L High 98-110 [facility] ([place]) Comment on above: Performed By: #### T KHAI #### [address] [address] CO2 [Moles/Vol] 23 mmol/L Normal 22-32 [facility] ([place]) Comment on above: Performed By: #### T KHAI #### [address] [address] Electrolyte Balance 8.0 mEq/L Normal 4.0-15.0 [facility] ([place]) Comment on above: Performed By: #### T ROPI #### [address] [address] Glucose [Mass/Vol] 95 mg/dL Normal 70-110 [facility] ([place]) Comment on above: Performed By: #### T ROPI #### [address] [address] Potassium [Moles/Vol] 3.2 mmol/L Low 3.5-5.0 [facility] ([place]) Comment on above: Performed By: #### T ROPI #### [address] [address] Sodium [Moles/Vol] 145 mmol/L Normal 136-145 [facility] ([place]) Comment on above: Performed By: #### T ROPI #### [address] [address] Urea nitrogen [Mass/Vol] 9.0 mg/dL Normal 8.0-22.0 [facility] ([place]) Comment on above: Performed By: #### T ROPI #### [address] [address] .Auto Diffon 11-20-2019 Ammonia (P) [Mass/Vol] 0.40 10 3/mcL Normal 0.09-1.40 [facility] ([place]) Comment on above: Performed By: #### T ROPI #### [address] [address] Basophils (Bld) [#/Vol] 0.00 10 3/mcL Normal 0.00-0.27 [facility] ([place]) Comment on above: Performed By: #### T ROPI #### [address] [address] Basophils/100 WBC (Bld) 0.2 % Normal 0.0-2.5 [facility] ([place]) Comment on above: Performed By: #### T ROPI #### [address] [address] Eosinophils (Bld) [#/Vol] 0.00 10 3/mcL Normal 0.00-0.65 [facility] ([place]) Comment on above: Performed By: #### T ROPI #### [address] [address] Eosinophils/100 WBC (Bld) 0.4 % Normal 0.0-6.0 [facility] ([place] Comment on above: Performed By: #### T ROPI #### [address] [address] Lymphocytes (Bld) [#/Vol] 1.20 10 3/mcL Normal 0.90-4.32 [facility] ([place] Comment on above: Performed By: #### T ROPI #### [address] [address] Lymphocytes/100 WBC (Bld) 21.0 % Normal 20.0-40.0 [facility] ([place] Comment on above: Performed By: #### T ROPI #### [address] [address] Monocytes/100 WBC (Bld) 6.7 % Normal 2.0-13.0 [facility] ([place]) Comment on above: Performed By: #### T ROPI #### [address] [address] Neutrophils/100 WBC (Bld) 71.7 % Normal 50.0-75.0 [facility] ([place] Comment on above: Performed By: #### T ROPI #### [address] [address] .GFRon 11-20-2019 GFR >60 Normal [facility] ([place]) Comment on above: Result Comment: GFR Population [...] meters Performed By: #### T KHAI #### [address] [address] GFR Non- >60 Normal [facility] ([place] Comment on above: Result Comment: GFR Population [...] 15 mL/min/1.73 square meters Performed By: #### Ilda RIDLEY #### [place] [address] .NEUABSon 11-20-2019 Neutrophils (Bld) [#/Vol] 3.90 10 3/mcL Normal 2.25-8.10 [facility] ([place] Comment on above: Performed By: ###Henri RIDLEY #### [address] [address] CBCon 11-20-2019 Erythrocyte distribution width (RBC) [Ratio] 13.7 % Normal 11.5-15.5 [facility] ([place] Comment on above: Performed By: #### Ilda RIDLEY #### [address] [address] Hematocrit (Bld) [Volume fraction] 34.4 % Normal 34.0-46.0 [facility] ([place] Comment on above: Performed By: #### Ilda RIDLEY #### [address] [address] Hemoglobin (Bld) [Mass/Vol] 12.1 G/dL Normal 12.0-16.0 [facility] ([place] Comment on above: Performed By: #### Ilda RIDLEY #### [address] [address] MCH (RBC) [Entitic mass] 31.1 pg Normal 27.0-33.0 [facility] ([place] Comment on above: Performed By: #### T KHAI #### [address] [address] MCHC (RBC) [Mass/Vol] 35.1 G/dL Normal 32.0-36.0 [facility] ([place]) Comment on above: Performed By: #### T KHAI #### [address] [address] MCV (RBC) [Entitic vol] 88.5 fL Normal 80.0-99.0 [facility] ([place]) Comment on above: Performed By: #### T KHAI #### [address] [address] Platelet mean volume (Bld) [Entitic vol] 7.3 fL Normal 6.6-10.5 [facility] ([place] Comment on above: Performed By: #### T KHAI #### [address] [address] Platelets (Bld) [#/Vol] 252 10 3/mcL Normal 150-450 [facility] ([place] Comment on above: Performed By: #### T KHAI #### [address] [address] RBC (Bld) [#/Vol] 3.89 10 6/mcL Low 4.10-5.30 [facility] ([place]) Comment on above: Performed By: #### T ORTIZI #### [address] [address] WBC (Bld) [#/Vol] 5.50 10 3/mcL Normal 4.50-10.80 [facility] ([place]) Comment on above: Performed By: #### T KHAI #### [address] [address] CMPon 11-20-2019 Albumin/Globulin [Mass ratio] 1.1 {ratio} Normal 0.9-1.6 [facility] ([place] Comment on above: Performed By: #### T ROPI #### [address] [address] ALP [Catalytic activity/Vol] 42 U/L Normal 38-126 [facility] ([place] Comment on above: Performed By: #### T ROPI #### [address] [address] ALT [Catalytic activity/Vol] 23 U/L Normal 10-49 [facility] ([place] Comment on above: Performed By: #### T ROPI #### [address] [address] Bili Total 1.0 mg/dL Normal 0.2-1.2 [facility] ([place] Comment on above: Result Comment: Use of this assay is not recommended for patients undergoing treatment with eltrombopag due to the potential for falsely elevated results. Performed By: #### T ROPI #### [place] [id number] Creatinine [Mass/Vol] 0.58 mg/dL Normal 0.50-1.20 [facility] ([place]) Comment on above: Performed By: #### T ROPI #### [address] [address] Globulin (S) [Mass/Vol] 3.2 G/dL Normal 1.5-3.8 [facility] ([place]) Comment on above: Performed By: #### T ROPI #### [address] [address] Protein [Mass/Vol] 6.6 G/dL Normal 6.0-8.5 [facility] ([place]) Comment on above: Performed By: #### T ROPI #### [address] [address] Urea nitrogen/Creatinine [Mass ratio] 15.5 ratio Normal 10.0-22.0 [facility] ([place] Comment on above: Performed By: #### T ROPI #### [address] [address] Albumin [Mass/Vol] 3.4 G/dL Normal 3.2-4.8 [facility] ([place] Comment on above: Performed By: #### T ROPI #### [address] [address] AST [Catalytic activity/Vol] 15 U/L Normal 8-34 [facility] ([place] Comment on above: Performed By: #### T ROPI #### [address] [address] Calcium [Mass/Vol] 8.8 mg/dL Normal 8.4-10.1 [facility] ([place] Comment on above: Performed By: #### T ROPI #### [address] [address] Chloride [Moles/Vol] 113 mmol/L High 98-110 [facility] ([place]) Comment on above: Performed By: #### T ROPI #### [place] [id number] CO2 [Moles/Vol] 20 mmol/L Low 22-32 [facility] ([place] Comment on above: Performed By: #### T ROPI #### [address] [address] Electrolyte Balance 8.0 mEq/L Normal 4.0-15.0 [facility] ([place]) Comment on above: Performed By: #### T ROPI #### [address] [address] Glucose [Mass/Vol] 89 mg/dL Normal 70-110 [facility] ([place] Comment on above: Performed By: #### T ROPI #### [address] [address] Potassium [Moles/Vol] 3.6 mmol/L Normal 3.5-5.0 [facility] ([place] Comment on above: Performed By: #### T ROPI #### [address] [address] Sodium [Moles/Vol] 141 mmol/L Normal 136-145 [facility] ([place] Comment on above: Performed By: #### T ROPI #### [address] [address] Urea nitrogen [Mass/Vol] 9.0 mg/dL Normal 8.0-22.0 [facility] ([place] Comment on above: Performed By: #### T KHAI #### [address] [address] DRUGUon 11-20-2019 Drug Screen Urine Negative Normal [facility] ([place] Comment on above: Performed By: #### T ORTIZI #### [place] [id number] Drug Screen Urine Interp Urine shows no evidence of drugs routinely screened. [facility] ([place] Comment on above: Performed By: #### T KHAI #### [address] [address] U pH Drug Scrn 7.0 Normal 5.0-8.0 [facility] ([place] Comment on above: Performed By: #### T KHAI #### [place] [id number] U Specific Eckerman Drg Scrn 1.012 Normal 1.005-1.030 [facility] ([place] Comment on above: Performed By: #### T KHAI #### [address] [address] Urine Drugs screened: See Below Normal [facility] ([place] Comment on above: Result Comment: This drug [...] ONLY. Performed By: #### T KHAI #### [address] [address] MGon 11-20-2019 Magnesium [Mass/Vol] 2.0 mg/dL Normal 1.6-2.4 [facility] ([place]) Comment on above: Performed By: #### T KHAI #### [address] [address] .Auto Diffon 11-19-2019 Ammonia (P) [Mass/Vol] 0.20 10 3/mcL Normal 0.09-1.40 [facility] ([place]) Comment on above: Performed By: #### C BC, ADIFF, ANEU, DRUGS #### [address] [address] Basophils (Bld) [#/Vol] 0.00 10 3/mcL Normal 0.00-0.27 [facility] ([place]) Comment on above: Performed By: #### C BC, ADIFF, ANEU, DRUGS #### [address] [address] Basophils/100 WBC (Bld) 0.1 % Normal 0.0-2.5 [facility] ([place]) Comment on above: Performed By: #### C BC, ADIFF, ANEU, DRUGS #### [address] [address] Eosinophils (Bld) [#/Vol] 0.00 10 3/mcL Normal 0.00-0.65 [facility] ([place]) Comment on above: Performed By: #### C BC, ADIFF, ANEU, DRUGS #### [address] [address] Eosinophils/100 WBC (Bld) 0.1 % Normal 0.0-6.0 [facility] ([place] Comment on above: Performed By: #### C BC, ADIFF, ANEU, DRUGS #### [address] [address] Lymphocytes (Bld) [#/Vol] 0.80 10 3/mcL Low 0.90-4.32 [facility] ([place] Comment on above: Performed By: #### C BC, ADIFF, ANEU, DRUGS #### [address] [address] Lymphocytes/100 WBC (Bld) 16.0 % Low 20.0-40.0 [facility] ([place] Comment on above: Performed By: #### C BC, ADIFF, ANEU, DRUGS #### [address] [address] Monocytes/100 WBC (Bld) 4.5 % Normal 2.0-13.0 [facility] ([place] Comment on above: Performed By: #### C BC, ADIFF, ANEU, DRUGS #### [address] [address] Neutrophils/100 WBC (Bld) 79.3 % High 50.0-75.0 [facility] ([place] Comment on above: Performed By: #### C BC, ADIFF, ANEU, DRUGS #### [address] [address] .GFRon 11-19-2019 GFR >60 Normal [facility] ([place] Comment on above: Result Comment: GFR Population [...] meters Performed By: #### T ROPI #### [address] [address] GFR Non- >60 Normal [facility] ([place] Comment on above: Result Comment: GFR Population [...] meters Performed By: #### T ROPI #### [place] [address] .NEUABSon 11-19-2019 Neutrophils (Bld) [#/Vol] 4.20 10 3/mcL Normal 2.25-8.10 [facility] ([place] Comment on above: Performed By: #### C BC, ADIFF, ANEU, DRUGS #### [place] [address] BMPon 11-19-2019 Creatinine [Mass/Vol] 0.55 mg/dL Normal 0.50-1.20 [facility] ([place] Comment on above: Performed By: #### B MP, TSH, GFR #### [place] [address] Urea nitrogen/Creatinine [Mass ratio] 14.5 ratio Normal 10.0-22.0 [facility] ([place] Comment on above: Performed By: #### B MP, TSH, GFR #### [place] [address] Calcium [Mass/Vol] 8.7 mg/dL Normal 8.4-10.1 [facility] ([place] Comment on above: Performed By: #### B MP, TSH, GFR #### [place] [address] Chloride [Moles/Vol] 112 mmol/L High 98-110 [facility] ([place]) Comment on above: Performed By: #### B MP, TSH, GFR #### [address] [address] CO2 [Moles/Vol] 22 mmol/L Normal 22-32 [facility] ([place] Comment on above: Performed By: #### B MP, TSH, GFR #### [place] [address] Electrolyte Balance 8.0 mEq/L Normal 4.0-15.0 [facility] ([place] Comment on above: Performed By: #### B MP, TSH, GFR #### [address] [address] Glucose [Mass/Vol] 94 mg/dL Normal 70-110 [facility] ([place] Comment on above: Performed By: #### B MP, TSH, GFR #### [address] [address] Potassium [Moles/Vol] 3.4 mmol/L Low 3.5-5.0 [facility] ([place] Comment on above: Performed By: #### B MP, TSH, GFR #### [address] [address] Sodium [Moles/Vol] 142 mmol/L Normal 136-145 [facility] ([place] Comment on above: Performed By: #### B MP, TSH, GFR #### [address] [address] Urea nitrogen [Mass/Vol] 8.0 mg/dL Normal 8.0-22.0 [facility] ([place] Comment on above: Performed By: #### B MP, TSH, GFR #### [address] [address] CBCon 11-19-2019 Erythrocyte distribution width (RBC) [Ratio] 14.0 % Normal 11.5-15.5 [facility] ([place] Comment on above: Performed By: #### C BC, ADIFF, ANEU, DRUGS #### [address] [address] Hematocrit (Bld) [Volume fraction] 34.9 % Normal 34.0-46.0 [facility] ([place] Comment on above: Performed By: #### C BC, ADIFF, ANEU, DRUGS #### [address] [address] Hemoglobin (Bld) [Mass/Vol] 12.1 G/dL Normal 12.0-16.0 [facility] ([place] Comment on above: Performed By: #### C BC, ADIFF, ANEU, DRUGS #### [address] [address] MCH (RBC) [Entitic mass] 31.1 pg Normal 27.0-33.0 [facility] ([place] Comment on above: Performed By: #### C BC, ADIFF, ANEU, DRUGS #### [address] [address] MCHC (RBC) [Mass/Vol] 34.6 G/dL Normal 32.0-36.0 [facility] ([place] Comment on above: Performed By: #### C BC, ADIFF, ANEU, DRUGS #### [address] [address] MCV (RBC) [Entitic vol] 89.7 fL Normal 80.0-99.0 [facility] ([place]) Comment on above: Performed By: #### C BC, ADIFF, ANEU, DRUGS #### [address] [address] Platelet mean volume (Bld) [Entitic vol] 7.2 fL Normal 6.6-10.5 [facility] ([place] Comment on above: Performed By: #### C BC, ADIFF, ANEU, DRUGS #### [address] [address] Platelets (Bld) [#/Vol] 249 10 3/mcL Normal 150-450 [facility] ([place] Comment on above: Performed By: #### C BC, ADIFF, ANEU, DRUGS #### [address] [address] RBC (Bld) [#/Vol] 3.89 10 6/mcL Low 4.10-5.30 [facility] ([place] Comment on above: Performed By: #### C BC, ADIFF, ANEU, DRUGS #### [address] [address] WBC (Bld) [#/Vol] 5.30 10 3/mcL Normal 4.50-10.80 [facility] ([place] Comment on above: Performed By: #### C BC, ADIFF, ANEU, DRUGS #### [address] [address] DIMERon 11-19-2019 Fibrin D-dimer FEU IA (Bld) [Mass/Vol] 208 ng/mL D-DU Normal 0-230 [facility] ([place] Comment on above: Result Comment: Resu lts [...] accordingly. Performed By: #### D STEPHANIE #### [place] [address] DRUGSon 11-19-2019 Acetaminophen [Mass/Vol] <2.0 Low 10.0-30.0 [facility] ([place] Comment on above: Performed By: #### C BC ADSHAJI ANEU, DRUGS #### [place] [address] Drug Screen (s) Negative Normal Negative [facility] ([place] Comment on above: Performed By: #### C BC ADIFF ANEU, DRUGS #### [place] [address] Drug Screen Interp Serum shows no evidence of drugs routinely screened [facility] ([place] Comment on above: Performed By: #### C BC ADIFF ANEU, DRUGS #### [place] [address] Ethanol Level <10.0 Normal [facility] ([place] Comment on above: Performed By: #### C BC, ADIFF, ANEU, DRUGS #### [place] [address] Salicylate Lvl (ds) <2.0 Low 10.0-25.0 [facility] ([place] Comment on above: Performed By: #### C BC, ADIFF, ANEU, DRUGS #### [place] [address] Serum Drugs screened: See Below Normal l [facility] ([place]) Comment on above: Result Comment: This drug screen is a presumptive screening only. No confirmation will be performed unless requested. Drugs included in the ER serum drug screen are: Threshold Ethanol 10.0 mg/dL Salicylate 2.0 mg/dl Acetaminophen 2.0 mcg/mL Tricyclic Antidepressants 300 ng/mL Testing has been performed FOR MEDICAL PURPOSES ONLY. Performed By: #### C MARICRUZ SUAREZ ANEU DRUGS #### [address] [address] TCA (s) Negative Normal [facility] ([place] Comment on above: Performed By: #### C MARICRUZ SUAREZ ANEU, DRUGS #### [place] [id number] FT4on 11-19-2019 Free T4 [Mass/Vol] 1.03 ng/dL Normal 0.60-1.70 [facility] ([place] Comment on above: Performed By: #### T KHAI #### [place] [address] TROPIon 11-19-2019 Troponin I.cardiac [Mass/Vol] ng/mL Normal 0.000-0.040 [facility] ([place] Comment on above: Result Comment: Trop onin I reference ranges (01/25/14): 0.00-0.040 ng/mL Negative and non-diagnostic. >0.040 ng/mL Consistent with cardiac damage, increased clinical risk and possibility of myocardial infarction. Serial measurements, a rise & fall in test results, clinical history, appropriate symptoms and/or ECG changes may help assess possibility of NC. *Other non-acute coronary syndrome conditions such as CHF, myocarditis, pulmonary emboli, sepsis and cardiac surgery could result in myocardial damage and increased troponin levels. Performed By: #### T KHAI #### [place] [address] Troponin I.cardiac [Mass/Vol] ng/mL Normal 0.000-0.040 [facility] ([place] Comment on above: Result Comment: Trop onin I reference ranges (01/25/14): 0.00-0.040 ng/mL Negative and non-diagnostic. >0.040 ng/mL Consistent with cardiac damage, increased clinical risk and possibility of myocardial infarction. Serial measurements, a rise & fall in test results, clinical history, appropriate symptoms and/or ECG changes may help assess possibility of NC. *Other non-acute coronary syndrome conditions such as CHF, myocarditis, pulmonary emboli, sepsis and cardiac surgery could result in myocardial damage and increased troponin levels. Performed By: #### T KHAI #### [place] [id number] Troponin I.cardiac [Mass/Vol] ng/mL Normal 0.000-0.040 [facility]) Comment on above: Result Comment: Trop onin I reference ranges (01/25/14): 0.00-0.040 ng/mL Negative and non-diagnostic. >0.040 ng/mL Consistent with cardiac damage, increased clinical risk and possibility of myocardial infarction. Serial measurements, a rise & fall in test results, clinical history, appropriate symptoms and/or ECG changes may help assess possibility of NC. *Other non-acute coronary syndrome conditions such as CHF, myocarditis, pulmonary emboli, sepsis and cardiac surgery could result in myocardial damage and increased troponin levels. Performed By: #### T KHAI #### [place] [id number] TSHon 11-19-2019 TSH Qn 0.150 mcIU/mL Low 0.360-3.740 [facility] ([place] Comment on above: Performed By: #### T KHAI #### [place] [id number] XR CHEST 1 VIEWon 11-19-2019 XR CHEST [...] Date: 11/19/2019 3:25:16 PM Ordering Provider:Jonnathan Johnson [facility]) Acetm Level W/ doseon 2019 Acetaminophen [Mass/Vol] <2.0 Low 10.0-30.0 [facility] Comment on above: Performed By: #### A CETM #### [address] [address] CBC w/Auto Differentialon Anemia BALANCE RECESSER Normal [facility] Comment on above: Performed By: #### C BC #### [facility] [place] [address] [place] [address] Anisocytosis Ql (Bld) BALANCE RECESSER Normal [facility] Comment on above: Performed By: #### C BC #### [facility] [place] [address] [place] [address] Basophils Abs. # 0.0 K/uL Normal 0.0-0.1 [facility] Comment on above: Performed By: #### C BC #### [facility] [place] [address] [place] [address] Basophils/100 WBC (Bld) 0.3 % Normal 0.2-1.0 [facility] Comment on above: Performed By: #### C BC #### [facility] [place] [address] [place] [address] Basophils/100 WBC (Bld) BALANCE RECESSER Normal [facility] Comment on above: Performed By: #### C BC #### [facility] [place] [address] [place] [address] Bosophillia # BALANCE RECESSER Normal [facility] Comment on above: Performed By: #### C BC #### [facility] [place] [address] [place] [address] Eosinophils (Bld) [#/Vol] BALANCE RECESSER Normal [facility] Comment on above: Performed By: #### C BC #### [facility] [place] [address] [place] [address] Eosinophils (Bld) [#/Vol] 0.1 10*3/uL Normal 0.0-0.2 [facility] Comment on above: Performed By: #### C BC #### [facility] [place] [address] [place] [address] Eosinophils/100 WBC (Bld) BALANCE RECESSER Normal [facility] Comment on above: Performed By: #### C BC #### [facility] [place] [address] [place] [address] Eosinophils/100 WBC (Bld) 1.3 % Normal 0.9-2.9 [facility] Comment on above: Performed By: #### C BC #### [facility] [place] [address] [place] [address] Erythocytosis BALANCE RECESSER Normal [facility] Comment on above: Performed By: #### C BC #### [facility] [place] [address] [place] [address] Erythrocyte distribution width (RBC) [Ratio] 14.3 % Normal 11.5-14.5 [facility] Comment on above: Performed By: #### C BC #### [facility] [place] [address] [place] [address] Hematocrit (Bld) [Volume fraction] 32.8 % Low 33.4-46.0 [facility] Comment on above: Performed By: #### C BC #### [facility] [place] [address] [place] [address] Hemoglobin (Bld) [Mass/Vol] 11.3 g/dL Normal 11.1-13.7 [facility] Comment on above: Performed By: #### C BC #### [facility] [place] [address] [place] [address] Hypochromia BALANCE RECESSER Normal [facility] Comment on above: Performed By: #### C BC #### [facility] [place] [address] [place] [address] Large Platelets BALANCE RECESSER Normal [facility] Comment on above: Performed By: #### C BC #### [facility] [place] [address] [place] [address] Leukocytosis BALANCE RECESSER Normal [facility] Comment on above: Performed By: #### C BC #### [facility] [place] [address] [place] [address] Leukopenia BALANCE RECESSER Normal [facility] Comment on above: Performed By: #### C BC #### [facility] [place] [address] [place] [address] Lymphocytes (Bld) [#/Vol] 1.3 10*3/uL Normal 1.3-2.9 [facility] Comment on above: Performed By: #### C BC #### [facility] [place] [address] [place] [address] Lymphocytes (Bld) [#/Vol] BALANCE RECESSER Normal [facility] Comment on above: Performed By: #### C BC #### [email or web address] [place] [address] [place] [address] Lymphocytes/100 WBC (Bld) 21.8 % Normal 17.0-45.5 [facility] Comment on above: Performed By: #### C BC #### [email or web address] [place] [address] [place] [address] Lymphocytes/100 WBC (Bld) BALANCE RECESSER Normal [facility] Comment on above: Performed By: #### C BC #### [facility] [place] [address] [place] [address] Lymphocytosis # BALANCE RECESSER Normal [facility] Comment on above: Performed By: #### C BC #### [email or web address] [place] [address] [place] [address] Lymphocytosis % BALANCE RECESSER Normal [facility] Comment on above: Performed By: #### C BC #### [facility] [address] [place] [address] Macrocytosis BALANCE RECESSER Normal [facility] Comment on above: Performed By: #### C BC #### [facility] [address] [place] [address] MCH (RBC) [Entitic mass] 31.1 pg High 27.0-31.0 [facility] Comment on above: Performed By: #### C BC #### [facility] [address] [place] [address] MCHC (RBC) [Mass/Vol] 34.5 g/dL Normal 33.0-37.0 [facility] Comment on above: Performed By: #### C BC #### [facility] [address] [facility] [place] [address] MCV (RBC) [Entitic vol] 90.2 fL Normal 81.0-99.0 [facility] Comment on above: Performed By: #### C BC #### [facility] [address] [place] [address] Microcytosis BALANCE RECESSER Normal [facility] Comment on above: Performed By: #### C BC #### [facility] [address] [facility] [place] [address] Monocytes (Bld) [#/Vol] 0.4 10*3/uL Normal 0.3-0.8 [facility] Comment on above: Performed By: #### C BC #### [facility] [address] [place] [address] Monocytes/100 WBC (Bld) 7.3 % Normal 5.5-11.7 C [facility] Comment on above: Performed By: #### C BC #### [facility] [place] [address] [place] [address] Monocytosis % BALANCE RECESSER Normal [facility] Comment on above: Performed By: #### C BC #### [facility] [place] [address] [place] [address] Neutropenia # BALANCE RECESSER Normal [facility] Comment on above: Performed By: #### C BC #### [facility] [place] [address] [place] [address] Neutropenia % BALANCE RECESSER Normal [facility] Comment on above: Performed By: #### C BC #### [facility] [place] [address] [place] [address] Neutrophils (Bld) [#/Vol] BALANCE RECESSER Normal [facility] Comment on above: Performed By: #### C BC #### [facility] [place] [address] [place] [address] Neutrophils Abs. # 4.2 K/uL Normal 2.2-4.8 [facility] Comment on above: Performed By: #### C BC #### [facility] [place] [address] [place] [address] Neutrophils/100 WBC (Bld) 69.3 % High 43.0-65.0 [facility] Comment on above: Performed By: #### C BC #### [facility] [place] [address] [place] [address] Neutrophils/100 WBC (Bld) BALANCE RECESSER Normal [facility] Comment on above: Performed By: #### C BC #### [facility] [place] [address] [place] [address] Nucleated RBC (Bld) [#/Vol] 0.0 10*3/uL Normal [facility] Comment on above: Performed By: #### C BC #### [email or web address] [place] [address] [place] [address] Nucleated RBC/100 WBC (Bld) [Ratio] 0.0 % Normal [facility] Comment on above: Performed By: #### C BC #### [facility] [place] [address] [place] [place] [address] Pancytopenia BALANCE RECESSER Normal [facility] Comment on above: Performed By: #### C BC #### [email or web address] [place] [address] [place] [place] [address] Platelet mean volume (Bld) [Entitic vol] 7.6 fL Normal 7.4-10.4 [facility] Comment on above: Performed By: #### C BC #### [facility] [place] [address] [place] [address] Platelets (Bld) [#/Vol] 217 10*3/uL Normal 148-402 [facility] Comment on above: Performed By: #### C BC #### [email or web address] [place] [address] [place] [place] [address] Poikilocytosis BALANCE RECESSER Normal [facility] Comment on above: Performed By: #### C BC #### [email or web address] [place] [address] [place] [place] [address] RBC (Bld) [#/Vol] 3.63 10*6/uL Low 3.83-5.19 [facility] Comment on above: Performed By: #### C BC #### [facility] [place] [address] [place] [address] Small Platelets BALANCE RECESSER Normal [facility] Comment on above: Performed By: #### C BC #### [facility] [place] [address] [place] [address] Thrombocytopenia BALANCE RECESSER Normal [facility] Comment on above: Performed By: #### C BC #### [facility] [place] [address] [place] [address] Thrombocytopenia. BALANCE RECESSER Normal [facility] Comment on above: Performed By: #### C BC #### [facility] [place] [address] [place] [address] Thrombocytosis BALANCE RECESSER Normal [facility] Comment on above: Performed By: #### C BC #### [facility] [place] [address] [place] [address] WBC (Bld) [#/Vol] 6.1 10*3/uL Normal 3.6-10.8 [facility] Comment on above: Performed By: #### C BC #### [facility] [place] [address] [place] [address] CHEST APon 11-18-2019 CHEST AP EXAMINATION: ONE XRAY VIEW OF THE CHEST 11/18/2019 4:31 pm COMPARISON: None. HISTORY: ORDERING SYSTEM PROVIDED HISTORY: palpitations FINDINGS: The lungs are without acute focal process. There is no effusion or pneumothorax. The cardiomediastinal silhouette is without acute process. The osseous structures are without acute process. IMPRESSION: No acute process. Normal [facility] Comprehensive Metabolic Pane roseanne 11-18-2019 Albumin [Mass/Vol] 3.3 g/dL Low 3.4-5.0 [facility] Comment on above: Performed By: #### C MP #### [facility] [place] [address] [place] [address] Albumin/Globulin [Mass ratio] 0.9 {ratio} Low 1.1-2.5 [facility] Comment on above: Performed By: #### C MP #### [facility] [place] [address] [facility] [place] [address] ALP [Catalytic activity/Vol] 44 U/L Low 54-112 [facility] Comment on above: Performed By: #### C MP #### [facility] [place] [address] [place] [place] [address] ALT [Catalytic activity/Vol] 32 U/L Normal 13-66 [facility] Comment on above: Performed By: #### C MP #### [facility] [place] [address] [place] [place] [address] Anion gap [Moles/Vol] 9.9 mmol/L Normal 8.0-16.0 [facility] Comment on above: Performed By: #### C MP #### [facility] [address] [place] [address] AST [Catalytic activity/Vol] 24 U/L Normal 3-39 [facility] Comment on above: Performed By: #### C MP #### [facility] [address] [place] [address] Bilirubin Ql (U) 0.69 mg/dL Normal 0.00-0.99 [facility] Comment on above: Performed By: #### C MP #### [facility] [address] [place] [place] [address] Calcium [Mass/Vol] 8.6 mg/dL Normal 8.2-10.0 [facility] Comment on above: Performed By: #### C MP #### [facility] [address] [place] [address] Chloride [Moles/Vol] 106 mmol/L Normal 94-110 [facility] Comment on above: Performed By: #### C MP #### [facility] [address] [place] [address] CO2 [Moles/Vol] 30 mmol/L Normal 21-34 [facility] Comment on above: Performed By: #### C MP #### [facility] [address] [place] [address] Creatinine [Mass/Vol] 0.62 mg/dL Normal 0.51-0.95 [facility] Comment on above: Performed By: #### C MP #### [facility] [address] [place] [address] GFR/1.73 sq M predicted among blacks MDRD (S/P/Bld) [Vol rate/Area] mL/min/{1.73_m2} Normal >60 [facility] Comment on above: Result Comment: Coroner Transport Technician belem Kidney Disease less than 60 mL/min/1.73 m2 Kidney Failure less than 15 mL/min/1.73 m2 Average estimated GFR by age: 20-29 years 116 mL/min/1.73 m2 Performed By: #### C MP #### [facility] [address] [place] [address] GFR/1.73 sq M predicted among non-blacks MDRD (S/P/Bld) [Vol rate/Area] mL/min/{1.73_m2} Normal >60 [facility] Comment on above: Performed By: #### C MP #### [facility] [address] [place] [address] Globulin (S) [Mass/Vol] 3.5 g/dL Normal 1.5-4.5 [facility] Comment on above: Performed By: #### C MP #### [facility] [address] [place] [address] Glucose [Mass/Vol] 90 mg/dL Normal 65-100 [facility] Comment on above: Performed By: #### C MP #### [facility] [place] [address] [place] [address] Potassium [Moles/Vol] 3.9 mmol/L Normal 3.3-5.1 [facility] Comment on above: Performed By: #### C MP #### [facility] [address] [place] [address] Protein [Mass/Vol] 6.8 g/dL Normal 6.1-8.2 [facility] Comment on above: Performed By: #### C MP #### [facility] [address] [place] [address] Sodium [Moles/Vol] 142 mmol/L Normal 132-145 [facility] Comment on above: Performed By: #### C MP #### [facility] [address] [place] [address] Urea nitrogen [Mass/Vol] 8.9 mg/dL Normal 3.2-26.9 [facility] Comment on above: Performed By: #### C MP #### [facility] [address] [place] [address] Urea nitrogen/Creatinine [Mass ratio] 14 mg/mg Normal 6-20 [facility] Comment on above: Performed By: #### C MP #### [facility] [address] [place] [address] Ethanol (Medical)on 11-18-19 20 Ethanol [Mass/Vol] mg/dL Normal 0.0-0.0 [facility] Comment on above: Performed By: #### A LC #### [facility] [address] [place] [address] HCG Quanton 11-18-2019 HCG Quant <1 Normal [facility] Comment on above: Result Comment: Expe cted values for Quantitative HCG Assay: Years Range Male 19-83 0-2 mIU/mL Non- female 22-87 0-6 mIU/mL Maxium level of 5,000 to 200,000 mIU/mL is reached at 10-12wks. Levels decline slowly to 1,000-50,000 during 3rd trimester.wks. Please note reference range change Effective: 06-04-03 Performed By: #### H CGQ #### [facility] [place] [address] [place] [address] Magnesiumon 11-18-2019 Magnesium [Mass/Vol] 1.7 mg/dL Normal 1.3-2.3 [facility] Comment on above: Performed By: #### C BC #### [facility] [address] [place] [address] Phosphoruson 11-18-2019 Phosphate [Mass/Vol] 3.4 mg/dL Normal 2.5-4.9 [facility] Comment on above: Performed By: #### C BC #### [facility] [address] [place] [address] Salic Level W/ doseon 2019 Salicylate <2.8 Normal 2.8-20.0 [facility] Comment on above: Performed By: #### S ALIC #### [facility] [address] [place] [address] Troponin ion 11-18-2019 Troponin I.cardiac [Mass/Vol] ng/mL Normal 0.000-0.056 [facility] Comment on above: Result Comment: myocardial [...] guidelines and the third universal definition of NC. The 2012 Third Ralph Definition of NC defines a positive troponin as an elevation [...] specimen. Performed By: #### L TROP #### [facility] [place] [address] [place] [address] UA w/reflex cultureon 2019 Appearance (U) CLEAR Normal Clear [facility] Comment on above: Performed By: #### C BC #### [facility] [place] [address] [place] [address] Bilirubin Ql (U) Negative Normal Negative [facility] Comment on above: Performed By: #### C BC #### [email or web address] [place] [address] [place] [address] Blood Negative Normal Negative [facility] Comment on above: Performed By: #### C BC #### [email or web address] [place] [address] [place] [address] Color (U) P. YELLOW Normal Yellow [facility] Comment on above: Performed By: #### C BC #### [facility] [place] [address] [place] [address] Glucose [Mass/Vol] NORMAL Normal Negative [facility] Comment on above: Performed By: #### C BC #### [facility] [place] [address] [place] [address] Ketones Ql (U) Negative Normal Negative [facility] Comment on above: Performed By: #### C BC #### [facility] [place] [address] [place] [address] Leukocytes Esterase TRACE Abnormal Negative [facility] Comment on above: Performed By: #### C BC #### [facility] [place] [address] [place] [address] Nitrite Ql (U) Negative Normal Negative [facility] Comment on above: Performed By: #### C BC #### [facility] [place] [address] [place] [address] pH (U) 8 [pH] Normal [facility] Comment on above: Performed By: #### C BC #### [facility] [place] [address] [place] [address] Protein [Mass/Vol] Negative Normal Negative [facility] Comment on above: Performed By: #### C BC #### [facility] [place] [address] [place] [address] Specific gravity (U) [Rel density] 1.010 Low 1.015-1.025 [facility] Comment on above: Performed By: #### C BC #### [email or web address] [place] [address] [place] [address] Order Comment: Drug Screen Comment No Performed By: #### D RUGR #### [facility] [place] [address] [place] [address] Urobilinogen Qn (U) NORMAL Normal Normal-1.0 [facility] Comment on above: Performed By: #### C BC #### [email or web address] [place] [address] [place] [address] Urine Drug Screeningon 11-17 Amphetamines Ql (U) Negative Normal [facility] Comment on above: Order Comment: Drug Screen Comment No Result Comment: cuto ff 1000 ng/mL Performed By: #### D RUGR #### [facility] [place] [address] [place] [address] Barbiturates Negative Normal [facility] Comment on above: Order Comment: Drug Screen Comment No Result Comment: cuto ff 200 ng/mL Performed By: #### D RUGR #### [facility] [place] [address] [place] [address] Benzodiazepines Ql (U) Negative Normal [facility] Comment on above: Order Comment: Drug Screen Comment No Result Comment: cuto ff 200 ng/mL Performed By: #### D RUGR #### [facility] [place] [address] [place] [address] Cocaine Ql (U) Negative [facility] Comment on above: Order Comment: Drug Screen Comment No Result Comment: cuto ff 300 ng/mL Performed By: #### D RUGR #### [facility] [place] [address] [place] [address] Opiates Ql (U) Negative [facility] Comment on above: Order Comment: Drug Screen Comment No Result Comment: cuto ff 300 ng/mL Performed By: #### D RUGR #### [facility] [place] [address] [place] [address] pH (Bld) 8.0 Normal 5.0-8.0 [facility] Comment on above: Order Comment: Drug Screen Comment No Performed By: #### D RUGR #### [facility] [place] [address] [place] [address] Phencyclidine Ql (U) Negative Normal [facility] Comment on above: Order Comment: Drug Screen Comment No Result Comment: cuto ff 25 ng/mL Performed By: #### D RUGR #### [facility] [place] [address] [place] [address] THC Negative [facility] Comment on above: Order Comment: Drug Screen Comment No Result Comment: cuto ff 50 ng/mL Performed By: #### D RUGR #### [facility] [address] [place] [address] - - Normal [facility] Comment on above: Order Comment: Drug Screen Comment No Result Comment: . Drug Screen Comment: This assay provides a preliminary unconfirmed analytical test result that may be suitable for the clinical management of patients in certain situations. Some [id number] medications, as well as adulterants, may cause inaccurate results. Screen only testing does not meet the [facility] Forensic Urine Drug Testing Program requirements as a forensic urine drug test for workplace testing. . Performed By: #### D RUGR #### [facility] [address] [place] [address] Urine Microscopicon 11-18-19 20 Bacteria LM.HPF (Urine sed) [#/Area] BALANCE RECESSER Normal 0 - 1+ [facility] Comment on above: Performed By: #### C BC #### [facility] [address] [place] [address] Casts LM.LPF (Urine sed) [#/Area] BALANCE RECESSER Normal [facility] Comment on above: Performed By: #### C BC #### [facility] [address] [place] [address] Crystals LM Nom (Urine sed) BALANCE RECESSER Normal [facility] Comment on above: Performed By: #### C BC #### [facility] [address] [place] [address] Crystals LM Nom (Urine sed) Rare Amorphous Normal [facility] Comment on above: Performed By: #### C BC #### [facility] [address] [place] [address] Epithelial cells LM.HPF (Urine sed) [#/Area] 0-2 Normal 0 - 6 [facility] Comment on above: Performed By: #### C BC #### [email or web address] [place] [address] [place] [address] Mucus Ql (Urine sed) BALANCE RECESSER Normal [facility] Comment on above: Performed By: #### C BC #### [facility] [place] [address] [place] [address] RBC (U) [#/Vol] None Seen Normal 0 - 2 [facility] Comment on above: Performed By: #### C BC #### [facility] [place] [address] [place] [address] Trichomonas BALANCE RECESSER Normal [facility] Comment on above: Performed By: #### C BC #### [facility] [place] [address] [place] [address] WBC (Bld) [#/Vol] 0-2 Normal 0 - 6 [facility] Comment on above: Performed By: #### C BC #### [facility] [place] [address] [place] [address] Yeast LM Ql (Urine sed) BALANCE RECESSER Normal [facility] Comment on above: Performed By: #### C BC #### [facility] [place] [address] [place] [address] Other BALANCE RECESSER Normal [facility] Comment on above: Performed By: #### C BC #### [facility] [place] [address] [place] [address] CBC w/Auto Differentialon Anemia BALANCE RECESSER Normal [facility] Comment on above: Performed By: #### C BC #### [facility] [place] [address] [place] [address] Anisocytosis Ql (Bld) BALANCE RECESSER Normal [facility] Comment on above: Performed By: #### C BC #### [facility] [place] [address] [place] [address] Basophils Abs. # 0.0 K/uL Normal 0.0-0.1 [facility] Comment on above: Performed By: #### C BC #### [facility] [place] [address] [place] [address] Basophils/100 WBC (Bld) 0.5 % Normal 0.2-1.0 [facility] Comment on above: Performed By: #### C BC #### [facility] [place] [address] [place] [address] Basophils/100 WBC (Bld) BALANCE RECESSER Normal [facility] Comment on above: Performed By: #### C BC #### [facility] [place] [address] [place] [address] Bosophillia # BALANCE RECESSER [facility] Comment on above: Performed By: #### C BC #### [facility] [place] [address] [place] [address] Eosinophils (Bld) [#/Vol] BALANCE RECESSER Normal [facility] Comment on above: Performed By: #### C BC #### [facility] [place] [address] [place] [address] Eosinophils (Bld) [#/Vol] 0.0 10*3/uL Normal 0.0-0.2 [facility] Comment on above: Performed By: #### C BC #### [facility] [place] [address] [place] [address] Eosinophils/100 WBC (Bld) BALANCE RECESSER [facility] Comment on above: Performed By: #### C BC #### [facility] [place] [address] [place] [address] Eosinophils/100 WBC (Bld) 0.3 % Low 0.9-2.9 [facility] Comment on above: Performed By: #### C BC #### [facility] [place] [address] [facility] [place] [address] Erythocytosis BALANCE RECESSER Normal [facility] Comment on above: Performed By: #### C BC #### [facility] [place] [address] [place] [address] Erythrocyte distribution width (RBC) [Ratio] 14.7 % High 11.5-14.5 [facility] Comment on above: Performed By: #### C BC #### [facility] [place] [address] [place] [address] Hematocrit (Bld) [Volume fraction] 37.5 % Normal 33.4-46.0 [facility] Comment on above: Performed By: #### C BC #### [facility] [place] [address] [place] [address] Hemoglobin (Bld) [Mass/Vol] 12.9 g/dL Normal 11.1-13.7 [facility] Comment on above: Performed By: #### C BC #### [facility] [place] [address] [place] [address] Hypochromia BALANCE RECESSER Normal [facility] Comment on above: Performed By: #### C BC #### [facility] [place] [address] [place] [address] Large Platelets BALANCE RECESSER Normal [facility] Comment on above: Performed By: #### C BC #### [facility] [place] [address] [place] [address] Leukocytosis BALANCE RECESSER Normal [facility] Comment on above: Performed By: #### C BC #### [facility] [place] [address] [place] [address] Leukopenia BALANCE RECESSER Normal [facility] Comment on above: Performed By: #### C BC #### [facility] [place] [address] [place] [address] Lymphocytes (Bld) [#/Vol] 1.4 10*3/uL Normal 1.3-2.9 [facility] Comment on above: Performed By: #### C BC #### [facility] [place] [address] [place] [address] Lymphocytes (Bld) [#/Vol] BALANCE RECESSER Normal [facility] Comment on above: Performed By: #### C BC #### [facility] [place] [address] [facility] [place] [address] Lymphocytes/100 WBC (Bld) BALANCE RECESSER Normal [facility] Comment on above: Performed By: #### C BC #### [facility] [place] [address] [place] [address] Lymphocytes/100 WBC (Bld) 27.6 % Normal 17.0-45.5 [facility] Comment on above: Performed By: #### C BC #### [facility] [place] [address] [place] [address] Lymphocytosis # BALANCE RECESSER Normal [facility] Comment on above: Performed By: #### C BC #### [facility] [place] [address] [place] [address] Lymphocytosis % BALANCE RECESSER Normal [facility] Comment on above: Performed By: #### C BC #### [facility] [place] [address] [place] [address] Macrocytosis BALANCE RECESSER Normal [facility] Comment on above: Performed By: #### C BC #### [facility] [place] [address] [place] [address] MCH (RBC) [Entitic mass] 30.8 pg Normal 27.0-31.0 [facility] Comment on above: Performed By: #### C BC #### [facility] [place] [address] [place] [address] MCHC (RBC) [Mass/Vol] 34.3 g/dL Normal 33.0-37.0 [facility] Comment on above: Performed By: #### C BC #### [facility] [address] [place] [address] MCV (RBC) [Entitic vol] 89.8 fL Normal 81.0-99.0 [facility] Comment on above: Performed By: #### C BC #### [facility] [address] [place] [address] Microcytosis BALANCE RECESSER Normal [facility] Comment on above: Performed By: #### C BC #### [facility] [address] [facility] [place] [address] Monocytes (Bld) [#/Vol] 0.4 10*3/uL Normal 0.3-0.8 [facility] Comment on above: Performed By: #### C BC #### [facility] [address] [place] [address] Monocytes/100 WBC (Bld) 7.4 % Normal 5.5-11.7 [facility] Comment on above: Performed By: #### C BC #### [facility] [address] [place] [address] Monocytosis % BALANCE RECESSER Normal [facility] Comment on above: Performed By: #### C BC #### [facility] [place] [address] [place] [address] Neutropenia # BALANCE RECESSER Normal [facility] Comment on above: Performed By: #### C BC #### [facility] [place] [address] [place] [address] Neutropenia % BALANCE RECESSER Normal [facility] Comment on above: Performed By: #### C BC #### [facility] [place] [address] [place] [address] Neutrophils (Bld) [#/Vol] BALANCE RECESSER Normal [facility] Comment on above: Performed By: #### C BC #### [facility] [place] [address] [place] [address] Neutrophils Abs. # 3.3 K/uL Normal 2.2-4.8 [facility] Comment on above: Performed By: #### C BC #### [facility] [place] [address] [place] [address] Neutrophils/100 WBC (Bld) BALANCE RECESSER Normal [facility] Comment on above: Performed By: #### C BC #### [facility] [place] [address] [place] [address] Neutrophils/100 WBC (Bld) 64.2 % Normal 43.0-65.0 [facility] Comment on above: Performed By: #### C BC #### [facility] [place] [address] [place] [address] Nucleated RBC (Bld) [#/Vol] 0.0 10*3/uL Normal [facility] Comment on above: Performed By: #### C BC #### [facility] [place] [address] [place] [address] Nucleated RBC/100 WBC (Bld) [Ratio] 0.0 % Normal [facility] Comment on above: Performed By: #### C BC #### [email or web address] [place] [address] [place] [address] Pancytopenia BALANCE RECESSER Normal [facility] Comment on above: Performed By: #### C BC #### [email or web address] [place] [address] [place] [address] Platelet mean volume (Bld) [Entitic vol] 7.6 fL Normal 7.4-10.4 [facility] Comment on above: Performed By: #### C BC #### [email or web address] [place] [address] [place] [place] [address] Platelets (Bld) [#/Vol] 230 10*3/uL Normal 148-402 [facility] Comment on above: Performed By: #### C BC #### [email or web address] [place] [address] [place] [address] Poikilocytosis BALANCE RECESSER Normal [facility] Comment on above: Performed By: #### C BC #### [email or web address] [place] [address] [place] [address] RBC (Bld) [#/Vol] 4.18 10*6/uL Normal 3.83-5.19 [facility] Comment on above: Performed By: #### C BC #### [email or web address] [place] [address] [place] [address] Small Platelets BALANCE RECESSER Normal [facility] Comment on above: Performed By: #### C BC #### [email or web address] [place] [address] [place] [address] Thrombocytopenia BALANCE RECESSER Normal [facility] Comment on above: Performed By: #### C BC #### [facility] [place] [address] [place] [address] Thrombocytopenia. BALANCE RECESSER Normal [facility] Comment on above: Performed By: #### C BC #### [facility] [address] [place] [address] Thrombocytosis BALANCE RECESSER Normal [facility] Comment on above: Performed By: #### C BC #### [facility] [address] [place] [address] WBC (Bld) [#/Vol] 5.1 10*3/uL Normal 3.6-10.8 [facility] Comment on above: Performed By: #### C BC #### [facility] [address] [place] [address] Comprehensive Metabolic Pane roseanne 11-09-2019 Albumin [Mass/Vol] 4.1 g/dL Normal 3.4-5.0 [facility] Comment on above: Performed By: #### C MP #### [facility] [address] [place] [address] Albumin/Globulin [Mass ratio] 1.1 {ratio} Normal 1.1-2.5 [facility] Comment on above: Performed By: #### C MP #### [facility] [address] [place] [address] ALP [Catalytic activity/Vol] 52 U/L Low 54-112 [facility] Comment on above: Performed By: #### C MP #### [facility] [address] [place] [address] ALT [Catalytic activity/Vol] 17 U/L Normal 13-66 [facility] Comment on above: Performed By: #### C MP #### [facility] [address] [place] [address] Anion gap [Moles/Vol] 11.8 mmol/L Normal 8.0-16.0 [facility] Comment on above: Performed By: #### C MP #### [facility] [place] [address] [place] [address] AST [Catalytic activity/Vol] 15 U/L Normal 3-39 [facility] Comment on above: Performed By: #### C MP #### [facility] [address] [place] [address] Bilirubin Ql (U) 0.83 mg/dL Normal 0.00-0.99 [facility] Comment on above: Performed By: #### C MP #### [facility] [address] [place] [address] Calcium [Mass/Vol] 8.7 mg/dL Normal 8.2-10.0 [facility] Comment on above: Performed By: #### C MP #### [facility] [address] [place] [address] Chloride [Moles/Vol] 107 mmol/L Normal 94-110 [facility] Comment on above: Performed By: #### C MP #### [facility] [address] [place] [address] CO2 [Moles/Vol] 28 mmol/L Normal 21-34 [facility] Comment on above: Performed By: #### C MP #### [facility] [address] [place] [place] [address] Creatinine [Mass/Vol] 0.80 mg/dL Normal 0.51-0.95 [facility] Comment on above: Performed By: #### C MP #### [facility] [address] [place] [address] GFR/1.73 sq M predicted among blacks MDRD (S/P/Bld) [Vol rate/Area] mL/min/{1.73_m2} Normal >60 [facility] Comment on above: Result Comment: Coroner Transport Technician belem Kidney Disease less than 60 mL/min/1.73 m2 Kidney Failure less than 15 mL/min/1.73 m2 Average estimated GFR by age: 20-29 years 116 mL/min/1.73 m2 Performed By: #### C MP #### [email or web address] [address] [place] [address] GFR/1.73 sq M predicted among non-blacks MDRD (S/P/Bld) [Vol rate/Area] mL/min/{1.73_m2} Normal >60 [facility] Comment on above: Performed By: #### C MP #### [email or web address] [address] [place] [address] Globulin (S) [Mass/Vol] 3.6 g/dL Normal 1.5-4.5 [facility] Comment on above: Performed By: #### C MP #### [email or web address] [address] [place] [address] Glucose [Mass/Vol] 91 mg/dL Normal 65-100 [facility] Comment on above: Performed By: #### C MP #### [facility] [address] [place] [address] Potassium [Moles/Vol] 3.8 mmol/L Normal 3.3-5.1 [facility] Comment on above: Performed By: #### C MP #### [email or web address] [address] [place] [address] Protein [Mass/Vol] 7.7 g/dL Normal 6.1-8.2 [facility] Comment on above: Performed By: #### C MP #### [email or web address] [address] [place] [address] Sodium [Moles/Vol] 143 mmol/L Normal 132-145 [facility] Comment on above: Performed By: #### C MP #### [facility] [address] [place] [address] Urea nitrogen [Mass/Vol] 11.8 mg/dL Normal 3.2-26.9 [facility] Comment on above: Performed By: #### C MP #### [facility] [address] [place] [address] Urea nitrogen/Creatinine [Mass ratio] 15 mg/mg Normal 6-20 [facility] Comment on above: Performed By: #### C MP #### [facility] [address] [place] [address] [facility] 10-05-2019 [facility] Chlamy trachomatis, KATELYNN = Negative Neiss gonorrhoeae, KATELYNN = Negative Performed at: =[address] [id number] Union Representative: Luz Marina Sherman MD, Phone: [phone] Source Chlamy/GC Amp = urine Normal [facility] Comment on above: Performed By: #### M IC2 #### [facility] [address] [place] [address] [facility] 09-14-2019 Erythrocyte distribution width (RBC) [Ratio] 12.8 % 11.5 - 14.5 % [facility] Hematocrit (Bld) [Volume fraction] 41.8 % 33.6 - 46.8 % [facility] Hemoglobin (Bld) [Mass/Vol] 13.7 g/dL 11.7 - 15.8 g/dL [facility] MCH (RBC) [Entitic mass] 29.7 pg 27.5 - 32.3 pg [facility] MCHC (RBC) [Mass/Vol] 32.8 g/dL 30.7 - 35.5 g/dl [facility] MCV (RBC) [Entitic vol] 90.7 fL 80.2 - 99 fL [facility] Platelets (Bld) [#/Vol] 245.0 10*3/uL [facility] RBC (Bld) [#/Vol] 4.61 10*6/uL [facility] WBC LM Ql (Sput) 5.2 [facility] Comprehensive metabolic pane l aka [facility] 09-14-2019 Albumin [Mass/Vol] 4.5 g/dL 3.5 - 5 g/dL [facility] Alk Phos 40 U/L 24 - 126 U/L [facility] ALT [Catalytic activity/Vol] 15 U/L 9 - 52 U/L [facility] AST [Catalytic activity/Vol] 17 U/L 3 - 47 U/L [facility] Bilirubin [Mass/Vol] 0.6 mg/dL 0.2 - 1 .6 mg/dL [facility] Calcium [Mass/Vol] 10.0 mg/dL 8.4 - 10. 4 mg/dL [facility] Chloride [Moles/Vol] 107 mmol/L 96 - 10 9 mmol/L [facility] CO2 [Moles/Vol] 22 mmol/L 22 - 30 mmol/L [facility] Comprehensive metabolic 2000 panel 0.86 mg/dL 0.52 - 1.04 mg/dL [facility] Glucose [Mass/Vol] 121 mg/dL High 65 - 100 mg/dL [facility] Interpretation and review of laboratory results Abnormal [facility] Potassium [Moles/Vol] 3.8 mmol/L 3.6 - 5.1 mmol/L [facility] Protein [Mass/Vol] 7.8 g/dL 6.3 - 8.2 g/dL [facility] Sodium [Moles/Vol] 142 mmol/L 135 - 147 mmol/L [facility] Urea nitrogen [Mass/Vol] 11 mg/dL 8 - 20 mg/dL [facility] GLOMERULAR FILTRATION RATEon 09-14-2019 GFR/1.73 sq M.predicted MDRD (S/P/Bld) [Vol rate/Area] mL/min/{1.73_m2} [facility] Comment on above: To estimate the GFR [...] 08-19 HAV IgM Qn (S) Nonreactive Nonreactive [facility] HCV Ab Qn (S) Nonreactive Nonreactive [facility] Hep B Core-M AB Nonreactive Nonreactive [facility] Hep B Surf AG Nonreactive Nonreactive [facility] HIV-1 and HIV-2 antibodieson 09-14-2019 HIV 1+2 Ab Ql (S) Nonreactive Nonreactive [facility] Comment on above: Nonreactive No detectable HIV-1p24 Antigen or HIV-1/HIV2 antibodies Syphilis Treponema Antibodyo n 09-14-2019 Syphilis Treponema Antibody Nonreactive Nonreactive [facility] Vital Signs Date Time Vital Sign Value Performing Clinician Facility 12-11-2024 09:30-0400 Body temperature 98.2 [degF] Dr. Odin Abraham MD Work Phone: [facility] 12-11-2024 09:30-0400 Diastolic blood pressure 69 mm[Hg] Dr. Odin Abraham MD Work Phone: [facility] 12-11-2024 09:30-0400 Heart rate 94 /min Dr. Odin Abraham MD Work Phone: [facility] 12-11-2024 09:30-0400 Respiratory rate 16 /min Dr. Odin Abraham MD Work Phone: [facility] 12-11-2024 09:30-0400 SaO2% (BldA) [Mass fraction] 96 % Dr. Odin Abraham MD Work Phone: [facility] 12-11-2024 09:30-0400 Systolic blood pressure 117 mm[Hg] Dr. Odin Abraham MD Work Phone: [facility] 12-08-2024 15:23-0400 Body height [address] Odin Abraham MD Work Phone: [facility] 12-08-2024 15:23-0400 Body weight 67.[address] Odin Abraham MD Work Phone: [facility] 12-08-2024 00:30-0400 Body mass index (BMI) [Ratio] 21.2 kg/m2 Dr. Odin Abraham MD Work Phone: [facility] 12-07-2024 23:00-0400 Respiratory rate 20 /min Dr. Odin Abraham MD Work Phone: [facility] 12-07-2024 23:00-0400 SaO2% (BldA) [Mass fraction] 100 % Dr. Odin Abraham MD Work Phone: [facility] 12-07-2024 22:00-0400 Diastolic blood pressure 77 mm[Hg] Dr. Odin Abraham MD Work Phone: [facility] 12-07-2024 22:00-0400 Systolic blood pressure 122 mm[Hg] Dr. Odin Abraham MD Work Phone: [facility] 12-07-2024 21:27-0400 Body temperature 97.9 [degF] Dr. Odin Abraham MD Work Phone: [facility] 12-07-2024 21:27-0400 Heart rate 88 /min Dr. Odin Abraham MD Work Phone: [facility] 12-07-2024 19:27-0400 Body height 177.[address] Odin Abraham MD Work Phone: [facility] 12-07-2024 19:27-0400 Body mass index (BMI) [Ratio] 21.4 kg/m2 Dr. Odin Abraham MD Work Phone: [facility] 12-07-2024 19:27-0400 Body weight 67.[address] Odin Abraham MD Work Phone: [facility] 10-26-2024 18:48-0400 Body mass index (BMI) [Ratio] 23.15 kg/m2 Catie Sandra PUBLIC TRANSIT SPECIALIST.[employer]ISHER [employer] Work Phone: [facility] 10-26-2024 18:48-0400 Body temperature 97.59 [degF] Catie Sandra PUBLIC TRANSIT SPECIALIST.FISHER [employer]SEL Work Phone: [facility] 10-26-2024 18:48-0400 Body weight 70.6 kg Catie Sandra PUBLIC TRANSIT SPECIALIST.FISHER [employer] Work Phone: [facility] 10-26-2024 18:48-0400 Diastolic blood pressure 82 mm[Hg] Catie Sandra PUBLIC TRANSIT SPECIALIST.FISHER [employer]SEL Work Phone: [facility] 10-26-2024 18:48-0400 Heart rate 101 /min Catie Sandra PUBLIC TRANSIT SPECIALIST.FISHER [employer] Work Phone: [facility] 10-26-2024 18:48-0400 Respiratory rate 18 /min Catie Sandra PUBLIC TRANSIT SPECIALIST.FISHER [employer]SEL Work Phone: [facility] 10-26-2024 18:48-0400 SaO2% (BldA) [Mass fraction] 99 % Catie Sandra PUBLIC TRANSIT SPECIALIST.FISHER [employer]SEL Work Phone: [facility] 10-26-2024 18:48-0400 Systolic blood pressure 132 mm[Hg] Catie Sandra PUBLIC TRANSIT SPECIALIST.FISHER [employer]SEL Work Phone: [facility] 04-14-2024 17:00-0500 Body mass index (BMI) [Ratio] 27.48 kg/m2 Tucker Claus PUBLIC TRANSIT SPECIALIST.FISHER [employer] Work Phone: [facility] 04-14-2024 17:00-0500 Body temperature 98.1 [degF] Tucker Claus PUBLIC TRANSIT SPECIALIST.F[employer]ER [employer] Work Phone: [facility] 04-14-2024 17:00-0500 Body weight 83.8 kg Tuckerazul Devlin PUBLIC TRANSIT SPECIALIST.F[employer]ER [employer] Work Phone: [facility] 04-14-2024 17:00-0500 Diastolic blood pressure 84 mm[Hg] Tucker Claus PUBLIC TRANSIT SPECIALIST.FISHER [employer]SEL Work Phone: [facility] 04-14-2024 17:00-0500 Heart rate 96 /min Tucker Claus PUBLIC TRANSIT SPECIALIST.FISHER [employer] Work Phone: [facility] 04-14-2024 17:00-0500 Respiratory rate 18 /min Tucker Devlin PUBLIC TRANSIT SPECIALIST.FISHER [employer]SEL Work Phone: [facility] 04-14-2024 17:00-0500 SaO2% (BldA) [Mass fraction] 100 % Tucker Claus PUBLIC TRANSIT SPECIALIST.FISHER [employer]SEL Work Phone: [facility] 04-14-2024 17:00-0500 Systolic blood pressure 129 mm[Hg] Tucker Claus PUBLIC TRANSIT SPECIALIST.FISHER [employer]SEL Work Phone: [facility] 10-07-2023 16:31-0400 Body mass index (BMI) [Ratio] 26.79 kg/m2 Tucker Claus PUBLIC TRANSIT SPECIALIST.FISHER [employer]SEL Work Phone: [facility] 10-07-2023 16:31-0400 Body temperature 99 [degF] Tucker Claus PUBLIC TRANSIT SPECIALIST.FISHER [employer]SEL Work Phone: [facility] 10-07-2023 16:31-0400 Body weight 81.7 kg Tucker Devlin PUBLIC TRANSIT SPECIALIST.FISHER [employer]SEL Work Phone: [facility] 10-07-2023 16:31-0400 Diastolic blood pressure 80 mm[Hg] Tucker Claus PUBLIC TRANSIT SPECIALIST.FISHER [employer]SEL Work Phone: [facility] 10-07-2023 16:31-0400 Heart rate 98 /min Tucker Claus PUBLIC TRANSIT SPECIALIST.F[employer]ER [employer] Work Phone: [facility] 10-07-2023 16:31-0400 Respiratory rate 18 /min Tucker Claus PUBLIC TRANSIT SPECIALIST.FISHER [employer]SEL Work Phone: [facility] 10-07-2023 16:31-0400 SaO2% (BldA) [Mass fraction] 99 % Tucker Claus PUBLIC TRANSIT SPECIALIST.FISHER [employer]SEL Work Phone: [facility] 10-07-2023 16:31-0400 Systolic blood pressure 122 mm[Hg] Tucker Claus PUBLIC TRANSIT SPECIALIST.FISHER [employer]SEL Work Phone: [facility] 08-07-2023 17:29-0400 Body temperature 98.2 [degF] Vicki Praisler-Wood PUBLIC TRANSIT SPECIALIST.FISHER [employer]SEL Work Phone: [facility] 08-07-2023 17:29-0400 Body weight 82.8 kg Vicki Praisler-Wood PUBLIC TRANSIT SPECIALIST.FISHER [employer]SEL Work Phone: [facility] 08-07-2023 17:29-0400 Diastolic blood pressure 82 mm[Hg] Vicki Praisler-Wood PUBLIC TRANSIT SPECIALIST.FISHER [employer]SEL Work Phone: [facility] 08-07-2023 17:29-0400 Heart rate 105 /min Vicki Praisler-Wood PUBLIC TRANSIT SPECIALIST.FISHER [employer]SEL Work Phone: [facility] 08-07-2023 17:29-0400 Respiratory rate 20 /min Vicki Praisler-Wood PUBLIC TRANSIT SPECIALIST.FISHER [employer]SEL Work Phone: [facility] 08-07-2023 17:29-0400 SaO2% (BldA) [Mass fraction] 98 % Vicki Praisler-Wood PUBLIC TRANSIT SPECIALIST.FISHER [employer]SEL Work Phone: [facility] 08-07-2023 17:29-0400 Systolic blood pressure 134 mm[Hg] Vicki Praisler-Wood PUBLIC TRANSIT SPECIALIST.FISHER [employer]SEL Work Phone: [facility] 05-05-2023 15:21-0500 Body temperature 99.19 [degF] Krislyn Aberegg PA Work Phone: [facility] 05-05-2023 15:21-0500 Body weight 78.47 kg Krislyn Aberegg PA Work Phone: [facility] 05-05-2023 15:21-0500 Diastolic blood pressure 81 mm[Hg] Krislyn Aberegg PA Work Phone: [facility] 05-05-2023 15:21-0500 Heart rate 107 /min Krislyn Aberegg PA Work Phone: [facility] 05-05-2023 15:21-0500 Respiratory rate 20 /min Krislyn Aberegg PA Work Phone: [facility] 05-05-2023 15:21-0500 SaO2% (BldA) [Mass fraction] 100 % Krislyn Aberegg PA Work Phone: [facility] 05-05-2023 15:21-0500 Systolic blood pressure 134 mm[Hg] Krislyn Aberegg PA Work Phone: [facility] 03-26-2023 17:45-0500 Body temperature 98.8 [degF] Barrie Pendlebury PUBLIC TRANSIT SPECIALIST.FISHER [employer]SEL Work Phone: [facility] 03-26-2023 17:45-0500 Body weight 77.47 kg Barrie Juan PUBLIC TRANSIT SPECIALIST.[employer]ER [employer]SEL Work Phone: [facility] 03-26-2023 17:45-0500 Diastolic blood pressure 84 mm[Hg] Barrie Pendlebury PUBLIC TRANSIT SPECIALIST.FISHER [employer]SEL Work Phone: [facility] 03-26-2023 17:45-0500 Heart rate 108 /min Barrie Pendlebury PUBLIC TRANSIT SPECIALIST.FISHER [employer]SEL Work Phone: [facility] 03-26-2023 17:45-0500 Respiratory rate 18 /min Barrie Pendlebury PUBLIC TRANSIT SPECIALIST.FISHER [employer]SEL Work Phone: [facility] 03-26-2023 17:45-0500 SaO2% (BldA) [Mass fraction] 96 % Barrie Martinez PUBLIC TRANSIT SPECIALIST.FISHER [employer]SEL Work Phone: [facility] 03-26-2023 17:45-0500 Systolic blood pressure 138 mm[Hg] Barrie Martinez PUBLIC TRANSIT SPECIALIST.FISHER [employer]SEL Work Phone: [facility] 01-08-2023 10:26-0400 Body weight 76.57 kg Chrissie De Jesus MD Work Phone: [facility] 01-08-2023 10:26-0400 Diastolic blood pressure 76 mm[Hg] Chrissie De Jesus MD Work Phone: [facility] 01-08-2023 10:26-0400 Systolic blood pressure 120 mm[Hg] Chrissie De Jesus MD Work Phone: [facility] 12-31-2022 13:52-0400 Body weight 78.2 kg Terri Pasadena PUBLIC TRANSIT SPECIALIST.FISHER [employer]SEL Work Phone: [facility] 12-31-2022 13:52-0400 Diastolic blood pressure 76 mm[Hg] Terri Kasie PUBLIC TRANSIT SPECIALIST.FISHER [employer]SEL Work Phone: 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 05-28-2022 08:35-0500 Body mass index (BMI) [Ratio] 25.2 kg/m2 Dr. Odin Abraham Work Phone: [facility] 05-28-2022 08:35-0500 Body temperature 98 [degF] Dr. Odin Abraham Work Phone: [facility] 05-28-2022 08:35-0500 Body weight 79.[address] Odin Abraham Work Phone: [facility] 05-28-2022 08:35-0500 Diastolic blood pressure 76 mm[Hg] Dr. Odin Abraham Work Phone: [facility] 05-28-2022 08:35-0500 Heart rate 76 /min Dr. Odin Abraham Work Phone: [facility] 05-28-2022 08:35-0500 Respiratory rate 18 /min Dr. Odin Abraham Work Phone: [facility] 05-28-2022 08:35-0500 SaO2% (BldA) [Mass fraction] 96 % Dr. Odin Abraham Work Phone: [facility] 05-28-2022 08:35-0500 Systolic blood pressure 122 mm[Hg] Dr. Odin Abraham Work Phone: [facility] Encounters Encounter Date Encounter Type Care Provider Facility Start: 12-31-2024 End: 12-31-[address] Odin Abraham MD Work Phone: -Laboratory [facility] Start: 12-31-2024 End: 12-31-2024 Patient encounter procedure [facility] BALANCE RECESSER-C -Laboratory Samra Leigh Start: 12-31-2024 End: 12-31-2024 ambulatory [facility] Facility:[facility] Start: 12-11-2024 Non-patient / Non-visit Dr. Bettie Mlcean MD -[facility] Work Phone: Start: 12-10-2024 Non-patient / Non-visit Dr. Bettie Mclean MD -[facility] Work Phone: Start: 12-09-2024 Non-patient / Non-visit Dr. Bettie Mclean MD [facility] Work Phone: Start: 12-08-2024 Non-patient / Non-visit Dr. Bettie Mclean MD [facility] Work Phone: Start: 12-07-2024 End: 12-11-2024 Evaluation and management of inpatient Dr. Ezio Mclean MD -[facility] 3 Work Phone: Start: 12-07-2024 Non-patient / Non-visit Dr. Yrn houston MD -[facility] Work Phone: Start: 12-07-2024 ambulatory Ezio Mclean Fac ility:[facility] Start: 12-07-2024 Evaluation and management of inpatient Dr. Yrn Yepez MD -[facility] 3 Work Phone: Start: 10-26-2024 End: 10-26-2024 Patient encounter procedure Catie Flores PUBLIC TRANSIT SPECIALIST.FISHER MUSSEL Work Phone: [facility] Comment on above: Redness of skin ([place] mary ann Dx) Start: 10-26-2024 End: 10-26-2024 [facility] Start: 04-18-2024 End: 04-18-2024 ambulatory [facility] Start: 04-14-2024 End: 04-14-2024 ambulatory ODIN LEIGH Facility:[facility] Start: 04-14-2024 End: 04-14-2024 Patient encounter procedure Tucker eDvlin PUBLIC TRANSIT SPECIALIST.FISHER MUSSEL Work Phone: [facility] Comment on above: Sore throat (Primary Dx) Start: 03-17-2024 End: 03-17-2024 ambulatory Odin [place] Facility:[facility] Start: 10-07-2023 End: 10-07-2023 Patient encounter procedure Tucker Devlin PUBLIC TRANSIT SPECIALIST.FISHER MUSSEL Work Phone: [facility] Comment on above: Sore throat (Primary Dx) Start: 08-12-2023 End: 08-12-2023 ambulatory [facility] Start: 08-07-2023 End: 08-07-2023 Patient encounter procedure Vicki Michael PUBLIC TRANSIT SPECIALIST.FISHER MUSSEL Work Phone: [facility] Comment on above: Sore throat (Primary Dx) Start: 05-05-2023 End: 05-05-2023 Patient encounter procedure Antonette MATUTE Work Phone: [facility] Comment on above: URI, acute (Primary Dx); Bacterial sinusitis Start: 03-27-2023 Telephone encounter Delmis solis PA-C Work Phone: [facility] Comment on above: Results Start: 03-26-2023 End: 03-26-2023 Office outpatient visit 15 minutes Barrie Juan MIRANDA.FISHER MUSSEL Work Phone: [facility] Comment on above: Viral illness (Prima ry Dx) Start: 01-08-2023 End: 01-08-2023 Patient encounter procedure Chrissie De Jesus MD Work Phone: OB/Gynecology Comment on above: Encounter for IUD in sertion (Primary Dx); Screen for STD (sexually transmitted disease) Start: 12-31-2022 End: 12-31-2022 Patient encounter procedure Terri Ferro APRN.FISHER MUSSEL Work Phone: OB/Gynecology Comment on above: Encounter for survei llance of contraceptive pills (Primary Dx); Encounter for IUD insertion Start: 08-09-2022 End: 08-09-[address] Odin Abraham Work Phone: [facility] Work Phone: Start: 08-09-2022 End: 08-09-[address] Odin Abraham Work Phone: [facility], [facility] Start: 05-28-2022 End: 05-28-[address] Odin Abraham Work Phone: [facility] Start: 01-16-2021 End: 01-16-2021 Patient encounter status Cheyenne Bautista APRN FISHER MUSSEL Work Phone: [facility] Start: 01-16-2021 End: 01-16-2021 Subsequent hospital visit by physician Cheyenne Bautista APRN FISHER MUSSEL Work Phone: [facility] Comment on above: Encounter for gyneco logical examination without abnormal finding; Screen for STD (sexually transmitted disease); High risk heterosexual behavior Start: 01-04-2020 End: 01-04-2020 Subsequent hospital visit by physician Virginia Vidal Work Phone: [facility] Start: 09-14-2019 End: 09-14-2019 Subsequent hospital visit by physician Estuardo Anna Work Phone: [facility] Comment on above: Arrived Procedures Date Procedure Procedure Detail Performing Clinician Start: 12-31-2024 Hepatitis A virus antibody, IgM type Dr. Odin Abraham MD Work Phone: Comment on above: A negative anti-HAV IgM result suggests no recent orcurrent HAV infection. Start: 12-31-2024 Hepatitis B core antibody measurement, IgM type Dr. Odin Abraham MD Work Phone: Start: 12-31-2024 Hepatitis C antibody measurement Dr. Kulwant Abraham MD Work Phone: Start: 12-31-2024 Serologic test for herpes simplex Dr. Dash CHAUHAN Work Phone: Comment on above: Please note reference interval change* *HSV-1 IgG testing performed using the Tamika Elecsys HSV-1IgG assay. Start: 12-31-2024 Serologic test for syphilis Dr. Odin peter MD Work Phone: Start: 12-31-2024 Liquid based cervical cytology screening Dr. Odin Abraham MD Work Phone: Comment on above: NEGATIVE FOR INTRAEPITHELIAL LESION OR M ALIGNANCY.TRICHOMONAS VAGINALIS IS PRESENT. This liquid based Th inPrep(R) pap test was screened withthe use of an image guided system. Start: 12-31-[address] Odin Abraham MD Work Phone: Comment on above: Test Ordered: [id number] NuSwab Vaginitis Pl us (VG+)Test(s) 336997- Atopobium vaginae; 933852- BVAB 2;644090- Megasphaera 1was developed and its performance characteristicsdetermined by [facility]. It has not been cleared or approvedby the Food and Drug Administration.Test(s) 634071-Rnwuhdu albicans, KATELYNN; 546151-Quyaxqa glabrata, NAAwas developed and its performance characteristicsdetermined by [facility]. It has not been cleared or approvedby the Food and Drug Administration. Atopobium vaginae High - 2 [A ] Score =G Reference Range: . BVAB 2 Low - 0 Score =G Reference Range: . Megasphaera 1 Low - 0 Score =G Reference Range: .Calculate total score by adding the 3 individual bacterialvaginosis (BV) marker scores together. Total score isinterpreted as follows:Total score 0-1: Indicates the absence of BV.Total score 2: Indeterminate for BV. Additional clinical data should be evaluated to establish a diagnosis.Total score 3-6: Indicates the presence of BV.Na albicans, KATELYNN Negative =G Reference Range: NegativeCandida glabrata, KATELYNN Negative =G Reference Range: NegativeTrich vag by KATELYNN Positive [A ] =G Reference Range: NegativeChlamydia trachomatis, KATELYNN Negative =G Reference Range: NegativeNeisseria gonorrhoeae, KATELYNN Negative =G Reference Range: NegativePerformed at: = - [address] [id number] Director: Luz Marina Sherman MD, Phone: [phone] at: [address] [id number] Director: Steve Salas PhD, Phone: [phone] Start: 12-07-2024 Methadone measurement, urine Dr. Odin Abraham MD Work Phone: Start: 12-07-[address] Garrick Abraham MD Work Phone: Start: 04-14-2024 STREP A MOLECULAR (POC) Delmis Sparks PA-C Work Phone: Start: 10-07-2023 STREP A MOLECULAR (POC) Tucker Devlin PUBLIC TRANSIT SPECIALIST.FISHER MUSSEL Work Phone: Start: 08-07-2023 STREP A MOLECULAR (POC) [facility] Provider Start: 03-26-2023 COVID & INFLUENZA A/B & RSV NAAT, ROUTINE Barrie Martinez APRN.FISHER MUSSEL Work Phone: Start: 11-07-2023 Iadna respiratry probe & rev trnscr 3-5 targets Barrie Martinez PUBLIC TRANSIT SPECIALIST.FISHER MUSSEL Work Phone: Start: 03-26-2023 Sars-cov-2 detection by dna/rna Barrie Martinez PUBLIC TRANSIT SPECIALIST.FISHER MUSSEL Work Phone: Start: 01-08-2023 Urine test visual color cmprsn duy De Jesus MD Work Phone: Start: 01-16-2021 Adult depression screening assessment Cheyenne Bautista APRN FISHER MUSSEL Work Phone: Start: 01-04-2020 Adult depression screening assessment Virginia Vidal Start: 01-04-2020 Microscopic observation [Identifier] in Cervix by Cyto stain Virginia Vidal Start: 09-14-2019 Acute hepatitis panel Estuardo Anna Work Phone: Start: 09-14-2019 Antibody treponema pallidum Estuardo Hyde Work Phone: Start: 09-14-2019 Blood count complete automated Estuardo traore Work Phone: Start: 09-14-2019 Chlamydia trachomatis+Neisseria gonorrhoeae rRNA [Presence] in Cervix by Probe Estuardo Anna Work Phone: Start: 09-14-2019 Comprehensive metabolic panel Estuardo ross Work Phone: Start: 09-14-2019 GLOMERULAR FILTRATION RATE Estuardo Souza kyle Work Phone: Start: 09-14-2019 Iaad ia hiv-1 ag w/hiv-1 & hiv-2 antbdy single Estuardo Anna Work Phone: Plan of Treatment Date Care Activity Detail Author Start: 09-29-2027 HPV TESTING HPV TESTING [facility] Start: 09-29-2027 PAP TESTING PAP TESTING [facility] Start: 09-29-2027 Screening for malign ant neoplasm of cervix [facility] Start: 01-18-2025 Influenza vaccination Influenz a Vaccine (Season Ended) [facility] Start: 01-03-2025 Screening for malign ant neoplasm of cervix PAP SMEAR [facility] Start: 12-11-2024 Patient discharge [facility] Start: 12-09-2024 Assessment using assessment scale [facility] Start: 12-09-2024 [facility] Start: 12-08-2024 Notification of physician [facility] Start: 12-08-2024 Vital signs measurements [facility] Start: 12-08-2024 Ambulation without limitation [facility] Start: 12-08-2024 Assessment of risk o f venous thromboembolism [facility] Start: 12-08-2024 Insertion of cathete r into peripheral vein [facility] Start: 12-08-2024 Providing care accor ding to standard [facility] Start: 12-08-2024 Referral to service [facility] Start: 12-08-2024 [facility] Start: 12-08-2024 Consultation [facility] Start: 12-07-2024 Verification routine [facility] Start: 12-07-2024 Admission procedure [facility] Start: 12-07-2024 Hospital admission, emergency, from emergency room, medical nature [facility] Start: 01-19-2024 Covid-19 Vaccine ( season) Covid-19 Vaccine ( season) [facility] Start: 01-19-[address] [facility] Start: 09-29-2023 Screening for malign ant neoplasm of cervix Cervical Cancer Screening [facility] Start: 05-20-2023 Behavioral Health Screening Behavioral Health Screening [facility] Start: 05-20-2023 Depression Assessment Depression Ass essment [facility] Start: 01-18-2023 Covid-19 Vaccine ( season) Covid-19 Vaccine ( season) [facility] Start: 01-18-[address] [facility] Start: 01-03-2023 Human papilloma viru s screening PAP SMEAR [facility] Start: 05-28-2022 Patient referral [facility] Work Phone: Start: 05-20-2022 DEPRESSION ASSESSMENT DEPRESSION ASS ESSMENT [facility] Start: 01-29-2022 End: 01-29-2022 Patient encounter procedure 01/29/2022 Office Visit Obstetrics and Gynecology Cheyenne Bautista, RUBEN FISHER MUSSEL [address] [place] [address] [facility] Start: 01-17-2022 ANNUAL WELLNESS VISIT ANNUAL WELLNES S VISIT [facility] Start: 01-16-2022 Depression screening using PHQ-9 (Patient Health Questionnaire 9) score DEPRESSION SCREENING [facility] Start: 04-19-2021 End: 04-19-2021 Patient encounter procedure 04/19/2021 Office Visit Family Medicine Roxie Byrne PA-C [address] [place] [address] [facility] [address] ADULT Start: 02-08-2021 End: 02-08-2021 Telemedicine consultation with patient 02/08/2021 Telemedicine Behavioral Health Richie Monk PA [address] [place] [address] [facility] Start: 01-30-2021 End: 01-30-2021 Clinical Support 01/30/2021 Clinical Support Obstetrics and Gynecology Cheyenne Bautista APRN FISHER MUSSEL [address] [place] [address] [facility] Start: 01-18-2021 Influenza vaccinatio n given INFLUENZA VACCINE (#1) [facility] Start: 01-09-2021 End: 01-09-2021 Office Visit 01/09/2021 Office Visit Obstetrics and Gynecology Virginia Vidal APRN FISHER MUSSEL [address] [place] [address] [phone] [facility] Start: 01-03-2021 Adult depression screening assessment DEPRESSION SCREENING [facility] Start: 11-25-2020 ANNUAL WELLNESS VISIT ANNUAL WELLNES S VISIT [facility] Start: 01-26-2020 End: 01-26-2020 Office Visit 01/26/2020 Office Visit Family Medicine Roxie Byrne PA-C [address] [place] [address] [phone] [facility] [address] ADULT Start: 01-19-2020 Influenza vaccinatio n given INFLUENZA VACCINE (#1) [facility] Start: 01-18-2019 Influenza vaccinatio n given INFLUENZA VACCINE (#1) [facility] Start: 2011 Human papilloma viru s screening PAP SMEAR [facility] Start: 2011 Tetanus, diphtheria and acellular pertussis vaccination TDAP/TD ADULT [facility] Start: 2009 Hepatitis B Vaccine (1 of 3 - 19+ 3-dose series) Hepatitis B Vaccine (1 of 3 - 19+ 3-dose series) [facility] Start: 2009 Urine microalbumin profile [facility] Start: 02-16-2008 ANNUAL WELLNESS VISIT ANNUAL WELLNES S VISIT [facility] Start: 02-16-2008 Depression Screening Depression Scre ening [facility] Start: 02-16-2008 HEPATITIS C SCREENING HEPATITIS C [facility] Start: 02-16-2008 Hepatitis C screening Hepatitis C [facility] Start: 02-16-2008 HIV SCREENING HIV SCREENING [facility] Start: 02-16-2008 HIV screening HIV Screening [facility] Start: 2002 Adult depression screening assessment DEPRESSION SCREENING [facility] Start: 2001 Diphtheria + pertuss is + tetanus vaccine (product) DTAP/TDAP/TD VACCINE (1 - Tdap) [facility] Start: 1990 COVID-19 VACCINE (#1) COVID-19 VACCI NE (#1) [facility] Start: 1990 HEPATITIS B (1 of 3 - 3-dose series) HEPATITIS B (1 of 3 - 3-dose series) [facility] Start: 1990 Hepatitis B Vaccine (1 of 3 - 3-dose series) Hepatitis B Vaccine (1 of 3 - 3-dose series) [facility] Chlamydia trachomatis+Neisseria gonorrhoeae DNA [Presence] in Unspecified specimen by KATELYNN with probe detection GONORRHEA/CHLAMYDIA NAAT Lab Routine Screen for STD (sexually transmitted disease) 01/08/2023 10:58 AM EDT [facility] Work Phone: Chlamydia trachomatis+Neisseria gonorrhoeae rRNA [Presence] in Cervix by Probe GC & CHLAMYDIA AMPLIFIED PROBE Microbiology Routine 09/14/2019 10:44 AM EDT [facility] End: 01-17-2021 Chlamydia trachomatis+Neisseria gonorrhoeae rRNA [Presence] in Cervix by Probe [facility] Comment on above: 1 Occurrences starti ng 01/17/2021 until 01/17/2021 COVID & INFLUENZA A/ B & RSV NAAT, ROUTINE COVID & INFLUENZA A/B & RSV NAAT, ROUTINE Microbiology Routine URI, acute 05/05/2023 3:31 PM EST [facility] Work Phone: End: 01-17-2021 Human papilloma virus DNA [Presence] in Unspecified specimen by Probe with amplification [facility] Work Phone: Comment on above: 1 Occurrences starti ng 01/17/2021 until 01/17/2021 Insertion intrauteri ne device iud INSERT INTRAUTERINE DEVICE Procedures Routine Encounter for IUD insertion Ordered: 12/31/2022 [facility] Work Phone: Comment on above: Ordered: 12/31/2022 Insertion intrauteri ne device iud INSERT INTRAUTERINE DEVICE Procedures Routine Encounter for IUD insertion Ordered: 01/08/2023 [facility] Work Phone: Comment on above: Ordered: 01/08/2023 End: 01-17-2021 Microscopic observation [Identifier] in Cervix by Cyto stain [facility] Comment on above: 1 Occurrences starti ng 01/17/2021 until 01/17/2021 Patient referral [facility] Work Phone: Tobacco use cessatio n education [facility] End: 01-17-2021 Trichomonas Amplified Probe [facility] Comment on above: 1 Occurrences starti ng 01/17/2021 until 01/17/2021 TRICHOMONAS VAGINALI S NAAT TRICHOMONAS VAGINALIS NAAT Lab Routine Screen for STD (sexually transmitted disease) 01/08/2023 10:58 AM EDT [facility] Work Phone: [facility] Payers Date Payer Category Payer Self-pay [id number] 2023 Unknown [id number] 2022 Medicaid [id number] 1990 Unknown [id number] 1990 Unknown [id number] Medicaid [facility] xxxxxxxxxxxx Effective for all dates [phone] [address] [place] [address] Medicaid xxxxxxxxxxxx [id number] Medicaid [id number] Unknown [id number] Unknown [id number] Unknown [id number] Unknown [id number] Unknown [id number] Unknown [id number] Unknown [id number] Unknown [id number] Social History Date Type Detail Facility Start: 07-04-2017 End: 09-28-2022 Tobacco smoking status NHIS Never smoker [facility] Work Phone: Start: 07-04-2017 Alcohol intake Current drinke r of alcohol (finding) [facility] Start: 1990 Sex Assigned At Not on file G [facility] Start: 01-04-2020 End: 12-09-2024 Tobacco smoking status NHIS Current every day smoker [facility] End: 11-18-2019 History of tobacco use Cigarette Smoker [facility] Start: 01-04-2020 End: 09-28-2022 Tobacco use and exposure Never used [facility] Start: 01-04-2020 End: 10-26-2024 Alcohol intake Ex-drinker (finding) [facility] Exposure to SARS-CoV -2 (event) Not sure [facility] Start: 01-11-2021 History SDOH Social Connections Membership 2 [facility] Start: 01-11-2021 History SDOH Financial 5 [facility] Start: 01-11-2021 History SDOH Food Worry 1 [facility] Start: 06-18-2022 Tobacco smoking stat us WYIS Unknown if ever smoked [facility] Start: 1990 Sex Assigned At Female [facility] Start: 09-28-2022 End: 12-31-2022 History of Social function [facility] Start: 09-28-2022 End: 12-31-2022 Tobacco use panel [facility] National Score (1-100), lower number is lower risk [address] [facility] Start: 09-28-2022 Education [address] [facility] Start: 09-28-2022 Tobacco Comment Pt vapes [facility] Start: 09-28-2022 Alcohol Comment sober 15 mos [facility] Start: 05-05-2023 Gender identity Identifies as female gender (finding) [facility] NEGATED: Highlighted rowStart: NINF History of tobacco use Passive smoker [facility] Work Phone: NEGATED: Highlighted row Not [facility] Goals Date Patient Goal Desired Activity /State Functional Status Date Assessment Result Facility 12-11-2024 Functional status Bathroom Privilege [facility] Work Phone: Mental Status Date Assessment Result Facility 12-10-2024 Cognitive function Voice/Name [facility] Work Phone: Clinical Notes 12-31-2022 to 12-11-2024 Note Date & Type Note Facility 12-11-2024 Discharge summary Note Date/Time December 11, 2024 10:00am [facility] Medical Records Department [address] [place] [address] Discharge Summary 12/11/24 0957 MR#: [id number] Acct: [id number] Name: CHRISTA COLBERT Rep #:[id number] : 1990 34 From: Ezio green MD PCP: Dr. Odin Abraham MD Status:ADM IN Location: [facility] [id number] Providers Date of Admission: 12/07/24 Primary Care Physician: Dr. Odin Abraham MD Reason For Visit: OPIATE WITHDRAWAL, METHAMPHETAMINE ABUSE Diagnosis Discharge Diagnosis (1) Depression: Status: Acute Code(s): F32.A - Depression, unspecified (2) Anxiety: Status: Acute Code(s): F41.9 - Anxiety disorder, unspecified (3) Methamphetamine abuse: Status: Acute Code(s): F15.10 - Other stimulant abuse, uncomplicated (4) Opiate abuse, continuous: Status: Acute Code(s): F11.10 - Opioid abuse, uncomplicated Medications at Discharge Home Medications levonorgestrel (Mirena) 1 device intrauterine ONCE 02/26/23 fexofenadine 180 mg tablet (Carol Allergy) 180 mg PO DAILY PRN 09/05/23 fluticasone propionate 50 mcg/actuation nasal spray,suspension (Flonase Allergy Relief) 1 spray intranasal DAILY PRN 09/05/23 aluminum chloride 20 % topical solution (Drysol Dab-O-Matic) 1 applic topical 2XW #60 mL 03/17/24 quetiapine 100 mg tablet 100 mg PO QHS #30 tabs 05/18/24 mirtazapine 15 mg tablet (Remeron) 15 mg PO DAILY #90 tabs 05/26/24 bupropion HCl 200 mg tablet,12 hr sustained-release 200 mg PO BID #60 ea 06/02/24 Hospital Course Operations None Procedures None Summary of Care Provided Minutes Spent on Discharge: 31 Hospital Course: Per HPI: CHRISTA COLBERT, is a 34 F who presents to the emergency room with chiefcomplaint of requesting withdrawal support from opiates and methamphetamine. Patient has a long-term drug addiction history but states after 22 she had been sober for nearly 3 years but had lost her sober housing situation and relapsed. Patient admits to some nausea and vomiting and irritability. Patient states shelast used meth and fentanyl earlier today around noon. She is requesting support for withdrawal and detoxification. Patient denies any other chronic medical history and denies chest pain or shortness of breath or fevers or chillsat present time Hospital Course: 1. Opiate withdrawal and methamphetamine use/anxiety/depression?34-year-old female presented to the hospital requesting detox from opiates. She did have a delay withdrawal but did ultimately need to start buprenorphine. She is feelingmuch better today and 180 was able to get her into inpatient rehab which she would like to go. I discussed with her the possibility of discharge today and she expressed understanding of the risks and benefits of going to inpatient rehab and would like to go today. She is supposed to be on Wellbutrin, Remeron,and Seroquel however she has not been taking her Remeron or Seroquel recently. Would benefit from mental health evaluation and reinitiation of medications. Physical Exam Narrative General: Alert, Oriented x3, Cooperative, No apparent distress, diaphoretic HEENT: Atraumatic, PERRLA, EOMI, Normocephalic Oral: Moist Mucosa Neck: Supple, No JVD Lungs: Clear to auscultation, Normal air movement, No rhonchi, No wheeze, No rales Cardiovascular: Regular rate, Regular Rhythm, Normal S1, Normal S2, No murmurs Abdomen: Soft, Non Tender, Non-Distended, No Hepato-splenomegaly Extremities: No edema, Capillary Refill Less than 3 Seconds Skin: No rashes, No breakdown Musculoskeletal: No Tenderness to Palpation of Joints or Extremities Neurological: No focal neurological deficits, Motor Exam 5/5 strength throughout, Sensory exam intact to light touch and pain Psych/Mental Status: Normal affect, appropriate Weight / BMI Weight Weight: 148 lb 2.41 oz Body Mass Index (BMI) 21.2 ABG / Lab / Microbiology Data 12/07/24 19:50 12/07/24 19:50 D/C Instructions Call your doctor if you observe: Fever of 101 or Higher, Shortness of breath, Dizziness, Fainting spells, Swelling in the ankles, Chest pain and Increased palpitations (irregular heartbeat) DC O2, CPAP, BIPAP Needs Home O2 Discharge instructions: No Meaningful Use Info Meaningful Use Meaningful Use Diagnoses (Choose all that apply): None applicable Discharge Plan Admission Admit Date/Time: 12/07/24 23:23 Attending Provider: Ezio Mclean Primary Care Provider: Odin Abraham Consulting Providers: Yrn Yepez Discharge Orders/Prescriptions Prescriptions: Continued Mirena 21 mcg/24 hours (8 yrs) 52 mg intrauterine device 1 device intrauterine ONCE Rx Instructions: as a single dose fexofenadine [Carol Allergy] 180 mg tablet 180 mg PO DAILY PRN fluticasone propionate [Flonase Allergy Relief] 50 mcg/actuation spray,suspension 1 spray intranasal DAILY PRN Rx Instructions: administer into each nostril Drysol Dab-O-Matic 20 % solution 1 applic topical 2XW Qty: 60 1RF quetiapine 100 mg tablet 100 mg PO QHS Qty: 30 0RF Patient Comments: has not been taking recently mirtazapine [Remeron] 15 mg tablet 15 mg PO DAILY Qty: 90 0RF Patient Comments: has not been taking recently bupropion HCl 200 mg tablet sustained-release 12 hr 200 mg PO BID Qty: 60 1RF Patient Comments: has not been taking recently Referrals / Follow Up: Odin Abraham MD [Primary Care Provider] - Within 1 Month Disposition Disposition (needs filled in before D/C Order can be placed): Inpatient Rehab Unit/Facility Charges/Coding Visit Charges Inpatient E&M: 89608 Disch Hosp >30min 12/11/24 1000 <Electronically signed by Ezio Mclean MD> Cosigner Signature (if applicable): CC: Dr. Odin Abraham MD; Dr. Ezio Mclean MD~ Signed [facility] Work Phone: 1(157) 536-988507-25-2025 Consult note Author Rashmi Whitt [facility] Note Date/Time December 11, 2024 9:50 am [facility] Medical Records Department [address] [place] [address] Counseling Note - Pharmacy 12/11/24 0949 MR#: [id number] Acct: [id number] Name: CHRISTA COLBERT Rep #:[id number] : 1990 34 From: Rashmi Whitt PCP: Dr. Odin Abraham MD Status:ADM IN Location: [place] [address] Pharmacy [place] Med Reconciliation Pharmacy Service has performed discharge medication reconciliation for this patient. The patient's discharge medication list was reviewed for discrepancies and discrepancies were resolved. Medications at Discharge Home Medications levonorgestrel (Mirena) 1 device intrauterine ONCE 02/26/23 fexofenadine 180 mg tablet (Carol Allergy) 180 mg PO DAILY PRN 09/05/23 fluticasone propionate 50 mcg/actuation nasal spray,suspension (Flonase Allergy Relief) 1 spray intranasal DAILY PRN 09/05/23 aluminum chloride 20 % topical solution (Drysol Dab-O-Matic) 1 applic topical 2XW #60 mL 03/17/24 quetiapine 100 mg tablet 100 mg PO QHS #30 tabs 05/18/24 mirtazapine 15 mg tablet (Remeron) 15 mg PO DAILY #90 tabs 05/26/24 bupropion HCl 200 mg tablet,12 hr sustained-release 200 mg PO BID #60 ea 06/02/24 12/11/24 0950 <Electronically signed by Rashmi Whitt> Date _ Rashmi Whitt Cosigner Signature (if applicable): Date CC: ~ Signed [facility] Work Phone: 1(216) 946-653007-25-2025 Discharge summary Author Ezio Mclean [facility] Note Date/Time December 11, 2024 8:24 am [facility] Medical Records Department [address] [place] [address] Instructions for Home/Discharge Instructions 12/11/24 08 MR#: [id number] Acct: [id number] Name: CHRISTA COLBERT Rep #:[id number] : 1990 34 From: Ezio green MD PCP: Dr. Odin Abraham MD Status:ADM IN Discharge Instructions DC O2, CPAP, BIPAP needs Home O2 Discharge instructions: No Dressing / Incision Discharge Activity: Return to Normal Activity Dressing / Incision Call your doctor if you observe: Fever of 101 or Higher, Shortness of breath, Dizziness, Fainting spells, Swelling in the ankles, Chest pain and Increased palpitations (irregular heartbeat) Follow Up Care Test Results: Test results from this visit will be discussed in further detail at your follow- up appointment, if applicable. Discharge Plan Admission Admit Date/Time: 12/07/24 23:23 Attending Provider: Ezio Mclean Primary Care Provider: Odin Abraham Consulting Providers: Yrn Yepez Discharge Orders/Prescriptions Prescriptions: Continued Mirena 21 mcg/24 hours (8 yrs) 52 mg intrauterine device 1 device intrauterine ONCE Rx Instructions: as a single dose fexofenadine [Carol Allergy] 180 mg tablet 180 mg PO DAILY PRN fluticasone propionate [Flonase Allergy Relief] 50 mcg/actuation spray,suspension 1 spray intranasal DAILY PRN Rx Instructions: administer into each nostril Drysol Dab-O-Matic 20 % solution 1 applic topical 2XW Qty: 60 1RF quetiapine 100 mg tablet 100 mg PO QHS Qty: 30 0RF Patient Comments: has not been taking recently mirtazapine [Remeron] 15 mg tablet 15 mg PO DAILY Qty: 90 0RF Patient Comments: has not been taking recently bupropion HCl 200 mg tablet sustained-release 12 hr 200 mg PO BID Qty: 60 1RF Patient Comments: has not been taking recently Referrals / Follow Up: Odin Abraham MD [Primary Care Provider] - Within 1 Month Disposition Disposition (needs filled in before D/C Order can be placed): Inpatient Rehab Unit/Facility 12/11/24 0824<Electronically signed by Ezio Mclean MD>Ezio Mclean MD CC: Dr. Odin Abraham MD; Dr. Yrn Yepez MD ~ Signed [facility] Work Phone: 1(190) 960-949307-25-2025 Discharge summary [facility] Medical Records Department [address] [place] [address] Discharge Summary 12/11/24 0957 MR#: [id number] Acct: [id number] Name: CHRISTA COLBERT Rep #:[id number] : 1990 34 From: Ezio green MD PCP: Dr. Odin Abraham MD Status:ADM IN [id number] Prov[facility] Date of Admission: 12/07/24 Primary Care Physician: Dr. Odin Abraham MD Reason For Visit: OPIATE WITHDRAWAL, METHAMPHETAMINE ABUSE Diagnosis Discharge Diagnosis (1) Depression: Status: Acute Code(s): F32.A - Depression, unspecified (2) Anxiety: Status: Acute Code(s): F41.9 - Anxiety disorder, unspecified (3) Methamphetamine abuse: Status: Acute Code(s): F15.10 - Other stimulant abuse, uncomplicated (4) Opiate abuse, continuous: Status: Acute Code(s): F11.10 - Opioid abuse, uncomplicated Medications at Discharge Home Medications levonorgestrel (Mirena) 1 device intrauterine ONCE 02/26/23 fexofenadine 180 mg tablet (Carol Allergy) 180 mg PO DAILY PRN 09/05/23 fluticasone propionate 50 mcg/actuation nasal spray,suspension (Flonase Allergy Relief) 1 spray intranasal DAILY PRN 09/05/23 aluminum chloride 20 % topical solution (Drysol Dab-O-Matic) 1 applic topical 2XW #60 mL 03/17/24 quetiapine 100 mg tablet 100 mg PO QHS #30 tabs 05/18/24 mirtazapine 15 mg tablet (Remeron) 15 mg PO DAILY #90 tabs 05/26/24 bupropion HCl 200 mg tablet,12 hr sustained-release 200 mg PO BID #60 ea 06/02/24 Hospital Course Operations None Procedures None Summary of Care Provided Minutes Spent on Discharge: 31 Hospital Course: Per HPI: CHRISTA COLBERT, is a 34 F who presents to the emergency room with chiefcomplaint of requesting withdrawal support from opiates and methamphetamine. Patient has a long-term drug addiction history but states after 22 she had been sober for nearly 3 years but had lost her sober housing situati on and relapsed. Patient admits to some nausea and vomiting and irritability. Patient states shelast used meth and fentanyl earlier today around noon. She is requesting support for withdrawal and detoxification. Patient denies any other chronic medical history and denies chest pain or shortness of breath or fevers or chillsat present time Hospital Course: 1. Opiate withdrawal and methamphetamine use/anxiety/depression?34-year-old female presented to thehospital requesting detox from opiates. She did have a delay withdrawal but did ultimately need to start buprenorphine. She is feelingmuch better today and 180 was able to get her into inpatient rehab which she would like to go. I discussed with her the possibility of discharge today and she expressed understanding of the risks and benefits of going to inpatient rehab and would like to go today. She is supposed to be on Wellbutrin, Remeron,and Seroquel however she has not been taking her Remeron or Seroquel recently. Would benefit from mental health evaluation and reinitiation of medications. Physical Exam Narrative General: Alert, Oriented x3, Cooperative, No apparent distress, diaphoretic HEENT: Atraumatic, PERRLA, EOMI, Normocephalic Oral: Moist Mucosa Neck: Supple, No JVD Lungs: Clear to auscultation, Normal air movement, No rhonchi, No wheeze, No rales Cardiovascular: Regular rate, Regular Rhythm, Normal S1, Normal S2, No murmurs Abdomen: Soft, Non Tender, Non-Distended, No Hepato-splenomegaly Extremities: No edema, Capillary Refill Less than 3 Seconds Skin: No rashes, No breakdown Musculoskeletal: No Tenderness to Palpation of Joints or Extremities Neurological: No focal neurological deficits, Motor Exam 5/5 strength throughout, Sensory exam intact to light touch and pain Psych/Mental Status: Normal affect, appropriate Weight / BMI Weight Weight: 148 lb 2.41 oz Body Mass Index (BMI) 21.2 ABG / Lab / Microbiology Data 12/07/24 19:50 12/07/24 19:50 D/C Instructions Call your doctor if you observe: Fever of 101 or Higher, Shortness of breath, Dizziness, Fainting spells, Swelling in the ankles, Chest pain and Increased palpitations (irregular heartbeat) DC O2, CPAP, BIPAP Needs Home O2 Discharge instructions: No Meaningful Use Info Meaningful Use Meaningful Use Diagnoses (Choose all that apply): None applicable Discharge Plan Admission Admit Date/Time: 12/07/24 23:23 Attending Provider: Ezio Mclean Primary Care Provider: Odin Abraham Consulting Providers: Yrn Yepez Discharge Orders/Prescriptions Prescriptions: Continued Mirena 21 mcg/24 hours (8 yrs) 52 mg intrauterine device 1 device intrauterine ONCE Rx Instructions: as a single dose fexofenadine [Carol Allergy] 180 mg tablet 180 mg PO DAILY PRN fluticasone propionate [Flonase Allergy Relief] 50 mcg/actuation spray,suspension 1 spray intranasal DAILY PRN Rx Instructions: administer into each nostril Drysol Dab-O-Matic 20 % solution 1 applic topical 2XW Qty: 60 1RF quetiapine 100 mg tablet 100 mg PO QHS Qty: 30 0RF Patient Comments: has not been taking recently mirtazapine [Remeron] 15 mg tablet 15 mg PO DAILY Qty: 90 0RF Patient Comments: has not been taking recently bupropion HCl 200 mg tablet sustained-release 12 hr 200 mg PO BID Qty: 60 1RF Patient Comments: has not been taking recently Referrals / Follow Up: Odin Abraham MD [Primary Care Provider] - Within 1 Month Disposition Disposition (needs filled in before D/C Order can be placed): Inpatient Rehab Unit/Facility Charges/Coding Visit Charges Inpatient E&M: 53617 Disch Hosp >30min 12/11/24 1000 Cosigner Signature (if applicable): CC: Dr. Odin Abraham MD; Dr. Ezio Mclean MD~ Signed [facility]07-25-2025 [facility] Medical Records Department [address] [place] [address] Discharge Summary 12/11/24 0957 MR#: [id number] Acct: [id number] Name: CHRISTA COLBERT Rep #: [id number] : 1990 34 From: Ezio Mclean MD PCP: Dr. Odin Abraham MD Status:ADM IN Location: [facility] [id number] Providers Date of Admission: 12/07/24 Primary Care Physician: Dr. Odin Abraham MD Reason For Visit: OPIATE WITHDRAWAL, METHAMPHETAMINE ABUSE Diagnosis Discharge Diagnosis (1) Depression: Status: Acute Code(s): F32.A - Depression, unspecified (2) Anxiety: Status: Acute Code(s): F41.9 - Anxiety disorder, unspecified (3) Methamphetamine abuse: Status: Acute Code(s): F15.10 - Other stimulant abuse, uncomplicated (4) Opiate abuse, continuous: Status: Acute Code(s): F11.10 - Opioid abuse, uncomplicated Medications at Discharge Home Medications levonorgestrel (Mirena) 1 device intrauterine ONCE 02/26/23 fexofenadine 180 mg tablet (Carol Allergy) 180 mg PO DAILY PRN 09/05/23 fluticasone propionate 50 mcg/actuation nasal spray,suspension (Flonase Allergy Relief) 1 spray intranasal DAILY PRN 09/05/23 aluminum chloride 20 % topical solution (Drysol Dab-O-Matic) 1 applic topical 2XW #60 mL 03/17/24 quetiapine 100 mg tablet 100 mg PO QHS #30 tabs 05/18/24 mirtazapine 15 mg tablet (Remeron) 15 mg PO DAILY #90 tabs 05/26/24 bupropion HCl 200 mg tablet,12 hr sustained-release 200 mg PO BID #60 ea 06/02/24 Hospital Course Operations None Procedures None Summary of Care Provided Minutes Spent on Discharge: 31 Hospital Course: Per HPI: CHRISTA COLBERT, is a 34 F who presents to the emergency room with chief complaint of requesting withdrawal support from opiates and methamphetamine. Patient has a long-term drug addiction history but states after 22 she had been sober for nearly 3 years but had lost her sober housing situation and relapsed. Patient admits to some nausea and vomiting and irritability. Patient states she last used meth and fentanyl earlier today around noon. She is requesting support for withdrawal and detoxification. Patient denies any other chronic medical history and denies chest pain or shortness of breath or fevers or chills at present time Hospital Course: 1. Opiate withdrawal and methamphetamine use/anxiety/depression???34-year-old female presented to the hospital requesting detox from opiates. She did have a delay withdrawal but did ultimately need to start buprenorphine. She is feeling much better today and 180 was able to get her into inpatient rehab which she would like to go. I discussed with her the possibility of discharge today and she expressed understanding of the risks and benefits of going to inpatient rehab and would like to go today. She is supposed to be on Wellbutrin, Remeron, and Seroquel however she has not been taking her Remeron or Seroquel recently. Would benefit from mental health evaluation and reinitiation of medications. Physical Exam Narrative General: Alert, Oriented x3, Cooperative, No apparent distress, diaphoretic HEENT: Atraumatic, PERRLA, EOMI, Normocephalic Oral: Moist Mucosa Neck: Supple, No JVD Lungs: Clear to auscultation, Normal air movement, No rhonchi, No wheeze, No rales Cardiovascular: Regular rate, Regular Rhythm, Normal S1, Normal S2, No murmurs Abdomen: Soft, Non Tender, Non-Distended, No Hepato-splenomegaly Extremities: No edema, Capillary Refill Less than 3 Seconds Skin: No rashes, No breakdown Musculoskeletal: No Tenderness to Palpation of Joints or Extremities Neurological: No focal neurological deficits, Motor Exam 5/5 strength throughout, Sensory exam intact to light touch and pain Psych/Mental Status: Normal affect, appropriate Weight / BMI Weight Weight: 148 lb 2.41 oz Body Mass Index (BMI) 21.2 ABG / Lab / Microbiology Data 12/07/24 19:50 12/07/24 19:50 D/C Instructions Call your doctor if you observe: Fever of 101 or Higher, Shortness of breath, Dizziness, Fainting spells, Swelling in the ankles, Chest pain and Increased palpitations (irregular heartbeat) DC O2, CPAP, BIPAP Needs Home O2 Discharge instructions: No Meaningful Use Info Meaningful Use Meaningful Use Diagnoses (Choose all that apply): None applicable Discharge Plan Admission Admit Date/Time: 12/07/24 23:23 Attending Provider: Ezio Mclean Primary Care Provider: Odin Abraham Consulting Providers: Yrn Yepez Discharge Orders/Prescriptions Prescriptions: Continued Mirena 21 mcg/24 hours (8 yrs) 52 mg intrauterine device 1 device intrauterine ONCE Rx Instructions: as a single dose fexofenadine [Carol Allergy] 180 mg tablet 180 mg PO DAILY PRN fluticasone propionate [Flonase Allergy Relief] 50 mcg/actuation spray,suspension 1 spray intranasal DAILY PRN Rx Instruction (more content not included)...[facility] 12-11-2024 Consult note [facility] Medical Records Department [address] [place] [address] Counseling Note - Pharmacy 12/11/24 0949 MR#: [id number] Acct: [id number] Name: CHRISTA COLBERT Rep #:[id number] : 1990 34 From: Rashmi Whitt PCP: Dr. Odin Abraham MD Status:ADM IN Location: [facility] [id number] Pharmacy [place] Med Reconciliation Pharmacy Service has performed discharge medication reconciliation for this patient. The patient's discharge medication list was reviewed for discrepancies and discrepancies were resolved. Medications at Discharge Home Medications levonorgestrel (Mirena) 1 device intrauterine ONCE 02/26/23 fexofenadine 180 mg tablet (Carol Allergy) 180 mg PO DAILY PRN 09/05/23 fluticasone propionate 50 mcg/actuation nasal spray,suspension (Flonase Allergy Relief) 1 spray intranasal DAILY PRN 09/05/23 aluminum chloride 20 % topical solution (Drysol Dab-O-Matic) 1 applic topical 2XW #60 mL 03/17/24 quetiapine 100 mg tablet 100 mg PO QHS #30 tabs 05/18/24 mirtazapine 15 mg tablet (Remeron) 15 mg PO DAILY #90 tabs 05/26/24 bupropion HCl 200 mg tablet,12 hr sustained-release 200 mg PO BID #60 ea 06/02/24 12/11/24 0950 Date _ Rashmi Avilez Signature (if applicable): Date CC: ~ Signed [facility]07-25-2025 Discharge summary [facility] Medical Records Department [address] [place] [address] Instructions for Home/Discharge Instructions 12/11/24 0821 MR#: [id number] Acct: [id number] Name: CHRISTA COLBERT Rep #:[id number] : 1990 34 From: Ezio green MD PCP: Dr. Odin Abraham MD Status:ADM IN Discharge Instructions DC O2, CPAP, BIPAP needs Home O2 Discharge instructions: No Dressing / Incision Discharge Activity: Return to Normal Activity Dressing / Incision Call your doctor if you observe: Fever of 101 or Higher, Shortness of breath, Dizziness, Fainting spells, Swelling in the ankles, Chest pain and Increased palpitations (irregular heartbeat) Follow Up Care Test Results: Test results from this visit will be discussed in further detail at your follow- up appointment, if applicable. Discharge Plan Admission Admit Date/Time: 12/07/24 23:23 Attending Provider: Ezio Mclean Primary Care Provider: Odin Abraham Consulting Providers: Yrn Yepez Discharge Orders/Prescriptions Prescriptions: Continued Mirena 21 mcg/24 hours (8 yrs) 52 mg intrauterine device 1 device intrauterine ONCE Rx Instructions: as a single dose fexofenadine [Carol Allergy] 180 mg tablet 180 mg PO DAILY PRN fluticasone propionate [Flonase Allergy Relief] 50 mcg/actuation spray,suspension 1 spray intranasal DAILY PRN Rx Instructions: administer into each nostril Drysol Dab-O-Matic 20 % solution 1 applic topical 2XW Qty: 60 1RF quetiapine 100 mg tablet 100 mg PO QHS Qty: 30 0RF Patient Comments: has not been taking recently mirtazapine [Remeron] 15 mg tablet 15 mg PO DAILY Qty: 90 0RF Patient Comments: has not been taking recently bupropion HCl 200 mg tablet sustained-release 12 hr 200 mg PO BID Qty: 60 1RF Patient Comments: has not been taking recently Referrals / Follow Up: Leigh,Odin, MD [Primary Care Provider] - Within 1 Month Disposition Disposition (needs filled in before D/C Order can be placed): Inpatient Rehab Unit/Facility 12/11/24 0824Ezio Mclean MD CC: Dr. Odin Abraham MD; Dr. Yrn Yepez MD ~ Signed [facility]07-24-2025 Progress note Author Ezio Mclean [facility] Note Date/Time December 10, 2024 8:51 am [facility] Medical Records Department [address] [place] [address] Progress Note - Hospitalist 12/10/24 0836 MR#: [id number] Acct: [id number] Name: CHRISTA COLBERT Rep #:[id number] : 1990 34 From: Ezio green MD PCP: Dr. Odin Abraham MD Status:ADM IN Location: [place] [address] Subjective Subjective Cina score of 10, will continue with the buprenorphine taper Objective Data Objective Data Vital Signs: Vital Signs Temp Pulse Resp BP Pulse Ox O2 Del Method 97.5 F L 92 16 91/48 L 100 Room Air 12/10/24 08:21 12/10/24 08:21 12/10/24 08:21 12/10/24 08:21 12/10/24 08:21 12/10/24 08:21 Oxygen Delivery Method Room Air Weight: 148 lb 2.41 oz Body Mass Index (BMI) 21.2 Intake & Output: Intake and Output for Last 24 Hours 12/09/24 12/10/24 12/11/24 03:59 03:59 03:59 Intake Total 200 / 200 1140 / 1140 120 / 120 Balance 200 / 200 1140 / 1140 120 / 120 Lab / Micro Data 12/07/24 19:50 12/07/24 19:50 Physical Exam Narrative General: Alert, Oriented x3, Cooperative, No apparent distress, diaphoretic HEENT: Atraumatic, PERRLA, EOMI, Normocephalic Oral: Moist Mucosa Neck: Supple, No JVD Lungs: Clear to auscultation, Normal air movement, No rhonchi, No wheeze, No rales Cardiovascular: Regular rate, Regular Rhythm, Normal S1, Normal S2, No murmurs Abdomen: Soft, Non Tender, Non-Distended, No Hepato-splenomegaly Extremities: No edema, Capillary Refill Less than 3 Seconds Skin: No rashes, No breakdown Musculoskeletal: No Tenderness to Palpation of Joints or Extremities Neurological: No focal neurological deficits, Motor Exam 5/5 strength throughout, Sensory exam intact to light touch and pain Psych/Mental Status: Anxious and restless Assessment & Plan Assessment/Plan (1) Depression: (2) Anxiety: (3) Methamphetamine abuse: (4) Opiate abuse, continuous: PLAN: Plan 1. Requesting detox from opiates and methamphetamines/anxiety/depression ? Continue with the opiate withdrawal protocol, started her buprenorphine this morning ? She has discontinued all of her home medications including Wellbutrin, Remeron, Seroquel ? Would recommend follow-up with psych on discharge ? 180 met with her and is requesting inpatient placement on discharge DVT: Ambulation Charges/Coding Visit Charges Inpatient E&M: 72580 Subs Hosp L2 12/10/24 0851 <Electronically signed by Ezio Mclean MD> Cosigner Signature (if applicable): CC: ~ Signed [facility] Work Phone: 1(980) 310-487607-24-2025 Progress note [facility] Medical Records Department [address] [place] [address] Progress Note - Hospitalist 12/10/24 0836 MR#: [id number] Acct: [id number] Name: CHRISTA COLBERT Rep #:[id number] : 1990 34 From: Ezio green MD PCP: Dr. Odin Abraham MD Status:ADM IN Location: [facility] [id number] Subjective Subjective Cina score of 10, will continue with the buprenorphine taper Objective Data Objective Data Vital Signs: Vital Signs Temp Pulse Resp BP Pulse Ox O2 Del Method 97.5 F L 92 16 91/48 L 100 Room Air 12/10/24 08:21 12/10/24 08:21 12/10/24 08:21 12/10/24 08:21 12/10/24 08:21 12/10/24 08:21 Oxygen Delivery Method Room Air Weight: 148 lb 2.41 oz Body Mass Index (BMI) 21.2 Intake & Output: Intake and Output for Last 24 Hours 12/09/24 12/10/24 12/11/24 03:59 03:59 03:59 Intake Total 200 / 200 1140 / 1140 120 / 120 Balance 200 / 200 1140 / 1140 120 / 120 Lab / Micro Data 12/07/24 19:50 12/07/24 19:50 Physical Exam Narrative General: Alert, Oriented x3, Cooperative, No apparent distress, diaphoretic HEENT: Atraumatic, PERRLA, EOMI, Normocephalic Oral: Moist Mucosa Neck: Supple, No JVD Lungs: Clear to auscultation, Normal air movement, No rhonchi, No wheeze, No rales Cardiovascular: Regular rate, Regular Rhythm, Normal S1, Normal S2, No murmurs Abdomen: Soft, Non Tender, Non-Distended, No Hepato-splenomegaly Extremities: No edema, Capillary Refill Less than 3 Seconds Skin: No rashes, No breakdown Musculoskeletal: No Tenderness to Palpation of Joints or Extremities Neurological: No focal neurological deficits, Motor Exam 5/5 strength throughout, Sensory exam intact to light touch and pain Psych/Mental Status: Anxious and restless Assessment & Plan Assessment/Plan (1) Depression: (2) Anxiety: (3) Methamphetamine abuse: (4) Opiate abuse, continuous: PLAN: Plan 1. Requesting detox from opiates and methamphetamines/anxiety/depression ? Continue with the opiate withdrawal protocol, started her buprenorphine this morning ? She has discontinued all of her home medications including Wellbutrin, Remeron, Seroquel ? Would recommend follow-up with psych on discharge ? 180 met with her and is requesting inpatient placement on discharge DVT: Ambulation Charges/Coding Visit Charges Inpatient E&M: 45992 Subs Hosp L2 12/10/24 0851 Cosigner Signature (if applicable): CC: ~ Signed [facility]07-23-2025 Progress note Author Ezio Mclean [facility] Note Date/Time December 09, 2024 9:07 am [facility] Medical Records Department [address] [place] [address] Progress Note - Hospitalist 12/09/24 0900 MR#: [id number] Acct: [id number] Name: CHRISTA COLBERT Rep #:[id number] : 1990 34 From: Ezio green MD PCP: Dr. Odin Abraham MD Status:ADM IN Location: MS3 NQ360-4 Subjective Subjective Diaphoretic and shaky today CIWA scores of 9 so she started her Subutex taper Objective Data Objective Data Vital Signs: Vital Signs Temp Pulse Resp BP Pulse Ox O2 Del Method 98.1 F 93 16 91/44 L 99 Room Air 12/09/24 08:01 12/09/24 08:01 12/09/24 08:01 12/09/24 08:01 12/09/24 08:01 12/09/24 08:01 Oxygen Delivery Method Room Air Weight: 148 lb 2.41 oz Body Mass Index (BMI) 21.2 Intake & Output: Intake and Output for Last 24 Hours 12/08/24 12/09/24 12/10/24 03:59 03:59 03:59 Intake Total 200 / 200 200 / 200 Balance 200 / 200 200 / 200 Lab / Micro Data 12/07/24 19:50 12/07/24 19:50 Physical Exam Narrative General: Alert, Oriented x3, Cooperative, No apparent distress, diaphoretic HEENT: Atraumatic, PERRLA, EOMI, Normocephalic Oral: Moist Mucosa Neck: Supple, No JVD Lungs: Clear to auscultation, Normal air movement, No rhonchi, No wheeze, No rales Cardiovascular: Regular rate, Regular Rhythm, Normal S1, Normal S2, No murmurs Abdomen: Soft, Non Tender, Non-Distended, No Hepato-splenomegaly Extremities: No edema, Capillary Refill Less than 3 Seconds Skin: No rashes, No breakdown Musculoskeletal: No Tenderness to Palpation of Joints or Extremities Neurological: No focal neurological deficits, Motor Exam 5/5 strength throughout, Sensory exam intact to light touch and pain Psych/Mental Status: Anxious and restless Assessment & Plan Assessment/Plan (1) Depression: (2) Anxiety: (3) Methamphetamine abuse: (4) Opiate abuse, continuous: PLAN: Plan 1. Requesting detox from opiates and methamphetamines/anxiety/depression ? Continue with the opiate withdrawal protocol, started her buprenorphine this morning ? She has discontinued all of her home medications including Wellbutrin, Remeron, Seroquel ? Would recommend follow-up with psych on discharge ? 180 met with her and is requesting inpatient placement on discharge DVT: Ambulation Charges/Coding Visit Charges Inpatient E&M: 55853 Subs Hosp L2 12/09/24 0907 <Electronically signed by Ezio Mclean MD> Cosigner Signature (if applicable): CC: ~ Signed [facility] Work Phone: 1(607) 455-682507-23-2025 Progress note [facility] Medical Records Department [address] [place] [address] Progress Note - Hospitalist 12/09/24 09 MR#: [id number] Acct: [id number] Name: CHRISTA COLBERT Rep #:[id number] : 1990 34 From: Ezio green MD PCP: Dr. Odin Abraham MD Status:ADM IN Location: [place] [address] Subjective Subjective Diaphoretic and shaky today CIWA scores of 9 so she started her Subutex taper Objective Data Objective Data Vital Signs: Vital Signs Temp Pulse Resp BP Pulse Ox O2 Del Method 98.1 F 93 16 91/44 L 99 Room Air 12/09/24 08:01 12/09/24 08:01 12/09/24 08:01 12/09/24 08:01 12/09/24 08:01 12/09/24 08:01 Oxygen Delivery Method Room Air Weight: 148 lb 2.41 oz Body Mass Index (BMI) 21.2 Intake & Output: Intake and Output for Last 24 Hours 12/08/24 12/09/24 12/10/24 03:59 03:59 03:59 Intake Total 200 / 200 200 / 200 Balance 200 / 200 200 / 200 Lab / Micro Data 12/07/24 19:50 12/07/24 19:50 Physical Exam Narrative General: Alert, Oriented x3, Cooperative, No apparent distress, diaphoretic HEENT: Atraumatic, PERRLA, EOMI, Normocephalic Oral: Moist Mucosa Neck: Supple, No JVD Lungs: Clear to auscultation, Normal air movement, No rhonchi, No wheeze, No rales Cardiovascular: Regular rate, Regular Rhythm, Normal S1, Normal S2, No murmurs Abdomen: Soft, Non Tender, Non-Distended, No Hepato-splenomegaly Extremities: No edema, Capillary Refill Less than 3 Seconds Skin: No rashes, No breakdown Musculoskeletal: No Tenderness to Palpation of Joints or Extremities Neurological: No focal neurological deficits, Motor Exam 5/5 strength throughout, Sensory exam intact to light touch and pain Psych/Mental Status: Anxious and restless Assessment & Plan Assessment/Plan (1) Depression: (2) Anxiety: (3) Methamphetamine abuse: (4) Opiate abuse, continuous: PLAN: Plan 1. Requesting detox from opiates and methamphetamines/anxiety/depression ? Continue with the opiate withdrawal protocol, started her buprenorphine this morning ? She has discontinued all of her home medications including Wellbutrin, Remeron, Seroquel ? Would recommend follow-up with psych on discharge ? 180 met with her and is requesting inpatient placement on discharge DVT: Ambulation Charges/Coding Visit Charges Inpatient E&M: 82997 Subs Hosp L2 12/09/24 0907 Cosigner Signature (if applicable): CC: ~ Signed [facility]07-22-2025 Progress note Author Ezio Mclean [facility] Note Date/Time December 08, 2024 1:21 pm [facility] Medical Records Department [address] [place] [address] Progress Note - Hospitalist 12/08/24 1309 MR#: [id number] Acct: [id number] Name: CHRISTA COLBERT Rep #:[id number] : 1990 34 From: Ezio green MD PCP: Dr. Odin Abraham MD Status:ADM IN Location: [facility] [id number] Subjective Subjective Resting comfortably, no issues overnight. COWS score of 4, she has not triggered the need for medications at the moment Objective Data Objective Data Vital Signs: Vital Signs Temp Pulse Resp BP Pulse Ox O2 Del Method 98.4 F 80 18 114/71 99 Room Air 12/08/24 08:07 12/08/24 08:07 12/08/24 08:07 12/08/24 08:07 12/08/24 08:07 12/08/24 08:08 Oxygen Delivery Method Room Air Weight: 148 lb 2.41 oz Body Mass Index (BMI) 21.2 Lab / Micro Data 12/07/24 19:50 12/07/24 19:50 Labs: Laboratory Results - last 24 hr 12/07/24 19:50: WBC 4.5, RBC 3.99 L, Hgb 12.0, Hct 34.9 L, MCV 87.5, MCH 30.1, MCHC 34.4, RDW Std Deviation 41.5, RDW Coeff of Jose 13.1, Plt Count 216, MPV 9.4, Immature Gran % (Auto) 0.200, Neut % (Auto) 54.5, Lymph % (Auto) 38.0, Luna% (Auto) 6.9, Eos % (Auto) 0.0, Baso % (Auto) 0.4, Absolute Neuts (auto) 2.4, Absolute Lymphs (auto) 1.70, Nucleated RBC % 0, Differential Comment SCANNED, Platelet Estimate ADEQUATE, Sodium 139, Potassium 3.9, Chloride 104, Carbon Dioxide 23.1, Anion Gap 12, BUN 12, Creatinine 0.72, Estim Creat Clear Calc 117.70, Est GFR (MDRD) Non-Af 112, BUN/Creatinine Ratio 17.0, Glucose 112 H, Calcium 9.1, Serum , Qual NEGATIVE, Ethyl Alcohol < 10.1 12/07/24 21:30: Urine Opiates Screen NEGATIVE, U Buprenorphine Qual NEGATIVE, UrOxycodone Screen NEGATIVE, Urine Methadone Screen NEGATIVE, Urine Fentanyl Screen PRESUMPTIVE POSITIVE, Ur Barbiturates Screen NEGATIVE, Ur Phencyclidine Scrn NEGATIVE, Ur Amphetamines Screen PRESUMPTIVE POSITIVE, U Benzodiazepines Scrn NEGATIVE, Urine Cocaine Screen NEGATIVE, U Cannabinoids Screen NEGATIVE Physical Exam Narrative General: Alert, Oriented x3, Cooperative, No apparent distress HEENT: Atraumatic, PERRLA, EOMI, Normocephalic Oral: Moist Mucosa Neck: Supple, No JVD Lungs: Clear to auscultation, Normal air movement, No rhonchi, No wheeze, No rales Cardiovascular: Regular rate, Regular Rhythm, Normal S1, Normal S2, No murmurs Abdomen: Soft, Non Tender, Non-Distended, No Hepato-splenomegaly Extremities: No edema, Capillary Refill Less than 3 Seconds Skin: No rashes, No breakdown Musculoskeletal: No Tenderness to Palpation of Joints or Extremities Neurological: No focal neurological deficits, Motor Exam 5/5 strength throughout, Sensory exam intact to light touch and pain Psych/Mental Status: Normal Affect, Appropriate Assessment & Plan Assessment/Plan (1) Depression: (2) Anxiety: (3) Methamphetamine abuse: (4) Opiate abuse, continuous: PLAN: Plan 1. Requesting detox from opiates and methamphetamines/anxiety/depression ? Continue with the opiate withdrawal protocol, currently she is not requiring any medications for stabilization ? She has discontinued all of her home medications including Wellbutrin, Remeron, Seroquel ? Would recommend follow-up with psych on discharge ? 180 met with her and is requesting inpatient placement on discharge DVT: Ambulation Charges/Coding Visit Charges Inpatient E&M: 87260 Subs Hosp L2 12/08/24 1321 <Electronically signed by Ezio Mclean MD> Cosigner Signature (if applicable): CC: ~ Signed [facility] Work Phone: 1([phone]) 534-190107-22-2025 Progress note [facility] Medical Records Department [address] [place] [address] Progress Note - Hospitalist 12/08/24 1309 MR#: [id number] Acct: [id number] Name: CHRISTA COLBERT Rep #:[id number] : 1990 34 From: Ezio green MD PCP: Dr. Odni Abraham MD Status:ADM IN Location: [facility] PP655-5 Subjective Subjective Resting comfortably, no issues overnight. COWS score of 4, she has not triggered the need for medications at the moment Objective Data Objective Data Vital Signs: Vital Signs Temp Pulse Resp BP Pulse Ox O2 Del Method 98.4 F 80 18 114/71 99 Room Air 12/08/24 08:07 12/08/24 08:07 12/08/24 08:07 12/08/24 08:07 12/08/24 08:07 12/08/24 08:08 Oxygen Delivery Method Room Air Weight: 148 lb 2.41 oz Body Mass Index (BMI) 21.2 Lab / Micro Data 12/07/24 19:50 12/07/24 19:50 Labs: Laboratory Results - last 24 hr 12/07/24 19:50: WBC 4.5, RBC 3.99 L, Hgb 12.0, Hct 34.9 L, MCV 87.5, MCH 30.1, MCHC 34.4, RDW Std Deviation 41.5, RDW Coeff of Jose 13.1, Plt Count 216, MPV 9.4, Immature Gran % (Auto) 0.200, Neut % (Auto) 54.5, Lymph % (Auto) 38.0, Luna% (Auto) 6.9, Eos % (Auto) 0.0, Baso % (Auto) 0.4, Absolute Neuts (auto) 2.4, Absolute Lymphs (auto) 1.70, Nucleated RBC % 0, Differential Comment SCANNED, Platelet Estimate ADEQUATE, Sodium 139, Potassium 3.9, Chloride 104, Carbon Dioxide 23.1, Anion Gap 12, BUN12, Creatinine 0.72, Estim Creat Clear Calc 117.70, Est GFR (MDRD) Non-Af 112, BUN/Creatinine Ratio17.0, Glucose 112 H, Calcium 9.1, Serum , Qual NEGATIVE, Ethyl Alcohol < 10.1 12/07/24 21:30: Urine Opiates Screen NEGATIVE, U Buprenorphine Qual NEGATIVE, UrOxycodone Screen NEGATIVE, Urine Methadone Screen NEGATIVE, Urine Fentanyl Screen PRESUMPTIVE POSITIVE, Ur BarbituratesScreen NEGATIVE, Ur Phencyclidine Scrn NEGATIVE, Ur Amphetamines Screen PRESUMPTIVE POSITIVE, U Benzodiazepines Scrn NEGATIVE, Urine Cocaine Screen NEGATIVE, U Cannabinoids Screen NEGATIVE Physical Exam Narrative General: Alert, Oriented x3, Cooperative, No apparent distress HEENT: Atraumatic, PERRLA, EOMI, Normocephalic Oral: Moist Mucosa Neck: Supple, No JVD Lungs: Clear to auscultation, Normal air movement, No rhonchi, No wheeze, No rales Cardiovascular: Regular rate, Regular Rhythm, Normal S1, Normal S2, No murmurs Abdomen: Soft, Non Tender, Non-Distended, No Hepato-splenomegaly Extremities: No edema, Capillary Refill Less than 3 Seconds Skin: No rashes, No breakdown Musculoskeletal: No Tenderness to Palpation of Joints or Extremities Neurological: No focal neurological deficits, Motor Exam 5/5 strength throughout, Sensory exam intact to light touch and pain Psych/Mental Status: Normal Affect, Appropriate Assessment & Plan Assessment/Plan (1) Depression: (2) Anxiety: (3) Methamphetamine abuse: (4) Opiate abuse, continuous: PLAN: Plan 1. Requesting detox from opiates and methamphetamines/anxiety/depression ? Continue with the opiate withdrawal protocol, currently she is not requiring any medications for stabilization ? She has discontinued all of her home medications including Wellbutrin, Remeron, Seroquel ? Would recommend follow-up with psych on discharge ? 180 met with her and is requesting inpatient placement on discharge DVT: Ambulation Charges/Coding Visit Charges Inpatient E&M: 13881 Subs Hosp L2 12/08/24 1321 Cosigner Signature (if applicable): CC: ~ Signed [facility]07-22-2025 Evaluation note* Diagnosis Onset Date Resolution Status Admit Date Anxiety acute December 07 11:23pm Depression acute December 07 11:23pm Methamphetamine abuse acute Nov 11:23pm Opiate abuse, continuous acute December 07, 2024 11:23pm [facility] Work Phone: 1([phone]) 788-864507-22-2025 Evaluation note* Diagnosis Onset Date Resolution Status Admit Date Methamphetamine abuse acute Nov 11:23pm Opiate abuse, continuous acute December 07, 2024 11:23pm Anxiety inactive December 07 11:23pm Depression inactive December 07 11:23pm [facility] Work Phone: 1([phone]) 868-385907-22-2025 History and physical note Author Yrn Yepez [facility] Note Date/Time December 07, 2024 11:2 3pm [facility] Medical Records Department [address] [place] [address] History & Physical Exam 12/07/24 2317 MR#: [id number] Acct: [id number] Name: CHRISTA COLBERT Rep #:[id number] : 1990 34 From: Yrn Yepez MD PCP: Dr. Odin Abraham MD Status:ADM IN Location: [place] SF670-5 HPI - General General Date of Admission: 12/07/24 Date of Service: 12/07/24 Chief Complaint: Opiate withdrawal and methamphetamine abuse HPI Narrative CHRISTA COLBERT, is a 34 F who presents to the emergency room with chief complaint of requesting withdrawal support from opiates and methamphetamine. Patient has a long-term drug addiction history but states after she had been sober for nearly 3 years but had lost her sober housing situation and relapsed. Patient admits to some nausea and vomiting and irritability. Patient states shelast used meth and fentanyl earlier today around noon. She is requesting support for withdrawal and detoxification. Patient denies any other chronic medical history and denies chest pain or shortness of breath or fevers or chillsat present time [facility] Medical History HPV in female Back problem Substance abuse Smoker Irregular heart beat PTSD (post-traumatic stress disorder) Depression Anxiety Asthma Home Medications ?Medication ?Instructions ?Recorded ?Last Taken ?Type levonorgestrel (Mirena) 1 device intrauterine ONCE 1 Unknown History fexofenadine 180 mg tablet 180 mg PO DAILY PRN 4 Unknown History (Carol Allergy) fluticasone propionate 50 1 spray intranasal DAILY PRN 09/05/23 Unknown History mcg/actuation nasal spray,suspension (Flonase Allergy Relief) aluminum chloride 20 % topical 1 applic topical 2XW #6 0 mL 03/17/24 Unknown Rx solution (Drysol Dab-O-Matic) quetiapine 100 mg tablet 100 mg PO QHS #30 tabs 05/18 Unknown Rx mirtazapine 15 mg tablet (Remeron) 15 mg PO DAILY #90 tabs 05/26/24 Unknown Rx bupropion HCl 200 mg tablet,12 hr 200 mg PO BID #60 ea 06/02/24 Unknown Rx sustained-release Allergy/AdvReac Type Severity Reaction Status Date / Time No Known Allergies Allergy Verified 12/07/24 19:29 Family History Father Myocardial infarction 70s Hypertension Surgical History History of removal of cyst Vaughn teeth extracted Social History household members: other details: sober living current occupational status: employed current occupation: [employer] ([place]) Smoking Status: Current every day smoker tobacco type: e-cigarettes Electronic Cigarette Use: not used alcohol intake: former details: 2021 substance use type: former substance user Date of last use: 06/28/2021, heroin and opiates do you feel safe at home: Yes ROS Constitutional Constitutional: Denies chills or fever(s) Eyes Eyes: Denies blurry vision ENT HEENT: Denies abnormal hearing Cardiovascular Cardiovascular: Denies chest pain Respiratory/Chest Respiratory/Chest: Denies shortness of breath at rest Gastrointestinal Gastrointestinal: Reports nausea and vomiting; Denies abdominal pain Genitourinary Genitourinary: Denies dysuria Musculoskeletal Musculoskeletal: Denies back pain Integumentary Integumentary: Reports dry skin Neurologic Neurologic: Denies abnormal speech Psychiatric Psychiatric: Reports anxiety Vital Signs Vital Signs Vital Signs: 12/07/24 19:27 12/07/24 21:27 12/07/24 22:00 Temperature 98.3 F 97.9 F Temperature Source Oral Pulse Rate 106 H 88 Respiratory Rate 16 20 H 18 Blood Pressure 151/104 H 112/60 122/77 H Blood Pressure Mean 119 77 92 Pulse Ox 100 100 100 Oxygen Delivery Method Room Air Room Air 12/07/24 23:00 Temperature Temperature Source Pulse Rate Respiratory Rate 20 H Blood Pressure Blood Pressure Mean Pulse Ox 100 Oxygen Delivery Method Weight Weight: 149 lb 4.8 oz Body Mass Index (BMI) 21.4 Physical Exam Const oriented x3 General Appearance: cooperative and well developed HEENT normocephalic and head/scalp atraumatic Eyes PERRL Neck no lymphadenopathy Lymph Lymphatic: no lymphadenopathy noted Resp normal respiratory effort, normal air movement and clear to auscultation bilaterally Cardio regular rate, regular rhythm, S1 normal heart sound and S2 normal heart sound GI normal to inspection, nondistended, normoactive bowel sounds Extremity normal capillary refill Skin General Skin Exam: no breakdown Neuro no focal motor deficits and no sensory deficits noted Psych Mood & Affect: anxious Results Lab / Micro Data 12/07/24 19:50 12/07/24 19:50 Labs: Laboratory Results - last 24 hr 12/07/24 19:50: WBC 4.5, RBC 3.99 L, Hgb 12.0, Hct 34.9 L, MCV 87.5, MCH 30.1, MCHC 34.4, RDW Std Deviation 41.5, RDW Coeff of Jose 13.1, Plt Count 216, MPV 9.4, Immature Gran % (Auto) 0.200, Neut % (Auto) 54.5, Lymph % (Auto) 38.0, Luna% (Auto) 6.9, Eos % (Auto) 0.0, Baso % (Auto) 0.4, Absolute Neuts (auto) 2.4, Absolute Lymphs (auto) 1.70, Nucleated RBC % 0, Differential Comment SCANNED, Platelet Estimate ADEQUATE, Sodium 139, Potassium 3.9, Chloride 104, Carbon Dioxide 23.1, Anion Gap 12, BUN 12, Creatinine 0.72, Estim Creat Clear Calc 117.70, Est GFR (MDRD) Non-Af 112, BUN/Creatinine Ratio 17.0, Glucose 112 H, Calcium 9.1, Serum , Qual NEGATIVE, Ethyl Alcohol < 10.1 12/07/24 21:30: Urine Opiates Screen NEGATIVE, U Buprenorphine Qual NEGATIVE, UrOxycodone Screen NEGATIVE, Urine Methadone Screen NEGATIVE, Urine Fentanyl Screen PRESUMPTIVE POSITIVE, Ur Barbiturates Screen NEGATIVE, Ur Phencyclidine Scrn NEGATIVE, Ur Amphetamines Screen PRESUMPTIVE POSITIVE, U Benzodiazepines Scrn NEGATIVE, Urine Cocaine Screen NEGATIVE, U Cannabinoids Screen NEGATIVE Assessment & Plan Assessment/Plan (1) Depression: (2) Anxiety: (3) Methamphetamine abuse: (4) Opiate abuse, continuous: PLAN: Plan 1 withdrawal and detoxification from opiates and methamphetamine?admit patient to general medical floor Place patient on opiate withdrawal protocol and consultcase management for discharge planning and long-term treatment options 2. History of depression and anxiety?not currently taking any medications stable at present time will recommend reevaluation at discharge with provider who can manage long-term care 3. DVT prophylaxis test patient is ambulatory and low risk for DVT at present time Charges/Coding Visit Charges Inpatient E&M: 08319 Init Hosp L2 12/07/24 2323 <Electronically signed by Yrn Yepez MD> Cosigner Signature (if applicable): CC: Dr. Odin Abraham MD; Dr. Yrn Yepez MD~ Signed [facility] Work Phone: 1(896) 808-817307-22-2025 Discharge summary Author Jaden Roberson-Mary Jo [facility] Note Date/Time December 07, 2024 11:0 9pm [facility] Medical Records Department [address] [place] [address] Emergency Department Summary 12/07/24 MR#: [id number] Acct: [id number] Name: CHRISTA COLBERT Rep #:[id number] : 1990 34 From: Jaden mcgowanett DO PCP: Dr. Odin Abraham MD Status:REG ER Location: ED HPI History of Present Illness Chief Complaint: Substance Abuse Narrative Narrative: Chief complaint and HPI: Requesting polysubstance detox. 34-year-old female with past medical history of fentanyl and methamphetamine abuse presents requesting polysubstance detox. Last used this morning. Currently denies any withdrawal symptoms. Denies any nausea or vomiting. Review of systems: See HPI Medications: As listed on the chart Allergies: As listed on the chart PFSH: Per chart Vital signs: As listed on the chart. Reviewed. Physical exam: Gen: A&O x3, NAD Head: Normocephalic, atraumatic Eyes: No sclera icterus, conjunctiva clear ENT: Moist mucous membranes Neck: Trachea midline, No JVD CV: RRR, no murmurs, no peripheral edema Resp: Lungs CTA BL, no w/r/c GI: Abd soft, non-distended, non-tender, no r/r/g Musc: Full ROM, no deformity Skin: Warm, dry Neuro: Alert, oriented, grossly intact, sensation intact Psych: Cooperative, appropriate mood and affect [facility] Medical History HPV in female Back problem Substance abuse Smoker Irregular heart beat PTSD (post-traumatic stress disorder) Depression Anxiety Asthma Home Medications ?Medication ?Instructions ?Recorded ?Last Taken ?Type levonorgestrel (Mirena) 1 device intrauterine ONCE 1 Unknown History fexofenadine 180 mg tablet 180 mg PO DAILY PRN 4 Unknown History (Carol Allergy) fluticasone propionate 50 1 spray intranasal DAILY PRN 09/05/23 Unknown History mcg/actuation nasal spray,suspension (Flonase Allergy Relief) aluminum chloride 20 % topical 1 applic topical 2XW #6 0 mL 03/17/24 Unknown Rx solution (Drysol Dab-O-Matic) quetiapine 100 mg tablet 100 mg PO QHS #30 tabs 05/18 Unknown Rx mirtazapine 15 mg tablet (Remeron) 15 mg PO DAILY #90 tabs 05/26/24 Unknown Rx bupropion HCl 200 mg tablet,12 hr 200 mg PO BID #60 ea 06/02/24 Unknown Rx sustained-release Allergy/AdvReac Type Severity Reaction Status Date / Time No Known Allergies Allergy Verified 12/07/24 19:29 Family History Father Myocardial infarction 70s Hypertension Surgical History History of removal of cyst Vaughn teeth extracted Social History household members: other details: sober living current occupational status: employed current occupation: [employer] ([place]) Smoking Status: Current every day smoker tobacco type: e-cigarettes Electronic Cigarette Use: not used alcohol intake: former details: 2021 substance use type: former substance user Date of last use: 06/28/2021, heroin and opiates do you feel safe at home: Yes EXAM Physical Exam Const Vital Signs: 12/07/24 19:27 12/07/24 21:27 12/07/24 22:00 Temperature 98.3 F 97.9 F Temperature Source Oral Pulse Rate 106 H 88 Respiratory Rate 16 20 H 18 Blood Pressure 151/104 H 112/60 122/77 H Blood Pressure Mean 119 77 92 Pulse Ox 100 100 100 Oxygen Delivery Method Room Air Room Air MDM MDM MDM Narrative Medical decision making narrative: 34-year-old female with past medical history of fentanyl and methamphetamine abuse presents requesting polysubstance detox. Last used this morning. Currently denies any withdrawal symptoms. Placement labs were ordered in triageper protocol. I agree with the labs that was ordered. CBC without leukocytosisor anemia. BMP unremarkable. Serum negative. Urine drug screen positive for fentanyl and amphetamines. Alcohol level unremarkable. Patient will warrant admission for her polysubstance drug abuse and requesting detox. Patient discussed with the hospitalist who accepted admission. Impression: 1. Polysubstance abuse including fentanyl and methamphetamine 2. Requesting detox Lab Data Labs: Laboratory Results - last 24 hr 12/07/24 12/07/24 19:50 21:30 WBC 4.5 RBC 3.99 L Hgb 12.0 Hct 34.9 L MCV 87.5 MCH 30.1 MCHC 34.4 RDW Std Deviation 41.5 RDW Coeff of Jose 13.1 Plt Count 216 MPV 9.4 Immature Gran % (Auto) 0.200 Neut % (Auto) 54.5 Lymph % (Auto) 38.0 Luna % (Auto) 6.9 Eos % (Auto) 0.0 Baso % (Auto) 0.4 Absolute Neuts (auto) 2.4 Absolute Lymphs (auto) 1.70 Nucleated RBC % 0 Differential Comment SCANNED Platelet Estimate ADEQUATE Sodium 139 Potassium 3.9 Chloride 104 Carbon Dioxide 23.1 Anion Gap 12 BUN 12 Creatinine 0.72 Estim Creat Clear Calc 117.70 Est GFR (MDRD) Non-Af 112 BUN/Creatinine Ratio 17.0 Glucose 112 H Calcium 9.1 Serum , Qual NEGATIVE Urine Opiates Screen NEGATIVE U Buprenorphine Qual NEGATIVE Ur Oxycodone Screen NEGATIVE Urine Methadone Screen NEGATIVE Urine Fentanyl Screen PRESUMPTIVE POSITIVE Ur Barbiturates Screen NEGATIVE Ur Phencyclidine Scrn NEGATIVE Ur Amphetamines Screen PRESUMPTIVE POSITIVE U Benzodiazepines Scrn NEGATIVE Urine Cocaine Screen NEGATIVE U Cannabinoids Screen NEGATIVE Ethyl Alcohol < 10.1 Discharge Plan Triage Chief Complaint: Substance Abuse ED Provider: Jaden Yepez Dx/Rx/DC Orders Prescriptions: No Action Mirena 21 mcg/24 hours (8 yrs) 52 mg intrauterine device 1 device intrauterine ONCE Rx Instructions: as a single dose fexofenadine [Carol Allergy] 180 mg tablet 180 mg PO DAILY PRN fluticasone propionate [Flonase Allergy Relief] 50 mcg/actuation spray,suspension 1 spray intranasal DAILY PRN Rx Instructions: administer into each nostril Drysol Dab-O-Matic 20 % solution 1 applic topical 2XW Qty: 60 1RF quetiapine 100 mg tablet 100 mg PO QHS Qty: 30 0RF Patient Comments: has not been taking recently mirtazapine [Remeron] 15 mg tablet 15 mg PO DAILY Qty: 90 0RF Patient Comments: has not been taking recently bupropion HCl 200 mg tablet sustained-release 12 hr 200 mg PO BID Qty: 60 1RF Patient Comments: has not been taking recently Primary Care Provider: Odin Abraham Referrals: Odin Abraham MD [Primary Care Provider] - Print Language: Burkinan What to do if you have Problems For any increased pain, shortness of breath, bleeding, nausea or vomiting, chestpain, or any unexpected problems, contact your Primary Care Provider. Call [facility] ([phone]) or report to the closest Emergency Room. Call 911 if necessary. 12/07/249 <Electronically signed by Jaden Yepez DO> Cosigner Signature (if applicable): CC: Dr. Odin Abraham MD ~ Signed [facility] Work Phone: 1(707) 519-667607-21-2025 Evaluation note* Diagnosis Onset Date Resolution Status Admit Date Anxiety acute December 07 9:23pm Depression acute December 07 9:23pm Methamphetamine abuse acute Nov 9:23pm Opiate abuse, continuous acute December 07, 2024 9:23pm [facility] Work Phone: 1(660) 261-822807-21-2025 History and physical note [facility] Medical Records Department [address] [place] [address] History & Physical Exam 12/07/24 2317 MR#: [id number] Acct: [id number] Name: CHRISTA COLBERT Rep #:[id number] : 1990 34 From: Yrn Yepez MD PCP: Dr. Odin Abraham MD Status:ADM IN Location: [facility] TF340-3 HPI - General General Date of Admission: 12/07/24 Date of Service: 12/07/24 Chief Complaint: Opiate withdrawal and methamphetamine abuse HPI Narrative CHRISTA COLBERT, is a 34 F who presents to the emergency room with chief complaint of requesting withdrawal support from opiates and methamphetamine. Patient has a long-term drug addiction history butstates after 22 she had been sober for nearly 3 years but had lost her sober housing situation and relapsed. Patient admits to some nausea and vomiting and irritability. Patient states shelast used meth and fentanyl earlier today around noon. She is requesting support for withdrawal and detoxification. Patient denies any other chronic medical history and denies chest pain or shortness of breath or fevers or chillsat present time [facility] Medical History HPV in female Back problem Substance abuse Smoker Irregular heart beat PTSD (post-traumatic stress disorder) Depression Anxiety Asthma Home Medications ?Medication ?Instructions ?Recorded ?Last Taken ?Type levonorgestrel (Mirena) 1 device intrauterine ONCE 1 Unknown History fexofenadine 180 mg tablet 180 mg PO DAILY PRN 4 Unknown History (Carol Allergy) fluticasone propionate 50 1 spray intranasal DAILY PRN 09/05/23 Unknown History mcg/actuation nasal spray,suspension (Flonase Allergy Relief) aluminum chloride 20 % topical 1 applic topical 2XW #6 0 mL 03/17/24 Unknown Rx solution (Drysol Dab-O-Matic) quetiapine 100 mg tablet 100 mg PO QHS #30 tabs 05/18 Unknown Rx mirtazapine 15 mg tablet (Remeron) 15 mg PO DAILY #90 tabs 05/26/24 Unknown Rx bupropion HCl 200 mg tablet,12 hr 200 mg PO BID #60 ea 06/02/24 Unknown Rx sustained-release Allergy/AdvReac Type Severity Reaction Status Date / Time No Known Allergies Allergy Verified 12/07/24 19:29 Family History Father Myocardial infarction 70s Hypertension Surgical History History of removal of cyst Vaughn teeth extracted Social History household members: other details: sober living current occupational status: employed current occupation: [employer] ([place]) Smoking Status: Current every day smoker tobacco type: e-cigarettes Electronic Cigarette Use: not used alcohol intake: former details: 2021 substance use type: former substance user Date of last use: 06/28/2021, heroin and opiates do you feel safe at home: Yes ROS Constitutional Constitutional: Denies chills or fever(s) Eyes Eyes: Denies blurry vision ENT HEENT: Denies abnormal hearing Cardiovascular Cardiovascular: Denies chest pain Respiratory/Chest Respiratory/Chest: Denies shortness of breath at rest Gastrointestinal Gastrointestinal: Reports nausea and vomiting; Denies abdominal pain Genitourinary Genitourinary: Denies dysuria Musculoskeletal Musculoskeletal: Denies back pain Integumentary Integumentary: Reports dry skin Neurologic Neurologic: Denies abnormal speech Psychiatric Psychiatric: Reports anxiety Vital Signs Vital Signs Vital Signs: 12/07/24 19:27 12/07/24 21:27 12/07/24 22:00 Temperature 98.3 F 97.9 F Temperature Source Oral Pulse Rate 106 H 88 Respiratory Rate 16 20 H 18 Blood Pressure 151/104 H 112/60 122/77 H Blood Pressure Mean 119 77 92 Pulse Ox 100 100 100 Oxygen Delivery Method Room Air Room Air 12/07/24 23:00 Temperature Temperature Source Pulse Rate Respiratory Rate 20 H Blood Pressure Blood Pressure Mean Pulse Ox 100 Oxygen Delivery Method Weight Weight: 149 lb 4.8 oz Body Mass Index (BMI) 21.4 Physical Exam Const oriented x3 General Appearance: cooperative and well developed HEENT normocephalic and head/scalp atraumatic Eyes PERRL Neck no lymphadenopathy Lymph Lymphatic: no lymphadenopathy noted Resp normal respiratory effort, normal air movement and clear to auscultation bilaterally Cardio regular rate, regular rhythm, S1 normal heart sound and S2 normal heart sound GI normal to inspection, nondistended, normoactive bowel sounds Extremity normal capillary refill Skin General Skin Exam: no breakdown Neuro no focal motor deficits and no sensory deficits noted Psych Mood & Affect: anxious Results Lab / Micro Data 12/07/24 19:50 12/07/24 19:50 Labs: Laboratory Results - last 24 hr 12/07/24 19:50: WBC 4.5, RBC 3.99 L, Hgb 12.0, Hct 34.9 L, MCV 87.5, MCH 30.1, MCHC 34.4, RDW Std Deviation 41.5, RDW Coeff of Jose 13.1, Plt Count 216, MPV 9.4, Immature Gran % (Auto) 0.200, Neut % (Auto) 54.5, Lymph % (Auto) 38.0, Luna% (Auto) 6.9, Eos % (Auto) 0.0, Baso % (Auto) 0.4, Absolute Neuts (auto) 2.4, Absolute Lymphs (auto) 1.70, Nucleated RBC % 0, Differential Comment SCANNED, Platelet Estimate ADEQUATE, Sodium 139, Potassium 3.9, Chloride 104, Carbon Dioxide 23.1, Anion Gap 12, BUN12, Creatinine 0.72, Estim Creat Clear Calc 117.70, Est GFR (MDRD) Non-Af 112, BUN/Creatinine Ratio17.0, Glucose 112 H, Calcium 9.1, Serum , Qual NEGATIVE, Ethyl Alcohol < 10.1 12/07/24 21:30: Urine Opiates Screen NEGATIVE, U Buprenorphine Qual NEGATIVE, UrOxycodone Screen NEGATIVE, Urine Methadone Screen NEGATIVE, Urine Fentanyl Screen PRESUMPTIVE POSITIVE, Ur BarbituratesScreen NEGATIVE, Ur Phencyclidine Scrn NEGATIVE, Ur Amphetamines Screen PRESUMPTIVE POSITIVE, U Benzodiazepines Scrn NEGATIVE, Urine Cocaine Screen NEGATIVE, U Cannabinoids Screen NEGATIVE Assessment & Plan Assessment/Plan (1) Depression: (2) Anxiety: (3) Methamphetamine abuse: (4) Opiate abuse, continuous: PLAN: Plan 1 withdrawal and detoxification from opiates and methamphetamine?admit patient to general medical floor Place patient on opiate withdrawal protocol and consultcase management for discharge planning and long-term treatment options 2. History of depression and anxiety?not currently taking any medications stable at present time will recommend reevaluation at discharge with provider who can manage long-term care 3. DVT prophylaxis test patient is ambulatory and low risk for DVT at present time Charges/Coding Visit Charges Inpatient E&M: 05134 Init Hosp L2 12/07/24 2323 Cosigner Signature (if applicable): CC: Dr. Odin Abraham MD; Dr. Yrn Yepez MD~ Signed [facility]07-21-2025 [facility] Medical Records Department [address] [place] [address] History Physical Exam 12/07/24 2317 MR#: [id number] Acct: [id number] Name: CHRISTA COLBERT Rep #: [id number] : 1990 34 From: Yrn Yepez MD PCP: Dr. Odin Abraham MD Status:ADM IN Location: [facility] SD932-4 HPI - General General Date of Admission: 12/07/24 Date of Service: 12/07/24 Chief Complaint: Opiate withdrawal and methamphetamine abuse HPI Narrative CHRISTA COLBERT, is a 34 F who presents to the emergency room with chief complaint of requesting withdrawal support from opiates and methamphetamine. Patient has a long-term drug addiction history but states after 22 she had been sober for nearly 3 years but had lost her sober housing situation and relapsed. Patient admits to some nausea and vomiting and irritability. Patient states she last used meth and fentanyl earlier today around noon. She is requesting support for withdrawal and detoxification. Patient denies any other chronic medical history and denies chest pain or shortness of breath or fevers or chills at present time [facility] Medical History HPV in female Back problem Substance abuse Smoker Irregular heart beat PTSD (post-traumatic stress disorder) Depression Anxiety Asthma Home Medications ???Medication ???Instructions ???Recorded ???Last Taken ???Type levonorgestrel (Mirena) 1 device intrauterine ONCE 3 Unknown History fexofenadine 180 mg tablet 180 mg PO DAILY PRN 09/05/23 Unkno wn History (Carol Allergy) fluticasone propionate 50 1 spray intranasal DAILY PRN 09/04 Unknown History mcg/actuation nasal spray,suspension (Flonase Allergy Relief) aluminum chloride 20 % topical 1 applic topical 2XW #60 mL Unknown Rx solution (Drysol Dab-O-Matic) quetiapine 100 mg tablet 100 mg PO QHS #30 tabs 05/18/24 Un known Rx mirtazapine 15 mg tablet (Remeron) 15 mg PO DAILY #90 tabs 05/26/24 Unknown Rx bupropion HCl 200 mg tablet,12 hr 200 mg PO BID #60 ea 06/02/24 Unk nown Rx sustained-release Allergy/AdvReac Type Severity Reaction Status Date / Time No Known Allergies Allergy Verified 12/07/24 19:29 Family History Father Myocardial infarction 70s Hypertension Surgical History History of removal of cyst Vaughn teeth extracted Social History household members: other details: sober living current occupational status: employed current occupation: [employer] ([place]) Smoking Status: Current every day smoker tobacco type: e-cigarettes Electronic Cigarette Use: not used alcohol intake: former details: 2021 substance use type: former substance user Date of last use: 06/28/2021, heroin and opiates do you feel safe at home: Yes ROS Constitutional Constitutional: Denies chills or fever(s) Eyes Eyes: Denies blurry vision ENT HEENT: Denies abnormal hearing Cardiovascular Cardiovascular: Denies chest pain Respiratory/Chest Respiratory/Chest: Denies shortness of breath at rest Gastrointestinal Gastrointestinal: Reports nausea and vomiting; Denies abdominal pain Genitourinary Genitourinary: Denies dysuria Musculoskeletal Musculoskeletal: Denies back pain Integumentary Integumentary: Reports dry skin Neurologic Neurologic: Denies abnormal speech Psychiatric Psychiatric: Reports anxiety Vital Signs Vital Signs Vital Signs: 12/07/24 19:27 12/07/24 21:27 12/07/24 22:00 Temperature 98.3 F 97.9 F Temperature Source Oral Pulse Rate 106 H 88 Respiratory Rate 16 20 H 18 Blood Pressure 151/104 H 112/60 122/77 H Blood Pressure Mean 119 77 92 Pulse Ox 100 100 100 Oxygen Delivery Method Room Air Room Air 12/07/24 23:00 Temperature Temperature Source Pulse Rate Respiratory Rate 20 H Blood Pressure Blood Pressure Mean Pulse Ox 100 Oxygen Delivery Method Weight Weight: 149 lb 4.8 oz Body Mass Index (BMI) 21.4 Physical Exam Const oriented x3 General Appearance: cooperative and well developed HEENT normocephalic and head/scalp atraumatic Eyes PERRL Neck no lymphadenopathy Lymph Lymphatic: no lymphadenopathy noted Resp normal respiratory effort, normal air movement and clear to auscultation bilaterally Cardio regular rate, regular rhythm, S1 normal heart sound and S2 normal heart sound GI normal to inspection, nondistended, normoactive bowel sounds Extremity normal capillary refill Skin General Skin Exam: no breakdown Neuro no focal motor deficits and no sensory deficits noted (more content not included)...[facility]07-21-2025 Discharge summary [facility] Medical Records Department [address] [place] [address] Emergency Department Summary 12/07/24 MR#: [id number] Acct: [id number] Name: CHRISTA COLBERT Rep #:[id number] : 1990 34 From: Jaden cardona DO PCP: Dr. Odin Abraham MD Status:REG ER Location: ED HPI History of Present Illness Chief Complaint: Substance Abuse Narrative Narrative: Chief complaint and HPI: Requesting polysubstance detox. 34-year-old female with past medical history of fentanyl and methamphetamine abuse presents requesting polysubstance detox. Last used this morning. Currently denies any withdrawal symptoms. Denies any nausea or vomiting. Review of systems: See HPI Medications: As listed on the chart Allergies: As listed on the chart PFSH: Per chart Vital signs: As listed on the chart. Reviewed. Physical exam: Gen: A&O x3, NAD Head: Normocephalic, atraumatic Eyes: No sclera icterus, conjunctiva clear ENT: Moist mucous membranes Neck: Trachea midline, No JVD CV: RRR, no murmurs, no peripheral edema Resp: Lungs CTA BL, no w/r/c GI: Abd soft, non-distended, non-tender, no r/r/g Musc: Full ROM, no deformity Skin: Warm, dry Neuro: Alert, oriented, grossly intact, sensation intact Psych: Cooperative, appropriate mood and affect [facility] Medical History HPV in female Back problem Substance abuse Smoker Irregular heart beat PTSD (post-traumatic stress disorder) Depression Anxiety Asthma Home Medications ?Medication ?Instructions ?Recorded ?Last Taken ?Type levonorgestrel (Mirena) 1 device intrauterine ONCE 1 Unknown History fexofenadine 180 mg tablet 180 mg PO DAILY PRN 4 Unknown History (Carol Allergy) fluticasone propionate 50 1 spray intranasal DAILY PRN 09/05/23 Unknown History mcg/actuation nasal spray,suspension (Flonase Allergy Relief) aluminum chloride 20 % topical 1 applic topical 2XW #6 0 mL 03/17/24 Unknown Rx solution (Drysol Dab-O-Matic) quetiapine 100 mg tablet 100 mg PO QHS #30 tabs 05/18 Unknown Rx mirtazapine 15 mg tablet (Remeron) 15 mg PO DAILY #90 tabs 05/26/24 Unknown Rx bupropion HCl 200 mg tablet,12 hr 200 mg PO BID #60 ea 06/02/24 Unknown Rx sustained-release Allergy/AdvReac Type Severity Reaction Status Date / Time No Known Allergies Allergy Verified 12/07/24 19:29 Family History Father Myocardial infarction 70s Hypertension Surgical History History of removal of cyst Vaughn teeth extracted Social History household members: other details: sober living current occupational status: employed current occupation: [employer] ([place]) Smoking Status: Current every day smoker tobacco type: e-cigarettes Electronic Cigarette Use: not used alcohol intake: former details: 2021 substance use type: former substance user Date of last use: 06/28/2021, heroin and opiates do you feel safe at home: Yes EXAM Physical Exam Const Vital Signs: 12/07/24 19:27 12/07/24 21:27 12/07/24 22:00 Temperature 98.3 F 97.9 F Temperature Source Oral Pulse Rate 106 H 88 Respiratory Rate 16 20 H 18 Blood Pressure 151/104 H 112/60 122/77 H Blood Pressure Mean 119 77 92 Pulse Ox 100 100 100 Oxygen Delivery Method Room Air Room Air MDM MDM MDM Narrative Medical decision making narrative: 34-year-old female with past medical history of fentanyl and methamphetamine abuse presents requesting polysubstance detox. Last used this morning. Currently denies any withdrawal symptoms. Placementlabs were ordered in triageper protocol. I agree with the labs that was ordered. CBC without leukocytosisor anemia. BMP unremarkable. Serum negative. Urine drug screen positive for fentanyland amphetamines. Alcohol level unremarkable. Patient will warrant admission for her polysubstance drug abuse and requesting detox. Patient discussed with the hospitalist who accepted admission. Impression: 1. Polysubstance abuse including fentanyl and methamphetamine 2. Requesting detox Lab Data Labs: Laboratory Results - last 24 hr 12/07/24 12/07/24 19:50 21:30 WBC 4.5 RBC 3.99 L Hgb 12.0 Hct 34.9 L MCV 87.5 MCH 30.1 MCHC 34.4 RDW Std Deviation 41.5 RDW Coeff of Jose 13.1 Plt Count 216 MPV 9.4 Immature Gran % (Auto) 0.200 Neut % (Auto) 54.5 Lymph % (Auto) 38.0 Luna % (Auto) 6.9 Eos % (Auto) 0.0 Baso % (Auto) 0.4 Absolute Neuts (auto) 2.4 Absolute Lymphs (auto) 1.70 Nucleated RBC % 0 Differential Comment SCANNED Platelet Estimate ADEQUATE Sodium 139 Potassium 3.9 Chloride 104 Carbon Dioxide 23.1 Anion Gap 12 BUN 12 Creatinine 0.72 Estim Creat Clear Calc 117.70 Est GFR (MDRD) Non-Af 112 BUN/Creatinine Ratio 17.0 Glucose 112 H Calcium 9.1 Serum , Qual NEGATIVE Urine Opiates Screen NEGATIVE U Buprenorphine Qual NEGATIVE Ur Oxycodone Screen NEGATIVE Urine Methadone Screen NEGATIVE Urine Fentanyl Screen PRESUMPTIVE POSITIVE Ur Barbiturates Screen NEGATIVE Ur Phencyclidine Scrn NEGATIVE Ur Amphetamines Screen PRESUMPTIVE POSITIVE U Benzodiazepines Scrn NEGATIVE Urine Cocaine Screen NEGATIVE U Cannabinoids Screen NEGATIVE Ethyl Alcohol < 10.1 Discharge Plan Triage Chief Complaint: Substance Abuse ED Provider: Jaden Yepez Dx/Rx/DC Orders Prescriptions: No Action Mirena 21 mcg/24 hours (8 yrs) 52 mg intrauterine device 1 device intrauterine ONCE Rx Instructions: as a single dose fexofenadine [Carol Allergy] 180 mg tablet 180 mg PO DAILY PRN fluticasone propionate [Flonase Allergy Relief] 50 mcg/actuation spray,suspension 1 spray intranasal DAILY PRN Rx Instructions: administer into each nostril Drysol Dab-O-Matic 20 % solution 1 applic topical 2XW Qty: 60 1RF quetiapine 100 mg tablet 100 mg PO QHS Qty: 30 0RF Patient Comments: has not been taking recently mirtazapine [Remeron] 15 mg tablet 15 mg PO DAILY Qty: 90 0RF Patient Comments: has not been taking recently bupropion HCl 200 mg tablet sustained-release 12 hr 200 mg PO BID Qty: 60 1RF Patient Comments: has not been taking recently Primary Care Provider: Odin Abraham Referrals: Odin Abraham MD [Primary Care Provider] - Print Language: Burkinan What to do if you have Problems For any increased pain, shortness of breath, bleeding, nausea or vomiting, chestpain, or any unexpected problems, contact your Primary Care Provider. Call [facility] ([phone]) or report tothe closest Emergency Room. Call 911 if necessary. 12/07/24 5967 Cosigner Signature (if applicable): CC: Dr. Odin Abraham MD ~ Signed [facility]07-21-2025 Discharge summary Author Jaden Yepez [facility] Note Date/Time December 07, 2024 11:0 9pm [facility] Medical Records Department [address] [place] [address] Emergency Department Summary 12/07/24 MR#: [id number] Acct: [id number] Name: CHRISTA COLBERT Rep #:[id number] : 1990 34 From: Jaden Nicholas ggett DO PCP: Dr. Odin Abraham MD Status:REG ER Location: ED HPI History of Present Illness Chief Complaint: Substance Abuse Narrative Narrative: Chief complaint and HPI: Requesting polysubstance detox. 34-year-old female with past medical history of fentanyl and methamphetamine abuse presents requesting polysubstance detox. Last used this morning. Currently denies any withdrawal symptoms. Denies any nausea or vomiting. Review of systems: See HPI Medications: As listed on the chart Allergies: As listed on the chart PFSH: Per chart Vital signs: As listed on the chart. Reviewed. Physical exam: Gen: A&O x3, NAD Head: Normocephalic, atraumatic Eyes: No sclera icterus, conjunctiva clear ENT: Moist mucous membranes Neck: Trachea midline, No JVD CV: RRR, no murmurs, no peripheral edema Resp: Lungs CTA BL, no w/r/c GI: Abd soft, non-distended, non-tender, no r/r/g Musc: Full ROM, no deformity Skin: Warm, dry Neuro: Alert, oriented, grossly intact, sensation intact Psych: Cooperative, appropriate mood and affect [facility] Medical History HPV in female Back problem Substance abuse Smoker Irregular heart beat PTSD (post-traumatic stress disorder) Depression Anxiety Asthma Home Medications ?Medication ?Instructions ?Recorded ?Last Taken ?Type levonorgestrel (Mirena) 1 device intrauterine ONCE 1 Unknown History fexofenadine 180 mg tablet 180 mg PO DAILY PRN 4 Unknown History (Carol Allergy) fluticasone propionate 50 1 spray intranasal DAILY PRN 09/05/23 Unknown History mcg/actuation nasal spray,suspension (Flonase Allergy Relief) aluminum chloride 20 % topical 1 applic topical 2XW #6 0 mL 03/17/24 Unknown Rx solution (Drysol Dab-O-Matic) quetiapine 100 mg tablet 100 mg PO QHS #30 tabs 05/18 Unknown Rx mirtazapine 15 mg tablet (Remeron) 15 mg PO DAILY #90 tabs 05/26/24 Unknown Rx bupropion HCl 200 mg tablet,12 hr 200 mg PO BID #60 ea 06/02/24 Unknown Rx sustained-release Allergy/AdvReac Type Severity Reaction Status Date / Time No Known Allergies Allergy Verified 12/07/24 19:29 Family History Father Myocardial infarction 70s Hypertension Surgical History History of removal of cyst Vaughn teeth extracted Social History household members: other details: sober living current occupational status: employed current occupation: [employer] Smoking Status: Current every day smoker tobacco type: e-cigarettes Electronic Cigarette Use: not used alcohol intake: former details: 2021 substance use type: former substance user Date of last use: 06/28/2021, heroin and opiates do you feel safe at home: Yes EXAM Physical Exam Const Vital Signs: 12/07/24 19:27 12/07/24 21:27 12/07/24 22:00 Temperature 98.3 F 97.9 F Temperature Source Oral Pulse Rate 106 H 88 Respiratory Rate 16 20 H 18 Blood Pressure 151/104 H 112/60 122/77 H Blood Pressure Mean 119 77 92 Pulse Ox 100 100 100 Oxygen Delivery Method Room Air Room Air MDM MDM MDM Narrative Medical decision making narrative: 34-year-old female with past medical history of fentanyl and methamphetamine abuse presents requesting polysubstance detox. Last used this morning. Currently denies any withdrawal symptoms. Placement labs were ordered in triageper protocol. I agree with the labs that was ordered. CBC without leukocytosisor anemia. BMP unremarkable. Serum negative. Urine drug screen positive for fentanyl and amphetamines. Alcohol level unremarkable. Patient will warrant admission for her polysubstance drug abuse and requesting detox. Patient discussed with the hospitalist who accepted admission. Impression: 1. Polysubstance abuse including fentanyl and methamphetamine 2. Requesting detox Lab Data Labs: Laboratory Results - last 24 hr 12/07/24 12/07/24 19:50 21:30 WBC 4.5 RBC 3.99 L Hgb 12.0 Hct 34.9 L MCV 87.5 MCH 30.1 MCHC 34.4 RDW Std Deviation 41.5 RDW Coeff of Jose 13.1 Plt Count 216 MPV 9.4 Immature Gran % (Auto) 0.200 Neut % (Auto) 54.5 Lymph % (Auto) 38.0 Luna % (Auto) 6.9 Eos % (Auto) 0.0 Baso % (Auto) 0.4 Absolute Neuts (auto) 2.4 Absolute Lymphs (auto) 1.70 Nucleated RBC % 0 Differential Comment SCANNED Platelet Estimate ADEQUATE Sodium 139 Potassium 3.9 Chloride 104 Carbon Dioxide 23.1 Anion Gap 12 BUN 12 Creatinine 0.72 Estim Creat Clear Calc 117.70 Est GFR (MDRD) Non-Af 112 BUN/Creatinine Ratio 17.0 Glucose 112 H Calcium 9.1 Serum , Qual NEGATIVE Urine Opiates Screen NEGATIVE U Buprenorphine Qual NEGATIVE Ur Oxycodone Screen NEGATIVE Urine Methadone Screen NEGATIVE Urine Fentanyl Screen PRESUMPTIVE POSITIVE Ur Barbiturates Screen NEGATIVE Ur Phencyclidine Scrn NEGATIVE Ur Amphetamines Screen PRESUMPTIVE POSITIVE U Benzodiazepines Scrn NEGATIVE Urine Cocaine Screen NEGATIVE U Cannabinoids Screen NEGATIVE Ethyl Alcohol < 10.1 Discharge Plan Triage Chief Complaint: Substance Abuse ED Provider: Jaden Yepez Dx/Rx/DC Orders Prescriptions: No Action Mirena 21 mcg/24 hours (8 yrs) 52 mg intrauterine device 1 device intrauterine ONCE Rx Instructions: as a single dose fexofenadine [Carol Allergy] 180 mg tablet 180 mg PO DAILY PRN fluticasone propionate [Flonase Allergy Relief] 50 mcg/actuation spray,suspension 1 spray intranasal DAILY PRN Rx Instructions: administer into each nostril Drysol Dab-O-Matic 20 % solution 1 applic topical 2XW Qty: 60 1RF quetiapine 100 mg tablet 100 mg PO QHS Qty: 30 0RF Patient Comments: has not been taking recently mirtazapine [Remeron] 15 mg tablet 15 mg PO DAILY Qty: 90 0RF Patient Comments: has not been taking recently bupropion HCl 200 mg tablet sustained-release 12 hr 200 mg PO BID Qty: 60 1RF Patient Comments: has not been taking recently Primary Care Provider: Odin Abraham Referrals: Odin Abraham MD [Primary Care Provider] - Print Language: Burkinan What to do if you have Problems For any increased pain, shortness of breath, bleeding, nausea or vomiting, chestpain, or any unexpected problems, contact your Primary Care Provider. Call [facility] ([phone]) or report to the closest Emergency Room. Call 911 if necessary. 12/07/242308 <Electronically signed by Jaden Yepez DO> Cosigner Signature (if applicable): CC: Dr. Odin Abraham MD ~ Signed [facility] Work Phone: [phone] Instructions* Patient Instructions* Catie Flores APRN.CNP - 10/26/2024 7:31 PM EDT -Clean with soap and water -Tylenol or Ibuprofen for discomfort -Observe for worsening - redness, warmth, foul odor, drainage or increase in discomfort or fever - to ER if occurs documented in this encounterUniversity Hospitals St. [facility]06-09-2025 NoteHNO ID: [id number] Author: CATIE FLORES APRN.CNP Service: ? Author Type: Nurse Practitioner Type: Progress Notes Filed: 10/26/2024 19:31 Note Text: Subjective The history is provided by the patient. No supervisor modern languages was used. MARY LOU Colbert is a 34 year old female who [...] have confirmed and edited as necessary, the [facility] Review of Systems Constitutional: Negative [...] detail warranting prompt ER evaluation. Cat[facility] History of Present illness Narrative* Catie Flores APRN.LON - 10/26/2024 7:11 PM EDT Images from the original note were not included. Subjective The history is provided by the patient. No supervisor modern languages was used. HPI Christa Colbert is a 34 year old female who presents today for CC of left forearm swelling and redness. Patient admits to being an IV drug user and thinks she has an infection. She has redness andswelling in lower forearm, tender to touch. She [...] have confirmed and edited as necessary, the [facility] Review of Systems Constitutional: Negative [...] for higher level of care were discussed indetail warranting prompt ER evaluation. Catie Flores APRN.LON documented in this encounterUniversity Hospitals St. [facility]11-26-2024 NoteHNO ID: [id number] Author: TUCKER DEVLIN APRN.LON Service: ? Author Type: Nurse Practitioner Type: Progress Notes Filed: 04/14/2024 17:21 Note Text: Subjective HPI HPI Christa Colbert is a 34 year old female who [...] PROPIONATE 50 MCG/ACTUATION NASAL SPRAY,SUSPENSION Tucker Devlin APRN.[place] [address]-26-2024 History of Present illness Narrative* Tucker DevlinRUBEN.LON - 04/14/2024 5:05 PM EST Subjective HPI HPI Christa Colbert is a 34 year old female who [...] resp. rate 18, weight 83.8 kg (184 lb11.9 oz), last menstrual period 12/23/2022, SpO2 100%. [...] PROPIONATE 50 MCG/ACTUATION NASAL SPRAY,SUSPENSION Tucker Devlin APRN.LON documented in this encounterUniversity Hospitals St. [facility]05-20-2024 History of Present illness Narrative* Tucker Devlin APRN.LON - 10/07/2023 4:40 PM EDT Subjective HPI HPI Christa Colbert is a 33 year old female who [...] C (99 F), temperature source Tympanic, resp. rate18, weight 81.7 kg (180 lb 1.9 oz), [...] TABLET Tucker Devlin APRN.CNP documented in this encounterUniversity Hospitals St. John [facility]03-20-2024 Instructions* Patient Instructions* Leticia-Vicki Goode APRN.CNP - 08/07/2023 5:49 PM EDT ASSESSMENT/PLAN: [...] Discussed expected course of illness Vicki Michael APRN.FISHER MUSSEL SORE THROAT INSTRUCTIONS SORE THROAT OVERVIEW - [...] the most common cause of sore throat, bacteriaare another common cause. Bacteria and viruses are spread from one person to another through hand contact. Hands get contaminated when the sick individual touches their nose or mouth and then touchesanother person directly (dkse-ti-tang contact) or indirectly (cxcf-ti-sgbior, such as doorknob, telephone, toys). It is difficult to determine the cause of sore throat based upon symptoms alone; an examination andlaboratory test are recommended in most cases Viruses - There are many viruses that can cause pain and swelling of the throat. The most common include viruses that cause sore throat as part of an upper respiratory infection, such as the common cold. Other viruses that cause sore throat include influenza, adenovirus, and Rickey-Blount virus (thecause of mononucleosis). Symptoms - Symptoms that may [...] in the back or sides of the throat,small red spots on the roof of the [...] than 1 year may be fussy and havea decreased appetite and low-grade fever. SORE THROAT [...] is important for the child to finish theentire course of treatment (usually 10 days). If [...] reduce the risk of dehydration, parents can offerwarm or cold liquids. (See 'Other interventions' below.) Signs and symptoms of mild dehydration include a slightly dry mouth, increased thirst, and decreased urine output (one wet diaper or void in six hours). Signs of moderate or severe dehydration include decreased urine output (less than one wet diaper or void in six hours), lack of tears when crying,dry mouth, and sunken eyes. A child who is moderately or severely dehydrated should be evaluated by a healthcare provider as soon as possible to determine if treatment is needed. Oral rinses- Salt-water gargles are an old stand-by for relief of throat pain. It is not clear if this treatmentis effective, but it is unlikely to be [...] hard candy. We do not recommend throat lozengesfor children, especially children younger than 3 to [...] fingernails, between the fingers, and the wrists. Handsshould be rinsed thoroughly, and dried with a [...] secretions and has the advantage of not co ntaminating the hands. WHEN TO SEEK HELP - Parents of a child with throat pain and one or more of the following should contact their healthcare provider immediately: Difficulty swallowing or breathing Excessive drooling in an or young child Temperature ?101 F or [...] every four months on our web site (www.[employer].Inline.me/patients). Information below was obtained from Up to date Last literature review version 19.2: September 2010 This topic last updated: January 04, 2010 documented in this encounterUniversity Hospitals St. John [facility] Center03-20-2024 History of Present illness Narrative* Vicki Michael APRN.FISHER MUSSEL - 08/07/2023 5:35 PM EDT Subjective Sore Throat Pertinent negatives include no congestion, coughing, ear pain or vomiting. Christa Colbert is a 33 year old female who [...] Discussed expected course of illness Vicki Michael APRN.FISHER MUSSEL documented in this encounterUniversity Hospitals St. John [facility] Center12-17-2023 History of Present illness Narrative* Antonette Levy PA - 05/05/2023 3:31 PM EST This note was created using [employer]. Subjective Christa Colbert is a 33 year old female. HPI [...] 15 mos Anxiety and depression Drug dependency ([facility]) has been clean for 15 mos PAST [...] ER evaluation. JUJU Jaeger documented in this encounterUniversity Hospitals St. John [facility] Center11-08-2023 Miscellaneous Notes* Telephone Encounter - Laura Floyd LPN - 03/27/2023 8:32 AM EST Patient notified.Laura Floyd LPN * Telephone Encounter - Delmis Sparks PA-C - 03/27/2023 8:28 AM EST Please let patient know that their COVID-19, influenza, and RSV testing is negative. documented in this encounterUniversity Hospitals St. John [facility] Center11-07-2023 Instructions* Patient Instructions* Barrie Martinez APRN.FISHER MUSSEL - 03/26/2023 6:00 PM EST How to Manage Common Symptoms Associated with COVID for Adults Fever- Fever is a temperature over 100.4 F and can occur when the body is fighting an infection. Tohelp treat a fever: Drink plenty of fluids [...] your chest such as Vicks, which can helpreduce cough. Try cough drops. Avoid smoking and other strong odors or perfumes. Try breathing exercises to keep your lungs open and clear. Take a big deep breath through your noseand hold for 5 seconds before slowly releasing. [...] of water every 10-15 minutes and increase astolerated. You can try sucking an ice cube [...] or concerning to you. documented in this encounterUniversity Hospitals St. John [facility] Center11-07-2023 History of Present illness Narrative* Barrie Martinez APRN.CNP - 03/26/2023 5:56 PM EST Subjective HPI Nontoxic-appearing female presents urgent care [...] of care. This note was generated using [employer] software. It may contain errors in wording, punctuation, or spelling. Barrie Martinez APRN.FISHER MUSSEL documented in this encounterUniversity Hospitals St. John [facility] Center08-22-2023 History of Present illness Narrative* Chrissie De Jesus MD - 01/08/2023 10:36 AM EDT N/a * Chrissie De Jesus MD - 01/08/2023 10:17 AM EDT Dredge Deckhand offered: Patient declines. Christa presents today for IUD insertion for contraception. Patient's last menstrual period was 12/23/2022. GC/chlamydia: Collected today test: negative Side effects including irregular bleeding were discussed with the patient. The patient understands that it should be removed in 8 years or sooner if the patient desires a . IUD source: office provided IUD lot #: [id number] Exp date: 03/2025 UNIVERSAL PROTOCOL / SAFETY [...] patient was told to check the string monthlyfor accurate placement. Bleeding expectations were reviewed. Follow up for next annual exam or sooner as needed. Chrissie De Jesus MD documented in this encounterUniversity Hospitals St. John [facility] Center08-22-2023 Instructions* Patient Instructions* Jackie Mahmood MA - 01/08/2023 10:19 AM [...] please contact the office. documented in this encounterUniversity Hospitals St. 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 History LMP: 12/23/2022, Having periods Age at Menarche: Age at First : Age at Menopause: Collection Card Clerk History Comments: Sexual Activity: Yes; Male Contraception: [...] Level: 3 - Low [facility]* Diagnosis Encounter for gynecological examination without abnormal finding Routine gynecological examination Screen for STD (sexually transmitted disease) Screening examination for venereal disease High risk heterosexual behavior Problems related to high-risk sexual behavior [facility] Diagnosis Onset Date Resolution Status Intravenous drug abuse in remission acute Smoker acute [facility] current use of antipsychotic medication noneactive Establishing care with new doctor, encounter for noneactive Screening for cervical cancer noneactive Anxiety and depression nonea ctive Excessive sweating noneactiv e Deviated septum noneactive [facility] Work Phone: Evaluation note* Diagnosis Encounter for surveillance of contraceptive pills- Primary Surveillance of previously prescribed contraceptive pill Encounter for IUD insertion Encounter for insertion of intrauterine contraceptive device [facility]* Diagnosis Encounter for IUD insertion- Primary Encounter for insertion of intrauterine contraceptive device Screen for STD (sexually transmitted disease) Screening examination for venereal disease documented [facility]* Diagnosis Viral illness- Primary Unspecified viral infection, in conditions classified elsewhere and of unspecified site [facility]* Diagnosis URI, acute- Primary Acute upper respiratory infections of unspecified site Bacterial sinusitis Unspecified sinusitis (chronic) documented [facility] this [facility]* Diagnosis Sore throat- Primary Acute pharyngitis documented in this encounter [facility]* Diagnosis Sore throat- Primary Acute pharyngitis [facility] Diagnosis Sore throat- Primary Acute pharyngitis documented in this encounter [facility]* Diagnosis Redness of skin- Primary Unspecified erythematous condition [facility] Yrn Yepez [facility] Note Date/Time December 07, 2024 11:2 3pm [facility] Medical Records Department [address] [place] [address] History & Physical Exam 12/07/24 2317 MR#: [id number] Acct: [id number] Name: CHRISTA COLBERT Rep #:[id number] : 1990 34 From: Yrn Yepez MD PCP: Dr. Odin Abraham MD Status:ADM IN Location: [facility] [place]2 HPI - General General Date of Admission: 12/07/24 Date of Service: 12/07/24 Chief Complaint: Opiate withdrawal and methamphetamine abuse HPI Narrative CHRISTA COLBERT, is a 34 F who presents to the emergency room with chief complaint of requesting withdrawal support from opiates and methamphetamine. Patient has a long-term drug addiction history but states after 22 she had been sober for nearly 3 years but had lost her sober housing situation and relapsed. Patient admits to some nausea and vomiting and irritability. Patient states shelast used meth and fentanyl earlier today around noon. She is requesting support for withdrawal and detoxification. Patient denies any other chronic medical history and denies chest pain or shortness of breath or fevers or chillsat present time [facility] Medical History HPV in female Back problem Substance abuse Smoker Irregular heart beat PTSD (post-traumatic stress disorder) Depression Anxiety Asthma Home Medications ?Medication ?Instructions ?Recorded ?Last Taken ?Type levonorgestrel (Mirena) 1 device intrauterine ONCE 1 Unknown History fexofenadine 180 mg tablet 180 mg PO DAILY PRN 4 Unknown History (Carol Allergy) fluticasone propionate 50 1 spray intranasal DAILY PRN 09/05/23 Unknown History mcg/actuation nasal spray,suspension (Flonase Allergy Relief) aluminum chloride 20 % topical 1 applic topical 2XW #6 0 mL 03/17/24 Unknown Rx solution (Drysol Dab-O-Matic) quetiapine 100 mg tablet 100 mg PO QHS #30 tabs 05/18 Unknown Rx mirtazapine 15 mg tablet (Remeron) 15 mg PO DAILY #90 tabs 05/26/24 Unknown Rx bupropion HCl 200 mg tablet,12 hr 200 mg PO BID #60 ea 06/02/24 Unknown Rx sustained-release Allergy/AdvReac Type Severity Reaction Status Date / Time No Known Allergies Allergy Verified 12/07/24 19:29 Family History Father Myocardial infarction 70s Hypertension Surgical History History of removal of cyst [place] teeth extracted Social History household members: other details: sober living current occupational status: employed current occupation: [employer] ([employer]) Smoking Status: Current every day smoker tobacco type: e-cigarettes Electronic Cigarette Use: not used alcohol intake: former details: 2021 substance use type: former substance user Date of last use: 06/28/2021, heroin and opiates do you feel safe at home: Yes ROS Constitutional Constitutional: Denies chills or fever(s) Eyes Eyes: Denies blurry vision ENT HEENT: Denies abnormal hearing Cardiovascular Cardiovascular: Denies chest pain Respiratory/Chest Respiratory/Chest: Denies shortness of breath at rest Gastrointestinal Gastrointestinal: Reports nausea and vomiting; Denies abdominal pain Genitourinary Genitourinary: Denies dysuria Musculoskeletal Musculoskeletal: Denies back pain Integumentary Integumentary: Reports dry skin Neurologic Neurologic: Denies abnormal speech Psychiatric Psychiatric: Reports anxiety Vital Signs Vital Signs Vital Signs: 12/07/24 19:27 12/07/24 21:27 12/07/24 22:00 Temperature 98.3 F 97.9 F Temperature Source Oral Pulse Rate 106 H 88 Respiratory Rate 16 20 H 18 Blood Pressure 151/104 H 112/60 122/77 H Blood Pressure Mean 119 77 92 Pulse Ox 100 100 100 Oxygen Delivery Method Room Air Room Air 12/07/24 23:00 Temperature Temperature Source Pulse Rate Respiratory Rate 20 H Blood Pressure Blood Pressure Mean Pulse Ox 100 Oxygen Delivery Method Weight Weight: 149 lb 4.8 oz Body Mass Index (BMI) 21.4 Physical Exam Const oriented x3 General Appearance: cooperative and well developed HEENT normocephalic and head/scalp atraumatic Eyes PERRL Neck no lymphadenopathy Lymph Lymphatic: no lymphadenopathy noted Resp normal respiratory effort, normal air movement and clear to auscultation bilaterally Cardio regular rate, regular rhythm, S1 normal heart sound and S2 normal heart sound GI normal to inspection, nondistended, normoactive bowel sounds Extremity normal capillary refill Skin General Skin Exam: no breakdown Neuro no focal motor deficits and no sensory deficits noted Psych Mood & Affect: anxious Results Lab / Micro Data 12/07/24 19:50 12/07/24 19:50 Labs: Laboratory Results - last 24 hr 12/07/24 19:50: WBC 4.5, RBC 3.99 L, Hgb 12.0, Hct 34.9 L, MCV 87.5, MCH 30.1, MCHC 34.4, RDW Std Deviation 41.5, RDW Coeff of Jose 13.1, Plt Count 216, MPV 9.4, Immature Gran % (Auto) 0.200, Neut % (Auto) 54.5, Lymph % (Auto) 38.0, Luna% (Auto) 6.9, Eos % (Auto) 0.0, Baso % (Auto) 0.4, Absolute Neuts (auto) 2.4, Absolute Lymphs (auto) 1.70, Nucleated RBC % 0, Differential Comment SCANNED, Platelet Estimate ADEQUATE, Sodium 139, Potassium 3.9, Chloride 104, Carbon Dioxide 23.1, Anion Gap 12, BUN 12, Creatinine 0.72, Estim Creat Clear Calc 117.70, Est GFR (MDRD) Non-Af 112, BUN/Creatinine Ratio 17.0, Glucose 112 H, Calcium 9.1, Serum , Qual NEGATIVE, Ethyl Alcohol < 10.1 12/07/24 21:30: Urine Opiates Screen NEGATIVE, U Buprenorphine Qual NEGATIVE, UrOxycodone Screen NEGATIVE, Urine Methadone Screen NEGATIVE, Urine Fentanyl Screen PRESUMPTIVE POSITIVE, Ur Barbiturates Screen NEGATIVE, Ur Phencyclidine Scrn NEGATIVE, Ur Amphetamines Screen PRESUMPTIVE POSITIVE, U Benzodiazepines Scrn NEGATIVE, Urine Cocaine Screen NEGATIVE, U Cannabinoids Screen NEGATIVE Assessment & Plan Assessment/Plan (1) Depression: (2) Anxiety: (3) Methamphetamine abuse: (4) Opiate abuse, continuous: PLAN: Plan 1 withdrawal and detoxification from opiates and methamphetamine?admit patient to general medical floor Place patient on opiate withdrawal protocol and consultcase management for discharge planning and long-term treatment options 2. History of depression and anxiety?not currently taking any medications stable at present time will recommend reevaluation at discharge with provider who can manage long-term care 3. DVT prophylaxis test patient is ambulatory and low risk for DVT at present time Charges/Coding Visit Charges Inpatient E&M: 60246 Init Hosp L2 12/07/24 2323 <Electronically signed by Yrn Yepez MD> Cosigner Signature (if applicable): CC: Dr. Odin Abraham MD; Dr. Yrn Yepez MD~ Signed [facility] Work Phone: [facility] Outpatient Procedure (Routine) - Pending Review Specialty Diagnoses / Procedures Referred By Contac t Referred To Contact [facility] Diagnoses Encounter for IUD insertion Procedures INSERT INTRAUTERINE DEVICE LEVONORGESTREL IU 52MG 5 YR INSERT INTRAUTERINE DEVICE Terri Ferro APRN.CNP [address] [place] [address] [facility] [place] [address] Referral ID Status Reason Start Date Expiration Date Visits Requested Visits Authorized [id number] Pending Review Auto-Generat ed Referral 12/31/2022 12/31/2023 1 1 [facility] for referral (narrative)* Outpatient Procedure (Routine) - Pending Review Specialty Diagnoses / Procedures Referred By Contac t Referred To Contact [facility] Diagnoses Encounter for IUD insertion Procedures INSERT INTRAUTERINE DEVICE LEVONORGESTREL IU 52MG 5 YR INSERT INTRAUTERINE DEVICE Chrissie De Jesus MD [address] [place] [address] [facility] [address] [place] [address] Referral ID Status Reason Start Date Expiration Date Visits Requested Visits Authorized [id number] Pending Review Auto-Generat ed Referral 01/08/2023 01/08/2024 1 1 [facility] for referral (narrative)No reason for referral information availableWAdena [facility] Work Phone: Advance Directives No Advanced Directives Records FoundDocuments on File Type Date Recorded 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 No December 07, 2024 7:40pm Advance Directive Response Recorded Date/ Time Do you have a Healthcare Power of Body And Frame Man? 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 CARE, PT NE EDS NPP Reason for Visit Intravenous drug abu se in remission Smoker [facility] current use of antipsychotic medication Establishing care with new doctor, encounter for Screening for cervical cancer Anxiety and depression Excessive sweating Deviated septum Chief Complaint Admit Date OPIATE WITHDRAWAL, METHAMPHETAMINE ABUSE December 07, 2024 9:23pm POLYSUBSTANCE ABUSE DETOX December 07 11:21pm Reason for Visit Admit Date Anxiety December 07, 2024 9:23 pm Depression December 07, 2024 9:23 pm Methamphetamine abuse December 07, 2024 9: 23pm Opiate abuse, continuous December 07, 2024 9:23pm Chief Complaint Admit Date POLYSUBSTANCE ABUSE DETOX December 07 11:21pm OPIATE WITHDRAWAL, METHAMPHETAMINE ABUSE December 07, 2024 11:23pm OPIATE WITHDRAWAL, METHAMPHETAMINE ABUSE December 08, 2024 1:09pm OPIATE WITHDRAWAL, METHAMPHETAMINE ABUSE December 09, 2024 9:00am OPIATE WITHDRAWAL, METHAMPHETAMINE ABUSE December 10, 2024 8:36am OPIATE WITHDRAWAL, METHAMPHETAMINE ABUSE December 11, 2024 9:57am Reason for Visit Admit Date Anxiety December 07, 2024 11:2 3pm Depression December 07, 2024 11:2 3pm Methamphetamine abuse December 07, 2024 11 :23pm Opiate abuse, continuous December 07, 2024 11:23pm Reason for Visit Admit Date Methamphetamine abuse December 07, 2024 11 :23pm Opiate abuse, continuous December 07, 2024 11:23pm Anxiety December 07, 2024 11:2 3pm Depression December 07, 2024 11:2 3pm Medications Administered Section Inactive Administered Medications - [...] section and content) DATE CREATED AUTHOR 12/10/2019 [facility] ([place]) DATE CREATED AUTHOR AUTHOR'S ORGANIZ ATION 03/10/2020 [facility] DATE CREATED AUTHOR AUTHOR'S ORGANIZ ATION 04/19/2024 [facility] DATE CREATED AUTHOR AUTHOR'S ORGANIZ ATION 10/27/2024 [facility] DATE CREATED AUTHOR AUTHOR'S ORGANIZ ATION 01/06/2025 [facility] Care Teams (unrecognized sec tion and content) Geriatric Assistant Relationship Specialty Start Date End Date Roxie Byrne PA-C [address] [place] [address] PCP - General Family Medicine 11/25/19 Team Status: Active Member Role Status Dates Dr. Odin Abraham MD Primary Care Provider Active Team Status: Inactive Member Role Status Dates Dr. Odin Abraham MD Primary Care Pro vider, Attending Provider, Referring Provider Active Geriatric Assistant Relationship Specialty Start Date End Date Odin Abraham MD [address] [place] [address] PCP - General Internal Medicine 04/14/24 Geriatric Assistant Relationship Specialty Start Date End Date Odin Abraham MD [address] [place] [address] PCP - General Internal Medicine 04/14/24 Team Status: Active Member Role/Relationship Status Dates Dr. Odin Abraham MD Primary Care Provider Active Team Status: Active Member Role/Relationship Status Dates Dr. Odin Abraham MD Primary Care Provider Active Start: December 07, 2024 Dr. Jaden Yepez , DO Emergency Provider Activ e Start: December 07, 2024 Dr. Yrn Yepez MD Admit Provider Active Star t: December 07, 2024 Dr. Yrn Yepez MD Attending Provider Active Start: December 07, 2024 Team Status: Active Member Role/Relationship Status Dates Dr. Odin Abraham MD Primary Care Provider Active Start: December 07, 2024 Dr. Jaden eYpez DO Emergency Provider Activ e Start: December 07, 2024 Dr. Yrn Yepez MD Admit Provider Active Star t: December 07, 2024 Dr. Yrn Yepez MD Attending Provider Active Start: December 07, 2024 Dr. Yrn Yepez MD Other Provider Active Star t: December 07, 2024 Team Status: Active Member Role/Relationship Status Dates Dr. Odin Abraham MD Primary Care Provider Active Start: December 07, 2024 Dr. Jaden Yepez DO Emergency Provider Activ e Start: December 07, 2024 Dr. Yrn Yepez MD Admit Provider Active Star t: December 07, 2024 Dr. Yrn Yepez MD Attending Provider Active Start: December 07, 2024 Dr. Yrn Yepez MD Other Provider Active Star t: December 07, 2024 Team Status: Inactive Member Role/Relationship Status Dates Dr. Odin Abraham MD Primary Care Provider Active Start: December 07, 2024 End: December 11, 2024 Dr. Jaden Yepez DO Emergency Provider Activ e Start: December 07, 2024 End: December 11, 2024 Dr. Yrn Yepez MD Admit Provider Active Star t: December 07, 2024 End: December 11, 2024 Dr. Yrn Yepez MD Other Provider Active Star t: December 07, 2024 End: December 11, 2024 Dr. Ezio Mclean MD Attending Provider Active Start: December 07, 2024 End: December 11, 2024 Team Status: Active Member Role/Relationship Status Dates Dr. Odin Abraham MD Primary Care Provider Active Start: December 08, 2024 Dr. Jaden Yepez , DO Emergency Provider Activ e Start: December 08, 2024 Dr. Yrn Yepez MD Admit Provider Active Star t: December 08, 2024 Dr. Yrn Yepez MD Other Provider Active Star t: December 08, 2024 Dr. Ezio Mclean MD Attending Provider Active Start: December 08, 2024 Dr. Ezio Mclean MD Other Provider Active Start: December 08, 2024 Team Status: Active Member Role/Relationship Status Dates Dr. Odin Abraham MD Primary Care Provider Active Start: December 09, 2024 Dr. Jaden Yepez DO Emergency Provider Activ e Start: December 09, 2024 Dr. Yrn Yepez MD Admit Provider Active Star t: December 09, 2024 Dr. Yrn Yepez MD Other Provider Active Star t: December 09, 2024 Dr. Ezio Mclean MD Attending Provider Active Start: December 09, 2024 Dr. Ezio Mclean MD Other Provider Active Start: December 09, 2024 Team Status: Active Member Role/Relationship Status Dates Dr. Odin Abraham MD Primary Care Provider Active Start: December 10, 2024 Dr. Jaden Yepez DO Emergency Provider Activ e Start: December 10, 2024 Dr. Yrn Yepez MD Admit Provider Active Star t: December 10, 2024 Dr. Yrn eYpez MD Other Provider Active Star t: December 10, 2024 Dr. Ezio Mclean MD Attending Provider Active Start: December 10, 2024 Dr. Ezio Mclean MD Other Provider Active Start: December 10, 2024 Team Status: Active Member Role/Relationship Status Dates Dr. Odin Abraham MD Primary Care Provider Active Start: December 11, 2024 Dr. Jaden Yepez DO Emergency Provider Activ e Start: December 11, 2024 Dr. Yrn Yepez MD Admit Provider Active Star t: December 11, 2024 Dr. Yrn Yepez MD Other Provider Active Star t: December 11, 2024 Dr. Ezio Mclean MD Attending Provider Active Start: December 11, 2024 Dr. Ezio Mclean MD Other Provider Active Start: December 11, 2024 Team Status: Inactive Member Role/Relationship Status Dates Dr. Odin Abraham MD Primary Care Provider Active Start: December 31, 2024 End: December 31, 2024 [place] Santiago Attending Provider Active Start: December 31, 2024 End: December 31, 2024 Goals (unrecognized section and content) Goals may be documented in a n alternate sectionGoals may be documented in an alternate section Source Comments (unrecognize d section and content) In the event this informatio n is protected by the Federal Confidentiality of Alcohol and Drug Abuse Patient Records regulations: The Federal rules restrict any use of the information to criminally investigate or prosecute any alcohol or drug abuse patient.[facility] the event this information is protected by the Federal Confidentiality of Alcohol and Drug Abuse Patient Records regulations: The Federal rules restrict any use of the information to criminally investigate or prosecute any alcohol or drug abuse patient.[facility] Center[facility] the event this information is protected by the Federal Confidentiality of Alcohol and Drug Abuse Patient Records regulations: The Federal rules restrict any use of the information to criminally investigate or prosecute any alcohol or drug abuse patient.[facility] Center[facility] the event this information is protected by the Federal Confidentiality of Alcohol and Drug Abuse Patient Records regulations: The Federal rules restrict any use of the information to criminally investigate or prosecute any alcohol or drug abuse patient.[facility] Center[facility] the event this information is protected by the Federal Confidentiality of Alcohol and Drug Abuse Patient Records regulations: The Federal rules restrict any use of the information to criminally investigate or prosecute any alcohol or drug abuse patient.[facility] Center[facility] the event this information is protected by the Federal Confidentiality of Alcohol and Drug Abuse Patient Records regulations: The Federal rules restrict any use of the information to criminally investigate or prosecute any alcohol or drug abuse patient.[facility] CenterIn the event this information is protected by the Federal Confidentiality of Alcohol and Drug Abuse Patient Records regulations: The Federal rules restrict any use of the information to criminally investigate or prosecute any alcohol or drug abuse patient.[facility] CenterIn the event this information is protected by the Federal Confidentiality of Alcohol and Drug Abuse Patient Records regulations: The Federal rules restrict any use of the information to criminally investigate or prosecute any alcohol or drug abuse patient.[facility] CenterIn the event this information is protected by the Federal Confidentiality of Alcohol and Drug Abuse Patient Records regulations: The Federal rules restrict any use of the information to criminally investigate or prosecute any alcohol or drug abuse patient.[facility] Reason for Visit (unrecogniz ed [...] INSERT INTRAUTERINE DEVICE REMOVE INTRAUTERINE DEVICE Terri Ferro, PUBLIC TRANSIT SPECIALIST.[employer]ISHER [employer]SEL [address] [place] [address] [facility] [address] [address] Referral ID Status Reason Start Date Expiration Date Visits Requested Visits Authorized [id number] Authorized Auto-Generat ed Referral 01/01/2023 05/19/2023 2 [...] BE BASED ON THE PRIMARY CLINICAL RECORDS. [employer] [facility]. provides no warranty or guarantee of the accuracy or completeness of information in this document.
--- NOTE | 2025-02-04 19:31 | EX.ED.SAOD ---
HPI History of Present Illness Chief Complaint: Mental Health Detail of Chief Complaint: Depression, suicidal thoughts, drug addiction Informant: patient Onset/Context/Timing Onset: Weeks and Month(s) Context: Gradual Onset (With respect to the depression) and Sudden Onset (Started using fentanyl and methamphetamine 1 month ago) Timing: Continuous (Daily use. Approximately 1 g of fentanyl) Quality: Snorts did inject in the past Location: Not applicable Current Severity: Moderate Maximum Severity: Moderate Worsened by: Not applicable Relieved by: Nothing Associated Symptoms Associated Symptoms: Positive for no (Patient has an IUD in place. Uncertain when her last menses occurred); Negative for vomiting*, diarrhea*, fever*, rash*, seizure, tremor, palpatations, change in mental status, trauma, sex for drugs*, suicidal ideation or homicidal ideation Narrative Narrative: Patient is a 34-year-old woman. She has history of polysubstance use. Her main drugs of use are fentanyl 1 g daily as well as methamphetamine. She also has used benzodiazepines. She is a smoker. She was at our program this past November. She started using approximately a month ago. She denies history of HIV or hepatitis C. She is no longer using IV drugs. She has no signs or symptoms of . She has an IUD in place. She is not certain when her last menses was. She denies fever, chills night sweats. She denies weight gain or weight loss. She denies headache, visual, ocular auditory symptoms. She denies cardiac respiratory symptoms. She presently denies GI symptoms and specifically no nausea, vomiting or diarrhea. She denies dysuria, frequency, urgency or hematuria. Prior similar symptoms: Yes Recent Illness/Hospitalization: Yes [facility] Medical History (Updated 02/04/25 @ 21:[address] Denise Russo MD) HPV in female Back problem Substance abuse Smoker Irregular heart beat PTSD (post-traumatic stress disorder) Depression Anxiety Asthma Home Medications ?Medication ?Instructions ?Recorded ?Last Taken ?Type levonorgestrel (Mirena) 1 device intrauterine ONCE 02/26/23 Unknown History aluminum chloride 20 % topical 1 applic topical 2XW #60 mL 03/17/24 Unknown Rx solution (Drysol Dab-O-Matic) quetiapine 100 mg tablet 100 mg PO QHS #30 tabs 05/18/24 Unknown Rx mirtazapine 15 mg tablet (Remeron) 15 mg PO DAILY #90 tabs 05/26/24 Unknown Rx buprenorphine 8 mg-naloxone 2 mg 1 film sublingual BID 02/04/25 Unknown History sublingual film bupropion HCl 200 mg tablet,12 hr 150 mg PO DAILY 02/04/25 Unknown History sustained-release Allergy/AdvReac Type Severity Reaction Status Date / Time No Known Allergies Allergy Verified 02/04/25 18:42 Family History Father Myocardial infarction 70s Hypertension Surgical History History of removal of cyst [place] teeth extracted Social History household members: other details: sober living current occupational status: employed current occupation: [employer] Smoking Status: Current every day smoker tobacco type: e-cigarettes Electronic Cigarette Use: not used alcohol intake: former details: 2021 substance use type: former substance user Date of last use: 06/28/2021, heroin and opiates do you feel safe at home: Yes ROS ROS ED Constitutional Constitutional ED: Denies chills, fever(s), subjective, sweats or weight loss Eyes Eyes: Denies blurry vision or change in vision ENT ENT ED: Denies ear pain, rhinorrhea or sore throat Cardiovascular Cardiovascular: Denies chest pain, orthopnea, palpitations, paroxysmal nocturnal dyspnea or racing heartbeat Respiratory/Chest Respiratory/Chest: Denies cough, dyspnea, dyspnea on exertion, orthopnea or paroxysmal nocturnal dyspnea Gastrointestinal Gastrointestinal: Denies abdominal pain, nausea or vomiting Genitourinary Genitourinary ED: Denies dysuria or urinary frequency Musculoskeletal Musculoskeletal: Denies arthralgias or myalgias Integumentary Denies rash Neurologic Neurologic: Denies headache(s), paresthesias or weakness Psychiatric Psychiatric: Denies anxiety or depression Endocrine Endocrinology: Denies cold intolerance or heat intolerance Hematologic/Lymphatic Hematologic/Lymphatic: Denies easy bleeding or easy bruising EXAM Physical Exam Const Vital Signs: 02/04/25 18:38 02/04/25 21:42 Temperature 98.1 F 97.9 F Temperature Source Oral Pulse Rate 104 H 100 Respiratory Rate 19 H 15 Blood Pressure 142/90 H 137/80 H Blood Pressure Mean 107 99 Pulse Ox 100 100 Oxygen Delivery Method Room Air Positive well nourished and well developed General Appearance ED: well developed and NAD; Negative for pallor HEENT Reports moist mucous membranes HEENT Narrative: Head is atraumatic normocephalic. Ears normal. atraumatic Eyes PERRL and EOMs intact bilaterally General Eye ED: Negative for pale conjunctiva or scleral icterus Neck no lymphadenopathy, supple and no JVD Lymph Lymphatic: no lymphadenopathy noted and lymphadenopathy Chest Wall inspection of chest normal and palpation of chest normal Resp normal respiratory effort and clear to auscultation bilaterally Cardio regular rhythm, S1 normal heart sound, S2 normal heart sound and no murmurs Rate: tachycardic GI soft to palpation, non-tender, non-distended and no masses Extremity Extremity Narrative: Prior track maddox noted. No evidence of infection Neuro oriented x3, CN's II-XII intact bilaterally and no sensory deficits noted Sensorium / Orientation: alert Psych mental status grossly normal and thought process normal Skin General Skin Exam: Negative for jaundice or pallor MDM MDM MDM Narrative Medical decision making narrative: Patient presents for detox from methamphetamine and fentanyl. She also uses benzodiazepine. She is a smoker. She understands that she cannot smoke here. Will obtain test. ED addiction order set was initiated. Prior records were reviewed. She was admitted in November. History & Record Review Additional record(s) reviewed:: Prior inpatient record (Detox) Lab Data Attestation: I reviewed the patient's lab results. Lab results narrative: CBC is unremarkable. Comprehensive metabolic panel is unremarkable. test is negative talk screen is positive for cocaine, amphetamines, fentanyl and Buprenorphine. Labs: Laboratory Results - last 24 hr 02/04/25 02/04/25 19:17 20:25 WBC 6.0 RBC 4.17 L Hgb 12.7 Hct 37.5 MCV 89.9 MCH 30.5 MCHC 33.9 RDW Std Deviation 43.8 RDW Coeff of Jose 13.2 Plt Count 264 MPV 9.5 Immature Gran % (Auto) 0.500 Neut % (Auto) 62.3 Lymph % (Auto) 26.1 [place] % (Auto) 8.5 Eos % (Auto) 2.3 Baso % (Auto) 0.3 Absolute Neuts (auto) 3.7 Absolute Lymphs (auto) 1.56 Nucleated RBC % 0 Sodium 140 Potassium 3.3 Chloride 104 Carbon Dioxide 25.9 Anion Gap 11 BUN 7 Creatinine 0.72 Estim Creat Clear Calc 113.52 Est GFR (MDRD) Non-Af 113 BUN/Creatinine Ratio 9.1 L Glucose 103 H Calcium 8.9 Total Bilirubin 0.60 AST 21 ALT 19 Alkaline Phosphatase 50 Total Protein 6.9 Albumin 4.2 Globulin 2.8 Albumin/Globulin Ratio 1.5 Serum , Qual NEGATIVE Urine Opiates Screen NEGATIVE U Buprenorphine Qual PRESUMPTIVE POSITIVE Ur Oxycodone Screen NEGATIVE Urine Methadone Screen NEGATIVE Urine Fentanyl Screen PRESUMPTIVE POSITIVE Ur Barbiturates Screen NEGATIVE Ur Phencyclidine Scrn NEGATIVE Ur Amphetamines Screen PRESUMPTIVE POSITIVE U Benzodiazepines Scrn NEGATIVE Urine Cocaine Screen PRESUMPTIVE POSITIVE U Cannabinoids Screen NEGATIVE Ethyl Alcohol < 10.1 Management Discussion w/another healthcare provider: Hospitalist (Spoke with Dr. Russo for admission to [facility] for detox) Discharge Plan Dx/Rx/DC Orders Clinical Impression: Fentanyl use disorder, moderate, dependence, Methamphetamine use, Mild benzodiazepine use disorder, Tachycardia Disposition Disposition: Acute Care Hospital [facility]
[2025-02-04 19:58] LABS: Barbiturate Urine NEGATIVE (< 200 ng/mL); Benzodiazepine Urine NEGATIVE (< 200 ng/mL); PCP Urine NEGATIVE (< 25 ng/mL); THC Urine NEGATIVE (< 50 ng/mL)
[2025-02-04 20:40] LABS: Hematocrit 37.5 % (37-47); Hemoglobin 12.7 g/dL (12.0-15.0); Immature Granulocytes Count 0.030 X10^3/uL (0.0-0.0); Mean Corp Hgb Conc 33.9 g/dL (32-36); Mean Corpuscular Volume 89.9 fL (81-99); Mean Platelet Vol. 9.5 fl (6.2-12.0); NRBC Flagged by Analyzer 0 % (0-5); Platelet Count 264 K/mm3 (150-450); RBC Distribution Width CV 13.2 % (11.6-14.6); RBC Distribution Width SD 43.8 fl (35.1-43.9); Red Blood Count 4.17 M/mm3 (4.2-5.4); White Blood Count 6.0 K/mm3 (4.4-11.0)
[2025-02-04 21:06] LABS: AST(SGOT) 21 U/L (<=31); Alanine Aminotransfer ALT/SGPT 19 U/L (<=34); Albumin, Serum 4.2 g/dL (3.5-5.0); Alkaline Phosphatase 50 U/L (35-104); Anion Gap 11 (5-15); BUN 7 mg/dL (4-19); BUN/Creat Ratio 9.1 RATIO (10-20); Calcium,Total 8.9 mg/dL (7.6-11.0); Carbon Dioxide 25.9 mmol/L (21.0-32.0); Chloride 104 mmol/L (98-108); Estimated Creatinine Clearance 113.52 ml/min (50-250); Globulin 2.8 g/dL (2.2-4.2); Glucose 103 mg/dL (70-99); Potassium 3.3 mmol/L (3.3-5.1)
[2025-02-04 21:13] LABS: Internal QC Validated? YES +Cl - CLEAR BKGD; Pregnancy, Serum, hCG Quali. NEGATIVE Negative; Record Kit Lot#, Serum Preg. 964736
[2025-02-04 21:20] LABS: Alcohol, Blood (Medical)-Serum < 10.1 mg/dL (<=10.0)
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
[2025-02-04 21:42] VITALS: BP 137/80; PULSE 100; RESP 15; TEMP 36.6; O2SAT 100
--- OUTSIDE RECORDS SUMMARY | 2025-02-04 21:54 | XMS RPT_ITS | CCD ---
Author Organization [facility] Care Team Providers Care Family Welfare Social Work Professor Name Role Phone Pcp, None Primary Care Provider UnavailRoxie Hurley Primary Care Provider Roxie Byrne PA-C Primary Care Provider Dr. Odin Abraham Primary Care Provider Dr. Odin Abraham Attending Provider [phone] Dr. Odin Abraham Referring Provider Unavailable Primary Care Provider Unavailabl e Unavailable Primary Care Provider UnavailOdin Wilder MD Primary Care Provider [phone] ROXIE BYRNE Primary Care Unavailable NICOLE TRINIDAD Attending Unavailable ROXIE BYRNE Primary Care Unavailable NIR NAVARRO Attending Unavailable ODIN ABRAHAM Primary Care Unavailable CATIE FLORES Attending Unavailable Dr. Odin Abraham MD Primary Care Provider [phone] Dr. Jaden Yepez DO Emergency Provider Marleni CHAUHAN, Dr. Pool Admit Provider Dr. Yrn Yepez MD Attending Provider Dr. Yrn Yepez MD Other Provider [phone] Odin Abraham MD Primary Care Provider Dr. Jaden Yepez DO Emergency Provider Marleni CHAUHAN, Dr. Pool Admit Provider Dr. Yrn Yepez MD Attending Provider Caridad CHAUHAN, Dr. Ezio Farah Attending Provider Caridad CHAUHAN, Dr. Ezio Farah Other Provider Christiano [employer] Attending Provider Marleni, Yrn Admitting Unavailable Ezio Mclean Attending Unavailable Marleni, Yrn Consulting Unavailable Owenton, Odin Primary Care Unavailable Nicole Alvarado Attending Unavailable Leigh, Odin Primary Care Unavailable Ezio Mclean Attending Unavailable Marleni, Yrn Consulting Unavailable Marleni, Yrn Admitting Unavailable Leigh, Odin Primary Care Unavailable Ezio Mclean Consulting Unavailable Marleni, Yrn Admitting Unavailable Marleni, Yrn Consulting Unavailable Marleni, Yrn Attending Unavailable Leigh, Odin Primary Care Unavailable Leigh, Odin Primary Care Unavailable [place]wenton, Odin Attending Unavailable Leigh, Odin Referring Unavailable Medications Current Medications Medication Drug Class(es) Dates Sig (Normalized) Sig (Original) [id number] 200 actuat albuterol 0.09 mg/actuat metered dose [...] by mouth. Active take 1 tablet by [facility] twice daily buPROPion (WELLBUTRIN XL) 150 MG [...] daily. 16 g 1 09/12/2020 Active levonorgestrel 0.524767 mg/hr intrauterine system (12 sources) Progestin, Progestin-containing [...] Onset: 12-11-2024 Other aftercare (1 source) Other penitentiary (current) drug therapy; Translations: [Long-term (current) use [...] current use of antipsychotic medication; Translations: [Other penitentiary (current) drug therapy] Onset: 09-28-2022 09-28-2022 Episodic Other skin disorders (3 sources) Excessive sweating; Translations: [Generalized hyperhidrosis] Onset: 07-04-2017 07-04-2017 Episodic Results Test Name Value Interpretation Reference Range Facility PAP IG HPV APTIMA 16/18,45on 01-05-2025 ADEQ Comment Normal . [facility] Comment on above: Order Comment: Speci men Comment: [id number] Specimen Comment: Source.............Cervix Specimen Comment: LMP / Prev Treat...[id number] Specimen Comment: No. of containers..01 ThinPrep Vial Result Comment: Sati sfactory for evaluation. Endocervical and/or squamous metaplastic cells (endocervical component) are present. Performed By: #### L 7400.0280, L3410.9992 #### [facility] [address] [facility]. [place], [place], [address] COMM . Normal . [facility] Comment on above: Order Comment: Speci men Comment: [id number] Specimen Comment: Source.............Cervix Specimen Comment: LMP / Prev Treat...[id number] Specimen Comment: No. of containers..01 ThinPrep Vial Performed By: #### L 7400.0280, L3410.9992 #### [facility] [address] [facility]. [place], [place], [id number] COMMENT Comment Normal . [facility] Comment on above: Order Comment: Speci men Comment: [id number] Specimen Comment: Source.............Cervix Specimen Comment: LMP / Prev Treat...[id number] Specimen Comment: No. of containers..01 ThinPrep Vial Result Comment: This liquid based ThinPrep(R) pap test was screened with the use of an image guided system. Performed By: #### L 7400.0280, L3410.9992 #### [facility] [address] [place], [address] DIAG Comment Normal . [facility] Comment on above: Order Comment: Speci men Comment: [id number] Specimen Comment: Source.............Cervix Specimen Comment: LMP / Prev Treat...[id number] Specimen Comment: No. of containers..01 ThinPrep Vial Result Comment: NEGA TIVE FOR INTRAEPITHELIAL LESION OR MALIGNANCY. TRICHOMONAS VAGINALIS IS PRESENT. Performed By: #### L 7400.0280, L3410.9992 #### [facility] [address] [place], [place], [address] HPV APTIMA, HR Negative Normal Negative [facility] Comment on above: Order Comment: Speci men Comment: [id number] Specimen Comment: Source.............Cervix Specimen Comment: LMP / Prev Treat...[id number] Specimen Comment: No. of containers..01 ThinPrep Vial Result Comment: This nucleic acid amplification test detects fourteen high- risk HPV types (16,18,31,33,35,39,45,51,52,56,58,59,66,68) without differentiation. Performed By: #### L 7400.0280, L3410.9992 #### [facility] [address] [place], [place], [address] HPV Millicent Rfx Comment Normal . [facility] Comment on above: Order Comment: Speci men Comment: [id number] Specimen Comment: Source.............Cervix Specimen Comment: LMP / Prev Treat...[id number] Specimen Comment: No. of containers..01 ThinPrep Vial Result Comment: Crit eria not met, HPV Genotype not performed. Performed at: [address] [id number] Auto Claims Adjuster: Luz Marina Sherman MD, Phone: [phone] Performed at: =G - [facility] [address] [id number] Auto Claims Adjuster: Luz Marina Sherman MD, Phone: [phone] Performed By: #### L 7400.0280, L3410.9992 #### [facility] [address] [place], [place], [address] PAPSMR Comment Normal . [facility] Comment on above: Order Comment: Speci men Comment: [id number] Specimen Comment: Source.............Cervix Specimen Comment: LMP / Prev Treat...[id number] Specimen Comment: No. of containers..01 ThinPrep Vial [...] Performed By: #### L 7400.0280, L3410.9992 #### [facility] [address] [place], [place], [address] PERFORM Comment Normal . [facility] Comment on above: Order Comment: Speci men Comment: [id number] Specimen Comment: Source.............Cervix Specimen Comment: LMP / Prev Treat...[id number] Specimen Comment: No. of containers..01 ThinPrep Vial Result Comment: Hailey Saxena, Complex Director (ASCP) Performed By: #### L 7400.0280, L3410.9992 #### [facility] [address] [place], [place], [address] L3410.9992on 01-04-2025 [facility]. COMMENT Normal . [facility] Comment on above: Order Comment: EDUARDOCARMELA DAVIS RMT [id number] NUSWAB VG+ Result Comment: Test Ordered: [id number] NuSwab Vaginitis Plus (VG+) Test(s) 17991018- Atopobium vaginae; 17991019- BVAB 2; 807871- Megasphaera 1 was developed and its performance characteristics determined [facility]. It has not been cleared or approved by the Food and Drug Administration. Test(s) 236075-Jhvytqj albicans, KATELYNN; 971654- Na glabrata, KATELYNN was developed and its performance characteristics determined by [facility]. It has not been cleared or approved [...] Negative =G Reference Range: Negative Performed at: =[address] [id number] Auto Claims Adjuster: Luz Marina Sherman MD, Phone: [phone] Performed at: [address] [id number] Auto Claims Adjuster: Steve Salas PhD, Phone: [phone] Performed By: #### L 7400.0280, L3411.9992 #### [facility] [address] [place], [place], [address] HSV 1 AND 2 IgGon 01-02-2025 HSV 1 IgG Reactive Abnormal Non Reactive [facility] Comment on above: Result Comment: Pl ease note reference interval change HSV-1 IgG testing performed using the [employer] HSV-1 IgG assay. Performed By: #### L 3400.1610, L509.8002, L3890.6006, L3000.8550 ####[facility] [address] [facility]. [place], [place], [address] HSV 2 IgG Non-Reactive Normal Non Reactive [facility] Comment on above: Result Comment: Pl [...] [employer] HSV-2 IgG assay. Performed at: [address] [id number] Auto Claims Adjuster: Steve Salas PhD, Phone: [phone] Performed By: #### L 3400.1610, L509.8002, L3890.6006, L3000.0375 ####[facility] [address] [place], [place], [address] Hepatitis Panel Acuteon 08-1 COMMENT Comment Normal . [facility] Comment on above: Result Comment: Not infected with HCV unless early or acute infection is suspected (which may be delayed in an immunocompromised individual), or other evidence exists to indicate HCV infection. Performed By: #### L 3400.1610, L509.8002, L3890.6006, L3000.0375 ####[facility] [address] [place], [place], [address] HEP B CORE,IgM Negative Normal Negative [facility] Comment on above: Performed By: #### L 3400.1610, L509.8002, L3890.6006, L3000.0375 ####[facility] [address] [place], [place], [address] HEP B SURF AG Negative Normal Negative [facility] Comment on above: Performed By: #### L 3400.1610, L509.8002, L3890.6006, L3000.0375 ####[facility] [address] [place], [address] HEP C VIRUS AB Non-Reactive Normal Non Reactive [facility] Comment on above: Performed By: #### L 3400.1610, L509.8002, L3890.6006, L3000.0375 ####[facility] [address] [place], [place], [address] HEPATITIS A-IgM Negative Normal Negative [facility] Comment on above: Result Comment: A ne gative anti-HAV IgM result suggests no recent or current HAV infection. Performed By: #### L 3400.1610, L509.8002, L3890.6006, L3000.0375 ####[facility] [address] [place], [place], [address] Cervical or vaginal specimen microscopic examination by liquid based cytology (reportOrdered By: Nicole Alvarado on 12-31-2024 Cytology report Cyto stain.thin prep Doc (Cvx/Vag) Comment . [facility] Comment on above: Criteria not met, HP V Genotype not performed.Performed at: - [address] [id number] Director: Luz Marina Sherman MD, Phone: [phone] at: =[facility] [id number] Director: Luz Marina Sherman MD, Phone: [phone] Cervical or vagninal specime n microscopic examination by cytology stain (reported asOrdered By: Nicole Alvarado on 12-31-2024 Cytology report Cyto stain Doc (Cvx/Vag) Comment . [facility] Comment on above: The Pap smear [...] DNA Probe+sig amp Ql (Cvx) Negative Negative [facility] Comment on above: This nucleic acid am plification test detects fourteen high-risk HPV types (16,18,31,33,35,39,45,51,52,56,58,59,66,68)without differentiation. HIVon 12-31-2024 HIV Non-Reactive Normal Nonreactive [facility] Comment on above: Result Comment: Non- Reactive Reactive Repeatedly reactive samples must be confirmed according to CDC recommended confirmatory algorithms. The subresults for either HIVAG or AHIV can be used as an aid in the selection of the confirmation algorithm for reactive samples. Send out specimens with Reactive results to [facility] for confirmation. Order the HIV antibody detection and differentiation: [id number] Performed By: #### L 3400.1610, L509.8002, L3890.6006, L3000.0375 ####[facility] [address] [place], [address] Laboratory - CytologyOrdered By: Nicole Alvarado on 12-31-2024 Complex Director Cyto stain Nom (Cvx/Vag) [ID] Comment . [facility] Comment on above: Marcy Saxena Cytol ogist (ASCP) Laboratory - Miscellaneous t estsOrdered By: Nicole Alvarado on 12-31-2024 Service comment (Unsp spec) [Interp] . . [facility] No Panel InformationOrdered By: Nicole Alvarado on 12-31-2024 Hepatitis C Antibody Comment Comment . [facility] Comment on above: Not infected with HC V unless early or acute infection issuspected (which may be delayed in an immunocompromisedindividual), or other evidence exists to indicate HCVinfection. HIV (1&2) Antibody Non-Reactive Nonreactive [facility] Comment on above: Non-ReactiveReactive Repeatedly reactive samples must be confirmed according to CDC recommended confirmatory algorithms. The subresults for either HIVAG or AHIV can be used as an aid in the selection of the confirmation algorithm for reactive samples.Send out specimens with Reactive results to [facility] for confirmation.Order the HIV antibody detection and differentiation: #[id number] Pap Smear Specimen Adequacy Comment . [facility] Comment on above: Satisfactory for brandon luation. Endocervical and/or squamous metaplasticcells (endocervical component) are present. Serum herpes simplex virus 2 antibody assay by immunoassay (units/volume)Ordered By: Nicole Alvarado on 12-31-2024 HSV 2 Ab IA Qn (S) Non-Reactive Non Reactive [facility] Comment on above: Please note refere nce [...] HSV-2. HSV-2 IgG testing performed using the [employer] HSV-2 IgG assay.Performed at: [place] [id number] Director: Steve Salas PhD, Phone: [phone] Serum or plasma hepatitis B virus surface antigen detection by immunoassayOrdered By: Nicole Alvarado on 12-31-2024 HBV surface Ag IA Ql Negative Negative [facility] Syphilis Antibodieson 2024 Syphilis Abs Non-Reactive Normal Nonreactive [facility] Comment on above: Performed By: #### L 3400.1610, L509.8002, L3890.6006, L3000.0375 ####[facility] [address] [facility] [address] [place], [address] Discharge Instructionon 11-18 Discharge Instruction [facility] Medical Records Department [address] [place] [address] Instructions for Home/Discharge Instructions 12/11/24 0821 MR#: [id number] Acct: [id number] Name: CHRISTA COLBERT Rep #: [id number] : 1990 34 From: Ezio Mclean MD [...] MD; Dr. Yrn Yepez MD Signed Normal [facility] Absolute lymphocyte countOrd ered By: ED PROVIDER on 12-07-2024 Lymphocytes Auto (Unsp spec) [#/Vol] 1.70 10*3/uL 0.83-4.51 [facility] Absolute neutrophil countOrd ered By: ED PROVIDER on 12-07-2024 Neutrophils (Bld) [#/Vol] 2.4 10*3/uL 2.0-7.7 [facility] Alcohol, Blood (Medical)-Ser umon 12-07-2024 SERUM ETOH < 10.1 Normal <=10.0 [facility] Comment on above: Result Comment: This test is for medical purposes only. The legal definition of intoxication varies according to local law. Performed By: #### L 501.9100, L700.6800, L500.2500, L100.0100, L505.5000 #### [facility] [address] [place], [place], [address] Amphetamine detection with 1 000 ng/mL as cutoffOrdered By: Jaden Yepez on 12-07-2024 Amphetamines Screen method >1000 ng/mL Ql (U) Positive <1000 ng/mL [facility] Comment on above: If confirmation test ing is needed, a separate order will be required to send out testing to the reference laboratory. Amphetamines Screen method >1000 ng/mL Ql (U) Negative < 200 ng/mL [facility] Anion gap in Serum or Plasma Ordered By: ED PROVIDER on 12-07-2024 Anion gap [Moles/Vol] 12 mmol/L 5-15 [facility] Automated lymphocyte count a s percentage of total leukocytesOrdered By: ED PROVIDER on 12-07-2024 Lymphocytes/100 WBC Auto (Unsp spec) 38.0 % -41 [facility] BUN/creatinine ratioOrdered By: ED PROVIDER on 12-07-2024 Urea nitrogen/Creatinine [Mass ratio] 17.0 mg/mg 10- [facility] Basic Metabolic Profile (BMP )on 12-07-2024 BUN/CRE 17.0 RATIO Normal - [facility] Comment on above: Performed By: #### L 501.9100, L700.6800, L500.2500, L100.0100, L505.5000 #### [facility] [address] [place], [place], [address] Calcium [Mass/Vol] 9.1 mg/dL Normal 7.6-11.0 [facility] Comment on above: Performed By: #### L 501.9100, L700.6800, L500.2500, L100.0100, L505.5000 #### [facility] [address] [place], [address] Chloride [Moles/Vol] 104 mmol/L Normal 98-108 [facility] Comment on above: Performed By: #### L 501.9100, L700.6800, L500.2500, L100.0100, L505.5000 #### [facility] [address] [place], [address] CO2 [Moles/Vol] 23.1 mmol/L Normal 21.0-32.0 [facility] Comment on above: Performed By: #### L 501.9100, L700.6800, L500.2500, L100.0100, L505.5000 #### [facility] [address] [place], [address] Creatinine [Mass/Vol] 0.72 mg/dL Normal 0.70-1.20 [facility] Comment on above: Performed By: #### L 501.9100, L700.6800, L500.2500, L100.0100, L505.5000 #### [facility] [address] [place], [address] ECRCL 117.70 ml/min Normal 50-250 [facility] Comment on above: Performed By: #### L 501.9100, L700.6800, L500.2500, L100.0100, L505.5000 #### [facility] [address] [place], [address] GAP 12 Normal 5-15 [facility] Comment on above: Performed By: #### L 501.9100, L700.6800, L500.2500, L100.0100, L505.5000 #### [facility] [address] [place], [address] GFR/1.73 sq M.predicted among non-blacks MDRD (S/P/Bld) [Vol rate/Area] 112 mL/min/{1.73_m2} Normal >60 [facility] Comment on above: Result Comment: mL/m in/1.73m2 CKD-EPI Creatinine Equation (2020) Performed By: #### L 501.9100, L700.6800, L500.2500, L100.0100, L505.5000 #### [facility] [address] [place], [address] Glucose [Mass/Vol] 112 mg/dL High 70-99 [facility] Comment on above: Performed By: #### L 501.9100, L700.6800, L500.2500, L100.0100, L505.5000 #### [facility] [address] [place], [address] Potassium [Moles/Vol] 3.9 mmol/L Normal 3.3-5.1 [facility] Comment on above: Performed By: #### L 501.9100, L700.6800, L500.2500, L100.0100, L505.5000 #### [facility] [address] [place], [address] Sodium [Moles/Vol] 139 mmol/L Normal 133-145 [facility] Comment on above: Performed By: #### L 501.9100, L700.6800, L500.2500, L100.0100, L505.5000 #### [facility] [address] [place], [address] Urea nitrogen [Mass/Vol] 12 mg/dL Normal 4-19 [facility] Comment on above: Performed By: #### L 501.9100, L700.6800, L500.2500, L100.0100, L505.5000 #### [facility] [address] [place], [address] Basophil percentageOrdered B y: ED PROVIDER on 12-07-2024 Basophils/100 WBC (Bld) 0.4 % 0-1 [facility] Blood manual differential co mment interpretation (narrative result)Ordered By: Jaden Yepez on 12-07-2024 Manual differential comment Abdifatah (Bld) [Interp] SCANNED [facility] CBC W/Diff, Automatedon 11-18 PLT EST ADEQUATE Normal ADEQ [facility] Comment on above: Performed By: #### L 501.9100, L700.6800, L500.2500, L100.0100, L505.5000 #### [facility] [address] [place], [address] SMEAR COMMENT SCANNED Normal [facility] Comment on above: Performed By: #### L 501.9100, L700.6800, L500.2500, L100.0100, L505.5000 #### [facility] [address] [place], [address] Carbon dioxide, total [Moles /volume] in Central venous bloodOrdered By: ED PROVIDER on 12-07-2024 CO2 [Moles/Vol] 23.1 mmol/L 21.0-32.0 [facility] Chloride assayOrdered By: ED PROVIDER on 12-07-2024 Chloride [Moles/Vol] 104 mmol/L 98-108 [facility] Emergency Department Summary on 12-07-2024 Emergency Department Summary [facility] Medical Records Department [address] [place] [address] Emergency Department Summary 12/07/24 MR#: [id number] Acct: [id number] Name: CHRISTA COLBERT Rep #: [id number] : 1990 34 From: Jaden Yepez DO [...] Surgical History History of removal of cyst [place] teeth extracted Social History household members: other details: sober living current occupational status: employed current occupation: [employer] Smoking Status: Current every day smoker tobacco [...] % (Auto) 54.5 Lymph % (Auto) 38.0 [place] % (Auto) 6.9 Eos % (Auto) 0.0 Baso % (Auto) 0.4 Absolute Neuts (auto) 2.4 Absolute Lymphs (auto) 1.70 Nucleated RBC % 0 (more content not included)... Normal [facility] Eosinophil percentageOrdered By: ED PROVIDER on 12-07-2024 Eosinophils/100 WBC (Bld) 0.0 % 0-5 [facility] Erythrocyte distribution wid th ratioOrdered By: ED PROVIDER on 12-07-2024 Erythrocyte distribution width (RBC) [Ratio] 13.1 % 11.6-14.6 [facility] Erythrocyte distribution wid th standard deviationOrdered By: ED PROVIDER on 12-07-2024 Erythrocyte distribution width (RBC) [Ratio] 41.5 fl 35.1-43.9 [facility] Glomerular filtration rate ( GFR) estimation/1.73 sq m using serum, plasma, or whole bOrdered By: ED PROVIDER on 12-07-2024 GFR/1.73 sq M.predicted among non-blacks MDRD (S/P/Bld) [Vol rate/Area] 112 mL/min/{1.73_m2} >60 [facility] Comment on above: mL/min/1.73m2 CKD-EP I Creatinine Equation (2020) Hematocrit Auto (Bld) [Volum e fraction]Ordered By: ED PROVIDER on 12-07-2024 Hematocrit (Bld) [Volume fraction] 34.9 % Low 37-47 [facility] Hemoglobin measurementOrdere d By: ED PROVIDER on 12-07-2024 Hemoglobin (Bld) [Mass/Vol] 12.0 g/dL 12.0-15.0 [facility] Immature granulocytes/100 WB C Auto (Bld)Ordered By: ED PROVIDER on 12-07-2024 Immature granulocytes/100 WBC (Bld) 0.200 % 0.0-0.9 [facility] Comment on above: IG% - Immature Granu locytes (promyelocytes, myelocytes and metamyelocytes) > 1% indicates that a LEFT SHIFT is Present. MCV (mean corpuscular volume ) determinationOrdered By: ED PROVIDER on 12-07-2024 MCV (RBC) [Entitic vol] 87.5 fL 81-99 [facility] Mean corpuscular hemoglobin (MCH) determinationOrdered By: ED PROVIDER on 12-07-2024 MCH (RBC) [Entitic mass] 30.1 pg 27.0-32.0 [facility] Mean corpuscular hemoglobin concentration (MCHC) determinationOrdered By: ED PROVIDER on 12-07-2024 MCHC (RBC) [Mass/Vol] 34.4 g/dL 32-36 [facility] Mean platelet volume determi nationOrdered By: ED PROVIDER on 12-07-2024 Platelet mean volume (Bld) [Entitic vol] 9.4 fL 6.2-12.0 [facility] Monocyte percentageOrdered B y: ED PROVIDER on 12-07-2024 Monocytes/100 WBC (Bld) 6.9 % 0-10 [facility] Neutrophil percentageOrdered By: ED PROVIDER on 12-07-2024 Neutrophils/100 WBC (Bld) 54.5 % 47-70 [facility] No Panel InformationOrdered By: Jaden Yepez on 12-07-2024 Urine Buprenorphine Qualitative Negative < 200 ng/mL [facility] Urine Oxycodone Screen Negative < 100 ng/mL [facility] Nucleated red blood cell per centageOrdered By: ED PROVIDER on 12-07-2024 Nucleated RBC/100 WBC (Bld) [Ratio] 0 % 0-5 [facility] Platelet countOrdered By: ED PROVIDER on 12-07-2024 Platelets (Bld) [#/Vol] 216 10*3/uL 150-450 [facility] Platelet estimateOrdered By: Jaden Yepez on 12-07-2024 Platelets LM Ql (Bld) ADEQUATE ADEQ [facility] Potassium measurement (mass/ volume)Ordered By: ED PROVIDER on 12-07-2024 Potassium (Unsp spec) [Mass/Vol] 3.9 mmol/L 3.3-5.1 [facility] ,Serum,hCG Quali.on 12-07-2024 HCG, SERUM QUAL Negative Normal [facility] Comment on above: Order Comment: if fe male and of childbearing age (8-55 years old) Performed By: #### L 501.9100, L700.6800, L500.2500, L100.0100, L505.5000 #### [facility] [address] [place], [address] Quantitative urine opiates m easurementOrdered By: Jaden Yepez on 12-07-2024 Opiates Ql (U) Negative < 300 ng/mL [facility] RBC Auto (Bld) [#/Vol]Ordere d By: ED PROVIDER on 12-07-2024 RBC (Bld) [#/Vol] 3.99 10*6/uL Low 4.2-5.4 [facility] Screening urine fentanyl traci surementOrdered By: Jaden Yepez on 12-07-2024 fentaNYL Screen Ql (U) Positive [facility] Comment on above: If confirmation test ing is needed, a separate order will be required to send out testing to the reference laboratory. Serum beta-hCG test, qualita tiveOrdered By: Jaden Yepez on 12-07-2024 Beta HCG ( test) Ql Negative [facility] Serum creatinine measurement (mass/volume)Ordered By: ED PROVIDER on 12-07-2024 Creatinine [Mass/Vol] 0.72 mg/dL 0.70-1.20 [facility] Serum glucose measurement (m ass/volume)Ordered By: ED PROVIDER on 12-07-2024 Glucose [Mass/Vol] 112 mg/dL High 70-99 [facility] Serum or plasma calcium bebeto urement (mass/volume)Ordered By: ED PROVIDER on 12-07-2024 Calcium [Mass/Vol] 9.1 mg/dL 7.6-11.0 [facility] Serum or plasma ethanol bebeto urement (mass/volume)Ordered By: ED PROVIDER on 12-07-2024 Ethanol [Mass/Vol] mg/dL <10.1 [facility] Comment on above: This test is for med ical purposes only. The legal definition of intoxication varies according to local law. Serum or plasma urea nitroge n measurement (mass/volume)Ordered By: ED PROVIDER on 12-07-2024 Urea nitrogen [Mass/Vol] 12 mg/dL 4-19 [facility] Sodium levelOrdered By: PEPE ORELLANA on 12-07-2024 Sodium [Moles/Vol] 139 mmol/L 133-145 [facility] Urine Drug Screen (VISTA)on 12-07-2024 AMPHETAMINES Positive Normal <1000 ng/mL [facility] Comment on above: Result Comment: If c onfirmation testing is needed, a separate order will be required to send out testing to the reference laboratory. Performed By: #### L 501.9100, L700.6800, L500.2500, L100.0100, L505.5000 #### [facility] [address] [place] [address] BARBITIURATES Negative Normal < 200 ng/mL [facility] Comment on above: Performed By: #### L 501.9100, L700.6800, L500.2500, L100.0100, L505.5000 #### [facility] [address] [place] [address] BENZODIAZIPINE Negative Normal < 200 ng/mL [facility] Comment on above: Performed By: #### L 501.9100, L700.6800, L500.2500, L100.0100, L505.5000 #### [facility] [address] [place], [place], [facility] BUP Ur Drug Scr Negative Normal < 200 ng/mL [facility] Comment on above: Performed By: #### L 501.9100, L700.6800, L500.2500, L100.0100, L505.5000 #### [facility] [address] [place] [address] COCAINE Negative Normal < 300 ng/mL [facility] Comment on above: Performed By: #### L 501.9100, L700.6800, L500.2500, L100.0100, L505.5000 #### [facility] [address] [place], [address] Fentanyl Positive Normal [facility] Comment on above: Result Comment: If c onfirmation testing is needed, a separate order will be required to send out testing to the reference laboratory. Performed By: #### L 501.9100, L700.6800, L500.2500, L100.0100, L505.5000 #### [facility] [address] [place], [address] METHADONE Negative Normal < 300 ng/mL [facility] Comment on above: Performed By: #### L 501.9100, L700.6800, L500.2500, L100.0100, L505.5000 #### [facility] [address] [place], [address] OPIATES Negative Normal < 300 ng/mL [facility] Comment on above: Performed By: #### L 501.9100, L700.6800, L500.2500, L100.0100, L505.5000 #### [facility] [address] [place], [address] OXYCODONE Negative Normal < 100 ng/mL [facility] Comment on above: Performed By: #### L 501.9100, L700.6800, L500.2500, L100.0100, L505.5000 #### [facility] [address] [place], [address] PCP Negative Normal < 25 ng/mL [facility] Comment on above: Performed By: #### L 501.9100, L700.6800, L500.2500, L100.0100, L505.5000 #### [facility] [address] [place], [address] THC Negative Normal < 50 ng/mL [facility] Comment on above: Performed By: #### L 501.9100, L700.6800, L500.2500, L100.0100, L505.5000 #### [facility] [address] [place], [address] Urine benzodiazepine levelOr dered By: Jaden Yepez on 12-07-2024 Benzodiazepines Ql (U) Negative < 200 ng/mL [facility] Urine cocaine levelOrdered B y: Jaden Yepez on 12-07-2024 Cocaine Ql (U) Negative < 300 ng/mL [facility] Urine npgya-8-xfmpubrgewaron abinol (THC) measurementOrdered By: Jaden Camargo on 12-07-2024 Cannabinoids Screen Ql (U) Negative < 50 ng/mL [facility] Urine phencyclidine (PCP) de tectionOrdered By: Jaden Yepez on 12-07-2024 Phencyclidine Ql (U) Negative < 25 ng/mL [facility] White blood cell (WBC) count Ordered By: ED PROVIDER on 12-07-2024 WBC (Bld) [#/Vol] 4.5 10*3/uL 4.4-11.0 [facility] CNOVon 10-26-2024 [facility] Office Visit (UCWSTR) CHRISTA COLBERT ([id number]) 1990 F Date Time Provider Department 10/26/24 6:45 PM CATIE FLORES [facility] During your visit today, we recorded the following information about you: Temperature Pulse Respiration Blood pressure 97.6 degrees 101/minute 18/minute 132/82 Weight 70.6 kg Catie Flores APRN.CONTRACT DESIGN AGENT 10/26/2024 7:31 PM Signed Subjective The history is provided by the patient. No pediatric speech language pathologist was used. MARY LOU Colbert is a [...] have confirmed and edited as necessary, the [facility] Review of Systems Constitutional: Negative for chills [...] 10/26/2024 Noted Resolved Anxiety disorder [F41.9] 08/14/2022 halfway current use of antipsychotic medicati*09/28/2022 Other instructions [...] FLORES on (more content not included)... Normal [facility] CNOVon 04-14-2024 CNOV Office Visit (UCWSTR) CHRISTA COLBERT ([id number]) 1990 F Date Time Provider Department 04/14/24 5:00 PM CLAUSTUCKER [facility] During your visit today, we recorded the following information about you: Temperature Pulse Respiration Blood pressure 98.1 degrees 96/minute 18/minute 129/84 Weight 83.8 kg Tucker Devlin APRN.[facility] 04/14/2024 5:21 PM Signed Subjective HPI HPI [...] PROPIONATE 50 MCG/ACTUATION NASAL SPRAY,SUSPENSION Tucker Devlin APRN.CONTRACT DESIGN AGENT Allergies As of Date: 04/14/2024 (No Known Allergies) Date Reviewed: 04/14/2024 Reviewed by: Aylin Escalante MA - Fully Assessed Reason for Visit: Sore Throat [200] Cmt: Fatigue, bilateral ear pressure and muffled hearing x4 days, strep exposure Primary Visit Diagnosis:Sore throat [J02.9] Order(s):STREP A MOLECULAR (POC) [6217916] Order #: [id number]. #:[id number] predniSONE (DELTASONE) 20 mg tabletTake 2 tablets by mouth once da (more content not included)... Normal [facility] STREP A MOLECULAR (POC)on Procedural Control Valid [facility] Strep A (POCT) Negative Negative [facility] Internal Medicine Office Vis iton 03-16-2024 Internal Medicine Office Visit [facility] [place] [address] [place] [address] OFFICE VISIT Date of Service: 03/17/24 MR#: [id number] Acct: [id number] Name: CHRISTA COLBERT Rep #: [id number] : 1990 Provider: Dr. Odin salinas MD Age/Sex: 34/F Location: [facility] Status: Signed Intake Vital Signs 09/05/23 15:05 [...] M FU Chief Complaint: 6 M FU Diamond Cleaner Required: No Is patient in pain?: No [...] to wean off remeron. Declines flu vaccine. [facility] Medical History HPV in female Back problem Substance abuse Smoker Irregular heart beat PTSD (post-traumatic stress disorder) Depression Anxiety Asthma Surgical History History of removal of cyst [place] teeth extracted Family History Father Myocardial infarction 70s Hypertension Social History household members: other details: sober living current occupational status: employed current occupation: [employer] Smoking Status: Current every day smoker tobacco [...] nasal conges (more content not included)... Normal [facility] STREP A MOLECULAR (POC)on Procedural Control Valid [facility] Strep A (POCT) Negative Negative [facility] STREP A MOLECULAR (POC)on Procedural Control Valid [facility] Strep A (POCT) Negative Negative [facility] COVID NAAT, UPPER RESPIRATOR Y, ROUTINEon 03-27-2023 SARS-CoV-2 (COVID-19) RNA KATELYNN+probe Ql (Resp) Not detected See comment [facility] ROUTINE FLU A/B + RSVon FLUAV RNA KATELYNN+probe Ql (Unsp spec) Not detected Not Detected [facility] FLUBV RNA KATELYNN+probe Ql (Unsp spec) Not detected Not Detected [facility] RSV A RNA KATELYNN+probe Ql (Unsp spec) Not detected Not Detected [facility] HCG QUAL UR B/Oon 01-08-2023 status Negative neg - pos [facility] Quality Check Yes [facility] Absolute lymphocyte countOrd ered By: Dr. Abraham on 08-09-2022 Lymphocytes Auto (Unsp spec) [#/Vol] 1.27 10*3/uL 0.83-4.51 [facility] Basophil percentageOrdered B y: Dr. Abraham on 08-09-2022 Basophils/100 WBC (Bld) 0.5 % 0-1 [facility] Bilirubin [Mass/Vol] 0.70 mg/dL 0.20-1.00 [facility] Comment on above: For patients on eltr ombopag therapy, use of Dimension Skipwith TBIL is not recommended. Chloride [Moles/Vol] 107 mmol/L 98-107 [facility] Cholesterol [Mass/Vol] 164 mg/dL <200 [facility] Comment on above: <200 mg/dL Desirable 200-240 mg/dL Borderline >240 mg/dL High Risk Eosinophils/100 WBC (Bld) 0.8 % 0-5 [facility] Glucose [Mass/Vol] 95 mg/dL 74-106 [facility] Neutrophils (Bld) [#/Vol] 5.0 10*3/uL 2.0-7.7 [facility] Neutrophils/100 WBC (Bld) 74.7 % 47-70 [facility] Potassium [Moles/Vol] 3.6 mmol/L 3.5-5.1 [facility] Protein [Mass/Vol] 8.0 g/dL 6.4-8.2 [facility] Sodium [Moles/Vol] 141 mmol/L 136-145 [facility] Triglyceride [Mass/Vol] 136 mg/dL <199 [facility] Comment on above: The drugs N-Acetylcy steine and Metamizole may falsely depress this assay.Serum Triglycerides Reference Interval Normal <150 mg/dL Borderline high 150 - 199 mg/dL High 200 - 499 mg/dL Very High > or = 500 mg/dL WBC (Bld) [#/Vol] 6.7 10*3/uL 4.4-11.0 [facility] Blood erythrocytes count (nu mber/volume)Ordered By: Dr. Abraham on 08-09-2022 RBC (Bld) [#/Vol] 4.46 10*6/uL 4.2-5.4 [facility] Blood hemoglobin measurement (mass/volume)Ordered By: Dr. Abraham on 08-09-2022 Hemoglobin (Bld) [Mass/Vol] 13.7 g/dL 12.0-15.0 [facility] Blood lymphocytes/100 leukoc ytesOrdered By: Dr. Abraham on 08-09-2022 Lymphocytes/100 WBC (Bld) 19.1 % 19-41 [facility] Blood monocytes/100 leukocyt esOrdered By: Dr. Abraham on 08-09-2022 Monocytes/100 WBC (Bld) 4.7 % 0-10 [facility] Blood platelet mean volumeOr dered By: Dr. Abraham on 08-09-2022 Platelet mean volume (Bld) [Entitic vol] 9.4 fL 6.2-12.0 [facility] Determination of erythrocyte mean corpuscular volume (MCV)Ordered By: Dr. Abraham on 08-09-2022 MCV (RBC) [Entitic vol] 91.7 fL 81-99 [facility] HIV 1 and HIV-2 antibody ass ay with HIV-1 p24 antigen detectionOrdered By: Dr. Abraham on 08-09-2022 HIV 1+2 Ab+HIV1 p24 Ag IA Ql Non-Reactive Nonreactive [facility] Hematocrit Auto (Bld) [Volum e fraction]Ordered By: Dr. Abraham on 08-09-2022 Hematocrit (Bld) [Volume fraction] 40.9 % 37-47 [facility] - Chemistry and C hemistry - challengeOrdered By: Dr. Abraham on 08-09-2022 ALP [Catalytic activity/Vol] 45 U/L 45-117 [facility] ALT [Catalytic activity/Vol] 17 U/L 13-56 [facility] CO2 [Moles/Vol] 27.0 mmol/L 21.0-32.0 [facility] Globulin (S) [Mass/Vol] 3.6 g/dL 2.2-4.2 [facility] Urea nitrogen/Creatinine [Mass ratio] 11.6 mg/mg 10-20 [facility] - Hematology and Cell countsOrdered By: Dr. Abraham on 08-09-2022 Erythrocyte distribution width (RBC) [Entitic vol] 41.6 fL 35.1-43.9 [facility] Erythrocyte distribution width (RBC) [Ratio] 12.6 % 11.6-14.6 [facility] Immature granulocytes/100 WBC (Bld) 0.200 % 0.0-0.9 [facility] Comment on above: IG% - Immature Granu locytes (promyelocytes, myelocytes and metamyelocytes) > 1% indicates that a LEFT SHIFT is Present. MCH (RBC) [Entitic mass] 30.7 pg 27.0-32.0 [facility] Nucleated RBC/100 WBC (Bld) [Ratio] 0 % 0-5 [facility] MCHC Auto (RBC) [Mass/Vol]Or dered By: Dr. Abraham on 08-09-2022 MCHC (RBC) [Mass/Vol] 33.5 g/dL 32-36 [facility] No Panel InformationOrdered By: Dr. Abraham on 08-09-2022 Estimated GFR (MDRD) Amer 98 mL/min >60 [facility] Comment on above: GFR Calc Estimated GFR (MDRD) Non-Af Amer 81 mL/min >60 [facility] Comment on above: Non- GFR Calc Hepatitis A IgM Antibody Negative Negative [facility] Hepatitis B Core IgM Antibody Negative Negative [facility] Hepatitis C Antibody (EIA) Non-Reactive Non Reactive [facility] Hepatitis C Antibody Comment Comment . [facility] Comment on above: Not infected with HC V unless early or acute infection issuspected (which may be delayed in an immunocompromisedindividual), or other evidence exists to indicate HCVinfection.Performed at: - [facility] [address] [id number] Director: Steve Salas PhD, Phone: [phone] Thyroid Stimulating Hormone (TSH) 1.22 uIU/mL 0.358-3.74 [facility] Platelets bldOrdered By: Dr. Abraham on 08-09-2022 Platelets (Bld) [#/Vol] 255 10*3/uL 150-450 [facility] Serum or plasma albumin bebeto urement (mass/volume)Ordered By: Dr. Abraham on 08-09-2022 Albumin [Mass/Vol] 4.4 g/dL 3.2-5.0 [facility] Serum or plasma albumin/glob ulin mass ratioOrdered By: Dr. Abraham on 08-09-2022 Albumin/Globulin [Mass ratio] 1.2 {ratio} 0.9-2.4 [facility] Serum or plasma calcium bebeto urement (mass/volume)Ordered By: Dr. Abraham on 08-09-2022 Calcium [Mass/Vol] 9.3 mg/dL 8.5-10.1 [facility] Serum or plasma cholesterol in HDL measurement (mass/volume)Ordered By: Dr. Abraham on 08-09-2022 Cholesterol in HDL [Mass/Vol] 62 mg/dL >40 [facility] Comment on above: The drugs N-Acetylcy steine and Metamizole may falsely depress this assay. Reference Range HDL <40 mg/dL Low HDL Cholesterol HDL >or= 60 mg/dL High HDL Cholesterol Serum or plasma cholesterol in VLDL measurement (mass/volume)Ordered By: Dr. Abraham on 08-09-2022 Cholesterol in VLDL [Mass/Vol] 27 mg/dL 5-40 [facility] Serum or plasma creatinine m easurement (mass/volume)Ordered By: Dr. Abraham on 08-09-2022 Creatinine [Mass/Vol] 0.86 mg/dL 0.55-1.02 [facility] Comment on above: The validity of the calculated GFR & GFRAA in patients over 70 years has not been determined. Clinical correlation is essential. Serum or plasma hepatitis B virus surface antigen detection by immunoassayOrdered By: Dr. Abraham on 08-09-2022 HBV surface Ag IA Ql Negative Negative [facility] Serum or plasma low density lipoprotein (LDL) cholesterol measurement (mass/volume)Ordered By: Dr. Abraham on 08-09-2022 Cholesterol in LDL [Mass/Vol] 75 mg/dL 0-130 [facility] Serum or plasma urea nitroge n measurement (mass/volume)Ordered By: Dr. Abraham on 08-09-2022 Urea nitrogen [Mass/Vol] 10 mg/dL 7-18 [facility] Thin prep Papanicolaou smear with manual screeningOrdered By: Dr. Abraham on 08-09-2022 Thin prep Papanicolaou smear with manual screening 9 U/L 15-37 [facility] Thin prep Papanicolaou smear with manual screening 7 5-15 [facility] Whole blood hemoglobin A1c/t otal hemoglobin ratio (mass fraction)Ordered By: Dr. Abraham on 08-09-2022 HbA1c (Bld) [Mass fraction] 4.5 % 3.8-5.6 [facility] Comment on above: Normal < 5.7 % Predi abetic 5.7 - 6.4 % Diabetic >or= 6.5 % Please note range changes. 2019 Novel Coronavirus (CoVI D-19), NAAon 02-29-2020 SARS-CoV-2, KATELYNN Not Detected Normal Not Detected [facility] Comment on above: Result Comment: This nucleic acid amplification test was developed and its performance characteristics determined by [employer]. Nucleic acid amplification tests include PCR and [...] detected) result in this assay. Performed at: [facility] [address] [facility] [place] [id number] [employer] Claims Adjuster: Hermilo Campos MD, Phone: [phone] Performed By: #### C BC #### [place] [address] [address] [facility] CX[facility] Patient: NEVAEH COLBERT MRNIMCO [id number] Location[facility] Aount: [id number] : 1990 Age: 30 Sex F Lab NumbEr [id number] Requested by: PHUONG CROWDER Admitdate: 02/18/20 Source: THR Collected: 02/18/20 18:49 Site: Received : 02/18/20 19:17 Culture, Throat-Strep FINAL 02/20/20 10:32 02/20/[address] GR A: NEGATIVE FOR GROUP A BETA-HEMOLYTIC STREPTOCOCCUS Normal [facility] Comment on above: Performed By: #### C BC #### [address] [address] EMERGENCY DEPARTMENTon 11-24 EMERGENCY DEPARTMENT [place] [id number] HEALTH INFORMATION MANAGEMENT EMERGENCY DEPARTMENT : Signed Patient: NEVAEH COLBERT Acct:[id number] MR N: [id number] : 1990 Sex: F Loc: ED ADM [...] Abuse: No Hx Suspected Abuse: No - [place]/Gender ID What is your current Gender Identity? Choose all that Apply: Female - [place]-Suicide Severity Rating Scale 1) Wish to be [...] ideation - Skin Skin Color: Present: Normal, [place] Skin exam: Present: warm, dry - Expanded [...] % Lymph % (Auto) 21.8 (17.0-45.5) % [place] % (Auto) 7.3 (5.5-11.7) % Eos % [...] 14 (6-20) Glucose 90 (65-100) mg/dL Specific [place] (1.015-1.025) Calcium 8.6 (8.2-10.0) mg/dL Phosphorus (2.5-4.9) [...] Urine Appearance (Clear) Urine pH Ur Specific [place] (1.015-1.025) Urine Protein (Negative) Urine Ketones (Negative) [...] (43.0-65.0) % Lymph % (Auto) (17.0-45.5) % [place] % (Auto) (5.5-11.7) % Eos % (Auto) [...] BUN/Creatinine Ratio (6-20) Glucose (65-100) mg/dL Specific [place] 1.010 L (1.015-1.025) Calcium (8.2-10.0) mg/dL Phosphorus [...] (Clear) Urine pH 8 8.0 Ur Specific [place] 1.010 L (1.015-1.025) Urine Protein Negative (Negative) [...] (43.0-65.0) % Lymph % (Auto) (17.0-45.5) % [place] % (Auto) (5.5-11.7) % Eos % (Auto) [...] BUN/Creatinine Ratio (6-20) Glucose (65-100) mg/dL Specific [place] (1.015-1.025) Calcium (8.2-10.0) mg/dL Phosphorus (2.5-4.9) mg/dL Magnesium (1.3-2.3) mg/dL Total Bilirubin (0.00-0.99) mg/dL AST (3-39) U/L ALT (13-66) U/L Alkaline Phosphatase (54-112) U/L Troponin I, Quant (0.000-0.056) ng/mL Total Protein (6.1-8.2) g/dL Albumin (3.4-5.0) g/dL Globulin (1.5-4.5) g/dL Albumin/Globulin Ratio (1.1-2.5) Beta HCG, Quant mIU/mL Urine Color (Yellow) Urine Appearance (Clear) Urine pH Ur Specific [place] (1.015-1.025) Urine Protein (Negative) Urine Ketones (Negative) [...] report for findings IMPRESSIONS Electrocardiogram 11/18/19 14:38 [facility] ED Test Date: 2019-11-18 Test Time: 17:12:16 Pat Name: NEVAEH COLBERT Department: Room: Gender: F Building Drafting Officer: DWAINE : 1990 Requested By: BRIDGETT JOE Order Number: [id number] Jeanne MD: BRIDGETT JOE Measurements Intervals [place] Rate: 110 P: 72 FL: 133 QRS: 81 QRSD: 80 T: -1 QT: 343 QTc: 465 Interpretive Statements Sinus tachycardia Probable left atrial enlargement Borderline T abnormalities, inferior leads No previous ECG available for comparison Electronically Signed On 11-18-2019 19:07:58 EDT by BRIDGETT JOE Chest X-Ray 11/18/19 16:17 IMPRESSION: No acute process. Electrocardiogram 11/18/19 17:09 [facility] ED Test Date: 2019-11-18 Test Time: 14:27:48 Pat Name: NEVAEH COLBERT Department: Room: Gender: F Building Drafting Officer: DWAINE : 1990 Requested By: BRIDGETT JOE Order Number: [id number] Reading MD: Measurements Intervals [place] Rate: 105 P: 71 FL: 137 QRS: 78 QRSD: 88 T: 1 QT: 347 QTc: 459 Interpretive Statements Sinus tachycardia Probable left atrial enlargement No previous ECG available for comparison - Medical Decision Making Patient was tachycardic upon arrival to the emergency room. She denied any suicidal or homicidal ideation EKG showed sinus tachycardia, normal FL, QTc was 452 Consulted poison control who [...] do not have admission beds available at [facility] hence patient be transferred to [facility] for admission, supportive treatment and for cardiology consult Patient accepted at [facility]. Please see transfer record for further details Patient speech and grasp are intact. No acute neurovascular deficits noted. Patient states understanding of transfer to [facility] and agrees with management and plan - [...] management, discussion with poison control, discussion with third rail installer, arranging transfer of patient to tertiary care [...] Agreed With?: Yes - Dictation Amendments/Documenta tion: [employer] Document Only Electronically Generated By: BRIDGETT JOE MD Generated Date/Time: 11/18/19 1557 Electronically Signed By: BRIDGETT JOE MD Signed Date/Time 11/25/19 1827 Co Signed Electronically By: Co Signed Date/Time: CC: GEORGI GILLETTE [facility] .GFRon 11-21-2019 GFR Non- >60 Normal [facility] ([place]) Comment on above: Result Comment: GFR Population [...] meters Performed By: #### T KHAI #### [place] [address] GFR >60 Normal [facility] ([place]) Comment on above: Result Comment: GFR Population [...] meters Performed By: #### T KHAI #### [address] [address] [facility] 11-21-2019 Creatinine [Mass/Vol] 0.68 mg/dL Normal 0.50-1.20 [facility] ([place]) Comment on above: Performed By: #### T KHAI #### [address] [address] Urea nitrogen/Creatinine [Mass ratio] 13.2 ratio Normal 10.0-22.0 [facility] ([place]) Comment on above: Performed By: #### T KHAI #### [address] [address] Calcium [Mass/Vol] 9.3 mg/dL Normal 8.4-10.1 Replaced by [facility] ([place]) Comment on above: Performed By: #### T KHAI #### [address] [address] Chloride [Moles/Vol] 114 mmol/L High 98-110 [facility] ([place]) Comment on above: Performed By: #### T KHAI #### [address] [address] CO2 [Moles/Vol] 23 mmol/L Normal 22-32 [facility] ([place] Comment on above: Performed By: #### T KHAI #### [address] [address] Electrolyte Balance 8.0 mEq/L Normal 4.0-15.0 [facility] ([place]) Comment on above: Performed By: #### T ROPI #### [address] [address] Glucose [Mass/Vol] 95 mg/dL Normal 70-110 Replaced by [facility] ([place] Comment on above: Performed By: #### T ROPI #### [address] [address] Potassium [Moles/Vol] 3.2 mmol/L Low 3.5-5.0 [facility] ([place]) Comment on above: Performed By: #### T ROPI #### [address] [address] Sodium [Moles/Vol] 145 mmol/L Normal 136-145 Replaced by [facility] ([place] Comment on above: Performed By: #### T ROPI #### [address] [address] Urea nitrogen [Mass/Vol] 9.0 mg/dL Normal 8.0-22.0 [facility] ([place]) Comment on above: Performed By: #### T ROPI #### [address] [address] .Auto Diffon 11-20-2019 Ammonia (P) [Mass/Vol] 0.40 10 3/mcL Normal 0.09-1.40 [facility] ([place]) Comment on above: Performed By: #### T ROPI #### [address] [address] Basophils (Bld) [#/Vol] 0.00 10 3/mcL Normal 0.00-0.27 [facility] ([place]) Comment on above: Performed By: #### T ROPI #### [address] [address] Basophils/100 WBC (Bld) 0.2 % Normal 0.0-2.5 [facility] ([place]) Comment on above: Performed By: #### T ROPI #### [address] [address] Eosinophils (Bld) [#/Vol] 0.00 10 3/mcL Normal 0.00-0.65 [facility] ([place]) Comment on above: Performed By: #### T ROPI #### [address] [address] Eosinophils/100 WBC (Bld) 0.4 % Normal 0.0-6.0 [facility] ([place]) Comment on above: Performed By: #### T ROPI #### [address] [address] Lymphocytes (Bld) [#/Vol] 1.20 10 3/mcL Normal 0.90-4.32 [facility] ([place]) Comment on above: Performed By: #### T ROPI #### [address] [address] Lymphocytes/100 WBC (Bld) 21.0 % Normal 20.0-40.0 [facility] ([place]) Comment on above: Performed By: #### T ROPI #### [address] [address] Monocytes/100 WBC (Bld) 6.7 % Normal 2.0-13.0 [facility] ([place]) Comment on above: Performed By: #### T ROPI #### [address] [address] Neutrophils/100 WBC (Bld) 71.7 % Normal 50.0-75.0 [facility] ([place]) Comment on above: Performed By: #### T ROPI #### [address] [address] .GFRon 11-20-2019 GFR >60 Normal [facility] ([place]) Comment on above: Result Comment: GFR Population [...] meters Performed By: #### T KHAI #### [address] [address] GFR Non- >60 Normal [facility] ([place]) Comment on above: Result Comment: GFR Population [...] meters Performed By: #### Ilda RIDLEY #### [place] [address] .NEUABSon 11-20-2019 Neutrophils (Bld) [#/Vol] 3.90 10 3/mcL Normal 2.25-8.10 [facility] ([place]) Comment on above: Performed By: ###Henri RIDLEY #### [address] [address] CBCon 11-20-2019 Erythrocyte distribution width (RBC) [Ratio] 13.7 % Normal 11.5-15.5 [facility] ([place] Comment on above: Performed By: #### Ilda RIDLEY #### [address] [address] Hematocrit (Bld) [Volume fraction] 34.4 % Normal 34.0-46.0 [facility] ([place] Comment on above: Performed By: #### Ilda RIDLEY #### [address] [address] Hemoglobin (Bld) [Mass/Vol] 12.1 G/dL Normal 12.0-16.0 [facility] ([place] Comment on above: Performed By: #### Ilda RIDLEY #### [address] [address] MCH (RBC) [Entitic mass] 31.1 pg Normal 27.0-33.0 [facility] ([place] Comment on above: Performed By: #### T KHAI #### [address] [address] MCHC (RBC) [Mass/Vol] 35.1 G/dL Normal 32.0-36.0 [facility] ([place] Comment on above: Performed By: #### T KHAI #### [address] [address] MCV (RBC) [Entitic vol] 88.5 fL Normal 80.0-99.0 [facility] ([place] Comment on above: Performed By: #### T KHAI #### [address] [address] Platelet mean volume (Bld) [Entitic vol] 7.3 fL Normal 6.6-10.5 [facility] ([place] Comment on above: Performed By: #### T KHAI #### [address] [address] Platelets (Bld) [#/Vol] 252 10 3/mcL Normal 150-450 [facility] ([place] Comment on above: Performed By: #### T KHAI #### [address] [address] RBC (Bld) [#/Vol] 3.89 10 6/mcL Low 4.10-5.30 [facility] ([place] Comment on above: Performed By: #### T ORTIZI #### [address] [address] WBC (Bld) [#/Vol] 5.50 10 3/mcL Normal 4.50-10.80 [facility] ([place] Comment on above: Performed By: #### T KHAI #### [address] [address] CMPon 11-20-2019 Albumin/Globulin [Mass ratio] 1.1 {ratio} Normal 0.9-1.6 [facility] ([place] Comment on above: Performed By: #### T ROPI #### [address] [address] ALP [Catalytic activity/Vol] 42 U/L Normal 38-126 [facility] ([place] Comment on above: Performed By: #### T ROPI #### [address] [address] ALT [Catalytic activity/Vol] 23 U/L Normal 10-49 [facility] ([place] Comment on above: Performed By: #### T ROPI #### [address] [address] Bili Total 1.0 mg/dL Normal 0.2-1.2 [facility] ([place] Comment on above: Result Comment: Use of this assay is not recommended for patients undergoing treatment with eltrombopag due to the potential for falsely elevated results. Performed By: #### T ROPI #### [place] [id number] Creatinine [Mass/Vol] 0.58 mg/dL Normal 0.50-1.20 [facility] ([place] Comment on above: Performed By: #### T ROPI #### [address] [address] Globulin (S) [Mass/Vol] 3.2 G/dL Normal 1.5-3.8 [facility] [place] Comment on above: Performed By: #### T ROPI #### [address] [address] Protein [Mass/Vol] 6.6 G/dL Normal 6.0-8.5 Replaced by [facility] [place] Comment on above: Performed By: #### T ROPI #### [address] [address] Urea nitrogen/Creatinine [Mass ratio] 15.5 ratio Normal 10.0-22.0 [facility] [place] Comment on above: Performed By: #### T ROPI #### [address] [address] Albumin [Mass/Vol] 3.4 G/dL Normal 3.2-4.8 Replaced by [facility] [place] Comment on above: Performed By: #### T ROPI #### [address] [address] AST [Catalytic activity/Vol] 15 U/L Normal 8-34 [facility] [place] Comment on above: Performed By: #### T ROPI #### [address] [address] Calcium [Mass/Vol] 8.8 mg/dL Normal 8.4-10.1 Replaced by [facility] [place] Comment on above: Performed By: #### T ROPI #### [address] [address] Chloride [Moles/Vol] 113 mmol/L High 98-110 [facility] [place] Comment on above: Performed By: #### T ROPI #### [place] [phone] CO2 [Moles/Vol] 20 mmol/L Low 22-32 [facility] [place] Comment on above: Performed By: #### T ROPI #### [address] [address] Electrolyte Balance 8.0 mEq/L Normal 4.0-15.0 [facility] ([place] Comment on above: Performed By: #### T ROPI #### [address] [address] Glucose [Mass/Vol] 89 mg/dL Normal 70-110 Replaced by [facility] [place] Comment on above: Performed By: #### T ROPI #### [address] [address] Potassium [Moles/Vol] 3.6 mmol/L Normal 3.5-5.0 [facility] ([place] Comment on above: Performed By: #### T ROPI #### [address] [address] Sodium [Moles/Vol] 141 mmol/L Normal 136-145 Replaced by [facility] [place] Comment on above: Performed By: #### T ROPI #### [address] [address] Urea nitrogen [Mass/Vol] 9.0 mg/dL Normal 8.0-22.0 [facility] ([place] Comment on above: Performed By: #### T KHAI #### [address] [address] DRUGUon 11-20-2019 Drug Screen Urine Negative Normal [facility] [place] Comment on above: Performed By: #### T ORTIZI #### [place] [id number] Drug Screen Urine Interp Urine shows no evidence of drugs routinely screened. [facility] [place] Comment on above: Performed By: #### T KHAI #### [address] [address] U pH Drug Scrn 7.0 Normal 5.0-8.0 [facility] [place] Comment on above: Performed By: #### T KHAI #### [place] [id number] U Specific [place] Drg Scrn 1.012 Normal 1.005-1.030 [facility] [place] Comment on above: Performed By: #### T KHAI #### [address] [address] Urine Drugs screened: See Below Normal [facility] ([place] Comment on above: Result Comment: This drug [...] ONLY. Performed By: #### T KHAI #### [address] [address] MGon 11-20-2019 Magnesium [Mass/Vol] 2.0 mg/dL Normal 1.6-2.4 [facility] ([place] Comment on above: Performed By: #### T KHAI #### [address] [address] .Auto Diffon 11-19-2019 Ammonia (P) [Mass/Vol] 0.20 10 3/mcL Normal 0.09-1.40 [facility] ([place]) Comment on above: Performed By: #### C BC, ADIFF, ANEU, DRUGS #### [address] [address] Basophils (Bld) [#/Vol] 0.00 10 3/mcL Normal 0.00-0.27 [facility] ([place]) Comment on above: Performed By: #### C BC, ADIFF, ANEU, DRUGS #### [address] [address] Basophils/100 WBC (Bld) 0.1 % Normal 0.0-2.5 [facility] ([place]) Comment on above: Performed By: #### C BC, ADIFF, ANEU, DRUGS #### [address] [address] Eosinophils (Bld) [#/Vol] 0.00 10 3/mcL Normal 0.00-0.65 [facility] ([place]) Comment on above: Performed By: #### C BC, ADIFF, ANEU, DRUGS #### [address] [address] Eosinophils/100 WBC (Bld) 0.1 % Normal 0.0-6.0 [facility] ([place] Comment on above: Performed By: #### C BC, ADIFF, ANEU, DRUGS #### [address] [address] Lymphocytes (Bld) [#/Vol] 0.80 10 3/mcL Low 0.90-4.32 [facility] ([place]) Comment on above: Performed By: #### C BC, ADIFF, ANEU, DRUGS #### [address] [address] Lymphocytes/100 WBC (Bld) 16.0 % Low 20.0-40.0 [facility] ([place] Comment on above: Performed By: #### C BC, ADIFF, ANEU, DRUGS #### [address] [address] Monocytes/100 WBC (Bld) 4.5 % Normal 2.0-13.0 [facility] [place] Comment on above: Performed By: #### C BC, ADIFF, ANEU, DRUGS #### [address] [address] Neutrophils/100 WBC (Bld) 79.3 % High 50.0-75.0 [facility] [place] Comment on above: Performed By: #### C BC, ADIFF, ANEU, DRUGS #### [address] [address] .GFRon 11-19-2019 GFR >60 Normal [facility] ([place] Comment on above: Result Comment: GFR Population [...] meters Performed By: #### T ROPI #### [address] [address] GFR Non- >60 Normal [facility] [place] Comment on above: Result Comment: GFR Population [...] meters Performed By: #### T ROPI #### [place] [address] .NEUABSon 11-19-2019 Neutrophils (Bld) [#/Vol] 4.20 10 3/mcL Normal 2.25-8.10 [facility] ([place] Comment on above: Performed By: #### C BC, ADIFF, ANEU, DRUGS #### [place] [address] BMPon 11-19-2019 Creatinine [Mass/Vol] 0.55 mg/dL Normal 0.50-1.20 [facility] ([place] Comment on above: Performed By: #### B MP, TSH, GFR #### [place] [address] Urea nitrogen/Creatinine [Mass ratio] 14.5 ratio Normal 10.0-22.0 [facility] ([place] Comment on above: Performed By: #### B MP, TSH, GFR #### [place] [address] Calcium [Mass/Vol] 8.7 mg/dL Normal 8.4-10.1 Replaced by [facility] [place] Comment on above: Performed By: #### B MP, TSH, GFR #### [place] [address] Chloride [Moles/Vol] 112 mmol/L High 98-110 [facility] ([place] Comment on above: Performed By: #### B MP, TSH, GFR #### [address] [address] CO2 [Moles/Vol] 22 mmol/L Normal 22-32 [facility] ([place] Comment on above: Performed By: #### B MP, TSH, GFR #### [place] [address] Electrolyte Balance 8.0 mEq/L Normal 4.0-15.0 [facility] ([place] Comment on above: Performed By: #### B MP, TSH, GFR #### [address] [address] Glucose [Mass/Vol] 94 mg/dL Normal 70-110 Replaced by [facility] [place] Comment on above: Performed By: #### B MP, TSH, GFR #### [address] [address] Potassium [Moles/Vol] 3.4 mmol/L Low 3.5-5.0 [facility] ([place] Comment on above: Performed By: #### B MP, TSH, GFR #### [address] [address] Sodium [Moles/Vol] 142 mmol/L Normal 136-145 Replaced by [facility] [place] Comment on above: Performed By: #### B MP, TSH, GFR #### [address] [address] Urea nitrogen [Mass/Vol] 8.0 mg/dL Normal 8.0-22.0 [facility] ([place] Comment on above: Performed By: #### B MP, TSH, GFR #### [address] [address] CBCon 11-19-2019 Erythrocyte distribution width (RBC) [Ratio] 14.0 % Normal 11.5-15.5 [facility] ([place] Comment on above: Performed By: #### C BC, ADIFF, ANEU, DRUGS #### [address] [address] Hematocrit (Bld) [Volume fraction] 34.9 % Normal 34.0-46.0 [facility] [place] Comment on above: Performed By: #### C BC, ADIFF, ANEU, DRUGS #### [address] [address] Hemoglobin (Bld) [Mass/Vol] 12.1 G/dL Normal 12.0-16.0 [facility] [place] Comment on above: Performed By: #### C BC, ADIFF, ANEU, DRUGS #### [address] [address] MCH (RBC) [Entitic mass] 31.1 pg Normal 27.0-33.0 [facility] [place] Comment on above: Performed By: #### C BC, ADIFF, ANEU, DRUGS #### [address] [address] MCHC (RBC) [Mass/Vol] 34.6 G/dL Normal 32.0-36.0 [facility] ([place] Comment on above: Performed By: #### C BC, ADIFF, ANEU, DRUGS #### [address] [address] MCV (RBC) [Entitic vol] 89.7 fL Normal 80.0-99.0 [facility] [place] Comment on above: Performed By: #### C BC, ADIFF, ANEU, DRUGS #### [address] [address] Platelet mean volume (Bld) [Entitic vol] 7.2 fL Normal 6.6-10.5 [facility] ([place] Comment on above: Performed By: #### C BC, ADIFF, ANEU, DRUGS #### [address] [address] Platelets (Bld) [#/Vol] 249 10 3/mcL Normal 150-450 [facility] ([place] Comment on above: Performed By: #### C BC, ADIFF, ANEU, DRUGS #### [address] [address] RBC (Bld) [#/Vol] 3.89 10 6/mcL Low 4.10-5.30 [facility] ([place] Comment on above: Performed By: #### C BC, ADIFF, ANEU, DRUGS #### [address] [address] WBC (Bld) [#/Vol] 5.30 10 3/mcL Normal 4.50-10.80 [facility] ([place] Comment on above: Performed By: #### C BC, ADIFF, ANEU, DRUGS #### [address] [address] DIMERon 11-19-2019 Fibrin D-dimer FEU IA (Bld) [Mass/Vol] 208 ng/mL D-DU Normal 0-230 [facility] ([place] Comment on above: Result Comment: Resu lts [...] accordingly. Performed By: #### D STEPHANIE #### [place] [address] DRUGSon 11-19-2019 Acetaminophen [Mass/Vol] <2.0 Low 10.0-30.0 [facility] ([place] Comment on above: Performed By: #### C BC ADSHAJI ANEU, DRUGS #### [place] [address] Drug Screen (s) Negative Normal Negative [facility] [place] Comment on above: Performed By: #### C BC ADIFF ANEU, DRUGS #### [place] [address] Drug Screen Interp Serum shows no evidence of drugs routinely screened [facility] ([place] Comment on above: Performed By: #### C BC ADIFF ANEU, DRUGS #### [place] [address] Ethanol Level <10.0 Normal [facility] [place] Comment on above: Performed By: #### C BC, ADIFF, ANEU, DRUGS #### [place] [address] Salicylate Lvl (ds) <2.0 Low 10.0-25.0 [facility] [place] Comment on above: Performed By: #### C BC, ADIFF, ANEU, DRUGS #### [place] [address] Serum Drugs screened: See Below Normal l [facility] ([place] Comment on above: Result Comment: This drug screen is a presumptive screening only. No confirmation will be performed unless requested. Drugs included in the ER serum drug screen are: Threshold Ethanol 10.0 mg/dL Salicylate 2.0 mg/dl Acetaminophen 2.0 mcg/mL Tricyclic Antidepressants 300 ng/mL Testing has been performed FOR MEDICAL PURPOSES ONLY. Performed By: #### C MARICRUZ SUAREZ ANEU DRUGS #### [address] [address] TCA (s) Negative Normal [facility] ([place] Comment on above: Performed By: #### C MARICRUZ SUAREZ ANEU, DRUGS #### [place] [id number] FT4on 11-19-2019 Free T4 [Mass/Vol] 1.03 ng/dL Normal 0.60-1.70 Replaced by [facility] [place] Comment on above: Performed By: #### T KHAI #### [place] [address] TROPIon 11-19-2019 Troponin I.cardiac [Mass/Vol] ng/mL Normal 0.000-0.040 [facility] ([place] Comment on above: Result Comment: Trop onin [...] levels. Performed By: #### T KHAI #### [place] [address] Troponin I.cardiac [Mass/Vol] ng/mL Normal 0.000-0.040 [facility] ([place] Comment on above: Result Comment: Trop onin [...] levels. Performed By: #### T KHAI #### [place] [phone] Troponin I.cardiac [Mass/Vol] ng/mL Normal 0.000-0.040 [facility]) Comment on above: Result Comment: Trop onin [...] levels. Performed By: #### T KHAI #### [place] [phone] TSHon 11-19-2019 TSH Qn 0.150 mcIU/mL Low 0.360-3.740 [facility] ([place] Comment on above: Performed By: #### T KHAI #### [place] [phone] XR CHEST 1 VIEWon 11-19-2019 XR CHEST [...] Date: 11/19/2019 3:25:16 PM Ordering Provider:Jonnathan Johnson [facility]) Acetm Level W/ doseon 2019 Acetaminophen [Mass/Vol] <2.0 Low 10.0-30.0 [facility] Comment on above: Performed By: #### A CETM #### [address] [address] CBC w/Auto Differentialon Anemia DOCUMENT CONTROL ASSOCIATE Normal [facility] Comment on above: Performed By: #### C BC #### [facility] [place] [address] [facility] [place] [address] Anisocytosis Ql (Bld) DOCUMENT CONTROL ASSOCIATE Normal [facility] Comment on above: Performed By: #### C BC #### [facility] [place] [address] [facility] [place] [address] Basophils Abs. # 0.0 K/uL Normal 0.0-0.1 [facility] Comment on above: Performed By: #### C BC #### [facility] [place] [address] [facility] [place] [address] Basophils/100 WBC (Bld) 0.3 % Normal 0.2-1.0 [facility] Comment on above: Performed By: #### C BC #### [facility] [place] [address] [facility] [place] [address] Basophils/100 WBC (Bld) DOCUMENT CONTROL ASSOCIATE Normal [facility] Comment on above: Performed By: #### C BC #### [facility] [place] [address] [facility] [place] [address] Bosophillia # DOCUMENT CONTROL ASSOCIATE Normal [facility] Comment on above: Performed By: #### C BC #### [facility] [place] [address] [facility] [place] [address] Eosinophils (Bld) [#/Vol] DOCUMENT CONTROL ASSOCIATE Normal [facility] Comment on above: Performed By: #### C BC #### [facility] [place] [address] [facility] [place] [address] Eosinophils (Bld) [#/Vol] 0.1 10*3/uL Normal 0.0-0.2 [facility] Comment on above: Performed By: #### C BC #### [facility] [place] [address] [facility] [place] [address] Eosinophils/100 WBC (Bld) DOCUMENT CONTROL ASSOCIATE Normal [facility] Comment on above: Performed By: #### C BC #### [facility] [place] [address] [place] [address] Eosinophils/100 WBC (Bld) 1.3 % Normal 0.9-2.9 [facility] Comment on above: Performed By: #### C BC #### [facility] [place] [address] [place] [address] Erythocytosis DOCUMENT CONTROL ASSOCIATE Normal [facility] Comment on above: Performed By: #### C BC #### [facility] [place] [address] [place] [address] Erythrocyte distribution width (RBC) [Ratio] 14.3 % Normal 11.5-14.5 [facility] Comment on above: Performed By: #### C BC #### [facility] [place] [address] [place] [address] Hematocrit (Bld) [Volume fraction] 32.8 % Low 33.4-46.0 [facility] Comment on above: Performed By: #### C BC #### [facility] [place] [address] [place] [address] Hemoglobin (Bld) [Mass/Vol] 11.3 g/dL Normal 11.1-13.7 [facility] Comment on above: Performed By: #### C BC #### [facility] [place] [address] [place] [address] Hypochromia DOCUMENT CONTROL ASSOCIATE Normal [facility] Comment on above: Performed By: #### C BC #### [facility] [place] [address] [place] [address] Large Platelets DOCUMENT CONTROL ASSOCIATE Normal [facility] Comment on above: Performed By: #### C BC #### [facility] [place] [address] [place] [address] Leukocytosis DOCUMENT CONTROL ASSOCIATE Normal [facility] Comment on above: Performed By: #### C BC #### [facility] [place] [address] [place] [address] Leukopenia DOCUMENT CONTROL ASSOCIATE Normal [facility] Comment on above: Performed By: #### C BC #### [facility] [place] [address] [place] [address] Lymphocytes (Bld) [#/Vol] 1.3 10*3/uL Normal 1.3-2.9 [facility] Comment on above: Performed By: #### C BC #### [facility] [place] [address] [place] [address] Lymphocytes (Bld) [#/Vol] DOCUMENT CONTROL ASSOCIATE Normal [facility] Comment on above: Performed By: #### C BC #### [facility] [place] [address] [place] [address] Lymphocytes/100 WBC (Bld) 21.8 % Normal 17.0-45.5 [facility] Comment on above: Performed By: #### C BC #### [facility] [place] [address] [place] [address] Lymphocytes/100 WBC (Bld) DOCUMENT CONTROL ASSOCIATE Normal [facility] Comment on above: Performed By: #### C BC #### [facility] [place] [address] [place] [address] Lymphocytosis # DOCUMENT CONTROL ASSOCIATE Normal [facility] Comment on above: Performed By: #### C BC #### [facility] [place] [address] [place] [address] Lymphocytosis % DOCUMENT CONTROL ASSOCIATE Normal [facility] Comment on above: Performed By: #### C BC #### [facility] [address] [place] [address] Macrocytosis DOCUMENT CONTROL ASSOCIATE Normal [facility] Comment on above: Performed By: #### C BC #### [facility] [address] [place] [address] MCH (RBC) [Entitic mass] 31.1 pg High 27.0-31.0 [facility] Comment on above: Performed By: #### C BC #### [facility] [address] [place] [address] MCHC (RBC) [Mass/Vol] 34.5 g/dL Normal 33.0-37.0 [facility] Comment on above: Performed By: #### C BC #### [facility] [address] [place] [address] MCV (RBC) [Entitic vol] 90.2 fL Normal 81.0-99.0 [facility] Comment on above: Performed By: #### C BC #### [facility] [address] [place] [address] Microcytosis DOCUMENT CONTROL ASSOCIATE Normal [facility] Comment on above: Performed By: #### C BC #### [facility] [address] [place] [address] Monocytes (Bld) [#/Vol] 0.4 10*3/uL Normal 0.3-0.8 [facility] Comment on above: Performed By: #### C BC #### [facility] [address] [place] [address] Monocytes/100 WBC (Bld) 7.3 % Normal 5.5-11.7 [facility] Comment on above: Performed By: #### C BC #### [facility] [place] [address] [place] [address] Monocytosis % DOCUMENT CONTROL ASSOCIATE Normal [facility] Comment on above: Performed By: #### C BC #### [facility] [place] [address] [place] [address] Neutropenia # DOCUMENT CONTROL ASSOCIATE Normal [facility] Comment on above: Performed By: #### C BC #### [facility] [place] [address] [place] [address] Neutropenia % DOCUMENT CONTROL ASSOCIATE Normal [facility] Comment on above: Performed By: #### C BC #### [facility] [place] [address] [place] [address] Neutrophils (Bld) [#/Vol] DOCUMENT CONTROL ASSOCIATE Normal [facility] Comment on above: Performed By: #### C BC #### [facility] [place] [address] [place] [address] Neutrophils Abs. # 4.2 K/uL Normal 2.2-4.8 [facility] Comment on above: Performed By: #### C BC #### [facility] [place] [address] [place] [address] Neutrophils/100 WBC (Bld) 69.3 % High 43.0-65.0 [facility] Comment on above: Performed By: #### C BC #### [facility] [place] [address] [place] [address] Neutrophils/100 WBC (Bld) DOCUMENT CONTROL ASSOCIATE Normal [facility] Comment on above: Performed By: #### C BC #### [facility] [place] [address] [place] [address] Nucleated RBC (Bld) [#/Vol] 0.0 10*3/uL Normal [facility] Comment on above: Performed By: #### C BC #### [facility] [place] [address] [place] [address] Nucleated RBC/100 WBC (Bld) [Ratio] 0.0 % Normal [facility] Comment on above: Performed By: #### C BC #### [facility] [place] [address] [place] [address] Pancytopenia DOCUMENT CONTROL ASSOCIATE Normal [facility] Comment on above: Performed By: #### C BC #### [facility] [place] [address] [place] [address] Platelet mean volume (Bld) [Entitic vol] 7.6 fL Normal 7.4-10.4 [facility] Comment on above: Performed By: #### C BC #### [facility] [place] [address] [place] [address] Platelets (Bld) [#/Vol] 217 10*3/uL Normal 148-402 [facility] Comment on above: Performed By: #### C BC #### [facility] [place] [address] [place] [address] Poikilocytosis DOCUMENT CONTROL ASSOCIATE Normal [facility] Comment on above: Performed By: #### C BC #### [facility] [place] [address] [place] [address] RBC (Bld) [#/Vol] 3.63 10*6/uL Low 3.83-5.19 [facility] Comment on above: Performed By: #### C BC #### [facility] [place] [address] [facility] [place] [address] Small Platelets DOCUMENT CONTROL ASSOCIATE Normal [facility] Comment on above: Performed By: #### C BC #### [facility] [place] [address] [place] [address] Thrombocytopenia DOCUMENT CONTROL ASSOCIATE Normal [facility] Comment on above: Performed By: #### C BC #### [facility] [place] [address] [place] [address] Thrombocytopenia. DOCUMENT CONTROL ASSOCIATE Normal [facility] Comment on above: Performed By: #### C BC #### [facility] [place] [address] [place] [address] Thrombocytosis DOCUMENT CONTROL ASSOCIATE Normal [facility] [facility] Comment on above: Performed By: #### C BC #### [facility] [place] [address] [facility] [place] [address] WBC (Bld) [#/Vol] 6.1 10*3/uL Normal 3.6-10.8 [facility] Comment on above: Performed By: #### C BC #### [facility] [place] [address] [place] [address] CHEST APon 11-18-2019 CHEST AP EXAMINATION: ONE XRAY VIEW OF THE CHEST 11/18/2019 4:31 pm COMPARISON: None. HISTORY: ORDERING SYSTEM PROVIDED HISTORY: palpitations FINDINGS: The lungs are without acute focal process. There is no effusion or pneumothorax. The cardiomediastinal silhouette is without acute process. The osseous structures are without acute process. IMPRESSION: No acute process. Normal [facility] Comprehensive Metabolic Pane roseanne 11-18-2019 Albumin [Mass/Vol] 3.3 g/dL Low 3.4-5.0 [facility] Comment on above: Performed By: #### C MP #### [facility] [place] [address] [place] [address] Albumin/Globulin [Mass ratio] 0.9 {ratio} Low 1.1-2.5 [facility] Comment on above: Performed By: #### C MP #### [facility] [place] [address] [place] [address] ALP [Catalytic activity/Vol] 44 U/L Low 54-112 [facility] Comment on above: Performed By: #### C MP #### [facility] [place] [address] [place] [address] ALT [Catalytic activity/Vol] 32 U/L Normal 13-66 [facility] Comment on above: Performed By: #### C MP #### [facility] [place] [address] [place] [address] Anion gap [Moles/Vol] 9.9 mmol/L Normal 8.0-16.0 [facility] Comment on above: Performed By: #### C MP #### [facility] [address] [place] [address] AST [Catalytic activity/Vol] 24 U/L Normal 3-39 [facility] Comment on above: Performed By: #### C MP #### [facility] [address] [facility] [place] [address] Bilirubin Ql (U) 0.69 mg/dL Normal 0.00-0.99 [facility] Comment on above: Performed By: #### C MP #### [facility] [address] [place] [address] Calcium [Mass/Vol] 8.6 mg/dL Normal 8.2-10.0 [facility] Comment on above: Performed By: #### C MP #### [facility] [address] [place] [address] Chloride [Moles/Vol] 106 mmol/L Normal 94-110 [facility] Comment on above: Performed By: #### C MP #### [facility] [address] [place] [address] CO2 [Moles/Vol] 30 mmol/L Normal 21-34 [facility] Comment on above: Performed By: #### C MP #### [facility] [address] [place] [address] Creatinine [Mass/Vol] 0.62 mg/dL Normal 0.51-0.95 [facility] Comment on above: Performed By: #### C MP #### [facility] [address] [place] [address] GFR/1.73 sq M predicted among blacks MDRD (S/P/Bld) [Vol rate/Area] mL/min/{1.73_m2} Normal >60 [facility] Comment on above: Result Comment: Dumper Operator belem Kidney Disease less than 60 mL/min/1.73 m2 Kidney Failure less than 15 mL/min/1.73 m2 Average estimated GFR by age: 20-29 years 116 mL/min/1.73 m2 Performed By: #### C MP #### [facility] [address] [place] [address] GFR/1.73 sq M predicted among non-blacks MDRD (S/P/Bld) [Vol rate/Area] mL/min/{1.73_m2} Normal >60 [facility] Comment on above: Performed By: #### C MP #### [facility] [address] [place] [address] Globulin (S) [Mass/Vol] 3.5 g/dL Normal 1.5-4.5 [facility] Comment on above: Performed By: #### C MP #### [facility] [address] [place] [address] Glucose [Mass/Vol] 90 mg/dL Normal 65-100 [facility] Comment on above: Performed By: #### C MP #### [facility] [place] [address] [place] [address] Potassium [Moles/Vol] 3.9 mmol/L Normal 3.3-5.1 [facility] Comment on above: Performed By: #### C MP #### [facility] [address] [place] [address] Protein [Mass/Vol] 6.8 g/dL Normal 6.1-8.2 [facility] Comment on above: Performed By: #### C MP #### [facility] [address] [place] [address] Sodium [Moles/Vol] 142 mmol/L Normal 132-145 [facility] Comment on above: Performed By: #### C MP #### [facility] [address] [place] [address] Urea nitrogen [Mass/Vol] 8.9 mg/dL Normal 3.2-26.9 [facility] Comment on above: Performed By: #### C MP #### [facility] [address] [place] [address] Urea nitrogen/Creatinine [Mass ratio] 14 mg/mg Normal 6-20 [facility] Comment on above: Performed By: #### C MP #### [facility] [address] [place] [address] Ethanol (Medical)on 11-18-19 20 Ethanol [Mass/Vol] mg/dL Normal 0.0-0.0 [facility] Comment on above: Performed By: #### A LC #### [facility] [address] [place] [address] HCG Quanton 11-18-2019 HCG Quant <1 Normal [facility] Comment on above: Result Comment: Expe cted values for Quantitative HCG Assay: Years Range Male 19-83 0-2 mIU/mL Non- female 22-87 0-6 mIU/mL Maxium level of 5,000 to 200,000 mIU/mL is reached at 10-12wks. Levels decline slowly to 1,000-50,000 during 3rd trimester.wks. Please note reference range change Effective: 06-04-03 Performed By: #### H CGQ #### [facility] [place] [address] [place] [address] Magnesiumon 11-18-2019 Magnesium [Mass/Vol] 1.7 mg/dL Normal 1.3-2.3 [facility] Comment on above: Performed By: #### C BC #### [facility] [address] [place] [address] Phosphoruson 11-18-2019 Phosphate [Mass/Vol] 3.4 mg/dL Normal 2.5-4.9 [facility] Comment on above: Performed By: #### C BC #### [facility] [address] [place] [address] Salic Level W/ doseon 2019 Salicylate <2.8 Normal 2.8-20.0 [facility] Comment on above: Performed By: #### S ALIC #### [facility] [address] [place] [address] Troponin ion 11-18-2019 Troponin I.cardiac [Mass/Vol] ng/mL Normal 0.000-0.056 [facility] Comment on above: Result Comment: myocardial injury. [...] universal definition of MO. The 2012 Third [place] Definition of MO defines a positive troponin [...] specimen. Performed By: #### L TROP #### [facility] [place] [address] [place] [address] UA w/reflex cultureon 2019 Appearance (U) CLEAR Normal Clear [facility] Comment on above: Performed By: #### C BC #### [facility] [place] [address] [place] [address] Bilirubin Ql (U) Negative Normal Negative [facility] Comment on above: Performed By: #### C BC #### [facility] [place] [address] [place] [address] Blood Negative Normal Negative [facility] Comment on above: Performed By: #### C BC #### [facility] [place] [address] [place] [address] Color (U) P. YELLOW Normal Yellow [facility] Comment on above: Performed By: #### C BC #### [facility] [place] [address] [place] [address] Glucose [Mass/Vol] NORMAL Normal Negative [facility] Comment on above: Performed By: #### C BC #### [facility] [place] [address] [place] [address] Ketones Ql (U) Negative Normal Negative [facility] Comment on above: Performed By: #### C BC #### [facility] [place] [address] [place] [address] Leukocytes Esterase TRACE Abnormal Negative [facility] Comment on above: Performed By: #### C BC #### [facility] [place] [address] [place] [address] Nitrite Ql (U) Negative Normal Negative [facility] Comment on above: Performed By: #### C BC #### [facility] [place] [address] [place] [address] pH (U) 8 [pH] Normal [facility] Comment on above: Performed By: #### C BC #### [facility] [place] [address] [place] [address] Protein [Mass/Vol] Negative Normal Negative [facility] Comment on above: Performed By: #### C BC #### [facility] [place] [address] [place] [address] Specific gravity (U) [Rel density] 1.010 Low 1.015-1.025 [facility] Comment on above: Performed By: #### C BC #### [facility] [place] [address] [place] [address] Order Comment: Drug Screen Comment No Performed By: #### D RUGR #### [facility] [place] [address] [place] [address] Urobilinogen Qn (U) NORMAL Normal Normal-1.0 [facility] Comment on above: Performed By: #### C BC #### [facility] [place] [address] [place] [address] Urine Drug Screeningon 11-17 Amphetamines Ql (U) Negative Normal [facility] Comment on above: Order Comment: Drug Screen Comment No Result Comment: cuto ff 1000 ng/mL Performed By: #### D RUGR #### [facility] [place] [address] [place] [address] Barbiturates Negative Normal [facility] Comment on above: Order Comment: Drug Screen Comment No Result Comment: cuto ff 200 ng/mL Performed By: #### D RUGR #### [facility] [place] [address] [place] [address] Benzodiazepines Ql (U) Negative Normal [facility] Comment on above: Order Comment: Drug Screen Comment No Result Comment: cuto ff 200 ng/mL Performed By: #### D RUGR #### [facility] [place] [address] [place] [address] Cocaine Ql (U) Negative [facility] Comment on above: Order Comment: Drug Screen Comment No Result Comment: cuto ff 300 ng/mL Performed By: #### D RUGR #### [facility] [place] [address] [place] [address] Opiates Ql (U) Negative [facility] Comment on above: Order Comment: Drug Screen Comment No Result Comment: cuto ff 300 ng/mL Performed By: #### D RUGR #### [facility] [place] [address] [place] [address] pH (Bld) 8.0 Normal 5.0-8.0 [facility] Comment on above: Order Comment: Drug Screen Comment No Performed By: #### D RUGR #### [facility] [place] [address] [place] [address] Phencyclidine Ql (U) Negative Normal [facility] Comment on above: Order Comment: Drug Screen Comment No Result Comment: cuto ff 25 ng/mL Performed By: #### D RUGR #### [facility] [place] [address] [place] [address] THC Negative [facility] Comment on above: Order Comment: Drug Screen Comment No Result Comment: cuto ff 50 ng/mL Performed By: #### D RUGR #### [facility] [address] [place] [address] - - Normal [facility] Comment on above: Order Comment: Drug Screen Comment No Result Comment: . Drug Screen Comment: This assay provides a preliminary unconfirmed analytical test result that may be suitable for the clinical management of patients in certain situations. Some [id number] medications, as well as adulterants, may cause inaccurate results. Screen only testing does not meet the [facility] Forensic Urine Drug Testing Program requirements as a forensic urine drug test for workplace testing. . Performed By: #### D RUGR #### [facility] [address] [place] [address] Urine Microscopicon 11-18-19 20 Bacteria LM.HPF (Urine sed) [#/Area] DOCUMENT CONTROL ASSOCIATE Normal 0 - 1+ [facility] Comment on above: Performed By: #### C BC #### [facility] [address] [place] [address] Casts LM.LPF (Urine sed) [#/Area] DOCUMENT CONTROL ASSOCIATE Normal [facility] Comment on above: Performed By: #### C BC #### [facility] [address] [place] [address] Crystals LM Nom (Urine sed) DOCUMENT CONTROL ASSOCIATE Normal [facility] Comment on above: Performed By: #### C BC #### [facility] [address] [place] [address] Crystals LM Nom (Urine sed) Rare Amorphous Normal [facility] Comment on above: Performed By: #### C BC #### [facility] [address] [place] [address] Epithelial cells LM.HPF (Urine sed) [#/Area] 0-2 Normal 0 - 6 [facility] Comment on above: Performed By: #### C BC #### [facility] [place] [address] [place] [address] Mucus Ql (Urine sed) DOCUMENT CONTROL ASSOCIATE Normal [facility] Comment on above: Performed By: #### C BC #### [facility] [place] [address] [place] [address] RBC (U) [#/Vol] None Seen Normal 0 - 2 [facility] Comment on above: Performed By: #### C BC #### [facility] [place] [address] [place] [address] Trichomonas DOCUMENT CONTROL ASSOCIATE Normal [facility] Comment on above: Performed By: #### C BC #### [facility] [place] [address] [place] [address] WBC (Bld) [#/Vol] 0-2 Normal 0 - 6 [facility] Comment on above: Performed By: #### C BC #### [facility] [place] [address] [place] [address] Yeast LM Ql (Urine sed) DOCUMENT CONTROL ASSOCIATE Normal [facility] Comment on above: Performed By: #### C BC #### [facility] [place] [address] [place] [address] Other DOCUMENT CONTROL ASSOCIATE Normal [facility] Comment on above: Performed By: #### C BC #### [facility] [place] [address] [place] [address] CBC w/Auto Differentialon Anemia DOCUMENT CONTROL ASSOCIATE Normal [facility] Comment on above: Performed By: #### C BC #### [facility] [place] [address] [place] [address] Anisocytosis Ql (Bld) DOCUMENT CONTROL ASSOCIATE Normal [facility] Comment on above: Performed By: #### C BC #### [facility] [place] [address] [place] [address] Basophils Abs. # 0.0 K/uL Normal 0.0-0.1 [facility] Comment on above: Performed By: #### C BC #### [facility] [place] [address] [facility] [place] [address] Basophils/100 WBC (Bld) 0.5 % Normal 0.2-1.0 [facility] Comment on above: Performed By: #### C BC #### [facility] [place] [address] [facility] [place] [address] Basophils/100 WBC (Bld) DOCUMENT CONTROL ASSOCIATE Normal [facility] Comment on above: Performed By: #### C BC #### [facility] [place] [address] [place] [address] Bosophillia # DOCUMENT CONTROL ASSOCIATE [facility] Comment on above: Performed By: #### C BC #### [facility] [place] [address] [place] [address] Eosinophils (Bld) [#/Vol] DOCUMENT CONTROL ASSOCIATE Normal [facility] Comment on above: Performed By: #### C BC #### [facility] [place] [address] [place] [address] Eosinophils (Bld) [#/Vol] 0.0 10*3/uL Normal 0.0-0.2 [facility] Comment on above: Performed By: #### C BC #### [facility] [place] [address] [facility] [place] [address] Eosinophils/100 WBC (Bld) DOCUMENT CONTROL ASSOCIATE [facility] Comment on above: Performed By: #### C BC #### [facility] [place] [address] [place] [address] Eosinophils/100 WBC (Bld) 0.3 % Low 0.9-2.9 [facility] Comment on above: Performed By: #### C BC #### [facility] [place] [address] [place] [address] Erythocytosis DOCUMENT CONTROL ASSOCIATE Normal [facility] Comment on above: Performed By: #### C BC #### [facility] [place] [address] [facility] [place] [address] Erythrocyte distribution width (RBC) [Ratio] 14.7 % High 11.5-14.5 [facility] Comment on above: Performed By: #### C BC #### [facility] [place] [address] [facility] [place] [address] Hematocrit (Bld) [Volume fraction] 37.5 % Normal 33.4-46.0 [facility] Comment on above: Performed By: #### C BC #### [facility] [place] [address] [facility] [place] [address] Hemoglobin (Bld) [Mass/Vol] 12.9 g/dL Normal 11.1-13.7 [facility] Comment on above: Performed By: #### C BC #### [facility] [place] [address] [facility] [place] [address] Hypochromia DOCUMENT CONTROL ASSOCIATE Normal [facility] Comment on above: Performed By: #### C BC #### [facility] [place] [address] [facility] [place] [address] Large Platelets DOCUMENT CONTROL ASSOCIATE Normal [facility] Comment on above: Performed By: #### C BC #### [facility] [place] [address] [facility] [place] [address] Leukocytosis DOCUMENT CONTROL ASSOCIATE Normal [facility] Comment on above: Performed By: #### C BC #### [facility] [place] [address] [place] [address] Leukopenia DOCUMENT CONTROL ASSOCIATE Normal [facility] Comment on above: Performed By: #### C BC #### [facility] [place] [address] [place] [address] Lymphocytes (Bld) [#/Vol] 1.4 10*3/uL Normal 1.3-2.9 [facility] Comment on above: Performed By: #### C BC #### [facility] [place] [address] [place] [address] Lymphocytes (Bld) [#/Vol] DOCUMENT CONTROL ASSOCIATE Normal [facility] Comment on above: Performed By: #### C BC #### [facility] [place] [address] [place] [address] Lymphocytes/100 WBC (Bld) DOCUMENT CONTROL ASSOCIATE Normal [facility] Comment on above: Performed By: #### C BC #### [facility] [place] [address] [place] [address] Lymphocytes/100 WBC (Bld) 27.6 % Normal 17.0-45.5 [facility] Comment on above: Performed By: #### C BC #### [facility] [place] [address] [place] [address] Lymphocytosis # DOCUMENT CONTROL ASSOCIATE Normal [facility] Comment on above: Performed By: #### C BC #### [facility] [place] [address] [place] [address] Lymphocytosis % DOCUMENT CONTROL ASSOCIATE Normal [facility] Comment on above: Performed By: #### C BC #### [facility] [place] [address] [place] [address] Macrocytosis DOCUMENT CONTROL ASSOCIATE Normal [facility] Comment on above: Performed By: #### C BC #### [facility] [place] [address] [place] [address] MCH (RBC) [Entitic mass] 30.8 pg Normal 27.0-31.0 [facility] Comment on above: Performed By: #### C BC #### [facility] [place] [address] [place] [address] MCHC (RBC) [Mass/Vol] 34.3 g/dL Normal 33.0-37.0 [facility] Comment on above: Performed By: #### C BC #### [facility] [address] [place] [address] MCV (RBC) [Entitic vol] 89.8 fL Normal 81.0-99.0 [facility] Comment on above: Performed By: #### C BC #### [facility] [address] [place] [address] Microcytosis DOCUMENT CONTROL ASSOCIATE Normal [facility] Comment on above: Performed By: #### C BC #### [facility] [address] [place] [address] Monocytes (Bld) [#/Vol] 0.4 10*3/uL Normal 0.3-0.8 [facility] Comment on above: Performed By: #### C BC #### [facility] [address] [place] [address] Monocytes/100 WBC (Bld) 7.4 % Normal 5.5-11.7 [facility] Comment on above: Performed By: #### C BC #### [facility] [address] [place] [address] Monocytosis % DOCUMENT CONTROL ASSOCIATE Normal [facility] Comment on above: Performed By: #### C BC #### [facility] [place] [address] [place] [address] Neutropenia # DOCUMENT CONTROL ASSOCIATE Normal [facility] Comment on above: Performed By: #### C BC #### [facility] [place] [address] [place] [address] Neutropenia % DOCUMENT CONTROL ASSOCIATE Normal [facility] Comment on above: Performed By: #### C BC #### [facility] [place] [address] [place] [address] Neutrophils (Bld) [#/Vol] DOCUMENT CONTROL ASSOCIATE Normal [facility] Comment on above: Performed By: #### C BC #### [facility] [place] [address] [place] [address] Neutrophils Abs. # 3.3 K/uL Normal 2.2-4.8 [facility] Comment on above: Performed By: #### C BC #### [facility] [place] [address] [place] [address] Neutrophils/100 WBC (Bld) DOCUMENT CONTROL ASSOCIATE Normal [facility] Comment on above: Performed By: #### C BC #### [facility] [place] [address] [place] [address] Neutrophils/100 WBC (Bld) 64.2 % Normal 43.0-65.0 [facility] Comment on above: Performed By: #### C BC #### [facility] [place] [address] [place] [address] Nucleated RBC (Bld) [#/Vol] 0.0 10*3/uL Normal [facility] Comment on above: Performed By: #### C BC #### [facility] [place] [address] [place] [address] Nucleated RBC/100 WBC (Bld) [Ratio] 0.0 % Normal [facility] Comment on above: Performed By: #### C BC #### [facility] [place] [address] [place] [address] Pancytopenia DOCUMENT CONTROL ASSOCIATE Normal [facility] Comment on above: Performed By: #### C BC #### [facility] [place] [address] [facility] [place] [address] Platelet mean volume (Bld) [Entitic vol] 7.6 fL Normal 7.4-10.4 [facility] Comment on above: Performed By: #### C BC #### [facility] [place] [address] [place] [address] Platelets (Bld) [#/Vol] 230 10*3/uL Normal 148-402 [facility] Comment on above: Performed By: #### C BC #### [facility] [place] [address] [place] [address] Poikilocytosis DOCUMENT CONTROL ASSOCIATE Normal [facility] Comment on above: Performed By: #### C BC #### [facility] [place] [address] [place] [address] RBC (Bld) [#/Vol] 4.18 10*6/uL Normal 3.83-5.19 [facility] Comment on above: Performed By: #### C BC #### [facility] [place] [address] [place] [address] Small Platelets DOCUMENT CONTROL ASSOCIATE Normal [facility] Comment on above: Performed By: #### C BC #### [facility] [place] [address] [facility] [place] [address] Thrombocytopenia DOCUMENT CONTROL ASSOCIATE Normal [facility] Comment on above: Performed By: #### C BC #### [facility] [place] [address] [place] [address] Thrombocytopenia. DOCUMENT CONTROL ASSOCIATE Normal [facility] Comment on above: Performed By: #### C BC #### [facility] [address] [place] [address] Thrombocytosis DOCUMENT CONTROL ASSOCIATE Normal [facility] Comment on above: Performed By: #### C BC #### [facility] [address] [place] [address] WBC (Bld) [#/Vol] 5.1 10*3/uL Normal 3.6-10.8 [facility] Comment on above: Performed By: #### C BC #### [facility] [address] [place] [address] Comprehensive Metabolic Pane roseanne 11-09-2019 Albumin [Mass/Vol] 4.1 g/dL Normal 3.4-5.0 [facility] Comment on above: Performed By: #### C MP #### [facility] [address] [place] [address] Albumin/Globulin [Mass ratio] 1.1 {ratio} Normal 1.1-2.5 [facility] Comment on above: Performed By: #### C MP #### [facility] [address] [place] [address] ALP [Catalytic activity/Vol] 52 U/L Low 54-112 [facility] Comment on above: Performed By: #### C MP #### [facility] [address] [place] [address] ALT [Catalytic activity/Vol] 17 U/L Normal 13-66 [facility] Comment on above: Performed By: #### C MP #### [facility] [address] [place] [address] Anion gap [Moles/Vol] 11.8 mmol/L Normal 8.0-16.0 [facility] Comment on above: Performed By: #### C MP #### [facility] [place] [address] [facility] [place] [address] AST [Catalytic activity/Vol] 15 U/L Normal 3-39 [facility] Comment on above: Performed By: #### C MP #### [facility] [address] [place] [address] Bilirubin Ql (U) 0.83 mg/dL Normal 0.00-0.99 [facility] Comment on above: Performed By: #### C MP #### [facility] [address] [place] [address] Calcium [Mass/Vol] 8.7 mg/dL Normal 8.2-10.0 [facility] Comment on above: Performed By: #### C MP #### [facility] [address] [place] [address] Chloride [Moles/Vol] 107 mmol/L Normal 94-110 [facility] Comment on above: Performed By: #### C MP #### [facility] [address] [place] [address] CO2 [Moles/Vol] 28 mmol/L Normal 21-34 [facility] Comment on above: Performed By: #### C MP #### [facility] [address] [facility] [place] [address] Creatinine [Mass/Vol] 0.80 mg/dL Normal 0.51-0.95 [facility] Comment on above: Performed By: #### C MP #### [facility] [address] [place] [address] GFR/1.73 sq M predicted among blacks MDRD (S/P/Bld) [Vol rate/Area] mL/min/{1.73_m2} Normal >60 [facility] Comment on above: Result Comment: Dumper Operator belem Kidney Disease less than 60 mL/min/1.73 m2 Kidney Failure less than 15 mL/min/1.73 m2 Average estimated GFR by age: 20-29 years 116 mL/min/1.73 m2 Performed By: #### C MP #### [employer] [facility] [address] [place] [address] GFR/1.73 sq M predicted among non-blacks MDRD (S/P/Bld) [Vol rate/Area] mL/min/{1.73_m2} Normal >60 [facility] Comment on above: Performed By: #### C MP #### [employer] [facility] [address] [place] [address] Globulin (S) [Mass/Vol] 3.6 g/dL Normal 1.5-4.5 [facility] Comment on above: Performed By: #### C MP #### [employer] [facility] [address] [place] [address] Glucose [Mass/Vol] 91 mg/dL Normal 65-100 [facility] Comment on above: Performed By: #### C MP #### [employer] [facility] [address] [place] [address] Potassium [Moles/Vol] 3.8 mmol/L Normal 3.3-5.1 [facility] Comment on above: Performed By: #### C MP #### [employer] [facility] [address] [place] [address] Protein [Mass/Vol] 7.7 g/dL Normal 6.1-8.2 [facility] Comment on above: Performed By: #### C MP #### [employer] [facility] [address] [place] [address] Sodium [Moles/Vol] 143 mmol/L Normal 132-145 [facility] Comment on above: Performed By: #### C MP #### [facility] [address] [place] [address] Urea nitrogen [Mass/Vol] 11.8 mg/dL Normal 3.2-26.9 [facility] Comment on above: Performed By: #### C MP #### [facility] [address] [place] [address] Urea nitrogen/Creatinine [Mass ratio] 15 mg/mg Normal 6-20 [facility] Comment on above: Performed By: #### C MP #### [facility] [address] [place] [address] [facility] 10-05-2019 [facility] Chlamy trachomatis, KATELYNN = Negative Neiss gonorrhoeae, KATELYNN = Negative Performed at: =[address] [id number] Auto Claims Adjuster: Luz Marina Sherman MD, Phone: [phone] Source Chlamy/GC Amp = urine Normal [facility] Comment on above: Performed By: #### M IC2 #### [facility] [address] [place] [address] CBCon 09-14-2019 Erythrocyte distribution width (RBC) [Ratio] 12.8 % 11.5 - 14.5 % [facility] Hematocrit (Bld) [Volume fraction] 41.8 % 33.6 - 46.8 % [facility] Hemoglobin (Bld) [Mass/Vol] 13.7 g/dL 11.7 - 15.8 g/dL [facility] MCH (RBC) [Entitic mass] 29.7 pg 27.5 - 32.3 pg [facility] MCHC (RBC) [Mass/Vol] 32.8 g/dL 30.7 - 35.5 g/dl [facility] MCV (RBC) [Entitic vol] 90.7 fL 80.2 - 99 fL [facility] Platelets (Bld) [#/Vol] 245.0 10*3/uL [facility] RBC (Bld) [#/Vol] 4.61 10*6/uL [facility] WBC LM Ql (Sput) 5.2 [facility] Comprehensive metabolic pane l aka [employer] 09-14-2019 Albumin [Mass/Vol] 4.5 g/dL 3.5 - 5 g/dL [facility] Alk Phos 40 U/L 24 - 126 U/L [facility] ALT [Catalytic activity/Vol] 15 U/L 9 - 52 U/L [facility] AST [Catalytic activity/Vol] 17 U/L 3 - 47 U/L [facility] Bilirubin [Mass/Vol] 0.6 mg/dL 0.2 - 1 .6 mg/dL [facility] Calcium [Mass/Vol] 10.0 mg/dL 8.4 - 10. 4 mg/dL [facility] Chloride [Moles/Vol] 107 mmol/L 96 - 10 9 mmol/L [facility] CO2 [Moles/Vol] 22 mmol/L 22 - 30 mmol/L [facility] Comprehensive metabolic 2000 panel 0.86 mg/dL 0.52 - 1.04 mg/dL [facility] Glucose [Mass/Vol] 121 mg/dL High 65 - 100 mg/dL [facility] Interpretation and review of laboratory results Abnormal [facility] Potassium [Moles/Vol] 3.8 mmol/L 3.6 - 5.1 mmol/L [facility] Protein [Mass/Vol] 7.8 g/dL 6.3 - 8.2 g/dL [facility] Sodium [Moles/Vol] 142 mmol/L 135 - 147 mmol/L [facility] Urea nitrogen [Mass/Vol] 11 mg/dL 8 - 20 mg/dL [facility] GLOMERULAR FILTRATION RATEon 09-14-2019 GFR/1.73 sq M.predicted MDRD (S/P/Bld) [Vol rate/Area] mL/min/{1.73_m2} [facility] Comment on above: To estimate the [...] 08-19 HAV IgM Qn (S) Nonreactive Nonreactive [facility] HCV Ab Qn (S) Nonreactive Nonreactive [facility] Hep B Core-M AB Nonreactive Nonreactive [facility] Hep B Surf AG Nonreactive Nonreactive [facility] HIV-1 and HIV-2 antibodieson 09-14-2019 HIV 1+2 Ab Ql (S) Nonreactive Nonreactive [facility] Comment on above: Nonreactive No detectable HIV-1p24 Antigen or HIV-1/HIV2 antibodies Syphilis Treponema Antibodyo n 09-14-2019 Syphilis Treponema Antibody Nonreactive Nonreactive [facility] Vital Signs Date Time Vital Sign Value Performing Clinician Facility 12-11-2024 09:30-0400 Body temperature 98.2 [degF] Dr. Odin Abraham MD Work Phone: [facility] 12-11-2024 09:30-0400 Diastolic blood pressure 69 mm[Hg] Dr. Odin Abraham MD Work Phone: [facility] 12-11-2024 09:30-0400 Heart rate 94 /min Dr. Odin Abraham MD Work Phone: [facility] 12-11-2024 09:30-0400 Respiratory rate 16 /min Dr. Odin Abraham MD Work Phone: [facility] 12-11-2024 09:30-0400 SaO2% (BldA) [Mass fraction] 96 % Dr. Odin Abraham MD Work Phone: [facility] 12-11-2024 09:30-0400 Systolic blood pressure 117 mm[Hg] Dr. Odin Abraham MD Work Phone: [facility] 12-08-2024 15:23-0400 Body height [address] Odin Abraham MD Work Phone: [facility] 12-08-2024 15:23-0400 Body weight 67.[address] Odin Abraham MD Work Phone: [facility] 12-08-2024 00:30-0400 Body mass index (BMI) [Ratio] 21.2 kg/m2 Dr. Odin Abraham MD Work Phone: [facility] 12-07-2024 23:00-0400 Respiratory rate 20 /min Dr. Odin Abraham MD Work Phone: [facility] 12-07-2024 23:00-0400 SaO2% (BldA) [Mass fraction] 100 % Dr. Odin Abraham MD Work Phone: [facility] 12-07-2024 22:00-0400 Diastolic blood pressure 77 mm[Hg] Dr. Odin Abraham MD Work Phone: [facility] 12-07-2024 22:00-0400 Systolic blood pressure 122 mm[Hg] Dr. Odin Abraham MD Work Phone: [facility] 12-07-2024 21:27-0400 Body temperature 97.9 [degF] Dr. Odin Abraham MD Work Phone: [facility] 12-07-2024 21:27-0400 Heart rate 88 /min Dr. Odin Abraham MD Work Phone: [facility] 12-07-2024 19:27-0400 Body height 177.[address] Odin Abraham MD Work Phone: [facility] 12-07-2024 19:27-0400 Body mass index (BMI) [Ratio] 21.4 kg/m2 Dr. Odin Abraham MD Work Phone: [facility] 12-07-2024 19:27-0400 Body weight 67.[address] Odin Abraham MD Work Phone: [facility] 10-26-2024 18:48-0400 Body mass index (BMI) [Ratio] 23.15 kg/m2 Catie Sandra SUPERVISOR PRODUCTION.CONTRACT DESIGN AGENT Work Phone: [facility] 10-26-2024 18:48-0400 Body temperature 97.59 [degF] Catie Sandra SUPERVISOR PRODUCTION.CONTRACT DESIGN AGENT Work Phone: [facility] 10-26-2024 18:48-0400 Body weight 70.6 kg Catie Sandra SUPERVISOR PRODUCTION.CONTRACT DESIGN AGENT Work Phone: [facility] 10-26-2024 18:48-0400 Diastolic blood pressure 82 mm[Hg] Catie Sandra SUPERVISOR PRODUCTION.CONTRACT DESIGN AGENT Work Phone: [facility] 10-26-2024 18:48-0400 Heart rate 101 /min Catie Sandra SUPERVISOR PRODUCTION.CONTRACT DESIGN AGENT Work Phone: [facility] 10-26-2024 18:48-0400 Respiratory rate 18 /min Catie Sandra SUPERVISOR PRODUCTION.CONTRACT DESIGN AGENT Work Phone: [facility] 10-26-2024 18:48-0400 SaO2% (BldA) [Mass fraction] 99 % Catie Sandra SUPERVISOR PRODUCTION.CONTRACT DESIGN AGENT Work Phone: [facility] 10-26-2024 18:48-0400 Systolic blood pressure 132 mm[Hg] Catie Sandra SUPERVISOR PRODUCTION.CONTRACT DESIGN AGENT Work Phone: [facility] 04-14-2024 17:00-0500 Body mass index (BMI) [Ratio] 27.48 kg/m2 Tucker Claus SUPERVISOR PRODUCTION.CONTRACT DESIGN AGENT Work Phone: [facility] 04-14-2024 17:00-0500 Body temperature 98.1 [degF] Tucker Claus SUPERVISOR PRODUCTION.CONTRACT DESIGN AGENT Work Phone: [facility] 04-14-2024 17:00-0500 Body weight 83.8 kg Tuckerazul Devlin SUPERVISOR PRODUCTION.CONTRACT DESIGN AGENT Work Phone: [facility] 04-14-2024 17:00-0500 Diastolic blood pressure 84 mm[Hg] Tucker Claus SUPERVISOR PRODUCTION.CONTRACT DESIGN AGENT Work Phone: [facility] 04-14-2024 17:00-0500 Heart rate 96 /min Tucker Claus SUPERVISOR PRODUCTION.CONTRACT DESIGN AGENT Work Phone: [facility] 04-14-2024 17:00-0500 Respiratory rate 18 /min Tucker Devlin SUPERVISOR PRODUCTION.CONTRACT DESIGN AGENT Work Phone: [facility] 04-14-2024 17:00-0500 SaO2% (BldA) [Mass fraction] 100 % Tucker Claus SUPERVISOR PRODUCTION.CONTRACT DESIGN AGENT Work Phone: [facility] 04-14-2024 17:00-0500 Systolic blood pressure 129 mm[Hg] Tucker Claus SUPERVISOR PRODUCTION.CONTRACT DESIGN AGENT Work Phone: [facility] 10-07-2023 16:31-0400 Body mass index (BMI) [Ratio] 26.79 kg/m2 Tucker Claus SUPERVISOR PRODUCTION.CONTRACT DESIGN AGENT Work Phone: [facility] 10-07-2023 16:31-0400 Body temperature 99 [degF] Tucker Claus SUPERVISOR PRODUCTION.CONTRACT DESIGN AGENT Work Phone: [facility] 10-07-2023 16:31-0400 Body weight 81.7 kg Tucker Devlin SUPERVISOR PRODUCTION.CONTRACT DESIGN AGENT Work Phone: [facility] 10-07-2023 16:31-0400 Diastolic blood pressure 80 mm[Hg] Tucker Claus SUPERVISOR PRODUCTION.CONTRACT DESIGN AGENT Work Phone: [facility] 10-07-2023 16:31-0400 Heart rate 98 /min Tucker Claus SUPERVISOR PRODUCTION.CONTRACT DESIGN AGENT Work Phone: [facility] 10-07-2023 16:31-0400 Respiratory rate 18 /min Tucker Claus SUPERVISOR PRODUCTION.CONTRACT DESIGN AGENT Work Phone: [facility] 10-07-2023 16:31-0400 SaO2% (BldA) [Mass fraction] 99 % Tucker Claus SUPERVISOR PRODUCTION.CONTRACT DESIGN AGENT Work Phone: [facility] 10-07-2023 16:31-0400 Systolic blood pressure 122 mm[Hg] Tucker Claus SUPERVISOR PRODUCTION.CONTRACT DESIGN AGENT Work Phone: [facility] 08-07-2023 17:29-0400 Body temperature 98.2 [degF] Vicki Praisler-Wood SUPERVISOR PRODUCTION.CONTRACT DESIGN AGENT Work Phone: [facility] 08-07-2023 17:29-0400 Body weight 82.8 kg Vicki Praisler-Wood SUPERVISOR PRODUCTION.CONTRACT DESIGN AGENT Work Phone: [facility] 08-07-2023 17:29-0400 Diastolic blood pressure 82 mm[Hg] Vicki Praisler-Wood SUPERVISOR PRODUCTION.CONTRACT DESIGN AGENT Work Phone: [facility] 08-07-2023 17:29-0400 Heart rate 105 /min Vicki Praisler-Wood SUPERVISOR PRODUCTION.CONTRACT DESIGN AGENT Work Phone: [facility] 08-07-2023 17:29-0400 Respiratory rate 20 /min Vicki Praisler-Wood SUPERVISOR PRODUCTION.CONTRACT DESIGN AGENT Work Phone: [facility] 08-07-2023 17:29-0400 SaO2% (BldA) [Mass fraction] 98 % Vicki Praisler-Wood SUPERVISOR PRODUCTION.CONTRACT DESIGN AGENT Work Phone: [facility] 08-07-2023 17:29-0400 Systolic blood pressure 134 mm[Hg] Vicki Praisler-Wood SUPERVISOR PRODUCTION.CONTRACT DESIGN AGENT Work Phone: [facility] 05-05-2023 15:21-0500 Body temperature 99.19 [degF] Krislyn Aberegg PA Work Phone: [facility] 05-05-2023 15:21-0500 Body weight 78.47 kg Krislyn Aberegg PA Work Phone: [facility] 05-05-2023 15:21-0500 Diastolic blood pressure 81 mm[Hg] Krislyn Aberegg PA Work Phone: [facility] 05-05-2023 15:21-0500 Heart rate 107 /min Krislyn Aberegg PA Work Phone: [facility] 05-05-2023 15:21-0500 Respiratory rate 20 /min Krislyn Aberegg PA Work Phone: [facility] 05-05-2023 15:21-0500 SaO2% (BldA) [Mass fraction] 100 % Krislyn Aberegg PA Work Phone: [facility] 05-05-2023 15:21-0500 Systolic blood pressure 134 mm[Hg] Krislyn Aberegg PA Work Phone: [facility] 03-26-2023 17:45-0500 Body temperature 98.8 [degF] Barrie Pendlebury SUPERVISOR PRODUCTION.CONTRACT DESIGN AGENT Work Phone: [facility] 03-26-2023 17:45-0500 Body weight 77.47 kg Barrie Juan SUPERVISOR PRODUCTION.CONTRACT DESIGN AGENT Work Phone: [facility] 03-26-2023 17:45-0500 Diastolic blood pressure 84 mm[Hg] Barrie Pendlebury SUPERVISOR PRODUCTION.CONTRACT DESIGN AGENT Work Phone: [facility] 03-26-2023 17:45-0500 Heart rate 108 /min Barrie Pendlebury SUPERVISOR PRODUCTION.CONTRACT DESIGN AGENT Work Phone: [facility] 03-26-2023 17:45-0500 Respiratory rate 18 /min Barrie Pendlebury SUPERVISOR PRODUCTION.CONTRACT DESIGN AGENT Work Phone: [facility] 03-26-2023 17:45-0500 SaO2% (BldA) [Mass fraction] 96 % Barrie Martinez SUPERVISOR PRODUCTION.CONTRACT DESIGN AGENT Work Phone: [facility] 03-26-2023 17:45-0500 Systolic blood pressure 138 mm[Hg] Barrie Martinez SUPERVISOR PRODUCTION.CONTRACT DESIGN AGENT Work Phone: [facility] 01-08-2023 10:26-0400 Body weight 76.57 kg Chrissie De Jesus MD Work Phone: [facility] 01-08-2023 10:26-0400 Diastolic blood pressure 76 mm[Hg] Chrissie De Jesus MD Work Phone: [facility] 01-08-2023 10:26-0400 Systolic blood pressure 120 mm[Hg] Chrissie De Jesus MD Work Phone: [facility] 12-31-2022 13:52-0400 Body weight 78.2 kg Terri Bradgate SUPERVISOR PRODUCTION.CONTRACT DESIGN AGENT Work Phone: [facility] 12-31-2022 13:52-0400 Diastolic blood pressure 76 mm[Hg] Terri Kasie SUPERVISOR PRODUCTION.CONTRACT DESIGN AGENT Work Phone: [facility] 12-31-2022 13:52-0400 Systolic blood pressure 136 mm[Hg] Terri Bradgate SUPERVISOR PRODUCTION.CONTRACT DESIGN AGENT Work Phone: [facility] 05-28-2022 08:35-0500 Body mass index (BMI) [Ratio] 25.2 kg/m2 Dr. Odin Abraham Work Phone: [facility] 05-28-2022 08:35-0500 Body temperature 98 [degF] Dr. Odin Abraham Work Phone: [facility] 05-28-2022 08:35-0500 Body weight 79.[address] Odin Abraham Work Phone: [facility] 05-28-2022 08:35-0500 Diastolic blood pressure 76 mm[Hg] Dr. Odin Abraham Work Phone: [facility] 05-28-2022 08:35-0500 Heart rate 76 /min Dr. Odin Abraham Work Phone: [facility] 05-28-2022 08:35-0500 Respiratory rate 18 /min Dr. Odin Abraham Work Phone: [facility] 05-28-2022 08:35-0500 SaO2% (BldA) [Mass fraction] 96 % Dr. Odin Abraham Work Phone: [facility] 05-28-2022 08:35-0500 Systolic blood pressure 122 mm[Hg] Dr. Odin Abraham Work Phone: [facility] Encounters Encounter Date Encounter Type Care Provider Facility Start: 12-31-2024 End: 12-31-[address] Odin Abraham MD Work Phone: -[facility] Start: 12-31-2024 End: 12-31-2024 Patient encounter procedure [facility] DOCUMENT CONTROL ASSOCIATE-C -[facility] Start: 12-31-2024 End: 12-31-2024 ambulatory [facility] Facility:[facility] Start: 12-11-2024 Non-patient / Non-visit Dr. Bettie Mclean MD [facility] Work Phone: Start: 12-10-2024 Non-patient / Non-visit Dr. Bettie Mclean MD [facility] Work Phone: Start: 12-09-2024 Non-patient / Non-visit Dr. Bettie Mclean MD [facility] Work Phone: Start: 12-08-2024 Non-patient / Non-visit Dr. Bettie Mclean MD [facility] Work Phone: Start: 12-07-2024 End: 12-11-2024 Evaluation and management of inpatient Dr. Ezio Mclean MD -[facility] Work Phone: Start: 12-07-2024 Non-patient / Non-visit Dr. Yrn houston MD -[facility] Work Phone: Start: 12-07-2024 ambulatory Ezio Mclean Fac ility:[facility] Start: 12-07-2024 Evaluation and management of inpatient Dr. Yrn Yepez MD -[facility] Work Phone: Start: 10-26-2024 End: 10-26-2024 Patient encounter procedure Catie Flores SUPERVISOR PRODUCTION.CONTRACT DESIGN AGENT Work Phone: [facility] Comment on above: Redness of skin ([place] mary ann Dx) Start: 10-26-2024 End: 10-26-2024 [facility] Start: 04-18-2024 End: 04-18-2024 ambulatory [facility] Start: 04-14-2024 End: 04-14-2024 ambulatory ODIN LEIGH Facility:[facility] Start: 04-14-2024 End: 04-14-2024 Patient encounter procedure Tucker Devlin SUPERVISOR PRODUCTION.CONTRACT DESIGN AGENT Work Phone: [facility] Comment on above: Sore throat (Primary Dx) Start: 03-17-2024 End: 03-17-2024 ambulatory Odin [place] Facility:[facility] Start: 10-07-2023 End: 10-07-2023 Patient encounter procedure Tucker Devlin SUPERVISOR PRODUCTION.CONTRACT DESIGN AGENT Work Phone: [facility] Comment on above: Sore throat (Primary Dx) Start: 08-12-2023 End: 08-12-2023 ambulatory [facility] Start: 08-07-2023 End: 08-07-2023 Patient encounter procedure Vicki Michael SUPERVISOR PRODUCTION.CONTRACT DESIGN AGENT Work Phone: [facility] Comment on above: Sore throat (Primary Dx) Start: 05-05-2023 End: 05-05-2023 Patient encounter procedure Antonette MATUTE Work Phone: [facility] Comment on above: URI, acute (Primary Dx); Bacterial sinusitis Start: 03-27-2023 Telephone encounter Delmis solis PA-C Work Phone: [facility] Comment on above: Results Start: 03-26-2023 End: 03-26-2023 Office outpatient visit 15 minutes Barrie Juan MIRANDA.CONTRACT DESIGN AGENT Work Phone: [facility] Comment on above: Viral illness (Prima ry Dx) Start: 01-08-2023 End: 01-08-2023 Patient encounter procedure Chrissie De Jesus MD Work Phone: OB/Gynecology Comment on above: Encounter for IUD in sertion (Primary Dx); Screen for STD (sexually transmitted disease) Start: 12-31-2022 End: 12-31-2022 Patient encounter procedure Terri Ferro APRN.CONTRACT DESIGN AGENT Work Phone: [facility] Comment on above: Encounter for survei llance of contraceptive pills (Primary Dx); Encounter for IUD insertion Start: 08-09-2022 End: 08-09-[address] Odin Abraham Work Phone: [facility] Work Phone: Start: 08-09-2022 End: 08-09-[address] Odin Abraham Work Phone: [facility] Start: 05-28-2022 End: 05-28-[address] Odin Abraham Work Phone: [facility] Start: 01-16-2021 End: 01-16-2021 Patient encounter status Cheyenne Bautista APRN CONTRACT DESIGN AGENT Work Phone: [facility] Start: 01-16-2021 End: 01-16-2021 Subsequent hospital visit by physician Cheyenne Bautista APRN CONTRACT DESIGN AGENT Work Phone: [facility] Comment on above: Encounter for gyneco logical examination without abnormal finding; Screen for STD (sexually transmitted disease); High risk heterosexual behavior Start: 01-04-2020 End: 01-04-2020 Subsequent hospital visit by physician Virginia Vidal Work Phone: [facility] Start: 09-14-2019 End: 09-14-2019 Subsequent hospital visit by physician Estuardo Anna Work Phone: [facility] Comment on above: Arrived Procedures Date [...] Ordered: [id number] NuSwab Vaginitis Pl us (VG+)Test(s) 936794- Atopobium vaginae; 140550- BVAB 2;890499- Megasphaera 1was developed and its performance characteristicsdetermined by [facility]. It has not been cleared or approvedby the Food and Drug Administration.Test(s) 910273-Dfgznok albicans, KATELYNN; 316853-Zkkgvlx glabrata, NAAwas developed and its performance characteristicsdetermined by [facility]. It has not been cleared or approvedby [...] =G Reference Range: NegativePerformed at: = - Lab[address] [id number] Director: Luz Marina Sherman MD, Phone: [phone] at: [address] [id number] Director: Steve Salas PhD, Phone: [phone] Start: 12-07-2024 Methadone measurement, urine Dr. Odin Abraham MD Work Phone: Start: 12-07-[address] Garrick Abraham MD Work Phone: Start: 04-14-2024 STREP A MOLECULAR (POC) Delmis Sparks PA-C Work Phone: Start: 10-07-2023 STREP A MOLECULAR (POC) Tucker Devlin SUPERVISOR PRODUCTION.CONTRACT DESIGN AGENT Work Phone: Start: 08-07-2023 STREP A MOLECULAR (POC) [facility] Provider Start: 03-26-2023 COVID & INFLUENZA A/B & RSV NAAT, ROUTINE Barrie Martinez APRN.CONTRACT DESIGN AGENT Work Phone: Start: 11-07-2023 Iadna respiratry probe & rev trnscr 3-5 targets Barrie Martinez SUPERVISOR PRODUCTION.CONTRACT DESIGN AGENT Work Phone: Start: 03-26-2023 Sars-cov-2 detection by dna/rna Barrie Martinez SUPERVISOR PRODUCTION.CONTRACT DESIGN AGENT Work Phone: Start: 01-08-2023 Urine test visual color cmprsn duy De Jesus MD Work Phone: Start: 01-16-2021 Adult depression screening assessment Cheyenne Bautista APRN CONTRACT DESIGN AGENT Work Phone: Start: 01-04-2020 Adult depression screening [...] Author Start: 09-29-2027 HPV TESTING HPV TESTING [facility] Start: 09-29-2027 PAP TESTING PAP TESTING [facility] Start: 09-29-2027 Screening for malign ant neoplasm of cervix [facility] Start: 01-18-2025 Influenza vaccination Influenz a Vaccine (Season Ended) [facility] Start: 01-03-2025 Screening for malign ant neoplasm of cervix PAP SMEAR [facility] Start: 12-11-2024 Patient discharge [facility] Start: 12-09-2024 Assessment using assessment scale [facility] Start: 12-09-2024 [facility] Start: 12-08-2024 Notification of physician [facility] Start: 12-08-2024 Vital signs measurements [facility] Start: 12-08-2024 Ambulation without limitation [facility] Start: 12-08-2024 Assessment of risk o f venous thromboembolism [facility] Start: 12-08-2024 Insertion of cathete r into peripheral vein [facility] Start: 12-08-2024 Providing care accor ding to standard [facility] Start: 12-08-2024 Referral to service [facility] Start: 12-08-2024 [facility] Start: 12-08-2024 Consultation [facility] Start: 12-07-2024 Verification routine [facility] Start: 12-07-2024 Admission procedure [facility] Start: 12-07-2024 Hospital admission, emergency, from emergency room, medical nature [facility] Start: 01-19-2024 Covid-19 Vaccine ( season) Covid-19 Vaccine ( season) [facility] Start: 01-19-[address] [facility] Start: 09-29-2023 Screening for malign ant neoplasm of cervix Cervical Cancer Screening [facility] Start: 05-20-2023 Behavioral Health Screening Behavioral Health Screening [facility] Start: 05-20-2023 Depression Assessment Depression Ass essment [facility] Start: 01-18-2023 Covid-19 Vaccine ( season) Covid-19 Vaccine ( season) [facility] Start: 01-18-[address] [facility] Start: 01-03-2023 Human papilloma viru s screening PAP SMEAR [facility] Start: 05-28-2022 Patient referral [facility] Work Phone: Start: 05-20-2022 DEPRESSION ASSESSMENT DEPRESSION ASS ESSMENT [facility] Start: 01-29-2022 End: 01-29-2022 Patient encounter procedure 01/29/2022 Office Visit Obstetrics and Gynecology Cheyenne Bautista, RUBEN CONTRACT DESIGN AGENT [address] [place] [address] [facility] Start: 01-17-2022 ANNUAL WELLNESS VISIT ANNUAL WELLNES S VISIT [facility] Start: 01-16-2022 Depression screening using PHQ-9 (Patient Health Questionnaire 9) score DEPRESSION SCREENING [facility] Start: 04-19-2021 End: 04-19-2021 Patient encounter procedure 04/19/2021 Office Visit Family Medicine Roxie Byrne PA-C [address] [place] [address] [facility] [address] [facility] Start: 02-08-2021 End: 02-08-2021 Telemedicine consultation with patient 02/08/2021 Telemedicine Behavioral Health Richie Monk PA [address] [place] [address] [facility] Start: 01-30-2021 End: 01-30-2021 Clinical Support 01/30/2021 Clinical Support Obstetrics and Gynecology Cheyenne Bautista APRN CONTRACT DESIGN AGENT [address] [place] [address] [facility] Start: 01-18-2021 Influenza vaccinatio n given INFLUENZA VACCINE (#1) [facility] Start: 01-09-2021 End: 01-09-2021 Office Visit 01/09/2021 Office Visit Obstetrics and Gynecology Virginia Vidal APRN CONTRACT DESIGN AGENT [address] [place] [address] [phone] [facility] Start: 01-03-2021 Adult depression screening assessment DEPRESSION SCREENING [facility] Start: 11-25-2020 ANNUAL WELLNESS VISIT ANNUAL WELLNES S VISIT [facility] Start: 01-26-2020 End: 01-26-2020 Office Visit 01/26/2020 Office Visit Family Medicine Roxie Byrne PA-C [address] [place] [address] [phone] [facility] [address] [facility] Start: 01-19-2020 Influenza vaccinatio n given INFLUENZA VACCINE (#1) [facility] Start: 01-18-2019 Influenza vaccinatio n given INFLUENZA VACCINE (#1) [facility] Start: 2011 Human papilloma viru s screening PAP SMEAR [facility] Start: 2011 Tetanus, diphtheria and acellular pertussis vaccination TDAP/TD ADULT [facility] Start: 2009 Hepatitis B Vaccine (1 of 3 - 19+ 3-dose series) Hepatitis B Vaccine (1 of 3 - 19+ 3-dose series) [facility] Start: 2009 Urine microalbumin profile [facility] Start: 02-16-2008 ANNUAL WELLNESS VISIT ANNUAL WELLNES S VISIT [facility] Start: 02-16-2008 Depression Screening Depression Scre ening [facility] Start: 02-16-2008 HEPATITIS C SCREENING HEPATITIS C [facility] Start: 02-16-2008 Hepatitis C screening Hepatitis C [facility] Start: 02-16-2008 HIV SCREENING HIV SCREENING [facility] Start: 02-16-2008 HIV screening HIV Screening [facility] Start: 2002 Adult depression screening assessment DEPRESSION SCREENING [facility] Start: 2001 Diphtheria + pertuss is + tetanus vaccine (product) DTAP/TDAP/TD VACCINE (1 - Tdap) [facility] Start: 1990 COVID-19 VACCINE (#1) COVID-19 VACCI NE (#1) [facility] Start: 1990 HEPATITIS B (1 of 3 - 3-dose series) HEPATITIS B (1 of 3 - 3-dose series) [facility] Start: 1990 Hepatitis B Vaccine (1 of 3 - 3-dose series) Hepatitis B Vaccine (1 of 3 - 3-dose series) [facility] Chlamydia trachomatis+Neisseria gonorrhoeae DNA [Presence] in Unspecified specimen by KATELYNN with probe detection GONORRHEA/CHLAMYDIA NAAT Lab Routine Screen for STD (sexually transmitted disease) 01/08/2023 10:58 AM EDT [facility] Work Phone: Chlamydia trachomatis+Neisseria gonorrhoeae rRNA [Presence] in Cervix by Probe GC & CHLAMYDIA AMPLIFIED PROBE Microbiology Routine 09/14/2019 10:44 AM EDT [employer] End: 01-17-2021 Chlamydia trachomatis+Neisseria gonorrhoeae rRNA [Presence] in Cervix by Probe [employer] Comment on above: 1 Occurrences starti ng 01/17/2021 until 01/17/2021 COVID & INFLUENZA A/ B & RSV NAAT, ROUTINE COVID & INFLUENZA A/B & RSV NAAT, ROUTINE Microbiology Routine URI, acute 05/05/2023 3:31 PM EST [facility] Work Phone: End: 01-17-2021 Human papilloma virus DNA [Presence] in Unspecified specimen by Probe with amplification [employer] Work Phone: Comment on above: 1 Occurrences starti ng 01/17/2021 until 01/17/2021 Insertion intrauteri ne device iud INSERT INTRAUTERINE DEVICE Procedures Routine Encounter for IUD insertion Ordered: 12/31/2022 [facility] Work Phone: Comment on above: Ordered: 12/31/2022 Insertion intrauteri ne device iud INSERT INTRAUTERINE DEVICE Procedures Routine Encounter for IUD insertion Ordered: 01/08/2023 [facility] Work Phone: Comment on above: Ordered: 01/08/2023 End: 01-17-2021 Microscopic observation [Identifier] in Cervix by Cyto stain [employer] Comment on above: 1 Occurrences starti ng 01/17/2021 until 01/17/2021 Patient referral [facility] Work Phone: Tobacco use cessatio n education [facility] End: 01-17-2021 Trichomonas Amplified Probe [employer] Comment on above: 1 Occurrences starti ng 01/17/2021 until 01/17/2021 TRICHOMONAS VAGINALI S NAAT TRICHOMONAS VAGINALIS NAAT Lab Routine Screen for STD (sexually transmitted disease) 01/08/2023 10:58 AM EDT [facility] Work Phone: [facility] Payers Date Payer Category Payer Self-pay [id number] 2023 Unknown [id number] 2022 Medicaid [id number] 1990 Unknown [id number] 1990 Unknown [id number] Medicaid [facility] xxxxxxxxxxxx Effective for all dates [phone] [address] [place] [address] Medicaid xxxxxxxxxxxx [id number] Medicaid [id number] Unknown [id number] Unknown [id number] Unknown [id number] Unknown [id number] Unknown [id number] Unknown [id number] Unknown [id number] Unknown [id number] Social History Date Type Detail Facility Start: 07-04-2017 End: 09-28-2022 Tobacco smoking status NHIS Never smoker [facility] Work Phone: Start: 07-04-2017 Alcohol intake Current drinke r of alcohol (finding) [facility] Start: 1990 Sex Assigned At Not on file [facility] Start: 01-04-2020 End: 12-09-2024 Tobacco smoking status NHIS Current every day smoker [facility] End: 11-18-2019 History of tobacco use [facility] Start: 01-04-2020 End: 09-28-2022 Tobacco use and exposure Never used [facility] Start: 01-04-2020 End: 10-26-2024 Alcohol intake Ex-drinker (finding) [facility] Exposure to SARS-CoV -2 (event) Not sure [facility] Start: 01-11-2021 History SDOH Social Connections Membership 2 [facility] Start: 01-11-2021 History SDOH Financial 5 [facility] Start: 01-11-2021 History SDOH Food Worry 1 [facility] Start: 06-18-2022 Tobacco smoking stat us WAIS Unknown if ever smoked [facility] Start: 1990 Sex Assigned At Female W [facility] Start: 09-28-2022 End: 12-31-2022 History of Social function [facility] Start: 09-28-2022 End: 12-31-2022 Tobacco use panel [facility] National Score (1-100), lower number is lower risk 50 [facility] Start: 09-28-2022 Education 13 [facility] Start: 09-28-2022 Tobacco Comment Pt vapes [facility] Start: 09-28-2022 Alcohol Comment sober 15 mos [facility] Start: 05-05-2023 Gender identity Identifies as female gender (finding) [facility] NEGATED: Highlighted rowStart: NINF History of tobacco use Passive smoker [facility] Work Phone: NEGATED: Highlighted row Not [facility] Goals Date Patient Goal Desired Activity /State Functional Status Date Assessment Result Facility 12-11-2024 Functional status Bathroom Privilege [facility] Work Phone: Mental Status Date Assessment Result Facility 12-10-2024 Cognitive function Voice/Name [facility] Work Phone: Clinical Notes 12-31-2022 to 12-11-2024 Note Date & Type Note Facility 12-11-2024 Discharge summary Note Date/Time December 11, 2024 10:00am [facility] Medical Records Department [address] [place] [address] Discharge Summary 12/11/24 0957 MR#: [id number] Acct: [id number] Name: CHRISTA COLBERT Rep #:[id number] : 1990 34 From: Ezio green MD PCP: Dr. Odin Abraham MD Status:ADM IN Location: [facility] UR220-8 Providers Date of Admission: 12/07/24 Primary Care [...] Rehab Unit/Facility Charges/Coding Visit Charges Inpatient E&M: 20587 Disch Hosp >30min 12/11/24 1000 <Electronically signed by Ezio Mclean MD> Cosigner Signature (if applicable): CC: Dr. Odin Abraham MD; Dr. Ezio Mclean MD~ Signed [facility] Work Phone: 1(997) 432-461407-25-2025 Consult note Author Rashmi Whitt [facility] Note Date/Time December 11, 2024 9:50 am [facility] Medical Records Department [address] [place] [address] Counseling Note - Pharmacy 12/11/24 0949 MR#: [id number] Acct: [id number] Name: CHRISTA COLBERT Rep #:[id number] : 1990 34 From: Rashmi Whitt PCP: Dr. Odin Abraham MD Status:ADM IN Location: [place] [address] Pharmacy [place] Med Reconciliation Pharmacy Service has performed discharge [...] Signature (if applicable): Date CC: ~ Signed [facility] Work Phone: 1(617) 834-930407-25-2025 Discharge summary Author Ezio Mclean [facility] Note Date/Time December 11, 2024 8:24 am [facility] Medical Records Department [address] [place] [address] Instructions for Home/Discharge Instructions 12/11/24 08 MR#: [id number] Acct: [id number] Name: CHRISTA COLBERT Rep #:[id number] : 1990 34 From: Ezio green MD [...] taking recently Referrals / Follow Up: Odin Abrahma MD [Primary Care Provider] - Within 1 Month Disposition Disposition (needs filled in before D/C Order can be placed): Inpatient Rehab Unit/Facility 12/11/24 0824<Electronically signed by Ezio Mclean MD>Ezio Mclean MD CC: Dr. Odin Abraham MD; Dr. Yrn Yepez MD ~ Signed [facility] Work Phone: 1(282) 886-394307-25-2025 Discharge summary [facility] Medical Records Department [address] [place] [address] Discharge Summary 12/11/24 0957 MR#: [id number] Acct: [id number] Name: CHRISTA COLBERT Rep #:[id number] : 1990 34 From: Ezio green MD PCP: Dr. Odin Abraham MD Status:ADM IN [id number] Date of Admission: 12/07/24 Primary Care [...] Rehab Unit/Facility Charges/Coding Visit Charges Inpatient E&M: 23573 Disch Hosp >30min 12/11/24 1000 Cosigner Signature (if applicable): CC: Dr. Odin Abraham MD; Dr. Ezio Mclean MD~ Signed [facility]07-25-2025 [facility] Medical Records Department [address] [place] [address] Discharge Summary 12/11/24 0957 MR#: [id number] Acct: [id number] Name: CHRISTA COLBERT Rep #: [id number] : 1990 34 From: Ezio Mclean MD PCP: Dr. Odin Abraham MD Status:ADM IN Location: [facility] IX667-6 Providers Date of Admission: 12/07/24 Primary Care [...] DAILY PRN Rx Instruction (more content not included)...[facility] 12-11-2024 Consult note [facility] Medical Records Department [address] [place] [address] Counseling Note - Pharmacy 12/11/24 0949 MR#: [id number] Acct: [id number] Name: CHRISTA COLBERT Rep #:[id number] : 1990 34 From: Rashmi Whitt PCP: Dr. Odin Abraham MD Status:ADM IN Location: [facility] LU661-7 Pharmacy [place] Med Reconciliation Pharmacy Service has performed discharge [...] Signature (if applicable): Date CC: ~ Signed [facility]07-25-2025 Discharge summary [facility] Medical Records Department [address] [place] [address] Instructions for Home/Discharge Instructions 12/11/24 0821 MR#: [id number] Acct: [id number] Name: CHRISTA COLBERT Rep #:[id number] : 1990 34 From: Ezio green MD [...] MD; Dr. Yrn Yepez MD ~ Signed [facility]07-24-2025 Progress note Author Ezio Mclean [facility] Note Date/Time December 10, 2024 8:51 am [facility] Medical Records Department [address] [place] [address] Progress Note - Hospitalist 12/10/24 0836 MR#: [id number] Acct: [id number] Name: CHRISTA COLBERT Rep #:[id number] : 1990 34 From: Ezio green MD PCP: Dr. Odin Abraham MD Status:ADM IN Location: [place] [address] Subjective Subjective Cina score of 10, will [...] DVT: Ambulation Charges/Coding Visit Charges Inpatient E&M: 35061 Subs Hosp L2 12/10/24 0851 <Electronically signed by Ezio Mclean MD> Cosigner Signature (if applicable): CC: ~ Signed [facility] Work Phone: 1(481) 298-419707-24-2025 Progress note [facility] Medical Records Department [address] [place] [address] Progress Note - Hospitalist 12/10/24 0836 MR#: [id number] Acct: [id number] Name: CHRISTA COLBERT Rep #:[id number] : 1990 34 From: Ezio green MD PCP: Dr. Odin Abraham MD Status:ADM IN Location: [facility] DK014-8 Subjective Subjective Cina score of 10, will [...] DVT: Ambulation Charges/Coding Visit Charges Inpatient E&M: 97814 Subs Hosp L2 12/10/24 0851 Cosigner Signature (if applicable): CC: ~ Signed [facility]07-23-2025 Progress note Author Ezio Mclean [facility] Note Date/Time December 09, 2024 9:07 am [facility] Medical Records Department [address] [place] [address] Progress Note - Hospitalist 12/09/24 0900 MR#: [id number] Acct: [id number] Name: CHRISTA COLBERT Rep #:[id number] : 1990 34 From: Ezio green MD PCP: Dr. Odin Abraham MD Status:ADM IN Location: [facility] NK867-3 Subjective Subjective Diaphoretic and shaky today CIWA [...] DVT: Ambulation Charges/Coding Visit Charges Inpatient E&M: 85851 Subs Hosp L2 12/09/24 0907 <Electronically signed by Ezio Mclean MD> Cosigner Signature (if applicable): CC: ~ Signed [facility] Work Phone: 1(774) 830-430607-23-2025 Progress note [facility] Medical Records Department [address] [place] [address] Progress Note - Hospitalist 12/09/24 09 MR#: [id number] Acct: [id number] Name: CHRISTA COLBERT Rep #:[id number] : 1990 34 From: Ezio green MD PCP: Dr. Odin Abraham MD Status:ADM IN Location: [place] [address] Subjective Subjective Diaphoretic and shaky today CIWA [...] DVT: Ambulation Charges/Coding Visit Charges Inpatient E&M: 06084 Subs Hosp L2 12/09/24 0907 Cosigner Signature (if applicable): CC: ~ Signed [facility]07-22-2025 Progress note Author Ezio Mclean [facility] Note Date/Time December 08, 2024 1:21 pm [facility] Medical Records Department [address] [place] [address] Progress Note - Hospitalist 12/08/24 1309 MR#: [id number] Acct: [id number] Name: CHRISTA COLBERT Rep #:[id number] : 1990 34 From: Ezio green MD PCP: Dr. Odin Abraham MD Status:ADM IN Location: [facility] DX198-4 Subjective Subjective Resting comfortably, no issues overnight. [...] % (Auto) 54.5, Lymph % (Auto) 38.0, Coffey% (Auto) 6.9, Eos % (Auto) 0.0, Baso [...] DVT: Ambulation Charges/Coding Visit Charges Inpatient E&M: 33572 Subs Hosp L2 12/08/24 1321 <Electronically signed by Ezio Mclean MD> Cosigner Signature (if applicable): CC: ~ Signed [facility] Work Phone: 1(136) 177-887507-22-2025 Progress note [facility] Medical Records Department [address] [place] [address] Progress Note - Hospitalist 12/08/24 1309 MR#: [id number] Acct: [id number] Name: CHRISTA COLBERT Rep #:[id number] : 1990 34 From: Ezio green MD PCP: Dr. Odin Abraham MD Status:ADM IN Location: [facility] DQ120-2 Subjective Subjective Resting comfortably, no issues overnight. [...] % (Auto) 54.5, Lymph % (Auto) 38.0, Coffey% (Auto) 6.9, Eos % (Auto) 0.0, Baso [...] DVT: Ambulation Charges/Coding Visit Charges Inpatient E&M: 00427 Subs Hosp L2 12/08/24 1321 Cosigner Signature (if applicable): CC: ~ Signed [facility]07-22-2025 Evaluation note* Diagnosis Onset Date Resolution Status Admit Date Anxiety acute December 07 11:23pm Depression acute December 07 11:23pm Methamphetamine abuse acute Nov 11:23pm Opiate abuse, continuous acute December 07, 2024 11:23pm [facility] Work Phone: 1(463) [phone] Evaluation note* Diagnosis Onset Date Resolution Status Admit Date 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 Odin Abraham MD Status:ADM IN Location: [facility] LM996-8 HPI - General General Date of Admission: [...] breath or fevers or chillsat present time [facility] Medical History HPV in female Back [...] Surgical History History of removal of cyst [place] teeth extracted Social History household members: other details: sober living current occupational status: employed current occupation: [employer] Smoking Status: Current every day smoker tobacco [...] % (Auto) 54.5, Lymph % (Auto) 38.0, Coffey% (Auto) 6.9, Eos % (Auto) 0.0, Baso [...] present time Charges/Coding Visit Charges Inpatient E&M: 51904 Init Hosp L2 12/07/24 2323 <Electronically signed by Yrn Yepez MD> Cosigner Signature (if applicable): CC: Dr. Odin Abraham MD; Dr. Yrn Yepez MD~ Signed [facility] Work Phone: 1(529) 756-248707-22-2025 Discharge summary Author Jaden Roberson-Mary Jo [facility] Note Date/Time December 07, 2024 11:0 9pm [facility] Medical Records Department [address] [place] [address] Emergency Department Summary 12/07/24 MR#: [id number] Acct: [id number] Name: CHRISTA COLBERT Rep #:[id number] : 1990 34 From: Jaden mcgowanett DO [...] intact Psych: Cooperative, appropriate mood and affect [facility] Medical History HPV in female Back problem [...] Surgical History History of removal of cyst [place] teeth extracted Social History household members: other details: sober living current occupational status: employed current occupation: [employer] Smoking Status: Current every day smoker tobacco [...] % (Auto) 54.5 Lymph % (Auto) 38.0 Coffey % (Auto) 6.9 Eos % (Auto) 0.0 [...] MD [Primary Care Provider] - Print Language: Greenlandic What to do if you have Problems For any increased pain, shortness of breath, bleeding, nausea or vomiting, chestpain, or any unexpected problems, contact your Primary Care Provider. Call [facility] ([phone]) or report to the closest Emergency Room. Call 911 if necessary. 12/07/249 <Electronically signed by Jaden Yepez DO> Cosigner Signature (if applicable): CC: Dr. Odin Abraham MD ~ Signed [facility] Work Phone: 1(420) 176-323907-21-2025 Evaluation note* Diagnosis Onset Date Resolution Status Admit Date Anxiety acute December 07 9:23pm Depression acute December 07 9:23pm Methamphetamine abuse acute Nov 9:23pm Opiate abuse, continuous acute December 07, 2024 9:23pm [facility] Work Phone: 1(597) 435-793307-21-2025 History and physical note [facility] Medical Records Department [address] [place] [address] History & Physical Exam 12/07/24 2317 MR#: [id number] Acct: [id number] Name: CHRISTA COLBERT Rep #:[id number] : 1990 34 From: Yrn Yepez MD PCP: Dr. Odin Abraham MD Status:ADM IN Location: [facility] LB498-7 HPI - General General Date of Admission: [...] breath or fevers or chillsat present time [facility] Medical History HPV in female Back [...] Surgical History History of removal of cyst [place] teeth extracted Social History household members: other details: sober living current occupational status: employed current occupation: [employer] Smoking Status: Current every day smoker tobacco [...] % (Auto) 54.5, Lymph % (Auto) 38.0, Coffey% (Auto) 6.9, Eos % (Auto) 0.0, Baso [...] present time Charges/Coding Visit Charges Inpatient E&M: 33777 Init Hosp L2 12/07/24 2323 Cosigner Signature (if applicable): CC: Dr. Odin Abraham MD; Dr. Yrn Yepez MD~ Signed [facility]07-21-2025 [facility] Medical Records Department [address] [place] [address] History Physical Exam 12/07/24 2317 MR#: [id number] Acct: [id number] Name: CHRISTA COLBERT Rep #: [id number] : 1990 34 From: Yrn Yepez MD PCP: Dr. 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 Call [facility] ([phone]) or report tothe closest Emergency Room. Call 911 if necessary. 12/07/24 4678 Cosigner Signature (if applicable): CC: Dr. Odin Abraham MD ~ Signed [facility]07-21-2025 Discharge summary Author Jaden Yepez [facility] Note Date/Time December 07, 2024 11:0 9pm [facility] Medical Records Department [address] [place] [address] Emergency Department Summary 12/07/24 MR#: [id number] Acct: [id number] Name: CHRISTA COLBERT Rep #:[id number] : 1990 34 From: Jaden Nicholas ggett [...] intact Psych: Cooperative, appropriate mood and affect 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 Call [facility] ([phone]) or report to the closest Emergency Room. Call 911 if necessary. 12/07/242308 <Electronically signed by Jaden Yepez DO> Cosigner Signature (if applicable): CC: Dr. Odin Abraham MD ~ Signed [facility] Work Phone: [phone]) 636-820806-09-2025 Instructions* Patient Instructions* Catie Flores APRN.CNP - 10/26/2024 7:31 PM EDT -Clean with soap and water -Tylenol or Ibuprofen for discomfort -Observe for worsening - redness, warmth, foul odor, drainage or increase in discomfort or fever - to ER if occurs documented in this encounterPrem[facility]-2025 NoteHNO ID: [id number] Author: CATIE FLORES APRN.CNP Service: ? Author Type: Nurse Practitioner Type: Progress Notes Filed: 10/26/2024 19:31 Note Text: Subjective The history is provided by the patient. No pediatric speech language pathologist was used. MARY LOU Colbert is a [...] have confirmed and edited as necessary, the [facility] Review of Systems Constitutional: Negative for chills [...] detail warranting prompt ER evaluation. [facility] History of Present illness Narrative* Catie Flores APRN.LON - 10/26/2024 7:11 PM EDT Images from the original note were not included. Subjective The history is provided by the patient. No pediatric speech language pathologist was used. HPI Christa Colbert is a [...] have confirmed and edited as necessary, the [facility] Review of Systems Constitutional: Negative for chills [...] evaluation. Catie Flores APRN.LON documented in this encounterPremier Health [facility]11-26-2024 NoteHNO ID: [id number] Author: TUCKER DEVLIN APRN.LON Service: ? Author [...] PROPIONATE 50 MCG/ACTUATION NASAL SPRAY,SUSPENSION Tucker Devlin APRN.[place] 13677-26-2024 History of Present illness Narrative* Tucker DevlinRUBEN.LON [...] SPRAY,SUSPENSION Tucker Devlin APRN.LON documented in this encounterPremier Health [facility]05-20-2024 History of Present illness Narrative* Tucker Devlin [...] TABLET Tucker Devlin APRN.CNP documented in this encounterPremier Health [facility]03-20-2024 Instructions* Patient Instructions* Leticia-Vicki Goode APRN.CNP - [...] Discussed expected course of illness Vicki Michael APRN.CONTRACT DESIGN AGENT SORE THROAT INSTRUCTIONS SORE THROAT OVERVIEW - [...] or mouth and then touchesanother person directly (hcjm-wb-xkzl contact) or indirectly (omof-th-pswrkm, such as doorknob, telephone, toys). It is [...] every four months on our web site ([email or web address]). Information below was obtained from Up to date Last literature review version 19.2: September 2010 This topic last updated: January 04, 2010 documented in this encounterPremier Health [facility]03-20-2024 History of Present illness Narrative* Vicki Michael APRN.CONTRACT DESIGN AGENT - 08/07/2023 5:35 PM EDT Subjective Sore [...] Discussed expected course of illness Vicki Michael APRN.CONTRACT DESIGN AGENT documented in this encounterPremier Health [facility]12-17-2023 History of Present illness Narrative* Antonette Levy PA - 05/05/2023 3:31 PM EST This note was created using [employer]. Subjective Christa Colbert is a 33 year [...] 15 mos Anxiety and depression Drug dependency ([facility]) has been clean for 15 mos PAST [...] discussed in detail warranting prompt ER evaluation. JJUU Jaeger documented in this encounterPremier Health [facility]11-08-2023 Miscellaneous Notes* Telephone Encounter - Laura Floyd LPN - 03/27/2023 8:32 AM EST Patient notified.Laura Floyd LPN * Telephone Encounter - Delmis Sparks PA-C - 03/27/2023 8:28 AM EST Please let patient know that their COVID-19, influenza, and RSV testing is negative. documented in this encounterPremier Health [facility]11-07-2023 Instructions* Patient Instructions* Barrie Martinez APRN.CONTRACT DESIGN AGENT - 03/26/2023 6:00 PM EST How to [...] or concerning to you. documented in this encounterPremier Health [facility]11-07-2023 History of Present illness Narrative* Barrie Martinez [...] of care. This note was generated using [employer] software. It may contain errors in wording, punctuation, or spelling. Barrie Martinez APRN.CONTRACT DESIGN AGENT documented in this encounterPremier Health [facility]08-22-2023 History of Present illness Narrative* Chrissie De Jesus MD - 01/08/2023 10:36 AM EDT N/a * Chrissie De Jesus MD - 01/08/2023 10:17 AM EDT Head Cashier offered: Patient declines. Christa presents today for IUD insertion for contraception. Patient's last menstrual period was 12/23/2022. GC/chlamydia: Collected today test: negative Side effects including irregular bleeding were discussed with the patient. The patient understands that it should be removed in 8 years or sooner if the patient desires a . IUD source: office provided IUD lot #: [id number] Exp date: 03/2025 UNIVERSAL PROTOCOL / SAFETY [...] Chrissie De Jesus MD documented in this encounterPremier Health [facility]08-22-2023 Instructions* Patient Instructions* Jackie Mahmood MA - [...] please contact the office. 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 History LMP: 12/23/2022, Having periods Age at Menarche: Age at First : Age at Menopause: Dry Plasterer History Comments: Sexual Activity: Yes; Male Contraception: [...] Level: 3 - Low [facility]* Diagnosis Encounter for gynecological examination without abnormal finding Routine gynecological examination Screen for STD (sexually transmitted disease) Screening examination for venereal disease High risk heterosexual behavior Problems related to high-risk sexual behavior [facility] [place] [facility]* Diagnosis Onset Date Resolution Status Intravenous drug abuse in remission acute Smoker acute halfway current use of antipsychotic medication noneactive Establishing care with new doctor, encounter for noneactive Screening for cervical cancer noneactive Anxiety and depression nonea ctive Excessive sweating noneactiv e Deviated septum noneactive [facility] Work Phone: Evaluation note* Diagnosis Encounter for surveillance of contraceptive pills- Primary Surveillance of previously prescribed contraceptive pill Encounter for IUD insertion Encounter for insertion of intrauterine contraceptive device [facility] [place] [facility]* Diagnosis Encounter for IUD insertion- Primary Encounter for insertion of intrauterine contraceptive device Screen for STD (sexually transmitted disease) Screening examination for venereal disease documented [facility]* Diagnosis Viral illness- Primary Unspecified viral infection, in conditions classified elsewhere and of unspecified site documented [facility] [place] [facility]* Diagnosis URI, acute- Primary Acute upper respiratory infections of unspecified site Bacterial sinusitis Unspecified sinusitis (chronic) documented in this [facility] [place] [facility]* Diagnosis Sore throat- Primary Acute pharyngitis documented in this [facility] [place] [facility]* Diagnosis Sore throat- Primary Acute pharyngitis [facility] Diagnosis Sore throat- Primary Acute pharyngitis documented in this encounter [facility]* Diagnosis Redness of skin- Primary Unspecified erythematous condition [facility] Author Yrn Yepez [facility] Note Date/Time December 07, 2024 11:2 3pm [facility] Medical Records Department [address] [place] [address] History & Physical Exam 12/07/24 2317 MR#: [id number] Acct: [id number] Name: CHRISTA COLBERT Rep #:[id number] : 1990 34 From: Yrn Yepez MD PCP: Dr. Odin Abraham MD Status:ADM IN Location[place] [facility] [id number] HPI - General General Date of Admission: [...] breath or fevers or chillsat present time [facility] Medical History HPV in female Back [...] Surgical History History of removal of cyst [place] teeth extracted Social History household members: other details: sober living current occupational status: employed current occupation: [employer] Smoking Status: Current every day smoker tobacco [...] % (Auto) 54.5, Lymph % (Auto) 38.0, Coffey% (Auto) 6.9, Eos % (Auto) 0.0, Baso [...] present time Charges/Coding Visit Charges Inpatient E&M: 75536 Init Hosp L2 12/07/24 2323 <Electronically signed by Yrn Yepez MD> Cosigner Signature (if applicable): CC: Dr. Odin Abraham MD; Dr. Yrn Yepez MD~ Signed [facility] Work Phone: [facility] for referral (narrative)* Outpatient Procedure (Routine) - Pending Review Specialty Diagnoses / Procedures Referred By Contac t Referred To Contact [facility] Diagnoses Encounter for IUD insertion Procedures INSERT INTRAUTERINE DEVICE LEVONORGESTREL IU 52MG 5 YR INSERT INTRAUTERINE DEVICE Terri Ferro APRN.CNP [address] [place] [address] [facility] [place] [address] Referral ID Status Reason Start Date Expiration Date Visits Requested Visits Authorized [id number] Pending Review Auto-Generat ed Referral 12/31/2022 12/31/2023 1 1 [facility] for referral (narrative)* Outpatient Procedure (Routine) - Pending Review Specialty Diagnoses / Procedures Referred By Contac t Referred To Contact [facility] Diagnoses Encounter for IUD insertion Procedures INSERT INTRAUTERINE DEVICE LEVONORGESTREL IU 52MG 5 YR INSERT INTRAUTERINE DEVICE Chrissie De Jesus MD [address] [place] [address] [facility] [address] [place] [address] Referral ID Status Reason Start Date Expiration Date Visits Requested Visits Authorized [id number] Pending Review Auto-Generat ed Referral 01/08/2023 01/08/2024 1 1 [facility] for referral (narrative)No reason for referral information availableWOur Lady of [facility] Work Phone: Advance Directives No Advanced Directives Records FoundDocuments on File Type Date Recorded Patient Research Food Technologist Expl anation Advance Directives and Living Will Power of Movie Actor Advance Directive Response Recorded Date/ Time Living Will No June 18 2:47pm Power of Movie Actor No June 18, 2022 2:47pm Advance Directive Response Recorded Date/ Time Do you have a Healthcare Power of Movie Actor? No December 07, 2024 7:40pm Advance Directive Response Recorded Date/ Time Do you have a Healthcare Power of Movie Actor? 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 CARE, PT NE EDS NPP Reason for Visit Intravenous drug abu se in remission Smoker halfway current use of antipsychotic medication Establishing care [...] section and content) DATE CREATED AUTHOR 12/10/2019 [facility] ([place]) DATE CREATED AUTHOR AUTHOR'S ORGANIZ ATION 03/10/2020 [facility] DATE CREATED AUTHOR AUTHOR'S ORGANIZ ATION 04/19/2024 [facility] DATE CREATED AUTHOR AUTHOR'S ORGANIZ ATION 10/27/2024 [facility] DATE CREATED AUTHOR AUTHOR'S ORGANIZ ATION 01/06/2025 [facility] Care Teams (unrecognized sec tion and content) Family Welfare Social Work Professor Relationship Specialty Start Date End Date Roxie Byrne PA-C [address] [place] [address] PCP - General Family Medicine 11/25/19 Team Status: Active Member Role Status Dates Dr. Odin Abraham MD Primary Care Provider Active Team Status: Inactive Member Role Status Dates Dr. Odin Abraham MD Primary Care Pro vider, Attending Provider, Referring Provider Active Family Welfare Social Work Professor Relationship Specialty Start Date End Date Odin Abraham MD [address] [place] [address] PCP - General Internal Medicine 04/14/24 Family Welfare Social Work Professor Relationship Specialty Start Date End Date Odin Abraham MD [address] [place] [address] PCP - General Internal Medicine 04/14/24 Team [...] Star t: December 10, 2024 Dr. Yrn Yepez MD Other Provider [...] or prosecute any alcohol or drug abuse patient.[facility] SouthIn the event this information is protected by the Federal Confidentiality of Alcohol and Drug Abuse Patient Records regulations: The Federal rules restrict any use of the information to criminally investigate or prosecute any alcohol or drug abuse patient.[facility] SouthIn the event this information is protected by the Federal Confidentiality of Alcohol and Drug Abuse Patient Records regulations: The Federal rules restrict any use of the information to criminally investigate or prosecute any alcohol or drug abuse patient.[facility] SouthIn the event this information is protected by the Federal Confidentiality of Alcohol and Drug Abuse Patient Records regulations: The Federal rules restrict any use of the information to criminally investigate or prosecute any alcohol or drug abuse patient.[facility] SouthIn the event this information is protected by the Federal Confidentiality of Alcohol and Drug Abuse Patient Records regulations: The Federal rules restrict any use of the information to criminally investigate or prosecute any alcohol or drug abuse patient.[facility] SouthIn the event this information is protected by the Federal Confidentiality of Alcohol and Drug Abuse Patient Records regulations: The Federal rules restrict any use of the information to criminally investigate or prosecute any alcohol or drug abuse patient.[facility] SouthIn the event this information is protected by the Federal Confidentiality of Alcohol and Drug Abuse Patient Records regulations: The Federal rules restrict any use of the information to criminally investigate or prosecute any alcohol or drug abuse patient.[facility] SouthIn the event this information is protected by the Federal Confidentiality of Alcohol and Drug Abuse Patient Records regulations: The Federal rules restrict any use of the information to criminally investigate or prosecute any alcohol or drug abuse patient.[facility] SouthIn the event this information is protected by the Federal Confidentiality of Alcohol and Drug Abuse Patient Records regulations: The Federal rules restrict any use of the information to criminally investigate or prosecute any alcohol or drug abuse patient.[facility] Reason for Visit (unrecogniz ed section and [...] INTRAUTERINE DEVICE REMOVE INTRAUTERINE DEVICE Terri Ferro, SUPERVISOR PRODUCTION.CONTRACT DESIGN AGENT [address] [place] [address] [facility] [address] [place] [address] Referral ID Status Reason Start Date Expiration Date Visits Requested Visits Authorized [id number] Authorized Auto-Generat ed Referral 01/01/2023 05/19/2023 2 [...] BE BASED ON THE PRIMARY CLINICAL RECORDS. [facility]. provides no warranty or guarantee of the accuracy or completeness of information in this document.
[2025-02-04 22:16] VITALS: BMI 20.4
[2025-02-04 22:27] VITALS: BP 127/80; PULSE 98; RESP 17; TEMP 36.8; O2SAT 98
[2025-02-04 22:40] LABS: HIV Nonreactive (Nonreactive); Syphilis Antibodies Nonreactive (Nonreactive)
[2025-02-04] MEDS: Nicotine (PBKC) 21 MG Patch TD (23:00)
[2025-02-04 23:06] LABS: Hepatitis B Surface Antigen Nonreactive (Nonreactive); Hepatitis C Antibody Nonreactive (Nonreactive)
--- NOTE | 2025-02-04 23:10 | RAD_ITS ---
PROCEDURE: RIBS UNIL 2V NO CXR 02/04/2025 REASON FOR EXAM: ALTERCATION, R SIDED RIB PAIN TECHNIQUE: Procedure Code: [id number] Modality: DX Procedure: RIBS UNIL 2V NO CXR COMPARISON: None. FINDINGS: Acute oblique mildly displaced fracture in the axillary portion of the right 10th rib. Mild overlying soft tissue edema and swelling. Unremarkable remaining ribs. RAD/Ribs Unil 2V No CXR IMPRESSION: Acute oblique mildly displaced fracture in the axillary portion of the right 10 th rib. Mild overlying soft tissue edema and swelling. Reading [facility]
[2025-02-04] MEDS: Senna Tablet 2 TABLET PO (23:36)
[2025-02-05 06:17] VITALS: BP 101/69; PULSE 90; RESP 16; O2SAT 100
--- NOTE | 2025-02-05 07:08 | PCM.PN.HOSP ---
Reason for Visit Chief Complaint: Detoxification opiates requested. Subjective Subjective Patient is a 34-year-old lady with history of polysubstance dependence admitted with withdrawal from fentanyl and benzos Objective Data Objective Data Vital Signs: Vital Signs Temp Pulse Resp BP Pulse Ox O2 Del Method 98.3 F 90 16 101/69 100 Room Air 02/04/25 22:27 02/05/25 06:17 02/05/25 06:17 02/05/25 06:17 02/05/25 06:17 02/05/25 06:17 Oxygen Delivery Method Room Air Weight: 64.6 kg Body Mass Index (BMI) 20.4 Intake & Output: Intake and Output for Last 24 Hours 02/03/25 02/04/25 02/05/25 23:59 23:59 23:59 Intake Total 300 / 300 Balance 300 / 300 Lab / Micro Data 02/04/25 20:25 02/04/25 20:25 Labs: Laboratory Results - last 24 hr 02/04/25 19:17: Urine Opiates Screen NEGATIVE, U Buprenorphine Qual PRESUMPTIVE POSITIVE, Ur Oxycodone Screen NEGATIVE, Urine Methadone Screen NEGATIVE, Urine Fentanyl Screen PRESUMPTIVE POSITIVE, Ur Barbiturates Screen NEGATIVE, Ur Phencyclidine Scrn NEGATIVE, Ur Amphetamines Screen PRESUMPTIVE POSITIVE, U Benzodiazepines Scrn NEGATIVE, Urine Cocaine Screen PRESUMPTIVE POSITIVE, U Cannabinoids Screen NEGATIVE 02/04/25 20:25: WBC 6.0, RBC 4.17 L, Hgb 12.7, Hct 37.5, MCV 89.9, MCH 30.5, MCHC 33.9, RDW Std Deviation 43.8, RDW Coeff of Jose 13.2, Plt Count 264, MPV 9.5, Immature Gran % (Auto) 0.500, Neut % (Auto) 62.3, Lymph % (Auto) 26.1, Briscoe % (Auto) 8.5, Eos % (Auto) 2.3, Baso % (Auto) 0.3, Absolute Neuts (auto) 3.7, Absolute Lymphs (auto) 1.56, Nucleated RBC % 0, Sodium 140, Potassium 3.3, Chloride 104, Carbon Dioxide 25.9, Anion Gap 11, BUN 7, Creatinine 0.72, Estim Creat Clear Calc 113.52, Est GFR (MDRD) Non-Af 113, BUN/Creatinine Ratio 9.1 L, Glucose 103 H, Calcium 8.9, Total Bilirubin 0.60, AST 21, ALT 19, Alkaline Phosphatase 50, Total Protein 6.9, Albumin 4.2, Globulin 2.8, Albumin/Globulin Ratio 1.5, Serum , Qual NEGATIVE, Ethyl Alcohol < 10.1, Syphilis Total Ab Nonreactive, Hep Bs Antigen Nonreactive, Hep Bs Antibody Nonreactive, Hepatitis C Antibody Nonreactive, HIV 1&2 Antibody Nonreactive Radiography Diagnostic Testing: Radiology Impression Ribs X-Ray 02/04/25 23:10 IMPRESSION: Acute oblique mildly displaced fracture in the axillary portion of the right 10th rib. Mild overlying soft tissue edema and swelling. Reading Location: [place] [id number] Physical Exam Narrative GENERAL: Lethargic but arousable HEENT: Atraumatic; normocephalic EYES; Anicteric, Normal Conjunctiva NECK; supple, normal thyroid, RESPIRATORY: Diminished to auscultation CARDIOVASCULAR: Regular S1 S2, GI: soft, normoactive bowel sounds, : No Renal angle tenderness; EXTREMITIES: No edema, no clubbing, MUSCULOSKELETAL: no muscle wasting NEURO: no lateralizing signs. SKIN: No Rash PSYCH; Flat affect Assessment & Plan Assessment/Plan (1) Opiate withdrawal: PLAN: Plan 34-year-old lady with polysubstance dependence presented with withdrawal from both opioid and benzos 1. 1. Acute opioid withdrawal - Patient has been admitted to regular nursing floor, managed buprenorphine taper along with other adjunctive medications for medical stabilization 2. Polysubstance dependence ? Including fentanyl and cocaine meth and benzos. Counseled on cessation 3. Depression with anxiety 4. Tobacco dependence ? Counseled on cessation, offered nicotine patch for tobacco cravings 5. Mild intermittent asthma 6. DVT prophylaxis ? Low risk to encourage early ambulation Time spent in the patient's overall evaluation,decision-making process, review of diagnostic data, adjustment of management, discussion with other providers, nursing nursing and ancillary staff involved in patient's care documentation, 36 Minutes Charges/Coding Visit Charges Inpatient E&M: 52815 Subs Hosp L2
[2025-02-05] MEDS: Nicotine (PBKC) 21 MG Patch TD (09:40)
[2025-02-05] MEDS: buPROPion (XL) 150 MG TABLET.XL PO (09:40)
--- NOTE | 2025-02-05 09:40 | NURSING ---
Pt very drowsy, but awakens easily. pt slurring words, but is understandable. When notifying pt of what meds that was going to be given, the pt stated I usually take Remeron at night. This nurse offered to change time to HS, but Pt then stated that she would take it now. Moments later, Pt asked what the meds were and meds were ID'd. Pt got a little angry when she denied that she said that she would take it now. Pt eventually took meds.
[2025-02-05 15:42] VITALS: BP 108/72; PULSE 91; RESP 16; TEMP 36.6; O2SAT 100
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
[2025-02-05] MEDS: hydrOXYzine PAM 25 MG Capsule 50 MG PO (18:28)
[2025-02-05] MEDS: Senna Tablet 2 TABLET PO (18:28)
[2025-02-05 19:52] VITALS: BP 116/76; PULSE 93; RESP 18; TEMP 36.7; O2SAT 100
[2025-02-06 02:42] VITALS: BP 102/75; PULSE 79; RESP 16; TEMP 37.1; O2SAT 100
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
[2025-02-06 07:36] VITALS: O2SAT 98
[2025-02-06 08:53] VITALS: BP 120/80; PULSE 93; RESP 15; TEMP 36.7; O2SAT 100
[2025-02-06] MEDS: Nicotine (PBKC) 21 MG Patch TD (08:56)
[2025-02-06] MEDS: buPROPion (XL) 150 MG TABLET.XL PO (08:56)
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
[2025-02-06 16:15] VITALS: BP 109/67; PULSE 93; RESP 16; TEMP 36.6; O2SAT 96
[2025-02-06] MEDS: hydrOXYzine PAM 25 MG Capsule 50 MG PO (16:23)
[2025-02-06] MEDS: Senna Tablet 2 TABLET PO (16:23)
[2025-02-06 22:15] VITALS: BP 112/74; PULSE 87; RESP 16; TEMP 36.6; O2SAT 95
[2025-02-07 03:05] VITALS: BP 94/74; PULSE 94; RESP 16; TEMP 36.7; O2SAT 100
[2025-02-07 07:23] VITALS: O2SAT 98
[2025-02-07 08:02] VITALS: BP 103/62; PULSE 94; RESP 12; TEMP 36.4; O2SAT 100
[2025-02-07] MEDS: Nicotine (PBKC) 21 MG Patch TD (08:11)
[2025-02-07] MEDS: buPROPion (XL) 150 MG TABLET.XL PO (08:12)
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
[2025-02-07] MEDS: hydrOXYzine PAM 25 MG Capsule 50 MG PO (13:08)
[2025-02-07 13:13] VITALS: BP 107/60; PULSE 97; RESP 13; TEMP 36.6; O2SAT 97
[2025-02-07 22:15] VITALS: BP 97/59; PULSE 86; RESP 16; TEMP 36.4; O2SAT 98
[2025-02-08 02:15] VITALS: BP 93/53; PULSE 83; RESP 16; TEMP 36.4; O2SAT 97
[2025-02-08 10:00] VITALS: BP 95/58; PULSE 91; RESP 16; TEMP 37.1; O2SAT 98
[2025-02-08] MEDS: Nicotine (PBKC) 21 MG Patch TD (10:05)
[2025-02-08] MEDS: hydrOXYzine PAM 25 MG Capsule 50 MG PO (10:05)
[2025-02-08] MEDS: buPROPion (XL) 150 MG TABLET.XL PO (10:06)
--- NOTE | 2025-02-08 10:49 | NURSING ---
talked with Shanita LINDER navigator then talked with Prabhakar from security aware pt verbalized concern there was no followup regarding a prehospital concern she wanted to report. Aware per Prabhakar that had already talked with her but he would reach out to [facility] to talk with patient.
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
[2025-02-08 13:00] VITALS: BP 110/54; PULSE 96; RESP 16; TEMP 36.7; O2SAT 99
== END 2025-02-08 13:16 | DRG 773 ==
LOC: ED 20:12 → MS3 21:51
PROVIDERS: Admitting Provider Family Medicine; Emergency Provider Emergency Medicine; PCP Internal Medicine; Visit Provider Internal Medicine
DX: F11.23 Opioid dependence with withdrawal (principal); F14.19 Cocaine abuse with unspecified cocaine-induced disorder; J45.909 Unspecified asthma, uncomplicated; F32.A Depression, unspecified; F17.290 Nicotine dependence, other tobacco product, uncomplicated; S22.31XA Fracture of one rib, right side, initial encounter for closed fracture; F41.9 Anxiety disorder, unspecified; F43.10 Post-traumatic stress disorder, unspecified; F15.20 Other stimulant dependence, uncomplicated; X58.XXXA Exposure to other specified factors, initial encounter
CPT/HCPCS: 71100; 80053; 80307; 82077; 84703; 85025; 86703; 86706; 86780; 86803; 87340; 94668; 99252; 99283; G0463